=== PATIENT | female | born 1990 | race Caucasian/White ===

== ENCOUNTER 2023-01-29 15:33 | Emergency (ER) | payer OTHER, SELFPAY ==
[2023-01-29 15:44] VITALS: BP 122/86; PULSE 90; RESP 16; TEMP 36.8; O2SAT 99; BMI 36.6
--- NOTE | 2023-01-29 16:08 | ED_ITS ---
Documented by User: EMMANUEL Casarez 01/29/23 16:11 HPI - General Adult General Chief complaint: Extremity Problem, Nontraumatic Stated complaint: fibro flare up Time Seen by Provider: 01/29/23 15:39 Source: patient Mode of arrival: walk-in Limitations: no limitations History of Present Illness HPI narrative: patient is a 32-year-old female who presents to the emergency department concerned that she is having a fibromyalgia flareup. She states for the last several days she has had a burning pain in her left foot and ankle and states the pain radiates to the posterior left leg to the mid thigh. She has had no specific calf pain, no swelling or redness of the leg. She is on gabapentin for a previous diagnosis of fibromyalgia by her PCP. She was previously diagnosed with restless leg syndrome. She denies any injuries or traumas to the leg. She has had no redness, drainage, or wounds of the left leg. She is not concerned for . She has had no fevers, chills, nausea, vomiting, urinary symptoms. she is able to ambulate. She states she feels like her left foot is on fire , no numbness Related Data Home Medications Medication Instructions Recorded Confirmed duloxetine 60 mg capsule,delayed 60 mg PO DAILY 01/29/23 01/29/23 release gabapentin 300 mg capsule 300 mg PO BID 01/29/23 01/29/23 lamotrigine 100 mg tablet 100 mg PO DAILY 01/29/23 01/29/23 Previous Rx's Medication Instructions Recorded ketorolac 10 mg tablet 10 mg PO TID PRN pain #10 tabs 01/29/23 methocarbamol 750 mg tablet 750 mg PO TID PRN pain #20 tabs 01/29/23 methylprednisolone 4 mg tablets in See Rx Instructions .Route 01/29/23 a dose pack (Medrol (Bal)) .COMPLEX #21 ea Allergies Allergy/AdvReac Type Severity Reaction Status Date / Time No Known Drug Allergies Allergy Verified 01/29/23 15:42 Review of Systems ROS Constitutional Denies: fever or chills Cardiovascular Denies: chest pain Respiratory Denies: shortness of breath or cough Gastrointestinal Denies: nausea or vomiting Genitourinary Denies: painful urination or urinary incontinence Musculoskeletal Reports: extremity pain; Denies: back pain, neck pain or extremity swelling Integumentary/Breast Reports: skin pain; Denies: redness Hematologic/Lymphatic Denies: easy bruising PFSH [facility] Social History Smoking status: Heavy tobacco smoker Exam Narrative Exam Narrative: Gen.: Awake, alert, in no distress Head: Normocephalic, atraumatic ENT: Moist mucous membranes Respiratory: No respiratory distress Extremities: Moves extremities equally, normal flexion and extension of the left foot, no bony tenderness of the left foot or ankle. Left calf is soft and nontender. Patient is able to flex and extend at the left knee and hip. No swelling, redness or wounds noted of the left leg. Psych: Normal mood and affect Neuro: No focal neuro deficit Skin: Warm, dry, intact Constitutional Vital Signs, click to edit/add: Last Vital Signs Temp 98.3 F 01/29/23 15:44 Pulse 90 01/29/23 15:44 Resp 16 01/29/23 15:44 BP 122/86 01/29/23 15:44 Pulse Ox 99 01/29/23 15:44 O2 Del Method Room Air 01/29/23 15:44 Course Vital Signs Vital signs: Vital Signs Temperature 98.3 F 01/29/23 15:44 Pulse Rate 90 01/29/23 15:44 Respiratory Rate 16 01/29/23 15:44 Blood Pressure 122/86 01/29/23 15:44 Pulse Oximetry 99 01/29/23 15:44 Oxygen Delivery Method Room Air 01/29/23 15:44 Temperature 98.3 F 01/29/23 15:44 Pulse Rate 90 01/29/23 15:44 Respiratory Rate 16 01/29/23 15:44 Blood Pressure 122/86 01/29/23 15:44 Pulse Oximetry 99 01/29/23 15:44 Oxygen Delivery Method Room Air 01/29/23 15:44 Medical Decision Making MDM Narrative Medical decision making narrative: exam is consistent with left-sided sciatica versus fibromyalgia exacerbation. Patient started on a Medrol Dosepak, NSAIDs and muscle relaxants. Follow-up with PCP and return to the Emergency Room if symptoms change or worsen. Medical Records Medical records reviewed: Yes I reviewed the patient's medical records Discharge Plan Discharge Chief Complaint: Extremity Problem, Nontraumatic Clinical Impression: Acute pain of left lower extremity Patient Disposition: Home, Self-Care Time of Disposition Decision: 16:04 Condition: Good Prescriptions / Home Meds: New ketorolac 10 mg tablet 10 mg PO TID PRN (Reason: pain) Qty: 10 0RF methocarbamol 750 mg tablet 750 mg PO TID PRN (Reason: pain) Qty: 20 0RF methylprednisolone [Medrol (Bal)] 4 mg tablets,dose pack See Rx Instructions .ROUTE .COMPLEX Qty: 21 0RF Rx Instructions: Taper as directed No Action lamotrigine 100 mg tablet 100 mg PO DAILY gabapentin 300 mg capsule 300 mg PO BID duloxetine 60 mg capsule,delayed release(DR/EC) 60 mg PO DAILY Instructions: Fibromyalgia (ED), Sciatica (ED), Leg Pain (ED) Stand Alone Forms: Portal Instructions Referrals: Rosario Escamilla [Primary Care Provider] - 1 week Discharge Date/Time: 01/29/23 16:23 Documented by User: Aileen Rouse MD 01/29/23 17:03 HPI - General Adult General Chief complaint: Extremity Problem, Nontraumatic Stated complaint: fibro flare up Time Seen by Provider: 01/29/23 15:39 Related Data Home Medications Medication Instructions Recorded Confirmed duloxetine 60 mg capsule,delayed 60 mg PO DAILY 01/29/23 01/29/23 release gabapentin 300 mg capsule 300 mg PO BID 01/29/23 01/29/23 lamotrigine 100 mg tablet 100 mg PO DAILY 01/29/23 01/29/23 Previous Rx's Medication Instructions Recorded ketorolac 10 mg tablet 10 mg PO TID PRN pain #10 tabs 01/29/23 methocarbamol 750 mg tablet 750 mg PO TID PRN pain #20 tabs 01/29/23 methylprednisolone 4 mg tablets in See Rx Instructions .Route 01/29/23 a dose pack (Medrol (Bal)) .COMPLEX #21 ea Allergies Allergy/AdvReac Type Severity Reaction Status Date / Time No Known Drug Allergies Allergy Verified 01/29/23 15:42 PFSH PFS Social History Smoking status: Heavy tobacco smoker Exam Constitutional Vital Signs, click to edit/add: Last Vital Signs Temp 98.3 F 01/29/23 15:44 Pulse 90 01/29/23 15:44 Resp 16 01/29/23 15:44 BP 122/86 01/29/23 15:44 Pulse Ox 99 01/29/23 15:44 O2 Del Method Room Air 01/29/23 15:44 Course Vital Signs Vital signs: Vital Signs Temperature 98.3 F 01/29/23 15:44 Pulse Rate 90 01/29/23 15:44 Respiratory Rate 16 01/29/23 15:44 Blood Pressure 122/86 01/29/23 15:44 Pulse Oximetry 99 01/29/23 15:44 Oxygen Delivery Method Room Air 01/29/23 15:44 Temperature 98.3 F 01/29/23 15:44 Pulse Rate 90 01/29/23 15:44 Respiratory Rate 16 01/29/23 15:44 Blood Pressure 122/86 01/29/23 15:44 Pulse Oximetry 99 01/29/23 15:44 Oxygen Delivery Method Room Air 01/29/23 15:44 Medical Decision Making MDM Narrative Medical decision making narrative: exam is consistent with left-sided sciatica versus fibromyalgia exacerbation. Emmanuel thompson started on a Medrol Dosepak, NSAIDs and muscle relaxants. Follow-up with PCP and return to the Emergency Room if symptoms change or worsen. Attending physician attestation I have reviewed the mid-level documentation, agree with the documentation, medical decision making and treatment plan as outlined by the mid-level provider. Discharge Plan Discharge Chief Complaint: Extremity Problem, Nontraumatic Clinical Impression: Acute pain of left lower extremity Patient Disposition: Home, Self-Care Time of Disposition Decision: 16:04 Condition: Good Prescriptions / Home Meds: New ketorolac 10 mg tablet 10 mg PO TID PRN (Reason: pain) Qty: 10 0RF methocarbamol 750 mg tablet 750 mg PO TID PRN (Reason: pain) Qty: 20 0RF methylprednisolone [Medrol (Bal)] 4 mg tablets,dose pack See Rx Instructions .ROUTE .COMPLEX Qty: 21 0RF Rx Instructions: Taper as directed No Action lamotrigine 100 mg tablet 100 mg PO DAILY gabapentin 300 mg capsule 300 mg PO BID duloxetine 60 mg capsule,delayed release(DR/EC) 60 mg PO DAILY Instructions: Fibromyalgia (ED), Sciatica (ED), Leg Pain (ED) Stand Alone Forms: Portal Instructions Referrals: Rosario Escamilla [Primary Care Provider] - 1 week Discharge Date/Time: 01/29/23 16:23
[2023-01-29] MEDS: KETOROLAC TROMETHAMINE 60 MG/2 ML VIAL IM (16:16)
== END 2023-01-29 16:23 | disposition home or self-care (01) ==
PROVIDERS: Emergency Provider Emergency Medicine; PCP Nurse Practitioner
DX: M79.605 Pain in left leg (principal); M79.7 Fibromyalgia; Z79.899 Other long term (current) drug therapy; F17.210 Nicotine dependence, cigarettes, uncomplicated
CPT/HCPCS: 96372; 99284

== ENCOUNTER 2023-06-23 10:33 | Outpatient (OUT) | payer OTHER, SELFPAY ==
[2023-06-23 11:05] LABS: Basophils Percent Auto 0.7 % (0.2-2.0); Eosinophils Absolute Auto 0.1 10^3/uL (0.0-0.7); Eosinophils Percent Auto 2.5 % (0.9-7.0); Hematocrit 41.2 % (36.0-48.0); Hemoglobin 13.9 g/dL (12.0-16.0); Immature Granulocytes Abs Auto 0.01 10^3/uL (0.00-0.03); Immature Granulocytes Pct Auto 0.2 % (0.0-0.5); Lymphocytes Absolute Auto 1.8 10^3/uL (1.2-3.8); Lymphocytes Percent Auto 32.4 % (20.5-60.0); Mean Corpuscular HGB Conc 33.7 g/dL (29.9-35.2); Mean Corpuscular Hemoglobin 30.5 pg (26.7-34.0); Mean Corpuscular Volume 90.4 fL (81.0-99.0); Mean Platelet Volume 10.2 fL (9.5-13.5); Monocytes Absolute Auto 0.4 10^3/uL (0.3-0.8); Monocytes Percent Auto 7.6 % (1.7-12.0); Neutrophils Absolute Auto 3.2 10^3/uL (1.4-6.5); Neutrophils Percent Auto 56.6 % (43.0-75.0); Platelet Count 160 10^3/uL (150-450); Red Blood Count 4.56 10^6/uL (4.20-5.40); Red Cell Distribution Width 12.2 % (11.0-15.0); White Blood Count 5.6 10^3/uL (4.0-11.0)
[2023-06-23 11:42] LABS: Estimated Average Glucose 94 mg/dL; Glycohemoglobin A1C 4.9 % (4.5-6.2)
[2023-06-23 11:58] LABS: Free T4 0.78 ng/dL (0.76-1.46)
[2023-06-23 12:02] LABS: HCG Quantitative <1 mIU/mL; Thyroid Stimulating Hormone 2.347 uIU/mL (0.358-3.740)
[2023-06-24 08:13] LABS: FSH 10.4 mIU/mL (.); Prolactin 6.1 ng/mL (4.8-33.4)
[2023-06-29 09:07] LABS: DHEA, Serum 498 ng/dL (31-701)
== END 2023-06-23 10:34 | disposition home or self-care (01) ==
LOC: LAB 10:37
PROVIDERS: PCP Nurse Practitioner; Visit Provider Obstetrics & Gynecology
DX: E28.2 Polycystic ovarian syndrome (principal); N64.52 Nipple discharge
CPT/HCPCS: 36415; 82626; 82627; 83001; 83002; 83036; 84146; 84439; 84443; 84702; 85025; 87070

== ENCOUNTER 2023-07-08 10:03 | Outpatient (OUT) | payer OTHER, SELFPAY ==
--- NOTE | 2023-07-08 | US_ITS ---
The [address] [address] Patient Name: LINA ALCANTAR MRN: [id number] date: 1990 Sex: F Assigned Patient Location: [facility] Current Patient Location: [facility] Accession/Order Number: [id number] Exam Date: 07/08/2023 10:06 Report Date: 07/08/2023 11:26 At the request of: JOHN RAJPUT Procedure: US pelvis w/ transvaginal EXAM: Pelvic ultrasound HISTORY: . PCOS . COMPARISON: None. TECHNIQUE: Transabdominal and transvaginal scanning was performed FINDINGS: Scanning of the pelvis demonstrates uterus to measure 9.4 x 4.7 x 6.3 cm. Uterus is anteverted. Endometrial complex measures 6 mm. Right ovary measures 2.4 x 1.5 x 1.9 cm. Color-flow is noted. There are a few small follicles noted. Left ovary measures 3.6 x 2.6 x 2 cm. Color-flow is noted. There are a few follicles noted. No fluid is noted in the cul-de-sac. US/US pelvis w/ transvaginal IMPRESSION: 1. Normal-appearing uterus and endometrial complex. 2. Normal-appearing ovaries. Electronically authenticated by: GINNY JEFFRIES Date: 07/08/2023 11:26
--- OUTSIDE RECORDS SUMMARY | 2023-07-08 10:19 | XMS_ITS | CCD ---
Author Name Unknown Address [address] [place] [address] Organization [facility] Care Team Providers Care Hand Ii Thermal Cutter Name Role Phone Lissette Lee Unavailable Lissette Shin Unavailable AICHHOLZ, ORE SMELTER MERCY Admitting Unavailable AICHHOLZ, ORE SMELTER MERCY Attending Unavailable AICHHOLZ, ORE SMELTER MERCY Primary Care Unavailable AICHHOLZ, ORE SMELTER MERCY Consulting Unavailable AICHHOLZ, ORE SMELTER MERCY Admitting Unavailable AICHHOLZ, ORE SMELTER MERCY Attending Unavailable AICHHOLZ, ORE SMELTER MERCY Primary Care Unavailable AICHHOLZ, ORE SMELTER MERCY Consulting Unavailable AICHHOLZ, ORE SMELTER MERCY Admitting Unavailable AICHHOLZ, ORE SMELTER MERCY Attending Unavailable AICHHOLZ, ORE SMELTER MERCY Primary Care Unavailable AICHHOLZ, ORE SMELTER MERCY Consulting Unavailable AICHHOLZ, ORE SMELTER MERCY Primary Care Unavailable ROBERT ONTIVEROS Consulting Unavailable ROBERT ONTIVEROS Admitting Unavailable ROBERT ONTIVEROS Attending Unavailable AICHHOLZ, ORE SMELTER MERCY Primary Care Unavailable MARICEL ., CAROLYNN Admitting Unavailable MARICEL .GUSTAVOID Attending Unavailable MARICEL ., CAROLYNN Consulting Unavailable AICHHOLZ, ORE SMELTER MERCY Primary Care Unavailable MARICEL ., CAROLYNN Admitting Unavailable MARICEL .GUSTAVOID Attending Unavailable MARICEL ., CAROLYNN Consulting Unavailable AICHHOLZ, ORE SMELTER MERCY Primary Care Unavailable DR MARCY GU Admitting Unavailable SAMANTHA Vasquez, DR VIDAL Attending Unavailable Emmanuel Roman Consulting Unavailable DR MARCY GU Consulting Unavailable AICHHOLZ, ORE SMELTER MERCY Admitting Unavailable AICHHOLZ, ORE SMELTER MERCY Attending Unavailable AICHHOLZ, ORE SMELTER MERCY Primary Care Unavailable AICHHOLZ, ORE SMELTER MERCY Consulting Unavailable AICHHOLZ, ORE SMELTER MERCY Admitting Unavailable AICHHOLZ, ORE SMELTER MERCY Attending Unavailable CRISTINO GRIJALVAA Primary Care Unavailable CRISTINO GRIJALVA MERCY Consulting Unavailable Unavailable Primary Care Provider UnavailMani Bonds MD Primary Care Provider DENISSE ANN Attending Unavailable DENISSE ANN Attending Unavailable BELEN SPENCER Attending Unavailable MANI GALVAN Primary Care Unavailable MERCY GRIJALVA Attending Unavailable JOHN RAJPUT Attending Unavailable Medications Current Medications Medication Drug Class(es) Dates Sig (Normalized) Sig (Original) acetaminophen 325 mg oral tablet (3 sources) Start: 10-23-2022 acetaminophen (TYLENOL) tablet 650 mg take 2 tablets by mo ut every six hours as needed for pain acetaminophen (TYLENOL) 325 MG tablet Ta ke 2 tablets by mouth every 6 hours as needed for Pain 0 Active acetaminophen 325 mg / HYDROcodone bitartrate 5 mg oral tablet (3 sources) Opioid Agonist Start: 10-22-2022 End: 10-24-2022 HYDROcodone-acetaminophen (NORCO) 5-325 MG per tablet Indications: Nonintractable headache, unspecified chronicity pattern, unspecified headache type , Acute recurrent sinusitis, unspecified location Take 1 tablet by mouth every 6 hours as needed for Pain for up to 2 days. Intended supply: 3 days. Take lowest dose possible to manage pain Max Daily Amount: 4 tablets 4 tablet 0 10/22/2022 10/24/2022 Active Start: 10-22-2022 End: 10-22-2022 HYDROcodone-acetaminophen (N ORCO) 5-325 MG per tablet 1 tablet [id number] 200 actuat albuterol 0.09 mg/actuat metered dose inhaler (1 source) beta2-Adrenergic Agonist Start: 12-22-2021 take 2 puff(s) by inhalation every four to six hours as needed Albuterol Sulfate HFA 108 (90 Base) MCG/ACT 2 puffs as needed Inhalation every 4-6 hours for 14 days Nov, Active amoxicillin 875 mg / clavulanate 125 mg oral tablet (2 sources) Penicillin-class Antibacterial Start: 10-22-2022 End: 11-01-2022 take 1 tablet by mouth twice daily amoxicillin-cla vulanate (AUGMENTIN) 875-125 MG per tablet Take 1 tablet by mouth 2 times daily for 10 days 20 tablet 0 10/22/2022 11/01/2022 Active cetirizine hydrochloride 10 mg oral tablet (1 source) Histamine-1 Receptor Antagonist Start: 06-04-2021 take 1 tablet by mouth every twelve hours Cetirizine HCl 10 MG 1 tablet Orally Twice a day for 30 day(s) May, Active DULoxetine 60 mg delayed release oral capsule (2 sources) Serotonin and Norepinephrine Reuptake Inhibitor take 1 capsule by mouth once daily DULoxetine (CYMBALTA) 60 MG extended release capsule Take 1 capsule by mouth daily 0 Active fluticasone propionate 0.05 mg/actuat metered dose nasal spray (3 sources) Corticosteroid Start: 06-04-2021 take 1 spray(s) nasal route twice daily Flonase Allergy Relief 50 MCG/ACT 1 spray in each nostril Nasally twice a day for 30 day(s) May, Active Fluticasone Prop ionate (FLONASE NA) by Nasal route 0 Active gabapentin 300 mg oral capsule (2 sources) Anti-epileptic Agent take 1 capsule by mouth once daily gabapentin (NEURONTIN) 300 MG capsule Take 1 capsule by mouth daily. 0 Active rOPINIRole 2 mg oral tablet (1 source) Nonergot Dopamine Agonist take 1 tablet by mouth once daily at bedtime rOPINIRole HCl 2 MG 1 tablet 1 to 3 hours before bedtime Orally Once a day Active Completed/Discontinued Medications Medication Drug Class(es) Dates Sig (Normalized) Sig (Original) 1 ml diphenhydrAMINE hydrochloride 50 mg/ml cartridge (2 sources) Histamine-1 Receptor Antagonist Start: 10-22-2022 End: 10-23-2022 diphenhydrAMINE (BENADRYL) injection 25 mg 1 ml haloperidol 5 mg/ml injection (1 source) Typical Antipsychotic Start: 10-23-2022 End: 10-23-2022 haloperidol lactate (HALDOL) injection 2 mg 1 ml ketorolac tromethamine 30 mg/ml cartridge (1 source) Nonsteroidal Anti-inflammatory Drug, Cyclooxygenase Inhibitor Start: 10-22-2022 End: 10-22-2022 ketorolac (TORADOL) injection 30 mg promethazine hydrochloride 25 mg oral tablet (1 source) Phenothiazine Start: 10-22-2022 End: 10-22-2022 promethazine (PHENERGAN) tablet 25 mg 50 ml sodium chloride 9 mg/ml injection (2 sources) Start: 10-22-2022 End: 10-23-2022 0.9 % sodium chloride bolus Problems Active Problems Problem Classification Problem Date Documented Da te Episodic/Chronic Headache; including migraine (2 sources) Migraine without aura, not refractory ; Translations: [Migraine without aura, not intractable, with status migrainosus] Onset: 10-23-2022 Chronic Headache; including migraine (1 source) Headache; Translations: [Nonintractable headache, unspecified chronicity pattern, unspecified headache type] Episodic Headache; including migraine (1 source) Headache; including migraine; Translations: [Headache, unspecified] Onset: 10-22-2022 Nausea and vomiting (5 sources) Nausea with vomiting, unspecified; Translations: [Nausea] Onset: 05-01-2022 Episodic Other gastrointestinal disorders (2 sources) Diarrhea; Translations: [Diarrhea, unspecified] Episodic Other upper respiratory disease (1 source) Congestion of nasal sinus; Translations: [Nasal congestion] Episodic Residual codes; unclassified (1 source) Acquired absence of other specified parts of digestive tract; Translations: [ACQ ABSENCE OTH PART DIGESTV TRACT] Onset: 07-21-2022 Episodic Residual codes; unclassified (1 source) Pain, unspecified; Translations: [Pain, unspecified] Onset: 05-26-2023 Episodic Substance-related disorders (1 source) Nicotine dependence, cigarettes, uncomplicated; Translations: [NICOTINE DEPEND CIGARETTES UNCOMP] Onset: 05-05-2022 Chronic Unclassified (4 sources) CONTACT W/AND (SUSP) EXPOS COVID-19; Translations: [CONTACT W/AND (SUSP) EXPOS COVID-19] Onset: 05-05-2022 Viral infection (1 source) COVID-19; Translations: [COVID-19] Onset: 05-26-2023 Past or Other Problems Problem Classification Problem Date Documented Date Episodic/Chronic Abdominal pain (3 sources) Unspecified abdominal pain; Translations: [UNSPECIFIED ABDOMINAL PAIN] Onset: 12-24-2021 Episodic Allergic reactions (1 source) Unspecified contact dermatitis, unspecified cause; Translations: [UNS CONTACT DERMATITIS UNS CAUSE] Onset: 02-10-2022 Episodic Fever of unknown origin (2 sources) Fever, unspecified; Translations: [FEVER UNSPECIFIED] Onset: 12-22-2021 Resolved: 12-22-2021 Episodic Fluid and electrolyte disorders (1 source) Dehydration; Translations: [DEHYDRATION] Onset: 05-05-2022 Episodic Genitourinary symptoms and ill-defined conditions (5 sources) Unspecified abnormal findings in urine; Translations: [UNSPECIFIED ABNORMAL FINDINGS URINE] Onset: 12-31-2021 Episodic Immunizations and screening for infectious disease (1 source) Contact with and (suspected) exposure to other viral communicable diseases Onset: 06-04-2021 Resolved: 06-04-2021 Episodic Malaise and fatigue (5 sources) Other fatigue; Translations: [OTHER FATIGUE] Onset: 12-22-2021 Resolved: 12-22-2021 Episodic Other connective tissue disease (4 sources) Myalgia, unspecified site; Translations: [MYALGIA UNSPECIFIED SITE] Onset: 04-23-2022 Episodic Other screening for suspected conditions (not mental disorders or infectious disease) (1 source) Other specified abnormal findings of blood chemistry; Translations: [OTH SPEC ABNORMAL FINDINGS BLD CHEM] Onset: 01-01-2022 Episodic Other skin disorders (3 sources) Rash and other nonspecific skin eruption; Translations: [RASH OTH NONSPECIFIC SKIN ERUPTION] Onset: 02-08-2022 Episodic Other upper respiratory disease (1 source) Nasal congestion; Translations: [Nasal congestion] Onset: 10-23-2022 Episodic Other upper respiratory infections (11 sources) Sore throat symptom; Translations: [Acute pharyngitis, unspecified] Onset: 06-04-2021 Resolved: 12-22-2021 Episodic Otitis media and related conditions (1 source) Other acute nonsuppurative otitis media, bilateral Onset: 06-04-2021 Resolved: 06-04-2021 Episodic Unclassified (1 source) Cough R05.9 Onset: 12-22-2021 Resolved: 12-22-2021 Unclassified (1 source) CONTACT W/AND (SUSP) EXPOS COVID-19; Translations: [CONTACT W/AND (SUSP) EXPOS COVID-19] Onset: 05-20-2022 Urinary tract infections (1 source) Urinary tract infection, site not specified; Translations: [UTI SITE NOT SPECIFIED] Onset: 12-26-2021 Episodic Viral infection (3 sources) Viral infection, unspecified; Translations: [Viral disease] Onset: 05-05-2022 Episodic Results Test Name Value Interpretation Reference Range Facility Flu A/B Ag Detectionon 05-26 Flu A Ag Detection Negative Normal NEG [facility] Comment on above: Result Comment: for Influenza A Antigen Performed By: #### F DALTON #### [facility] [address] [place] [address] [place] [address] Feed Handler: Taran De Los Santos MD Flu B Ag Detection Negative Normal NEG [facility] Comment on above: Result Comment: for Influenza B Antigen. Performed By: #### F DALTON #### [facility] [address] [place] [address] Feed Handler: Taran De Los Santos MD [id number] 05-26-2023 SARS-CoV-2 (COVID-19) RNA AMPARO+probe Ql (Unsp spec) Detected Abnormal NOTDET [facility] Comment on above: Result Comment: Rapid NAAT: The specimen is POSITIVE for SARS-Cov-2, the novel coronavirus associated with COVID-19. This test has been authorized by the FDA under an Emergency Use Authorization (EUA) for use by authorized laboratories. The ID NOW COVID-19 assay is designed to detect the virus that causes COVID-19 in patients with signs and symptoms of infection who are suspected of COVID-19. An individual without symptoms of COVID-19 and who is not shedding SARS-CoV-2 virus would expect to have a negative (not detected) result in this assay. Fact sheet for Healthcare Providers: https://www.fda.gov/media/334031/download Fact sheet for Patients: https://www.fda.gov/media/792991/download Methodology: Isothermal Nucleic Acid Amplification Results reported to the appropriate Health Department Performed By: #### R CAMBERING MACHINE OPERATOR #### [facility] [address] [place] [address] Feed Handler: Enrique Ortega MD [facility] [address] [place] [address] [place] [address] Feed Handler: Taran De Los Santos MD Resp Viral Panelon 3 Adenovirus Detected Abnormal NOTDET [facility] Comment on above: Performed By: #### R CAMBERING MACHINE OPERATOR #### [id number] [place] [address] Feed Handler: Enrique Ortega MD [facility] [address] [place] [address] [place], [place] [id number] Feed Handler: MD Stella Newbyt.[email or web address] Not detected Normal [facility] Comment on above: Performed By: #### R CAMBERING MACHINE OPERATOR #### [address] [address] Feed Handler: Enrique Ortega MD [address] [place], [place] [id number] Feed Handler: Taran De Los Santos MD Bordetella pertussis Not detected Normal [facility] Comment on above: Performed By: #### R CAMBERING MACHINE OPERATOR #### [address] [address] Feed Handler: Enrique Ortega MD [facility] [address] [place] [address] [place] [address] Feed Handler: Taran De Los Santos MD Chlamyd.pneumoniae Not detected Normal [facility] Comment on above: Performed By: #### R CAMBERING MACHINE OPERATOR #### [address] [address] Feed Handler: Enrique Ortega MD [facility] [address] [place] [address] [place] [address] Feed Handler: Taran De Los Santos MD Coronavirus [id number] Not detected Normal [facility] Comment on above: Performed By: #### R CAMBERING MACHINE OPERATOR #### [address] [address] Feed Handler: Enrique Otrega MD [facility] [address] [place] [address] [place], [place] [id number] Feed Handler: Taran De Los Santos MD Coronavirus HKU1 Not detected Normal [facility] Comment on above: Performed By: #### R CAMBERING MACHINE OPERATOR #### [facility] [address] [place] [address] Feed Handler: Enrique Ortega MD [facility] [address] [place] [address] Dr[place], [place] [id number] Feed Handler: Taran De Los Santos MD Coronavirus NL63 Not detected [facility] Comment on above: Performed By: #### R CAMBERING MACHINE OPERATOR #### [address] [address] Feed Handler: Enrique Ortega MD [facility] [address] [place] [address] [place], [place] [id number] Feed Handler: Taran De Los Santos MD Coronavirus OC43 Not detected [facility] Comment on above: Performed By: #### R CAMBERING MACHINE OPERATOR #### [address] [address] Feed Handler: Enrique Ortega MD [facility] [address] [place] [address] [place] [address] Feed Handler: Taran De Los Santos MD Human Metapneumo Not detected [facility] Comment on above: Performed By: #### R CAMBERING MACHINE OPERATOR #### [address] [address] Feed Handler: Enrique Ortega MD [facility] [address] [place] [address] [place] [address] Feed Handler: Taran De Los Santos MD Influenza A Not detected [facility] Comment on above: Performed By: #### R CAMBERING MACHINE OPERATOR #### [address] [address] Feed Handler: Enrique Ortega MD [facility] [address] [place] [address] [place] [address] Feed Handler: Taran De Los Santos MD Influenza B Not detected Normal [facility] Comment on above: Performed By: #### R CAMBERING MACHINE OPERATOR #### [facility] [address] [place] [address] Feed Handler: Enrique Ortega MD [facility] [address] [place] [address] [place] [address] Feed Handler: Taran De Los Santos MD Mycoplas.pneumoniae Not detected Normal [facility] Comment on above: Result Comment: Perf ormed by multiplexed nucleic acid assay. Performed By: #### R CAMBERING MACHINE OPERATOR #### [address] [address] Feed Handler: Enrique Ortega MD [facility] [address] [place] [address] [place] [address] Feed Handler: Taran De Los Santos MD Parainfluenza 1 Not detected Normal [facility] Comment on above: Performed By: #### R CAMBERING MACHINE OPERATOR #### [address] [address] Feed Handler: Enrique Ortega MD [facility] [address] [place] [address] [place] [address] Feed Handler: Taran De Los Santos MD Parainfluenza 2 Not detected [facility] Comment on above: Performed By: #### R CAMBERING MACHINE OPERATOR #### [address] [address] Feed Handler: Enrique Ortega MD [facility] [address] [place] [address] [place] [address] Feed Handler: Taran De Los Santos MD Parainfluenza 3 Not detected Normal [facility] Comment on above: Performed By: #### R CAMBERING MACHINE OPERATOR #### [facility] [address] [place] [address] Feed Handler: Enrique Ortega MD [facility] [address] [place] [address] [place] [address] Feed Handler: Taran De Los Santos MD Parainfluenza 4 Not detected Normal [facility] Comment on above: Performed By: #### R CAMBERING MACHINE OPERATOR #### [facility] [address] [place] [address] Feed Handler: Enrique Ortega MD [facility] [address] [place] [address] [place], [place] [id number] Feed Handler: Taran De Los Santos MD Resp Syncytial Virus Not detected Normal [facility] Comment on above: Performed By: #### R CAMBERING MACHINE OPERATOR #### [address] [address] Feed Handler: Enrique Ortega MD [address] [place], [place] [id number] Feed Handler: Taran De Los Santos MD Rhino/Enterovirus Not detected [facility] Comment on above: Performed By: #### R CAMBERING MACHINE OPERATOR #### [facility] [address] [place] [address] Feed Handler: Enrique Ortega MD [facility] [address] [place] [address] [address], [place] [id number] Feed Handler: Taran De Los Santos MD SARS-CoV-2 (COVID-19) RNA AMPARO+probe Ql (Unsp spec) Not detected Normal [facility] Comment on above: Performed By: #### R CAMBERING MACHINE OPERATOR #### [address] [address] Feed Handler: Enrique Ortega MD [facility] [address] [place] [address] [place], [place] [id number] Feed Handler: Taran De Los Santos MD [facility] 10-23-2022 Anion gap [Moles/Vol] 10 mmol/L 9 - 17 mmol/L [facility] Calcium [Mass/Vol] 8.4 mg/dL Low 8.6 - 10. 4 mg/dL [facility] Chloride [Moles/Vol] 107 mmol/L 98 - 10 7 mmol/L [facility] CO2 [Moles/Vol] 24 mmol/L 20 - 31 mmol/L [facility] Creatinine [Mass/Vol] 0.88 mg/dL 0.50 - 0.90 mg/dL [facility] GFR/1.73 sq M.predicted MDRD (S/P/Bld) [Vol rate/Area] - PINF [facility] Comment on above: These results are not intended for use in patients <18 years of age. eGFR results are calculated without a race factor using the 2020 CKD-EPI equation. Careful clinical correlation is recommended, particularly when comparing to results calculated using previous equations. The CKD-EPI equation is less accurate in patients with extremes of muscle mass, extra-renal metabolism of creatine, excessive creatine ingestion, or following therapy that affects renal tubular secretion. Glucose [Mass/Vol] 95 mg/dL 70 - 99 mg/dL [facility] Potassium [Moles/Vol] 3.9 mmol/L 3.7 - 5.3 mmol/L [facility] Sodium [Moles/Vol] 141 mmol/L 135 - 144 mmol/L [facility] Urea nitrogen [Mass/Vol] 7 mg/dL 6 - 20 mg/dL [facility] Urea nitrogen/Creatinine [Mass ratio] 8 mg/mg Low 9 - 20 [facility] Basic Metabolic Profon 10-23 Anion gap [Moles/Vol] 10 mmol/L Normal -17 [facility] Comment on above: Performed By: #### C DP, IPF, SED, BMP, CRP #### [facility] [address] [place] [address] Feed Handler: Taran De Los Santos MD BUN/CRE Ratio 8 Low 9-20 [facility] Comment on above: Performed By: #### C DP, IPF, SED, BMP, CRP #### [facility] [address] [place] [address] Feed Handler: Taran De Los Santos MD Calcium [Mass/Vol] 8.4 mg/dL Low 8.6-10.4 [facility] Comment on above: Performed By: #### C DP, IPF, SED, BMP, CRP #### [facility] [address] [place] [address] Feed Handler: Taran De Los Santos MD Chloride [Moles/Vol] 107 mmol/L Normal 98-107 [facility] Comment on above: Performed By: #### C DP, IPF, SED, BMP, CRP #### [facility] [address] [place] [address] Feed Handler: Taran De Los Santos MD CO2 [Moles/Vol] 24 mmol/L Normal 20-31 [facility] Comment on above: Performed By: #### C DP, IPF, SED, BMP, CRP #### [facility] [address] [place] [address] Feed Handler: Taran De Los Santos MD Creatinine [Mass/Vol] 0.88 mg/dL Normal 0.50-0.90 [facility] Comment on above: Performed By: #### C DP, IPF, SED, BMP, CRP #### [facility] [address] [place] [address] Feed Handler: Taran De Los Santos MD GFR/1.73 sq M.predicted among non-blacks MDRD (S/P/Bld) [Vol rate/Area] mL/min/{1.73_m2} Normal >60 [facility] Comment on above: Result Comment: These results are not intended for use in patients <18 years of age. eGFR results are calculated without a race factor using the 2020 CKD-EPI equation. Careful clinical correlation is recommended, particularly when comparing to results calculated using previous equations. The CKD-EPI equation is less accurate in patients with extremes of muscle mass, extra-renal metabolism of creatine, excessive creatine ingestion, or following therapy that affects renal tubular secretion. Performed By: #### C DP, IPF, SED, BMP, CRP #### [facility] [address] [place] [address] Feed Handler: Taran De Los Santos MD Glucose [Mass/Vol] 95 mg/dL Normal 70-99 [facility] Comment on above: Performed By: #### C DP, IPF, SED, BMP, CRP #### [facility] [address] [place] [address] Feed Handler: Taran De Los Santos MD Potassium [Moles/Vol] 3.9 mmol/L Normal 3.7-5.3 [facility] Comment on above: Performed By: #### C DP, IPF, SED, BMP, CRP #### [facility] [address] [place] [address] Feed Handler: Taran De Los Santos MD Sodium [Moles/Vol] 141 mmol/L Normal 135-144 [facility] Comment on above: Performed By: #### C DP, IPF, SED, BMP, CRP #### [address] [place] [address] Feed Handler: Taran De Los Santos MD Urea nitrogen [Mass/Vol] 7 mg/dL Normal 6-20 [facility] Comment on above: Performed By: #### C DP, IPF, SED, BMP, CRP #### [address] [place] [address] Feed Handler: Taran De Los Santos MD C-Reactive Proteinon 023 CRP [Mass/Vol] 34.0 mg/L High 0.0-5.0 [facility] Comment on above: Performed By: #### C DP, IPF, SED, BMP, CRP #### [facility] [address] [place] [address] [place], [place] [id number] Feed Handler: Taran De Los Santos MD CRP High sensitivity method [Mass/Vol] 34 mg/L High 0.0 - 5.0 mg/L [facility] CBC with Auto Differentialon 10-23-2022 Basophils (Bld) [#/Vol] [facility] Basophils/100 WBC (Bld) 0 % 0 - 2 % [facility] Eosinophils (Bld) [#/Vol] 0.07 10*3/uL [facility] Eosinophils/100 WBC (Bld) 1 % 1 - 4 % [facility] Erythrocyte distribution width (RBC) [Ratio] 13.0 % 11.8 - 14.4 % [facility] Hematocrit (Bld) [Volume fraction] 39.0 % 36.3 - 47.1 % [facility] Hemoglobin (Bld) [Mass/Vol] 13.1 g/dL 11.9 - 15.1 g/dL [facility] Immature granulocytes (Bld) [#/Vol] [facility] Immature granulocytes/100 WBC (Bld) 0 % 0 [facility] Interpretation and review of laboratory results Abnormal [facility] Lymphocytes/100 WBC (Bld) 17 % Low 24 - 43 % [facility] Lymphocytes/100 WBC (Bld) 1.06 % Low [facility] MCH (RBC) [Entitic mass] 31.2 pg 25.2 - 33.5 pg [facility] MCHC (RBC) [Mass/Vol] 33.6 g/dL 28.4 - 34.8 g/dL [facility] MCV (RBC) [Entitic vol] 92.9 fL 82.6 - 102.9 fL [facility] Monocytes/100 WBC (Bld) 13 % High 3 - 12 % [facility] Monocytes/100 WBC (Bld) 0.82 % [facility] Neutrophils/100 WBC (Bld) 69 % High 36 - 65 % [facility] NRBC Automated 0.0 0.0 per 100 WBC [facility] Platelets (Bld) [#/Vol] See Reflexed IPF Result [facility] RBC (Bld) [#/Vol] 4.20 10*6/uL 3.95 - 5.1 1 m/uL [facility] Segmented neutrophils/100 WBC (Bld) 4.40 % [facility] WBC other (Bld) [#/Vol] 6.4 [facility] CBC with Diffon 10-23-2022 Abs. Basophil <0.03 Normal 0.00-0.20 [facility] Comment on above: Performed By: #### C DP, IPF, SED, BMP, CRP #### [address] [place], [place] [id number] Feed Handler: Taran De Los Santos MD Abs.Imm.Granulocyte <0.03 Normal 0.00-0.30 [facility] Comment on above: Performed By: #### C DP, IPF, SED, BMP, CRP #### [address] [place] [place] [address] Feed Handler: Taran De Los Santos MD Abs.Neutrophil (Seg) 4.40 k/uL Normal 1.50-8.10 [facility] Comment on above: Performed By: #### C DP, IPF, SED, BMP, CRP #### [address] [place] [id number] Feed Handler: Taran De Los Santos MD Basophils/100 WBC (Bld) 0 % Normal 0-2 [facility] Comment on above: Performed By: #### C DP, IPF, SED, BMP, CRP #### [address] [place] [id number] Feed Handler: Taran De Los Santos MD Eosinophils (Bld) [#/Vol] 0.07 10*3/uL Normal 0.00-0.44 [facility] Comment on above: Performed By: #### C DP, IPF, SED, BMP, CRP #### [address] [place], [facility]83 Feed Handler: Taran De Los Santos MD Eosinophils/100 WBC (Bld) 1 % Normal 1-4 [facility] Comment on above: Performed By: #### C DP, IPF, SED, BMP, CRP #### [address] [place], [place] [id number] Feed Handler: Taran De Los Santos MD Immature granulocytes/100 WBC (Bld) 0 % Normal 0 [facility] Comment on above: Performed By: #### C DP, IPF, SED, BMP, CRP #### [facility] [address] [place] [address] Feed Handler: Taran De Los Santos MD Lymphocytes (Bld) [#/Vol] 1.06 10*3/uL Low 1.10-3.70 [facility] Comment on above: Performed By: #### C DP, IPF, SED, BMP, CRP #### [facility] [address] [place], [place] [id number] Feed Handler: Taran De Los Santos MD Lymphocytes/100 WBC (Bld) 17 % Low 24-43 [facility] Comment on above: Performed By: #### C DP, IPF, SED, BMP, CRP #### [address] [place] [id number] Feed Handler: Taran De Los Santos MD Monocytes (Bld) [#/Vol] 0.82 10*3/uL Normal 0.10-1.20 [facility] Comment on above: Performed By: #### C DP, IPF, SED, BMP, CRP #### [address] [place], [place] [id number] Feed Handler: Taran De Los Santos MD Monocytes/100 WBC (Bld) 13 % High 3-12 [facility] Comment on above: Performed By: #### C DP, IPF, SED, BMP, CRP #### [facility] [address] [place] [address] [place] [place], [place] [id number] Feed Handler: Taran De Los Santos MD Neutrophil (Seg) 69 % High 36-65 [facility] Comment on above: Performed By: #### C DP, IPF, SED, BMP, CRP #### [facility] [address] [place] [address] Feed Handler: Taran De Los Santos MD Erythrocyte distribution width (RBC) [Ratio] 13.0 % Normal 11.8-14.4 [facility] Comment on above: Performed By: #### C DP, IPF, SED, BMP, CRP #### [address] [place] [id number] Feed Handler: Taran De Los Santos MD Hematocrit (Bld) [Volume fraction] 39.0 % Normal 36.3-47.1 [facility] Comment on above: Performed By: #### C DP, IPF, SED, BMP, CRP #### [address] [place] [id number] Feed Handler: Taran De Los Santos MD Hemoglobin (Bld) [Mass/Vol] 13.1 g/dL Normal 11.9-15.1 [facility] Comment on above: Performed By: #### C DP, IPF, SED, BMP, CRP #### [address] [place], [facility]83 Feed Handler: Taran De Los Santos MD MCH (RBC) [Entitic mass] 31.2 pg Normal 25.2-33.5 [facility] Comment on above: Performed By: #### C DP, IPF, SED, BMP, CRP #### [address] [place] [address] Feed Handler: Taran De Los Santos MD MCHC (RBC) [Mass/Vol] 33.6 g/dL Normal 28.4-34.8 [facility] Comment on above: Performed By: #### C DP, IPF, SED, BMP, CRP #### [address] [place], [facility]83 Feed Handler: Taran De Los Santos MD MCV (RBC) [Entitic vol] 92.9 fL Normal 82.6-102.9 [facility] Comment on above: Performed By: #### C DP, IPF, SED, BMP, CRP #### [address] [place] [address] Feed Handler: Taran De Los Santos MD NRBC Automated 0.0 per 100 WBC Normal 0.0 [facility] Comment on above: Performed By: #### C DP, IPF, SED, BMP, CRP #### [facility] [address] [place] [address] [place]. [place], [place] [id number] Feed Handler: Taran De Los Santos MD Platelet Count See Reflexed IPF Result Normal 138-453 [facility] Comment on above: Performed By: #### C DP, IPF, SED, BMP, CRP #### [address] [place], [place] [id number] Feed Handler: Taran De Los Santos MD RBC (Bld) [#/Vol] 4.20 10*6/uL Normal 3.95-5.11 [facility] Comment on above: Performed By: #### C DP, IPF, SED, BMP, CRP #### [address] [place], [facility]83 Feed Handler: Taran De Los Santos MD WBC (Bld) [#/Vol] 6.4 10*3/uL Normal 3.5-11.3 [facility] Comment on above: Performed By: #### C DP, IPF, SED, BMP, CRP #### [address] [place], [facility]83 Feed Handler: Taran De Los Santos MD COVID-19, Rapidon 10-23-2022 SARS-CoV-2 (COVID-19) RdRp gene AMPARO+probe Ql (Resp) Not detected Not Detected [facility] Comment on above: Rapid NAAT: The specimen is NEGATIVE for SARS-CoV-2, the novel coronavirus associated with COVID-19. The ID NOW COVID-19 assay is designed to detect the virus that causes COVID-19 in patients with signs and symptoms of infection who are suspected of COVID-19. An individual without symptoms of COVID-19 and who is not shedding SARS-CoV-2 virus would expect to have a negative (not detected) result in this assay. Negative results should be treated as presumptive and, if inconsistent with clinical signs and symptoms or necessary for patient management, should be tested with an alternative molecular assay. Negative results do not preclude SARS-CoV-2 infection and should not be used as the sole basis for patient management decisions. Fact sheet for Healthcare Providers: https://www.fda.gov/media/623306/download Fact sheet for Patients: https://www.fda.gov/media/796770/download Methodology: Isothermal Nucleic Acid Amplification Specimen Description .NASOPHARYNGEAL SWAB [facility] CT HEAD WO CONTRASTon 2022 CT HEAD WO CONTRAST EXAMINATION: CT OF THE HEAD WITHOUT CONTRAST 10/23/2022 9:24 am TECHNIQUE: CT of the head was performed without the administration of intravenous contrast. Automated exposure control, iterative reconstruction, and/or weight based adjustment of the mA/kV was utilized to reduce the radiation dose to as low as reasonably achievable. COMPARISON: None. HISTORY: ORDERING SYSTEM PROVIDED HISTORY: headache x 2 days TECHNOLOGIST PROVIDED HISTORY: headache x 2 days Decision Support Exception - unselect if not a suspected or confirmed emergency medical condition->Emergency Medical Condition (MA) Is the patient ?->No FINDINGS: BRAIN/VENTRICLES: There is no acute intracranial hemorrhage, mass effect or midline shift. No abnormal extra-axial fluid collection. The sanderson-white differentiation is maintained without evidence of an acute infarct. There is no evidence of hydrocephalus. ORBITS: The visualized portion of the orbits demonstrate no acute abnormality. SINUSES: There is mild frontal and patchy ethmoid sinus mucosal thickening SOFT TISSUES/SKULL: No acute abnormality of the visualized skull or soft tissues. IMPRESSION: No acute intracranial abnormality. Paranasal sinus inflammatory disease Interpreted by: Joby Holt MD Signed by: Joby Holt MD 10/23/22 Final result Normal [facility] CT Head W/O Contraston 10-23 No acute intracrania l abnormality. Paranasal sinus inflammatory disease [facility] RIS CONSOLIDATED EXAMINATION: CT OF THE HEAD WITHOUT CONTRAST 10/23/2022 9:24 am TECHNIQUE: CT of the head was performed without the administration of intravenous contrast. Automated exposure control, iterative reconstruction, and/or weight based adjustment of the mA/kV was utilized to reduce the radiation dose to as low as reasonably achievable. COMPARISON: None. HISTORY: ORDERING SYSTEM PROVIDED HISTORY: headache x 2 days TECHNOLOGIST PROVIDED HISTORY: headache x 2 days Decision Support Exception - unselect if not a suspected or confirmed emergency medical condition->Emergency Medical Condition (MA) Is the patient ?->No FINDINGS: BRAIN/VENTRICLES: There is no acute intracranial hemorrhage, mass effect or midline shift. No abnormal extra-axial fluid collection. The sanderson-white differentiation is maintained without evidence of an acute infarct. There is no evidence of hydrocephalus. ORBITS: The visualized portion of the orbits demonstrate no acute abnormality. SINUSES: There is mild frontal and patchy ethmoid sinus mucosal thickening SOFT TISSUES/SKULL: No acute abnormality of the visualized skull or soft tissues. [facility] Joby La M D - 10/23/2022 EXAMINATION: CT OF THE HEAD WITHOUT CONTRAST 10/23/2022 9:24 am TECHNIQUE: CT of the head was performed without the administration of intravenous contrast. Automated exposure control, iterative reconstruction, and/or weight based adjustment of the mA/kV was utilized to reduce the radiation dose to as low as reasonably achievable. COMPARISON: None. HISTORY: ORDERING SYSTEM PROVIDED HISTORY: headache x 2 days TECHNOLOGIST PROVIDED HISTORY: headache x 2 days Decision Support Exception - unselect if not a suspected or confirmed emergency medical condition->Emergency Medical Condition (MA) Is the patient ?->No FINDINGS: BRAIN/VENTRICLES: There is no acute intracranial hemorrhage, mass effect or midline shift. No abnormal extra-axial fluid collection. The sanderson-white differentiation is maintained without evidence of an acute infarct. There is no evidence of hydrocephalus. ORBITS: The visualized portion of the orbits demonstrate no acute abnormality. SINUSES: There is mild frontal and patchy ethmoid sinus mucosal thickening SOFT TISSUES/SKULL: No acute abnormality of the visualized skull or soft tissues. IMPRESSION: No acute intracranial abnormality. Paranasal sinus inflammatory disease [facility] [employer] Phone: Radiology Study observation (narrative) [employer] Phone: CT Head W/O ContrastOrdered By: Joby Holt on 10-23-2022 [facility] [employer] Phone: Flu A/B Ag Detectionon 10-23 Flu A Ag Detection Negative Normal NEG [facility] Comment on above: Result Comment: for Influenza A Antigen Performed By: #### R CAMBERING MACHINE OPERATOR #### [facility] [address] [place] [address] Feed Handler: Enrique Ortega MD [facility] [address] [place] [address] [place] [id number] Feed Handler: Taran De Los Santos MD Flu B Ag Detection Negative Normal NEG [facility] Comment on above: Result Comment: for Influenza B Antigen. Performed By: #### R CAMBERING MACHINE OPERATOR #### [facility] [address] [place] [address] Feed Handler: Enrique Ortega MD [facility] [address] [place] [address] [place] [address] Feed Handler: Taran De Los Santos MD Immature Platelet Fractionon 10-23-2022 Interpretation and review of laboratory results Abnormal [facility] Platelet, Fluorescence 128 Low [facility] Platelets reticulated/100 platelets Auto (Bld) 5.2 % 1.1 - 10.3 % [facility] Mononucleosis Screenon 10-23 Mononucleosis Screen Negative Normal NEG [facility] Comment on above: Performed By: #### M CHERYL #### [facility] [address] [place] [address] [place] [id number] Feed Handler: Taran De Los Santos MD Heterophile Ab IA Ql (Bld) Negative NEGATIVE [facility] No Panel Informationon 10-23 Interpretation and review of laboratory results Abnormal [facility] PLT, Immature Fract.on 10-23 Platelet, Fluoresc. 128 k/uL Low 138-453 [facility] Comment on above: Performed By: #### C DP, IPF, SED, BMP, CRP #### [facility] [address] [place] [address] Dr. [place], [place] [id number] Feed Handler: Taran De Los Santos MD PLT, Immature Fract. 5.2 % Normal 1.1-10.3 [facility] Comment on above: Performed By: #### C DP, IPF, SED, BMP, CRP #### [facility] [address] [place] [address] [place] [address] Feed Handler: Taran De Los Santos MD Rapid influenza A/B antigens on 10-23-2022 FLUAV Ag Ql (Unsp spec) Negative NEGATIVE [facility] Comment on above: for Influenza A Anti gen FLUBV Ag Ql (Unsp spec) Negative NEGATIVE [facility] Comment on above: for Influenza B Anti gen. [facility] Resp Viral Panelon 3 Source: .NASOPHARYNGEAL SWAB Normal [facility] Comment on above: Performed By: #### R CAMBERING MACHINE OPERATOR #### [address] [address] Feed Handler: Enrique Ortega MD [address] [place] [address] Feed Handler: Taran De Los Santos MD [id number] 10-23-2022 SARS-CoV-2 (COVID-19) RNA AMPARO+probe Ql (Unsp spec) Not detected Normal NOTDET [facility] Comment on above: Result Comment: Rapid NAAT: The specimen is NEGATIVE for SARS-CoV-2, the novel coronavirus associated with COVID-19. The ID NOW COVID-19 assay is designed to detect the virus that causes COVID-19 in patients with signs and symptoms of infection who are suspected of COVID-19. An individual without symptoms of COVID-19 and who is not shedding SARS-CoV-2 virus would expect to have a negative (not detected) result in this assay. Negative results should be treated as presumptive and, if inconsistent with clinical signs and symptoms or necessary for patient management, should be tested with an alternative molecular assay. Negative results do not preclude SARS-CoV-2 infection and should not be used as the sole basis for patient management decisions. Fact sheet for Healthcare Providers: https://www.fda.gov/media/941110/download Fact sheet for Patients: https://www.fda.gov/media/384442/download Methodology: Isothermal Nucleic Acid Amplification Performed By: #### C OVRB #### [facility] [address] [place] [address] Feed Handler: Taran De Los Santos MD Sedimentation Rateon 023 Sedimentation Rate 11 mm/Hr Normal 0-20 [facility] Comment on above: Performed By: #### C DP, IPF, SED, BMP, CRP #### [facility] [address] [place] [address] Feed Handler: Taran De Los Santos MD ESR (Bld) [Velocity] 11 mm/h [facility] XR CHEST PORTABLEon 10-24-19 23 XR CHEST PORTABLE EXAMINATION: ONE XRAY VIEW OF THE CHEST 10/23/2022 9:30 am COMPARISON: Two-view chest from 08/15/2011 HISTORY: ORDERING SYSTEM PROVIDED HISTORY: cough TECHNOLOGIST PROVIDED HISTORY: cough FINDINGS: Somewhat low lung volumes; no acute focal pulmonary process. There is no effusion or pneumothorax. Possible mild bronchial wall thickening, better seen on the left. The cardiomediastinal silhouette is without acute process. The osseous structures are without acute process. Mild DJD spine. IMPRESSION: No acute process. Possible mild bronchitis. Interpreted by: Damian Keys MD Signed by: Damian Keys MD 10/23/22 Final result Normal [facility] No acute process. Possible mild bronchitis. [facility] RIS CONSOLIDATED EXAMINATION: ONE XRAY VIEW OF THE CHEST 10/23/2022 9:30 am COMPARISON: Two-view chest from 08/15/2011 HISTORY: ORDERING SYSTEM PROVIDED HISTORY: cough TECHNOLOGIST PROVIDED HISTORY: cough FINDINGS: Somewhat low lung volumes; no acute focal pulmonary process. There is no effusion or pneumothorax. Possible mild bronchial wall thickening, better seen on the left. The cardiomediastinal silhouette is without acute process. The osseous structures are without acute process. Mild DJD spine. [facility] RIS CONSOLIDATED Damian Keys MD - 10/23/2022 EXAMINATION: ONE XRAY VIEW OF THE CHEST 10/23/2022 9:30 am COMPARISON: Two-view chest from 08/15/2011 HISTORY: ORDERING SYSTEM PROVIDED HISTORY: cough TECHNOLOGIST PROVIDED HISTORY: cough FINDINGS: Somewhat low lung volumes; no acute focal pulmonary process. There is no effusion or pneumothorax. Possible mild bronchial wall thickening, better seen on the left. The cardiomediastinal silhouette is without acute process. The osseous structures are without acute process. Mild DJD spine. IMPRESSION: No acute process. Possible mild bronchitis. [facility] [employer] Work Phone: Radiology Study observation (narrative) [facility] [employer] Phone: XR CHEST PORTABLEOrdered By: Damian Keys on 10-23-2022 [facility] [employer] Work Phone: COVID-19, Rapidon 10-22-2022 SARS-CoV-2 (COVID-19) RdRp gene AMPARO+probe Ql (Resp) Not detected Not Detected [facility] Comment on above: Rapid NAAT: The specimen is NEGATIVE for SARS-CoV-2, the novel coronavirus associated with COVID-19. The ID NOW COVID-19 assay is designed to detect the virus that causes COVID-19 in patients with signs and symptoms of infection who are suspected of COVID-19. An individual without symptoms of COVID-19 and who is not shedding SARS-CoV-2 virus would expect to have a negative (not detected) result in this assay. Negative results should be treated as presumptive and, if inconsistent with clinical signs and symptoms or necessary for patient management, should be tested with an alternative molecular assay. Negative results do not preclude SARS-CoV-2 infection and should not be used as the sole basis for patient management decisions. Fact sheet for Healthcare Providers: https://www.fda.gov/media/522080/download Fact sheet for Patients: https://www.fda.gov/media/787056/download Methodology: Isothermal Nucleic Acid Amplification Specimen Description .NASOPHARYNGEAL SWAB [facility] [id number] 10-22-2022 SARS-CoV-2 (COVID-19) RNA AMPARO+probe Ql (Unsp spec) Not detected Normal [facility] Comment on above: Result Comment: Rapid NAAT: The specimen is NEGATIVE for SARS-CoV-2, the novel coronavirus associated with COVID-19. The ID NOW COVID-19 assay is designed to detect the virus that causes COVID-19 in patients with signs and symptoms of infection who are suspected of COVID-19. An individual without symptoms of COVID-19 and who is not shedding SARS-CoV-2 virus would expect to have a negative (not detected) result in this assay. Negative results should be treated as presumptive and, if inconsistent with clinical signs and symptoms or necessary for patient management, should be tested with an alternative molecular assay. Negative results do not preclude SARS-CoV-2 infection and should not be used as the sole basis for patient management decisions. Fact sheet for Healthcare Providers: https://www.fda.gov/media/094305/download Fact sheet for Patients: https://www.fda.gov/media/761867/download Methodology: Isothermal Nucleic Acid Amplification Performed By: #### C OVRB #### [facility] [address] [place] [address] [place] [address] Feed Handler: Taran De Los Santos MD GROUP A STREP CULTUREon 06-26 S. pyogenes Ag Ql (Unsp spec) Culture Observations: NEGATIVE FOR GROUP A STREPTOCOCCUS. Normal [facility] Comment on above: Performed By: #### C BC #### [facility] [address] [address] [address] Sofia Payne STREPT SCREENon 07-19-2022 STREP SCREEN A Negative Normal NEGATIVE [facility] Comment on above: Performed By: #### C BC #### [facility] [address] [address] [address] Sofia Payne [facility]25 SARS-CoV-2 (COVID-19) RNA AMPARO+probe Ql (Unsp spec) Not detected Normal NOT DETECTED [facility] Comment on above: Result Comment: This test is not yet approved or cleared by the [place] FDA. When there are no FDA-approved or cleared tests available, and other criteria are met, FDA can make tests available under an emergency access mechanism called an Emergency Use Authorization (EUA). The EUA for this test is supported by the [place] of Health and Human Service's (HHS's) declaration that circumstances exist to justify the emergency use of in vitro diagnostics for the detection and/or diagnosis of the virus that causes COVID-19. This EUA will remain in effect (meaning this test can be used) for the duration of the COVID-19 declaration justifying emergency of IVDs, unless it is terminated or revoked by FDA (after which the test may no longer be used). When diagnostic testing is negative, the possibility of a false negative should be considered in the context of a patient's recent exposures and the presence of clinical signs and symptoms consistent with SARS-CoV-2. Performed By: #### C BC #### [facility] [address] [place] [address] Dr. Sofia Payne INFLUENZA A AND B AGon 05-20 [facility] SEE BELOW Normal [facility] Comment on above: Result Comment: Nega tive for Flu A protein angiten. Infection due to Flu A cannot be ruled out. Flu A angiten in the sample may be below the detection limit of the test. Performed By: #### C BC #### [facility] [address] [place] [address] Dr. Sofia Payne INFLUBNEG SEE BELOW Normal [facility] Comment on above: Result Comment: Nega tive for Flu B protein antigen. Infection due to Flu B cannot be ruled out. Flu B antigen in the sample may be below the detection limit of the test. Performed By: #### C BC #### [facility] [address] [place] [address] Dr. Sofia Payne INFLUENZA A AG Negative Normal NEGATIVE SEE COMMENT [facility] Comment on above: Performed By: #### C BC #### [facility] [address] [place] [address] Dr. Sofia Payne INFLUENZA B AG Negative Normal NEGATIVE SEE COMMENT [facility] Comment on above: Performed By: #### C BC #### [facility] [address] [place] [address] Dr. Sofia Payne INTERNAL CONTROLS Within Normal Limits Normal Wi thin Normal Limits [facility] Comment on above: Performed By: #### C BC #### [facility] [address] [place] [address] Dr. Sofia Payne CBC AUTO DIFFon 05-01-2022 BASO # 0.0 103/ul Normal 0.0-0.1 [facility] Comment on above: Performed By: #### C BC #### [facility] [address] [place] [address] Dr. Sofia Payne Basophils/100 WBC (Bld) 0.4 % Normal 0.2-2.0 [facility] Comment on above: Performed By: #### C BC #### [facility] [address] [place] [address] Dr. Sofia Payne EO # 0.2 103/ul Normal 0.0-0.7 [facility] Comment on above: Performed By: #### C BC #### [facility] [address] [place] [address] Dr. Sofia Payne Eosinophils/100 WBC (Bld) 1.6 % Normal 0.9-7.0 [facility] Comment on above: Performed By: #### C BC #### [facility] [address] [place] [address] Dr. Sofia Payne Erythrocyte distribution width (RBC) [Ratio] 12.8 % Normal 11.0-15.0 [facility] Comment on above: Performed By: #### C BC #### [facility] [address] [place] [address] Dr. Sofia Payne Hematocrit (Bld) [Volume fraction] 41.9 % Normal 36.0-48.0 [facility] Comment on above: Performed By: #### C BC #### [facility] [address] [place] [address] Dr. Sofia Payne Hemoglobin (Bld) [Mass/Vol] 14.6 g/dL Normal 12.0-16.0 [facility] Comment on above: Performed By: #### C BC #### [facility] [address] [place] [address] Dr. Sofia Payne IG # 0.02 10e3/ul Normal 0.00-0.03 [facility] Comment on above: Performed By: #### C BC #### [facility] [address] [place] [address] Dr. Sofia Payne IG % 0.2 % Normal 0.0-0.5 [facility] Comment on above: Performed By: #### C BC #### [facility] [address] [address] [address] Sofia Payne LYMPH # 1.3 103/ul Normal 1.2-3.8 [facility] Comment on above: Performed By: #### C BC #### [facility] [address] [address] [address] Sofia Payne Lymphocytes/100 WBC (Bld) 13.8 % Critically low 20.5-60.0 [facility] Comment on above: Performed By: #### C BC #### [facility] [address] [place] [address] Dr. Sofia Payne MANUAL DIFF REQ NO Normal [facility] Comment on above: Performed By: #### C BC #### [facility] [address] [place] [address] Dr. Sofia Payne MCH (RBC) [Entitic mass] 30.3 pg Normal 26.7-34.0 [facility] Comment on above: Performed By: #### C BC #### [facility] [address] [place] [address] Dr. Sofia Payne MCHC (RBC) [Mass/Vol] 34.8 g/dL Normal 29.9-35.2 [facility] Comment on above: Performed By: #### C BC #### [facility] [address] [place] [address] Dr. Sofia Payne MCV (RBC) [Entitic vol] 86.9 fL Normal 81.0-99.0 [facility] Comment on above: Performed By: #### C BC #### [facility] [address] [place] [address] Dr. Sofia Payne MONO # 0.7 103/ul Normal 0.3-0.8 [facility] Comment on above: Performed By: #### C BC #### [facility] [address] [place] [address] Dr. Sofia Payne Monocytes/100 WBC (Bld) 7.8 % Normal 1.7-12.0 [facility] Comment on above: Performed By: #### C BC #### [facility] [address] [address] [address] Sofia Payne NEUT # 7.2 103/ul Critically high 1.4-6.[address] [facility] Comment on above: Performed By: #### C BC #### [facility] [address] [place] [address] Dr. Sofia Payne Neutrophils/100 WBC (Bld) 76.2 % Critically high 43.0-75.0 [facility] Comment on above: Performed By: #### C BC #### [facility] [address] [place] [address] Dr. Sofia Payne Platelet mean volume (Bld) [Entitic vol] 11.3 fL Normal 9.5-13.5 [facility] Comment on above: Performed By: #### C BC #### [facility] [address] [place] [address] Dr. Sofia Payne PLT 166 103/ul Normal 150-450 [facility] Comment on above: Performed By: #### C BC #### [facility] [address] [place] [address] Dr. Sofia Payne RBC 4.82 106/ul Normal 4.20-5.40 [facility] Comment on above: Performed By: #### C BC #### [facility] [address] [place] [address] Dr. Sofia Payne WBC 9.4 103/ul Normal 4.0-11.0 [facility] Comment on above: Performed By: #### C BC #### [facility] [address] [place] [address] Dr. Sofia Payne [facility] SARS-CoV-2 (COVID-19) RNA AMPARO+probe Ql (Unsp spec) Not detected Normal NOT DETECTED [facility] Comment on above: Result Comment: When diagnostic testing is negative, the possibility of a false negative should be considered in the context of a patient's recent exposures and the presence of clinical signs and symptoms consistent with SARS-CoV-2. This test is not yet approved or cleared by the [place] FDA. When there are no FDA-approved or cleared tests available, and other criteria are met, FDA can make tests available under an emergency access mechanism called an Emergency Use Authorization (EUA). The EUA for this test is supported by the [employer] of Health and Human Service's declaration that circumstances exist to justify the emergency use of in vitro diagnostics for the detection and/or diagnosis of the virus that causes COVID-19. This EUA will remain in effect for the duration of the COVID-19 declaration justifying emergency of IVDs, unless it is terminated or revoked by the FDA (after which the test may no longer be used). Performed By: #### C VDTBH #### [facility] [address] [place] [address] Dr. Sofia Payne ER URINE PROFILEon 2 Bilirubin Ql (U) SMALL Abnormal NEGATIVE [facility] Comment on above: Performed By: #### C BC #### [facility] [address] [place] [address] Dr. Sofia Payne Clarity (U) CLEAR Normal CLEAR [facility] Comment on above: Performed By: #### C BC #### [facility] [address] [place] [address] Dr. Sofia Payne Color (U) YELLOW Normal YELLOW [facility] Comment on above: Performed By: #### C BC #### [facility] [address] [place] [address] Dr. Sofia Payne ERUD A micrscopic examination will be performed if indicated. Normal [facility] Comment on above: Performed By: #### C BC #### [facility] [address] [place] [address] Dr. Sofia Payne Glucose Ql (U) Negative Normal NEGATIVE [facility] Comment on above: Performed By: #### C BC #### [facility] [address] [place] [address] Dr. Sofia Payne Hemoglobin Ql (U) Negative Normal NEGATIVE [facility] Comment on above: Performed By: #### C BC #### [facility] [address] [place] [address] Dr. Sofia Payne Ketones Ql (U) 15 mg/dl Abnormal NEGATIVE [facility] Comment on above: Performed By: #### C BC #### [facility] [address] [place] [address] Dr. Sofia Payne LEUKOCYTES TRACE Abnormal NEGATIVE [facility] Comment on above: Performed By: #### C BC #### [facility] [address] [place] [address] Dr. Sofia Payne Nitrite Ql (U) Negative Normal NEGATIVE [facility] Comment on above: Performed By: #### C BC #### [facility] [address] [place] [address] Dr. Sofia Payne pH (U) 5.5 [pH] Normal 5-9 [facility] Comment on above: Performed By: #### C BC #### [facility] [address] [place] [address] Dr. Sofia Payne SPEC GRAVITY >=1.030 Abnormal 1.005-<=1.[address] [facility] Comment on above: Performed By: #### C BC #### [facility] [address] [place] [address] Dr. Sofia Payne UA PROTEIN Negative Normal NEGATIVE/ TRACE [facility] Comment on above: Performed By: #### C BC #### [facility] [address] [place] [address] Dr. Sofia Payne UR MICRO IND INDICATED Normal [facility] Comment on above: Performed By: #### C BC #### [facility] [address] [place] [address] Dr. Sofia Payne Urobilinogen Qn (U) 0.2 {Kristopher'U}/dL Normal 0.2 - 1. 0 [facility] Comment on above: Performed By: #### C BC #### [facility] [address] [place] [address] Dr. Sofia Payne INFLUENZA A AND B AGon 05-01 INFLUANEGH SEE BELOW Normal [facility] Comment on above: Result Comment: Nega tive for Flu A protein angiten. Infection due to Flu A cannot be ruled out. Flu A angiten in the sample may be below the detection limit of the test. Performed By: #### C BC #### [facility] [address] [place] [address] Dr. Sofia Payne [facility] SEE BELOW Normal [facility] Comment on above: Result Comment: Nega tive for Flu B protein antigen. Infection due to Flu B cannot be ruled out. Flu B antigen in the sample may be below the detection limit of the test. Performed By: #### C BC #### [facility] [address] [place] [address] Dr. Sofia Payne INFLUENZA A AG Negative Normal NEGATIVE SEE COMMENT [facility] Comment on above: Performed By: #### C BC #### [facility] [address] [place] [address] Dr. Sofia Payne INFLUENZA B AG Negative Normal NEGATIVE SEE COMMENT [facility] Comment on above: Performed By: #### C BC #### [facility] [address] [place] [address] Dr. Sofia Payne INTERNAL CONTROLS Within Normal Limits Normal Wi thin Normal Limits [facility] Comment on above: Performed By: #### C BC #### [facility] [address] [place] [address] Dr. Sofia Payne URon 05-01-2022 , QUAL Negative Normal NEGATIVE [facility] Comment on above: Performed By: #### C BC #### [facility] [address] [place] [address] Dr. Sofia Payne PROF CHEM 8 (BAS METB)on Anion gap [Moles/Vol] 8.7 mmol/L Normal [facility] Comment on above: Performed By: #### C BC #### [facility] [address] [place] [address] Dr. Sofia Payne Calcium [Mass/Vol] 8.5 mg/dL Normal 8.5-10.1 [facility] Comment on above: Performed By: #### C BC #### [facility] [address] [place] [address] Dr. Sofia Payne Chloride [Moles/Vol] 103 mmol/L Normal 98-107 [facility] Comment on above: Performed By: #### C BC #### [facility] [address] [address] [address] Sofia Payne CO2 [Moles/Vol] 27.7 mmol/L Normal 21.0-32.0 [facility] Comment on above: Performed By: #### C BC #### [facility] [address] [address] [address] Sofia Payne Creatinine [Mass/Vol] 0.80 mg/dL Normal 0.55-1.02 [facility] Comment on above: Performed By: #### C BC #### [facility] [address] [address] [address] Sofia Payne EGFR-AF BERMUDIAN >60 Normal >=60 [facility] Comment on above: Performed By: #### C BC #### [facility] [address] [address] [address] Sofia Payne EGFR-NON AF BERMUDIAN >60 Normal >=60 [facility] Comment on above: Performed By: #### C BC #### [facility] [address] [address] [address] Sofia Payne Glucose [Mass/Vol] 89 mg/dL Normal 74-106 [facility] Comment on above: Performed By: #### C BC #### [facility] [address] [address] [address] Sofia Payne Potassium [Moles/Vol] 3.9 mmol/L Normal 3.5-5.1 [facility] Comment on above: Performed By: #### C BC #### [facility] [address] [address] [address] Sofia Payne Sodium [Moles/Vol] 136 mmol/L Normal 136-145 [facility] Comment on above: Performed By: #### C BC #### [facility] [address] [place] [address] Dr. Sofia Payne Urea nitrogen [Mass/Vol] 8.0 mg/dL Normal 7.0-18.0 [facility] Comment on above: Performed By: #### C BC #### [facility] [address] [place] [address] Dr. Sofia Payne Urea nitrogen/Creatinine [Mass ratio] 10.0 mg/mg Normal [facility] Comment on above: Performed By: #### C BC #### [facility] [address] [place] [address] Dr. Sofia Payne URINE MICROSCOPIC ONLYon BACTERIA NONE SEEN Normal NONE SEEN [facility] Comment on above: Performed By: #### C BC #### [facility] [address] [place] [address] Dr. Sofia Payne Bacteria identified Cx Nom (U) NOT INDICATED Normal [facility] Comment on above: Performed By: #### C BC #### [facility] [address] [place] [address] Dr. Sofia Payne CAST NONE SEEN Normal NONE SEEN [facility] Comment on above: Performed By: #### C BC #### [facility] [address] [place] [address] Dr. Sofia Payne Crystals LM Nom (Urine sed) NONE SEEN Normal NONE SEEN [facility] Comment on above: Performed By: #### C BC #### [facility] [address] [place] [address] Dr. Sofia Payne Epithelial cells LM Ql (Urine sed) MANY Abnormal NONE SEEN /RARE [facility] Comment on above: Performed By: #### C BC #### [facility] [address] [place] [address] Dr. Sofia Payne MUCOUS TRACE Abnormal NONE SEEN [facility] Comment on above: Performed By: #### C BC #### [facility] [address] [place] [address] Dr. Sofia Payne RBC NONE SEEN Abnormal 0-2 [facility] Comment on above: Performed By: #### C BC #### [facility] [address] [place] [address] Dr. Sofia Payne WBC 2-5 Abnormal NONE SEEN [facility] Comment on above: Performed By: #### C BC #### [facility] [address] [place] [address] Dr. Sofia Payne NEFTALI by IFAon 04-25-2022 Antinuclear Antibodies, IFA Negative Normal [facility] Comment on above: Result Comment: Nega tive <1:80 Borderline 1:80 Positive >1:80 ICAP nomenclature: AC-0 For more information about Hep-2 cell patterns use ANApatterns.org, the official website for the International Consensus on Antinuclear Antibody (NEFTALI) Patterns (ICAP). Performed By: #### C BC #### [facility] [address] [place] [address] Dr. Sofia Payne ANTISTREPTOLYSIN O AB (ASO)o n 04-24-2022 Antistreptolysin O Ab 65.9 IU/mL Normal 0.0-200.0 [facility] Comment on above: Performed By: #### C BC #### [facility] [address] [place] [address] Dr. Sofia Payne RHEUMATOID FACTORon 04-24-20 RA Latex Turbid. <10.0 Normal <14.0 [facility] Comment on above: Performed By: #### C BC #### [facility] [address] [place] [address] Dr. Sofia Payne CBC AUTO DIFFon 04-23-2022 BASO # 0.0 103/ul Normal 0.0-0.1 [facility] Comment on above: Performed By: #### C BC #### [facility] [address] [place] [address] Dr. Sofia Payne Basophils/100 WBC (Bld) 0.7 % Normal 0.2-2.0 [facility] Comment on above: Performed By: #### C BC #### [facility] [address] [place] [address] Dr. Sofia Payne EO # 0.1 103/ul Normal 0.0-0.7 [facility] Comment on above: Performed By: #### C BC #### [facility] [address] [place] [address] Dr. Sofia Payne Eosinophils/100 WBC (Bld) 3.3 % Normal 0.9-7.0 [facility] Comment on above: Performed By: #### C BC #### [facility] [address] [place] [address] Dr. Sofia Payne Erythrocyte distribution width (RBC) [Ratio] 12.5 % Normal 11.0-15.0 [facility] Comment on above: Performed By: #### C BC #### [facility] [address] [place] [address] Dr. Sofia Payne Hematocrit (Bld) [Volume fraction] 40.9 % Normal 36.0-48.0 [facility] Comment on above: Performed By: #### C BC #### [facility] [address] [place] [address] Dr. Sofia Payne Hemoglobin (Bld) [Mass/Vol] 14.4 g/dL Normal 12.0-16.0 [facility] Comment on above: Performed By: #### C BC #### [facility] [address] [place] [address] Dr. Sofia Payne IG # 0.01 10e3/ul Normal 0.00-0.03 [facility] Comment on above: Performed By: #### C BC #### [facility] [address] [place] [address] Dr. Sofia Payne IG % 0.2 % Normal 0.0-0.5 [facility] Comment on above: Performed By: #### C BC #### [facility] [address] [place] [address] Dr. Sofia Payne LYMPH # 1.6 103/ul Normal 1.2-3.8 [facility] Comment on above: Performed By: #### C BC #### [facility] [address] [place] [address] Dr. Sofia Payne Lymphocytes/100 WBC (Bld) 36.3 % Normal 20.5-60.0 [facility] Comment on above: Performed By: #### C BC #### [facility] [address] [place] [address] Dr. Sofia Payne MANUAL DIFF REQ NO Normal [facility] Comment on above: Performed By: #### C BC #### [facility] [address] [place] [address] Dr. Sofai Payne MCH (RBC) [Entitic mass] 30.2 pg Normal 26.7-34.0 [facility] Comment on above: Performed By: #### C BC #### [facility] [address] [address] [address] Sofia Payne MCHC (RBC) [Mass/Vol] 35.2 g/dL Normal 29.9-35.2 [facility] Comment on above: Performed By: #### C BC #### [facility] [address] [address] [address] Sofia Payne MCV (RBC) [Entitic vol] 85.7 fL Normal 81.0-99.0 [facility] Comment on above: Performed By: #### C BC #### [facility] [address] [place] [address] Dr. Sofia Payne MONO # 0.3 103/ul Normal 0.3-0.8 [facility] Comment on above: Performed By: #### C BC #### [facility] [address] [place] [address] Dr. Sofia Payne Monocytes/100 WBC (Bld) 8.0 % Normal 1.7-12.0 [facility] Comment on above: Performed By: #### C BC #### [facility] [address] [place] [address] Dr. Sofia Payne NEUT # 2.2 103/ul Normal 1.4-6.5 [facility] Comment on above: Performed By: #### C BC #### [facility] [address] [place] [address] Dr. Sofia Payne Neutrophils/100 WBC (Bld) 51.5 % Normal 43.0-75.0 [facility] Comment on above: Performed By: #### C BC #### [facility] [address] [address] [address] Sofia Payne Platelet mean volume (Bld) [Entitic vol] 11.5 fL Normal 9.5-13.5 [facility] Comment on above: Performed By: #### C BC #### [facility] [address] [address] [address] Sofia Payne PLT 121 103/ul Critically low 150-450 [facility] Comment on above: Performed By: #### C BC #### [facility] [address] [place] [address] Dr. Sofia Payne RBC 4.77 106/ul Normal 4.20-5.40 [facility] Comment on above: Performed By: #### C BC #### [facility] [address] [place] [address] Dr. Sofia Payne WBC 4.3 103/ul Normal 4.0-11.0 [facility] Comment on above: Performed By: #### C BC #### [facility] [address] [place] [address] Dr. Sofia Payne CRPon 04-23-2022 CRP [Mass/Vol] mg/L Normal <=1.0 [facility] Comment on above: Performed By: #### C RP, CMP, TSH, URIC #### [facility] [address] [place] [address] Dr. Sofia Payne FREE T4on 04-23-2022 Free T4 [Mass/Vol] 1.01 ng/dL Normal 0.76-1.46 [facility] Comment on above: Performed By: #### F T4 #### [facility] [address] [place] [address] Dr. Sofia Payne PROF 14(COMP METB)on 022 Albumin [Mass/Vol] 3.7 g/dL Normal 3.4-5.0 [facility] Comment on above: Performed By: #### C RP, CMP, TSH, URIC #### [facility] [address] [place] [address] Dr. Sofia Payne Albumin/Globulin [Mass ratio] 1.1 {ratio} Normal [facility] Comment on above: Performed By: #### C RP, CMP, TSH, URIC #### [facility] [address] [place] [address] Dr. Sofia Payne ALP [Catalytic activity/Vol] 94 U/L Normal 46-116 [facility] Comment on above: Performed By: #### C RP, CMP, TSH, URIC #### [facility] [address] [address] [address] Sofia Payne ALT [Catalytic activity/Vol] 14 U/L Normal 14-59 [facility] Comment on above: Performed By: #### C RP, CMP, TSH, URIC #### [facility] [address] [address] [address] Sofia Payne Anion gap [Moles/Vol] 13.5 mmol/L Normal [facility] Comment on above: Performed By: #### C RP, CMP, TSH, URIC #### [facility] [address] [place] [address] Dr. Sofia Payne AST [Catalytic activity/Vol] 18 U/L Normal 15-37 [facility] Comment on above: Performed By: #### C RP, CMP, TSH, URIC #### [facility] [address] [place] [address] Dr. Sofia Payne Bilirubin [Mass/Vol] 0.3 mg/dL Normal 0.2-1.0 [facility] Comment on above: Performed By: #### C RP, CMP, TSH, URIC #### [facility] [address] [place] [address] Dr. Sofia Payne Calcium [Mass/Vol] 8.5 mg/dL Normal 8.5-10.1 [facility] Comment on above: Performed By: #### C RP, CMP, TSH, URIC #### [facility] [address] [address] [address] Sofia Payne Chloride [Moles/Vol] 104 mmol/L Normal 98-107 [facility] Comment on above: Performed By: #### C RP, CMP, TSH, URIC #### [facility] [address] [place] [address] Dr. Sofia Payne CO2 [Moles/Vol] 23.7 mmol/L Normal 21.0-32.0 [facility] Comment on above: Performed By: #### C RP, CMP, TSH, URIC #### [facility] [address] [place] [address] Dr. Sofia Payne Creatinine [Mass/Vol] 0.61 mg/dL Normal 0.55-1.02 [facility] Comment on above: Performed By: #### C RP, CMP, TSH, URIC #### [facility] [address] [address] [address] Sofia Payne EGFR-AF BERMUDIAN >60 Normal >=60 [facility] Comment on above: Performed By: #### C RP, CMP, TSH, URIC #### [facility] [address] [address] [address] Sofia Payne EGFR-NON AF BERMUDIAN >60 Normal >=60 [facility] Comment on above: Performed By: #### C RP, CMP, TSH, URIC #### [facility] [address] [place] [address] Dr. Sofia Payne Globulin (S) [Mass/Vol] 3.5 g/dL Normal [facility] Comment on above: Performed By: #### C RP, CMP, TSH, URIC #### [facility] [address] [place] [address] Dr. Sofia Payne Glucose [Mass/Vol] 86 mg/dL Normal 74-106 [facility] Comment on above: Performed By: #### C RP, CMP, TSH, URIC #### [facility] [address] [place] [address] Dr. Sofia Payne Potassium [Moles/Vol] 4.1 mmol/L Normal 3.5-5.1 [facility] Comment on above: Performed By: #### C RP, CMP, TSH, URIC #### [facility] [address] [address] [address] Sofia Payne Protein [Mass/Vol] 7.2 g/dL Normal 6.4-8.2 [facility] Comment on above: Performed By: #### C RP, CMP, TSH, URIC #### [facility] [address] [address] [address] Sofia Payne Sodium [Moles/Vol] 137 mmol/L Normal 136-145 [facility] Comment on above: Performed By: #### C RP, CMP, TSH, URIC #### [facility] [address] [place] [address] Dr. Sofia Payne Urea nitrogen [Mass/Vol] 6.0 mg/dL Critically low 7.0-18.0 [facility] Comment on above: Performed By: #### C RP, CMP, TSH, URIC #### [facility] [address] [place] [address] Dr. Sofia Payne Urea nitrogen/Creatinine [Mass ratio] 9.8 mg/mg Normal [facility] Comment on above: Performed By: #### C RP, CMP, TSH, URIC #### [facility] [address] [place] [address] Dr. Sofia Payne SED RATE WESTERGRENon 2021 SED RATE 10 mm/hr Normal <=20 [facility] Comment on above: Performed By: #### C BC #### [facility] [address] [place] [address] Dr. Sofia Payne TSHon 04-23-2022 TSH 2.555 uIU/mL Normal 0.358-3.740 [facility] Comment on above: Performed By: #### C RP, CMP, TSH, URIC #### [facility] [address] [place] [address] Dr. Sofia Payne URIC ACID SERUMon 04-23-2022 Urate [Mass/Vol] 4.2 mg/dL Normal 2.6-6.0 [facility] Comment on above: Performed By: #### C RP, CMP, TSH, URIC #### [facility] [address] [place] [address] Dr. Sofia Payne CBC AUTO DIFFon 12-30-2021 BASO # 0.0 103/ul Normal 0.0-0.1 [facility] Comment on above: Performed By: #### C BC #### [facility] [address] [place] [address] Dr. Sofia Payne Basophils/100 WBC (Bld) 0.5 % Normal 0.2-2.0 [facility] Comment on above: Performed By: #### C BC #### [facility] [address] [place] [address] Dr. Sofia Payne EO # 0.1 103/ul Normal 0.0-0.7 [facility] Comment on above: Performed By: #### C BC #### [facility] [address] [place] [address] Dr. Sofia Payne Eosinophils/100 WBC (Bld) 3.1 % Normal 0.9-7.0 [facility] Comment on above: Performed By: #### C BC #### [facility] [address] [place] [address] Dr. Sofia Payne Erythrocyte distribution width (RBC) [Ratio] 13.1 % Normal 11.0-15.0 [facility] Comment on above: Performed By: #### C BC #### [facility] [address] [place] [address] Dr. Sofia Payne Hematocrit (Bld) [Volume fraction] 43.4 % Normal 36.0-48.0 [facility] Comment on above: Performed By: #### C BC #### [facility] [address] [place] [address] Dr. Sofia Payne Hemoglobin (Bld) [Mass/Vol] 14.8 g/dL Normal 12.0-16.0 [facility] Comment on above: Performed By: #### C BC #### [facility] [address] [place] [address] Dr. Sofia Payne IG # 0.01 10e3/ul Normal 0.00-0.03 [facility] Comment on above: Performed By: #### C BC #### [facility] [address] [place] [address] Dr. Sofia Payne IG % 0.3 % Normal 0.0-0.5 [facility] Comment on above: Performed By: #### C BC #### [facility] [address] [place] [address] Dr. Sofia Payne LYMPH # 1.6 103/ul Normal 1.2-3.8 [facility] Comment on above: Performed By: #### C BC #### [facility] [address] [place] [address] Dr. Sofia Payne Lymphocytes/100 WBC (Bld) 41.2 % Normal 20.5-60.0 [facility] Comment on above: Performed By: #### C BC #### [facility] [address] [place] [address] Dr. Sofia Payne MANUAL DIFF REQ NO Normal [facility] Comment on above: Performed By: #### C BC #### [facility] [address] [place] [address] Dr. Soifa Payne MCH (RBC) [Entitic mass] 30.0 pg Normal 26.7-34.0 [facility] Comment on above: Performed By: #### C BC #### [facility] [address] [place] [address] Dr. Sofia Payne MCHC (RBC) [Mass/Vol] 34.1 g/dL Normal 29.9-35.2 [facility] Comment on above: Performed By: #### C BC #### [facility] [address] [place] [address] Dr. Sofia Payne MCV (RBC) [Entitic vol] 88.0 fL Normal 81.0-99.0 [facility] Comment on above: Performed By: #### C BC #### [facility] [address] [place] [address] Dr. Sofia Payne MONO # 0.4 103/ul Normal 0.3-0.8 [facility] Comment on above: Performed By: #### C BC #### [facility] [address] [place] [address] Dr. Sofia Payne Monocytes/100 WBC (Bld) 9.8 % Normal 1.7-12.0 [facility] Comment on above: Performed By: #### C BC #### [facility] [address] [place] [address] Dr. Sofia Payne NEUT # 1.8 103/ul Normal 1.4-6.5 [facility] Comment on above: Performed By: #### C BC #### [facility] [address] [place] [address] Dr. Sofia Payne Neutrophils/100 WBC (Bld) 45.1 % Normal 43.0-75.0 [facility] Comment on above: Performed By: #### C BC #### [facility] [address] [place] [address] Dr. Sofia Payne Platelet mean volume (Bld) [Entitic vol] 11.9 fL Normal 9.5-13.5 [facility] Comment on above: Performed By: #### C BC #### [facility] [address] [place] [address] Dr. Sofai Payne PLT 142 103/ul Critically low 150-450 [facility] Comment on above: Performed By: #### C BC #### [facility] [address] [place] [address] Dr. Sofia Payne RBC 4.93 106/ul Normal 4.20-5.40 [facility] Comment on above: Performed By: #### C BC #### [facility] [address] [place] [address] Dr. Sofia Payne WBC 3.9 103/ul Critically low 4.0-11.0 [facility] Comment on above: Performed By: #### C BC #### [facility] [address] [place] [address] Dr. Sofia Payne CULTURE URINEon 12-30-2021 CULTURE URINE Culture Observations : HEAVY GROWTH OF MIXED GENITAL SHARAN. NO POTENTIAL PATHOGENS SEEN. Normal [facility] Comment on above: Performed By: #### C BC #### [facility] [address] [place] [address] Dr. Sofia Payne FREE T4on 12-30-2021 Free T4 [Mass/Vol] 0.98 ng/dL Normal 0.76-1.46 [facility] Comment on above: Performed By: #### C BC #### [facility] [address] [place] [address] Dr. Sofia Payne MONOon 12-30-2021 Monocytes (Bld) [#/Vol] Positive Abnormal NEGATIVE [facility] Comment on above: Result Comment: Prev iously reported as: NEGATIVE On 12/30/2021 19:06 By JAW Performed By: #### M CHERYL #### [facility] [address] [address] [address] Sofia Payne PROF 14(COMP METB)on 022 Albumin [Mass/Vol] 4.1 g/dL Normal 3.4-5.0 [facility] Comment on above: Performed By: #### C BC #### [facility] [address] [place] [address] Dr. Sofia Payne Albumin/Globulin [Mass ratio] 1.2 {ratio} Normal [facility] Comment on above: Performed By: #### C BC #### [facility] [address] [place] [address] Dr. Sofia Payne ALP [Catalytic activity/Vol] 103 U/L Normal 46-116 [facility] Comment on above: Performed By: #### C BC #### [facility] [address] [place] [address] Dr. Sofia Payne ALT [Catalytic activity/Vol] 88 U/L Critically high 14-59 [facility] Comment on above: Performed By: #### C BC #### [facility] [address] [place] [address] Dr. Sofia Payne Anion gap [Moles/Vol] 14.0 mmol/L Normal [facility] Comment on above: Performed By: #### C BC #### [facility] [address] [place] [address] Dr. Sofia Payne AST [Catalytic activity/Vol] 24 U/L Normal 15-37 [facility] Comment on above: Performed By: #### C BC #### [facility] [address] [place] [address] Dr. Sofia Payne Bilirubin [Mass/Vol] 0.3 mg/dL Normal 0.2-1.0 [facility] Comment on above: Performed By: #### C BC #### [facility] [address] [place] [address] Dr. Sofia Payne Calcium [Mass/Vol] 9.2 mg/dL Normal 8.5-10.1 [facility] Comment on above: Performed By: #### C BC #### [facility] [address] [place] [address] Dr. Sofia Payne Chloride [Moles/Vol] 105 mmol/L Normal 98-107 [facility] Comment on above: Performed By: #### C BC #### [facility] [address] [address] [address] Sofia Payne CO2 [Moles/Vol] 25.4 mmol/L Normal 21.0-32.0 [facility] Comment on above: Performed By: #### C BC #### [facility] [address] [place] [address] Dr. Sofia Payne Creatinine [Mass/Vol] 0.74 mg/dL Normal 0.55-1.02 [facility] Comment on above: Performed By: #### C BC #### [facility] [address] [place] [address] Dr. Sofia Payne EGFR-AF BERMUDIAN >60 Normal >=60 [facility] Comment on above: Performed By: #### C BC #### [facility] [address] [place] [address] Dr. Sofia Payne EGFR-NON AF BERMUDIAN >60 Normal >=60 [facility] Comment on above: Performed By: #### C BC #### [facility] [address] [place] [address] Dr. Sofia Payne Globulin (S) [Mass/Vol] 3.3 g/dL Normal [facility] Comment on above: Performed By: #### C BC #### [facility] [address] [place] [address] Dr. Sofia Payne Glucose [Mass/Vol] 96 mg/dL Normal 74-106 [facility] Comment on above: Performed By: #### C BC #### [facility] [address] [place] [address] Dr. Sofia Payne Potassium [Moles/Vol] 4.4 mmol/L Normal 3.5-5.1 [facility] Comment on above: Performed By: #### C BC #### [facility] [address] [place] [address] Dr. Sofia Payne Protein [Mass/Vol] 7.4 g/dL Normal 6.4-8.2 [facility] Comment on above: Performed By: #### C BC #### [facility] [address] [place] [address] Dr. Sofia Payne Sodium [Moles/Vol] 140 mmol/L Normal 136-145 [facility] Comment on above: Performed By: #### C BC #### [facility] [address] [place] [address] Dr. Sofia Payne Urea nitrogen [Mass/Vol] 10.0 mg/dL Normal 7.0-18.0 [facility] Comment on above: Performed By: #### C BC #### [facility] [address] [place] [address] Dr. Sofia Payne Urea nitrogen/Creatinine [Mass ratio] 13.5 mg/mg Normal [facility] Comment on above: Performed By: #### C BC #### [facility] [address] [place] [address] Dr. Sofia Payne TSHon 12-30-2021 TSH 1.676 uIU/mL Normal 0.358-3.740 [facility] Comment on above: Performed By: #### C BC #### [facility] [address] [place] [address] Dr. Sofia Payne UA RANDOM W/MICROSCOPICon AMORPHOUS CRYSTALS FEW Normal [facility] Comment on above: Performed By: #### C BC #### [facility] [address] [place] [address] Dr. Sofia Payne BACTERIA MODERATE Abnormal NONE SEEN [facility] Comment on above: Performed By: #### C BC #### [facility] [address] [place] [address] Dr. Sofia Payne Bilirubin Ql (U) Negative Normal NEGATIVE [facility] Comment on above: Performed By: #### C BC #### [facility] [address] [place] [address] Dr. Sofia Payne CAST NONE SEEN Normal NONE SEEN [facility] Comment on above: Performed By: #### C BC #### [facility] [address] [address] [address] Sofia Payne Clarity (U) SL CLOUDY Abnormal CLEAR [facility] Comment on above: Performed By: #### C BC #### [facility] [address] [place] [address] Dr. Sofia Payne Color (U) YELLOW Normal YELLOW [facility] Comment on above: Performed By: #### C BC #### [facility] [address] [address] [address] Sofia Payne Crystals LM Nom (Urine sed) SEEN Abnormal NONE SEEN [facility] Comment on above: Performed By: #### C BC #### [facility] [address] [place] [address] Dr. Sofia Payne Epithelial cells LM Ql (Urine sed) FEW Abnormal NONE SEEN /RARE [facility] Comment on above: Performed By: #### C BC #### [facility] [address] [place] [address] Dr. Sofia Payne Glucose Ql (U) Negative Normal NEGATIVE [facility] Comment on above: Performed By: #### C BC #### [facility] [address] [place] [address] Dr. Sofia Payne Hemoglobin Ql (U) MODERATE Abnormal NEGATIVE [facility] Comment on above: Performed By: #### C BC #### [facility] [address] [place] [address] Dr. Sofia Payne Ketones Ql (U) Negative Normal NEGATIVE [facility] Comment on above: Performed By: #### C BC #### [facility] [address] [place] [address] Dr. Sofia Payne LEUKOCYTES SMALL Abnormal NEGATIVE [facility] Comment on above: Performed By: #### C BC #### [facility] [address] [place] [address] Dr. Sofia Payne MUCOUS NONE SEEN Normal NONE SEEN [facility] Comment on above: Performed By: #### C BC #### [facility] [address] [place] [address] Dr. Sofia Payne Nitrite Ql (U) Negative Normal NEGATIVE [facility] Comment on above: Performed By: #### C BC #### [facility] [address] [place] [address] Dr. Sofia Payne pH (U) 6.0 [pH] Normal 5-9 [facility] Comment on above: Performed By: #### C BC #### [facility] [address] [place] [address] Dr. Sofia Payne RBC 10-20 Abnormal 0-2 [facility] Comment on above: Performed By: #### C BC #### [facility] [address] [place] [address] Dr. Sofia Payne SPEC GRAVITY >=1.030 Abnormal 1.005-<=1.[address] [facility] Comment on above: Performed By: #### C BC #### [facility] [address] [place] [address] Dr. Sofia Payne UA PROTEIN Negative Normal NEGATIVE/ TRACE [facility] Comment on above: Performed By: #### C BC #### [facility] [address] [place] [address] Dr. Sofia Payne Urobilinogen Qn (U) 0.2 {Kristopher'U}/dL Normal 0.2 - 1. 0 [facility] Comment on above: Performed By: #### C BC #### [facility] [address] [place] [address] Dr. Sofia Payne WBC 5-10 Abnormal NONE SEEN [facility] Comment on above: Performed By: #### C BC #### [facility] [address] [place] [address] Dr. Sofia Payne CBC W MANUAL DIFFon 12-25-19 22 ATYPICAL LYMPH # Normal [facility] Comment on above: Performed By: #### C BC #### [facility] [address] [place] [address] Dr. Sofia Payne ATYPICAL LYMPH % Normal [facility] Comment on above: Performed By: #### C BC #### [facility] [address] [place] [address] Dr. Sofia Payne BAND # 0.1 103/ul Normal 0.0-0.3 [facility] Comment on above: Performed By: #### C BC #### [facility] [address] [place] [address] Dr. Sofia Payne BAND % 2 % Normal 0-5 [facility] Comment on above: Performed By: #### C BC #### [facility] [address] [place] [address] Dr. Sofia Payne BASOM # 0.00 103/ul Normal 0.00-0.10 [facility] Comment on above: Performed By: #### C BC #### [facility] [address] [place] [address] Dr. Sofia Payne BASOM % 0.0 % Critically low 0.2-2.0 [facility] Comment on above: Performed By: #### C BC #### [facility] [address] [place] [address] Dr. Sofia Payne BLAST # Normal [facility] Comment on above: Performed By: #### C BC #### [facility] [address] [place] [address] Dr. Sofia Payne BLAST % Normal [facility] Comment on above: Performed By: #### C BC #### [facility] [address] [place] [address] Dr. Sofia Payne CORRECTED WBC Normal 4.0-11.0 [facility] Comment on above: Performed By: #### C BC #### [facility] [address] [place] [address] Dr. Sofia Payne EOS # 0.00 103/ul Normal 0.00-0.70 [facility] Comment on above: Performed By: #### C BC #### [facility] [address] [place] [address] Dr. Sofia Payne EOS% 0.0 % Critically low 0.9-7.0 [facility] Comment on above: Performed By: #### C BC #### [facility] [address] [place] [address] Dr. Sofia Payne HCT 40.9 % Normal 36.0-48.0 [facility] Comment on above: Performed By: #### C BC #### [facility] [address] [address] [address] Sofia Payne HGB 13.8 g/dl Normal 12.0-16.0 [facility] Comment on above: Performed By: #### C BC #### [facility] [address] [place] [address] Dr. Sofia Payne LYMPHM # 0.43 103/ul Critically low 1.20-3.[address] [facility] Comment on above: Performed By: #### C BC #### [facility] [address] [place] [address] Dr. Sofia Payne LYMPHM% 15.0 % Critically low 20.5-60.0 [facility] Comment on above: Performed By: #### C BC #### [facility] [address] [place] [address] Dr. Sofia Payne MCH 30.4 pg Normal 26.7-34.0 [facility] Comment on above: Performed By: #### C BC #### [facility] [address] [place] [address] Dr. Sofia Payne MCHC 33.7 g/dl Normal 29.9-35.2 [facility] Comment on above: Performed By: #### C BC #### [facility] [address] [place] [address] Dr. Sofia Payne MCV 90.1 fL Normal 81.0-99.0 [facility] Comment on above: Performed By: #### C BC #### [facility] [address] [place] [address] Dr. Sofia Payne METAMYELOCYTE # Normal [facility] Comment on above: Performed By: #### C BC #### [facility] [address] [place] [address] Dr. Sofia Payne METAMYELOCYTE % Normal [facility] Comment on above: Performed By: #### C BC #### [facility] [address] [place] [address] Dr. Sofia Payne MONOM# 0.41 103/ul Normal 0.30-0.80 [facility] Comment on above: Performed By: #### C BC #### [facility] [address] [address] [address] Sofia Payne MONOM% 14.0 % Critically high 1.7-12.[address] [facility] Comment on above: Performed By: #### C BC #### [facility] [address] [address] [address] Sofia Payne MPV 11.0 fL Normal 9.5-13.5 [facility] Comment on above: Performed By: #### C BC #### [place] [facility] [address] [place] [address] Dr. Sofia Payne MYELOCYTE # Normal [facility] Comment on above: Performed By: #### C BC #### [facility] [address] [place] [address] Dr. Sofia Payne MYELOCYTE % Normal [facility] Comment on above: Performed By: #### C BC #### [facility] [address] [place] [address] Dr. Sofia Payne NRBC Normal [facility] Comment on above: Performed By: #### C BC #### [facility] [address] [place] [address] Dr. Sofia Payne PLT 98 103/ul Critically low 150-450 [facility] Comment on above: Performed By: #### C BC #### [facility] [address] [place] [address] Dr. Sofia Payne RBC 4.54 106/ul Normal 4.20-5.40 [facility] Comment on above: Performed By: #### C BC #### [facility] [address] [place] [address] Dr. Sofia Payne RDW 13.1 % Normal 11.0-15.0 [facility] Comment on above: Performed By: #### C BC #### [facility] [address] [place] [address] Dr. Sofia Payne SEG # 2.00 103/ul Normal 1.40-6.50 [facility] Comment on above: Performed By: #### C BC #### [facility] [address], [place] [address] Dr. Sofia Payne SEG % 69.0 % Normal 43.0-75.0 [facility] Comment on above: Performed By: #### C BC #### [facility] [address] [place], [place] [address] Dr. Sofia Payne WBC 2.9 103/ul Critically low 4.0-11.0 [facility] Comment on above: Performed By: #### C BC #### [facility] [address], [place] [address] ABD/PELVIS WO CONon 12-24 CT ABD/PELVIS WO CON EXAMINATION: CT ABD/PELVIS WO CON HISTORY: Left sided abdominal pain , acute body aches, headache, fever COMPARISON: CT abdomen pelvis 05/14/2011 TECHNIQUE: Axial, Coronal, and Sagittal images were created without IV contrast. Dose reduction techniques were achieved by using automated exposure control and/or adjustment of mA and/or kV according to patient size and/or use of iterative reconstruction technique. FINDINGS: LUNG BASES: No visible pulmonary or pleural disease. LIVER: No enlargement, atrophy, suspicious density, or significant focal lesion. BILIARY: No dilatation or calcification. PANCREAS: No lesion, fluid collection, or abnormal duct dilatation. SPLEEN: No enlargement or focal lesion. ADRENALS: No mass or enlargement. KIDNEYS: No mass, obstruction, or calcification. BOWEL/MESENTERY: No visible mass, obstruction, or bowel wall thickening. Normal appendix. AORTA/VASCULAR: No aneurysm or dissection. RETROPERITONEUM: No mass or adenopathy. LYMPH NODES: No adenopathy. URINARY BLADDER: No visible focal wall thickening, lesion, or calculus. PELVIC ORGANS: Small cysts within the ovaries. Pelvic organs appropriate for patient age. ABDOMINAL WALL: No mass or hernia. BONES: No bony lesion or fracture. OTHER: Negative. IMPRESSION: 1. No abnormal or suspicious findings to account for patient's symptoms. Electronically authenticated by: EMMANUEL ROMAN Date: 2021-12-24 12:09 Normal [facility] CULTURE URINEon 12-24-2021 CULTURE URINE Culture Observations : NO GROWTH. Normal [facility] Comment on above: Performed By: #### C BC #### [facility] [address] [place] [address] Dr. Sofia Payne ER URINE PROFILEon 2 Bilirubin Ql (U) SMALL Abnormal NEGATIVE [facility] Comment on above: Performed By: #### C BC #### [facility] [address] [place] [address] Dr. Sofia Payne Clarity (U) SL CLOUDY Abnormal CLEAR [facility] Comment on above: Performed By: #### C BC #### [facility] [address] [place] [address] Dr. Sofia Payne Color (U) DK. ORANGE Abnormal YELLOW [facility] Comment on above: Performed By: #### C BC #### [facility] [address] [place] [address] Dr. Sofia DIAS A micrscopic examination will be performed if indicated. Normal [facility] Comment on above: Performed By: #### C BC #### [facility] [address] [place] [address] Dr. Sofia Payne Glucose Ql (U) Negative Normal NEGATIVE [facility] Comment on above: Performed By: #### C BC #### [facility] [address] [place] [address] Dr. Sofai Payne Hemoglobin Ql (U) LARGE Abnormal NEGATIVE [facility] Comment on above: Performed By: #### C BC #### [facility] [address] [place] [address] Dr. Sofia Payen Ketones Ql (U) 40 mg/dl Abnormal NEGATIVE [facility] Comment on above: Performed By: #### C BC #### [facility] [address] [place] [address] Dr. Sofia Payne LEUKOCYTES Negative Normal NEGATIVE [facility] Comment on above: Performed By: #### C BC #### [facility] [address] [place] [address] Dr. Sofia Payne Nitrite Ql (U) Negative Normal NEGATIVE [facility] Comment on above: Performed By: #### C BC #### [facility] [address] [place] [address] Dr. Sofia Payne pH (U) 5.5 [pH] Normal 5-9 [facility] Comment on above: Performed By: #### C BC #### [facility] [address] [place] [address] Dr. Sofia Payne Protein (U) [Mass/Vol] 100 mg/dL Abnormal NEGATIVE/ TRACE [facility] Comment on above: Performed By: #### C BC #### [facility] [address] [place] [address] Dr. Sofia Payne SPEC GRAVITY >=1.030 Abnormal 1.005-<=1.[address] [facility] Comment on above: Performed By: #### C BC #### [facility] [address] [place] [address] Dr. Sofia Payne UR MICRO IND INDICATED Normal [facility] Comment on above: Performed By: #### C BC #### [facility] [address] [place] [address] Dr. Sofia Payne Urobilinogen Qn (U) 1.0 {Kristopher'U}/dL Normal 0.2 - 1. 0 [facility] Comment on above: Performed By: #### C BC #### [facility] [address] [place] [address] Dr. Sofia Payne PROF 14(COMP METB)on 022 Albumin [Mass/Vol] 3.8 g/dL Normal 3.4-5.0 [facility] Comment on above: Performed By: #### C BC #### [facility] [address] [place] [address] Dr. Sofia Payne Albumin/Globulin [Mass ratio] 1.2 {ratio} Normal [facility] Comment on above: Performed By: #### C BC #### [facility] [address] [place] [address] Dr. Sofia Payne ALP [Catalytic activity/Vol] 78 U/L Normal 46-116 [facility] Comment on above: Performed By: #### C BC #### [facility] [address] [place] [address] Dr. Sofia Payne ALT [Catalytic activity/Vol] 9 U/L Critically low 14-59 [facility] Comment on above: Performed By: #### C BC #### [facility] [address] [place] [address] [address] Sofia Payne Anion gap [Moles/Vol] 13.4 mmol/L Normal [facility] Comment on above: Performed By: #### C BC #### [facility] [address] [place] [address] [address] Sofia Payne AST [Catalytic activity/Vol] 13 U/L Critically low 15-37 [facility] Comment on above: Performed By: #### C BC #### [facility] [address] [place] [address] [address] Sofia Payne Bilirubin [Mass/Vol] 0.2 mg/dL Normal 0.2-1.0 [facility] Comment on above: Performed By: #### C BC #### [facility] [address] [place] [address] [address] Sofia Payne Calcium [Mass/Vol] 8.2 mg/dL Critically low 8.5-10.1 [facility] Comment on above: Performed By: #### C BC #### [facility] [address] [place] [address] Dr. Sofia Payne Chloride [Moles/Vol] 106 mmol/L Normal 98-107 [facility] Comment on above: Performed By: #### C BC #### [facility] [address] [place] [address] [address] Sofia Payne CO2 [Moles/Vol] 24.9 mmol/L Normal 21.0-32.0 [facility] Comment on above: Performed By: #### C BC #### [facility] [address] [place] [address] [address] Sofia Payne Creatinine [Mass/Vol] 0.93 mg/dL Normal 0.55-1.02 [facility] Comment on above: Performed By: #### C BC #### [facility] [address] [place] [address] [address] Sofia Payne EGFR-AF BERMUDIAN >60 Normal >=60 [facility] Comment on above: Performed By: #### C BC #### [facility] [address] [place] [address] [address] Sofia Payne EGFR-NON AF BERMUDIAN >60 Normal >=60 [facility] Comment on above: Performed By: #### C BC #### [facility] [address] [place] [address] [address] Sofia Payne Globulin (S) [Mass/Vol] 3.3 g/dL Normal [facility] Comment on above: Performed By: #### C BC #### [facility] [address] [place] [address] [address] Sofia Payne Glucose [Mass/Vol] 94 mg/dL Normal 74-106 [facility] Comment on above: Performed By: #### C BC #### [facility] [address] [place] [address] [address] Sofia Payne Potassium [Moles/Vol] 4.3 mmol/L Normal 3.5-5.1 [facility] Comment on above: Performed By: #### C BC #### [facility] [address] [place] [address] [address] Sofia Payne Protein [Mass/Vol] 7.1 g/dL Normal 6.4-8.2 [facility] Comment on above: Performed By: #### C BC #### [facility] [address] [place] [address] [address] Sofia Payne Sodium [Moles/Vol] 140 mmol/L Normal 136-145 [facility] Comment on above: Performed By: #### C BC #### [facility] [address] [place] [address] [address] Sofia Payne Urea nitrogen [Mass/Vol] 7.0 mg/dL Normal 7.0-18.0 [facility] Comment on above: Performed By: #### C BC #### [facility] [address] [place] [address] [address] Sofia Payne Urea nitrogen/Creatinine [Mass ratio] 7.5 mg/mg Normal [facility] Comment on above: Performed By: #### C BC #### [facility] [address] [place] [address] Dr. Sofia Payne URINE MICROSCOPIC ONLYon BACTERIA SMALL Abnormal NONE SEEN [facility] Comment on above: Performed By: #### C BC #### [facility] [address] [place] [address] Dr. Sofia Payne Bacteria identified Cx Nom (U) INDICATED Normal [facility] Comment on above: Performed By: #### C BC #### [facility] [address] [place] [address] Dr. Sofia Payne CAST NONE SEEN Normal NONE SEEN [facility] Comment on above: Performed By: #### C BC #### [facility] [address] [place] [address] Dr. Sofia Payne Crystals LM Nom (Urine sed) NONE SEEN Normal NONE SEEN [facility] Comment on above: Performed By: #### C BC #### [facility] [address] [place] [address] Dr. Sofia Payne Epithelial cells LM Ql (Urine sed) FEW Abnormal NONE SEEN /RARE [facility] Comment on above: Performed By: #### C BC #### [facility] [address] [place] [address] Dr. Sofia Payne MUCOUS NONE SEEN Normal NONE SEEN [facility] Comment on above: Performed By: #### C BC #### [facility] [address] [place] [address] Dr. Sofia Payne RBC (U) [#/Vol] /uL Abnormal 0-2 [facility] Comment on above: Performed By: #### C BC #### [facility] [address] [place] [address] Dr. Sofia Payne WBC 2-5 Abnormal NONE SEEN [facility] Comment on above: Performed By: #### C BC #### [facility] [address] [place] [address] Dr. Sofia Payne Covid-19 PCR (CVDTB)on SARS-CoV-2 (COVID-19) RNA AMPARO+probe Ql (Unsp spec) Not detected Normal NOT DETECTED [facility] Comment on above: Result Comment: This test is not yet approved or cleared by the [place] FDA. When there are no FDA-approved or cleared tests available, and other criteria are met, FDA can make tests available under an emergency access mechanism called an Emergency Use Authorization (EUA). The EUA for this test is supported by the [place] of Health and Human Service's (HHS's) declaration that circumstances exist to justify the emergency use of in vitro diagnostics for the detection and/or diagnosis of the virus that causes COVID-19. This EUA will remain in effect (meaning this test can be used) for the duration of the COVID-19 declaration justifying emergency of IVDs, unless it is terminated or revoked by FDA (after which the test may no longer be used). When diagnostic testing is negative, the possibility of a false negative should be considered in the context of a patient's recent exposures and the presence of clinical signs and symptoms consistent with SARS-CoV-2. Performed By: #### C BC #### [facility] [address] [place] [address] Dr. Sofia Payne COVID/FLU/RSV RT-PCRon 12-22 SARS-CoV-2 (COVID-19) RNA AMPARO+probe Ql (Unsp spec) Negative [facility] Other COVID/FLU/RSV RT-PCR Negative [facility] [employer] Other COVID/FLU/RSV RT-PCR [facility] [employer]) Other Mononucleosis Test, [facility] 0 12-22-2021 Heterophile Ab LA Ql (S) Negative [facility] Other COVID Quick Testingon 2021 Result Negative [facility] Other Quick Strepon 06-04-2021 S. pyogenes Org specific cx Ql (Throat) Negative 5by Other Quick Strep 5by Other RAD - Ultrasound Reporton RAD - Ultrasound Report [id number] .00CD:127 [facility] ED Note-Physicianon 02-22-20 20 ED Note-Physician [id number]# 1.00CD:127 [facility] ED Note-Physician [id number]# 1.00CD:127 [facility] ED Note-Physician [id number]# 1.00CD:127 [facility] Physician Referralon 020 Physician Referral [id number]. 00CD:127 [facility] Provider Letteron 02-15-2020 Provider Letter February 15, 2020 [address]AR [address] [place] [id number] LINA ALCANTAR 1990 Dear Lina Alcantar, You missed your scheduled appointment on: 02/15/2020 and the purpose of this letter is to inform you of our *No Show Policy*. Our appointment slots fill rapidly and when we have a no show appointment that time is lost. We could have used that time slot to care for a patient who needed to see one of our providers. Therefore, we ask that you call 24 hours in advance to cancel your appointment. After your second no show within a twelve (12) month period, you will be assessed a $30 charge. This policy is in place so that we can meet the needs of all of our patients and we do appreciate your understanding. Sincerely, [facility] [address], [place] [address] [facility] Formson 02-03-2020 Forms [id number] .00CD:127 [facility] Ambulatory Clinical Summaryo n 02-01-2020 Ambulatory Clinical Summary {[id number]}CD:[id number] [facility] Patient Educationon 02-01-20 Patient Education Family Medicine Urinary Tract Infection Urinary tract infections (UTIs) can develop anywhere along your urinary tract. Your urinary tract is your body's drainage system for removing wastes and extra water. Your urinary tract includes two kidneys, two ureters, a bladder, and a urethra. Your kidneys are a pair of landeros-shaped organs. Each kidney is about the size of your fist. They are located below your ribs, one on each side of your spine. CAUSES Infections are caused by microbes, which are microscopic organisms, including fungi, viruses, and bacteria. These organisms are so small that they can only be seen through a microscope. Bacteria are the microbes that most commonly cause UTIs. SYMPTOMS Symptoms of UTIs may vary by age and gender of the patient and by the location of the infection. Symptoms in young women typically include a frequent and intense urge to urinate and a painful, burning feeling in the bladder or urethra during urination. Older women and men are more likely to be tired, shaky, and weak and have muscle aches and abdominal pain. A fever may mean the infection is in your kidneys. Other symptoms of a kidney infection include pain in your back or sides below the ribs, nausea, and vomiting. DIAGNOSIS To diagnose a UTI, your caregiver will ask you about your symptoms. Your caregiver also will ask to provide a urine sample. The urine sample will be tested for bacteria and white blood cells. White blood cells are made by your body to help fight infection. TREATMENT Typically, UTIs can be treated with medication. Because most UTIs are caused by a bacterial infection, they usually can be treated with the use of antibiotics. The choice of antibiotic and length of treatment depend on your symptoms and the type of bacteria causing your infection. HOME CARE INSTRUCTIONS ? If you were prescribed antibiotics, take them exactly as your caregiver instructs you. Finish the medication even if you feel better after you have only taken some of the medication. ? Drink enough water and fluids to keep your urine clear or pale yellow. ? Avoid caffeine, tea, and carbonated beverages. They tend to irritate your bladder. ? Empty your bladder often. Avoid holding urine for long periods of time. ? Empty your bladder before and after sexual intercourse. ? After a bowel movement, women should cleanse from front to back. Use each tissue only once. SEEK MEDICAL CARE IF: ? You have back pain. ? You develop a fever. ? Your symptoms do not begin to resolve within 3 days. SEEK IMMEDIATE MEDICAL CARE IF: ? You have severe back pain or lower abdominal pain. ? You develop chills. ? You have nausea or vomiting. ? You have continued burning or discomfort with urination. MAKE SURE YOU: ? Understand these instructions. ? Will watch your condition. ? Will get help right away if you are not doing well or get worse. Document Released: 02/18/2006 Document Revised: 11/09/2012 Document Reviewed: 06/18/2012 ExitCare? Patient Information ?2013 [employer]. 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 Bhagat. Pt states that since having her son 5 months ago and she has had 4. Last UTI was 01/14/20 and was at [facility]. This has been ongoing since she was younger. Pt did see Dr. Gooden in the past for UD. She states that she remember this helped. Pt has been going through infections her whole life. Pt states that just recently after having her baby is when it started bothering her back. PVR today 195ml, pt was unable to give a UA sample, she tried, she said she just dont feel the urge to void and onlt voids like2-3x a day. Dysuria: pt states that her urine is hotter than normal, but no pain or burning Incomplete bladder emptying: pt does not feel like she is emptying Hematuria: pt is bleeding due to starting control Frequency: 2-3x a day. Urgency: no urges Nocturia: no Stream: strain to start stream. Weak stream with intermittent stream. Post void dripping: none Urge incontinence: none Stress incontinence: none Incontinence without Sensory Awareness: none Abdominal pain: period cramps due to control back: pt states she is having lower back pain Sexual complaints: no History of Present Illness Reviewed UA, PVR, and LEGAL TRANSCRIBER paperwork. There have been no associated fever or chills. Pt. denies any pain/burning with urination at this time. Review of Systems PHQ Score Initial Depression Screen Score: 1 General: Fevers Denies, Weight Loss Denies, Weakness Denies Skin: Rash Denies, Non-healed Skin Wound Denies Blood: Bruising Denies, Bleeding Denies, Anemia Denies Eyes: Eye Problems Denies Ears: Recent Hearing Problems Denies Respiratory: Cough Denies, Coughing Blood Denies, [place] of Breath Denies, Respiratory Infections Denies, Loud Snoring Denies Cardiovascular: Chest Pain Denies, Sensation of Irregular Heart Beat Denies Intestinal: Constipation Denies, Diarrhea Denies, Rectal Bleeding/Blood in Stool Denies Hemorrhoids Denies, Indigestion Denies, Nausea Denies, Vomiting Denies Genito-Urinary: Have you ever seen blood in your urine Yes, Have you ever been told there was blood in your urine Denies, Vaginal Discharge Denies, Vaginal Bleeding Denies, Leaking Urine (incontinence) Denies, Flank or Kidney Pain Yes, Pain relating to your bladder filling or emptying Denies, Burning with Urination Denies, Urinary Tract Infection Yes Kidney Stone Denies, Sexual Difficulties Denies Muscle-Skeletal: Joint Pain Denies, Back Pain Denies, Muscle Cramps Denies Nervous System: Headaches Denies, Seizures Denies, Blackouts Denies, Numbness Denies Weakness in a certain area of your body Denies, Tingling in a certain area of your body Denies Psychological: Confusion Denies, Anxiety Denies Other Free Text: Physical Exam Vitals & Measurements HR: 67(Peripheral) RR: 18 BP: 97/73 HT: 163.0 cm HT: 163 cm WT: 73.0 kg WT: 73 kg BMI: 27.48 General Appearance: alert , no acute distress, well nourished, well developed female. Head: normocephalic . Eyes: normal orbit and globe. ENMT: normal examination of external ears. Chest: Lungs CTA, respirations non labored . Cardiovascular: regular rate and rhythm. Abdomen: soft, non distended, no tenderness, no mass or organomegaly, no hernia. Genitourinary: bladder nonpalpable, no flank tenderness. Lymph Nodes: unremarkable palpation of the cervical area. Skin: warm, dry, no bruising. Psychiatric: cooperative, affect appropriate for age, normal judgement, euthymic mood. Assessment/Plan 1. 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 Pt. states that she has had four infections within the last five months. Last infection was on 01/14/20. Pt. states that once she is off of an antibiotic, infection symptoms start to come back. Pt. states that his has been ongoing since she was younger. Pt. to start a low dose daily antibiotic. New script for Bactrim 400mg/80mg qd sent to [facility]. All questions/concerns were discussed. Pt. to call the office if sheencounters any issues prior. Pt. acknowledges understanding. 2. Flank pain (R10.9: Unspecified abdominal pain) Lower rt. side, ongoing for the past 5mos. Pt. to get a renal u/s. 3. Incomplete bladder emptying (R33.9: Retention of urine, unspecified) PVR prior to voiding - 195ml. PVR after voiding - 115ml. 5. Weak urine stream (R39.12: Poor urinary stream) Weak stream w/ intermittency and hesitancy. I have reviewed the previous health record information and history for this pt. from Dr. Villafuerte. 29 YO female with nonfebrile back pain initiated recurrent UTI's and a life long history of these UTI's with recurrence of symptoms on the day she stops antibiotics in the clinical setting of reporting a allergy to macrobid of both yeast infections and swelling. Get renal ultrasound. Encouraged Kegel exercises, consider pelvic floor physical therapy. Pt inquiring about urethral dilation but did not report any local symptoms. I faovr this therapy for local symptoms. Pt is following with a obstitrician because she is 5 months post vaginal delivery which may explain her incomplete bladder emptying and pelvic and even back pain. Renal ultrasound is reasonable and given 2 positive urine cx's accompanying the patient and her verbal report of relief with antibiotics but immediate recurrance of her symptoms the day after stopping the antibiotics, I fvored a low daily dose but we also discussed cranberry pills. COnsider pelvic floor physical therapy if no response to abx regardless of culture results and period of observation to see if pyelo develops or not. Follow-up With When Contact Information Christo LUDWIG, Torres Warner [address] [place] [address]- [phone] Additional Instructions: Patient Education Urinary Tract Infection I, Dolly Duffy , personally scribed for Dr. Villafuerte on 02/01/2020 09:29:44. . Documentation recorded by the scribeDolly, accurately reflects the services(s) I performed and decisions made by me. Authenticated by Dr. Villafuerte on 02/01/2020 09:30:23. I corrected Dolly's mistakes with annotations. Problem List/Past Medical History Ongoing Flank pain Gross hematuria Incomplete bladder emptying Lupus Neurocardiogenic syncope Recurrent UTI Smoker Weak urine stream Historical No qualifying data Procedure/Surgical History Cholecystectomy, Tonsillectomy and adenoidectomy. Medications Bactrim 400 mg-80 mg Tab, 1 tab(s), Oral, Daily, 3 refills Diflucan 150 mg Tab, 150 mg= 1 tab(s), Oral, Daily, Not taking ketorolac 10 mg Tab, 10 mg= 1 tab(s), Oral, q8hr, PRN, Not taking phenazopyridine 200 mg Tab, 200 mg= 1 tab(s), Oral, TID, Not taking sulfamethoxazole-trim ethoprim 800 mg-160 mg Tab, 1 tab(s), Oral, BID, Not taking Zofran 4 mg Tab, 4 mg= 1 tab(s), Oral, q4hr, Not taking Allergies Macrobid (Unknown) Social History Tobacco 5-9 cigarettes (between 1/4 to 1/2 pack)/day in last 30 days Tobacco Use:. Yes, 02/01/2020 Smoker, current status unknown Tobacco Use:., 01/26/2020 Family History Ovarian cyst: Other Relationship. PCOS (polycystic ovarian syndrome): Other Relationship. Lab Results Ambulatory Point of Care Results Bilirubin Urine Dipstick: Negative (02/01/20 09:13:00) Blood Urine Dipstick: 2+ Moderate (02/01/20 09:13:00) Glucose Urine Dipstick: Negative (02/01/20 09:13:00) Ketones Urine Dipstick: Negative (02/01/20 09:13:00) Leukocytes Urine Dipstick: Negative (02/01/20 09:13:00) Nitrite Urine Dipstick: Negative (02/01/20 09:13:00) Protein Urine Dipstick: Negative (02/01/20 09:13:00) Specific [place] Urine Dipstick: 1.025 (02/01/20 09:13:00) Urine Color Urine Dipstick: Yellow (02/01/20 09:13:00) Urobilinogen Urine Dipstick: Normal 0.2-1 EU/dl (02/01/20 09:13:00) pH Urine Dipstick: 5.5 (02/01/20 09:13:00) Normal [facility] Comment on above: Result Comment: Elec tronically Signed By: Christo LUDWIG, Torres Warner\.br\Date and Time Signed: 02/01/20 09:52 EDT\.br\Electronically Co-Signed By: Dolly Duffy MA\.br\Date and Time Co-Signed: 02/01/20 09:29 EDT Vital Signs Date Time Vital Sign Value Performing Clinician Facility 10-23-2022 10:15-0400 Body temperature 99.5 [degF] Belen Spencer DO Work Phone: [facility] 10-23-2022 10:15-0400 Diastolic blood pressure 60 mm[Hg] Belen Spencer DO Work Phone: [employer] [facility] 10-23-2022 10:15-0400 Heart rate 94 /min Belen Spencer DO Work Phone: [facility] [employer] 10-23-2022 10:15-0400 Systolic blood pressure 114 mm[Hg] Belen Spencer DO Work Phone: [facility] [employer] 10-23-2022 08:48-0400 SaO2% (BldA) [Mass fraction] 98 % Belen Spencer DO Work Phone: [employer] 10-23-2022 08:27-0400 Body mass index (BMI) [Ratio] 32.61 kg/m2 Belen Spencer DO Work Phone: [facility] [employer] 10-23-2022 08:27-0400 Body weight 86.18 kg Belen Spencer DO Work Phone: [facility] [employer] 10-23-2022 08:27-0400 Respiratory rate 16 /min Belen Spencer DO Work Phone: [facility] [employer] 10-22-2022 09:47-0400 Diastolic blood pressure 70 mm[Hg] Denisse Ann MD Work Phone: [facility] [employer] 10-22-2022 09:47-0400 Systolic blood pressure 105 mm[Hg] Denisse Ann MD Work Phone: [facility] [employer] 10-22-2022 09:42-0400 Body height 162.6 cm Denisse Ann MD Work Phone: [facility] [employer] 10-22-2022 09:42-0400 Body mass index (BMI) [Ratio] 32.61 kg/m2 Denisse Ann MD Work Phone: [facility] [employer] 10-22-2022 09:42-0400 Body temperature 100.09 [degF] Denisse Ann MD Work Phone: [facility] [employer] 10-22-2022 09:42-0400 Body weight 86.18 kg Denisse Ann MD Work Phone: [employer] 10-22-2022 09:42-0400 Heart rate 97 /min Denisse Ann MD Work Phone: [facility] [employer] 10-22-2022 09:42-0400 Respiratory rate 18 /min Denisse Ann MD Work Phone: [facility] [employer] 10-22-2022 09:42-0400 SaO2% (BldA) [Mass fraction] 98 % Denisse Ann MD Work Phone: [facility] 12-22-2021 13:10-0400 Body height 162.56 cm Lissette Shin Other [facility] Other 12-22-2021 13:10-0400 Body temperature 101.2 [degF] Lissette Shin Other [facility] Other 12-22-2021 13:10-0400 Respiratory rate 18 /min Lissette Shin Other [facility] Other 12-22-2021 13:10-0400 SaO2% (BldA) [Mass fraction] 98 % Lissette Shin Other [facility] Other 06-04-2021 18:00-0500 Body height 162.56 cm Lissette Ginty Other [facility] Other 06-04-2021 18:00-0500 Body mass index (BMI) [Ratio] 30.89 kg/m2 Lissette Ginty Other [facility] Other 06-04-2021 18:00-0500 Body temperature 97.3 [degF] Lissette Ginty Other [facility] Other 06-04-2021 18:00-0500 Body weight 81.65 kg Lissette Ginty Other [facility] Other 06-04-2021 18:00-0500 Respiratory rate 18 /min Lissette Ginty Other [facility] Other 06-04-2021 18:00-0500 SaO2% (BldA) [Mass fraction] 98 % Lissette Ginty Other [facility] Other Encounters Encounter Date Encounter Type Care Provider Facility Start: 06-23-2023 End: 06-23-2023 ambulatory JOHN RAJPUT Not Available Start: 05-26-2023 End: 05-26-2023 Emergency department patient visit [facility] Start: 05-20-2023 End: 05-20-2023 ambulatory MERCY AICHHOLZ Not Available Start: 10-23-2022 End: 10-23-2022 Emergency department patient visit BELEN Merrill SPENCER [facility] Start: 10-23-2022 End: 10-23-2022 Emergency department patient visit Belen Spencer DO Work Phone: [facility] ED Comment on above: Viral syndrome (Prim waqas Dx); Migraine without aura and with status migrainosus, not intractable; Sinus congestion Start: 10-22-2022 End: 10-22-2022 Emergency department patient visit [facility] Start: 10-22-2022 End: 10-22-2022 Emergency department patient visit Denisse Ann MD Work Phone: [facility] ED Comment on above: Nonintractable heada audie, unspecified chronicity pattern, unspecified headache type (Primary Dx); Acute recurrent sinusitis, unspecified location Start: 07-19-2022 End: 07-19-2022 ambulatory ORE SMELTER [facility] Facility:[facility] Start: 05-20-2022 End: 05-20-2022 ambulatory ORE SMELTER [facility] Start: 05-01-2022 End: 05-01-2022 ambulatory ORE SMELTER [facility] Start: 04-23-2022 End: 04-24-2022 ambulatory ORE SMELTER [facility] Start: 02-08-2022 End: 02-08-2022 ambulatory ORE SMELTER [facility] Start: 12-31-2021 End: 12-31-2021 ambulatory ORE SMELTER [facility] Start: 12-30-2021 End: 12-31-2021 ambulatory ORE SMELTER [facility] Facility:[facility] Start: 12-24-2021 End: 12-24-2021 ambulatory CRISTINO GRIJALVA Facility:[facility]1 Start: 12-23-2021 End: 12-23-2021 ambulatory CRISTINO GRIJALVA Facility:[facility]1 Start: 12-22-2021 End: 12-22-2021 ambulatory Lissette Shin Other [facility] Other Start: 12-22-2021 Office outpatient vi sit 25 minutes Lissette Shin [facility] Start: 06-04-2021 End: 06-04-2021 ambulatory Lissette Ginty Other [facility] Other Start: 06-04-2021 Office outpatient vi sit 15 minutes Lissette Ginty [facility] Procedures Date Procedure Procedure Detail Performing Clinician Start: 10-23-2022 Radiologic exam ches t single view Belen J Spencer DO Work Phone: Start: 10-23-2022 Ct head/brain w/o contrast material Belen J Spencer DO Work Phone: Start: 10-23-2022 COVID-19, RAPID Belen J Spencer DO Work Phone: Start: 10-23-2022 Iaadiadoo influenza Noah eria J Spencer DO Work Phone: Start: 10-23-2022 Basic metabolic pane l calcium total Belen J Spencer DO Work Phone: Start: 10-23-2022 C-reactive protein Jave jimbo J Spencer DO Work Phone: Start: 10-23-2022 IMMATURE PLATELET FRACTION Belen J Spencer DO Work Phone: Start: 10-22-2022 COVID-19, RAPID Denisse Ann MD Work Phone: Plan of Treatment Date Care Activity Detail Author Start: 12-23-2022 Influenza vaccination Flu vacc ine (Season Ended) [facility] Start: 11-02-2021 Screening for malign ant neoplasm of cervix [facility] Start: 11-02-2012 Screening for malign ant neoplasm of cervix Pap smear [facility] Start: 11-02-2010 DTaP/Tdap/Td vaccine (1 - Tdap) DTaP/Tdap/Td vaccine (1 - Tdap) [facility] Start: 11-02-2009 Hepatitis C screening Hepatitis C sc reen [facility] Start: 11-02-2006 HIV screening HIV screen [facility] Start: 2003 Depression Screen Depression Screen [facility] Start: 11-02-1997 Pneumococcal 0-64 ye ars Vaccine (1 - PCV) Pneumococcal 0-64 years Vaccine (1 - PCV) [facility] Start: 11-02-1992 Varicella vaccine (1 of 2 - 2-dose childhood series) Varicella vaccine (1 of 2 - 2-dose childhood series) [facility] Start: 05-04-1992 COVID-19 Vaccine (#1) COVID-19 Vacci ne (#1) [facility] End: 10-23-2022 Respiratory Panel, Molecular, with COVID-19 (Restricted: peds pts or suitable admitted adults) [facility] Work Phone: Comment on above: One Time for 1 Occur rences starting 10/23/2022 until 10/23/2022 Payers Date Payer Category Payer Unknown [id number] 1991 Unknown [id number] 2.16.84 [id number] 1991 Unknown [id number] 2.16.84 [id number] 1991 Unknown [id number] 2.16.84 [id number] 1991 Unknown [id number] 2.16.84 [id number] 1991 Unknown [id number] 2.16.84 [id number] 1991 Unknown [id number] 2.16.84 [id number] 1991 Unknown [id number] 2.16.84 [id number] 1991 Unknown [id number] 2.16.84 [id number] 1991 Unknown [id number] 2.16.84 [id number] 1991 Unknown [id number] 2.16.8 [id number] 1991 Unknown [id number] 2.16.8 [id number] 1991 Unknown [id number] 2.16.8 [id number] 1991 Unknown [id number] 2.16.84 [id number] 1991 Unknown [id number] [id number] .[id number] 1958 Medicaid [id number] 1958 Unknown [id number] 2.1 [id number] Social History Date Type Detail Facility Unknown if ever smoked [facility] Other Sex Assigned At Sex Assigned At Bir th [facility] Other Start: 10-22-2022 [facility] [employer] Phone: History of tobacco use Cigarette Smoker [employer] Phone: Start: 10-22-2022 Tobacco use and exposure Smokeless tobacco non-user [employer] Phone: Start: 10-22-2022 End: 10-23-2022 History SDOH Alcohol Frequency 1 [facility] [employer] Phone: Start: 1990 Sex Assigned At Not on file [employer] Phone: Start: 10-23-2022 History SDOH Alcohol Std Drinks 0 [facility] [employer] Phone: Hospital Discharge instructions 10-23-2022 Discharge InstructionsAttachments Note Date & Type Note Facility 10-23-2022 [facility] Discharg e instructions Belen Spencer DO - 10/23/2022 10:09 AM EDT Continue taking your antibiotic that was given to yesterday. Tylenol and ibuprofen every 6-8 hours for fever. Drink plenty of fluids and get plenty of sleep. If your respiratory panel comes back positive for any findings we will give you a call. Otherwise have a close follow-up with your primary care doctor next week. Return if symptoms get worse. If you have any concerns or questions regarding your care today, please discuss with your nurse or physician prior to leaving the emergency department. Thank you for allowing us to take care of you at [facility]. In the next few days you may receive a survey by mail or e-mail asking about the care you received during this visit. Please complete this if you are able, as this feedback helps us provide the best care possible. The following attachments cannot be sent through Care Everywhere.Migraine Headache (Faroese)documented in this encounter [facility] [employer] Phone: Hospital Discharge instructions 10-22-2022 Discharge InstructionsAttachments Note Date & Type Note Facility 10-22-2022 [facility] Discharg e instructions Denisse Ann MD - 10/22/2022 11:37 AM EDT Continue current medications as prescribed. Take Augmentin as directed until complete. Make sure that you stay well-hydrated. Tylenol and or Motrin as needed for pain at home. Use Sunflower in place of Tylenol for pain not controlled with Tylenol. Follow-up with your primary care provider in 2 to 3 days if symptoms not resolved. You must return immediately should you develop any worsening symptom if your headache should become positional if you develop any neck pain sore throat chest pain shortness of breath weakness or any other acute concerns. The following attachments cannot be sent through Care Everywhere.Acute Sinusitis: Video (Faroese)Headache (Faroese)documented in this encounter [employer] Phone: Evaluation note 12-22-2021 Note Date & Type Note Facility 12-22-2021 Evaluation note Encounter Date Diagnosis Assessment Notes Nov, Fever (ICD-10 - R50.9) Nov, Viral URI (ICD-10 - J06.9) Advised patient that COVID/Influenza A/B PCR test was negative today. [place] test negative. Advised patient that will treat as viral URI. Supportive care as directed, increase fluids and rest, Tylenol/Motrin as directed, OTC cough/cold remedies as directed on packaging, cool mist humidifier, throat lozenges. Will send in rx of Albuterol Inhaler to use as needed. Discussed infection control practices such as good hand washing and mask wearing. Patient to follow up with PCP if symptoms persist or worsen despite treatment. Immediate eval for SOB, difficulty, chest pain, fevers that do not break with antipyretic or any other concerning symptoms as reviewed on patient education handout. Patient verbalizes understanding and is agreeable to treatment plan. Patient left in stable condition Nov, Cough (ICD-10 - R05.9) Nov, Fatigue, unspecified type (ICD-10 - R53.83) [facility] Other Evaluation note 06-04-2021 Note Date & Type Note Facility 06-04-2021 Evaluation note Encounter Date Diagnosis Assessment Notes May, Contact with and (suspected) exposure to other viral communicable diseases (ICD-10 - Z20.828) May, Acute effusion of both middle ears (ICD-10 - H65.193) Advised patient that rapid COVID antigen test and Strep test is negative. Discussed diagnosis with patient, explained to patient that there is middle ear fluid without signs of bacterial infection, antibiotics are not indicated at this time. This is commonly due to ET dysfunction, viral illness, allergies, barotrauma, or recent AOM. Advised patient that fluid in middle ear may take several weeks to resolve. Take medications as directed. Supportive treatment as directed, push fluids/test, Tylenol/Motrin for discomfort. Advised patient to call into if symptoms are worsening in next 72 hours for reevaluation of if antibiotic therapy is necessary. Follow up with PCP in 2 weeks or sooner for new or worsening symptoms. Patient verbalizes understanding and is agreeable to treatment plan May, Sore throat (ICD-10 - J02.9) May, Other Additional time spent conducting pre-visit phone call, screening for symptoms, instructions on social distancing, application and removal of PPE, and cleaning of examination room, equipment and supplies was preformed. Patient education given for testing methodology and results. Patient care instructions given in writting by [facility] Care At Home document [facility] Other Evaluation note Note Date & Type Note Facility Evaluation note Diagnosis Nonintractable headache, unspecified chronicity pattern, unspecified headache type- Primary Acute recurrent sinusitis, unspecified location documented in this encounter [employer] Phone: Evaluation note Note Date & Type Note Facility Evaluation note Diagnosis Viral syndrome- Primary Unspecified viral infection, in conditions classified elsewhere and of unspecified site Migraine without aura and with status migrainosus, not intractable Migraine without aura, without mention of intractable migraine with status migrainosus Sinus congestion Other diseases of nasal cavity and sinuses documented in this encounter [employer] Phone: History general Narrative - Reported Note Date & Type Note Facility History general Narrative - Reported Type Surgical History Gallbladder 2009 Surgical History t&a Surgical History tubal ligation [facility] Other History general Narrative - Reported Note Date & Type Note Facility History general Narrative - Reported Type Surgical History Gallbladder 2009 Surgical History t&a Surgical History tubal ligation Hospitalization History see above [facility] Other Summary Purpose Family History No Family History Records FoundNo Family History Records FoundNo Family History Records FoundNo Family History Records Found Advance Directives No Advanced Directives Records FoundNo Advanced Directives Records FoundNo Advanced Directives Records FoundNo Advanced Directives Records Found Additional Source Comments INFORMATION SOURCE (unrecogn ized section and content) DATE CREATED AUTHOR 02/23/2020 [facility] [facility] DATE CREATED AUTHOR AUTHOR'S ORGANIZ ATION 08/26/2022 [facility] DATE CREATED AUTHOR AUTHOR'S ORGANIZ ATION 05/26/2023 [facility] DATE CREATED AUTHOR AUTHOR'S ORGANIZ ATION 06/24/2023 [facility] EPIC REASON FOR VISIT (unrecogniz ed section and content) Reason Comments Headache Reason Comments Migraine Onset 2 days ago, se en here yesterday for same complaint, was told to come back if symptoms did not improve Congestion Onset 2 days ago Fever Generalized Body Aches Ordered Prescriptions (unrec ognized section and content) Prescription Sig Dispensed Refills Start Date End Da te HYDROcodone-acetaminophe n (NORCO) 5-325 MG per tabletIndications:Nonint ractable headache, unspecified chronicity pattern, unspecified headache type,Acute recurrent sinusitis, unspecified location Take 1 tablet by mouth every 6 hours as needed for Pain for up to 2 days. Intended supply: 3 days. Take lowest dose possible to manage pain Max Daily Amount: 4 tablets 4 tablet 0 10/22/2022 10/24/2022 amoxicillin-clavulanate (AUGMENTIN) 875-125 MG per tablet Take 1 tablet by mouth 2 times daily for 10 days 20 tablet 0 10/22/2022 11/01/2022 Scheduled Active and Recently Administ ered Medications (unrecognized section and content) Medication Order 10/20/2022 10/21/2022 10/22/2022 0.9 % sodium chloride bolus (COMPLETED) 1,000 mL (11.6 mL/kg), IntraVENous, at 983.6 mL/hr, Administer over 61 Minutes, ONCE, On Thu10/22/22 at 1015, For 1 dose 1024 (New Bag - Prov ider: Madisyn Santiago RN)1130 (Stopped - Provider: Aleah Heard RN) diphenhydrAMINE (BENADRYL) injection 25 mg (COMPLETED) 25 mg, IntraVENous, ONCE, 1 dose, On Thu10/22/22 at 1015, IV Push at rate not to exceed 25 mg/min. 1026 (Given - Provid er: Madisyn Santiago RN) HYDROcodone-acetaminophen (NORCO) 5-325 MG per tablet 1 tablet (COMPLETED) 1 tablet, Oral, ONCE, 1 dose, On Thu10/22/22 at 1145, Maximum dose of acetaminophen is 4000 mg from all sources in 24 hours. 1143 (Given - Provid er: Aleah Heard RN) ketorolac (TORADOL) injection 30 mg (COMPLETED) 30 mg, IntraVENous, ONCE, 1 dose, On Thu10/22/22 at 1015, Do not administer for more than 5 days. 1026 (Given - Provid er: Madisyn Santiago RN) promethazine (PHENERGAN) tablet 25 mg (COMPLETED) 25 mg, Oral, ONCE, 1 dose, On Thu10/22/22 at 1015 1024 (Given - Provid er: Madisyn Santiago RN) Scheduled Medication Order 10/21/2022 10/22/2022 10/23/2022 0.9 % sodium chloride bolus (COMPLETED) 1,000 mL (11.6 mL/kg), IntraVENous, at 983.6 mL/hr, Administer over 61 Minutes, ONCE, On Fadumo 10/23/22 at 0845, For 1 dose, For adult patients weighing > 55 kg (120 lbs.) and less than <50 years of age initiate 0.9NS at 500 mL/ hr. All bolus orders are to be given over 10 to 15 minutes 0857 (New Bag - Prov ider: Denisse Rick RN)0958 (Stopped - Provider: Denisse Rick RN) acetaminophen (TYLENOL) tablet 650 mg (COMPLETED) 650 mg, Oral, ONCE, 1 dose, On Fadumo 10/23/22 at 0845, Maximum dose of acetaminophen is 4000 mg from all sources in 24 hours. 0900 (Given - Provid er: Denisse Rick RN) diphenhydrAMINE (BENADRYL) injection 25 mg (COMPLETED) 25 mg, IntraVENous, ONCE, 1 dose, On Fadumo 10/23/22 at 0845, IV Push at rate not to exceed 25 mg/min. 0858 (Given - Provid er: Denisse Rick RN) haloperidol lactate (HALDOL) injection 2 mg (COMPLETED) 2 mg, IntraVENous, ONCE, 1 dose, On Fadumo 10/23/22 at 0845, IM route of administration preferred. Because of the risk of TdP and QT prolongation, ECG monitoring is recommended if haloperidol is given IV. 0859 (Given - Provid er: Denisse Rick RN) Care Teams (unrecognized sec tion and content) [employer] Relationship Specialty Start Date End Date Mani Galvan MD [address] [place] [address] PCP - General Family Medicine 10/23/22 FOR RECORDS PERTAINING TO PATIENTS WHO ARE OR HAVE BEEN ENROLLED IN A CHEMICAL DEPENDENCY/SUBSTANCEABUSE PROGRAM, SOME INFORMATION MAY BE OMITTED. This clinical summary was aggregated from multiple sources. Caution should be exercised in using it in the provision of clinical care. This summary normalizes information from multiple sources, and as a consequence, information in this document may materially change the coding, format and clinical context of patient data. In addition, data may be omitted in some cases. CLINICAL DECISIONS SHOULD BE BASED ON THE PRIMARY CLINICAL RECORDS. [employer]. provides no warranty or guarantee of the accuracy or completeness of information in this document.
== END 2023-07-08 10:04 | disposition home or self-care (01) ==
LOC: NOMS 10:03
PROVIDERS: PCP Nurse Practitioner; Visit Provider Obstetrics & Gynecology
DX: Z01.419 Encounter for gynecological examination (general) (routine) without abnormal findings (principal); E28.2 Polycystic ovarian syndrome
CPT/HCPCS: 76830; 76856; 87624; G0145

== ENCOUNTER 2023-07-08 19:46 | Outpatient (REF) | payer OTHER, SELFPAY ==
--- OUTSIDE RECORDS SUMMARY | 2023-07-08 19:51 | XMS_ITS | CCD ---
Author Name Unknown Address [address] [place] [address] Organization [facility] Care Team Providers Care Shingler Name Role Phone Lissette Lee Unavailable Lissette Shin Unavailable AICHHOLZ, CONVERT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 [employer] Admitting Unavailable AICHHOLZ, CONVERT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 [employer] Attending Unavailable AICHHOLZ, CONVERT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 [employer] Primary Care Unavailable AICHHOLZ, CONVERT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 [employer] Consulting Unavailable AICHHOLZ, CONVERT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 [employer] Admitting Unavailable AICHHOLZ, CONVERT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 [employer] Attending Unavailable AICHHOLZ, CONVERT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 [employer] Primary Care Unavailable AICHHOLZ, CONVERT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 [employer] Consulting Unavailable AICHHOLZ, CONVERT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 [employer] Admitting Unavailable AICHHOLZ, CONVERT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 [employer] Attending Unavailable AICHHOLZ, CONVERT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 [employer] Primary Care Unavailable AICHHOLZ, CONVERT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 [employer] Consulting Unavailable AICHHOLZ, CONVERT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 [employer] Primary Care Unavailable ROBERT ONTIVEROS Consulting Unavailable ROBERT ONTIVEROS Admitting Unavailable ROBERT ONTIVEROS Attending Unavailable AICHHOLZ, CONVERT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 [employer] Primary Care Unavailable MARICEL ., CAROLYNN Admitting Unavailable MARICEL .GUSTAVOID Attending Unavailable MARICEL ., CAROLYNN Consulting Unavailable AICHHOLZ, CONVERT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 [employer] Primary Care Unavailable MARICEL ., CAROLYNN Admitting Unavailable MARICEL .GUSTAVOID Attending Unavailable MARICEL ., CAROLYNN Consulting Unavailable AICHHOLZ, CONVERT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 [employer] Primary Care Unavailable DR MARCY GU Admitting Unavailable SAMANTHA Vasquez, DR VIDAL Attending Unavailable Emmanuel Roman Consulting Unavailable DR MARCY GU Consulting Unavailable AICHHOLZ, CONVERT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 [employer] Admitting Unavailable AICHHOLZ, CONVERT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 [employer] Attending Unavailable AICHHOLZ, CONVERT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 [employer] Primary Care Unavailable AICHHOLZ, CONVERT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 [employer] Consulting Unavailable AICHHOLZ, CONVERT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 [employer] Admitting Unavailable AICHHOLZ, CONVERT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 [employer] Attending Unavailable CRISTINO GRIJALVAA Primary Care Unavailable CRISTINO GRIJALVA [facility] Consulting Unavailable Unavailable Primary Care Provider UnavailMani Bonds MD Primary Care Provider [phone] DENISSE ANN Attending Unavailable DENISSE ANN Attending [...] ORCO) 5-325 MG per tablet 1 tablet [id number] 200 actuat albuterol 0.09 mg/actuat metered dose [...] Flu A Ag Detection Negative Normal NEG [facility] Comment on above: Result Comment: for Influenza A Antigen Performed By: #### F DALTON #### [facility] [address] [place] [address] [place] [address] Stock Patch Sawyer: Taran De Los Santos MD Flu B Ag Detection Negative Normal NEG [facility] Comment on above: Result Comment: for Influenza B Antigen. Performed By: #### F DALTON #### [facility] [address] [place] [address] Stock Patch Sawyer: Taran De Los Santos MD [id number] 05-26-2023 SARS-CoV-2 (COVID-19) RNA AMPARO+probe Ql (Unsp spec) Detected Abnormal NOTDET [facility] Comment on above: Result Comment: Rapid NAAT: [...] this assay. Fact sheet for Healthcare Providers: https://www.fda.gov/media/184395/download Fact sheet for Patients: https://www.fda.gov/media/932793/download Methodology: Isothermal Nucleic Acid Amplification Results reported to the appropriate Health Department Performed By: #### R CAP LINING MACHINE OPERATOR #### [facility] [address] [place] [address] Stock Patch Sawyer: Enrique Ortega MD [facility] [address] [place] [address] [place] [address] Stock Patch Sawyer: Taran De Los Santos MD Resp Viral Panelon 3 Adenovirus Detected Abnormal NOTDET [facility] Comment on above: Performed By: #### R CAP LINING MACHINE OPERATOR #### [id number] [place] [address] Stock Patch Sawyer: Enrique Ortega MD [facility] [address] [place] [address] [place], [place] [phone] Stock Patch Sawyer: MD Stella Newbyt.parapertussis Not detected Normal [facility] Comment on above: Performed By: #### R CAP LINING MACHINE OPERATOR #### [address] [address] Stock Patch Sawyer: Enrique Ortega MD [address] [place], [place] [phone] Stock Patch Sawyer: Taran De Los Santos MD Bordetella pertussis Not detected Normal [facility] Comment on above: Performed By: #### R CAP LINING MACHINE OPERATOR #### [address] [address] Stock Patch Sawyer: Enrique Ortega MD [facility] [address] [place] [address] [place] [address] Stock Patch Sawyer: Taran De Los Santos MD Chlamyd.pneumoniae Not detected Normal [facility] Comment on above: Performed By: #### R CAP LINING MACHINE OPERATOR #### [address] [address] Stock Patch Sawyer: Enrique Ortega MD [facility] [address] [place] [address] [place] [address] Stock Patch Sawyer: Taran De Los Santos MD Coronavirus 229E Not detected Normal [facility] Comment on above: Performed By: #### R CAP LINING MACHINE OPERATOR #### [address] [address] Stock Patch Sawyer: Enrique Ortega MD [facility] [address] [place] [address] Dr[place], [place] [phone] Stock Patch Sawyer: Taran De Los Santos MD Coronavirus HKU1 Not detected [facility] Comment on above: Performed By: #### R CAP LINING MACHINE OPERATOR #### [facility] [address] [place] [address] Stock Patch Sawyer: Enrique Ortega MD [facility] [address] [place] [address] [place], [place] [phone] Stock Patch Sawyer: Taran De Los Santos MD Coronavirus NL63 Not detected [facility] Comment on above: Performed By: #### R CAP LINING MACHINE OPERATOR #### [address] [address] Stock Patch Sawyer: Enrique Ortega MD [facility] [address] [place] [address] [place], [place] [phone] Stock Patch Sawyer: Taran De Los Santos MD Coronavirus OC43 Not detected [facility] Comment on above: Performed By: #### R CAP LINING MACHINE OPERATOR #### [address] [address] Stock Patch Sawyer: Enrique Ortega MD [facility] [address] [place] [address] [place] [address] Stock Patch Sawyer: Taran De Los Santos MD Human Metapneumo Not detected [facility] Comment on above: Performed By: #### R CAP LINING MACHINE OPERATOR #### [address] [address] Stock Patch Sawyer: Enrique Ortega MD [facility] [address] [place] [address] [place] [address] Stock Patch Sawyer: Taran De Los Santos MD Influenza A Not detected [facility] Comment on above: Performed By: #### R CAP LINING MACHINE OPERATOR #### [address] [address] Stock Patch Sawyer: Enrique Ortega MD [facility] [address] [place] [address] [place] [address] Stock Patch Sawyer: Taran De Los Santos MD Influenza B Not detected Normal [facility] Comment on above: Performed By: #### R CAP LINING MACHINE OPERATOR #### [facility] [address] [place] [address] Stock Patch Sawyer: Enrique Ortega MD [facility] [address] [place] [address] [place] [address] Stock Patch Sawyer: Taran De Los Santos MD Mycoplas.pneumoniae Not detected Normal [facility] Comment on above: Result Comment: Perf ormed by multiplexed nucleic acid assay. Performed By: #### R CAP LINING MACHINE OPERATOR #### [address] [address] Stock Patch Sawyer: Enrique Ortega MD [facility] [address] [place] [address] [place] [address] Stock Patch Sawyer: Taran De Los Santos MD Parainfluenza 1 Not detected Normal [facility] Comment on above: Performed By: #### R CAP LINING MACHINE OPERATOR #### [address] [address] Stock Patch Sawyer: Enrique Ortega MD [facility] [address] [place] [address] [place] [address] Stock Patch Sawyer: Taran De Los Santos MD Parainfluenza 2 Not detected [facility] Comment on above: Performed By: #### R CAP LINING MACHINE OPERATOR #### [address] [address] Stock Patch Sawyer: Enrique Ortega MD [facility] [address] [place] [address] [place] [address] Stock Patch Sawyer: Taran De Los Santos MD Parainfluenza 3 Not detected Normal [facility] Comment on above: Performed By: #### R CAP LINING MACHINE OPERATOR #### [facility] [address] [place] [address] Stock Patch Sawyer: Enrique Ortega MD [facility] [address] [place] [address] [place] [address] Stock Patch Sawyer: Taran De Los Santos MD Parainfluenza 4 Not detected Normal [facility] Comment on above: Performed By: #### R CAP LINING MACHINE OPERATOR #### [facility] [address] [place] [address] Stock Patch Sawyer: Enrique Ortega MD [facility] [address] [place] [address] [place], [place] [phone] Stock Patch Sawyer: Taran De Los Santos MD Resp Syncytial Virus Not detected Normal [facility] Comment on above: Performed By: #### R CAP LINING MACHINE OPERATOR #### [address] [address] Stock Patch Sawyer: Enrique Ortega MD [address] [place], [place] [address] Stock Patch Sawyer: Taran De Los Santos MD Rhino/Enterovirus Not detected [facility] Comment on above: Performed By: #### R CAP LINING MACHINE OPERATOR #### [facility] [address] [place] [address] Stock Patch Sawyer: Enrique Ortega MD [facility] [address] [place] [address] [place] [place], [place] [phone] Stock Patch Sawyer: Taran De Los Santos MD SARS-CoV-2 (COVID-19) RNA AMPARO+probe Ql (Unsp spec) Not detected Normal [facility] Comment on above: Performed By: #### R CAP LINING MACHINE OPERATOR #### [address] [address] Stock Patch Sawyer: Enrique Ortega MD [facility] [address] [place] [address] [place] [place], [place] [phone] Stock Patch Sawyer: Taran De Los Santos MD [facility] 10-23-2022 Anion gap [Moles/Vol] 10 mmol/L 9 - 17 mmol/L [facility] Calcium [Mass/Vol] 8.4 mg/dL Low 8.6 - 10. 4 mg/dL [facility] Chloride [Moles/Vol] 107 mmol/L 98 - 10 7 mmol/L [facility] CO2 [Moles/Vol] 24 mmol/L 20 - 31 mmol/L [facility] Creatinine [Mass/Vol] 0.88 mg/dL 0.50 - 0.90 mg/dL [facility] GFR/1.73 sq M.predicted MDRD (S/P/Bld) [Vol rate/Area] - PINF [facility] Comment on above: These results are not [...] [Mass/Vol] 95 mg/dL 70 - 99 mg/dL [facility] Potassium [Moles/Vol] 3.9 mmol/L 3.7 - 5.3 mmol/L [facility] Sodium [Moles/Vol] 141 mmol/L 135 - 144 mmol/L [facility] Urea nitrogen [Mass/Vol] 7 mg/dL 6 - 20 mg/dL [facility] Urea nitrogen/Creatinine [Mass ratio] 8 mg/mg Low 9 - 20 [facility] Basic Metabolic Profon 10-23 Anion gap [Moles/Vol] 10 mmol/L Normal -17 [facility] Comment on above: Performed By: #### C DP, IPF, SED, BMP, CRP #### [facility] [address] [place] [address] Stock Patch Sawyer: Taran De Los Santos MD BUN/CRE Ratio 8 Low 9-20 [facility] Comment on above: Performed By: #### C DP, IPF, SED, BMP, CRP #### [facility] [address] [place] [address] Stock Patch Sawyer: Taran De Los Santos MD Calcium [Mass/Vol] 8.4 mg/dL Low 8.6-10.4 [facility] Comment on above: Performed By: #### C DP, IPF, SED, BMP, CRP #### [facility] [address] [place] [address] Stock Patch Sawyer: Taran De Los Santos MD Chloride [Moles/Vol] 107 mmol/L Normal 98-[address] [facility] Comment on above: Performed By: #### C DP, IPF, SED, BMP, CRP #### [facility] [address] [place] [address] Stock Patch Sawyer: Taran De Los Santos MD CO2 [Moles/Vol] 24 mmol/L Normal 20-31 [facility] Comment on above: Performed By: #### C DP, IPF, SED, BMP, CRP #### [facility] [address] [place] [address] Stock Patch Sawyer: Taran De Los Santos MD Creatinine [Mass/Vol] 0.88 mg/dL Normal 0.50-0.90 [facility] Comment on above: Performed By: #### C DP, IPF, SED, BMP, CRP #### [facility] [address] [place] [address] Stock Patch Sawyer: Taran De Los Santos MD GFR/1.73 sq M.predicted among non-blacks MDRD (S/P/Bld) [Vol rate/Area] mL/min/{1.73_m2} Normal >60 [facility] Comment on above: Result Comment: These results [...] C DP, IPF, SED, BMP, CRP #### [facility] [address] [place] [address] Stock Patch Sawyer: Taran De Los Santos MD Glucose [Mass/Vol] 95 mg/dL Normal 70-99 [facility] Comment on above: Performed By: #### C DP, IPF, SED, BMP, CRP #### [facility] [address] [place] [address] Stock Patch Sawyer: Taran De Los Santos MD Potassium [Moles/Vol] 3.9 mmol/L Normal 3.7-5.3 [facility] Comment on above: Performed By: #### C DP, IPF, SED, BMP, CRP #### [facility] [address] [place] [address] Stock Patch Sawyer: Taran De Los Santos MD Sodium [Moles/Vol] 141 mmol/L Normal 135-144 [facility] Comment on above: Performed By: #### C DP, IPF, SED, BMP, CRP #### [address] [place] [address] Stock Patch Sawyer: Taran De Los Santos MD Urea nitrogen [Mass/Vol] 7 mg/dL Normal 6-20 [facility] Comment on above: Performed By: #### C DP, IPF, SED, BMP, CRP #### [address] [place] [address] Stock Patch Sawyer: Taran De Los Santos MD C-Reactive Proteinon 023 CRP [Mass/Vol] 34.0 mg/L High 0.0-5.0 [facility] Comment on above: Performed By: #### C DP, IPF, SED, BMP, CRP #### [facility] [address] [place] [address] [place], [place] [phone] Stock Patch Sawyer: Taran De Los Santos MD CRP High sensitivity method [Mass/Vol] 34 mg/L High 0.0 - 5.0 mg/L [facility] CBC with Auto Differentialon 10-23-2022 Basophils (Bld) [#/Vol] [facility] Basophils/100 WBC (Bld) 0 % 0 - 2 % [facility] Eosinophils (Bld) [#/Vol] 0.07 10*3/uL [facility] Eosinophils/100 WBC (Bld) 1 % 1 - 4 % [facility] Erythrocyte distribution width (RBC) [Ratio] 13.0 % 11.8 - 14.4 % [facility] Hematocrit (Bld) [Volume fraction] 39.0 % 36.3 - 47.1 % [facility] Hemoglobin (Bld) [Mass/Vol] 13.1 g/dL 11.9 - 15.1 g/dL [facility] Immature granulocytes (Bld) [#/Vol] [facility] Immature granulocytes/100 WBC (Bld) 0 % 0 [facility] Interpretation and review of laboratory results Abnormal [facility] Lymphocytes/100 WBC (Bld) 17 % Low 24 - 43 % [facility] Lymphocytes/100 WBC (Bld) 1.06 % Low [facility] MCH (RBC) [Entitic mass] 31.2 pg 25.2 - 33.5 pg [facility] MCHC (RBC) [Mass/Vol] 33.6 g/dL 28.4 - 34.8 g/dL [facility] MCV (RBC) [Entitic vol] 92.9 fL 82.6 - 102.9 fL [facility] Monocytes/100 WBC (Bld) 13 % High 3 - 12 % [facility] Monocytes/100 WBC (Bld) 0.82 % [facility] Neutrophils/100 WBC (Bld) 69 % High 36 - 65 % [facility] NRBC Automated 0.0 0.0 per 100 WBC [facility] Platelets (Bld) [#/Vol] See Reflexed IPF Result [facility] RBC (Bld) [#/Vol] 4.20 10*6/uL 3.95 - 5.1 1 m/uL [facility] Segmented neutrophils/100 WBC (Bld) 4.40 % [facility] WBC other (Bld) [#/Vol] 6.4 [facility] CBC with Diffon 10-23-2022 Abs. Basophil <0.03 Normal 0.00-0.20 [facility] Comment on above: Performed By: #### C DP, IPF, SED, BMP, CRP #### [address] [place], [place] [phone] Stock Patch Sawyer: Taran De Los Santos MD Abs.Imm.Granulocyte <0.03 Normal 0.00-0.30 [facility] Comment on above: Performed By: #### C DP, IPF, SED, BMP, CRP #### [address] [place] [address] Stock Patch Sawyer: Taran De Los Santos MD Abs.Neutrophil (Seg) 4.40 k/uL Normal 1.50-8.[address] [facility] Comment on above: Performed By: #### C DP, IPF, SED, BMP, CRP #### [address] [place] [phone] Stock Patch Sawyer: Taran De Los Santos MD Basophils/100 WBC (Bld) 0 % Normal 0-2 [facility] Comment on above: Performed By: #### C DP, IPF, SED, BMP, CRP #### [address] [place] [phone] Stock Patch Sawyer: Taran De Los Santos MD Eosinophils (Bld) [#/Vol] 0.07 10*3/uL Normal 0.00-0.44 [facility] Comment on above: Performed By: #### C DP, IPF, SED, BMP, CRP #### [address] [place], [facility]83 Stock Patch Sawyer: Taran De Los Santos MD Eosinophils/100 WBC (Bld) 1 % Normal 1-4 [facility] Comment on above: Performed By: #### C DP, IPF, SED, BMP, CRP #### [address] [place], [place] [phone] Stock Patch Sawyer: Taran De Los Santos MD Immature granulocytes/100 WBC (Bld) 0 % Normal 0 [facility] Comment on above: Performed By: #### C DP, IPF, SED, BMP, CRP #### [facility] [address] [place] [address] Stock Patch Sawyer: Taran De Los Santos MD Lymphocytes (Bld) [#/Vol] 1.06 10*3/uL Low 1.10-3.70 [facility] Comment on above: Performed By: #### C DP, IPF, SED, BMP, CRP #### [facility] [address] [place], [place] [phone] Stock Patch Sawyer: Taran De Los Santos MD Lymphocytes/100 WBC (Bld) 17 % Low 24-43 [facility] Comment on above: Performed By: #### C DP, IPF, SED, BMP, CRP #### [address] [place] [phone] Stock Patch Sawyer: Taran De Los Santos MD Monocytes (Bld) [#/Vol] 0.82 10*3/uL Normal 0.10-1.20 [facility] Comment on above: Performed By: #### C DP, IPF, SED, BMP, CRP #### [address] [place], [place] [phone] Stock Patch Sawyer: Taran De Los Santos MD Monocytes/100 WBC (Bld) 13 % High 3-12 [facility] Comment on above: Performed By: #### C DP, IPF, SED, BMP, CRP #### [facility] [address] [place] [address] Dr. [place], [place] [phone] Stock Patch Sawyer: Taran De Los Santos MD Neutrophil (Seg) 69 % High 36-65 [facility] Comment on above: Performed By: #### C DP, IPF, SED, BMP, CRP #### [facility] [address] [place] [address] Stock Patch Sawyer: Taran De Los Santos MD Erythrocyte distribution width (RBC) [Ratio] 13.0 % Normal 11.8-14.4 [facility] Comment on above: Performed By: #### C DP, IPF, SED, BMP, CRP #### [address] [place] [phone] Stock Patch Sawyer: Taran De Los Santos MD Hematocrit (Bld) [Volume fraction] 39.0 % Normal 36.3-47.1 [facility] Comment on above: Performed By: #### C DP, IPF, SED, BMP, CRP #### [address] [place] [phone] Stock Patch Sawyer: Taran De Los Santos MD Hemoglobin (Bld) [Mass/Vol] 13.1 g/dL Normal 11.9-15.1 [facility] Comment on above: Performed By: #### C DP, IPF, SED, BMP, CRP #### [address] [place], [facility]83 Stock Patch Sawyer: Taran De Los Santos MD MCH (RBC) [Entitic mass] 31.2 pg Normal 25.2-33.5 [facility] Comment on above: Performed By: #### C DP, IPF, SED, BMP, CRP #### [address] [place] [address] Stock Patch Sawyer: Taran De Los Santos MD MCHC (RBC) [Mass/Vol] 33.6 g/dL Normal 28.4-34.8 [facility] Comment on above: Performed By: #### C DP, IPF, SED, BMP, CRP #### [address] [place], [facility]83 Stock Patch Sawyer: Taran De Los Santos MD MCV (RBC) [Entitic vol] 92.9 fL Normal 82.6-102.9 [facility] Comment on above: Performed By: #### C DP, IPF, SED, BMP, CRP #### [address] [place] [address] Stock Patch Sawyer: Taran De Los Santos MD NRBC Automated 0.0 per 100 WBC Normal 0.0 [facility] Comment on above: Performed By: #### C DP, IPF, SED, BMP, CRP #### [facility] [address] [place] [address] Dr. [place], [place] [phone] Stock Patch Sawyer: Taran De Los Santos MD Platelet Count See Reflexed IPF Result Normal 138-453 [facility] Comment on above: Performed By: #### C DP, IPF, SED, BMP, CRP #### [address] [place], [place] [phone] Stock Patch Sawyer: Taran De Los Santos MD RBC (Bld) [#/Vol] 4.20 10*6/uL Normal 3.95-5.11 [facility] Comment on above: Performed By: #### C DP, IPF, SED, BMP, CRP #### [address] [place], [facility]83 Stock Patch Sawyer: Taran De Los Santos MD WBC (Bld) [#/Vol] 6.4 10*3/uL Normal 3.5-11.3 [facility] Comment on above: Performed By: #### C DP, IPF, SED, BMP, CRP #### [address] [place], [facility]83 Stock Patch Sawyer: Taran De Los Santos MD COVID-19, Rapidon 10-23-2022 SARS-CoV-2 (COVID-19) RdRp gene AMPARO+probe Ql (Resp) Not detected Not Detected [facility] Comment on above: Rapid NAAT: The specimen [...] management decisions. Fact sheet for Healthcare Providers: https://www.fda.gov/media/776513/download Fact sheet for Patients: https://www.fda.gov/media/270963/download Methodology: Isothermal Nucleic Acid Amplification Specimen Description .NASOPHARYNGEAL SWAB [facility] CT HEAD WO CONTRASTon 2022 CT [...] Joby Holt MD 10/23/22 Final result Normal [facility] CT Head W/O Contraston 10-23 No acute [...] of the visualized skull or soft tissues. [facility] Joby La M D - 10/23/2022 EXAMINATION: [...] acute intracranial abnormality. Paranasal sinus inflammatory disease [facility] [employer] Phone: Radiology Study observation (narrative) [employer] Phone: CT Head W/O ContrastOrdered By: Joby Holt on 10-23-2022 [facility] [employer] Phone: Flu A/B Ag Detectionon 10-23 Flu A Ag Detection Negative Normal NEG [facility] Comment on above: Result Comment: for Influenza A Antigen Performed By: #### R CAP LINING MACHINE OPERATOR #### [facility] [address] [place] [address] Stock Patch Sawyer: Enrique Ortega MD [facility] [address] [place] [address] Dr. [place] [phone] Stock Patch Sawyer: Taran De Los Santos MD Flu B Ag Detection Negative Normal NEG [facility] Comment on above: Result Comment: for Influenza B Antigen. Performed By: #### R CAP LINING MACHINE OPERATOR #### [facility] [address] [place] [address] Stock Patch Sawyer: Enrique Ortega MD [facility] [address] [place] [address] [place] [address] Stock Patch Sawyer: Taran De Los Santos MD Immature Platelet Fractionon 10-23-2022 Interpretation and review of laboratory results Abnormal [facility] Platelet, Fluorescence 128 Low [facility] Platelets reticulated/100 platelets Auto (Bld) 5.2 % 1.1 - 10.3 % [facility] Mononucleosis Screenon 10-23 Mononucleosis Screen Negative Normal NEG [facility] Comment on above: Performed By: #### M CHERYL #### [facility] [address] [place] [address] Dr. [place] [phone] Stock Patch Sawyer: Taran De Los Santos MD Heterophile Ab IA Ql (Bld) Negative NEGATIVE [facility] No Panel Informationon 10-23 Interpretation and review of laboratory results Abnormal [facility] PLT, Immature Fract.on 10-23 Platelet, Fluoresc. 128 k/uL Low 138-453 [facility] Comment on above: Performed By: #### C DP, IPF, SED, BMP, CRP #### [facility] [address] [place] [address] Dr. [place], [place] [id number] Stock Patch Sawyer: Taran De Los Santos MD PLT, Immature Fract. 5.2 % Normal 1.1-10.[address] [facility] Comment on above: Performed By: #### C DP, IPF, SED, BMP, CRP #### [facility] [address] [place] [address] [place] [address] Stock Patch Sawyer: Taran De Los Santos MD Rapid influenza A/B antigens on 10-23-2022 FLUAV Ag Ql (Unsp spec) Negative NEGATIVE [facility] Comment on above: for Influenza A Anti gen FLUBV Ag Ql (Unsp spec) Negative NEGATIVE [facility] Comment on above: for Influenza B Anti gen. [facility] Resp Viral Panelon 3 Source: .NASOPHARYNGEAL SWAB Normal [facility] Comment on above: Performed By: #### R CAP LINING MACHINE OPERATOR #### [address] [address] Stock Patch Sawyer: Enrique Ortega MD [address] [place] [address] Stock Patch Sawyer: Taran De Los Santos MD [id number] 10-23-2022 SARS-CoV-2 (COVID-19) RNA AMPARO+probe Ql (Unsp spec) Not detected Normal NOTDET [facility] Comment on above: Result Comment: Rapid NAAT: [...] management decisions. Fact sheet for Healthcare Providers: https://www.fda.gov/media/199323/download Fact sheet for Patients: https://www.fda.gov/media/152662/download Methodology: Isothermal Nucleic Acid Amplification Performed By: #### C OVRB #### [facility] [address] [place] [address] Stock Patch Sawyer: Taran De Los Santos MD Sedimentation Rateon 023 Sedimentation Rate 11 mm/Hr Normal 0-20 [facility] Comment on above: Performed By: #### C DP, IPF, SED, BMP, CRP #### [facility] [address] [place] [address] Stock Patch Sawyer: Taran De Los Santos MD ESR (Bld) [Velocity] 11 mm/h [facility] XR CHEST PORTABLEon 10-24-19 23 XR [...] Damian Keys MD 10/23/22 Final result Normal [facility] No acute process. Possible mild bronchitis. MHPN [...] IMPRESSION: No acute process. Possible mild bronchitis. [facility] [employer] Work Phone: Radiology Study observation (narrative) [facility] [employer] Phone: XR CHEST PORTABLEOrdered By: Damian Keys on 10-23-2022 [facility] [employer] Work Phone: COVID-19, Rapidon 10-22-2022 SARS-CoV-2 (COVID-19) RdRp gene AMPARO+probe Ql (Resp) Not detected Not Detected [facility] Comment on above: Rapid NAAT: The specimen [...] management decisions. Fact sheet for Healthcare Providers: https://www.fda.gov/media/264790/download Fact sheet for Patients: https://www.fda.gov/media/475363/download Methodology: Isothermal Nucleic Acid Amplification Specimen Description .NASOPHARYNGEAL SWAB [facility] [id number] 10-22-2022 SARS-CoV-2 (COVID-19) RNA AMPARO+probe Ql (Unsp spec) Not detected Normal [facility] Comment on above: Result Comment: [...] management decisions. Fact sheet for Healthcare Providers: https://www.fda.gov/media/186561/download Fact sheet for Patients: https://www.fda.gov/media/406711/download Methodology: Isothermal Nucleic Acid Amplification Performed By: #### C OVRB #### [facility] [address] [place] [address] [place] [address] Stock Patch Sawyer: Taran De Los Santos MD GROUP A STREP CULTUREon 06-26 S. pyogenes Ag Ql (Unsp spec) Culture Observations: NEGATIVE FOR GROUP A STREPTOCOCCUS. Normal [facility] Comment on above: Performed By: #### C BC #### [facility] [address] [address] [address] Sofia Payne STREPT SCREENon 07-19-2022 STREP SCREEN A Negative Normal NEGATIVE [facility] Comment on above: Performed By: #### C BC #### [facility] [address] [address] [address] Sofia Payne [facility]25 SARS-CoV-2 (COVID-19) RNA AMPARO+probe Ql (Unsp spec) Not detected Normal NOT DETECTED [facility] Comment on above: Result Comment: This test is not yet approved or cleared by the [place] FDA. When there are no FDA-approved or cleared tests available, and other criteria are met, FDA can make tests available under an emergency access mechanism called an Emergency Use Authorization (EUA). The EUA for this test is supported by the [place] of Health and Human Service's (HHS's) declaration [...] SARS-CoV-2. Performed By: #### C BC #### [facility] [address] [place] [address] Dr. Sofia Payne INFLUENZA A AND B AGon 05-20 [facility] SEE BELOW Normal [facility] Comment on above: Result Comment: Nega tive for Flu A protein angiten. Infection due to Flu A cannot be ruled out. Flu A angiten in the sample may be below the detection limit of the test. Performed By: #### C BC #### [facility] [address] [place] [address] Dr. Sofia Payne INFLUBNEG SEE BELOW Normal [facility] Comment on above: Result Comment: Nega tive for Flu B protein antigen. Infection due to Flu B cannot be ruled out. Flu B antigen in the sample may be below the detection limit of the test. Performed By: #### C BC #### [facility] [address] [place] [address] Dr. Sofia Payne INFLUENZA A AG Negative Normal NEGATIVE SEE COMMENT [facility] Comment on above: Performed By: #### C BC #### [facility] [address] [place] [address] Dr. Sofia Payne INFLUENZA B AG Negative Normal NEGATIVE SEE COMMENT [facility] Comment on above: Performed By: #### C BC #### [facility] [address] [place] [address] Dr. Sofia Payne INTERNAL CONTROLS Within Normal Limits Normal Wi thin Normal Limits [facility] Comment on above: Performed By: #### C BC #### [facility] [address] [place] [address] Dr. Sofia Payne CBC AUTO DIFFon 05-01-2022 BASO # 0.0 103/ul Normal 0.0-0.1 [facility] Comment on above: Performed By: #### C BC #### [facility] [address] [place] [address] Dr. Sofia Payne Basophils/100 WBC (Bld) 0.4 % Normal 0.2-2.0 [facility] Comment on above: Performed By: #### C BC #### [facility] [address] [place] [address] Dr. Sofia Payne EO # 0.2 103/ul Normal 0.0-0.7 [facility] Comment on above: Performed By: #### C BC #### [facility] [address] [place] [address] Dr. Sofia Payne Eosinophils/100 WBC (Bld) 1.6 % Normal 0.9-7.0 [facility] Comment on above: Performed By: #### C BC #### [facility] [address] [place] [address] Dr. Sofia Payne Erythrocyte distribution width (RBC) [Ratio] 12.8 % Normal 11.0-15.0 [facility] Comment on above: Performed By: #### C BC #### [facility] [address] [place] [address] Dr. Sofia Payne Hematocrit (Bld) [Volume fraction] 41.9 % Normal 36.0-48.0 [facility] Comment on above: Performed By: #### C BC #### [facility] [address] [place] [address] Dr. Sofia Payne Hemoglobin (Bld) [Mass/Vol] 14.6 g/dL Normal 12.0-16.0 [facility] Comment on above: Performed By: #### C BC #### [facility] [address] [place] [address] Dr. Sofia Payne IG # 0.02 10e3/ul Normal 0.00-0.03 [facility] Comment on above: Performed By: #### C BC #### [facility] [address] [place] [address] Dr. Sofia Payne IG % 0.2 % Normal 0.0-0.5 [facility] Comment on above: Performed By: #### C BC #### [facility] [address] [address] [address] Sofia Payne LYMPH # 1.3 103/ul Normal 1.2-3.8 [facility] Comment on above: Performed By: #### C BC #### [facility] [address] [address] [address] Sofia Payne Lymphocytes/100 WBC (Bld) 13.8 % Critically low 20.5-60.0 [facility] Comment on above: Performed By: #### C BC #### [facility] [address] [place] [address] Dr. Sofia Payne MANUAL DIFF REQ NO Normal [facility] Comment on above: Performed By: #### C BC #### [facility] [address] [place] [address] Dr. Sofia Payne MCH (RBC) [Entitic mass] 30.3 pg Normal 26.7-34.0 [facility] Comment on above: Performed By: #### C BC #### [facility] [address] [place] [address] Dr. Sofia Payne MCHC (RBC) [Mass/Vol] 34.8 g/dL Normal 29.9-35.2 [facility] Comment on above: Performed By: #### C BC #### [facility] [address] [place] [address] Dr. Sofia Payne MCV (RBC) [Entitic vol] 86.9 fL Normal 81.0-99.0 [facility] Comment on above: Performed By: #### C BC #### [facility] [address] [place] [address] Dr. Sofia Payne MONO # 0.7 103/ul Normal 0.3-0.8 [facility] Comment on above: Performed By: #### C BC #### [facility] [address] [place] [address] Dr. Sofia Payne Monocytes/100 WBC (Bld) 7.8 % Normal 1.7-12.0 [facility] Comment on above: Performed By: #### C BC #### [facility] [address] [address] [address] Sofia Payne NEUT # 7.2 103/ul Critically high 1.4-6.5 [facility] Comment on above: Performed By: #### C BC #### [facility] [address] [place] [address] Dr. Sofia Payne Neutrophils/100 WBC (Bld) 76.2 % Critically high 43.0-75.0 [facility] Comment on above: Performed By: #### C BC #### [facility] [address] [place] [address] Dr. Sofia Payne Platelet mean volume (Bld) [Entitic vol] 11.3 fL Normal 9.5-13.5 [facility] Comment on above: Performed By: #### C BC #### [facility] [address] [place] [address] Dr. Sofia Payne PLT 166 103/ul Normal 150-450 [facility] Comment on above: Performed By: #### C BC #### [facility] [address] [place] [address] Dr. Sofia Payne RBC 4.82 106/ul Normal 4.20-5.40 [facility] Comment on above: Performed By: #### C BC #### [facility] [address] [place] [address] Dr. Sofia Payne WBC 9.4 103/ul Normal 4.0-11.0 [facility] Comment on above: Performed By: #### C BC #### [facility] [address] [place] [address] Dr. Sofia Payne [facility]on SARS-CoV-2 (COVID-19) RNA AMPARO+probe Ql (Unsp spec) Not detected Normal NOT DETECTED [facility] Comment on above: Result Comment: When diagnostic [...] for this test is supported by the [place] of Health and Human Service's declaration that [...] used). Performed By: #### C VDTBH #### [facility] [address] [place] [address] Dr. Sofia Payne ER URINE PROFILEon 2 Bilirubin Ql (U) SMALL Abnormal NEGATIVE [facility] Comment on above: Performed By: #### C BC #### [facility] [address] [place] [address] Dr. Sofia Payne Clarity (U) CLEAR Normal CLEAR [facility] Comment on above: Performed By: #### C BC #### [facility] [address] [place] [address] Dr. Sofia Payne Color (U) YELLOW Normal YELLOW [facility] Comment on above: Performed By: #### C BC #### [facility] [address] [place] [address] Dr. Sofia Payne ERUD A micrscopic examination will be performed if indicated. Normal [facility] Comment on above: Performed By: #### C BC #### [facility] [address] [place] [address] Dr. Sofia Payne Glucose Ql (U) Negative Normal NEGATIVE [facility] Comment on above: Performed By: #### C BC #### [facility] [address] [place] [address] Dr. Sofia Payne Hemoglobin Ql (U) Negative Normal NEGATIVE [facility] Comment on above: Performed By: #### C BC #### [facility] [address] [place] [address] Dr. Sofia Payne Ketones Ql (U) 15 mg/dl Abnormal NEGATIVE [facility] Comment on above: Performed By: #### C BC #### [facility] [address] [place] [address] Dr. Sofia Payne LEUKOCYTES TRACE Abnormal NEGATIVE [facility] Comment on above: Performed By: #### C BC #### [facility] [address] [place] [address] Dr. Sofia Payne Nitrite Ql (U) Negative Normal NEGATIVE [facility] Comment on above: Performed By: #### C BC #### [facility] [address] [place] [address] Dr. Sofia Payne pH (U) 5.5 [pH] Normal 5-9 [facility] Comment on above: Performed By: #### C BC #### [facility] [address] [place] [address] Dr. Sofia Payne SPEC GRAVITY >=1.030 Abnormal 1.005-<=1.025 [facility] Comment on above: Performed By: #### C BC #### [facility] [address] [place] [address] Dr. Sofia Payne UA PROTEIN Negative Normal NEGATIVE/ TRACE [facility] Comment on above: Performed By: #### C BC #### [facility] [address] [place] [address] Dr. Sofia Payne UR MICRO IND INDICATED Normal [facility] Comment on above: Performed By: #### C BC #### [facility] [address] [place] [address] Dr. Sofia Payne Urobilinogen Qn (U) 0.2 {Kristopher'U}/dL Normal 0.2 - 1. 0 [facility] Comment on above: Performed By: #### C BC #### [facility] [address] [place] [address] Dr. Sofia Payne INFLUENZA A AND B AGon 05-01 [facility] SEE BELOW Normal [facility] Comment on above: Result Comment: Nega tive for Flu A protein angiten. Infection due to Flu A cannot be ruled out. Flu A angiten in the sample may be below the detection limit of the test. Performed By: #### C BC #### [facility] [address] [place] [address] Dr. Sofia Payne [facility] SEE BELOW Normal [facility] Comment on above: Result Comment: Nega tive for Flu B protein antigen. Infection due to Flu B cannot be ruled out. Flu B antigen in the sample may be below the detection limit of the test. Performed By: #### C BC #### [facility] [address] [place] [address] Dr. Sofia Payne INFLUENZA A AG Negative Normal NEGATIVE SEE COMMENT [facility] Comment on above: Performed By: #### C BC #### [facility] [address] [place] [address] Dr. Sofia Payne INFLUENZA B AG Negative Normal NEGATIVE SEE COMMENT [facility] Comment on above: Performed By: #### C BC #### [facility] [address] [place] [address] Dr. Sofia Payne INTERNAL CONTROLS Within Normal Limits Normal [place] thin Normal Limits [facility] Comment on above: Performed By: #### C BC #### [facility] [address] [place] [address] Dr. Sofia Payne URon 05-01-2022 , QUAL Negative Normal NEGATIVE [facility] Comment on above: Performed By: #### C BC #### [facility] [address] [place] [address] Dr. Sofia Payne PROF CHEM 8 (BAS METB)on Anion gap [Moles/Vol] 8.7 mmol/L Normal [facility] Comment on above: Performed By: #### C BC #### [facility] [address] [place] [address] Dr. Sofia Payne Calcium [Mass/Vol] 8.5 mg/dL Normal 8.5-10.1 [facility] Comment on above: Performed By: #### C BC #### [facility] [address] [place] [address] Dr. Sofia Payne Chloride [Moles/Vol] 103 mmol/L Normal 98-107 [facility] Comment on above: Performed By: #### C BC #### [facility] [address] [address] [address] Sofia Payne CO2 [Moles/Vol] 27.7 mmol/L Normal 21.0-32.0 [facility] Comment on above: Performed By: #### C BC #### [facility] [address] [address] [address] Sofia Payne Creatinine [Mass/Vol] 0.80 mg/dL Normal 0.55-1.02 [facility] Comment on above: Performed By: #### C BC #### [facility] [address] [address] [address] Sofia Payne EGFR-AF CITIZEN [place] >60 Normal >=60 [facility] Comment on above: Performed By: #### C BC #### [facility] [address] [address] [address] Sofia Payne EGFR-NON AF CITIZEN OF [place] >60 Normal >=60 [facility] Comment on above: Performed By: #### C BC #### [facility] [address] [address] [address] Sofia Payne Glucose [Mass/Vol] 89 mg/dL Normal 74-106 [facility] Comment on above: Performed By: #### C BC #### [facility] [address] [address] [address] Sofia Payne Potassium [Moles/Vol] 3.9 mmol/L Normal 3.5-5.1 [facility] Comment on above: Performed By: #### C BC #### [facility] [address] [address] [address] Sofia Payne Sodium [Moles/Vol] 136 mmol/L Normal 136-145 [facility] Comment on above: Performed By: #### C BC #### [facility] [address] [place] [address] Dr. Sofia Payne Urea nitrogen [Mass/Vol] 8.0 mg/dL Normal 7.0-18.0 [facility] Comment on above: Performed By: #### C BC #### [facility] [address] [place] [address] Dr. Sofia Payne Urea nitrogen/Creatinine [Mass ratio] 10.0 mg/mg Normal [facility] Comment on above: Performed By: #### C BC #### [facility] [address] [place] [address] Dr. Sofia Payne URINE MICROSCOPIC ONLYon BACTERIA NONE SEEN Normal NONE SEEN [facility] Comment on above: Performed By: #### C BC #### [facility] [address] [place] [address] Dr. Sofia Payne Bacteria identified Cx Nom (U) NOT INDICATED Normal [facility] Comment on above: Performed By: #### C BC #### [facility] [address] [place] [address] Dr. Sofia Payne CAST NONE SEEN Normal NONE SEEN [facility] Comment on above: Performed By: #### C BC #### [facility] [address] [place] [address] Dr. Sofia Payne Crystals LM Nom (Urine sed) NONE SEEN Normal NONE SEEN [facility] Comment on above: Performed By: #### C BC #### [facility] [address] [place] [address] Dr. Sofia Payne Epithelial cells LM Ql (Urine sed) MANY Abnormal NONE SEEN /RARE [facility] Comment on above: Performed By: #### C BC #### [facility] [address] [place] [address] Dr. Sofia Payne MUCOUS TRACE Abnormal NONE SEEN [facility] Comment on above: Performed By: #### C BC #### [facility] [address] [place] [address] Dr. Sofia Payne RBC NONE SEEN Abnormal 0-2 [facility] Comment on above: Performed By: #### C BC #### [facility] [address] [place] [address] Dr. Sofia Payne WBC 2-5 Abnormal NONE SEEN [facility] Comment on above: Performed By: #### C BC #### [facility] [address] [place] [address] Dr. Sofia Payne NEFTALI by IFAon 04-25-2022 Antinuclear Antibodies, IFA Negative Normal [facility] Comment on above: Result Comment: Nega tive <1:80 Borderline 1:80 Positive >1:80 ICAP nomenclature: AC-0 For more information about Hep-2 cell patterns use ANApatterns.org, the official website for the International Consensus on Antinuclear Antibody (NEFTALI) Patterns (ICAP). Performed By: #### C BC #### [facility] [address] [place] [address] Dr. Sofia Payne ANTISTREPTOLYSIN O AB (ASO)o n 04-24-2022 Antistreptolysin O Ab 65.9 IU/mL Normal 0.0-200.0 [facility] Comment on above: Performed By: #### C BC #### [facility] [address] [place] [address] Dr. Sofia Payne RHEUMATOID FACTORon 04-24-20 RA Latex Turbid. <10.0 Normal <14.0 [facility] Comment on above: Performed By: #### C BC #### [facility] [address] [place] [address] Dr. Sofia Payne CBC AUTO DIFFon 04-23-2022 BASO # 0.0 103/ul Normal 0.0-0.1 [facility] Comment on above: Performed By: #### C BC #### [facility] [address] [place] [address] Dr. Sofia Payne Basophils/100 WBC (Bld) 0.7 % Normal 0.2-2.0 [facility] Comment on above: Performed By: #### C BC #### [facility] [address] [place] [address] Dr. Sofia Payne EO # 0.1 103/ul Normal 0.0-0.7 [facility] Comment on above: Performed By: #### C BC #### [facility] [address] [place] [address] Dr. Sofia Payne Eosinophils/100 WBC (Bld) 3.3 % Normal 0.9-7.0 [facility] Comment on above: Performed By: #### C BC #### [facility] [address] [place] [address] Dr. Sofia Payne Erythrocyte distribution width (RBC) [Ratio] 12.5 % Normal 11.0-15.0 [facility] Comment on above: Performed By: #### C BC #### [facility] [address] [place] [address] Dr. Sofia Payne Hematocrit (Bld) [Volume fraction] 40.9 % Normal 36.0-48.0 [facility] Comment on above: Performed By: #### C BC #### [facility] [address] [place] [address] Dr. Sofia Payne Hemoglobin (Bld) [Mass/Vol] 14.4 g/dL Normal 12.0-16.0 [facility] Comment on above: Performed By: #### C BC #### [facility] [address] [place] [address] Dr. Sofia Payen IG # 0.01 10e3/ul Normal 0.00-0.03 [facility] Comment on above: Performed By: #### C BC #### [facility] [address] [place] [address] Dr. Sofia Payne IG % 0.2 % Normal 0.0-0.5 [facility] Comment on above: Performed By: #### C BC #### [facility] [address] [place] [address] Dr. Sofia Payne LYMPH # 1.6 103/ul Normal 1.2-3.8 [facility] Comment on above: Performed By: #### C BC #### [facility] [address] [place] [address] Dr. Sofia Payne Lymphocytes/100 WBC (Bld) 36.3 % Normal 20.5-60.0 [facility] Comment on above: Performed By: #### C BC #### [facility] [address] [place] [address] Dr. Sofia Payne MANUAL DIFF REQ NO Normal [facility] Comment on above: Performed By: #### C BC #### [facility] [address] [place] [address] Dr. Sofia Payne MCH (RBC) [Entitic mass] 30.2 pg Normal 26.7-34.0 [facility] [facility] Comment on above: Performed By: #### C BC #### [facility] [address] [address] [address] Sofia Payne MCHC (RBC) [Mass/Vol] 35.2 g/dL Normal 29.9-35.2 [facility] Comment on above: Performed By: #### C BC #### [facility] [address] [address] [address] Sofia Payne MCV (RBC) [Entitic vol] 85.7 fL Normal 81.0-99.0 [facility] Comment on above: Performed By: #### C BC #### [facility] [address] [place] [address] Dr. Sofia Payne MONO # 0.3 103/ul Normal 0.3-0.8 [facility] Comment on above: Performed By: #### C BC #### [facility] [address] [place] [address] Dr. Sofia Payne Monocytes/100 WBC (Bld) 8.0 % Normal 1.7-12.0 [facility] Comment on above: Performed By: #### C BC #### [facility] [address] [place] [address] Dr. Sofia Payne NEUT # 2.2 103/ul Normal 1.4-6.5 [facility] Comment on above: Performed By: #### C BC #### [facility] [address] [place] [address] Dr. Sofia Payne Neutrophils/100 WBC (Bld) 51.5 % Normal 43.0-75.0 [facility] Comment on above: Performed By: #### C BC #### [facility] [address] [address] [address] Sofia Payne Platelet mean volume (Bld) [Entitic vol] 11.5 fL Normal 9.5-13.5 [facility] Comment on above: Performed By: #### C BC #### [facility] [address] [address] [address] Sofia Payne PLT 121 103/ul Critically low 150-450 [facility] Comment on above: Performed By: #### C BC #### [facility] [address] [place] [address] Dr. Sofia Payne RBC 4.77 106/ul Normal 4.20-5.40 [facility] Comment on above: Performed By: #### C BC #### [facility] [address] [place] [address] Dr. Sofia Payne WBC 4.3 103/ul Normal 4.0-11.0 [facility] Comment on above: Performed By: #### C BC #### [facility] [address] [place] [address] Dr. Sofia Payne CRPon 04-23-2022 CRP [Mass/Vol] mg/L Normal <=1.0 [facility] Comment on above: Performed By: #### C RP, CMP, TSH, URIC #### [facility] [address] [place] [address] Dr. Sofia Payne FREE T4on 04-23-2022 Free T4 [Mass/Vol] 1.01 ng/dL Normal 0.76-1.46 [facility] Comment on above: Performed By: #### F T4 #### [facility] [address] [place] [address] Dr. Sofia Payne PROF 14(COMP METB)on 022 Albumin [Mass/Vol] 3.7 g/dL Normal 3.4-5.0 [facility] Comment on above: Performed By: #### C RP, CMP, TSH, URIC #### [facility] [address] [place] [address] Dr. Sofia Payne Albumin/Globulin [Mass ratio] 1.1 {ratio} Normal [facility] Comment on above: Performed By: #### C RP, CMP, TSH, URIC #### [facility] [address] [place] [address] Dr. Sofia Payne ALP [Catalytic activity/Vol] 94 U/L Normal 46-116 [facility] Comment on above: Performed By: #### C RP, CMP, TSH, URIC #### [facility] [address] [address] [address] Sofia Payne ALT [Catalytic activity/Vol] 14 U/L Normal 14-59 [facility] Comment on above: Performed By: #### C RP, CMP, TSH, URIC #### [facility] [address] [address] [address] Sofia Payne Anion gap [Moles/Vol] 13.5 mmol/L Normal [facility] Comment on above: Performed By: #### C RP, CMP, TSH, URIC #### [facility] [address] [place] [address] Dr. Sofia Payne AST [Catalytic activity/Vol] 18 U/L Normal 15-37 [facility] Comment on above: Performed By: #### C RP, CMP, TSH, URIC #### [facility] [address] [place] [address] Dr. Sofia Payne Bilirubin [Mass/Vol] 0.3 mg/dL Normal 0.2-1.0 [facility] Comment on above: Performed By: #### C RP, CMP, TSH, URIC #### [facility] [address] [place] [address] Dr. Sofia Payne Calcium [Mass/Vol] 8.5 mg/dL Normal 8.5-10.1 [facility] Comment on above: Performed By: #### C RP, CMP, TSH, URIC #### [facility] [address] [address] [address] Sofia Payne Chloride [Moles/Vol] 104 mmol/L Normal 98-107 [facility] Comment on above: Performed By: #### C RP, CMP, TSH, URIC #### [facility] [address] [place] [address] Dr. Sofia Payne CO2 [Moles/Vol] 23.7 mmol/L Normal 21.0-32.0 [facility] Comment on above: Performed By: #### C RP, CMP, TSH, URIC #### [facility] [address] [place] [address] Dr. Sofia Payne Creatinine [Mass/Vol] 0.61 mg/dL Normal 0.55-1.02 [facility] Comment on above: Performed By: #### C RP, CMP, TSH, URIC #### [facility] [address] [address] [address] Sofia Payne EGFR-AF CITIZ[place] >60 Normal >=60 [facility] Comment on above: Performed By: #### C RP, CMP, TSH, URIC #### [facility] [address] [address] [address] Sofia Payne EGFR-NON AF CITIZEN [place] >60 Normal >=60 [facility] Comment on above: Performed By: #### C RP, CMP, TSH, URIC #### [facility] [address] [place] [address] Dr. Sofia Payne Globulin (S) [Mass/Vol] 3.5 g/dL Normal [facility] Comment on above: Performed By: #### C RP, CMP, TSH, URIC #### [facility] [address] [place] [address] Dr. Sofia Payne Glucose [Mass/Vol] 86 mg/dL Normal 74-106 [facility] Comment on above: Performed By: #### C RP, CMP, TSH, URIC #### [facility] [address] [place] [address] Dr. Sofia Payne Potassium [Moles/Vol] 4.1 mmol/L Normal 3.5-5.1 [facility] Comment on above: Performed By: #### C RP, CMP, TSH, URIC #### [facility] [address] [address] [address] Sofia Payne Protein [Mass/Vol] 7.2 g/dL Normal 6.4-8.2 [facility] Comment on above: Performed By: #### C RP, CMP, TSH, URIC #### [facility] [address] [address] [address] Sofia Payne Sodium [Moles/Vol] 137 mmol/L Normal 136-145 [facility] Comment on above: Performed By: #### C RP, CMP, TSH, URIC #### [facility] [address] [place] [address] Dr. Sofia Payne Urea nitrogen [Mass/Vol] 6.0 mg/dL Critically low 7.0-18.0 [facility] Comment on above: Performed By: #### C RP, CMP, TSH, URIC #### [facility] [address] [place] [address] Dr. Sofia Payne Urea nitrogen/Creatinine [Mass ratio] 9.8 mg/mg Normal [facility] Comment on above: Performed By: #### C RP, CMP, TSH, URIC #### [facility] [address] [place] [address] Dr. Sofia Payne SED RATE WESTERGRENon 2021 SED RATE 10 mm/hr Normal <=20 [facility] Comment on above: Performed By: #### C BC #### [facility] [address] [place] [address] Dr. Sofia Payne TSHon 04-23-2022 TSH 2.555 uIU/mL Normal 0.358-3.740 [facility] Comment on above: Performed By: #### C RP, CMP, TSH, URIC #### [facility] [address] [place] [address] Dr. Sofia Payne URIC ACID SERUMon 04-23-2022 Urate [Mass/Vol] 4.2 mg/dL Normal 2.6-6.0 [facility] Comment on above: Performed By: #### C RP, CMP, TSH, URIC #### [facility] [address] [place] [address] Dr. Sofia Payne CBC AUTO DIFFon 12-30-2021 BASO # 0.0 103/ul Normal 0.0-0.1 [facility] Comment on above: Performed By: #### C BC #### [facility] [address] [place] [address] Dr. Sofia Payne Basophils/100 WBC (Bld) 0.5 % Normal 0.2-2.0 [facility] Comment on above: Performed By: #### C BC #### [facility] [address] [place] [address] Dr. Sofia Payne EO # 0.1 103/ul Normal 0.0-0.7 [facility] Comment on above: Performed By: #### C BC #### [facility] [address] [place] [address] Dr. Sofia Payne Eosinophils/100 WBC (Bld) 3.1 % Normal 0.9-7.0 [facility] Comment on above: Performed By: #### C BC #### [facility] [address] [place] [address] Dr. Sofia Payne Erythrocyte distribution width (RBC) [Ratio] 13.1 % Normal 11.0-15.0 [facility] Comment on above: Performed By: #### C BC #### [facility] [address] [place] [address] Dr. Sofia Payne Hematocrit (Bld) [Volume fraction] 43.4 % Normal 36.0-48.0 [facility] Comment on above: Performed By: #### C BC #### [facility] [address] [place] [address] Dr. Sofia Payne Hemoglobin (Bld) [Mass/Vol] 14.8 g/dL Normal 12.0-16.0 [facility] Comment on above: Performed By: #### C BC #### [facility] [address] [place] [address] Dr. Sofia Payne IG # 0.01 10e3/ul Normal 0.00-0.03 [facility] Comment on above: Performed By: #### C BC #### [facility] [address] [place] [address] Dr. Sofia Payne IG % 0.3 % Normal 0.0-0.5 [facility] Comment on above: Performed By: #### C BC #### [facility] [address] [place] [address] Dr. Sofia Payne LYMPH # 1.6 103/ul Normal 1.2-3.8 [facility] Comment on above: Performed By: #### C BC #### [facility] [address] [place] [address] Dr. Sofia Payne Lymphocytes/100 WBC (Bld) 41.2 % Normal 20.5-60.0 [facility] Comment on above: Performed By: #### C BC #### [facility] [address] [place] [address] Dr. Sofia Payne MANUAL DIFF REQ NO Normal [facility] Comment on above: Performed By: #### C BC #### [facility] [address] [place] [address] Dr. Sofia Payne MCH (RBC) [Entitic mass] 30.0 pg Normal 26.7-34.0 [facility] Comment on above: Performed By: #### C BC #### [facility] [address] [place] [address] Dr. Sofia Payne MCHC (RBC) [Mass/Vol] 34.1 g/dL Normal 29.9-35.2 [facility] Comment on above: Performed By: #### C BC #### [facility] [address] [place] [address] Dr. Sofia Payne MCV (RBC) [Entitic vol] 88.0 fL Normal 81.0-99.0 [facility] Comment on above: Performed By: #### C BC #### [facility] [address] [place] [address] Dr. Sofia Payne MONO # 0.4 103/ul Normal 0.3-0.8 [facility] Comment on above: Performed By: #### C BC #### [facility] [address] [place] [address] Dr. Sofia Payne Monocytes/100 WBC (Bld) 9.8 % Normal 1.7-12.0 [facility] Comment on above: Performed By: #### C BC #### [facility] [address] [place] [address] Dr. Sofia Payne NEUT # 1.8 103/ul Normal 1.4-6.5 [facility] Comment on above: Performed By: #### C BC #### [facility] [address] [place] [address] Dr. Sofia Payne Neutrophils/100 WBC (Bld) 45.1 % Normal 43.0-75.0 [facility] Comment on above: Performed By: #### C BC #### [facility] [address] [place] [address] Dr. Sofia Payne Platelet mean volume (Bld) [Entitic vol] 11.9 fL Normal 9.5-13.5 [facility] Comment on above: Performed By: #### C BC #### [facility] [address] [place] [address] Dr. Sofia Payne PLT 142 103/ul Critically low 150-450 [facility] Comment on above: Performed By: #### C BC #### [facility] [address] [place] [address] Dr. Sofia Payne RBC 4.93 106/ul Normal 4.20-5.40 [facility] Comment on above: Performed By: #### C BC #### [facility] [address] [place] [address] Dr. Sofia Payne WBC 3.9 103/ul Critically low 4.0-11.0 [facility] Comment on above: Performed By: #### C BC #### [facility] [address] [place] [address] Dr. Sofia Payne CULTURE URINEon 12-30-2021 CULTURE URINE Culture Observations : HEAVY GROWTH OF MIXED GENITAL SHARAN. NO POTENTIAL PATHOGENS SEEN. Normal [facility] Comment on above: Performed By: #### C BC #### [facility] [address] [place] [address] Dr. Sofia Payne FREE T4on 12-30-2021 Free T4 [Mass/Vol] 0.98 ng/dL Normal 0.76-1.46 [facility] Comment on above: Performed By: #### C BC #### [facility] [address] [place] [address] Dr. Sofia Payne MONOon 12-30-2021 Monocytes (Bld) [#/Vol] Positive Abnormal NEGATIVE [facility] Comment on above: Result Comment: Prev iously reported as: NEGATIVE On 12/30/2021 19:06 By JAW Performed By: #### M CHERYL #### [facility] [address] [address] [address] Sofia Payne PROF 14(COMP METB)on 022 Albumin [Mass/Vol] 4.1 g/dL Normal 3.4-5.0 [facility] Comment on above: Performed By: #### C BC #### [facility] [address] [place] [address] Dr. Sofia Payne Albumin/Globulin [Mass ratio] 1.2 {ratio} Normal [facility] Comment on above: Performed By: #### C BC #### [facility] [address] [place] [address] Dr. Sofia Payne ALP [Catalytic activity/Vol] 103 U/L Normal 46-116 [facility] Comment on above: Performed By: #### C BC #### [facility] [address] [place] [address] Dr. Sofia Payne ALT [Catalytic activity/Vol] 88 U/L Critically high 14-59 [facility] Comment on above: Performed By: #### C BC #### [facility] [address] [place] [address] Dr. Sofia Payne Anion gap [Moles/Vol] 14.0 mmol/L Normal [facility] Comment on above: Performed By: #### C BC #### [facility] [address] [place] [address] Dr. Sofia Payne AST [Catalytic activity/Vol] 24 U/L Normal 15-37 [facility] Comment on above: Performed By: #### C BC #### [facility] [address] [place] [address] Dr. Sofia Payne Bilirubin [Mass/Vol] 0.3 mg/dL Normal 0.2-1.0 [facility] Comment on above: Performed By: #### C BC #### [facility] [address] [place] [address] Dr. Sofia Payne Calcium [Mass/Vol] 9.2 mg/dL Normal 8.5-10.1 [facility] Comment on above: Performed By: #### C BC #### [facility] [address] [place] [address] Dr. Sofia Payne Chloride [Moles/Vol] 105 mmol/L Normal 98-107 [facility] Comment on above: Performed By: #### C BC #### [facility] [address] [address] [address] Sofia Payne CO2 [Moles/Vol] 25.4 mmol/L Normal 21.0-32.0 [facility] Comment on above: Performed By: #### C BC #### [facility] [address] [place] [address] Dr. Sofia Payne Creatinine [Mass/Vol] 0.74 mg/dL Normal 0.55-1.02 [facility] Comment on above: Performed By: #### C BC #### [facility] [address] [place] [address] Dr. Sofia Payne EGFR-AF [place]IZ[place] >60 Normal >=60 [facility] Comment on above: Performed By: #### C BC #### [facility] [address] [place] [address] Dr. Sofia Payne EGFR-NON AF [place]IZ[place] >60 Normal >=60 [facility] Comment on above: Performed By: #### C BC #### [facility] [address] [place] [address] Dr. Sofia Payne Globulin (S) [Mass/Vol] 3.3 g/dL Normal [facility] Comment on above: Performed By: #### C BC #### [facility] [address] [place] [address] Dr. Sofia Payne Glucose [Mass/Vol] 96 mg/dL Normal 74-106 [facility] Comment on above: Performed By: #### C BC #### [facility] [address] [place] [address] Dr. Sofia Payne Potassium [Moles/Vol] 4.4 mmol/L Normal 3.5-5.1 [facility] Comment on above: Performed By: #### C BC #### [facility] [address] [place] [address] Dr. Sofia Payne Protein [Mass/Vol] 7.4 g/dL Normal 6.4-8.2 [facility] Comment on above: Performed By: #### C BC #### [facility] [address] [place] [address] Dr. Sofia Payne Sodium [Moles/Vol] 140 mmol/L Normal 136-145 [facility] Comment on above: Performed By: #### C BC #### [facility] [address] [place] [address] Dr. Sofia Payne Urea nitrogen [Mass/Vol] 10.0 mg/dL Normal 7.0-18.0 [facility] Comment on above: Performed By: #### C BC #### [facility] [address] [place] [address] Dr. Sofia Payne Urea nitrogen/Creatinine [Mass ratio] 13.5 mg/mg Normal [facility] Comment on above: Performed By: #### C BC #### [facility] [address] [place] [address] Dr. Sofia Payne TSHon 12-30-2021 TSH 1.676 uIU/mL Normal 0.358-3.740 [facility] Comment on above: Performed By: #### C BC #### [facility] [address] [place] [address] Dr. Sofia Payne UA RANDOM W/MICROSCOPICon AMORPHOUS CRYSTALS FEW Normal [facility] Comment on above: Performed By: #### C BC #### [facility] [address] [place] [address] Dr. Sofia Payne BACTERIA MODERATE Abnormal NONE SEEN [facility] Comment on above: Performed By: #### C BC #### [facility] [address] [place] [address] Dr. Sofia Payne Bilirubin Ql (U) Negative Normal NEGATIVE [facility] Comment on above: Performed By: #### C BC #### [facility] [address] [place] [address] Dr. Sofia Payne CAST NONE SEEN Normal NONE SEEN [facility] Comment on above: Performed By: #### C BC #### [facility] [address] [address] [address] Sofia Payne Clarity (U) SL CLOUDY Abnormal CLEAR [facility] Comment on above: Performed By: #### C BC #### [facility] [address] [place] [address] Dr. Sofia Payne Color (U) YELLOW Normal YELLOW [facility] Comment on above: Performed By: #### C BC #### [facility] [address] [address] [address] Sofia Payne Crystals LM Nom (Urine sed) SEEN Abnormal NONE SEEN [facility] Comment on above: Performed By: #### C BC #### [facility] [address] [place] [address] Dr. Sofia Payne Epithelial cells LM Ql (Urine sed) FEW Abnormal NONE SEEN /RARE [facility] Comment on above: Performed By: #### C BC #### [facility] [address] [place] [address] Dr. Sofia Payne Glucose Ql (U) Negative Normal NEGATIVE [facility] Comment on above: Performed By: #### C BC #### [facility] [address] [place] [address] Dr. Sofia Payne Hemoglobin Ql (U) MODERATE Abnormal NEGATIVE [facility] Comment on above: Performed By: #### C BC #### [facility] [address] [place] [address] Dr. Sofia Payne Ketones Ql (U) Negative Normal NEGATIVE [facility] Comment on above: Performed By: #### C BC #### [facility] [address] [place] [address] Dr. Sofia Payne LEUKOCYTES SMALL Abnormal NEGATIVE [facility] Comment on above: Performed By: #### C BC #### [facility] [address] [place] [address] Dr. Sofia Payne MUCOUS NONE SEEN Normal NONE SEEN [facility] Comment on above: Performed By: #### C BC #### [facility] [address] [place] [address] Dr. Sofia Payne Nitrite Ql (U) Negative Normal NEGATIVE [facility] Comment on above: Performed By: #### C BC #### [facility] [address] [place] [address] Dr. Sofia Payne pH (U) 6.0 [pH] Normal 5-9 [facility] Comment on above: Performed By: #### C BC #### [facility] [address] [place] [address] Dr. Sofia Payne RBC 10-20 Abnormal 0-2 [facility] Comment on above: Performed By: #### C BC #### [facility] [address] [place] [address] Dr. Sofia Payne SPEC GRAVITY >=1.030 Abnormal 1.005-<=1.025 [facility] Comment on above: Performed By: #### C BC #### [facility] [address] [place] [address] Dr. Sofia Payne UA PROTEIN Negative Normal NEGATIVE/ TRACE [facility] Comment on above: Performed By: #### C BC #### [facility] [address] [place] [address] Dr. Sofia Payne Urobilinogen Qn (U) 0.2 {Kristopher'U}/dL Normal 0.2 - 1. 0 [facility] Comment on above: Performed By: #### C BC #### [facility] [address] [place] [address] Dr. Sofia Payne WBC 5-10 Abnormal NONE SEEN [facility] Comment on above: Performed By: #### C BC #### [facility] [address] [place] [address] Dr. Sofia Payne CBC W MANUAL DIFFon 12-25-19 22 ATYPICAL LYMPH # Normal [facility] Comment on above: Performed By: #### C BC #### [facility] [address] [place] [address] Dr. Sofia Payne ATYPICAL LYMPH % Normal [facility] Comment on above: Performed By: #### C BC #### [facility] [address] [place] [address] Dr. Sofia Payne BAND # 0.1 103/ul Normal 0.0-0.3 [facility] Comment on above: Performed By: #### C BC #### [facility] [address] [place] [address] Dr. Sofia Payne BAND % 2 % Normal 0-5 [facility] Comment on above: Performed By: #### C BC #### [facility] [address] [place] [address] Dr. Sofia Payne BASOM # 0.00 103/ul Normal 0.00-0.10 [facility] Comment on above: Performed By: #### C BC #### [facility] [address] [place] [address] Dr. Sofia Payne BASOM % 0.0 % Critically low 0.2-2.0 [facility] Comment on above: Performed By: #### C BC #### [facility] [address] [place] [address] Dr. Sofia Payne BLAST # Normal [facility] Comment on above: Performed By: #### C BC #### [facility] [address] [place] [address] Dr. Sofia Payne BLAST % Normal [facility] Comment on above: Performed By: #### C BC #### [facility] [address] [place] [address] Dr. Sofia Payne CORRECTED WBC Normal 4.0-11.0 [facility] Comment on above: Performed By: #### C BC #### [facility] [address] [place] [address] Dr. Sofia Payne EOS # 0.00 103/ul Normal 0.00-0.70 [facility] Comment on above: Performed By: #### C BC #### [facility] [address] [place] [address] Dr. Sofia Payne EOS% 0.0 % Critically low 0.9-7.0 [facility] Comment on above: Performed By: #### C BC #### [facility] [address] [place] [address] Dr. Sofia Payne HCT 40.9 % Normal 36.0-48.0 [facility] Comment on above: Performed By: #### C BC #### [facility] [address] [address] [address] Sofia Payne HGB 13.8 g/dl Normal 12.0-16.0 [facility] Comment on above: Performed By: #### C BC #### [facility] [address] [place] [address] Dr. Sofia Payne LYMPHM # 0.43 103/ul Critically low 1.20-3.80 [facility] Comment on above: Performed By: #### C BC #### [facility] [address] [place] [address] Dr. Sofia Payne LYMPHM% 15.0 % Critically low 20.5-60.0 [facility] Comment on above: Performed By: #### C BC #### [facility] [address] [place] [address] Dr. Sofia Payne MCH 30.4 pg Normal 26.7-34.0 [facility] Comment on above: Performed By: #### C BC #### [facility] [address] [place] [address] Dr. Sofia Payne MCHC 33.7 g/dl Normal 29.9-35.2 [facility] Comment on above: Performed By: #### C BC #### [facility] [address] [place] [address] Dr. Sofia Payne MCV 90.1 fL Normal 81.0-99.0 [facility] Comment on above: Performed By: #### C BC #### [facility] [address] [place] [address] Dr. Sofia Payne METAMYELOCYTE # Normal [facility] [place] [facility] Comment on above: Performed By: #### C BC #### [facility] [address] [place] [address] Dr. Sofia Payne METAMYELOCYTE % Normal [facility] [place] [facility] Comment on above: Performed By: #### C BC #### [facility] [address] [place] [address] Dr. Sofia Payne MONOM# 0.41 103/ul Normal 0.30-0.80 [facility] Comment on above: Performed By: #### C BC #### [facility] [address] [address] [address] Sofia Payne MONOM% 14.0 % Critically high 1.7-12.0 [facility] Comment on above: Performed By: #### C BC #### [facility] [address] [address] [address] Sofia Payne MPV 11.0 fL Normal 9.5-13.5 [facility] Comment on above: Performed By: #### C BC #### [facility] [address] [place] [address] Dr. Sofia Payne MYELOCYTE # Normal [facility] Comment on above: Performed By: #### C BC #### [facility] [address] [place] [address] Dr. Sofia Payne MYELOCYTE % Normal [facility] Comment on above: Performed By: #### C BC #### [facility] [address] [place] [address] Dr. Sofia Payne NRBC Normal [facility] Comment on above: Performed By: #### C BC #### [facility] [address] [place] [address] Dr. Sofia Payne PLT 98 103/ul Critically low 150-450 [facility] Comment on above: Performed By: #### C BC #### [facility] [address] [place] [address] Dr. Sofia Payne RBC 4.54 106/ul Normal 4.20-5.40 [facility] Comment on above: Performed By: #### C BC #### [facility] [address] [place] [address] Dr. Sofia Payne RDW 13.1 % Normal 11.0-15.0 [facility] Comment on above: Performed By: #### C BC #### [facility] [address] [place] [address] Dr. Sofia Payne SEG # 2.00 103/ul Normal 1.40-6.50 [facility] Comment on above: Performed By: #### C BC #### [facility] [address] [place], [place] [address] Dr. Sofia Payne SEG % 69.0 % Normal 43.0-75.0 [facility] Comment on above: Performed By: #### C BC #### [facility] [address] [place], [place] [address] Dr. Sofia Payne WBC 2.9 103/ul Critically low 4.0-11.0 [facility] Comment on above: Performed By: #### C BC #### [facility] [address] [place], [place] [address] ABD/PELVIS WO CONon [...] by: EMMANUEL ROMAN Date: 2021-12-24 12:09 Normal [facility] CULTURE URINEon 12-24-2021 CULTURE URINE Culture Observations : NO GROWTH. Normal [facility] Comment on above: Performed By: #### C BC #### [facility] [address] [place] [address] Dr. Sofia Payne ER URINE PROFILEon 2 Bilirubin Ql (U) SMALL Abnormal NEGATIVE [facility] Comment on above: Performed By: #### C BC #### [facility] [address] [place] [address] Dr. Sofia Payne Clarity (U) SL CLOUDY Abnormal CLEAR [facility] Comment on above: Performed By: #### C BC #### [facility] [address] [place] [address] Dr. Sofia Payne Color (U) DK. ORANGE Abnormal YELLOW [facility] Comment on above: Performed By: #### C BC #### [facility] [address] [place] [address] Dr. Sofia DIAS A micrscopic examination will be performed if indicated. Normal [facility] Comment on above: Performed By: #### C BC #### [facility] [address] [place] [address] Dr. Sofia Payne Glucose Ql (U) Negative Normal NEGATIVE [facility] Comment on above: Performed By: #### C BC #### [facility] [address] [place] [address] Dr. Sofia Payne Hemoglobin Ql (U) LARGE Abnormal NEGATIVE [facility] Comment on above: Performed By: #### C BC #### [facility] [address] [place] [address] Dr. Sofia Payne Ketones Ql (U) 40 mg/dl Abnormal NEGATIVE [facility] Comment on above: Performed By: #### C BC #### [facility] [address] [place] [address] Dr. Sofia Payne LEUKOCYTES Negative Normal NEGATIVE [facility] Comment on above: Performed By: #### C BC #### [facility] [address] [place] [address] Dr. Sofia Payne Nitrite Ql (U) Negative Normal NEGATIVE [facility] Comment on above: Performed By: #### C BC #### [facility] [address] [place] [address] Dr. Sofia Payne pH (U) 5.5 [pH] Normal 5-9 [facility] Comment on above: Performed By: #### C BC #### [facility] [address] [place] [address] Dr. Sofia Payne Protein (U) [Mass/Vol] 100 mg/dL Abnormal NEGATIVE/ TRACE [facility] Comment on above: Performed By: #### C BC #### [facility] [address] [place] [address] Dr. Sofia Payne SPEC GRAVITY >=1.030 Abnormal 1.005-<=1.025 [facility] Comment on above: Performed By: #### C BC #### [facility] [address] [place] [address] Dr. Sofia Payne UR MICRO IND INDICATED Normal [facility] Comment on above: Performed By: #### C BC #### [facility] [address] [place] [address] Dr. Sofia Payne Urobilinogen Qn (U) 1.0 {Kristopher'U}/dL Normal 0.2 - 1. 0 [facility] Comment on above: Performed By: #### C BC #### [facility] [address] [place] [address] Dr. Sofia Payne PROF 14(COMP METB)on 022 Albumin [Mass/Vol] 3.8 g/dL Normal 3.4-5.0 [facility] Comment on above: Performed By: #### C BC #### [facility] [address] [place] [address] Dr. Sofia Payne Albumin/Globulin [Mass ratio] 1.2 {ratio} Normal [facility] Comment on above: Performed By: #### C BC #### [facility] [address] [place] [address] Dr. Sofia Payne ALP [Catalytic activity/Vol] 78 U/L Normal 46-116 [facility] Comment on above: Performed By: #### C BC #### [facility] [address] [place] [address] Dr. Sofia Payne ALT [Catalytic activity/Vol] 9 U/L Critically low 14-59 [facility] Comment on above: Performed By: #### C BC #### [facility] [address] [address] [address] Sofia Payne Anion gap [Moles/Vol] 13.4 mmol/L Normal [facility] Comment on above: Performed By: #### C BC #### [facility] [address] [address] [address] Sofia Payne AST [Catalytic activity/Vol] 13 U/L Critically low 15-37 [facility] Comment on above: Performed By: #### C BC #### [facility] [address] [address] [address] Sofia Payne Bilirubin [Mass/Vol] 0.2 mg/dL Normal 0.2-1.0 [facility] Comment on above: Performed By: #### C BC #### [facility] [address] [address] [address] Sofia Payne Calcium [Mass/Vol] 8.2 mg/dL Critically low 8.5-10.1 [facility] Comment on above: Performed By: #### C BC #### [facility] [address] [place] [address] Dr. Sofia Payne Chloride [Moles/Vol] 106 mmol/L Normal 98-107 [facility] Comment on above: Performed By: #### C BC #### [facility] [address] [address] [address] Sofia Payne CO2 [Moles/Vol] 24.9 mmol/L Normal 21.0-32.0 [facility] Comment on above: Performed By: #### C BC #### [facility] [address] [address] [address] Sofia Payne Creatinine [Mass/Vol] 0.93 mg/dL Normal 0.55-1.02 [facility] Comment on above: Performed By: #### C BC #### [facility] [address] [address] [address] Sofia Payne EGFR-AF CITIZEN [place] >60 Normal >=60 [facility] Comment on above: Performed By: #### C BC #### [facility] [address] [address] [address] Sofia Payne EGFR-NON AF CITIZEN OF [place] >60 Normal >=60 [facility] Comment on above: Performed By: #### C BC #### [facility] [address] [address] [address] Sofia Payne Globulin (S) [Mass/Vol] 3.3 g/dL Normal [facility] Comment on above: Performed By: #### C BC #### [facility] [address] [address] [address] Sofia Payne Glucose [Mass/Vol] 94 mg/dL Normal 74-106 [facility] Comment on above: Performed By: #### C BC #### [facility] [address] [address] [address] Sofia Payne Potassium [Moles/Vol] 4.3 mmol/L Normal 3.5-5.1 [facility] Comment on above: Performed By: #### C BC #### [facility] [address] [address] [address] Sofia Payne Protein [Mass/Vol] 7.1 g/dL Normal 6.4-8.2 [facility] Comment on above: Performed By: #### C BC #### [facility] [address] [address] [address] Sofia Payne Sodium [Moles/Vol] 140 mmol/L Normal 136-145 [facility] Comment on above: Performed By: #### C BC #### [facility] [address] [address] [address] Sofia Payne Urea nitrogen [Mass/Vol] 7.0 mg/dL Normal 7.0-18.0 [facility] Comment on above: Performed By: #### C BC #### [facility] [address] [address] [address] Sofia Payne Urea nitrogen/Creatinine [Mass ratio] 7.5 mg/mg Normal [facility] Comment on above: Performed By: #### C BC #### [facility] [address] [place] [address] Dr. Sofia Payne URINE MICROSCOPIC ONLYon BACTERIA SMALL Abnormal NONE SEEN [facility] Comment on above: Performed By: #### C BC #### [facility] [address] [place] [address] Dr. Sofia Payne Bacteria identified Cx Nom (U) INDICATED Normal [facility] Comment on above: Performed By: #### C BC #### [facility] [address] [place] [address] Dr. Sofia Payne CAST NONE SEEN Normal NONE SEEN [facility] Comment on above: Performed By: #### C BC #### [facility] [address] [place] [address] Dr. Sofia Payne Crystals LM Nom (Urine sed) NONE SEEN Normal NONE SEEN [facility] Comment on above: Performed By: #### C BC #### [facility] [address] [place] [address] Dr. Sofia Payne Epithelial cells LM Ql (Urine sed) FEW Abnormal NONE SEEN /RARE [facility] Comment on above: Performed By: #### C BC #### [facility] [address] [place] [address] Dr. Sofia Payne MUCOUS NONE SEEN Normal NONE SEEN [facility] Comment on above: Performed By: #### C BC #### [facility] [address] [place] [address] Dr. Sofia Payne RBC (U) [#/Vol] /uL Abnormal 0-2 [facility] Comment on above: Performed By: #### C BC #### [facility] [address] [place] [address] Dr. Sofia Payne WBC 2-5 Abnormal NONE SEEN [facility] Comment on above: Performed By: #### C BC #### [facility] [address] [place] [address] Dr. Sofia Payne Covid-19 PCR (CVDTB)on SARS-CoV-2 (COVID-19) RNA AMPARO+probe Ql (Unsp spec) Not detected Normal NOT DETECTED [facility] Comment on above: Result Comment: This test is not yet approved or cleared by the [place] FDA. When there are no FDA-approved or cleared tests available, and other criteria are met, FDA can make tests available under an emergency access mechanism called an Emergency Use Authorization (EUA). The EUA for this test is supported by the [place] of Health and Human Service's (HHS's) declaration [...] SARS-CoV-2. Performed By: #### C BC #### [facility] [address] [place] [address] Dr. Sofia Payne COVID/FLU/RSV RT-PCRon 12-22 SARS-CoV-2 (COVID-19) RNA AMPARO+probe Ql (Unsp spec) Negative [facility] Other COVID/FLU/RSV RT-PCR Negative [facility] Other COVID/FLU/RSV RT-PCR [facility] Other Mononucleosis Test, Qualon 0 12-22-2021 Heterophile Ab LA Ql (S) Negative [facility] Other COVID Quick Testingon 2021 Result Negative [facility] Other Quick Strepon 06-04-2021 S. pyogenes Org specific cx Ql (Throat) Negative [facility] Other Quick Strep [facility] Other RAD - Ultrasound Reporton RAD - Ultrasound Report [id number] .00CD:127 [facility] ED Note-Physicianon 02-22-20 20 ED Note-Physician [id number]# 1.00CD:127 [facility] ED Note-Physician [id number]# 1.00CD:127 [facility] ED Note-Physician [id number]# 1.00CD:127 [facility] Physician Referralon 020 Physician Referral [id number]. 00CD:127 [facility] Provider Letteron 02-15-2020 Provider Letter February 15, 2020 LINA ALCANTAR [address] [place] [id number] LINA ALCANTAR 1990 Dear Lina Alcantar, You [...] [facility] [address], [place] [address] [facility] Formson 02-03-2020 Forms [id number] .00CD:127 [facility] Ambulatory Clinical Summaryo n 02-01-2020 Ambulatory Clinical Summary {[id number]}CD:[id number] [facility] Patient Educationon 02-01-20 Patient Education Family Medicine [...] Document Reviewed: 06/18/2012 ExitCare? Patient Information ?2013 [employer]. 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 Bhagat. Pt states that since having her son 5 months ago and she has had 4. Last UTI was 01/14/20 and was at [facility]. This has been ongoing since she [...] of Present Illness Reviewed UA, PVR, and MENTAL HEALTH NURSE paperwork. There have been no associated fever [...] (N39.0: Urinary tract infection, site not specified) MENTAL HEALTH NURSE referred by Dr. Bhagat for recurrent UTIs. [...] LUDWIG, Torres Warner [address] [place] [phone] Additional Instructions: Patient Education Urinary Tract Infection [...] Protein Urine Dipstick: Negative (02/01/20 09:13:00) Specific [place] Urine Dipstick: 1.025 (02/01/20 09:13:00) Urine Color Urine Dipstick: Yellow (02/01/20 09:13:00) Urobilinogen Urine Dipstick: Normal 0.2-1 EU/dl (02/01/20 09:13:00) pH Urine Dipstick: 5.5 (02/01/20 09:13:00) Normal [facility] Comment on above: Result Comment: Elec tronically Signed By: Christo LUDWIG, Torres Warner\.br\Date and Time Signed: 02/01/20 09:52 EDT\.br\Electronically Co-Signed By: Dolly Duffy MA\.br\Date and Time Co-Signed: 02/01/20 09:29 EDT Vital Signs Date Time Vital Sign Value Performing Clinician Facility 10-23-2022 10:15-0400 Body temperature 99.5 [degF] [facility] Spencer [facility] 10-23-2022 10:15-0400 Diastolic blood pressure 60 mm[Hg] Belen Spencer DO Work Phone: [facility] 10-23-2022 10:15-0400 Heart rate 94 /min Belen Spencer DO Work Phone: [facility] 10-23-2022 10:15-0400 Systolic blood pressure 114 mm[Hg] Belen Spencer DO Work Phone: [facility] 10-23-2022 08:48-0400 SaO2% (BldA) [Mass fraction] 98 % Belen Spencer DO Work Phone: [employer] 10-23-2022 08:27-0400 Body mass index (BMI) [Ratio] 32.61 kg/m2 Belen Spencer DO Work Phone: [facility] [employer] 10-23-2022 08:27-0400 Body weight 86.18 kg Belen Spencer DO Work Phone: [facility] [employer] 10-23-2022 08:27-0400 Respiratory rate 16 /min Belen Spencer DO Work Phone: [facility] [employer] 10-22-2022 09:47-0400 Diastolic blood pressure 70 mm[Hg] Denisse Ann MD Work Phone: [facility] [employer] 10-22-2022 09:47-0400 Systolic blood pressure 105 mm[Hg] Denisse Ann MD Work Phone: [facility] [employer] 10-22-2022 09:42-0400 Body height 162.6 cm Denisse Ann MD Work Phone: [facility] [employer] 10-22-2022 09:42-0400 Body mass index (BMI) [Ratio] 32.61 kg/m2 Denisse Ann MD Work Phone: [facility] [employer] 10-22-2022 09:42-0400 Body temperature 100.09 [degF] Denisse Ann MD Work Phone: [facility] [employer] 10-22-2022 09:42-0400 Body weight 86.18 kg Denisse Ann MD Work Phone: [employer] 10-22-2022 09:42-0400 Heart rate 97 /min Denisse Ann MD Work Phone: [facility] [employer] 10-22-2022 09:42-0400 Respiratory rate 18 /min Denisse Ann MD Work Phone: [facility] [employer] 10-22-2022 09:42-0400 SaO2% (BldA) [Mass fraction] 98 % Denisse Ann MD Work Phone: [facility] 12-22-2021 13:10-0400 Body height 162.56 cm Lissette Shin Other [facility] Other 12-22-2021 13:10-0400 Body temperature 101.2 [degF] Lissette Shin Other [facility] Other 12-22-2021 13:10-0400 Respiratory rate 18 /min Lissette Shin Other [facility] Other 12-22-2021 13:10-0400 SaO2% (BldA) [Mass fraction] 98 % Lissette Shin Other [facility] Other 06-04-2021 18:00-0500 Body height 162.56 cm Lissette Ginty Other [facility] Other 06-04-2021 18:00-0500 Body mass index (BMI) [Ratio] 30.89 kg/m2 Lissette Ginty Other [facility] Other 06-04-2021 18:00-0500 Body temperature 97.3 [degF] Lissette Ginty Other [facility] Other 06-04-2021 18:00-0500 Body weight 81.65 kg Lissette Ginty Other [facility] Other 06-04-2021 18:00-0500 Respiratory rate 18 /min Lissette Ginty Other [facility] Other 06-04-2021 18:00-0500 SaO2% (BldA) [Mass fraction] 98 % Lissette Ginty Other [facility] [employer] Other Encounters Encounter Date Encounter Type Care Provider Facility Start: 06-23-2023 End: 06-23-2023 ambulatory JOHN RAJPUT Not Available Start: 05-26-2023 End: 05-26-2023 Emergency department patient visit [facility] Start: 05-20-2023 End: 05-20-2023 ambulatory MER[facility] AICHHOLZ Not Available Start: 10-23-2022 End: 10-23-2022 Emergency department patient visit BELEN Merrill SPENCER [facility] Start: 10-23-2022 End: 10-23-2022 Emergency department patient visit Belen Spencer DO Work Phone: [facility] ED Comment on above: Viral syndrome (Prim waqas Dx); Migraine without aura and with status migrainosus, not intractable; Sinus congestion Start: 10-22-2022 End: 10-22-2022 Emergency department patient visit [facility] Start: 10-22-2022 End: 10-22-2022 Emergency department patient visit Denisse Ann MD Work Phone: [facility] ED Comment on above: Nonintractable heada audie, unspecified chronicity pattern, unspecified headache type (Primary Dx); Acute recurrent sinusitis, unspecified location Start: 07-19-2022 End: 07-19-2022 ambulatory 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 [facility] AICHHOLZ Facility:[facility] Start: 05-20-2022 End: 05-20-2022 ambulatory [employer]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 MER[facility] AICHHOLZ Facility:[facility] Start: 05-01-2022 End: 05-01-2022 ambulatory [employer]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 [facility] AICHHOLZ Facility:[facility] Start: 04-23-2022 End: 04-24-2022 ambulatory [employer]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 MER[facility] AICHHOLZ Facility:[facility] Start: 02-08-2022 End: 02-08-2022 ambulatory CON[employer]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 [facility] AICHHOLZ Facility:[facility] Start: 12-31-2021 End: 12-31-2021 ambulatory [employer]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 [facility] AICHHOLZ Facility:[facility] Start: 12-30-2021 End: 12-31-2021 ambulatory 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[employer]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 [facility] AICHHOLZ Facility:[facility] Start: 12-24-2021 End: 12-24-2021 ambulatory CRISTINO GRIJALVA Facility:[facility] Start: 12-23-2021 End: 12-23-2021 ambulatory CRISTINO GRIJALVA Facility:[facility] Start: 12-22-2021 End: 12-22-2021 ambulatory Lissette Shin Other [facility] Other Start: 12-22-2021 Office outpatient vi sit 25 minutes Lissette Shin [facility] Start: 06-04-2021 End: 06-04-2021 ambulatory Lissette Ginty Other [facility] Other Start: 06-04-2021 Office outpatient vi sit [...] Influenza vaccination Flu vacc ine (Season Ended) [facility] Start: 11-02-2021 Screening for malign ant neoplasm of cervix [facility] Start: 11-02-2012 Screening for malign ant neoplasm of cervix Pap smear [facility] Start: 11-02-2010 DTaP/Tdap/Td vaccine (1 - Tdap) DTaP/Tdap/Td vaccine (1 - Tdap) [facility] Start: 11-02-2009 Hepatitis C screening Hepatitis C sc reen [facility] Start: 11-02-2006 HIV screening HIV screen [facility] Start: 2003 Depression Screen Depression Screen [facility] Start: 11-02-1997 Pneumococcal 0-64 ye ars Vaccine (1 - PCV) Pneumococcal 0-64 years Vaccine (1 - PCV) [facility] Start: 11-02-1992 Varicella vaccine (1 of 2 - 2-dose childhood series) Varicella vaccine (1 of 2 - 2-dose childhood series) [facility] Start: 05[birth year]-1992 COVID-19 Vaccine (#1) COVID-19 Vacci ne (#1) [facility] End: 10-23-2022 Respiratory Panel, Molecular, with COVID-19 (Restricted: peds pts or suitable admitted adults) [facility] Work Phone: Comment on above: One Time for 1 Occur rences starting 10/23/2022 until 10/23/2022 Payers Date Payer Category Payer Unknown [id number]. [id number] 1991 Unknown [id number] 2.16.84 0.1.729474.3.579.2.593 1991 Unknown [id number] 2.16.84 0.1.739590.3.579.2.593 1991 Unknown [id number] 2.16.84 0.1.341226.3.579.2.593 1991 Unknown [id number] 2.16.84 0.1.822009.3.579.2.593 1991 Unknown [id number] 2.16.84 0.1.961507.3.579.2.593 1991 Unknown [id number] 2.16.84 0.1.174767.3.579.2.593 1991 Unknown [id number] 2.16.84 0.1.503501.3.579.2.593 1991 Unknown [id number] 2.16.84 0.1.472140.3.579.2.593 1991 Unknown [id number] 2.16.84 0.1.229308.3.579.2.593 1991 Unknown [id number] 2.16.8 40.1.841684.3.579.2.173 1991 Unknown [id number] 2.16.8 40.1.690315.3.579.2.173 1991 Unknown [id number] 2.16.8 40.1.729466.3.579.2.173 1991 Unknown [id number] 2.16.84 0.1.259429.3.579.2.1259 1991 Unknown [id number] 2.16.840 .1.125624.3.579.2.1259 1958 Medicaid [id number] 1958 Unknown [id number] 2.1 [id number] Social History Date Type Detail Facility Unknown if ever smoked [facility] Other Sex Assigned At Sex Assigned At Bir th [facility] Other Start: [facility]-2022 [facility] Phone: History of tobacco use Cigarette Smoker [facility] Phone: Start: 10-22-2022 Tobacco use and exposure Smokeless tobacco non-user [facility] Phone: Start: 10-22-2022 End: 10-23-2022 History SDOH Alcohol Frequency 1 [facility] Phone: Start: 1990 Sex Assigned At Not on file [facility] Phone: Start: 10-23-2022 History SDOH [facility] 10-23-2022 Discharge InstructionsAttachments Note Date & Type Note Facility 10-23-2022 [facility] Discharg e instructions Belen Spencer DO [...] us to take care of you at [facility]. In the next few days you may receive a survey by mail or e-mail asking about the care you received during this visit. Please complete this if you are able, as this feedback helps us provide the best care possible. The following attachments cannot be sent through Care Everywhere.Migraine Headache (Swiss)documented in this encounter [facility] Hospital Discharge instructions 10-22-2022 Discharge InstructionsAttachments Note Date & Type Note Facility 10-22-2022 [facility] Discharg e instructions Denisse Ann MD - 10/22/2022 11:37 AM EDT Continue current medications as prescribed. Take Augmentin as directed until complete. Make sure that you stay well-hydrated. Tylenol and or Motrin as needed for pain at home. Use [place] in place of Tylenol for pain not [...] be sent through Care Everywhere.Acute Sinusitis: Video (Swiss)Headache (Swiss)documented in this encounter [facility] Phone: Evaluation note 12-22-2021 Note Date & Type Note Facility 12-22-2021 Evaluation note Encounter Date Diagnosis Assessment Notes Nov, Fever (ICD-10 - R50.9) Nov, Viral URI (ICD-10 - J06.9) Advised patient that COVID/Influenza A/B PCR test was negative today. Yancey test negative. Advised patient that will treat [...] Nov, Fatigue, unspecified type (ICD-10 - R53.83) [facility] Other Evaluation note 06-04-2021 Note Date & [...] Patient care instructions given in writting by [facility] Care At Home document [facility] Other Evaluation note Note Date & Type Note Facility Evaluation note Diagnosis Nonintractable headache, unspecified chronicity pattern, unspecified headache type- Primary Acute recurrent sinusitis, unspecified location documented in this encounter [employer] Phone: Evaluation note Note Date & Type Note Facility Evaluation note Diagnosis Viral syndrome- Primary Unspecified viral infection, in conditions classified elsewhere and of unspecified site Migraine without aura and with status migrainosus, not intractable Migraine without aura, without mention of intractable migraine with status migrainosus Sinus congestion Other diseases of nasal cavity and sinuses documented in this encounter [employer] Phone: History general Narrative - Reported Note Date & Type Note Facility History general Narrative - Reported Type Surgical History Gallbladder 2009 Surgical History t&a Surgical History tubal ligation [facility] Other History general Narrative - Reported Note Date & Type Note Facility History general Narrative - Reported Type Surgical History Gallbladder 2009 Surgical History t&a Surgical History tubal ligation Hospitalization History see above [facility] Other Summary Purpose Family History No Family History Records FoundNo Family History Records FoundNo Family History Records FoundNo Family History Records Found Advance Directives No Advanced Directives Records FoundNo Advanced Directives Records FoundNo Advanced Directives Records FoundNo Advanced Directives Records Found Additional Source Comments INFORMATION SOURCE (unrecogn ized section and content) DATE CREATED AUTHOR 02/23/2020 Chapin Suarez [employer] [facility] DATE CREATED AUTHOR AUTHOR'S ORGANIZ ATION 08/26/2022 [facility] DATE CREATED AUTHOR AUTHOR'S ORGANIZ ATION 05/26/2023 [facility] DATE CREATED AUTHOR AUTHOR'S ORGANIZ ATION 06/24/2023 [facility] EPIC REASON FOR VISIT (unrecogniz [...] Care Teams (unrecognized sec tion and content) Shingler Relationship Specialty Start Date End Date Mani Galvan MD [address] [place] [address] PCP - General Family Medicine 10/23/22 FOR [...] BE BASED ON THE PRIMARY CLINICAL RECORDS. [employer] provides no warranty or guarantee of the accuracy or completeness of information in this document.
[2023-07-13 20:12] LABS: Age Gdln ACOG Testing Note (.); HPV Aptima Negative (Negative); IGP, Aptima HPV, rfx 16/18,45 Note (.)
== END 2023-07-08 19:47 | disposition home or self-care (01) ==
LOC: LAB 19:46
PROVIDERS: PCP Nurse Practitioner; Visit Provider Obstetrics & Gynecology
DX: Z01.419 Encounter for gynecological examination (general) (routine) without abnormal findings (principal)
CPT/HCPCS: 87624; G0145

== ENCOUNTER 2023-07-14 14:32 | Outpatient (OUT) | payer OTHER, SELFPAY ==
--- NOTE | 2023-07-14 14:53 | XR_ITS ---
[address] [address] Patient Name: LINA ALCANTAR MRN: [id number] date: 1990 Sex: F Assigned Patient Location: [facility] Current Patient Location: [facility] Accession/Order Number: [id number] Exam Date: 07/14/2023 15:00 Report Date: 07/14/2023 15:57 At the request of: JOHN RAJPUT Procedure: XR chest 2V EXAM: XR chest 2V HISTORY: Preop exam COMPARISON: 07/25/2019 TECHNIQUE: Upright PA and lateral chest x-ray FINDINGS: The heart is not enlarged and the vasculature is not distended. No acute infiltrate, effusion or pneumothorax is identified. The osseous structures are grossly intact. XR/XR chest 2V IMPRESSION: No acute infiltrate or evidence of cardiac decompensation. The overall appearance of the chest is essentially unchanged. Electronically authenticated by: MIRYAM MURRY Date: 07/14/2023 15:57
== END 2023-07-14 14:33 | disposition home or self-care (01) ==
LOC: PST 14:32
PROVIDERS: PCP Nurse Practitioner; Visit Provider Obstetrics & Gynecology
DX: Z01.810 Encounter for preprocedural cardiovascular examination (principal); N92.1 Excessive and frequent menstruation with irregular cycle; R10.2 Pelvic and perineal pain
CPT/HCPCS: 71046

== ENCOUNTER 2023-07-24 08:28 | Day surgery (SDC) | payer OTHER, SELFPAY ==
[2023-07-14 15:00] VITALS: BP 103/71; PULSE 85; RESP 16; TEMP 36.6; O2SAT 99; BMI 35.3
[2023-07-24] VITALS (11 sets, daily range): BP systolic 91–113; BP diastolic 54–63; PULSE 74–104; RESP 10–22; TEMP 36.3–36.4; O2SAT 96–99
--- OUTSIDE RECORDS SUMMARY | 2023-07-24 08:32 | XMS_ITS | CCD ---
Author Name Unknown Address [address] [place] [address] Organization [facility] Care Team Providers Care Cook Dessert Name Role Phone Lissette Lee Unavailable Lissette Shin Unavailable AICHHOLZ, TABULAR TYPIST ROSARIO Admitting Unavailable AICHHOLZ, TABULAR TYPIST ROSARIO Attending Unavailable AICHHOLZ, TABULAR TYPIST ROSARIO Primary Care Unavailable AICHHOLZ, TABULAR TYPIST ROSARIO Consulting Unavailable AICHHOLZ, TABULAR TYPIST ROSARIO Admitting Unavailable AICHHOLZ, TABULAR TYPIST ROSARIO Attending Unavailable AICHHOLZ, TABULAR TYPIST ROSARIO Primary Care Unavailable AICHHOLZ, TABULAR TYPIST ROSARIO Consulting Unavailable AICHHOLZ, TABULAR TYPIST ROSARIO Admitting Unavailable AICHHOLZ, TABULAR TYPIST ROSARIO Attending Unavailable AICHHOLZ, TABULAR TYPIST ROSARIO Primary Care Unavailable AICHHOLZ, TABULAR TYPIST ROSARIO Consulting Unavailable AICHHOLZ, TABULAR TYPIST ROSARIO Primary Care Unavailable ROBERT ONTIVEROS Consulting Unavailable ROBERT ONTIVEROS Admitting Unavailable ROBERT ONTIVEROS Attending Unavailable AICHHOLZ, TABULAR TYPIST ROSARIO Primary Care Unavailable MARICEL .GUSTAVOID Admitting Unavailable CAROLYNN ACOSTA Attending Unavailable MARICEL .GUSTAVOID Consulting Unavailable AICHHOLZ, TABULAR TYPIST ROSARIO Primary Care Unavailable MARICEL ., CAROLYNN Admitting Unavailable MARICEL .GUSTAVOID Attending Unavailable MARICEL ., CAROLYNN Consulting Unavailable AICHHOLZ, TABULAR TYPIST ROSARIO Primary Care Unavailable DR MARCY GU Admitting Unavailable SAMANTHA Vasquez, DR VIDAL Attending Unavailable Emmanuel Roman Consulting Unavailable DR MARCY GU Consulting Unavailable AICHHOLZ, TABULAR TYPIST ROSARIO Admitting Unavailable AICHHOLZ, TABULAR TYPIST ROSARIO Attending Unavailable AICHHOLZ, TABULAR TYPIST ROSARIO Primary Care Unavailable AICHHOLZ, TABULAR TYPIST ROSARIO Consulting Unavailable AICHHOLZ, TABULAR TYPIST ROSARIO Admitting Unavailable AICHHOLZ, TABULAR TYPIST ROSARIO Attending Unavailable AICHHOLZ, TABULAR TYPIST ROSARIO Primary Care Unavailable FRANCINE, CRISTINO ROSARIO Consulting Unavailable Unavailable Primary Care Provider UnavailMani Bonds MD Primary Care Provider DENISSE ANN Attending Unavailable DENISSE ANN Attending Unavailable BELEN SPENCER Attending Unavailable MANI GALVAN Primary Care Unavailable Luciano Cardona MD Primary Care Provider Francine FBI SPECIAL AGENT, Rosario Unavailable ROSARIO ESCAMILLA Attending Unavailable JOHN FRANKLIN Attending Unavailable JOHN FRANKLIN Attending Unavailable Medications Current Medications Medication Drug Class(es) Dates Sig (Normalized) Sig (Original) acetaminophen 325 mg oral tablet (7 sources) Start: 10-23-2022 acetaminophen (TYLENOL) tablet 650 mg acetaminophen (T ylenol) 325 MG tablet Take 500 mg by mouth every 4 (four) hours if needed for mild pain 0 Active take 1 tablet by emily th every eight hours as needed for pain acetaminophen (Midol) 650 MG ER tablet T katharine 650 mg by mouth every 8 (eight) hours if needed for mild pain Do not crush, chew, or split. 0 Active take 2 tablets by mo uth every six hours as needed for pain [...] ORCO) 5-325 MG per tablet 1 tablet [id number] 200 actuat albuterol 0.09 mg/actuat metered dose [...] DULoxetine 60 mg delayed release oral capsule (4 sources) Serotonin and Norepinephrine Reuptake Inhibitor Start: 05-21-2023 take 1 capsule by mouth in the morning DULoxetine (Cymbalta) [address] capsule Indications: KELI (generalized anxiety disorder) (CMS/HCC) Take 1 capsule (60 mg) by mouth in the morning. 30 capsule 3 05/21/2023 Active take 1 capsule by mouth once prasad ly DULoxetine (CYMBALTA) 60 MG extended release capsule [...] 0 Active gabapentin 300 mg oral capsule (4 sources) Anti-epileptic Agent Start: 05-21-2023 take 1 capsule by mouth in the morning gabapentin (Neurontin) 300 MG capsule Indications: Fibromyalgia Take 1 capsule (300 mg) by mouth in the morning and 1 capsule (300 mg) before bedtime. 60 capsule 3 05/21/2023 Active take 1 capsule by mouth once prasad ly gabapentin (NEURONTIN) 300 MG capsule Take 1 capsule by mouth daily. 0 Active LORazepam 0.5 mg oral tablet (2 sources) Benzodiazepine Start: 05-21-2023 take 1 tablet by mouth once LORazepam (Ativan) 0.5 MG tablet Indications: KELI (generalized anxiety disorder) (CMS/HCC) Take 1 tablet (0.5 mg) by mouth every 12 (twelve) hours if needed for anxiety 15 tablet 2 05/21/2023 Active rOPINIRole 2 mg oral tablet (1 source) Nonergot Dopamine Agonist take 1 tablet by mouth once daily at bedtime rOPINIRole HCl 2 MG 1 tablet 1 to 3 hours before bedtime Orally Once a day Active Completed/Discontinued Medications Medication Drug Class(es) Dates Sig (Normalized) Sig (Original) cephalexin 500 mg oral capsule (2 sources) Cephalosporin Antibacterial Start: 06-23-2023 End: 07-08-2023 take 1 capsule by mouth in the morning, then take 1 capsule by mouth in the evening, then take 1 capsule by mouth at bedtime cephalexin (Keflex) 500 MG capsule Indications: Nipple discharge Take 1 capsule (500 mg) by mouth in the morning and 1 capsule (500 mg) in the evening and 1 capsule (500 mg) before bedtime. Do all this for 10 days. 30 capsule 0 06/23/2023 07/08/2023 Discontinued (Therapy completed) 1 ml diphenhydrAMINE hydrochloride 50 mg/ml cartridge [...] Classification Problem Date Documented Da te Episodic/Chronic Abdominal pain (5 sources) Unspecified abdominal pain; Translations: [Pain in female pelvis] Onset: 12-24-2021 Episodic Anxiety disorders (2 sources) Generalized anxiety disorder; Translations: [Generalized anxiety disorder] Onset: 05-20-2023 05-20-2023 Chronic Headache; including migraine (2 sources) Migraine without aura, not refractory ; Translations: [Migraine without aura, not intractable, with status migrainosus] Onset: 10-23-2022 Chronic Headache; including migraine (1 source) Headache; Translations: [Nonintractable headache, unspecified chronicity pattern, unspecified headache type] Episodic Headache; including migraine (1 source) Headache; including migraine; Translations: [Headache, unspecified] Onset: 10-22-2022 Menstrual disorders (2 sources) Menometrorrhagia; Translations: [Excessive and frequent menstruation with irregular cycle] 07-08-2023 Chronic Nausea and vomiting (5 sources) Nausea with vomiting, unspecified; Translations: [Nausea] Onset: 05-01-2022 Episodic Other connective tissue disease (2 sources) Fibromyalgia; Translations: [Fibromyalgia] Onset: 05-21-2023 05-21-2023 Episodic Other gastrointestinal disorders (2 sources) Diarrhea; Translations: [Diarrhea, unspecified] Episodic Other inflammatory condition of skin (2 sources) Itching of ear; Translations: [Pruritus, unspecified] Onset: 05-21-2023 05-21-2023 Episodic Other nutritional; endocrine; and metabolic disorders (2 sources) Obesity caused by energy imbalance; Translations: [Other obesity due to excess calories] Onset: 05-21-2023 05-21-2023 Chronic Other upper respiratory disease (1 source) Congestion [...] [NICOTINE DEPEND CIGARETTES UNCOMP] Onset: 05-05-2022 Chronic Systemic lupus erythematosus and connective tissue disorders (2 sources) Lupus erythematosus; Translations: [Systemic lupus erythematosus, unspecified] Onset: 05-02-2019 05-20-2023 Chronic Unclassified (4 sources) CONTACT W/AND (SUSP) EXPOS COVID-19; Translations: [CONTACT W/AND (SUSP) EXPOS COVID-19] Onset: 05-05-2022 Viral infection (1 source) COVID-19; Translations: [COVID-19] Onset: 05-26-2023 Past or Other Problems Problem Classification Problem Date Documented Date Episodic/Chronic Allergic reactions (1 source) Unspecified contact dermatitis, [...] Flu A Ag Detection Negative Normal NEG [facility] Comment on above: Result Comment: for Influenza A Antigen Performed By: #### F LUABA #### [facility] [address] [place] [address] [place] [address] Photo Machine Operator: Taran De Los Santos MD Flu B Ag Detection Negative Normal NEG [facility] Comment on above: Result Comment: for Influenza B Antigen. Performed By: #### F LUABA #### [address] [place] [address] Photo Machine Operator: Taran De Los Santos MD [id number] 05-26-2023 SARS-CoV-2 (COVID-19) RNA AMPARO+probe Ql (Unsp spec) Detected Abnormal NOTDET [facility] Comment on above: Result Comment: [...] this assay. Fact sheet for Healthcare Providers: https://www.fda.gov/media/048046/download Fact sheet for Patients: https://www.fda.gov/media/322341/download Methodology: Isothermal Nucleic Acid Amplification Results reported to the appropriate Health Department Performed By: #### R CITY CONSTABLE #### [address] [id number] Photo Machine Operator: Enrique Ortega MD [address] [place] [address] Photo Machine Operator: Taran De Los Santos MD Resp Viral Panelon 3 Adenovirus Detected Abnormal [facility] Comment on above: Performed By: #### R [place] CONSTABLE #### [address] [address] Photo Machine Operator: Enrique Ortega MD [address] [place] [address] Photo Machine Operator: MD Lori Newbydet.[email or web address] Not detected Normal [facility] Comment on above: Performed By: #### R [place] CONSTABLE #### [address] [address] Photo Machine Operator: Enrique Ortega MD [address] [place] [address] Photo Machine Operator: Taran De Los Santos MD Bordetella pertussis Not detected Normal [facility] Comment on above: Performed By: #### R [place] CONSTABLE #### [address] [address] Photo Machine Operator: Enrique Ortega MD [address] [place] [phone] Photo Machine Operator: Taran De Los Santos MD Chlamyd.pneumoniae Not detected Normal [facility] Comment on above: Performed By: #### R [place] CONSTABLE #### [address] [place] [address] Photo Machine Operator: Enrique Ortega MD [facility] [address] [place] [address] [place] [address] Photo Machine Operator: Taran De Los Santos MD Coronavirus 229E Not detected Normal [facility] Comment on above: Performed By: #### R [place] CONSTABLE #### [address] [address] Photo Machine Operator: Enrique Ortega MD [facility] [address] [place] [address] [place] [address] Photo Machine Operator: Taran De Los Santos MD Coronavirus [id number] Not detected [facility] Comment on above: Performed By: #### R [place] CONSTABLE #### [address] [address] Photo Machine Operator: Enrique Ortega MD [facility] [address] [place] [address] [place] [address] Photo Machine Operator: Taran De Los Santos MD Coronavirus NL63 Not detected [facility] Comment on above: Performed By: #### R [place] CONSTABLE #### [address] [address] Photo Machine Operator: Enrique Ortega MD [facility] [address] [place] [address] [place] [address] Photo Machine Operator: Taran De Los Santos MD Coronavirus OC43 Not detected [facility] Comment on above: Performed By: #### R [place] CONSTABLE #### [address] [address] Photo Machine Operator: Enrique Ortega MD [facility] [address] [place] [address] [place] [address] Photo Machine Operator: Taran De Los Santos MD Human Metapneumo Not detected [facility] Comment on above: Performed By: #### R [place] CONSTABLE #### [facility] [address] [place] [address] Photo Machine Operator: Enrique Ortega MD [facility] [address] [place] [address] [place] [address] Photo Machine Operator: Taran De Los Santos MD Influenza A Not detected Normal [facility] Comment on above: Performed By: #### R [place] CONSTABLE #### [address] [address] Photo Machine Operator: Enrique Ortega MD [facility] [address] [place] [address] [place] [address] Photo Machine Operator: aTran De Los Santos MD Influenza B Not detected [facility] Comment on above: Performed By: #### R [place] CONSTABLE #### [address] [address] Photo Machine Operator: Enrique Ortega MD [facility] [address] [place] [address] [place] [address] Photo Machine Operator: Taran De Los Santos MD Mycoplas.pneumoniae Not detected Normal [facility] Comment on above: Result Comment: Perf ormed by multiplexed nucleic acid assay. Performed By: #### R CITY CONSTABLE #### [address] [address] Photo Machine Operator: Enrique Ortega MD [facility] [address] [place] [address] [place] [address] Photo Machine Operator: Taran De Los Santos MD Parainfluenza 1 Not detected Normal [facility] Comment on above: Performed By: #### R CITY CONSTABLE #### [facility] [address] [place] [id number] Photo Machine Operator: Enrique Ortega MD [facility] [address] [place] [address] [place], [place] [phone] Photo Machine Operator: Taran De Los Santos MD Parainfluenza 2 Not detected Normal [facility] Comment on above: Performed By: #### R [place] CONSTABLE #### [address] [address] Photo Machine Operator: Enrique Ortega MD [facility] [address] [place] [address] [place] [address] Photo Machine Operator: Taran De Los Santos MD Parainfluenza 3 Not detected Normal [facility] Comment on above: Performed By: #### R CITY CONSTABLE #### [address] [address] Photo Machine Operator: Enrique Ortega MD [facility] [address] [place] [address] [place] [address] Photo Machine Operator: Taran De Los Santos MD Parainfluenza 4 Not detected Normal [facility] Comment on above: Performed By: #### R CITY CONSTABLE #### [address] [address] Photo Machine Operator: Enrique Ortega MD [facility] [address] [place] [address] [place] [address] Photo Machine Operator: Taran De Los Santos MD Resp Syncytial Virus Not detected Normal [facility] Comment on above: Performed By: #### R CITY CONSTABLE #### [address] [address] Photo Machine Operator: Enrique Ortega MD [facility] [address] [place] [address] [place] [address] Photo Machine Operator: Taran De Los Santos MD Rhino/Enterovirus Not detected Normal [facility] Comment on above: Performed By: #### R CITY CONSTABLE #### [address] [address] Photo Machine Operator: Enrique Ortega MD [facility] [address] [place] [address] [place] [address] Photo Machine Operator: Taran De Los Santos MD SARS-CoV-2 (COVID-19) RNA AMPARO+probe Ql (Unsp spec) Not detected Normal [facility] Comment on above: Performed By: #### R CITY CONSTABLE #### [facility] [address] [place], [place] [phone] Photo Machine Operator: Enrique Ortega MD [facility] [address] [place] [address] Photo Machine Operator: Taran De Los Santos MD BMPon 10-23-2022 Anion gap [Moles/Vol] 10 mmol/L 9 - 17 mmol/L [facility] [employer] Calcium [Mass/Vol] 8.4 mg/dL Low 8.6 - 10. 4 mg/dL [facility] Chloride [Moles/Vol] 107 mmol/L 98 - 10 7 mmol/L [facility] CO2 [Moles/Vol] 24 mmol/L 20 - 31 mmol/L [facility] Creatinine [Mass/Vol] 0.88 mg/dL 0.50 - 0.90 mg/dL [facility] GFR/1.73 sq M.predicted MDRD (S/P/Bld) [Vol rate/Area] - PINF [facility] Comment on above: These results are [...] [Mass/Vol] 95 mg/dL 70 - 99 mg/dL [employer] Potassium [Moles/Vol] 3.9 mmol/L 3.7 - 5.3 mmol/L [facility] [employer] Sodium [Moles/Vol] 141 mmol/L 135 - 144 mmol/L [facility] [employer] Urea nitrogen [Mass/Vol] 7 mg/dL 6 - 20 mg/dL [facility] Urea nitrogen/Creatinine [Mass ratio] 8 mg/mg Low 9 - 20 [facility] Basic Metabolic Profon 10-23 Anion gap [Moles/Vol] 10 mmol/L Normal 9-17 [facility] Comment on above: Performed By: #### C DP, IPF, SED, BMP, CRP #### [facility] [address] [place], [place] [phone] Photo Machine Operator: Taran De Los Santos MD BUN/CRE Ratio 8 Low 9-20 [facility] Comment on above: Performed By: #### C DP, IPF, SED, BMP, CRP #### [facility] [address] [place], [place] [phone] Photo Machine Operator: Taran De Los Santos MD Calcium [Mass/Vol] 8.4 mg/dL Low 8.6-10.4 [facility] Comment on above: Performed By: #### C DP, IPF, SED, BMP, CRP #### [facility] [address] [place] [address] [place], [place] [phone] Photo Machine Operator: Taran De Los Santos MD Chloride [Moles/Vol] 107 mmol/L Normal 98-107 [facility] Comment on above: Performed By: #### C DP, IPF, SED, BMP, CRP #### [address] [place], [place] [phone] Photo Machine Operator: Taran De Los Santos MD CO2 [Moles/Vol] 24 mmol/L Normal 20-31 [facility] Comment on above: Performed By: #### C DP, IPF, SED, BMP, CRP #### [facility] [address] [place], [place] [phone] Photo Machine Operator: Taran De Los Santos MD Creatinine [Mass/Vol] 0.88 mg/dL Normal 0.50-0.90 [facility] Comment on above: Performed By: #### C DP, IPF, SED, BMP, CRP #### [facility] [address] [place] [address] Photo Machine Operator: Taran De Los Santos MD GFR/1.73 sq M.predicted among non-blacks MDRD (S/P/Bld) [Vol rate/Area] mL/min/{1.73_m2} Normal >60 [facility] Comment on above: Result Comment: These results [...] C DP, IPF, SED, BMP, CRP #### [address] [place] [address] Photo Machine Operator: Taran De Los Santos MD Glucose [Mass/Vol] 95 mg/dL Normal 70-99 [facility] Comment on above: Performed By: #### C DP, IPF, SED, BMP, CRP #### [address] [place], [place] [phone] Photo Machine Operator: Taran De Los Santos MD Potassium [Moles/Vol] 3.9 mmol/L Normal 3.7-5.3 [facility] Comment on above: Performed By: #### C DP, IPF, SED, BMP, CRP #### [address] [place], [place] [phone] Photo Machine Operator: Taran De Los Santos MD Sodium [Moles/Vol] 141 mmol/L Normal 135-144 [facility] Comment on above: Performed By: #### C DP, IPF, SED, BMP, CRP #### [facility] [address] [place] [address] Photo Machine Operator: Taran De Los Santos MD Urea nitrogen [Mass/Vol] 7 mg/dL Normal 6-20 [facility] Comment on above: Performed By: #### C DP, IPF, SED, BMP, CRP #### [address] [place] [address] Photo Machine Operator: Taran De Los Santos MD C-Reactive Proteinon 023 CRP [Mass/Vol] 34.0 mg/L High 0.0-5.[address] [facility] Comment on above: Performed By: #### C DP, IPF, SED, BMP, CRP #### [facility] [address] [place] [address] Photo Machine Operator: Taran De Los Santos MD CRP High sensitivity method [Mass/Vol] 34 mg/L High 0.0 - 5.0 mg/L [facility] CBC with Auto Differentialon 10-23-2022 Basophils (Bld) [#/Vol] [facility] Basophils/100 WBC (Bld) 0 % 0 - 2 % [facility] Eosinophils (Bld) [#/Vol] 0.07 10*3/uL [facility] Eosinophils/100 WBC (Bld) 1 % 1 - 4 % [facility] Erythrocyte distribution width (RBC) [Ratio] 13.0 % 11.8 - 14.4 % [facility] Hematocrit (Bld) [Volume fraction] 39.0 % 36.3 - 47.1 % [facility] Hemoglobin (Bld) [Mass/Vol] 13.1 g/dL 11.9 - 15.1 g/dL [facility] Immature granulocytes (Bld) [#/Vol] [facility] Immature granulocytes/100 WBC (Bld) 0 % 0 [facility] Interpretation and review of laboratory results Abnormal [facility] Lymphocytes/100 WBC (Bld) 17 % Low 24 - 43 % [facility] Lymphocytes/100 WBC (Bld) 1.06 % Low [facility] MCH (RBC) [Entitic mass] 31.2 pg 25.2 - 33.5 pg [facility] MCHC (RBC) [Mass/Vol] 33.6 g/dL 28.4 - 34.8 g/dL [facility] MCV (RBC) [Entitic vol] 92.9 fL 82.6 - 102.9 fL [facility] Monocytes/100 WBC (Bld) 13 % High 3 - 12 % [facility] Monocytes/100 WBC (Bld) 0.82 % [facility] Neutrophils/100 WBC (Bld) 69 % High 36 - 65 % [facility] NRBC Automated 0.0 0.0 per 100 WBC [facility] Platelets (Bld) [#/Vol] See Reflexed IPF Result [facility] RBC (Bld) [#/Vol] 4.20 10*6/uL 3.95 - 5.1 1 m/uL [facility] Segmented neutrophils/100 WBC (Bld) 4.40 % [facility] WBC other (Bld) [#/Vol] 6.4 [facility] CBC with Diffon 10-23-2022 Abs. Basophil <0.03 Normal 0.00-0.20 [facility] Comment on above: Performed By: #### C DP, IPF, SED, BMP, CRP #### [facility] [address] [place] [address] Dr. [place] [phone] Photo Machine Operator: Taran De Los Santos MD Abs.Imm.Granulocyte <0.03 Normal 0.00-0.30 [facility] Comment on above: Performed By: #### C DP, IPF, SED, BMP, CRP #### [address] [place] [phone] Photo Machine Operator: Taran De Los Santos MD Abs.Neutrophil (Seg) 4.40 k/uL Normal 1.50-8.10 [facility] Comment on above: Performed By: #### C DP, IPF, SED, BMP, CRP #### [address] [place] [phone] Photo Machine Operator: Taran De Los Santos MD Basophils/100 WBC (Bld) 0 % Normal 0-2 [facility] Comment on above: Performed By: #### C DP, IPF, SED, BMP, CRP #### [address] [place] [phone] Photo Machine Operator: Taran De Los Santos MD Eosinophils (Bld) [#/Vol] 0.07 10*3/uL Normal 0.00-0.44 [facility] Comment on above: Performed By: #### C DP, IPF, SED, BMP, CRP #### [facility] [address] [place] [address] Photo Machine Operator: Taran De Los Santos MD Eosinophils/100 WBC (Bld) 1 % Normal 1-4 [facility] Comment on above: Performed By: #### C DP, IPF, SED, BMP, CRP #### [facility] [address] [place], [place] [phone] Photo Machine Operator: Taran De Los Santos MD Immature granulocytes/100 WBC (Bld) 0 % Normal 0 [facility] Comment on above: Performed By: #### C DP, IPF, SED, BMP, CRP #### [address] [place], [place] [phone] Photo Machine Operator: Taran De Los Santos MD Lymphocytes (Bld) [#/Vol] 1.06 10*3/uL Low 1.10-3.70 [facility] Comment on above: Performed By: #### C DP, IPF, SED, BMP, CRP #### [address] [place] [address] Photo Machine Operator: Taran De Los Santos MD Lymphocytes/100 WBC (Bld) 17 % Low 24-43 [facility] Comment on above: Performed By: #### C DP, IPF, SED, BMP, CRP #### [facility] [address] [place] [address] [place] [address] Photo Machine Operator: Taran De Los Santos MD Monocytes (Bld) [#/Vol] 0.82 10*3/uL Normal 0.10-1.20 [facility] Comment on above: Performed By: #### C DP, IPF, SED, BMP, CRP #### [facility] [address] [place] [address] [place] [address] Photo Machine Operator: Taran De Los Santos MD Monocytes/100 WBC (Bld) 13 % High 3-12 [facility] Comment on above: Performed By: #### C DP, IPF, SED, BMP, CRP #### [facility] [address] [place], [place] [id number] Photo Machine Operator: Taran De Los Santos MD Neutrophil (Seg) 69 % High 36-65 [facility] Comment on above: Performed By: #### C DP, IPF, SED, BMP, CRP #### [facility] [address] [place] [address] Photo Machine Operator: Taran De Los Santos MD Erythrocyte distribution width (RBC) [Ratio] 13.0 % Normal 11.8-14.4 [facility] Comment on above: Performed By: #### C DP, IPF, SED, BMP, CRP #### [address] [place], [place] [id number] Photo Machine Operator: Taran De Los Santos MD Hematocrit (Bld) [Volume fraction] 39.0 % Normal 36.3-47.1 [facility] Comment on above: Performed By: #### C DP, IPF, SED, BMP, CRP #### [address] [place], [place] [phone] Photo Machine Operator: Taran De Los Santos MD Hemoglobin (Bld) [Mass/Vol] 13.1 g/dL Normal 11.9-15.1 [facility] Comment on above: Performed By: #### C DP, IPF, SED, BMP, CRP #### [address] [place], [place] [phone] Photo Machine Operator: Taran De Los Santos MD MCH (RBC) [Entitic mass] 31.2 pg Normal 25.2-33.5 [facility] Comment on above: Performed By: #### C DP, IPF, SED, BMP, CRP #### [address] [place] [phone] Photo Machine Operator: Taran De Los Santos MD MCHC (RBC) [Mass/Vol] 33.6 g/dL Normal 28.4-34.8 [facility] Comment on above: Performed By: #### C DP, IPF, SED, BMP, CRP #### [facility] [address] [place], [place] [phone] Photo Machine Operator: Taran De Los Santos MD MCV (RBC) [Entitic vol] 92.9 fL Normal 82.6-102.9 [facility] Comment on above: Performed By: #### C DP, IPF, SED, BMP, CRP #### [address] [place] [phone] Photo Machine Operator: Taran De Los Santos MD NRBC Automated 0.0 per [address] [facility] Comment on above: Performed By: #### C DP, IPF, SED, BMP, CRP #### [address] [place] [phone] Photo Machine Operator: Taran De Los Santos MD Platelet Count See Reflexed IPF Result Normal 138-453 [facility] Comment on above: Performed By: #### C DP, IPF, SED, BMP, CRP #### [address] [place] [id number] Photo Machine Operator: Taran De Los Santos MD RBC (Bld) [#/Vol] 4.20 10*6/uL Normal 3.95-5.11 [facility] Comment on above: Performed By: #### C DP, IPF, SED, BMP, CRP #### [address] [place], [place] [phone] Photo Machine Operator: Taran De Los Santos MD WBC (Bld) [#/Vol] 6.4 10*3/uL Normal 3.5-11.3 [facility] Comment on above: Performed By: #### C DP, IPF, SED, BMP, CRP #### [address] [place] [address] Photo Machine Operator: Taran De Los Santos MD COVID-19, Rapidon 10-23-2022 SARS-CoV-2 (COVID-19) RdRp gene AMPARO+probe Ql (Resp) Not detected Not Detected [facility] Comment on above: Rapid NAAT: The [...] management decisions. Fact sheet for Healthcare Providers: https://www.fda.gov/media/889105/download Fact sheet for Patients: https://www.fda.gov/media/329194/download Methodology: Isothermal Nucleic Acid Amplification Specimen Description .NASOPHARYNGEAL SWAB [facility] CT HEAD WO CONTRASTon 2022 CT [...] Joby Holt MD 10/23/[address] [facility] CT Head W/O Contraston 10-23 No acute intracrania l abnormality. Paranasal sinus inflammatory disease [facility] EXAMINATION: CT OF THE HEAD WITHOUT CONTRAST [...] of the visualized skull or soft tissues. [facility] Joby Holt M D - 10/23/2022 EXAMINATION: CT OF [...] acute intracranial abnormality. Paranasal sinus inflammatory disease [facility] [employer] Work Phone: Radiology Study observation (narrative) [facility] [employer] Phone: CT Head W/O ContrastOrdered By: Joby Holt on 10-23-2022 [facility] Work Phone: Flu A/B Ag Detectionon 10-23 Flu A Ag Detection Negative Normal [facility] Comment on above: Result Comment: for Influenza A Antigen Performed By: #### R [place] CONSTABLE #### [address] [phone] Photo Machine Operator: Enrique Ortega MD [address] [place] [address] Photo Machine Operator: Taran De Los Santos MD Flu B Ag Detection Negative Normal [facility] Comment on above: Result Comment: for Influenza B Antigen. Performed By: #### R [place] CONSTABLE #### [address] [id number] Photo Machine Operator: Enrique Ortega MD [address] [place] [address] Photo Machine Operator: Taran De Los Santos MD Immature Platelet Fractionon 10-23-2022 Interpretation and review of laboratory results Abnormal [facility] Platelet, Fluorescence 128 Low [facility] Platelets reticulated/100 platelets Auto (Bld) 5.2 % 1.1 - 10.3 % [facility] Mononucleosis Screenon 10-23 Mononucleosis Screen Negative Normal [facility] [place] Comment on above: Performed By: #### M CHERYL #### [facility] [address] [place] [address] [place] [address] Photo Machine Operator: Taran De Los Santos MD Heterophile Ab IA Ql (Bld) Negative NEGATIVE [facility] No Panel Informationon 10-23 Interpretation and review of laboratory results Abnormal [facility] PLT, Immature Fract.on 10-23 Platelet, Fluoresc. 128 k/uL Low 138-453 [facility] Comment on above: Performed By: #### C DP, IPF, SED, BMP, CRP #### [facility] [address] [place] [address] Photo Machine Operator: Taran De Los Santos MD PLT, Immature Fract. 5.2 % Normal 1.1-10.3 [facility] Comment on above: Performed By: #### C DP, IPF, SED, BMP, CRP #### [facility] [address] [place] [address] [place] [address] Photo Machine Operator: Taran De Los Santos MD Rapid influenza A/B antigens on 10-23-2022 FLUAV Ag Ql (Unsp spec) Negative NEGATIVE [facility] Comment on above: for Influenza A Anti gen FLUBV Ag Ql (Unsp spec) Negative NEGATIVE [facility] Comment on above: for Influenza B Anti gen. [facility] Resp Viral Panelon Source: .NASOPHARYNGEAL SWAB Normal [facility] Comment on above: Performed By: #### R [place] CONSTABLE #### [address] [id number] Photo Machine Operator: Enrique Ortega MD [facility] [address] [place] [address] [place] [address] Photo Machine Operator: Taran De Los Santos MD [id number] 10-23-2022 SARS-CoV-2 (COVID-19) RNA AMPARO+probe Ql (Unsp spec) Not detected Normal NOTDET [facility] Comment on above: Result Comment: [...] management decisions. Fact sheet for Healthcare Providers: https://www.fda.gov/media/564936/download Fact sheet for Patients: https://www.fda.gov/media/990774/download Methodology: Isothermal Nucleic Acid Amplification Performed By: #### C OVRB #### [facility] [address] [place] [address] Photo Machine Operator: Taran De Los Santos MD Sedimentation Rateon 023 Sedimentation Rate 11 mm/Hr Normal 0-20 [facility] Comment on above: Performed By: #### C DP, IPF, SED, BMP, CRP #### [facility] [address] [place] [address] Photo Machine Operator: Taran De Los Santos MD ESR (Bld) [Velocity] 11 mm/h [facility] XR CHEST PORTABLEon 10-24-19 23 XR [...] Damian Keys MD 10/23/[address] [facility] No acute process. Possible mild bronchitis. MHPN [...] are without acute process. Mild DJD spine. [facility] Damian Keys MD - 10/23/2022 EXAMINATION: [...] IMPRESSION: No acute process. Possible mild bronchitis. [employer] Work Phone: Radiology Study observation (narrative) [employer] Work Phone: XR CHEST PORTABLEOrdered By: Damian Keys on 10-23-2022 [employer] Work Phone: COVID-19, Rapidon 10-22-2022 SARS-CoV-2 (COVID-19) RdRp gene AMPARO+probe Ql (Resp) Not detected Not Detected [employer] Comment on above: Rapid NAAT: The specimen [...] management decisions. Fact sheet for Healthcare Providers: https://www.fda.gov/media/628292/download Fact sheet for Patients: https://www.fda.gov/media/690059/download Methodology: Isothermal Nucleic Acid Amplification Specimen Description .NASOPHARYNGEAL SWAB [facility] [id number] 10-22-2022 SARS-CoV-2 (COVID-19) RNA AMPARO+probe Ql (Unsp spec) Not detected Normal [facility] Comment on above: Result Comment: Rapid [...] management decisions. Fact sheet for Healthcare Providers: https://www.fda.gov/media/148136/download Fact sheet for Patients: https://www.fda.gov/media/544951/download Methodology: Isothermal Nucleic Acid Amplification Performed By: #### C OVRB #### [facility] [address] [place] [address] Photo Machine Operator: Taran De Los Santos MD GROUP A STREP CULTUREon 06-26 S. pyogenes Ag Ql (Unsp spec) Culture Observations: NEGATIVE FOR GROUP A STREPTOCOCCUS. Normal [facility] Comment on above: Performed By: #### C BC #### [facility] [address] [place], [place] [address] Dr. Sofia Payne STREPT SCREENon 07-19-2022 STREP SCREEN A Negative Normal NEGATIVE [facility] Comment on above: Performed By: #### C BC #### [facility] [address] [place] [address] [id number] [address] Sofia Payne Covid-19 PCR ([facility])on 04-25 SARS-CoV-2 (COVID-19) RNA AMPARO+probe Ql (Unsp spec) Not detected Normal NOT DETECTED [facility] Comment on above: Result Comment: This test is not yet approved or cleared by the [place] FDA. When there are no FDA-approved or cleared tests available, and other criteria are met, FDA can make tests available under an emergency access mechanism called an Emergency Use Authorization (EUA). The EUA for this test is supported by the Curb Machine Operator of Health and Human Service's (HHS's) declaration [...] SARS-CoV-2. Performed By: #### C BC #### [facility] [address] [place] [address] Dr. Sofia Payne INFLUENZA A AND B AGon 05-20 [facility] SEE BELOW Normal [facility] Comment on above: Result Comment: Nega tive for Flu A protein angiten. Infection due to Flu A cannot be ruled out. Flu A angiten in the sample may be below the detection limit of the test. Performed By: #### C BC #### [facility] [address] [place], [place] [id number] Dr. Sofia [facility] SEE BEL[facility] Normal [facility] Comment on above: Result Comment: Nega tive for Flu B protein antigen. Infection due to Flu B cannot be ruled out. Flu B antigen in the sample may be below the detection limit of the test. Performed By: #### C BC #### [facility] [address] [place] [address] Dr. Sofia Payne INFLUENZA A AG Negative Normal NEGATIVE SEE COMMENT [facility] Comment on above: Performed By: #### C BC #### [facility] [address] [place] [address] Dr. Sofia Payne INFLUENZA B AG Negative Normal NEGATIVE SEE COMMENT [facility] Comment on above: Performed By: #### C BC #### [facility] [address] [place] [address] Dr. Sofia Payne INTERNAL CONTROLS Within Normal Limits Normal Wi thin Normal Limits [facility] Comment on above: Performed By: #### C BC #### [facility] [address] [place] [address] Dr. Sofia Payne CBC AUTO DIFFon 05-01-2022 BASO # 0.0 103/ul Normal 0.0-0.1 [facility] Comment on above: Performed By: #### C BC #### [facility] [address] [place] [address] Dr. Sofia Payne Basophils/100 WBC (Bld) 0.4 % Normal 0.2-2.0 [facility] Comment on above: Performed By: #### C BC #### [facility] [address] [place] [address] Dr. Sofia Payne EO # 0.2 103/ul Normal 0.0-0.7 [facility] Comment on above: Performed By: #### C BC #### [facility] [address] [place] [address] Dr. Sofia Payne Eosinophils/100 WBC (Bld) 1.6 % Normal 0.9-7.0 [facility] Comment on above: Performed By: #### C BC #### [facility] [address] [place] [address] Dr. Sofia Payne Erythrocyte distribution width (RBC) [Ratio] 12.8 % Normal 11.0-15.0 [facility] Comment on above: Performed By: #### C BC #### [facility] [address] [place] [address] Dr. Sofia Payne Hematocrit (Bld) [Volume fraction] 41.9 % Normal 36.0-48.0 [facility] Comment on above: Performed By: #### C BC #### [facility] [address] [place] [address] Dr. Sofia Payne Hemoglobin (Bld) [Mass/Vol] 14.6 g/dL Normal 12.0-16.0 [facility] Comment on above: Performed By: #### C BC #### [facility] [address] [place] [address] Dr. Sofia Payne IG # 0.02 10e3/ul Normal 0.00-0.03 [facility] Comment on above: Performed By: #### C BC #### [facility] [address] [place] [address] Dr. Sofia Payne IG % 0.2 % Normal 0.0-0.5 [facility] Comment on above: Performed By: #### C BC #### [facility] [address] [place] [address] Dr. Sofia Payne LYMPH # 1.3 103/ul Normal 1.2-3.8 [facility] Comment on above: Performed By: #### C BC #### [facility] [address] [place] [address] Dr. Sofia Payne Lymphocytes/100 WBC (Bld) 13.8 % Critically low 20.5-60.0 [facility] Comment on above: Performed By: #### C BC #### [facility] [address] [place] [address] Dr. Sofia Payne MANUAL DIFF REQ NO Normal [facility] Comment on above: Performed By: #### C BC #### [facility] [address] [place] [address] Dr. Sofia Payne MCH (RBC) [Entitic mass] 30.3 pg Normal 26.7-34.0 [facility] Comment on above: Performed By: #### C BC #### [facility] [address] [place] [address] Dr. Sofia Payne MCHC (RBC) [Mass/Vol] 34.8 g/dL Normal 29.9-35.2 [facility] Comment on above: Performed By: #### C BC #### [facility] [address] [place] [address] [address] Sofia Payne MCV (RBC) [Entitic vol] 86.9 fL Normal 81.0-99.0 [facility] Comment on above: Performed By: #### C BC #### [facility] [address] [place] [address] [address] Sofia Payne MONO # 0.7 103/ul Normal 0.3-0.8 [facility] Comment on above: Performed By: #### C BC #### [facility] [address] [place] [address] [address] Sofia Payne Monocytes/100 WBC (Bld) 7.8 % Normal 1.7-12.0 [facility] Comment on above: Performed By: #### C BC #### [facility] [address] [place] [address] [address] Sofia Payne NEUT # 7.2 103/ul Critically high 1.4-6.5 [facility] Comment on above: Performed By: #### C BC #### [facility] [address] [place] [address] [address] Sofia Payne Neutrophils/100 WBC (Bld) 76.2 % Critically high 43.0-75.0 [facility] Comment on above: Performed By: #### C BC #### [facility] [address] [place] [address] [address] Sofia Payne Platelet mean volume (Bld) [Entitic vol] 11.3 fL Normal 9.5-13.5 [facility] Comment on above: Performed By: #### C BC #### [facility] [address] [place] [address] [address] Sofia Payne PLT 166 103/ul Normal 150-450 [facility] Comment on above: Performed By: #### C BC #### [facility] [address] [place] [address] [address] Sofia Payne RBC 4.82 106/ul Normal 4.20-5.40 [facility] Comment on above: Performed By: #### C BC #### [facility] [address] [place] [address] Dr. Sofia Pyane WBC 9.4 103/ul Normal 4.0-11.0 [facility] Comment on above: Performed By: #### C BC #### [facility] [address] [place] [address] Dr. Sofia Payne Covid-19 PCR (CVDTB)on SARS-CoV-2 (COVID-19) RNA AMPARO+probe Ql (Unsp spec) Not detected Normal NOT DETECTED [facility] Comment on above: Result Comment: When diagnostic [...] for this test is supported by the Curb Machine Operator of Health and Human Service's declaration that [...] used). Performed By: #### C VDTBH #### [facility] [address] [place] [address] Dr. Sofia Payne ER URINE PROFILEon 2 Bilirubin Ql (U) SMALL Abnormal NEGATIVE [facility] Comment on above: Performed By: #### C BC #### [facility] [address] [place] [address] Dr. Sofia Payne Clarity (U) CLEAR Normal CLEAR [facility] Comment on above: Performed By: #### C BC #### [facility] [address] [place] [address] Dr. Sofia Payne Color (U) YELLOW Normal YELLOW [facility] Comment on above: Performed By: #### C BC #### [facility] [address] [place] [address] Dr. Sofia DIAS A micrscopic examination will be performed if indicated. Normal [facility] Comment on above: Performed By: #### C BC #### [facility] [address] [place] [address] [address] Sofia Payne Glucose Ql (U) Negative Normal NEGATIVE [facility] Comment on above: Performed By: #### C BC #### [facility] [address] [place] [address] Dr. Sofia Payne Hemoglobin Ql (U) Negative Normal NEGATIVE [facility] Comment on above: Performed By: #### C BC #### [facility] [address] [place] [address] Dr. Sofia Payne Ketones Ql (U) 15 mg/dl Abnormal NEGATIVE [facility] Comment on above: Performed By: #### C BC #### [facility] [address] [place] [address] Dr. Sofia Payne LEUKOCYTES TRACE Abnormal NEGATIVE [facility] Comment on above: Performed By: #### C BC #### [facility] [address] [place] [address] Dr. Sofia Payne Nitrite Ql (U) Negative Normal NEGATIVE [facility] Comment on above: Performed By: #### C BC #### [facility] [address] [place] [address] Dr. Sofia Payne pH (U) 5.5 [pH] Normal 5-9 [facility] Comment on above: Performed By: #### C BC #### [facility] [address] [place] [address] Dr. Sofia Payne SPEC GRAVITY >=1.030 Abnormal 1.005-<=1.025 [facility] Comment on above: Performed By: #### C BC #### [facility] [address] [place] [address] Dr. Sofia Payne UA PROTEIN Negative Normal NEGATIVE/ TRACE [facility] Comment on above: Performed By: #### C BC #### [facility] [address] [place] [address] Dr. Sofia Payne UR MICRO IND INDICATED Normal [facility] Comment on above: Performed By: #### C BC #### [facility] [address] [place] [address] Dr. Sofia Payne Urobilinogen Qn (U) 0.2 {Kristopher'U}/dL Normal 0.2 - 1. 0 [facility] Comment on above: Performed By: #### C BC #### [facility] [address] [place] [address] Dr. Sofia Payne INFLUENZA A AND B AGon 05-01 [facility] SEE BELOW Normal [facility] Comment on above: Result Comment: Nega tive for Flu A protein angiten. Infection due to Flu A cannot be ruled out. Flu A angiten in the sample may be below the detection limit of the test. Performed By: #### C BC #### [facility] [address] [place] [address] Dr. Sofia Payne INFLUBNEGH SEE BELOW Normal [facility] Comment on above: Result Comment: Nega tive for Flu B protein antigen. Infection due to Flu B cannot be ruled out. Flu B antigen in the sample may be below the detection limit of the test. Performed By: #### C BC #### [facility] [address] [place] [address] Dr. Sofia Payne INFLUENZA A AG Negative Normal NEGATIVE SEE COMMENT [facility] Comment on above: Performed By: #### C BC #### [facility] [address] [place] [address] Dr. Sofia Payne INFLUENZA B AG Negative Normal NEGATIVE SEE COMMENT [facility] Comment on above: Performed By: #### C BC #### [facility] [address] [place] [address] Dr. Sofia Payne INTERNAL CONTROLS Within Normal Limits Normal Wi thin Normal Limits [facility] Comment on above: Performed By: #### C BC #### [facility] [address] [place] [address] Dr. Sofia Payne URon 05-01-2022 , QUAL Negative Normal NEGATIVE [facility] [place] Comment on above: Performed By: #### C BC #### [facility] [address] [place] [address] Dr. Sofia Payne PROF CHEM 8 (BAS METB)on Anion gap [Moles/Vol] 8.7 mmol/L Normal [facility] Comment on above: Performed By: #### C BC #### [facility] [address] [place] [address] Dr. Sofia Payne Calcium [Mass/Vol] 8.5 mg/dL Normal 8.5-10.1 [facility] Comment on above: Performed By: #### C BC #### [facility] [address] [place] [address] Dr. Sofia Payne Chloride [Moles/Vol] 103 mmol/L Normal 98-107 [facility] Comment on above: Performed By: #### C BC #### [facility] [address] [place] [address] Dr. Sofia Payne CO2 [Moles/Vol] 27.7 mmol/L Normal 21.0-32.0 [facility] Comment on above: Performed By: #### C BC #### [facility] [address] [place] [address] Dr. Sofia Payne Creatinine [Mass/Vol] 0.80 mg/dL Normal 0.55-1.02 [facility] Comment on above: Performed By: #### C BC #### [facility] [address] [place] [address] Dr. Sofia Payne EGFR-AF ARMENIAN >60 Normal >=60 [facility] Comment on above: Performed By: #### C BC #### [facility] [address] [place] [address] Dr. Sofia Payne EGFR-NON AF ARMENIAN >60 Normal >=60 [facility] Comment on above: Performed By: #### C BC #### [facility] [address] [place] [address] Dr. Sofia Payne Glucose [Mass/Vol] 89 mg/dL Normal 74-106 [facility] Comment on above: Performed By: #### C BC #### [facility] [address] [place] [address] [address] Sofia Payne Potassium [Moles/Vol] 3.9 mmol/L Normal 3.5-5.1 [facility] Comment on above: Performed By: #### C BC #### [facility] [address] [address] [address] Sofia Payne Sodium [Moles/Vol] 136 mmol/L Normal 136-145 [facility] Comment on above: Performed By: #### C BC #### [facility] [address] [place] [address] Dr. Sofia Payne Urea nitrogen [Mass/Vol] 8.0 mg/dL Normal 7.0-18.0 [facility] Comment on above: Performed By: #### C BC #### [facility] [address] [place] [address] Dr. Sofia Payne Urea nitrogen/Creatinine [Mass ratio] 10.0 mg/mg Normal [facility] Comment on above: Performed By: #### C BC #### [facility] [address] [place] [address] Dr. Sofia Payne URINE MICROSCOPIC ONLYon BACTERIA NONE SEEN Normal NONE SEEN [facility] Comment on above: Performed By: #### C BC #### [facility] [address] [place] [address] Dr. Sofia Payne Bacteria identified Cx Nom (U) NOT INDICATED Normal [facility] Comment on above: Performed By: #### C BC #### [facility] [address] [place] [address] Dr. Sofia Payne CAST NONE SEEN Normal NONE SEEN [facility] Comment on above: Performed By: #### C BC #### [facility] [address] [place] [address] Dr. Sofia Payne Crystals LM Nom (Urine sed) NONE SEEN Normal NONE SEEN [facility] Comment on above: Performed By: #### C BC #### [facility] [address] [place] [address] Dr. Sofia Payne Epithelial cells LM Ql (Urine sed) MANY Abnormal NONE SEEN /RARE [facility] Comment on above: Performed By: #### C BC #### [facility] [address] [address] [address] Sofia Payne MUCOUS TRACE Abnormal NONE SEEN [facility] Comment on above: Performed By: #### C BC #### [facility] [address] [place] [address] Dr. Sofia Payne RBC NONE SEEN Abnormal 0-2 [facility] Comment on above: Performed By: #### C BC #### [facility] [address] [address] [address] Sofia Payne WBC 2-5 Abnormal NONE SEEN [facility] Comment on above: Performed By: #### C BC #### [facility] [address] [place] [address] Dr. Sofia Payne NEFTALI by IFAon 04-25-2022 Antinuclear Antibodies, IFA Negative Normal [facility] Comment on above: Result Comment: Nega tive <1:80 Borderline 1:80 Positive >1:80 ICAP nomenclature: AC-0 For more information about Hep-2 cell patterns use ANApatterns.org, the official website for the International Consensus on Antinuclear Antibody (NEFTALI) Patterns (ICAP). Performed By: #### C BC #### [facility] [address] [place] [address] Dr. Sofia Payne ANTISTREPTOLYSIN O AB (ASO)o n 04-24-2022 Antistreptolysin O Ab 65.9 IU/mL Normal 0.0-200.0 [facility] Comment on above: Performed By: #### C BC #### [facility] [address] [place] [address] Dr. Sofia Payne RHEUMATOID FACTORon 04-24-20 RA Latex Turbid. <10.0 Normal <14.0 [facility] Comment on above: Performed By: #### C BC #### [facility] [address] [place] [address] Dr. Sofia Payne CBC AUTO DIFFon 04-23-2022 BASO # 0.0 103/ul Normal 0.0-0.1 [facility] Comment on above: Performed By: #### C BC #### [facility] [address] [place] [address] Dr. Sofia Payne Basophils/100 WBC (Bld) 0.7 % Normal 0.2-2.0 [facility] Comment on above: Performed By: #### C BC #### [facility] [address] [place] [address] Dr. Sofia Payne EO # 0.1 103/ul Normal 0.0-0.7 [facility] Comment on above: Performed By: #### C BC #### [facility] [address] [place] [address] Dr. Sofia Payne Eosinophils/100 WBC (Bld) 3.3 % Normal 0.9-7.0 [facility] Comment on above: Performed By: #### C BC #### [facility] [address] [place] [address] Dr. Sofia Payne Erythrocyte distribution width (RBC) [Ratio] 12.5 % Normal 11.0-15.0 [facility] Comment on above: Performed By: #### C BC #### [facility] [address] [place] [address] Dr. Sofia Payne Hematocrit (Bld) [Volume fraction] 40.9 % Normal 36.0-48.0 [facility] Comment on above: Performed By: #### C BC #### [facility] [address] [place] [address] Dr. Sofia Payne Hemoglobin (Bld) [Mass/Vol] 14.4 g/dL Normal 12.0-16.0 [facility] Comment on above: Performed By: #### C BC #### [facility] [address] [place] [address] Dr. Sofia Payne IG # 0.01 10e3/ul Normal 0.00-0.03 [facility] Comment on above: Performed By: #### C BC #### [facility] [address] [place] [address] Dr. Sofia Payne IG % 0.2 % Normal 0.0-0.5 [facility] Comment on above: Performed By: #### C BC #### [facility] [address] [address] [address] Sofia Payne LYMPH # 1.6 103/ul Normal 1.2-3.8 [facility] Comment on above: Performed By: #### C BC #### [facility] [address] [address] [address] Sofia Payne Lymphocytes/100 WBC (Bld) 36.3 % Normal 20.5-60.0 [facility] Comment on above: Performed By: #### C BC #### [facility] [address] [place] [address] Dr. Sofia Payne MANUAL DIFF REQ NO Normal [facility] Comment on above: Performed By: #### C BC #### [facility] [address] [place] [address] Dr. Sofia Payne MCH (RBC) [Entitic mass] 30.2 pg Normal 26.7-34.0 [facility] Comment on above: Performed By: #### C BC #### [facility] [address] [place] [address] Dr. Sofia Payne MCHC (RBC) [Mass/Vol] 35.2 g/dL Normal 29.9-35.2 [facility] Comment on above: Performed By: #### C BC #### [facility] [address] [place] [address] Dr. Sofia Payne MCV (RBC) [Entitic vol] 85.7 fL Normal 81.0-99.0 [facility] Comment on above: Performed By: #### C BC #### [facility] [address] [place] [address] Dr. Sofia Payne MONO # 0.3 103/ul Normal 0.3-0.8 [facility] Comment on above: Performed By: #### C BC #### [facility] [address] [place] [address] Dr. Sofia Payne Monocytes/100 WBC (Bld) 8.0 % Normal 1.7-12.0 [facility] Comment on above: Performed By: #### C BC #### [facility] [address] [place] [address] Dr. Sofia Payne NEUT # 2.2 103/ul Normal 1.4-6.5 [facility] Comment on above: Performed By: #### C BC #### [facility] [address] [place] [address] Dr. Sofia Payne Neutrophils/100 WBC (Bld) 51.5 % Normal 43.0-75.0 [facility] Comment on above: Performed By: #### C BC #### [facility] [address] [place] [address] Dr. Sofia Payne Platelet mean volume (Bld) [Entitic vol] 11.5 fL Normal 9.5-13.5 [facility] Comment on above: Performed By: #### C BC #### [facility] [address] [place] [address] Dr. Sofia Payne PLT 121 103/ul Critically low 150-450 [facility] Comment on above: Performed By: #### C BC #### [facility] [address] [place] [address] Dr. Sofia Payne RBC 4.77 106/ul Normal 4.20-5.40 [facility] Comment on above: Performed By: #### C BC #### [facility] [address] [place] [address] Dr. Sofia Payne WBC 4.3 103/ul Normal 4.0-11.0 [facility] Comment on above: Performed By: #### C BC #### [facility] [address] [place] [address] Dr. Sofia Payne CRPon 04-23-2022 CRP [Mass/Vol] mg/L Normal <=1.0 [facility] Comment on above: Performed By: #### C RP, CMP, TSH, URIC #### [facility] [address] [place] [address] Dr. Sofia Payne FREE T4on 04-23-2022 Free T4 [Mass/Vol] 1.01 ng/dL Normal 0.76-1.46 [facility] Comment on above: Performed By: #### F T4 #### [facility] [address] [place] [address] Dr. Sofia Payne PROF 14(COMP METB)on 022 Albumin [Mass/Vol] 3.7 g/dL Normal 3.4-5.0 [facility] Comment on above: Performed By: #### C RP, CMP, TSH, URIC #### [facility] [address] [place] [address] Dr. Sofia Payne Albumin/Globulin [Mass ratio] 1.1 {ratio} Normal [facility] Comment on above: Performed By: #### C RP, CMP, TSH, URIC #### [facility] [address] [place] [address] Dr. Sofia Payne ALP [Catalytic activity/Vol] 94 U/L Normal 46-116 [facility] Comment on above: Performed By: #### C RP, CMP, TSH, URIC #### [facility] [address] [place] [address] Dr. Sofia Payne ALT [Catalytic activity/Vol] 14 U/L Normal 14-59 [facility] Comment on above: Performed By: #### C RP, CMP, TSH, URIC #### [facility] [address] [place] [address] Dr. Sofia Payne Anion gap [Moles/Vol] 13.5 mmol/L Normal [facility] Comment on above: Performed By: #### C RP, CMP, TSH, URIC #### [facility] [address] [place] [address] Dr. Sofia Payne AST [Catalytic activity/Vol] 18 U/L Normal 15-37 [facility] Comment on above: Performed By: #### C RP, CMP, TSH, URIC #### [facility] [address] [place] [address] Dr. Sofia Payne Bilirubin [Mass/Vol] 0.3 mg/dL Normal 0.2-1.0 [facility] Comment on above: Performed By: #### C RP, CMP, TSH, URIC #### [facility] [address] [place] [address] Dr. Sofia Payne Calcium [Mass/Vol] 8.5 mg/dL Normal 8.5-10.1 [facility] Comment on above: Performed By: #### C RP, CMP, TSH, URIC #### [facility] [address] [address] [address] Sofia Payne Chloride [Moles/Vol] 104 mmol/L Normal 98-107 [facility] Comment on above: Performed By: #### C RP, CMP, TSH, URIC #### [facility] [address] [address] [address] Sofia Payne CO2 [Moles/Vol] 23.7 mmol/L Normal 21.0-32.0 [facility] Comment on above: Performed By: #### C RP, CMP, TSH, URIC #### [facility] [address] [place] [address] Dr. Sofia Payne Creatinine [Mass/Vol] 0.61 mg/dL Normal 0.55-1.02 [facility] Comment on above: Performed By: #### C RP, CMP, TSH, URIC #### [facility] [address] [place] [address] Dr. Sofia Payne EGFR-AF ARMENIAN >60 Normal >=60 [facility] Comment on above: Performed By: #### C RP, CMP, TSH, URIC #### [facility] [address] [place] [address] Dr. Sofia Panye EGFR-NON AF ARMENIAN >60 Normal >=60 [facility] Comment on above: Performed By: #### C RP, CMP, TSH, URIC #### [facility] [address] [place] [address] Dr. Sofia Payne Globulin (S) [Mass/Vol] 3.5 g/dL Normal [facility] Comment on above: Performed By: #### C RP, CMP, TSH, URIC #### [facility] [address] [place] [address] Dr. Sofia Payne Glucose [Mass/Vol] 86 mg/dL Normal 74-106 [facility] Comment on above: Performed By: #### C RP, CMP, TSH, URIC #### [facility] [address] [place] [address] Dr. Sofia Payne Potassium [Moles/Vol] 4.1 mmol/L Normal 3.5-5.1 [facility] Comment on above: Performed By: #### C RP, CMP, TSH, URIC #### [facility] [address] [place] [address] Dr. Sofia Payne Protein [Mass/Vol] 7.2 g/dL Normal 6.4-8.2 [facility] Comment on above: Performed By: #### C RP, CMP, TSH, URIC #### [facility] [address] [place] [address] Dr. Sofia Payne Sodium [Moles/Vol] 137 mmol/L Normal 136-145 [facility] Comment on above: Performed By: #### C RP, CMP, TSH, URIC #### [facility] [address] [place] [address] Dr. Sofia Payne Urea nitrogen [Mass/Vol] 6.0 mg/dL Critically low 7.0-18.0 [facility] Comment on above: Performed By: #### C RP, CMP, TSH, URIC #### [facility] [address] [place] [address] Dr. Sofia Payne Urea nitrogen/Creatinine [Mass ratio] 9.8 mg/mg Normal [facility] Comment on above: Performed By: #### C RP, CMP, TSH, URIC #### [facility] [address] [place] [address] Dr. Sofia Payne [facility] 10 mm/hr Normal <=20 [facility] Comment on above: Performed By: #### C BC #### [facility] [address] [place] [address] Dr. Sofia Payne TSHon 04-23-2022 TSH 2.555 uIU/mL Normal 0.358-3.740 [facility] Comment on above: Performed By: #### C RP, CMP, TSH, URIC #### [facility] [address] [place] [address] Dr. Sofia Payne URIC ACID SERUMon 04-23-2022 Urate [Mass/Vol] 4.2 mg/dL Normal 2.6-6.0 [facility] Comment on above: Performed By: #### C RP, CMP, TSH, URIC #### [facility] [address] [place] [address] Dr. Sofia Payne CBC AUTO DIFFon 12-30-2021 BASO # 0.0 103/ul Normal 0.0-0.1 [facility] Comment on above: Performed By: #### C BC #### [facility] [address] [place] [address] Dr. Sofia Payne Basophils/100 WBC (Bld) 0.5 % Normal 0.2-2.0 [facility] Comment on above: Performed By: #### C BC #### [facility] [address] [place] [address] Dr. Sofia Payne EO # 0.1 103/ul Normal 0.0-0.7 [facility] Comment on above: Performed By: #### C BC #### [facility] [address] [place] [address] Dr. Sofia Payne Eosinophils/100 WBC (Bld) 3.1 % Normal 0.9-7.0 [facility] Comment on above: Performed By: #### C BC #### [facility] [address] [place] [address] Dr. Sofia Payne Erythrocyte distribution width (RBC) [Ratio] 13.1 % Normal 11.0-15.0 [facility] Comment on above: Performed By: #### C BC #### [facility] [address] [place] [address] Dr. Sofia Payne Hematocrit (Bld) [Volume fraction] 43.4 % Normal 36.0-48.0 [facility] Comment on above: Performed By: #### C BC #### [facility] [address] [place] [address] Dr. Sofia Payne Hemoglobin (Bld) [Mass/Vol] 14.8 g/dL Normal 12.0-16.0 [facility] Comment on above: Performed By: #### C BC #### [facility] [address] [place] [address] Dr. Sofia Payne IG # 0.01 10e3/ul Normal 0.00-0.03 [facility] Comment on above: Performed By: #### C BC #### [facility] [address] [place] [address] Dr. Sofia Payne IG % 0.3 % Normal 0.0-0.5 [facility] Comment on above: Performed By: #### C BC #### [facility] [address] [place] [address] Dr. Sofia Payne LYMPH # 1.6 103/ul Normal 1.2-3.8 [facility] Comment on above: Performed By: #### C BC #### [facility] [address] [place] [address] Dr. Sofia Payne Lymphocytes/100 WBC (Bld) 41.2 % Normal 20.5-60.0 [facility] Comment on above: Performed By: #### C BC #### [facility] [address] [place] [address] Dr. Sofia Payne MANUAL DIFF REQ NO Normal [facility] Comment on above: Performed By: #### C BC #### [facility] [address] [place] [address] Dr. Sofia Payne MCH (RBC) [Entitic mass] 30.0 pg Normal 26.7-34.0 [facility] Comment on above: Performed By: #### C BC #### [facility] [address] [place] [address] Dr. Sofia Payne MCHC (RBC) [Mass/Vol] 34.1 g/dL Normal 29.9-35.2 [facility] Comment on above: Performed By: #### C BC #### [facility] [address] [place] [address] Dr. Sofia Payne MCV (RBC) [Entitic vol] 88.0 fL Normal 81.0-99.0 [facility] Comment on above: Performed By: #### C BC #### [facility] [address] [place] [address] Dr. Sofia Payne MONO # 0.4 103/ul Normal 0.3-0.8 [facility] Comment on above: Performed By: #### C BC #### [facility] [address] [place] [address] Dr. Sofia Payne Monocytes/100 WBC (Bld) 9.8 % Normal 1.7-12.0 [facility] Comment on above: Performed By: #### C BC #### [facility] [address] [place] [address] Dr. Sofia Payne NEUT # 1.8 103/ul Normal 1.4-6.5 [facility] Comment on above: Performed By: #### C BC #### [facility] [address] [place] [address] Dr. Sofia Payne Neutrophils/100 WBC (Bld) 45.1 % Normal 43.0-75.0 [facility] Comment on above: Performed By: #### C BC #### [facility] [address] [place] [address] Dr. Sofia Payne Platelet mean volume (Bld) [Entitic vol] 11.9 fL Normal 9.5-13.5 [facility] Comment on above: Performed By: #### C BC #### [facility] [address] [place] [address] Dr. Sofia Payne PLT 142 103/ul Critically low 150-450 [facility] Comment on above: Performed By: #### C BC #### [facility] [address] [place] [address] Dr. Sofia Payne RBC 4.93 106/ul Normal 4.20-5.40 [facility] Comment on above: Performed By: #### C BC #### [facility] [address] [place] [address] Dr. Sofia Payne WBC 3.9 103/ul Critically low 4.0-11.0 [facility] Comment on above: Performed By: #### C BC #### [facility] [address] [place] [address] Dr. Sofia Payne CULTURE URINEon 12-30-2021 CULTURE URINE Culture Observations : HEAVY GROWTH OF MIXED GENITAL SHARAN. NO POTENTIAL PATHOGENS SEEN. Normal [facility] Comment on above: Performed By: #### C BC #### [facility] [address] [place] [address] Dr. Sofia Payne FREE T4on 12-30-2021 Free T4 [Mass/Vol] 0.98 ng/dL Normal 0.76-1.46 [facility] Comment on above: Performed By: #### C BC #### [facility] [address] [place] [address] Dr. Sofia Payne MONOon 12-30-2021 Monocytes (Bld) [#/Vol] Positive Abnormal NEGATIVE [facility] Comment on above: Result Comment: Prev iously reported as: NEGATIVE On 12/30/2021 19:06 By JAW Performed By: #### M CHERYL #### [facility] [address] [place] [address] Dr. Sofia Payne PROF 14(COMP METB)on 022 Albumin [Mass/Vol] 4.1 g/dL Normal 3.4-5.0 [facility] Comment on above: Performed By: #### C BC #### [facility] [address] [place] [address] Dr. Sofia Payne Albumin/Globulin [Mass ratio] 1.2 {ratio} Normal [facility] Comment on above: Performed By: #### C BC #### [facility] [address] [place] [address] Dr. Sofia Payne ALP [Catalytic activity/Vol] 103 U/L Normal 46-116 [facility] Comment on above: Performed By: #### C BC #### [facility] [address] [place] [address] Dr. Sofia Payne ALT [Catalytic activity/Vol] 88 U/L Critically high 14-59 [facility] Comment on above: Performed By: #### C BC #### [facility] [address] [place] [address] Dr. Sofia Payne Anion gap [Moles/Vol] 14.0 mmol/L Normal [facility] Comment on above: Performed By: #### C BC #### [facility] [address] [address] [address] Sofia Payne AST [Catalytic activity/Vol] 24 U/L Normal 15-37 [facility] Comment on above: Performed By: #### C BC #### [facility] [address] [address] [address] Sofia Payne Bilirubin [Mass/Vol] 0.3 mg/dL Normal 0.2-1.0 [facility] Comment on above: Performed By: #### C BC #### [facility] [address] [address] [address] Sofia Payne Calcium [Mass/Vol] 9.2 mg/dL Normal 8.5-10.1 [facility] Comment on above: Performed By: #### C BC #### [facility] [address] [address] [address] Sofia Payne Chloride [Moles/Vol] 105 mmol/L Normal 98-107 [facility] Comment on above: Performed By: #### C BC #### [facility] [address] [address] [address] Sofia Payne CO2 [Moles/Vol] 25.4 mmol/L Normal 21.0-32.0 [facility] Comment on above: Performed By: #### C BC #### [facility] [address] [address] [address] Sofia Payne Creatinine [Mass/Vol] 0.74 mg/dL Normal 0.55-1.02 [facility] Comment on above: Performed By: #### C BC #### [facility] [address] [address] [address] Sofia Payne EGFR-AF ARMENIAN >60 Normal >=60 [facility] Comment on above: Performed By: #### C BC #### [facility] [address] [address] [address] Sofia Payne EGFR-NON AF ARMENIAN >60 Normal >=60 [facility] Comment on above: Performed By: #### C BC #### [facility] [address] [address] [address] Sofia Payne Globulin (S) [Mass/Vol] 3.3 g/dL Normal [facility] Comment on above: Performed By: #### C BC #### [facility] [address] [place] [address] Dr. Sofia Payne Glucose [Mass/Vol] 96 mg/dL Normal 74-106 [facility] Comment on above: Performed By: #### C BC #### [facility] [address] [address] [address] Sofia Payne Potassium [Moles/Vol] 4.4 mmol/L Normal 3.5-5.1 [facility] Comment on above: Performed By: #### C BC #### [facility] [address] [place] [address] Dr. Sofia Payne Protein [Mass/Vol] 7.4 g/dL Normal 6.4-8.2 [facility] Comment on above: Performed By: #### C BC #### [facility] [address] [place] [address] Dr. Sofia Payne Sodium [Moles/Vol] 140 mmol/L Normal 136-145 [facility] Comment on above: Performed By: #### C BC #### [facility] [address] [place] [address] Dr. Sofia Payne Urea nitrogen [Mass/Vol] 10.0 mg/dL Normal 7.0-18.0 [facility] Comment on above: Performed By: #### C BC #### [facility] [address] [place] [address] Dr. Sofia Payne Urea nitrogen/Creatinine [Mass ratio] 13.5 mg/mg Normal [facility] Comment on above: Performed By: #### C BC #### [facility] [address] [place] [address] Dr. Sofia Payne TSHon 12-30-2021 TSH 1.676 uIU/mL Normal 0.358-3.740 [facility] Comment on above: Performed By: #### C BC #### [facility] [address] [place] [address] Dr. Sofia Payne UA RANDOM W/MICROSCOPICon AMORPHOUS CRYSTALS FEW Normal [facility] Comment on above: Performed By: #### C BC #### [facility] [address] [place] [address] Dr. Sofia Payne BACTERIA MODERATE Abnormal NONE SEEN [facility] Comment on above: Performed By: #### C BC #### [facility] [address] [place] [address] Dr. Sofia Payne Bilirubin Ql (U) Negative Normal NEGATIVE [facility] Comment on above: Performed By: #### C BC #### [facility] [address] [place] [address] Dr. Sofia Payne CAST NONE SEEN Normal NONE SEEN [facility] Comment on above: Performed By: #### C BC #### [facility] [address] [place] [address] Dr. Sofia Payne Clarity (U) SL CLOUDY Abnormal CLEAR [facility] Comment on above: Performed By: #### C BC #### [facility] [address] [place] [address] Dr. Sofia Payne Color (U) YELLOW Normal YELLOW [facility] Comment on above: Performed By: #### C BC #### [facility] [address] [place] [address] Dr. Sofia Payne Crystals LM Nom (Urine sed) SEEN Abnormal NONE SEEN [facility] Comment on above: Performed By: #### C BC #### [facility] [address] [place] [address] Dr. Sofia Payne Epithelial cells LM Ql (Urine sed) FEW Abnormal NONE SEEN /RARE [facility] Comment on above: Performed By: #### C BC #### [facility] [address] [place] [address] Dr. Sofia Payne Glucose Ql (U) Negative Normal NEGATIVE [facility] Comment on above: Performed By: #### C BC #### [facility] [address] [place] [address] Dr. Sofia Payne Hemoglobin Ql (U) MODERATE Abnormal NEGATIVE [facility] Comment on above: Performed By: #### C BC #### [facility] [address] [address] [address] Sofia Payne Ketones Ql (U) Negative Normal NEGATIVE [facility] Comment on above: Performed By: #### C BC #### [facility] [address] [address] [address] Sofia Payne LEUKOCYTES SMALL Abnormal NEGATIVE [facility] Comment on above: Performed By: #### C BC #### [facility] [address] [place] [address] Dr. Sofia Payne MUCOUS NONE SEEN Normal NONE SEEN [facility] Comment on above: Performed By: #### C BC #### [facility] [address] [place] [address] Dr. Sofia Payne Nitrite Ql (U) Negative Normal NEGATIVE [facility] Comment on above: Performed By: #### C BC #### [facility] [address] [place] [address] Dr. Sofia Payne pH (U) 6.0 [pH] Normal 5-9 [facility] Comment on above: Performed By: #### C BC #### [facility] [address] [place] [address] Dr. Sofia Payne RBC 10-20 Abnormal 0-2 [facility] Comment on above: Performed By: #### C BC #### [facility] [address] [place] [address] Dr. Sofia Payne SPEC GRAVITY >=1.030 Abnormal 1.005-<=1.025 [facility] [place] Comment on above: Performed By: #### C BC #### [facility] [address] [place] [address] Dr. Sofia Payne UA PROTEIN Negative Normal NEGATIVE/ TRACE [facility] Comment on above: Performed By: #### C BC #### [facility] [address] [place] [address] Dr. Sofia Payne Urobilinogen Qn (U) 0.2 {Kristopher'U}/dL Normal 0.2 - 1. 0 [facility] Comment on above: Performed By: #### C BC #### [facility] [address] [place] [address] Dr. Sofia Payne WBC 5-10 Abnormal NONE SEEN [facility] Comment on above: Performed By: #### C BC #### [facility] [address] [place] [address] Dr. Sofia Payne CBC W MANUAL DIFFon 12-25-19 22 ATYPICAL LYMPH # Normal [facility] Comment on above: Performed By: #### C BC #### [facility] [address] [place] [address] Dr. Sofia Payne ATYPICAL LYMPH % Normal [facility] Comment on above: Performed By: #### C BC #### [facility] [address] [place] [address] Dr. Sofia Payne BAND # 0.1 103/ul Normal 0.0-0.3 [facility] Comment on above: Performed By: #### C BC #### [facility] [address] [place] [address] Dr. Sofia Payne BAND % 2 % Normal 0-5 [facility] Comment on above: Performed By: #### C BC #### [facility] [address] [place] [address] Dr. Sofia Payne BASOM # 0.00 103/ul Normal 0.00-0.10 [facility] Comment on above: Performed By: #### C BC #### [facility] [address] [place] [address] Dr. Sofia Payne BASOM % 0.0 % Critically low 0.2-2.0 [facility] Comment on above: Performed By: #### C BC #### [facility] [address] [place] [address] Dr. Sofia Payne BLAST # Normal [facility] Comment on above: Performed By: #### C BC #### [facility] [address] [place] [address] Dr. Sofia Payne BLAST % Normal [facility] Comment on above: Performed By: #### C BC #### [facility] [address] [place] [address] Dr. Sofia Payne CORRECTED WBC Normal 4.0-11.0 [facility] [place] [facility] Comment on above: Performed By: #### C BC #### [facility] [address] [place] [address] Dr. Sofia Payne EOS # 0.00 103/ul Normal 0.00-0.70 [facility] Comment on above: Performed By: #### C BC #### [facility] [address] [place] [address] Dr. Sofia Payne EOS% 0.0 % Critically low 0.9-7.0 [facility] Comment on above: Performed By: #### C BC #### [facility] [address] [place] [address] Dr. Sofia Payne HCT 40.9 % Normal 36.0-48.0 [facility] Comment on above: Performed By: #### C BC #### [facility] [address] [place] [address] Dr. Sofia Payne HGB 13.8 g/dl Normal 12.0-16.0 [facility] Comment on above: Performed By: #### C BC #### [facility] [address] [place] [address] Dr. Sofia Payne LYMPHM # 0.43 103/ul Critically low 1.20-3.80 [facility] Comment on above: Performed By: #### C BC #### [facility] [address] [place] [address] Dr. Sofia Payne LYMPHM% 15.0 % Critically low 20.5-60.0 [facility] Comment on above: Performed By: #### C BC #### [facility] [address] [place] [address] Dr. Sofia Payne MCH 30.4 pg Normal 26.7-34.0 [facility] Comment on above: Performed By: #### C BC #### [facility] [address] [place] [address] Dr. Sofia Payne MCHC 33.7 g/dl Normal 29.9-35.2 [facility] Comment on above: Performed By: #### C BC #### [facility] [address] [place] [address] Dr. Sofia Payne MCV 90.1 fL Normal 81.0-99.0 [facility] Comment on above: Performed By: #### C BC #### [facility] [address] [place] [address] Dr. Sofia Payne METAMYELOCYTE # Normal [facility] [place] Comment on above: Performed By: #### C BC #### [facility] [address] [place] [address] Dr. Sofia Payne METAMYELOCYTE % Normal [facility] Comment on above: Performed By: #### C BC #### [facility] [address] [place] [address] Dr. Sofia Payne MONOM# 0.41 103/ul Normal 0.30-0.80 [facility] Comment on above: Performed By: #### C BC #### [facility] [address] [place] [address] Dr. Sofia Payne MONOM% 14.0 % Critically high 1.7-12.0 [facility] Comment on above: Performed By: #### C BC #### [facility] [address] [place] [address] Dr. Sofia Payne MPV 11.0 fL Normal 9.5-13.5 [facility] Comment on above: Performed By: #### C BC #### [facility] [address] [place] [address] Dr. Sofia Payne MYELOCYTE # Normal [facility] Comment on above: Performed By: #### C BC #### [facility] [address] [place] [address] Dr. Sofia Payne MYELOCYTE % Normal [facility] Comment on above: Performed By: #### C BC #### [facility] [address] [place] [address] Dr. Sofia Payne NRBC Normal [facility] Comment on above: Performed By: #### C BC #### [facility] [address] [place] [address] Dr. Sofia Payne PLT 98 103/ul Critically low 150-450 [facility] Comment on above: Performed By: #### C BC #### [facility] [address] [address] [address] Sofia Payne RBC 4.54 106/ul Normal 4.20-5.40 [facility] Comment on above: Performed By: #### C BC #### [facility] [address] [address] [address] Sofia Payne RDW 13.1 % Normal 11.0-15.0 [facility] Comment on above: Performed By: #### C BC #### [facility] [address] [address] [address] Sofia Payne SEG # 2.00 103/ul Normal 1.40-6.50 [facility] Comment on above: Performed By: #### C BC #### [facility] [address] [place] [address] Dr. Sofia Payne SEG % 69.0 % Normal 43.0-75.0 [facility] Comment on above: Performed By: #### C BC #### [facility] [address] [place] [address] Dr. Sofia Payne WBC 2.9 103/ul Critically low 4.0-11.0 [facility] Comment on above: Performed By: #### C BC #### [facility] [address] [place] [address] ABD/PELVIS WO CONon [...] by: EMMANUEL ROMAN Date: 2021-12-24 12:09 Normal [facility] CULTURE URINEon 12-24-2021 CULTURE URINE Culture Observations : NO GROWTH. Normal [facility] Comment on above: Performed By: #### C BC #### [facility] [address] [place] [address] Dr. Sofia Payne ER URINE PROFILEon 2 Bilirubin Ql (U) SMALL Abnormal NEGATIVE [facility] Comment on above: Performed By: #### C BC #### [facility] [address] [place] [address] Dr. Sofia Payne Clarity (U) SL CLOUDY Abnormal CLEAR [facility] Comment on above: Performed By: #### C BC #### [facility] [address] [place] [address] Dr. Sofia Payne Color (U) DK. ORANGE Abnormal YELLOW [facility] Comment on above: Performed By: #### C BC #### [facility] [address] [place] [address] Dr. Sofia Payne ERUAHKeyanna A micrscopic examination will be performed if indicated. Normal [facility] Comment on above: Performed By: #### C BC #### [facility] [address] [place] [address] Dr. Sofia Payne Glucose Ql (U) Negative Normal NEGATIVE [facility] Comment on above: Performed By: #### C BC #### [facility] [address] [place] [address] Dr. Sofia Payne Hemoglobin Ql (U) LARGE Abnormal NEGATIVE [facility] Comment on above: Performed By: #### C BC #### [facility] [address] [place] [address] Dr. Sofia Payne Ketones Ql (U) 40 mg/dl Abnormal NEGATIVE [facility] Comment on above: Performed By: #### C BC #### [facility] [address] [place] [address] Dr. Sofia Payne LEUKOCYTES Negative Normal NEGATIVE [facility] Comment on above: Performed By: #### C BC #### [facility] [address] [place] [address] Dr. Sofia Payne Nitrite Ql (U) Negative Normal NEGATIVE [facility] Comment on above: Performed By: #### C BC #### [facility] [address] [place] [address] Dr. Sofia Payne pH (U) 5.5 [pH] Normal 5-9 [facility] Comment on above: Performed By: #### C BC #### [facility] [address] [place] [address] Dr. Sofia Payne Protein (U) [Mass/Vol] 100 mg/dL Abnormal NEGATIVE/ TRACE [facility] Comment on above: Performed By: #### C BC #### [facility] [address] [place] [address] Dr. Sofia Payne SPEC GRAVITY >=1.030 Abnormal 1.005-<=1.025 [facility] [place] Comment on above: Performed By: #### C BC #### [facility] [address] [place] [address] Dr. Sofia Payne UR MICRO IND INDICATED Normal [facility] Comment on above: Performed By: #### C BC #### [facility] [address] [place] [address] Dr. Sofia Payne Urobilinogen Qn (U) 1.0 {Kristopher'U}/dL Normal 0.2 - 1. 0 [facility] Comment on above: Performed By: #### C BC #### [facility] [address] [place] [address] Dr. Sofia Payne PROF 14(COMP METB)on 022 Albumin [Mass/Vol] 3.8 g/dL Normal 3.4-5.0 [facility] Comment on above: Performed By: #### C BC #### [facility] [address] [place] [address] Dr. Sofia Payne Albumin/Globulin [Mass ratio] 1.2 {ratio} Normal [facility] Comment on above: Performed By: #### C BC #### [facility] [address] [place] [address] Dr. Sofia Payne ALP [Catalytic activity/Vol] 78 U/L Normal 46-116 [facility] Comment on above: Performed By: #### C BC #### [facility] [address] [place] [address] Dr. Sofia Payne ALT [Catalytic activity/Vol] 9 U/L Critically low 14-59 [facility] Comment on above: Performed By: #### C BC #### [facility] [address] [place] [address] Dr. Sofia Payne Anion gap [Moles/Vol] 13.4 mmol/L Normal [facility] Comment on above: Performed By: #### C BC #### [facility] [address] [place] [address] Dr. Sofia Payne AST [Catalytic activity/Vol] 13 U/L Critically low 15-37 [facility] Comment on above: Performed By: #### C BC #### [facility] [address] [place] [address] Dr. Sofia Payne Bilirubin [Mass/Vol] 0.2 mg/dL Normal 0.2-1.0 [facility] Comment on above: Performed By: #### C BC #### [facility] [address] [place] [address] Dr. Sofia Payne Calcium [Mass/Vol] 8.2 mg/dL Critically low 8.5-10.1 [facility] Comment on above: Performed By: #### C BC #### [facility] [address] [place] [address] Dr. Sofia Payne Chloride [Moles/Vol] 106 mmol/L Normal 98-107 [facility] Comment on above: Performed By: #### C BC #### [facility] [address] [place] [address] Dr. Sofia Payne CO2 [Moles/Vol] 24.9 mmol/L Normal 21.0-32.0 [facility] Comment on above: Performed By: #### C BC #### [facility] [address] [place] [address] Dr. Sofia Payne Creatinine [Mass/Vol] 0.93 mg/dL Normal 0.55-1.02 [facility] Comment on above: Performed By: #### C BC #### [facility] [address] [place] [address] Dr. Sofia Payne EGFR-AF ARMENIAN >60 Normal >=60 [facility] Comment on above: Performed By: #### C BC #### [facility] [address] [place] [address] Dr. Sofia Payne EGFR-NON AF ARMENIAN >60 Normal >=60 [facility] Comment on above: Performed By: #### C BC #### [facility] [address] [place] [address] Dr. Sofia Payne Globulin (S) [Mass/Vol] 3.3 g/dL Normal [facility] Comment on above: Performed By: #### C BC #### [facility] [address] [place] [address] Dr. Sofia Payne Glucose [Mass/Vol] 94 mg/dL Normal 74-106 [facility] Comment on above: Performed By: #### C BC #### [facility] [address] [place] [address] Dr. Sofia Payne Potassium [Moles/Vol] 4.3 mmol/L Normal 3.5-5.1 [facility] Comment on above: Performed By: #### C BC #### [facility] [address] [place] [address] Dr. Sofia Payne Protein [Mass/Vol] 7.1 g/dL Normal 6.4-8.2 [facility] Comment on above: Performed By: #### C BC #### [facility] [address] [place] [address] Dr. Sofia Payne Sodium [Moles/Vol] 140 mmol/L Normal 136-145 [facility] Comment on above: Performed By: #### C BC #### [facility] [address] [place] [address] Dr. Sofia Payne Urea nitrogen [Mass/Vol] 7.0 mg/dL Normal 7.0-18.0 [facility] Comment on above: Performed By: #### C BC #### [facility] [address] [place] [address] Dr. Sofia Payne Urea nitrogen/Creatinine [Mass ratio] 7.5 mg/mg Normal [facility] Comment on above: Performed By: #### C BC #### [facility] [address] [place] [address] Dr. Sofia Payne URINE MICROSCOPIC ONLYon BACTERIA SMALL Abnormal NONE SEEN [facility] Comment on above: Performed By: #### C BC #### [facility] [address] [place] [address] Dr. Sofia Payne Bacteria identified Cx Nom (U) INDICATED Normal [facility] Comment on above: Performed By: #### C BC #### [facility] [address] [place] [address] Dr. Sofia Payne CAST NONE SEEN Normal NONE SEEN [facility] Comment on above: Performed By: #### C BC #### [facility] [address] [place] [address] Dr. Sofia Payne Crystals LM Nom (Urine sed) NONE SEEN Normal NONE SEEN [facility] Comment on above: Performed By: #### C BC #### [facility] [address] [place] [address] Dr. Sofia Payne Epithelial cells LM Ql (Urine sed) FEW Abnormal NONE SEEN /RARE [facility] Comment on above: Performed By: #### C BC #### [facility] [address] [place] [address] Dr. Sofia Payne MUCOUS NONE SEEN Normal NONE SEEN [facility] Comment on above: Performed By: #### C BC #### [facility] [address] [address] [address] Sofia Payne RBC (U) [#/Vol] /uL Abnormal 0-2 [facility] [place] Comment on above: Performed By: #### C BC #### [facility] [address] [place], [place] [address] Dr. Sofia Payne WBC 2-5 Abnormal NONE SEEN [facility] Comment on above: Performed By: #### C BC #### [facility] [address] [id number] Sofia Payne Covid-19 PCR ([facility])on SARS-CoV-2 (COVID-19) RNA AMPARO+probe Ql (Unsp spec) Not detected Normal NOT DETECTED [facility] Comment on above: Result Comment: This test is not yet approved or cleared by the [place] FDA. When there are no FDA-approved or cleared tests available, and other criteria are met, FDA can make tests available under an emergency access mechanism called an Emergency Use Authorization (EUA). The EUA for this test is supported by the [place] of Health and Human Service's (HHS's) declaration [...] SARS-CoV-2. Performed By: #### C BC #### [facility] [address] [place] [address] Dr. Sofia Payne COVID/FLU/RSV RT-PCRon 12-22 SARS-CoV-2 (COVID-19) RNA AMPARO+probe Ql (Unsp spec) Negative [employer] Other COVID/FLU/RSV RT-PCR Negative [facility] Other COVID/FLU/RSV RT-PCR [facility] [employer] Other Mononucleosis Test, [employer] 0 12-22-2021 Heterophile Ab LA Ql (S) Negative [facility] [employer] Other COVID Quick Testingon 2021 Result Negative [facility] [employer] Other Quick Strepon 06-04-2021 S. pyogenes Org specific cx Ql (Throat) Negative [facility] [employer] Other Quick Strep [facility] [employer] Other RAD - Ultrasound Reporton RAD - Ultrasound Report [id number] .00CD:127 [facility] ED Note-Physicianon 02-22-20 ED Note-Physician [id number]# 1.00CD:127 [facility] ED Note-Physician [id number]# 1.00CD:127 [facility] ED Note-Physician [id number]# 1.00CD:127 [facility] Physician Referralon 020 Physician Referral [id number]. 00CD:127 [facility] Provider Letteron 02-15-2020 Provider Letter February 15, 2020 LINA ALCANTAR [address] [place] [address] LINA ALCANTAR 1990 Dear Lina Alcantar, You [...] [facility] [address], [place] [address] [facility] Formson 02-03-2020 Forms [id number] .00CD:127 [facility] Ambulatory Clinical Summaryo n 02-01-2020 Ambulatory Clinical Summary {[id number]}CD:[id number] [facility] Patient Educationon 02-01-20 Patient Education Family [...] Document Reviewed: 06/18/2012 ExitCare? Patient Information ?2013 [place]. Normal [facility] Reminderson 02-01-2020 Reminders - From: Madhuri Bhagat Cc: Madhuri Bhagat; Sent: 02/01/2020 09:34:17 EDT Show up: 02/01/2020 09:33:00 EDT Subject: renal us at [place] Due Date/Time: 02/03/2020 09:33:00 EDT Reminder/Recall left msg with luciano sched pt needs renal us scheduled early monring any day and follow up appt to go over results Normal [facility] Urology Office/Clinic Noteon 02-01-2020 Urology Office/Clinic Note Chief Complaint recurrent UTI HPI Staff [employer], referred to our office due to recurrent [...] of Present Illness Reviewed UA, PVR, and [employer] paperwork. There have been no associated fever [...] (N39.0: Urinary tract infection, site not specified) [employer] referred by Dr. Bhagat for recurrent UTIs. [...] for Bactrim 400mg/80mg qd sent to [facility] [place]. All questions/concerns were discussed. Pt. to call [...] LUDWIG, Torres Warner [address] [place] [address] [phone] Additional Instructions: Patient Education Urinary Tract Infection [...] Protein Urine Dipstick: Negative (02/01/20 09:13:00) Specific [place] Urine Dipstick: 1.025 (02/01/20 09:13:00) Urine Color Urine Dipstick: Yellow (02/01/20 09:13:00) Urobilinogen Urine Dipstick: Normal 0.2-1 EU/dl (02/01/20 09:13:00) pH Urine Dipstick: 5.5 (02/01/20 09:13:00) Normal [facility] Comment on above: Result Comment: Elec tronically Signed By: Torres Villafuerte MD\.br\Date and Time Signed: 02/01/20 09:52 EDT\.br\Electronically Co-Signed By: Dolly Duffy MA\.br\Date and Time Co-Signed: 02/01/20 09:29 EDT Vital Signs Date Time Vital Sign Value Performing Clinician Facility 07-08-2023 14:32-0500 Body mass index (BMI) [Ratio] 36.39 kg/m2 John Rigoberto DO Work Phone: [facility] 07-08-2023 14:32-0500 Body weight 96.16 kg John Rigoberto DO Work Phone: [facility] 07-08-2023 14:32-0500 Diastolic blood pressure 74 mm[Hg] John Rigoberto DO Work Phone: [facility] 07-08-2023 14:32-0500 Systolic blood pressure 118 mm[Hg] John Rigoberto DO Work Phone: [facility] 10-23-2022 10:15-0400 Body temperature 99.5 [degF] Belne Spencer DO Work Phone: [facility] 10-23-2022 10:15-0400 Diastolic blood pressure 60 mm[Hg] Belen Spencer DO Work Phone: [facility] 10-23-2022 10:15-0400 Heart rate 94 /min Belen Spencer DO Work Phone: [facility] 10-23-2022 10:15-0400 Systolic blood pressure 114 mm[Hg] Belen Spencer DO Work Phone: [facility] 10-23-2022 08:48-0400 SaO2% (BldA) [Mass fraction] 98 % Belen Spencer DO Work Phone: [facility] [employer] 10-23-2022 08:27-0400 Body mass index (BMI) [Ratio] 32.61 kg/m2 Belen Spencer DO Work Phone: [facility] 10-23-2022 08:27-0400 Body weight 86.18 kg Belen Spencer DO Work Phone: [facility] [employer] 10-23-2022 08:27-0400 Respiratory rate 16 /min Belen Spencer DO Work Phone: [employer] 10-22-2022 09:47-0400 Diastolic blood pressure 70 mm[Hg] Denisse Ann MD Work Phone: [employer] 10-22-2022 09:47-0400 Systolic blood pressure 105 mm[Hg] Denisse Ann MD Work Phone: [facility] [employer] 10-22-2022 09:42-0400 Body height 162.6 cm Denisse Ann MD Work Phone: [facility] [employer] 10-22-2022 09:42-0400 Body mass index (BMI) [Ratio] 32.61 kg/m2 Denisse Ann MD Work Phone: [facility] [employer] 10-22-2022 09:42-0400 Body temperature 100.09 [degF] Denisse Ann MD Work Phone: [employer] 10-22-2022 09:42-0400 Body weight 86.18 kg Denisse Ann MD Work Phone: [employer] 10-22-2022 09:42-0400 Heart rate 97 /min Denisse Ann MD Work Phone: [facility] [employer] 10-22-2022 09:42-0400 Respiratory rate 18 /min Denisse Ann MD Work Phone: [employer] 10-22-2022 09:42-0400 SaO2% (BldA) [Mass fraction] 98 % Denisse Ann MD Work Phone: [employer] 12-22-2021 13:10-0400 Body height 162.56 cm Lissette Shin Other [employer] Other 12-22-2021 13:10-0400 Body temperature 101.2 [degF] Lissette Shin Other [employer] Other 12-22-2021 13:10-0400 Respiratory rate 18 /min Lissette Shin Other [employer] Other 12-22-2021 13:10-0400 SaO2% (BldA) [Mass fraction] 98 % Lissette Shin Other [employer] Other 06-04-2021 18:00-0500 Body height 162.56 cm Lissette Ginty Other [employer] Other 06-04-2021 18:00-0500 Body mass index (BMI) [Ratio] 30.89 kg/m2 Lissette Ginty Other [employer] Other 06-04-2021 18:00-0500 Body temperature 97.3 [degF] Lissette Ginty Other [employer] Other 06-04-2021 18:00-0500 Body weight 81.65 kg Lissette Ginty Other [employer] Other 06-04-2021 18:00-0500 Respiratory rate 18 /min Lissette Ginty Other [employer] Other 06-04-2021 18:00-0500 SaO2% (BldA) [Mass fraction] 98 % Lissette Ginty Other [employer] Other Encounters Encounter Date Encounter Type Care Provider Facility Start: 07-08-2023 End: 07-08-2023 ambulatory JOHN FRANKLIN Not Available Start: 07-08-2023 End: 07-08-2023 Patient encounter procedure Jonh Uriaszio DO Work Phone: [facility] Work Phone: Start: 07-08-2023 End: 07-08-2023 Periodic preventive med est patient 18-39 yrs John Uriaszio DO Work Phone: [facility] OB Comment on above: Well woman exam with routine gynecological exam; Preop examination; Menorrhagia with irregular cycle; Pelvic pain in female Start: 07-08-2023 End: 07-08-2023 Preprocedural examination done John Franklin DO Work Phone: [facility] Start: 06-23-2023 End: 06-23-2023 ambulatory JOHN FRANKLIN Not Available Start: 05-26-2023 End: 05-26-2023 Emergency department patient visit [facility] Start: 05-20-2023 End: 05-20-2023 ambulatory ROSARIO AICHYOLANDAZ Not Available Start: 10-23-2022 End: 10-23-2022 Emergency department patient visit [facility] Start: 10-23-2022 End: 10-23-2022 Emergency department patient visit [facility] DO Work Phone: [facility] ED Comment on above: Viral syndrome (Prim waqas Dx); Migraine without aura and with status migrainosus, not intractable; Sinus congestion Start: 10-22-2022 End: 10-22-2022 Emergency department patient visit [facility] Start: 10-22-2022 End: 10-22-2022 Emergency department patient visit Denisse Ann MD Work Phone: [facility] ED Comment on above: Nonintractable heada audie, unspecified chronicity pattern, unspecified headache type (Primary Dx); Acute recurrent sinusitis, unspecified location Start: 07-19-2022 End: 07-19-2022 ambulatory TABULAR TYPIST ROSARIO AICHHOLZ Facility:H1 Start: 05-20-2022 End: 05-20-2022 ambulatory TABULAR TYPIST ROSARIO AICHHOLZ Facility:[facility]1 Start: 05-01-2022 End: 05-01-2022 ambulatory TABULAR TYPIST ROSARIO AICHHOLZ Facility:[facility]1 Start: 04-23-2022 End: 04-24-2022 ambulatory TABULAR TYPIST ROSARIO AICHHOLZ Facility:[facility]1 Start: 02-08-2022 End: 02-08-2022 ambulatory TABULAR TYPIST ROSARIO AICHHOLZ Facility:[facility]1 Start: 12-31-2021 End: 12-31-2021 ambulatory TABULAR TYPIST ROSARIO ESCAMILLA Facility:[facility]1 Start: 12-30-2021 End: 12-31-2021 ambulatory TABULAR TYPIST ROSARIO FRANCINE Facility:[facility]1 Start: 12-24-2021 End: 12-24-2021 ambulatory TABULAR TYPIST ROSARIO ESCAMILLA Facility:[facility]1 Start: 12-23-2021 End: 12-23-2021 ambulatory TABULAR TYPIST ROSARIO FRANCINE Facility:[facility]1 Start: 12-22-2021 End: 12-22-2021 ambulatory Lissette Shin Other [employer] Other Start: 12-22-2021 Office outpatient vi sit 25 minutes Lissette Shin [facility] Start: 06-04-2021 End: 06-04-2021 ambulatory Lissette Ginty Other [employer] Other Start: 06-04-2021 Office outpatient vi sit 15 minutes Lissette Ginty [facility] Procedures Date Procedure Procedure Detail Performing Clinician Start: 10-23-2022 Radiologic exam ches t single view Belen J Spencer DO Work Phone: Start: 10-23-2022 Ct head/brain w/o contrast material Belen J Spencer DO Work Phone: Start: 10-23-2022 COVID-19 RAPID Belne J Spencer DO Work Phone: Start: 10-23-2022 Iaadiadoo influenza Noah eria J Spencer DO Work Phone: Start: 10-23-2022 Basic metabolic pane l calcium total Belen J Spencer DO Work Phone: Start: 10-23-2022 C-reactive protein Jave jimbo J Spencer DO Work Phone: Start: 10-23-2022 IMMATURE PLATELET FRACTION Belen J Spencer DO Work Phone: Start: 10-22-2022 COVID-19 RAPID Denisse Ann MD Work Phone: Plan of Treatment Date Care Activity Detail Author Start: 11-23-2023 End: 11-23-2023 Patient encounter procedure 11/23/2023 3:20 PM EDT Office Visit [facility] [address] [place] [id number] Rosario Escamilla, FBI SPECIAL AGENT [address] [place] [id number] [facility] Start: 11-22-2023 Influenza vaccination Influenza Vacc ine (#1) [facility] Healthcare Comment on above: Postponed from 01/23 (Patient Refused) Start: 07-24-2023 Screening for malign ant neoplasm of cervix Cervical Cancer Screening [facility] Healthcare Comment on above: Postponed from 11/02 (Other Patient Reasons) Start: 12-23-2022 Influenza vaccination Flu vacc ine (Season Ended) [facility] Start: 11-02-2021 Screening for malign ant neoplasm of cervix [facility] Start: 11-02-2012 Screening for malign ant neoplasm of cervix Pap smear [facility] Start: 11-02-2010 DTaP/Tdap/Td vaccine (1 - Tdap) DTaP/Tdap/Td vaccine (1 - Tdap) [facility] Start: 11-02-2009 Hepatitis C screening Hepatitis C sc reen [facility] Start: 11-02-2006 HIV screening HIV screen [facility] Start: 2003 Depression Screen Depression Screen [facility] Start: 11-02-1997 Pneumococcal 0-64 ye ars Vaccine (1 - PCV) Pneumococcal 0-64 years Vaccine (1 - PCV) [facility] Start: 11-02-1992 Varicella vaccine (1 of 2 - 2-dose childhood series) Varicella vaccine (1 of 2 - 2-dose childhood series) [facility] Start: 05-04-1992 COVID-19 Vaccine (#1) COVID-19 Vacci ne (#1) [facility] Cytology Cervical or vaginal smear or scraping study Pap Smear Pathology and Cytology Routine Well woman exam with routine gynecological exam Ordered: 07/08/2023 [employer] Work Phone: Comment on above: Ordered: 07/08/2023 Human papilloma viru s DNA [Presence] in Unspecified specimen by Probe with amplification HPV DNA probe, amplified Microbiology Routine Well woman exam with routine gynecological exam Ordered: 07/08/2023 [employer] Comment on above: Ordered: 07/08/2023 End: 10-23-2022 Respiratory Panel, Molecular, with COVID-19 (Restricted: peds pts or suitable admitted adults) [facility] [employer] Work Phone: Comment on above: One Time for 1 Occur rences starting 10/23/2022 until 10/23/2022 Payers Date Payer Category Payer Unknown [id number] 2022 Medicaid [facility] [employer] [place] [id number] 2022-Present [address] [place] [address] [id number] 1991 Unknown [id number] 1991 Unknown [id number] 1991 Unknown [id number] 1991 Unknown [id number] 1991 Unknown [id number] [id number] 1991 Unknown [id number] [id number] 1991 Unknown [id number] [id number] 1991 Unknown [id number] [id number] 1991 Unknown [id number] [id number] 1991 Unknown [id number] [id number] 1991 Unknown [id number] [id number] 1991 Unknown [id number] [id number] 1991 Unknown [id number] [id number] 1991 Unknown [id number] [id number] 1991 Unknown [id number] [id number] 1958 Medicaid [id number] 1958 Unknown [id number] Social History Date Type Detail Facility Unknown if ever smoked [facility] [employer] Other Start: 05-21-2023 Sex Assigned At [facility] [employer] Other Start: 10-22-2022 End: 05-19-2023 Tobacco smoking status CTIS Smokes tobacco daily [employer] Phone: History of tobacco use Cigarette Smoker [employer] Phone: Start: 10-22-2022 Tobacco use and exposure Smokeless tobacco non-user [employer] Phone: Start: 10-22-2022 End: 10-23-2022 History SDOH Alcohol Frequency 1 [employer] Phone: Start: 1990 Sex Assigned At Not on file [employer] ON [employer] Phone: Start: 10-23-2022 History SDOH Alcohol Std Drinks 0 BON [employer] Phone: Start: 05-19-2023 End: 05-21-2023 Cigarettes smoked current (pack per day) - Reported 0.5 [facility] History of Present illness Narrative 07-08-2023 Aurora ValleADAMS - 07/08/2023 2:50 PM EST Note Date & Type Note Facility 07-08-2023 History of Presen t illness Narrative Reason for Appointment: Patient ID: Lina Alcantar is a 32 y.o. female who presents for Well Women Visit and Pre-op Visit Patient presents today for a Pre Op appointment. Patient is scheduled to undergo Diagnostic Laparoscopy, possible LINDA, possible FOE, possible BSO on 07/24/[address] Franklin at [facility]. Current Medications: has a current medication list which includes the following prescription(s): acetaminophen, acetaminophen, duloxetine, gabapentin, and lorazepam. Medical History: Active Ambulatory Problems Diagnosis Date Noted Lupus (CMS/HCC) 05/02/2019 KELI (generalized anxiety disorder) (CMS/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 Social History Tobacco Use Smoking status: Every Day Packs/day: 0.50 Years: 10.00 Additional pack years: 0.00 Total pack years: 5.00 Types: Cigarettes Smokeless tobacco: Not on file Substance Use Topics Alcohol use: Not on file Drug use: Not on file Past Surgical History: Procedure Laterality Date TUBAL LIGATION No Known Allergies Review of Systems: Review of Systems Constitutional: Negative. HENT: Negative. Eyes: Negative. Respiratory: Negative. Cardiovascular: Negative. Gastrointestinal: Negative. Genitourinary: Positive for menstrual problem and pelvic pain. Musculoskeletal: Negative. Skin: Negative. Neurological: Negative. All other systems reviewed and are negative. Hematological: Negative. Endocrine: Negative. Allergic/Immunologic: Negative. Objective Physical Exam Constitutional: Appearance: Normal appearance. She is well-developed. Genitourinary: Vulva normal. Breasts: Breasts are soft. Right: Normal. Left: Normal. Cardiovascular: Rate and Rhythm: Normal rate and regular rhythm. Pulmonary: Effort: Pulmonary effort is normal. Breath sounds: Normal breath sounds. Abdominal: General: Bowel sounds are normal. There is no distension. Palpations: Abdomen is soft. Tenderness: There is no abdominal tenderness. There is no guarding or rebound. Musculoskeletal: General: No swelling. Normal range of motion. Right lower leg: No edema. Left lower leg: No edema. Neurological: Mental Status: She is alert and oriented to person, place, and time. Skin: General: Skin is warm and dry. Psychiatric: Mood and Affect: Mood normal. Behavior: Behavior normal. Vitals and nursing note reviewed. Exam conducted with a pullman car repairer present. Vitals: Estimated body mass index is 36.39 kg/m as calculated from the following: Height as of 06/23/23: 5' 4 . Weight as of this encounter: 212 lb. BP: 118/74 Patient's last menstrual period was 06/22/2023. Assessment/Plan Encounter Diagnoses Name Primary? Well woman exam with routine gynecological exam Preop examination Menorrhagia with irregular cycle Pelvic pain in female Annual: Patient presents today for an annual exam. Patient states she is doing well and has complaints of being tired and mood changes - super down at times and manic at others, pt to be referred to psychiatry. Pap was obtained without difficulty. Pre Op: Reviewed labs and ultrasound results with pt in detail. Patient is doing well but has complaints of menorrhagia, dysmenorrhea. I have discussed conservative management vs. surgical management with the patient in detail and patient desires surgical management at this time. Patient will undergo Diagnostic Laparoscopy, possible LINDA, possible FOE, possible BSO on .... Surgical consents were signed, mmc was reviewed, and patient is to proceed to [facility] OR. Follow Up: Patient is to follow up between 1-2 weeks post operative to assess proper healing and recovery from procedure. Documented by: Aurora Valle LPN on behalf of John Franklin DO documented in this encounter [facility] Discharge instructions 10-23-2022 Discharge InstructionsAttachments Note Date & Type Note Facility 10-23-2022 Hospital Discharg e instructions Belen Spencer DO [...] us to take care of you at [facility]. In the next few days you may receive a survey by mail or e-mail asking about the care you received during this visit. Please complete this if you are able, as this feedback helps us provide the best care possible. The following attachments cannot be sent through Care Everywhere.Migraine Headache (Romanian)documented in this encounter [facility] Work Phone: Hospital Discharge instructions 10-22-2022 Discharge InstructionsAttachments Note Date & Type Note Facility 10-22-2022 Hospital Discharg e instructions Denisse Ann MD - 10/22/2022 11:37 AM EDT Continue current medications as prescribed. Take Augmentin as directed until complete. Make sure that you stay well-hydrated. Tylenol and or Motrin as needed for pain at home. Use Polo in place of Tylenol for pain not [...] be sent through Care Everywhere.Acute Sinusitis: Video (Romanian)Headache (Romanian)documented in this encounter [facility] [employer] Work Phone: Evaluation note 12-22-2021 Note Date & Type Note Facility 12-22-2021 Evaluation note Encounter Date Diagnosis Assessment Notes Nov, Fever (ICD-10 - R50.9) Nov, Viral URI (ICD-10 - J06.9) Advised patient that COVID/Influenza A/B PCR test was negative today. [place] test negative. Advised patient that will treat [...] Nov, Fatigue, unspecified type (ICD-10 - R53.83) [employer] Other Evaluation note 06-04-2021 Note Date & [...] Patient care instructions given in writting by [facility] Care At Home document [employer] Other Evaluation note Note Date & Type Note Facility Evaluation note Diagnosis Nonintractable headache, unspecified chronicity pattern, unspecified headache type- Primary Acute recurrent sinusitis, unspecified location documented in this encounter [employer] Phone: Evaluation note Note Date & Type Note Facility Evaluation note Diagnosis Viral syndrome- Primary Unspecified viral infection, in conditions classified elsewhere and of unspecified site Migraine without aura and with status migrainosus, not intractable Migraine without aura, without mention of intractable migraine with status migrainosus Sinus congestion Other diseases of nasal cavity and sinuses documented in this encounter [employer] Phone: Evaluation note Note Date & Type Note Facility Evaluation note Diagnosis Well woman exam with routine gynecological exam Routine gynecological examination Preop examination Unspecified pre-operative examination Menorrhagia with irregular cycle Pelvic pain in female Unspecified symptom associated with female genital organs documented in this encounter [facility] History general Narrative - Reported Note Date & Type Note Facility History general Narrative - Reported Type Surgical History Gallbladder 2010 Surgical History t&a Surgical History tubal ligation [employer] Other History general Narrative - Reported Note Date & Type Note Facility History general Narrative - Reported Type Surgical History Gallbladder 2009 Surgical History t&a Surgical History tubal ligation Hospitalization History see above [employer] Other Summary Purpose Family History No Family History Records FoundNo Family History Records FoundNo Family History Records FoundNo Family History Records Found Advance Directives No Advanced Directives Records FoundNo Advanced Directives Records FoundNo Advanced Directives Records FoundNo Advanced Directives Records Found Additional Source Comments INFORMATION SOURCE (unrecogn ized section and content) DATE CREATED AUTHOR 02/23/2020 Chapin Suarez [facility] DATE CREATED AUTHOR AUTHOR'S ORGANIZ ATION 08/26/2022 [facility] DATE CREATED AUTHOR AUTHOR'S ORGANIZ ATION 05/26/2023 [facility] DATE CREATED AUTHOR AUTHOR'S ORGANIZ ATION 07/10/2023 [facility] EPIC REASON FOR VISIT (unrecogniz ed section and content) Reason Comments Headache Reason Comments Migraine Onset 2 days ago, se en here yesterday for same complaint, was told to come back if symptoms did not improve Congestion Onset 2 days ago Fever Generalized Body Aches Reason Comments Well Women Visit Pre-op Visit Ordered Prescriptions (unrec ognized section and content) [...] Care Teams (unrecognized sec tion and content) Cook Dessert Relationship Specialty Start Date End Date Mani Galvan MD [address] [place] [address] PCP - General Family Medicine 10/23/22 Cook Dessert Relationship Specialty Start Date End Date Luciano Cardona MD PCP - General Family Medicine 12/09/22 Rosario Escamilla NP [address] [place] [address] Referring Physician Nurse Practitioner 12/09/22 FOR RECORDS PERTAINING TO PATIENTS WHO ARE [...] BE BASED ON THE PRIMARY CLINICAL RECORDS. [facility]. provides no warranty or guarantee of the accuracy or completeness of information in this document.
[2023-07-24 08:43] LABS: Basophils Absolute Auto 0.1 10^3/uL (0.0-0.1); Basophils Percent Auto 0.9 % (0.2-2.0); Eosinophils Absolute Auto 0.2 10^3/uL (0.0-0.7); Eosinophils Percent Auto 2.8 % (0.9-7.0); Hematocrit 40.3 % (36.0-48.0); Hemoglobin 13.2 g/dL (12.0-16.0); Immature Granulocytes Abs Auto 0.01 10^3/uL (0.00-0.03); Immature Granulocytes Pct Auto 0.2 % (0.0-0.5); Lymphocytes Percent Auto 36.9 % (20.5-60.0); Mean Corpuscular HGB Conc 32.8 g/dL (29.9-35.2); Mean Corpuscular Volume 91.6 fL (81.0-99.0); Mean Platelet Volume 10.3 fL (9.5-13.5); Monocytes Absolute Auto 0.4 10^3/uL (0.3-0.8); Monocytes Percent Auto 8.1 % (1.7-12.0); Neutrophils Absolute Auto 2.8 10^3/uL (1.4-6.5); Neutrophils Percent Auto 51.1 % (43.0-75.0); Platelet Count 179 10^3/uL (150-450); Red Cell Distribution Width 12.5 % (11.0-15.0); White Blood Count 5.5 10^3/uL (4.0-11.0)
[2023-07-24 09:06] LABS: HCG Quantitative <1 mIU/mL
[2023-07-24] MEDS: LACTATED RINGER'S SOLUTION 1,000 ML 50 ML IV ×2 (09:16→11:10)
--- NOTE | 2023-07-24 11:39 | P.ON_ITS ---
Brief Operative Note Date of procedure: 07/24/23 Pre-op diagnosis: pelvic pain Post-op diagnosis: same as pre-op Procedure: NAME OF PROCEDURE: [diagnostic laparoscopy ] PROCEDURE: The patient was taken back to the Operating Room where she was placed in dorsal lithotomy position after given general anesthesia. The patient was prepped and draped in normal sterile fashion. A sponge stick was placed into the patient's vagina. Attention was turned to the patient's abdomen, where a small umbilical incision was made. The fascia was tented using Solis clamps and the fascia was entered sharply. Confirmation of intraabdominal placement of the 10 mm port was confirmed under direct visualization using a laparoscope. The patient's abdomen was then insufflated using CO2 gas with approximately 4 liters. A second port was placed left laterally, this was done under direct visualization with a 5 mm port. Survey of the patient's abdomen demonstrated normal liver and gallbladder. Survey of the patient's pelvic anatomy demonstrated normal appearing rt and lt ovary and tubes as well as normal appearing uterus. No endometrial implants could be noted, no evidence of any pelvic disease was seen, normal appearing pelvic cavity. All instruments were removed from the patient's abdomen. The patient's abdomen was deinsufflated of CO2 gas. The patient tolerated the procedure well. Sponge stick was removed from the patient's vagina. The mark ent's infraumbilical fascia was closed using #0 Vicryl on a GI needle. The patient's skin was closed laterally and infraumbilically using 4-0 Vicryl. The patient tolerated the procedure well. Sponge, lap and needle counts were correct x 2. The patient was taken to Recovery Room in stable condition. Anesthesia: PILI Surgeon: Montana Franklin Environmental Protection Geologist: Jaylin Langley Estimated blood loss (mL): 5 Pathology: none sent Condition: stable Disposition: PACU Urinary Catheter Management Urinary Catheter Management Urethral: Cath placed during this visit: no
[2023-07-24] MEDS: HYDROCODONE/ACET 5-325 MG TABLET 1 TAB PO (12:37)
== END 2023-07-24 13:10 | disposition home or self-care (01) ==
PROVIDERS: PCP Nurse Practitioner; Visit Provider Obstetrics & Gynecology
PROC: (CPT 840; principal; 2023-07-24 09:55)
DX: N92.1 Excessive and frequent menstruation with irregular cycle (principal); R10.2 Pelvic and perineal pain; M79.7 Fibromyalgia; F41.1 Generalized anxiety disorder; E66.9 Obesity, unspecified; G25.81 Restless legs syndrome; Z98.51 Tubal ligation status; F17.210 Nicotine dependence, cigarettes, uncomplicated; Z68.36 Body mass index [BMI] 36.0-36.9, adult
CPT/HCPCS: 49320; 36415; 84702; 85025; J1094; J2704

== ENCOUNTER 2023-09-23 15:33 | Outpatient (OUT) | payer OTHER, SELFPAY ==
[2023-09-23 16:18] LABS: Basophils Percent Auto 0.6 % (0.2-2.0); Eosinophils Absolute Auto 0.2 10^3/uL (0.0-0.7); Eosinophils Percent Auto 2.1 % (0.9-7.0); Hematocrit 36.4 % (36.0-48.0); Hemoglobin 12.4 g/dL (12.0-16.0); Lymphocytes Absolute Auto 2.1 10^3/uL (1.2-3.8); Lymphocytes Percent Auto 30.1 % (20.5-60.0); Mean Corpuscular HGB Conc 34.1 g/dL (29.9-35.2); Mean Corpuscular Hemoglobin 30.5 pg (26.7-34.0); Mean Corpuscular Volume 89.4 fL (81.0-99.0); Mean Platelet Volume 11.2 fL (9.5-13.5); Monocytes Absolute Auto 0.5 10^3/uL (0.3-0.8); Monocytes Percent Auto 6.8 % (1.7-12.0); Neutrophils Absolute Auto 4.3 10^3/uL (1.4-6.5); Neutrophils Percent Auto 60.4 % (43.0-75.0); Platelet Count 205 10^3/uL (150-450); Red Blood Count 4.07 10^6/uL (4.20-5.40); Red Cell Distribution Width 12.6 % (11.0-15.0); White Blood Count 7.1 10^3/uL (4.0-11.0)
[2023-09-23 16:25] LABS: Erythrocyte Sedimentation Rate 12 mm/hr (<=20)
[2023-09-23 16:28] LABS: C Reactive Protein <0.50 mg/dL (<=0.50)
== END 2023-09-23 15:34 | disposition home or self-care (01) ==
LOC: LAB 15:36
PROVIDERS: PCP Nurse Practitioner; Visit Provider Nurse Practitioner
DX: D69.6 Thrombocytopenia, unspecified (principal)
CPT/HCPCS: 36415; 85025; 85652; 86140

== ENCOUNTER 2024-04-12 10:33 | Outpatient (OUT) | payer OTHER, SELFPAY ==
[2024-04-12 10:54] LABS: Basophils Absolute Auto 0.1 10^3/uL (0.0-0.1); Basophils Percent Auto 0.7 % (0.2-2.0); Eosinophils Absolute Auto 0.2 10^3/uL (0.0-0.7); Eosinophils Percent Auto 2.1 % (0.9-7.0); Hematocrit 41.4 % (36.0-48.0); Hemoglobin 14.1 g/dL (12.0-16.0); Immature Granulocytes Abs Auto 0.01 10^3/uL (0.00-0.03); Immature Granulocytes Pct Auto 0.1 % (0.0-0.5); Lymphocytes Absolute Auto 1.9 10^3/uL (1.2-3.8); Lymphocytes Percent Auto 27.6 % (20.5-60.0); Mean Corpuscular HGB Conc 34.1 g/dL (29.9-35.2); Mean Corpuscular Hemoglobin 31.6 pg (26.7-34.0); Mean Corpuscular Volume 92.8 fL (81.0-99.0); Monocytes Absolute Auto 0.6 10^3/uL (0.3-0.8); Neutrophils Absolute Auto 4.2 10^3/uL (1.4-6.5); Neutrophils Percent Auto 60.5 % (43.0-75.0); Platelet Count 198 10^3/uL (150-450); Red Blood Count 4.46 10^6/uL (4.20-5.40); Red Cell Distribution Width 12.5 % (11.0-15.0)
[2024-04-12 11:33] LABS: Alanine Aminotransferase 19 U/L (14-59); Albumin Globulin Ratio 1.1; Albumin Level 3.8 g/dL (3.4-5.0); Alkaline Phosphatase 99 U/L (46-116); Anion Gap 13.8; Aspartate Amino Transferase 15 U/L (15-37); BUN Creatinine Ratio 7.7; Bilirubin Total 0.5 mg/dL (0.2-1.0); Calcium 8.5 mg/dL (8.5-10.1); Carbon Dioxide 27.4 mmol/L (21.0-32.0); Chloride 105 mmol/L (98-107); Estimated GFR (African America >60 (>=60 mL/min/1.73m^2); Estimated GFR (Non-African Ame >60 (>=60 mL/min/1.73m^2); Globulin 3.4 g/dL; Glucose 85 mg/dL (74-106); Potassium 4.2 mmol/L (3.5-5.1); Sodium 142 mmol/L (136-145); Total Protein 7.2 g/dL (6.4-8.2)
== END 2024-04-12 10:34 | disposition home or self-care (01) ==
LOC: LAB 10:34
PROVIDERS: PCP Obstetrics & Gynecology; Visit Provider Physician Assistant
DX: R10.2 Pelvic and perineal pain (principal)
CPT/HCPCS: 36415; 80053; 85025

== ENCOUNTER 2024-04-19 11:00 | Outpatient (OUT) | payer OTHER, SELFPAY ==
--- NOTE | 2024-04-19 11:02 | US_ITS ---
[address] [address] Patient Name: LINA ALCANTAR MRN: [id number] date: 1990 Sex: F Assigned Patient Location: [facility] Current Patient Location: Accession/Order Number: [id number] Exam Date: 04/19/2024 11:02 Report Date: 04/20/2024 06:27 At the request of: XIN CAGE Procedure: US pelvis w/ transvaginal EXAMINATION: US pelvis w/ transvaginal HISTORY: PELVIC PAIN COMPARISON: Ultrasound pelvis 07/08/2023 TECHNIQUE: Transabdominal and/or transvaginal sonographic examination was performed as indicated by examination type. FINDINGS: UTERUS: Normal size and appearance. Uterus size: 9.0 x 4.6 x 5.6 cm ENDOMETRIUM: Normal homogeneous appearance. IUD within endometrial cavity. Endometrial thickness: 8 mm RIGHT OVARY: Not seen. LEFT OVARY: Normal size and appearance. Elevated resistive index, 0.9. . Ovary size: 3.1 x 2.3 x 2.9 cm CUL-DE-SAC: Unremarkable. No significant free fluid. BLADDER: Unremarkable. OTHER: None. US/US pelvis w/ transvaginal IMPRESSION: 1. Limited examination due to patient body habitus. 2. Normal appearance of the ovary, however, there is suggestion of elevated resistive index (decreased flow) within the ovary. But, evaluation is limited. 3. Right ovary could not be identified. Electronically authenticated by: VIKAS SAUCEDO Date: 04/20/2024 06:27
== END 2024-04-19 11:01 | disposition home or self-care (01) ==
LOC: NOMS 11:00
PROVIDERS: PCP Obstetrics & Gynecology; Visit Provider Physician Assistant
DX: R10.2 Pelvic and perineal pain (principal)
CPT/HCPCS: 76830; 76856

== ENCOUNTER 2024-06-06 20:00 | Outpatient (OUT) | payer OTHER, SELFPAY ==
--- OUTSIDE RECORDS SUMMARY | 2024-06-07 07:41 | XMS_ITS | CCD ---
Author Organization [facility] Care Team Providers Care Securities And Real [employer] Director Name Role Phone Lissette Lee Unavailable Lissette Shin Unavailable AICHHOLZ, AIR CONTROL ELECTRONICS OPERATOR ROSARIO Admitting Unavailable AICHHOLZ, AIR CONTROL ELECTRONICS OPERATOR ROSARIO Attending Unavailable AICHHOLZ, AIR CONTROL ELECTRONICS OPERATOR ROSARIO Primary Care Unavailable AICHHOLZ, AIR CONTROL ELECTRONICS OPERATOR ROSARIO Consulting Unavailable AICHHOLZ, AIR CONTROL ELECTRONICS OPERATOR ROSARIO Admitting Unavailable AICHHOLZ, AIR CONTROL ELECTRONICS OPERATOR ROSARIO Attending Unavailable AICHHOLZ, AIR CONTROL ELECTRONICS OPERATOR ROSARIO Primary Care Unavailable AICHHOLZ, AIR CONTROL ELECTRONICS OPERATOR ROSARIO Consulting Unavailable AICHHOLZ, AIR CONTROL ELECTRONICS OPERATOR ROSARIO Admitting Unavailable AICHHOLZ, AIR CONTROL ELECTRONICS OPERATOR ROSARIO Attending Unavailable AICHHOLZ, AIR CONTROL ELECTRONICS OPERATOR ROSARIO Primary Care Unavailable AICHHOLZ, AIR CONTROL ELECTRONICS OPERATOR ROSARIO Consulting Unavailable AICHHOLZ, AIR CONTROL ELECTRONICS OPERATOR ROSARIO Primary Care Unavailable ROBERT ONTIVEROS Consulting Unavailable ROBERT ONTIVEROS Admitting Unavailable ROBERT ONTIVEROS Attending Unavailable AICHHOLZ, AIR CONTROL ELECTRONICS OPERATOR ROSARIO Primary Care Unavailable MARICEL .GUSTAVOID Admitting Unavailable MARICEL .GUSTAVOID Attending Unavailable MARICEL ., CAROLYNN Consulting Unavailable AICHHOLZ, AIR CONTROL ELECTRONICS OPERATOR ROSARIO Primary Care Unavailable MARICEL .GUSTAVOID Admitting Unavailable MARICEL .GUSTAVOID Attending Unavailable MARICEL ., CAROLYNN Consulting Unavailable AICHHOLZ, AIR CONTROL ELECTRONICS OPERATOR ROSARIO Primary Care Unavailable DR MARCY GU Admitting Unavailable DR MARCY GU Attending Unavailable Vikas Roman Consulting Unavailable DR MARCY GU Consulting Unavailable AICHHOLZ, AIR CONTROL ELECTRONICS OPERATOR ROSARIO Admitting Unavailable AICHHOLZ, AIR CONTROL ELECTRONICS OPERATOR ROSARIO Attending Unavailable AICHHOLZ, AIR CONTROL ELECTRONICS OPERATOR ROSARIO Primary Care Unavailable AICHHOLZ, AIR CONTROL ELECTRONICS OPERATOR ROSARIO Consulting Unavailable AICHHOLZ, AIR CONTROL ELECTRONICS OPERATOR ROSARIO Admitting Unavailable AICHHOLZ, AIR CONTROL ELECTRONICS OPERATOR ROSARIO Attending Unavailable AICHHOLZ, AIR CONTROL ELECTRONICS OPERATOR ROSARIO Primary Care Unavailable AICHHOLZ, AIR CONTROL ELECTRONICS OPERATOR ROSARIO Consulting Unavailable Unavailable Primary Care Provider Unavailjessica Galvan MD, Baldemar Primary Care Provider Luciano Cardona MD Primary Care Provider Aicsally HALL CLERK, Rosario Unavailable Unavailable Primary Care Provider UnavailRosario Black Attending Unavailable Rosario Escamilla Admitting Unavailable Rosario Escamilla Attending Provider [phone] Francine HALL CLERK, Rosario Unavailable Luciano Cardona MD Primary Care Provider [phone] Rigoberto DO, [place] Unavailable RIGOBERTO, [place] Attending [...] tablet 650 mg take 2 tablets by [facility] every six hours as needed for pain [...] ORCO) 5-325 MG per tablet 1 tablet [id number] 200 actuat albuterol 0.09 mg/actuat metered dose [...] oral solution (5 sources) alpha-Adrenergic Agonist, Uncompetitive N-hzvhff-Z-aspartat e Receptor Antagonist, Sigma-1 Agonist Start: 04-28-2024 [...] mg/ml oral solution (1 source) Phenothiazine, Uncompetitive H-zhhhub-U-aspartate Receptor Antagonist, Sigma-1 Agonist Start: 04-22-2024 End: [...] for Pain 20 tablet 05/26/2023 Active levonorgestrel 0.652440 mg/hr intrauterine system (20 sources) Progestin, Progestin-containin [...] 25 mg take 1 capsule by [facility] every six hours as needed diphenhydrAMINE (BENADRYL) [...] MG tablet Indications: KELI (generalized anxiety disorder) (CMS/[facility]) Take 1 tablet (0.5 mg) by mouth [...] AMPARO+probe Ql (Resp) Not detected Not Detected [facility] Comment on above: Rapid NAAT: [...] Nucleic Acid Amplification Specimen Description .NASOPHARYNGEAL SWAB [facility] Flu A/B Ag Detectionon 05-31 Flu A Ag Detection Negative Normal NEG [facility] Comment on above: Result Comment: for Influenza A Antigen Performed By: #### F LUABA #### [address] [place] [address] Clinical Evaluator: Taran De Los Santos MD Flu B Ag Detection Negative Normal NEG [facility] Comment on above: Result Comment: for Influenza B Antigen. Performed By: #### F LUABA #### [address] [place] [address] Clinical Evaluator: Taran De Los Santos MD Rapid influenza A/B antigens on 05-31-2024 FLUAV Ag Ql (Unsp spec) Negative NEGATIVE [facility] Comment on above: for Influenza A Anti gen FLUBV Ag Ql (Unsp spec) Negative NEGATIVE [facility] Comment on above: for Influenza B Anti gen. [facility] [id number] 05-31-2024 SARS-CoV-2 (COVID-19) RNA AMPARO+probe Ql (Unsp spec) Not detected Normal NOTDET [facility] Comment on above: Result Comment: [...] Amplification Performed By: #### C OVRB #### [facility] [address] [place] [address] [place] [address] Clinical Evaluator: Taran De Los Santos MD XR CHEST [...] Lenin Hewitt MD 04/22/24 Final result Normal [facility] XR Chest 2 Viewson No acute cardiopulmonary [...] osseous abnormality. IMPRESSION: No acute cardiopulmonary process. [facility] Radiology Study observation (narrative) [facility] XR Chest 2 ViewsOrdered By: Lenin Hewitt on 04-22-2024 [facility] Work Phone: No Panel Informationon 04-13 STAPHYLOCOCCUS EPIDERMIDIS, HAEMOLYTICUS, LUGDUNENSIS, SAPROPHYTICUS (URINA 0 [facility] care STAPHYLOCOCCUS EPIDERMIDIS, HAEMOLYTICUS, LUGDUNENSIS, SAPROPHYTICUS (URINA Not detected [facility] care URINARY TRACT INFECTION (HTR X)on 04-13-2024 ACINETOBACTER BAUMANII 0 [facility] ACINETOBACTER BAUMANII Not detected [facility] CÉSAR ALBICANS, PARAPSILOSIS, TROPICALIS 0 [facility] CÉSAR ALBICANS, PARAPSILOSIS, TROPICALIS Not detected [facility] CÉSAR GLABRATA 0 [facility] ltare CÉSAR GLABRATA Not detected [facility] CÉSAR KRUSEI 0 [facility] hcare CÉSAR KRUSEI Not detected [facility] CITROBACTER FREUNDII 0 [facility] Healthcare CITROBACTER FREUNDII Not detected NO [facility] ENTEROBACTER AEROGENES, CLOACAE 0 [facility] re ENTEROBACTER AEROGENES, CLOACAE Not detected [facility] re ENTEROCOCCUS FAECALIS, FAECIUM 0 [facility] e ENTEROCOCCUS FAECALIS, FAECIUM Not detected [facility] e ESCHERICHIA COLI 0 [facility] ESCHERICHIA COLI Not detected [facility] KLEBSIELLA PNEUMONIAE, OXYTOCA 0 [facility] are KLEBSIELLA PNEUMONIAE, OXYTOCA Not detected [facility] are MORGANELLA MORGANII 0 [facility] Healthcare MORGANELLA MORGANII Not detected [facility] PROTEUS MIRABILIS, VULGARIS 0 [facility] Healthcare PROTEUS MIRABILIS, VULGARIS Not detected [facility] PSEUDOMONAS AERUGINOSA 0 [facility] PSEUD[facility] AERUGINOSA Not detected [facility] SERRATIA MARCESCENS 0 [facility] SERRATIA MARCESCENS Not detected [facility] STAPHYLOCOCCUS AUREUS 0 [facility] Healthcare STAPHYLOCOCCUS AUREUS Not detected [facility] STREPTOCOCCUS AGALACTIAE (GROUP B STREP) 0 [facility] Healthcare STREPTOCOCCUS AGALACTIAE (GROUP B STREP) Not detected [facility] STREPTOCOCCUS PYOGENES (GROUP A STREP) 0 [facility] Healthcare STREPTOCOCCUS PYOGENES (GROUP A STREP) Not detected [facility] Healthcar e ALL CBC WITH AUTO DIFFon BASOPHILS ABSOLUTE AUTO 0.1 [facility] Basophils/100 WBC (Bld) 0.7 % 0.2 - 2.0 % [facility] Eosinophils/100 WBC (Bld) 2.1 % 0.9 - 7.0 % [facility] Erythrocyte distribution width (RBC) [Ratio] 12.5 % 11.0 - 15.0 % [facility] Hematocrit (Bld) [Volume fraction] 41.4 % 36.0 - 48.0 % [facility] Hemoglobin (Bld) [Mass/Vol] 14.1 g/dL 12.0 - 16.0 g/dL [facility] IMMATURE GRANULOCYTES ABS AUTO 0.01 [facility] Immature granulocytes/100 WBC (Bld) 0.1 % 0.0 - 0.5 % [facility] LYMPHOCYTES ABSOLUTE AUTO 1.[address] [facility] Lymphocytes/100 WBC (Bld) 27.6 % 20.5 - 60.0 % [facility] MCH (RBC) [Entitic mass] 31.6 pg 26.7 - 34.0 pg [facility] MCHC (RBC) [Mass/Vol] 34.1 g/dL 29.9 - 35.2 g/dL [facility] MCV (RBC) [Entitic vol] 92.8 fL 81.0 - 99.0 fL [facility] MONOCYTES ABSOLUTE AUTO 0.6 [facility] Monocytes/100 WBC (Bld) 9 % 1.7 - 12.0 % [facility] NEUTROPHILS ABSOLUTE AUTO 4.[address] [facility] Neutrophils/100 WBC (Bld) 60.5 % 43.0 - 75.0 % [facility] Platelet mean volume (Bld) [Entitic vol] 10 fL 9.5 - 13.5 fL [facility] # [facility].2 [facility] TB PLT 198 [facility] TB RBC 4.46 [facility]car e [facility] WBC 7 [facility] Urinalysis macro (dipstick) panel (U)on 04-12-2024 Bilirubin, UA Negative Negative - (70) +++ mg/dL [facility] Blood, UA Positive Negative - 50 Papito/mcL [facility] Clarity, UA Clear [facility] re Color, UA Yellow [facility] Glucose, UA Negative Negative - 1999(110) ++++ mg/dL [facility] Interpretation and review of laboratory results Abnormal [facility] Ketones, UA Negative Negative - 160(16) ++++ mg/dL [facility] Leukocytes, UA Negative Negative - 500+++ Cedric/mcL [facility] Nitrite, UA Negative Negative - Positive [facility] pH, UA 6 5 - 9 [facility] e Protein, UA Negative Negative - 1999(20) ++++ mg/dL [facility] Spec Grav, UA 1.02 1 - 1.03 [facility] Urobilinogen, UA 1.0 0.2 - 12 mg/dL [facility] e Cult,Urineon 02-10-2024 Cult,Urine Specimen Description .CLEAN CATCH URINE Culture NO SIGNIFICANT GROWTH Report Status FINAL 02/10/2024 Normal [facility] Comment on above: Performed By: #### U RC #### [id number] [place], [place] [id number] Clinical Evaluator: Enrique Ortega MD [facility] [address] [place], [place] [id number] Clinical Evaluator: Taran De Los Santos MD Basic Metabolic Profon 02-07 Anion gap [Moles/Vol] 11 mmol/L Normal 02-07 [facility] Comment on above: Performed By: #### T JONES UMANZOR, CDP ####[facility] , [place] [id number] Lab Director: Taran De Los Santos MD BUN/CRE Ratio 11 Normal 02-11 [facility] Comment on above: Performed By: #### T JONES UMANZOR, CDP ####[facility] [place] , [place] 436[address]83 Lab Director: Taran De Los Santos MD Calcium [Mass/Vol] 9.6 mg/dL Normal 8.6-10.4 [facility] Comment on above: Performed By: #### T JONES UMANZOR, CDP ####[facility] [place] , [place] [id number] Lab Director: Taran De Los Santos MD Chloride [Moles/Vol] 103 mmol/L Normal 98-107 [facility] Comment on above: Performed By: #### JONES CHA, CDP ####[facility] [place] , [place] [id number] Lab Director: Taran De Los Santos MD CO2 [Moles/Vol] 26 mmol/L Normal 20-31 [facility] Comment on above: Performed By: #### T JONES UMANZOR, CDP ####[facility] [place] [address] Lab Director: Taran De Los Santos MD Creatinine [Mass/Vol] 0.9 mg/dL Normal 0.50-0.90 [facility] Comment on above: Performed By: #### T JONES UMANZOR, CDP ####[facility] [place] , [place] [id number] Lab Director: Taran De Los Santos MD GFR/1.73 sq M.predicted among non-blacks MDRD (S/P/Bld) [Vol rate/Area] 85 mL/min/{1.73_m2} Normal >60 [facility] Comment on above: Result Comment: [...] Performed By: #### T JONES UMANZOR, CDP ####[address] , [place] [id number] Lab Director: Taran De Los Santos MD Glucose [Mass/Vol] 98 mg/dL Normal 74-99 [facility] Comment on above: Performed By: #### T JONES UMANZOR, CDP ####[facility] [place] , [place] [id number] Lab Director: Taran De Los Santos MD Potassium [Moles/Vol] 4.0 mmol/L Normal 3.7-5.3 [facility] Comment on above: Performed By: #### T JONES UMANZOR, CDP ####[facility] [place] [address] Lab Director: Taran De Los Santos MD Sodium [Moles/Vol] 140 mmol/L Normal 136-145 [facility] Comment on above: Performed By: #### T JONES UMANZOR, CDP ####[address] , [place] 134[address] Lab Director: Taran De Los Santos MD Urea nitrogen [Mass/Vol] 10 mg/dL Normal 6-20 [facility] Comment on above: Performed By: #### T JONES UMANZOR, CDP ####[address] [place] [address] lab Director: Taran De Los Santos MD CBC with Diffon 02-08-2024 Abs. Basophil 0.03 k/uL Normal 0.00-0.20 [facility] Comment on above: Performed By: #### JONES CHA, CDP ####[address] , [place] [address] Lab Director: Taran De Los Santos MD Abs.Imm.Granulocyte <0.03 Normal 0.00-0.30 [facility] Comment on above: Performed By: #### JONES CHA, CDP ####[address] , [place] [id number] Lab Director: Taran De Los Santos MD Abs.Neutrophil (Seg) 3.12 k/uL Normal 1.50-8.10 [facility] Comment on above: Performed By: #### T JONES UMANZOR, CDP ####[address] , [place] [id number] Lab Director: Taran De Los Santos MD Basophils/100 WBC (Bld) 1 % Normal 0-2 [facility] Comment on above: Performed By: #### JONES CHA, CDP ####[address] , [place] [id number] Lab Director: Taran De Los Santos MD Eosinophils (Bld) [#/Vol] 0.11 10*3/uL Normal 0.00-0.44 [facility] Comment on above: Performed By: #### JONES CHA, CDP ####[address] , [place] [address] [facility] Director: Taarn De Los Santos MD Eosinophils/100 WBC (Bld) 2 % Normal 1-4 [facility] Comment on above: Performed By: #### JONES CHA, CDP ####[address] , [place] [address] lab Director: Taran De Los Santos MD Erythrocyte distribution width (RBC) [Ratio] 12.2 % Normal 11.8-14.4 [facility] Comment on above: Performed By: #### JONES CHA, CDP ####[address] [place] [address] lab Director: Taran De Los Santos MD Hematocrit (Bld) [Volume fraction] 44.3 % Normal 36.3-47.1 [facility] Comment on above: Performed By: #### JONES CHA, CDP ####[address] , [place] [address] Lab Director: Taran De Los Santos MD Hemoglobin (Bld) [Mass/Vol] 15.3 g/dL High 11.9-15.1 [facility] Comment on above: Performed By: #### JONES CHA, CDP ####[address] , [place] [address] lab Director: Taran De Los Santos MD Immature granulocytes/100 WBC (Bld) 0 % Normal 0 [facility] Comment on above: Performed By: #### JONES CHA, CDP ####[address] , [facility] lab Director: Taran De Los Santos MD Lymphocytes (Bld) [#/Vol] 2.44 10*3/uL Normal 1.10-3.70 [facility] Comment on above: Performed By: #### JONES CHA, CDP ####[address] , [place] [id number] Lab Director: Taran De Los Santos MD Lymphocytes/100 WBC (Bld) 40 % Normal 24-43 [facility] Comment on above: Performed By: #### JONES CHA, CDP ####[address] , [facility] Lab Director: Taran De Los Santos MD MCH (RBC) [Entitic mass] 30.9 pg Normal 25.2-33.5 [facility] Comment on above: Performed By: #### JONES CHA, CDP ####[address] , [facility] lab Director: Taran De Los Santos MD MCHC (RBC) [Mass/Vol] 34.5 g/dL Normal 28.4-34.8 [facility] Comment on above: Performed By: #### JONES CHA, CDP ####[address] , [facility] Lab Director: Taran De Los Santos MD MCV (RBC) [Entitic vol] 89.5 fL Normal 82.6-102.9 [facility] Comment on above: Performed By: #### JONES CHA, CDP ####[address] , [facility] Lab Director: Taran De Los Santos MD Monocytes (Bld) [#/Vol] 0.34 10*3/uL Normal 0.10-1.20 [facility] Comment on above: Performed By: #### JONES CHA, CDP ####[address] [place] [address] Lab Director: Taran De Los Santos MD Monocytes/100 WBC (Bld) 6 % Normal 3-12 [facility] Comment on above: Performed By: #### JONES CHA, CDP ####[address] , [place] [id number] Lab Director: Taran De Los Santos MD Neutrophil (Seg) 51 % Normal 36-65 [facility] Comment on above: Performed By: #### T JONES UMANZOR, CDP ####[address] , [place] [id number] Lab Director: Taran De Los Santos MD NRBC Automated 0.0 per 100 WBC Normal 0.0 [facility] Comment on above: Performed By: #### T JONES UMANZOR, CDP ####[address] , [place] [id number] Lab Director: Taran De Los Santos MD Platelet mean volume (Bld) [Entitic vol] 10.8 fL Normal 8.1-13.5 [facility] Comment on above: Performed By: #### T JONES UMANZOR, CDP ####[address] , [place] [id number] Lab Director: Taran De Los Santos MD Platelets (Bld) [#/Vol] 165 10*3/uL Normal 138-453 [facility] Comment on above: Performed By: #### JONES CHA, CDP ####[address] , [place] [id number] Lab Director: Taran De Los Santos MD RBC (Bld) [#/Vol] 4.95 10*6/uL Normal 3.95-5.11 [facility] Comment on above: Performed By: #### T JONES UMANZOR, CDP ####[address] [place] [address] Lab Director: Taran De Los Santos MD WBC (Bld) [#/Vol] 6.1 10*3/uL Normal 3.5-11.3 [facility] Comment on above: Performed By: #### T ROPI, BMP, CDP ####[facility] [place] [address] lab Director: Taran De Los Santos MD [...] Torres Fischer MD 02/08/24 Final result Normal [facility] HCG, ,Urineon 02-07 Beta HCG ( test) Ql (U) Negative Normal NEG [facility] Comment on above: Result Comment: Spec imens with hCG levels near the threshold of the test (25 mIU/mL) may give a negative or indeterminate result. In such cases, another test should be performed with a new specimen in 48-72 hours. If early is suspected clinically in this setting, correlation with quantitative serum b-hCG level is suggested. [facility] confirmed the use of plasma for this test. This has not been cleared or approved by the [place]. Food and Drug Administration. The FDA has determined that such clearance is not necessary. Performed By: #### U HCG, LURDES MARCIALX #### [facility] [address] [place] [id number] Clinical Evaluator: Taran De Los Santos MD Troponinon 02-08-2024 Troponin, High Sens <6 Normal 0-14 [facility] Comment on above: Result Comment: High Sensitivity Troponin values cannot be compared with other Troponin methodologies. Performed By: #### T ROPI, BMP, CDP ####[facility] [place] , [place] [id number] Lab Director: Taran De Los Santos MD UA w/Reflex Cultureon 2023 Bilirubin, SemiQt,Ur Negative Normal NEG [facility] Comment on above: Performed By: #### U HCG, UMICAO, UAX #### [facility] [address] [place] [address] Dr[address] [place], [place] [id number] Clinical Evaluator: Taran De Los Santos MD Blood, Urine 3+ Abnormal NEG [facility] Comment on above: Performed By: #### U HCG, UMICAO, UAX #### [facility] [address] [place] [address] Dr[address] [place], [place] [id number] Clinical Evaluator: Taran De Los Santos MD Clarity (U) SLIGHTLY CLOUDY Abnormal CLEAR [facility] Comment on above: Performed By: #### U HCG, UMICAO, UAX #### [facility] [address] [place] [address] [place] [address] Clinical Evaluator: Taran De Los Santos MD Color (U) Yellow Normal YEL [facility] Comment on above: Performed By: #### U HCG, UMICAO, UAX #### [facility] [address] [place], [place] [id number] Clinical Evaluator: Taran De Los Santos MD Glucose Ql (U) Negative Normal NEG [facility] Comment on above: Performed By: #### U HCG, UMICAO, UAX #### [facility] [address] [place], [place] [id number] Clinical Evaluator: Taran De Los Santos MD Ketones Ql (U) Negative Normal NEG [facility] Comment on above: Performed By: #### U HCG, UMICAO, UAX #### [facility] [address] [place] [address] Dr. [place], [facility] Clinical Evaluator: Taran De Los Santos MD Leukocyte esterase Test strip Ql (U) MODERATE Abnormal NEG [facility] Comment on above: Performed By: #### U HCG, UMICAO, UAX #### [facility] [address] [place] [address] Dr. [place], [place] [address] Clinical Evaluator: Taran De Los Santos MD Nitrite,Ur Negative Normal NEG [facility] Comment on above: Performed By: #### U HCG, UMICAO, UAX #### [address] [place] [id number] Clinical Evaluator: Taran De Los Santos MD PH,Ur 6.0 Normal 5.0-9.0 [facility] Comment on above: Performed By: #### U HCG, UMICAO, UAX #### [facility] [address] [place] [address] Dr[address] [place], [place] [address] Clinical Evaluator: Taran De Los Santos MD Protein Ql (U) Negative Normal NEG [facility] Comment on above: Performed By: #### U HCG, UMICAO, UAX #### [address] [place], [facility] Clinical Evaluator: Taran De Los Santos MD Spec. Canadian,Ur 1.025 High 1.010-1.020 [facility] Comment on above: Performed By: #### U HCG, UMICAO, UAX #### [address] [place] [id number] Clinical Evaluator: Taran De Los Santos MD Urobilinogen,Ur Normal Normal 0.0-1.0 [facility] Comment on above: Performed By: #### U HCG, UMICAO, UAX #### [address] [place] [id number] Clinical Evaluator: Taran De Los Santos MD Urinalysis,Microon 4 Urine WBC's 10 TO 20 Normal 0-5 [facility] Comment on above: Result Comment: LATASHA ECTED ON 02/07 AT 1553: PREVIOUSLY REPORTED 15 TO 30 Performed By: #### U HCG, UMICAO, UAX ####[facility] [place] , [place] [id number] [facility] Director: Taran De Los Santos MD Bacteria 2+ Abnormal NONE [facility] Comment on above: Performed By: #### U HCG, UMICAO, UAX #### [facility] [address] [address] [place], [place] [id number] Clinical Evaluator: Taran De Los Santos MD Performed By: #### U HCG, UMICAO, UAX ####[address] , [place] [id number] [facility] Director: Taran De Los Santos MD Epithelial cells LM Ql (Urine sed) 10 TO 20 Normal 0-25 [facility] Comment on above: Performed By: #### U HCG, UMICAO, UAX #### [address] [place], [place] [id number] Clinical Evaluator: Taran De Los Santos MD Performed By: #### U HCG, UMICAO, UAX ####[facility] , [place] [id number] [facility] Director: Taran De Los Santos MD Urine RBC's 2 TO 5 Normal 0-2 [facility] Comment on above: Performed By: #### U HCG, UMICAO, UAX #### [facility] [address] [place], [place] [id number] Clinical Evaluator: Taran De Los Santos MD Performed By: #### U HCG, UMICAO, UAX ####[facility] [place] [address] Lab Director: Taran De Los Santos MD Urine WBC's 15 TO 30 Normal 0-5 [facility] Comment on above: Performed By: #### U HCG, MIKHAILO, UAX #### [facility] [address] [place] [address] Clinical Evaluator: Taran De Los Santos MD XR CHEST [...] Peter Ugalde MD 02/08/24 Final result Normal [facility] [id number] 02-04-2024 SARS-CoV-2 (COVID-19) RNA AMPARO+probe Ql (Unsp spec) Detected Abnormal NOTDET [facility] Comment on above: Result Comment: [...] this assay. Fact sheet for Healthcare Providers: https://www.fda.gov/media/088207/download Fact sheet for Patients: https://www.fda.gov/media/807533/download Methodology: Isothermal Nucleic Acid Amplification Results reported to the appropriate Health Department Performed By: #### C OVRB #### [facility] [address] [place] [address] Clinical Evaluator: Taran De Los Santos MD XR CHEST [...] Peter Ugalde MD 02/04/24 Final result Normal [facility] Renard 09-23-2023 L Specimen: Received: 09/24/23 Status: SOUHasmukh Ramirez Num: [id number] Spec Type: Impression Subm Dr: NAVJOT Alford Tissues: PATHPER Procedures: PATHREVIEW Age/ Patient Sex Location Account Attending Physician Lina Alcantar 32/F LABELL [id number] NAVJOT Alford SPEC NUM: [id number] RECD: 09/24/23 STATUS: NO RAMIREZ NUM: [id number] NITHIN: 09/23/[address]: NAVJOT Alford ENTERED: 09/24/23 [facility] DR: Mitzi Wolf SPEC TYPE: Impression DEPT: CORINNA Cross ENTERED BY: [id number] RECV BY: [id number] ORDERED: PATHREVIEW ORDERED: PATHREVIEW Pathologist Review Abnormal [...] the serum iron profile as needed CPT: 72565 CBC No results available. -------- -------- Specimen: [id number] Received: 09/24/23 Status: NO Ramirez Num: [id number] Spec Type: Impression Subm Dr: NAVJOT Alford Tissues: PATHPER Procedures: PATHREVIEW -------- Patient: Lina Alcantar [id number] (Continued) -------- Signed (signature on file) Nola Payne MD 09/24/23 1431 Normal [facility] CBC with Auto Differentialon 09-10-2023 Basophils (Bld) [#/Vol] 0.09 10*3/uL [facility] Basophils/100 WBC (Bld) 1 % 0 - 2 % [facility] Eosinophils (Bld) [#/Vol] 0.27 10*3/uL [facility] Eosinophils/100 WBC (Bld) 3 % 1 - 4 % [facility] Erythrocyte distribution width (RBC) [Ratio] 12.5 % 11.8 - 14.4 % [facility] Hematocrit (Bld) [Volume fraction] 40.9 % 36.3 - 47.1 % [facility] Hemoglobin (Bld) [Mass/Vol] 13.9 g/dL 11.9 - 15.1 g/dL [facility] Immature granulocytes (Bld) [#/Vol] 0.00 10*3/uL [facility] Immature granulocytes/100 WBC (Bld) 0 % 0 [facility] Interpretation and review of laboratory results Abnormal [facility] Lymphocytes/100 WBC (Bld) 27 % 24 - 43 % [facility] Lymphocytes/100 WBC (Bld) 2.40 % [facility] MCH (RBC) [Entitic mass] 30.7 pg 25.2 - 33.5 pg [facility] MCHC (RBC) [Mass/Vol] 34.0 g/dL 28.4 - 34.8 g/dL [facility] MCV (RBC) [Entitic vol] 90.3 fL 82.6 - 102.9 fL [facility] Monocytes/100 WBC (Bld) 8 % 3 - 12 % [facility] Monocytes/100 WBC (Bld) 0.71 % [facility] Morphology [place] (Bld) [Interp] Normal [facility] Neutrophils/100 WBC (Bld) 61 % 36 - 65 % [facility] Nucleated RBC/100 WBC (Bld) [Ratio] 0.0 % 0.0 per 100 WBC [facility] Platelet, Fluorescence [address] [facility] Platelets (Bld) [#/Vol] See Reflexed IPF Result [facility] Platelets reticulated/100 platelets Auto (Bld) 19.5 % High 1.1 - 10.3 % [facility] RBC (Bld) [#/Vol] 4.53 10*6/uL 3.95 - 5.1 1 m/uL [facility] Segmented neutrophils/100 WBC (Bld) 5.43 % [facility] WBC other (Bld) [#/Vol] 8.9 [facility] CBC with Diffon 09-10-2023 Abs. Basophil 0.09 k/uL Normal 0.0-0.2 [facility] Comment on above: Performed By: #### R EJEC, CDP ####[address] [place] [address] Lab Director: Taran De Los Santos MD Abs.Imm.Granulocyte 0.00 k/uL Normal 0.00-0.30 [facility] Comment on above: Performed By: #### R JOHN, CDP ####[address] , [facility] Lab Director: Taran De Los Santos MD Abs.Neutrophil (Seg) 5.43 k/uL Normal 1.50-8.10 [facility] Comment on above: Performed By: #### R JOHN, CDP ####[address] [place] [address] Lab Director: Taran De Los Santos MD Basophils/100 WBC (Bld) 1 % Normal 0-2 [facility] Comment on above: Performed By: #### R JOHN, CDP ####[address] , [facility] Lab Director: Taran De Los Santos MD Eosinophils (Bld) [#/Vol] 0.27 10*3/uL Normal 0.00-0.44 [facility] Comment on above: Performed By: #### R EJEC, CDP ####[address] , [place] 0289[address] Lab Director: Taran De Los Santos MD Eosinophils/100 WBC (Bld) 3 % Normal 1-4 [facility] Comment on above: Performed By: #### R EJEC, CDP ####[address] , [place] 9148383 Lab Director: Taran De Los Santos MD Immature granulocytes/100 WBC (Bld) 0 % Normal 0 [facility] Comment on above: Performed By: #### R EJEC, CDP ####[address] , [place] 8188583 Lab Director: Taran De Los Santos MD Lymphocytes (Bld) [#/Vol] 2.40 10*3/uL Normal 1.10-3.70 [facility] Comment on above: Performed By: #### R EJEC, CDP ####[address] , [place] 480[address] Lab Director: Taran De Los Santos MD Lymphocytes/100 WBC (Bld) 27 % Normal 24-43 [facility] Comment on above: Performed By: #### R EJEC, CDP ####[address] , [place] 904[address]83 Lab Director: Taran De Los Santos MD Monocytes (Bld) [#/Vol] 0.71 10*3/uL Normal 0.10-1.20 [facility] Comment on above: Performed By: #### R EJEC, CDP ####[address] [place] [address] Lab Director: Taran De Los Santos MD Monocytes/100 WBC (Bld) 8 % Normal 3-12 [facility] Comment on above: Performed By: #### R EJEC, CDP ####[address] , [place] 9[address]83 Lab Director: Taran De Los Santos MD Morphology [place] (Bld) [Interp] Normal Normal [facility] Comment on above: Performed By: #### R EJEC, CDP ####[address] , [place] [id number] Lab Director: Taran De Los Santos MD Neutrophil (Seg) 61 % Normal 36-65 [facility] Comment on above: Performed By: #### R EJEC, CDP ####[address] , [place] [id number] Lab Director: Taran De Los Santos MD Erythrocyte distribution width (RBC) [Ratio] 12.5 % Normal 11.8-14.4 [facility] Comment on above: Performed By: #### R EJEC, CDP ####[address] , [place] 0100[address] Lab Director: Taran De Los Santos MD Hematocrit (Bld) [Volume fraction] 40.9 % Normal 36.3-47.1 [facility] Comment on above: Performed By: #### R JOHN, CDP ####[address] , [place] 6023[address] Lab Director: Taran De Los Santos MD Hemoglobin (Bld) [Mass/Vol] 13.9 g/dL Normal 11.9-15.1 [facility] Comment on above: Performed By: #### R JOHN, CDP ####[address] , [place] 4055483 Lab Director: Taran De Los Santos MD MCH (RBC) [Entitic mass] 30.7 pg Normal 25.2-33.5 [facility] Comment on above: Performed By: #### R EJEC, CDP ####[address] , [place] 7459[address] Lab Director: Taran De Los Santos MD MCHC (RBC) [Mass/Vol] 34.0 g/dL Normal 28.4-34.8 [facility] Comment on above: Performed By: #### R EJCEDRIC, CDP ####[address] , [place] 5607683 Lab Director: Taran De Los Santos MD MCV (RBC) [Entitic vol] 90.3 fL Normal 82.6-102.9 [facility] Comment on above: Performed By: #### R JOHN, CDP ####[address] , [place] 06[address]83 Lab Director: Taran De Los Santos MD NRBC Automated 0.0 per 100 WBC Normal 0.0 [facility] Comment on above: Performed By: #### R JOHN, CDP ####[address] [place] [address] Lab Director: Taran De Los Santos MD Platelet Count See Reflexed IPF Result Normal 138-453 [facility] Comment on above: Performed By: #### R JOHN, CDP ####[address] , [place] 834[address]83 Lab Director: Taran De Los Santos MD Platelet, Fluoresc. 73 k/uL Low 138-453 [facility] Comment on above: Performed By: #### R JOHN, CDP ####[address] [place] [address] Lab Director: Taran De Los Santos MD PLT, Immature Fract. 19.5 % High 1.1-10.3 [facility] Comment on above: Performed By: #### Jerel LOPEZ, CDP ####[address] , [place] [phone] Director: Taran De Los Santos MD RBC (Bld) [#/Vol] 4.53 10*6/uL Normal 3.95-5.11 [facility] Comment on above: Performed By: #### R JOHN, CDP ####[address] , [place] 6998383 Lab Director: Taran De Los Santos MD WBC (Bld) [#/Vol] 8.9 10*3/uL Normal 3.5-11.3 [facility] Comment on above: Performed By: #### R EJEC, CDP ####[facility] , [place] 4541383 Lab Director: Taran De Los Santos MD Comp Metabolic Profon 2023 Albumin [Mass/Vol] 4.1 g/dL Normal 3.5-5.2 [facility] Comment on above: Performed By: #### C P ####[address] , [place] 9308683 Lab Director: Taran De Los Santos MD Albumin/Glob Ratio 1.4 Normal 1.0-2.5 [facility] Comment on above: Performed By: #### C P ####[address] , [place] 0143[address] Lab Director: Taran De Los Santos MD Alkaline Phos 98 U/L Normal 35-104 [facility] Comment on above: Performed By: #### C P ####[address] , [place] 101[address] Lab Director: Taran De Los Santos MD ALT [Catalytic activity/Vol] 11 U/L Normal 5-33 [facility] Comment on above: Performed By: #### C P ####[address] [place] [address] Lab Director: Taran De Los Santos MD Anion gap [Moles/Vol] 10 mmol/L Normal 9-17 [facility] Comment on above: Performed By: #### C P ####[address] , [place] 2695[address] Lab Director: Taran De Los Santos MD AST [Catalytic activity/Vol] 15 U/L Normal <32 [facility] Comment on above: Performed By: #### C P ####[address] , [place] 9994083 Lab Director: Taran De Los Santos MD Bilirubin [Mass/Vol] 0.2 mg/dL Low 0.3-1.2 [facility] Comment on above: Performed By: #### C P ####[facility] [place] , [place] 713[address]83 Lab Director: Taran De Los Santos MD BUN/CRE Ratio 21 High 9-20 [facility] Comment on above: Performed By: #### C P ####[address] , [place] 230[address] lab Director: Taran De Los Santos MD Calcium [Mass/Vol] 9.1 mg/dL Normal 8.6-10.4 [facility] Comment on above: Performed By: #### C P ####[address] , [place] 9765683 lab Director: Taran De Los Santos MD Chloride [Moles/Vol] 103 mmol/L Normal 98-107 [facility] Comment on above: Performed By: #### C P ####[address] , [place] 1037[address] lab Director: Taran De Los Santos MD CO2 [Moles/Vol] 24 mmol/L Normal 20-31 [facility] Comment on above: Performed By: #### C P ####[address] , [place] 649[address]83 lab Director: Taran De Los Santos MD Creatinine [Mass/Vol] 0.7 mg/dL Normal 0.5-0.9 [facility] Comment on above: Performed By: #### C P ####[address] , [place] [phone] lab Director: Taran De Los Santos MD GFR/1.73 sq M.predicted among non-blacks MDRD (S/P/Bld) [Vol rate/Area] mL/min/{1.73_m2} Normal >60 [facility] Comment on above: Result Comment: [...] tubular secretion. Performed By: #### C P ####[address] [place] [address] Lab Director: Taran De Los Santos MD Glucose [Mass/Vol] 92 mg/dL Normal 70-99 [facility] Comment on above: Performed By: #### C P ####[address] , [place] 9425783 Lab Director: Taran De Los Santos MD Potassium [Moles/Vol] 3.9 mmol/L Normal 3.7-5.3 [facility] Comment on above: Performed By: #### C P ####[address] [place] [address] Lab Director: Taran De Los Santos MD Protein [Mass/Vol] 7.1 g/dL Normal 6.4-8.3 [facility] Comment on above: Performed By: #### C P ####[address] [place] [address] Lab Director: Taran De Los Santos MD Sodium [Moles/Vol] 137 mmol/L Normal 135-144 [facility] Comment on above: Performed By: #### C P ####[address] [place] [address] Lab Director: Taran De Los Santos MD Urea nitrogen [Mass/Vol] 15 mg/dL Normal 6-20 [facility] Comment on above: Performed By: #### C P ####[address] , [place] 039[address]83 Lab Director: Taran De Los Santos MD [facility] Metabolic [facility] 09-10-2023 Albumin [Mass/Vol] 4.1 g/dL 3.5 - 5.2 g/dL [facility] Albumin/Globulin [Mass ratio] 1.4 {ratio} 1.0 - 2.5 [facility] ALP [Catalytic activity/Vol] 98 U/L 35 - 104 U/L [facility] ALT [Catalytic activity/Vol] 11 U/L 5 - 33 U/L [facility] Anion gap [Moles/Vol] 10 mmol/L 9 - 17 mmol/L [facility] AST [Catalytic activity/Vol] 15 U/L NINF - 32 U/L [facility] Bilirubin [Mass/Vol] 0.2 mg/dL Low 0.3 - 1 .2 mg/dL [facility] Calcium [Mass/Vol] 9.1 mg/dL 8.6 - 10. 4 mg/dL [facility] Chloride [Moles/Vol] 103 mmol/L 98 - 10 7 mmol/L [facility] CO2 [Moles/Vol] 24 mmol/L 20 - 31 mmol/L [facility] Creatinine [Mass/Vol] 0.7 mg/dL 0.5 - 0.9 mg/dL [facility] GFR/1.73 sq M.predicted MDRD (S/P/Bld) [Vol rate/Area] - PINF [facility] Comment on above: These results are [...] [Mass/Vol] 92 mg/dL 70 - 99 mg/dL [facility] Interpretation and review of laboratory results Abnormal [facility] Potassium [Moles/Vol] 3.9 mmol/L 3.7 - 5.3 mmol/L [facility] Protein [Mass/Vol] 7.1 g/dL 6.4 - 8.3 g/dL [facility] Sodium [Moles/Vol] 137 mmol/L 135 - 144 mmol/L [facility] Urea nitrogen [Mass/Vol] 15 mg/dL 6 - 20 mg/dL [facility] Urea nitrogen/Creatinine [Mass ratio] 21 mg/mg High 9 - 20 [facility] HCG, ,Urineon 09-09 Beta HCG ( test) Ql (U) Negative Normal NEG [facility] Comment on above: Result Comment: Spec imens with hCG levels near the threshold of the test (25 mIU/mL) may give a negative or indeterminate result. In such cases, another test should be performed with a new specimen in 48-72 hours. If early is suspected clinically in this setting, correlation with quantitative serum b-hCG level is suggested. [facility] has confirmed the use of plasma for this test. This has not been cleared or approved by the U.S. Food and Drug Administration. The FDA has determined that such clearance is not necessary. Performed By: #### U HCG, UAMIC ####[facility] [place] [address] lab Director: Taran De Los Santos MD , Urineon 4 HCG ( test) Ql (U) Negative NEGATIVE [facility] Comment on above: Specimens with hCG l evels near the threshold of the test (25 mIU/mL) may give a negative or indeterminate result. In such cases, another test should be performed with a new specimen in 48-72 hours. If early is suspected clinically in this setting, correlation with quantitative serum b-hCG level is suggested. [facility] has confirmed the use of plasma for this test. This has not been cleared or approved by the U.S. Food and Drug Administration. The FDA has determined that such clearance is not necessary. [facility] Specimen Rejectionon 024 Reason for rejection Unable to perform testing: Specimen hemolyzed. Normal [facility] Comment on above: Performed By: #### R EJEC, CDP ####[facility] [place] [address] lab Director: Taran De Los Santos MD Source of sample .BLOOD Normal [facility] Comment on above: Performed By: #### R EJEC, CDP ####[facility] [place] [address] , [place] [address] Lab Director: Taran De Los Santos MD Test ordered CP Normal [facility] Comment on above: Performed By: #### R EJEC, CDP ####[facility] [place] [address] , [place] [id number] Lab Director: Taran De Los Santos MD Urinalysis w/ Microon 2023 Amorphous sediment LM Ql (Urine sed) 1+ Abnormal [facility] Comment on above: Performed By: #### U HCG, UAMIC ####[address] [place] [address] Lab Director: Taran De Los Santos MD Bacteria 3+ Abnormal NONE [facility] Comment on above: Performed By: #### U HCG, UAMIC ####[address] [place] [address] Lab Director: Taran De Los Santos MD Bilirubin, SemiQt,Ur Negative Normal NEG [facility] Comment on above: Performed By: #### U HCG, UAMIC ####[address] [place] [address] Lab Director: Taran De Los Santos MD Blood, Urine Negative Normal NEG [facility] Comment on above: Performed By: #### U HCG, UAMIC ####[address] [place] [address] Lab Director: Taran De Los Santos MD Clarity (U) SLIGHTLY CLOUDY Abnormal CLEAR [facility] Comment on above: Performed By: #### U HCG, UAMIC ####[address] [place] [address] Lab Director: Taran De Los Santos MD Color (U) Yellow Normal YEL [facility] Comment on above: Performed By: #### U HCG, UAMIC ####[address] , [place] [address] Lab Director: Taran De Los Santos MD Epithelial cells LM Ql (Urine sed) 2 TO 5 Normal 0-25 [facility] Comment on above: Performed By: #### U HCG, UAMIC ####[address] , [place] 9876[address] Lab Director: Taran De Los Santos MD Glucose Ql (U) Negative Normal NEG [facility] Comment on above: Performed By: #### U HCG, UAMIC ####[address] , [place] 5453883 Lab Director: Taran De Los Santos MD Ketones Ql (U) Negative Normal NEG [facility] Comment on above: Performed By: #### U HCG, UAMIC ####[address] [place] [address] Lab Director: Taran De Los Santos MD Leukocyte esterase Test strip Ql (U) SMALL Abnormal NEG [facility] Comment on above: Performed By: #### U HCG, UAMIC ####[address] , [place] 2833083 Lab Director: Taran De Los Santos MD Nitrite,Ur Negative Normal NEG [facility] Comment on above: Performed By: #### U HCG, UAMIC ####[address] , [place] 1049283 Lab Director: Taran De Los Santos MD PH,Ur 6.5 Normal 5.0-9.0 [facility] Comment on above: Performed By: #### U HCG, UAMIC ####[address] , [place] 5648[address] Lab Director: Taran De Los Santos MD Protein Ql (U) Negative Normal NEG [facility] Comment on above: Performed By: #### U HCG, UAMIC ####[facility] , [place] 1398083 Lab Director: Taran De Los Santos MD Spec. Canadian,Ur 1.025 High 1.010-1.020 [facility] Comment on above: Performed By: #### U HCG, UAMIC ####[facility] [place] [address] lab Director: Taran De Los Santos MD Urine RBC's 0 TO 2 Normal 0-2 [facility] Comment on above: Performed By: #### U HCG, UAMIC ####[address] , [place] 6704683 lab Director: Taran De Los Santos MD Urine WBC's 0 TO 2 Normal 0-5 [facility] Comment on above: Performed By: #### U HCG, UAMIC ####[address] , [place] [phone] lab Director: Taran De Los Santos MD Urobilinogen,Ur Normal Normal 0.0-1.0 [facility] Comment on above: Performed By: #### U HCG, UAMIC ####[address] , [place] 970[address]83 lab Director: Taran De Los Santos MD Urinalysis with Microscopico n 09-10-2023 Amorphous sediment LM Ql (Urine sed) 1+ Abnormal None [facility] Bacteria LM Ql (Urine sed) 3+ Abnormal None [facility] Bilirubin Ql (U) Negative NEGATIVE [facility] Clarity (U) SLIGHTLY CLOUDY Abnormal Clear [facility] Color (U) Yellow Yellow [facility] Epithelial cells LM.HPF (Urine sed) [#/Area] 2 TO 5 [facility] Glucose Test strip (U) [Mass/Vol] Negative NEGATIVE mg/dL [facility] Hemoglobin Auto test strip Ql (U) Negative NEGATIVE [facility] Interpretation and review of laboratory results Abnormal [facility] Ketones (U) [Mass/Vol] Negative NEGATIVE mg/dL [facility] Leukocyte esterase Test strip Ql (U) SMALL Abnormal NEGATIVE [facility] Nitrite Ql (U) Negative NEGATIVE [facility] pH (U) 6.5 [pH] 5.0 - 9.0 [facility] Protein (U) [Mass/Vol] Negative NEGATIVE mg/dL [facility] RBC LM.HPF (Urine sed) [#/Area] 0 TO 2 [facility] Specific gravity (U) [Rel density] 1.025 High 1.010 - 1.020 [facility] Urobilinogen Qn (U) Normal 0.0 - 1. 0 EU/dL [facility] WBC LM.HPF (Urine sed) [#/Area] 0 TO 2 [facility] BMPon 10-23-2022 Anion gap [Moles/Vol] 10 mmol/L 9 - 17 mmol/L [facility] Calcium [Mass/Vol] 8.4 mg/dL Low 8.6 - 10. 4 mg/dL [facility] Chloride [Moles/Vol] 107 mmol/L 98 - 10 7 mmol/L [facility] CO2 [Moles/Vol] 24 mmol/L 20 - 31 mmol/L [facility] Creatinine [Mass/Vol] 0.88 mg/dL 0.50 - 0.90 mg/dL [facility] GFR/1.73 sq M.predicted MDRD (S/P/Bld) [Vol rate/Area] - PINF [facility] Comment on above: These results are [...] [Mass/Vol] 95 mg/dL 70 - 99 mg/dL [facility] Potassium [Moles/Vol] 3.9 mmol/L 3.7 - 5.3 mmol/L [facility] Sodium [Moles/Vol] 141 mmol/L 135 - 144 mmol/L [facility] Urea nitrogen [Mass/Vol] 7 mg/dL 6 - 20 mg/dL [facility] Urea nitrogen/Creatinine [Mass ratio] 8 mg/mg Low 9 - 20 [facility] C-Reactive Proteinon 023 CRP High sensitivity method [Mass/Vol] 34 mg/L High 0.0 - 5.0 mg/L [facility] CBC with Auto Differentialon 10-23-2022 Basophils (Bld) [#/Vol] [facility] Basophils/100 WBC (Bld) 0 % 0 - 2 % [facility] Eosinophils (Bld) [#/Vol] 0.07 10*3/uL [facility] Eosinophils/100 WBC (Bld) 1 % 1 - 4 % [facility] Erythrocyte distribution width (RBC) [Ratio] 13.0 % 11.8 - 14.4 % [facility] Hematocrit (Bld) [Volume fraction] 39.0 % 36.3 - 47.1 % [facility] Hemoglobin (Bld) [Mass/Vol] 13.1 g/dL 11.9 - 15.1 g/dL [facility] Immature granulocytes (Bld) [#/Vol] [facility] Immature granulocytes/100 WBC (Bld) 0 % 0 [facility] Interpretation and review of laboratory results Abnormal [facility] Lymphocytes/100 WBC (Bld) 17 % Low 24 - 43 % [facility] Lymphocytes/100 WBC (Bld) 1.06 % Low [facility] MCH (RBC) [Entitic mass] 31.2 pg 25.2 - 33.5 pg [facility] MCHC (RBC) [Mass/Vol] 33.6 g/dL 28.4 - 34.8 g/dL [facility] MCV (RBC) [Entitic vol] 92.9 fL 82.6 - 102.9 fL [facility] Monocytes/100 WBC (Bld) 13 % High 3 - 12 % [facility] Monocytes/100 WBC (Bld) 0.82 % [facility] Neutrophils/100 WBC (Bld) 69 % High 36 - 65 % [facility] NRBC Automated 0.0 0.0 per 100 WBC [facility] Platelets (Bld) [#/Vol] See Reflexed IPF Result [facility] RBC (Bld) [#/Vol] 4.20 10*6/uL 3.95 - 5.1 1 m/uL [facility] Segmented neutrophils/100 WBC (Bld) 4.40 % [facility] WBC other (Bld) [#/Vol] 6.4 [facility] COVID-19, Rapidon 10-23-2022 SARS-CoV-2 (COVID-19) RdRp gene AMPARO+probe Ql (Resp) Not detected Not Detected [facility] Comment on above: Rapid NAAT: The [...] management decisions. Fact sheet for Healthcare Providers: https://www.fda.gov/media/658959/download Fact sheet for Patients: https://www.fda.gov/media/702903/download Methodology: Isothermal Nucleic Acid Amplification Specimen Description .NASOPHARYNGEAL SWAB [facility] CT Head W/O Contraston 10-23 No [...] acute intracranial abnormality. Paranasal sinus inflammatory disease [employer] Phone: Radiology Study observation (narrative) [employer] Phone: CT Head W/O ContrastOrdered By: Joby Holt on 10-23-2022 [employer] Phone: Immature Platelet Fractionon 10-23-2022 Interpretation and review of laboratory results Abnormal [facility] Platelet, Fluorescence 128 Low [facility] Platelets reticulated/100 platelets Auto (Bld) 5.2 % 1.1 - 10.3 % [facility] Mononucleosis Screenon 10-23 Heterophile Ab IA Ql (Bld) Negative NEGATIVE [facility] No Panel Informationon 10-23 Interpretation and review of laboratory results Abnormal [facility] Rapid influenza A/B antigens on 10-23-2022 FLUAV Ag Ql (Unsp spec) Negative NEGATIVE [facility] Comment on above: for Influenza A Anti gen FLUBV Ag Ql (Unsp spec) Negative NEGATIVE [facility] Comment on above: for Influenza B Anti gen. [facility] Sedimentation Rateon 023 ESR (Bld) [Velocity] 11 mm/h [facility] XR CHEST PORTABLEon 10-24-19 No acute [...] are without acute process. Mild DJD spine. [facility] RIS CONSOLIDATED Damian Keys MD - [...] IMPRESSION: No acute process. Possible mild bronchitis. [facility] Work Phone: Radiology Study observation (narrative) [facility] [employer] Work Phone: XR CHEST PORTABLEOrdered By: Damian Keys on 10-23-2022 [facility] [employer] Work Phone: COVID-19, Rapidon 10-22-2022 SARS-CoV-2 (COVID-19) RdRp gene AMPARO+probe Ql (Resp) Not detected Not Detected [facility] Comment on above: Rapid NAAT: The [...] management decisions. Fact sheet for Healthcare Providers: https://www.fda.gov/media/225276/download Fact sheet for Patients: https://www.fda.gov/media/114793/download Methodology: Isothermal Nucleic Acid Amplification Specimen Description .NASOPHARYNGEAL SWAB [facility] GROUP A STREP CULTUREon 06-26 S. pyogenes Ag Ql (Unsp spec) Culture Observations: NEGATIVE FOR GROUP A STREPTOCOCCUS. Normal [facility] Comment on above: Performed By: #### C BC #### [facility] [address] [place] [address] Dr. Sofia Payne STREPT SCREENon 07-19-2022 STREP SCREEN A Negative Normal NEGATIVE [facility] Comment on above: Performed By: #### C BC #### [facility] [address] [place] [address] Dr. Sofia Payne Covid-19 PCR (CVDTBH)on 04-25 SARS-CoV-2 (COVID-19) RNA AMPARO+probe Ql (Unsp spec) Not detected Normal NOT DETECTED [facility] Comment on above: Result Comment: This test is not yet approved or cleared by the [place] FDA. When there are no FDA-approved or cleared tests available, and other criteria are met, FDA can make tests available under an emergency access mechanism called an Emergency Use Authorization (EUA). The EUA for this test is supported by the [employer] of Health and Human Service's (HHS's) declaration [...] SARS-CoV-2. Performed By: #### C BC #### [facility] [address] [place] [address] Dr. Sofia Payne INFLUENZA A AND B AGon 05-[facility] BELOW Normal [facility] Comment on above: Result Comment: Nega tive for Flu A protein angiten. Infection due to Flu A cannot be ruled out. Flu A angiten in the sample may be below the detection limit of the test. Performed By: #### C BC #### [facility] [address] [place] [address] Dr. Sofia Payne INFLUBNLOCATED WITHIN [facility] SEE BELOW Normal [facility] Comment on above: Result Comment: Nega tive for Flu B protein antigen. Infection due to Flu B cannot be ruled out. Flu B antigen in the sample may be below the detection limit of the test. Performed By: #### C BC #### [facility] [address] [place] [address] Dr. Sofia Payne INFLUENZA A AG Negative Normal NEGATIVE SEE COMMENT [facility] Comment on above: Performed By: #### C BC #### [facility] [address] [place] [address] Dr. Sofia Payne INFLUENZA B AG Negative Normal NEGATIVE SEE COMMENT [facility] Comment on above: Performed By: #### C BC #### [facility] [address] [place] [address] Dr. Sofia Payne INTERNAL CONTROLS Within Normal Limits Normal Wi thin Normal Limits [facility] Comment on above: Performed By: #### C BC #### [facility] [address] [place] [address] Dr. Sofia Payne CBC AUTO DIFFon 05-01-2022 BASO # 0.0 103/ul Normal 0.0-0.1 [facility] Comment on above: Performed By: #### C BC #### [facility] [address] [place] [address] Dr. Sofia Payne Basophils/100 WBC (Bld) 0.4 % Normal 0.2-2.0 [facility] Comment on above: Performed By: #### C BC #### [facility] [address] [place] [address] Dr. Sofia Payne EO # 0.2 103/ul Normal 0.0-0.7 [facility] Comment on above: Performed By: #### C BC #### [facility] [address] [place] [address] Dr. Sofia Payne Eosinophils/100 WBC (Bld) 1.6 % Normal 0.9-7.0 [facility] Comment on above: Performed By: #### C BC #### [facility] [address] [place] [address] Dr. Sofia Payne Erythrocyte distribution width (RBC) [Ratio] 12.8 % Normal 11.0-15.0 [facility] Comment on above: Performed By: #### C BC #### [facility] [address] [place] [address] Dr. Sofia Payne Hematocrit (Bld) [Volume fraction] 41.9 % Normal 36.0-48.0 [facility] Comment on above: Performed By: #### C BC #### [facility] [address] [place] [address] Dr. Sofia Payne Hemoglobin (Bld) [Mass/Vol] 14.6 g/dL Normal 12.0-16.0 [facility] Comment on above: Performed By: #### C BC #### [facility] [address] [place] [address] Dr. Sofia Payne IG # 0.02 10e3/ul Normal 0.00-0.03 [facility] Comment on above: Performed By: #### C BC #### [facility] [address] [place] [address] Dr. Sofia Payne IG % 0.2 % Normal 0.0-0.5 [facility] Comment on above: Performed By: #### C BC #### [facility] [address] [place] [address] Dr. Sofia Payne LYMPH # 1.3 103/ul Normal 1.2-3.8 [facility] Comment on above: Performed By: #### C BC #### [facility] [address] [place] [address] Dr. Sofia Payne Lymphocytes/100 WBC (Bld) 13.8 % Critically low 20.5-60.0 [facility] Comment on above: Performed By: #### C BC #### [facility] [address] [place] [address] Dr. Sofia Payne MANUAL DIFF REQ NO Normal [facility] Comment on above: Performed By: #### C BC #### [facility] [address] [place] [address] Dr. Sofia Payne MCH (RBC) [Entitic mass] 30.3 pg Normal 26.7-34.0 [facility] Comment on above: Performed By: #### C BC #### [facility] [address] [place] [address] Dr. Sofia Payne MCHC (RBC) [Mass/Vol] 34.8 g/dL Normal 29.9-35.2 [facility] Comment on above: Performed By: #### C BC #### [facility] [address] [place] [address] Dr. Sofia Payne MCV (RBC) [Entitic vol] 86.9 fL Normal 81.0-99.0 [facility] Comment on above: Performed By: #### C BC #### [facility] [address] [place] [address] Dr. Sofia Payne MONO # 0.7 103/ul Normal 0.3-0.8 [facility] Comment on above: Performed By: #### C BC #### [facility] [address] [place] [address] Dr. Sofia Payne Monocytes/100 WBC (Bld) 7.8 % Normal 1.7-12.0 [facility] Comment on above: Performed By: #### C BC #### [facility] [address] [place] [address] Dr. Sofia Payne NEUT # 7.2 103/ul Critically high 1.4-6.[address] [facility] Comment on above: Performed By: #### C BC #### [facility] [address] [place] [address] Dr. Sofia Payne Neutrophils/100 WBC (Bld) 76.2 % Critically high 43.0-75.0 [facility] Comment on above: Performed By: #### C BC #### [facility] [address] [place] [address] Dr. Sofia Payne Platelet mean volume (Bld) [Entitic vol] 11.3 fL Normal 9.5-13.5 [facility] Comment on above: Performed By: #### C BC #### [facility] [address] [place] [address] Dr. Sofia Payne PLT 166 103/ul Normal 150-450 [facility] Comment on above: Performed By: #### C BC #### [facility] [address] [place] [address] Dr. Sofia Payne RBC 4.82 106/ul Normal 4.20-5.40 [facility] Comment on above: Performed By: #### C BC #### [facility] [address] [place] [address] Dr. Sofia Payne WBC 9.4 103/ul Normal 4.0-11.0 [facility] Comment on above: Performed By: #### C BC #### [facility] [address] [place] [address] Dr. Sofia Payne Covid-19 PCR (CVDTB)on SARS-CoV-2 (COVID-19) RNA AMPARO+probe Ql (Unsp spec) Not detected Normal NOT DETECTED [facility] Comment on above: Result Comment: When [...] for this test is supported by the [employer] of Health and Human Service's declaration that [...] used). Performed By: #### C VDTBH #### [facility] [address] [place] [address] Dr. Sofia Payne ER URINE PROFILEon 2 Bilirubin Ql (U) SMALL Abnormal NEGATIVE [facility] Comment on above: Performed By: #### C BC #### [facility] [address] [place] [address] Dr. Sofia Payne Clarity (U) CLEAR Normal CLEAR [facility] Comment on above: Performed By: #### C BC #### [facility] [address] [place] [address] Dr. Sofia Payne Color (U) YELLOW Normal YELLOW [facility] Comment on above: Performed By: #### C BC #### [facility] [address] [place] [address] Dr. Sofia Payne ERUD A micrscopic examination will be performed if indicated. Normal [facility] Comment on above: Performed By: #### C BC #### [facility] [address] [address] [address] Sofia Payne Glucose Ql (U) Negative Normal NEGATIVE [facility] Comment on above: Performed By: #### C BC #### [facility] [address] [place] [address] Dr. Sofia Payne Hemoglobin Ql (U) Negative Normal NEGATIVE [facility] Comment on above: Performed By: #### C BC #### [facility] [address] [place] [address] Dr. Sofia Payne Ketones Ql (U) 15 mg/dl Abnormal NEGATIVE [facility] Comment on above: Performed By: #### C BC #### [facility] [address] [place] [address] Dr. Sofia Payne LEUKOCYTES TRACE Abnormal NEGATIVE [facility] Comment on above: Performed By: #### C BC #### [facility] [address] [place] [address] Dr. Sofia Payne Nitrite Ql (U) Negative Normal NEGATIVE [facility] Comment on above: Performed By: #### C BC #### [facility] [address] [place] [address] Dr. Sofia Payne pH (U) 5.5 [pH] Normal 5-9 [facility] Comment on above: Performed By: #### C BC #### [facility] [address] [place] [address] Dr. Sofia Payne SPEC GRAVITY >=1.030 Abnormal 1.005-<=1.025 [facility] Comment on above: Performed By: #### C BC #### [facility] [address] [place] [address] Dr. Sofia Payne UA PROTEIN Negative Normal NEGATIVE/ TRACE [facility] Comment on above: Performed By: #### C BC #### [facility] [address] [place] [address] Dr. Sofia Payne UR MICRO IND INDICATED Normal [facility] Comment on above: Performed By: #### C BC #### [facility] [address] [place] [address] Dr. Sofia Payne Urobilinogen Qn (U) 0.2 {Kristopher'U}/dL Normal 0.2 - 1. 0 [facility] Comment on above: Performed By: #### C BC #### [facility] [address] [place] [address] Dr. Sofia Payne INFLUENZA A AND B AGon 05-01 INFLUANEGH SEE BELOW Normal [facility] Comment on above: Result Comment: Nega tive for Flu A protein angiten. Infection due to Flu A cannot be ruled out. Flu A angiten in the sample may be below the detection limit of the test. Performed By: #### C BC #### [facility] [address] [place] [address] Dr. Sofia Payne INFLUBNEGH SEE BELOW Normal [facility] Comment on above: Result Comment: Nega tive for Flu B protein antigen. Infection due to Flu B cannot be ruled out. Flu B antigen in the sample may be below the detection limit of the test. Performed By: #### C BC #### [facility] [address] [place] [address] Dr. Sofia Payne INFLUENZA A AG Negative Normal NEGATIVE SEE COMMENT [facility] Comment on above: Performed By: #### C BC #### [facility] [address] [place] [address] Dr. Sofia Payne INFLUENZA B AG Negative Normal NEGATIVE SEE COMMENT [facility] Comment on above: Performed By: #### C BC #### [facility] [address] [place] [address] Dr. Sofia Payne INTERNAL CONTROLS Within Normal Limits Normal [place] thin Normal Limits [facility] Comment on above: Performed By: #### C BC #### [facility] [address] [place] [address] Dr. Sofia Payne URon 05-01-2022 , QUAL Negative Normal NEGATIVE [facility] Comment on above: Performed By: #### C BC #### [facility] [address] [place] [address] Dr. Sofia Payne PROF CHEM 8 (BAS METB)on Anion gap [Moles/Vol] 8.7 mmol/L Normal [facility] Comment on above: Performed By: #### C BC #### [facility] [address] [address] [address] Sofia Payne Calcium [Mass/Vol] 8.5 mg/dL Normal 8.5-10.1 [facility] Comment on above: Performed By: #### C BC #### [facility] [address] [address] [address] Sofia Payne Chloride [Moles/Vol] 103 mmol/L Normal 98-107 [facility] Comment on above: Performed By: #### C BC #### [facility] [address] [place] [address] Dr. Sofia Payne CO2 [Moles/Vol] 27.7 mmol/L Normal 21.0-32.0 [facility] Comment on above: Performed By: #### C BC #### [facility] [address] [place] [address] Dr. Sofia Payne Creatinine [Mass/Vol] 0.80 mg/dL Normal 0.55-1.02 [facility] Comment on above: Performed By: #### C BC #### [facility] [address] [place] [address] Dr. Sofia Payne EGFR-AF SWISS >60 Normal >=60 [facility] Comment on above: Performed By: #### C BC #### [facility] [address] [place] [address] Dr. Sofia Payne EGFR-NON AF SWISS >60 Normal >=60 [facility] Comment on above: Performed By: #### C BC #### [facility] [address] [address] [address] Sofia Payne Glucose [Mass/Vol] 89 mg/dL Normal 74-106 [facility] Comment on above: Performed By: #### C BC #### [facility] [address] [place] [address] Dr. Sofia Payne Potassium [Moles/Vol] 3.9 mmol/L Normal 3.5-5.1 [facility] Comment on above: Performed By: #### C BC #### [facility] [address] [place] [address] Dr. Sofia Payne Sodium [Moles/Vol] 136 mmol/L Normal 136-145 [facility] Comment on above: Performed By: #### C BC #### [facility] [address] [place] [address] Dr. Sofia Payne Urea nitrogen [Mass/Vol] 8.0 mg/dL Normal 7.0-18.0 [facility] Comment on above: Performed By: #### C BC #### [facility] [address] [place] [address] Dr. Sofia Payne Urea nitrogen/Creatinine [Mass ratio] 10.0 mg/mg Normal [facility] Comment on above: Performed By: #### C BC #### [facility] [address] [place] [address] Dr. Sofia Payne URINE MICROSCOPIC ONLYon BACTERIA NONE SEEN Normal NONE SEEN [facility] Comment on above: Performed By: #### C BC #### [facility] [address] [place] [address] Dr. Sofia Payne Bacteria identified Cx Nom (U) NOT INDICATED Normal [facility] Comment on above: Performed By: #### C BC #### [facility] [address] [place] [address] Dr. Sofia Payne CAST NONE SEEN Normal NONE SEEN [facility] Comment on above: Performed By: #### C BC #### [facility] [address] [place] [address] Dr. Sofia Payne Crystals LM Nom (Urine sed) NONE SEEN Normal NONE SEEN [facility] Comment on above: Performed By: #### C BC #### [facility] [address] [place] [address] Dr. Sofia Payne Epithelial cells LM Ql (Urine sed) MANY Abnormal NONE SEEN /RARE [facility] Comment on above: Performed By: #### C BC #### [facility] [address] [place] [address] Dr. Sofia Payne MUCOUS TRACE Abnormal NONE SEEN [facility] Comment on above: Performed By: #### C BC #### [facility] [address] [address] [address] Sofia Payne RBC NONE SEEN Abnormal 0-2 [facility] Comment on above: Performed By: #### C BC #### [facility] [address] [address] [address] Sofia Payne WBC 2-5 Abnormal NONE SEEN [facility] Comment on above: Performed By: #### C BC #### [facility] [address] [address] [address] Sofia Payne NEFTALI by IFAon 04-25-2022 Antinuclear Antibodies, IFA Negative Normal [facility] Comment on above: Result Comment: Nega tive <1:80 Borderline 1:80 Positive >1:80 ICAP nomenclature: AC-0 For more information about Hep-2 cell patterns use ANApatterns.org, the official website for the International Consensus on Antinuclear Antibody (NEFTALI) Patterns (ICAP). Performed By: #### C BC #### [facility] [address] [place] [address] Dr. Sofia Payne ANTISTREPTOLYSIN O AB (ASO)o n 04-24-2022 Antistreptolysin O Ab 65.9 IU/mL Normal 0.0-200.0 [facility] Comment on above: Performed By: #### C BC #### [facility] [address] [place] [address] Dr. Sofia Payne RHEUMATOID FACTORon 04-24-20 RA Latex Turbid. <10.0 Normal <14.0 [facility] Comment on above: Performed By: #### C BC #### [facility] [address] [place] [address] Dr. Sofia Payne CBC AUTO DIFFon 04-23-2022 BASO # 0.0 103/ul Normal 0.0-0.1 [facility] Comment on above: Performed By: #### C BC #### [facility] [address] [address] [address] Sofia Payne Basophils/100 WBC (Bld) 0.7 % Normal 0.2-2.0 [facility] Comment on above: Performed By: #### C BC #### [facility] [address] [place] [address] Dr. Sofia Payne EO # 0.1 103/ul Normal 0.0-0.7 [facility] Comment on above: Performed By: #### C BC #### [facility] [address] [place] [address] Dr. Sofia Payne Eosinophils/100 WBC (Bld) 3.3 % Normal 0.9-7.0 [facility] Comment on above: Performed By: #### C BC #### [facility] [address] [place] [address] Dr. Sofia Payne Erythrocyte distribution width (RBC) [Ratio] 12.5 % Normal 11.0-15.0 [facility] Comment on above: Performed By: #### C BC #### [facility] [address] [place] [address] Dr. Sofia Payne Hematocrit (Bld) [Volume fraction] 40.9 % Normal 36.0-48.0 [facility] Comment on above: Performed By: #### C BC #### [facility] [address] [place] [address] Dr. Sofia Payne Hemoglobin (Bld) [Mass/Vol] 14.4 g/dL Normal 12.0-16.0 [facility] Comment on above: Performed By: #### C BC #### [facility] [address] [place] [address] Dr. Sofia Payne IG # 0.01 10e3/ul Normal 0.00-0.03 [facility] Comment on above: Performed By: #### C BC #### [facility] [address] [place] [address] Dr. Sofia Payne IG % 0.2 % Normal 0.0-0.5 [facility] Comment on above: Performed By: #### C BC #### [facility] [address] [place] [address] Dr. Sofia Payne LYMPH # 1.6 103/ul Normal 1.2-3.8 [facility] Comment on above: Performed By: #### C BC #### [facility] [address] [place] [address] Dr. Sofia Payne Lymphocytes/100 WBC (Bld) 36.3 % Normal 20.5-60.0 [facility] Comment on above: Performed By: #### C BC #### [facility] [address] [place] [address] Dr. Sofia Payne MANUAL DIFF REQ NO Normal [facility] Comment on above: Performed By: #### C BC #### [facility] [address] [place] [address] Dr. Sofia Payne MCH (RBC) [Entitic mass] 30.2 pg Normal 26.7-34.0 [facility] Comment on above: Performed By: #### C BC #### [facility] [address] [place] [address] Dr. Sofia Payne MCHC (RBC) [Mass/Vol] 35.2 g/dL Normal 29.9-35.2 [facility] Comment on above: Performed By: #### C BC #### [facility] [address] [place] [address] Dr. Sofia Payne MCV (RBC) [Entitic vol] 85.7 fL Normal 81.0-99.0 [facility] Comment on above: Performed By: #### C BC #### [facility] [address] [place] [address] Dr. Sofia Payne MONO # 0.3 103/ul Normal 0.3-0.8 [facility] Comment on above: Performed By: #### C BC #### [facility] [address] [place] [address] Dr. Sofia Payne Monocytes/100 WBC (Bld) 8.0 % Normal 1.7-12.0 [facility] Comment on above: Performed By: #### C BC #### [facility] [address] [place] [address] Dr. Sofia Payne NEUT # 2.2 103/ul Normal 1.4-6.5 [facility] [facility] Comment [facility]: Performed By: #### C BC #### [facility] [address] [place] [address] Dr. Sofia Payne Neutrophils/100 WBC (Bld) 51.5 % Normal 43.0-75.0 [facility] Comment on above: Performed By: #### C BC #### [facility] [address] [place] [address] Dr. Sofia Payne Platelet mean volume (Bld) [Entitic vol] 11.5 fL Normal 9.5-13.5 [facility] Comment on above: Performed By: #### C BC #### [facility] [address] [place] [address] Dr. Sofia Payne PLT 121 103/ul Critically low 150-450 [facility] Comment on above: Performed By: #### C BC #### [facility] [address] [place] [address] Dr. Sofia Payne RBC 4.77 106/ul Normal 4.20-5.40 [facility] Comment on above: Performed By: #### C BC #### [facility] [address] [place] [address] Dr. Sofia Payne WBC 4.3 103/ul Normal 4.0-11.0 [facility] Comment on above: Performed By: #### C BC #### [facility] [address] [place] [address] Dr. Sofia Payne CRPon 04-23-2022 CRP [Mass/Vol] mg/L Normal <=1.0 [facility] Comment on above: Performed By: #### C RP, CMP, TSH, URIC #### [facility] [address] [place] [address] Dr. Sofia Payne FREE T4on 04-23-2022 Free T4 [Mass/Vol] 1.01 ng/dL Normal 0.76-1.46 [facility] Comment on above: Performed By: #### F T4 #### [facility] [address] [place] [address] Dr. Sofia Payne PROF 14(COMP METB)on 022 Albumin [Mass/Vol] 3.7 g/dL Normal 3.4-5.0 [facility] Comment on above: Performed By: #### C RP, CMP, TSH, URIC #### [facility] [address] [place] [address] Dr. Sofia Payne Albumin/Globulin [Mass ratio] 1.1 {ratio} Normal [facility] Comment on above: Performed By: #### C RP, CMP, TSH, URIC #### [facility] [address] [place] [address] Dr. Sofia Payne ALP [Catalytic activity/Vol] 94 U/L Normal 46-116 [facility] Comment on above: Performed By: #### C RP, CMP, TSH, URIC #### [facility] [address] [place] [address] Dr. Sofia Payne ALT [Catalytic activity/Vol] 14 U/L Normal 14-59 [facility] Comment on above: Performed By: #### C RP, CMP, TSH, URIC #### [facility] [address] [place] [address] Dr. Sofia Payne Anion gap [Moles/Vol] 13.5 mmol/L Normal [facility] Comment on above: Performed By: #### C RP, CMP, TSH, URIC #### [facility] [address] [place] [address] Dr. Sofia Payne AST [Catalytic activity/Vol] 18 U/L Normal 15-37 [facility] Comment on above: Performed By: #### C RP, CMP, TSH, URIC #### [facility] [address] [place] [address] Dr. Sofia Payne Bilirubin [Mass/Vol] 0.3 mg/dL Normal 0.2-1.0 [facility] Comment on above: Performed By: #### C RP, CMP, TSH, URIC #### [facility] [address] [place] [address] Dr. Sofia Payne Calcium [Mass/Vol] 8.5 mg/dL Normal 8.5-10.1 [facility] Comment on above: Performed By: #### C RP, CMP, TSH, URIC #### [facility] [address] [address] [address] Sofia Payne Chloride [Moles/Vol] 104 mmol/L Normal 98-107 [facility] Comment on above: Performed By: #### C RP, CMP, TSH, URIC #### [facility] [address] [address] [address] Sofia Payne CO2 [Moles/Vol] 23.7 mmol/L Normal 21.0-32.0 [facility] Comment on above: Performed By: #### C RP, CMP, TSH, URIC #### [facility] [address] [address] [address] Sofia Payne Creatinine [Mass/Vol] 0.61 mg/dL Normal 0.55-1.02 [facility] Comment on above: Performed By: #### C RP, CMP, TSH, URIC #### [facility] [address] [place] [address] Dr. Sofia Payne EGFR-AF SWISS >60 Normal >=60 [facility] Comment on above: Performed By: #### C RP, CMP, TSH, URIC #### [facility] [address] [place] [address] Dr. Sofia Payne EGFR-NON AF SWISS >60 Normal >=60 [facility] Comment on above: Performed By: #### C RP, CMP, TSH, URIC #### [facility] [address] [place] [address] Dr. Sofia Payne Globulin (S) [Mass/Vol] 3.5 g/dL Normal [facility] Comment on above: Performed By: #### C RP, CMP, TSH, URIC #### [facility] [address] [place] [address] Dr. Sofia Payne Glucose [Mass/Vol] 86 mg/dL Normal 74-106 [facility] Comment on above: Performed By: #### C RP, CMP, TSH, URIC #### [facility] [address] [address] [address] Sofia Payne Potassium [Moles/Vol] 4.1 mmol/L Normal 3.5-5.1 [facility] Comment on above: Performed By: #### C RP, CMP, TSH, URIC #### [facility] [address] [address] [address] Sofia Payne Protein [Mass/Vol] 7.2 g/dL Normal 6.4-8.2 [facility] Comment on above: Performed By: #### C RP, CMP, TSH, URIC #### [facility] [address] [address] [address] Sofia Payne Sodium [Moles/Vol] 137 mmol/L Normal 136-145 [facility] Comment on above: Performed By: #### C RP, CMP, TSH, URIC #### [facility] [address] [place] [address] Dr. Sofia Payne Urea nitrogen [Mass/Vol] 6.0 mg/dL Critically low 7.0-18.0 [facility] Comment on above: Performed By: #### C RP, CMP, TSH, URIC #### [facility] [address] [place] [address] Dr. Sofia Payne Urea nitrogen/Creatinine [Mass ratio] 9.8 mg/mg Normal [facility] Comment on above: Performed By: #### C RP, CMP, TSH, URIC #### [facility] [address] [place] [address] Dr. Sofia Payne [facility] 10 mm/hr Normal <=20 [facility] Comment on above: Performed By: #### C BC #### [facility] [address] [place] [address] Dr. Sofia Payne TSHon 04-23-2022 TSH 2.555 uIU/mL Normal 0.358-3.740 [facility] Comment on above: Performed By: #### C RP, CMP, TSH, URIC #### [facility] [address] [place] [address] Dr. Sofia Payne URIC ACID SERUMon 04-23-2022 Urate [Mass/Vol] 4.2 mg/dL Normal 2.6-6.0 [facility] Comment on above: Performed By: #### C RP, CMP, TSH, URIC #### [facility] [address] [address] [address] Sofia Payne CBC AUTO DIFFon 12-30-2021 BASO # 0.0 103/ul Normal 0.0-0.1 [facility] Comment on above: Performed By: #### C BC #### [facility] [address] [address] [address] Sofia Payne Basophils/100 WBC (Bld) 0.5 % Normal 0.2-2.0 [facility] Comment on above: Performed By: #### C BC #### [facility] [address] [address] [address] Sofia Payne EO # 0.1 103/ul Normal 0.0-0.7 [facility] Comment on above: Performed By: #### C BC #### [facility] [address] [place] [address] Dr. Sofia Payne Eosinophils/100 WBC (Bld) 3.1 % Normal 0.9-7.0 [facility] Comment on above: Performed By: #### C BC #### [facility] [address] [address] [address] Sofia Payne Erythrocyte distribution width (RBC) [Ratio] 13.1 % Normal 11.0-15.0 [facility] Comment on above: Performed By: #### C BC #### [facility] [address] [place] [address] Dr. Sofia Payne Hematocrit (Bld) [Volume fraction] 43.4 % Normal 36.0-48.0 [facility] Comment on above: Performed By: #### C BC #### [facility] [address] [address] [address] Sofia Payne Hemoglobin (Bld) [Mass/Vol] 14.8 g/dL Normal 12.0-16.0 [facility] Comment on above: Performed By: #### C BC #### [facility] [address] [address] [address] Sofia Payne IG # 0.01 10e3/ul Normal 0.00-0.03 [facility] Comment on above: Performed By: #### C BC #### [facility] [address] [place] [address] Dr. Sofia Payne IG % 0.3 % Normal 0.0-0.5 [facility] Comment on above: Performed By: #### C BC #### [facility] [address] [place] [address] Dr. Sofia Payne LYMPH # 1.6 103/ul Normal 1.2-3.8 [facility] Comment on above: Performed By: #### C BC #### [facility] [address] [place] [address] Dr. Sofia Payne Lymphocytes/100 WBC (Bld) 41.2 % Normal 20.5-60.0 [facility] Comment on above: Performed By: #### C BC #### [facility] [address] [place] [address] Dr. Sofia Payne MANUAL DIFF REQ NO Normal [facility] Comment on above: Performed By: #### C BC #### [facility] [address] [place] [address] Dr. Sofia Payne MCH (RBC) [Entitic mass] 30.0 pg Normal 26.7-34.0 [facility] Comment on above: Performed By: #### C BC #### [facility] [address] [place] [address] Dr. Sofia Payne MCHC (RBC) [Mass/Vol] 34.1 g/dL Normal 29.9-35.2 [facility] Comment on above: Performed By: #### C BC #### [facility] [address] [place] [address] Dr. Sofia Payne MCV (RBC) [Entitic vol] 88.0 fL Normal 81.0-99.0 [facility] Comment on above: Performed By: #### C BC #### [facility] [address] [place] [address] Dr. Sofia Payne MONO # 0.4 103/ul Normal 0.3-0.8 [facility] Comment on above: Performed By: #### C BC #### [facility] [address] [place] [address] Dr. Sofia Payne Monocytes/100 WBC (Bld) 9.8 % Normal 1.7-12.0 [facility] Comment on above: Performed By: #### C BC #### [facility] [address] [place] [address] Dr. Sofia Payne NEUT # 1.8 103/ul Normal 1.4-6.5 [facility] Comment on above: Performed By: #### C BC #### [facility] [address] [place] [address] Dr. Sofia Payne Neutrophils/100 WBC (Bld) 45.1 % Normal 43.0-75.0 [facility] Comment on above: Performed By: #### C BC #### [facility] [address] [place] [address] Dr. Sofia Payne Platelet mean volume (Bld) [Entitic vol] 11.9 fL Normal 9.5-13.5 [facility] Comment on above: Performed By: #### C BC #### [facility] [address] [place] [address] Dr. Sofia Payne PLT 142 103/ul Critically low 150-450 [facility] Comment on above: Performed By: #### C BC #### [facility] [address] [place] [address] Dr. Sofia Payne RBC 4.93 106/ul Normal 4.20-5.40 [facility] Comment on above: Performed By: #### C BC #### [facility] [address] [place] [address] Dr. Sofia Payne WBC 3.9 103/ul Critically low 4.0-11.0 [facility] Comment on above: Performed By: #### C BC #### [facility] [address] [place] [address] Dr. Sofia Payne CULTURE URINEon 12-30-2021 CULTURE URINE Culture Observations : HEAVY GROWTH OF MIXED GENITAL SHARAN. NO POTENTIAL PATHOGENS SEEN. Normal [facility] Comment on above: Performed By: #### C BC #### [facility] [address] [place] [address] Dr. Sofia Payne FREE T4on 12-30-2021 Free T4 [Mass/Vol] 0.98 ng/dL Normal 0.76-1.46 [facility] Comment on above: Performed By: #### C BC #### [facility] [address] [place] [address] Dr. Sofia Payne MONOon 12-30-2021 Monocytes (Bld) [#/Vol] Positive Abnormal NEGATIVE [facility] Comment on above: Result Comment: Prev iously reported as: NEGATIVE On 12/30/2021 19:06 By JAW Performed By: #### M CHERYL #### [facility] [address] [place] [address] Dr. Sofia Payne PROF 14(COMP METB)on 022 Albumin [Mass/Vol] 4.1 g/dL Normal 3.4-5.0 [facility] Comment on above: Performed By: #### C BC #### [facility] [address] [place] [address] Dr. Sofia Payne Albumin/Globulin [Mass ratio] 1.2 {ratio} Normal [facility] Comment on above: Performed By: #### C BC #### [facility] [address] [place] [address] Dr. Sofia Payne ALP [Catalytic activity/Vol] 103 U/L Normal 46-116 [facility] Comment on above: Performed By: #### C BC #### [facility] [address] [place] [address] Dr. Sofia Payne ALT [Catalytic activity/Vol] 88 U/L Critically high 14-59 [facility] Comment on above: Performed By: #### C BC #### [facility] [address] [place] [address] Dr. Sofia Payne Anion gap [Moles/Vol] 14.0 mmol/L Normal [facility] Comment on above: Performed By: #### C BC #### [facility] [address] [place] [address] Dr. Sofia Payne AST [Catalytic activity/Vol] 24 U/L Normal 15-37 [facility] Comment on above: Performed By: #### C BC #### [facility] [address] [place] [address] Dr. Sofia Payne Bilirubin [Mass/Vol] 0.3 mg/dL Normal 0.2-1.0 [facility] Comment on above: Performed By: #### C BC #### [facility] [address] [place] [address] Dr. Sofia Payne Calcium [Mass/Vol] 9.2 mg/dL Normal 8.5-10.1 [facility] Comment on above: Performed By: #### C BC #### [facility] [address] [place] [address] Dr. Sofia Payne Chloride [Moles/Vol] 105 mmol/L Normal 98-107 [facility] Comment on above: Performed By: #### C BC #### [facility] [address] [place] [address] Dr. Sofia Payne CO2 [Moles/Vol] 25.4 mmol/L Normal 21.0-32.0 [facility] Comment on above: Performed By: #### C BC #### [facility] [address] [place] [address] Dr. Sofia Payne Creatinine [Mass/Vol] 0.74 mg/dL Normal 0.55-1.02 [facility] Comment on above: Performed By: #### C BC #### [facility] [address] [place] [address] Dr. Sofia Payne EGFR-AF SWISS >60 Normal >=60 [facility] Comment on above: Performed By: #### C BC #### [facility] [address] [place] [address] Dr. Sofia Payne EGFR-NON AF SWISS >60 Normal >=60 [facility] Comment on above: Performed By: #### C BC #### [facility] [address] [place] [address] Dr. Sofia Payne Globulin (S) [Mass/Vol] 3.3 g/dL Normal [facility] Comment on above: Performed By: #### C BC #### [facility] [address] [address] [address] Sofia Payne Glucose [Mass/Vol] 96 mg/dL Normal 74-106 [facility] Comment on above: Performed By: #### C BC #### [facility] [address] [address] [address] Sofia Payne Potassium [Moles/Vol] 4.4 mmol/L Normal 3.5-5.1 [facility] Comment on above: Performed By: #### C BC #### [facility] [address] [address] [address] Sofia Payne Protein [Mass/Vol] 7.4 g/dL Normal 6.4-8.2 [facility] Comment on above: Performed By: #### C BC #### [facility] [address] [place] [address] Dr. Sofia Payne Sodium [Moles/Vol] 140 mmol/L Normal 136-145 [facility] Comment on above: Performed By: #### C BC #### [facility] [address] [address] [address] Sofia Payne Urea nitrogen [Mass/Vol] 10.0 mg/dL Normal 7.0-18.0 [facility] Comment on above: Performed By: #### C BC #### [facility] [address] [address] [address] Sofia Payne Urea nitrogen/Creatinine [Mass ratio] 13.5 mg/mg Normal [facility] Comment on above: Performed By: #### C BC #### [facility] [address] [address] [address] Sofia Payne TSHon 12-30-2021 TSH 1.676 uIU/mL Normal 0.358-3.740 [facility] [place] Comment on above: Performed By: #### C BC #### [facility] [address] [address] [address] Sofia Payne UA RANDOM W/MICROSCOPICon AMORPHOUS CRYSTALS FEW Normal [facility] Comment on above: Performed By: #### C BC #### [facility] [address] [place] [address] Dr. Sofia Payne BACTERIA MODERATE Abnormal NONE SEEN [facility] Comment on above: Performed By: #### C BC #### [facility] [address] [place] [address] Dr. Sofia Payne Bilirubin Ql (U) Negative Normal NEGATIVE [facility] Comment on above: Performed By: #### C BC #### [facility] [address] [place] [address] Dr. Sofia Payne CAST NONE SEEN Normal NONE SEEN [facility] Comment on above: Performed By: #### C BC #### [facility] [address] [place] [address] Dr. Sofia Payne Clarity (U) SL CLOUDY Abnormal CLEAR [facility] Comment on above: Performed By: #### C BC #### [facility] [address] [place] [address] Dr. Sofia Payne Color (U) YELLOW Normal YELLOW [facility] Comment on above: Performed By: #### C BC #### [facility] [address] [place] [address] Dr. Sofia Payne Crystals LM Nom (Urine sed) SEEN Abnormal NONE SEEN [facility] Comment on above: Performed By: #### C BC #### [facility] [address] [place] [address] Dr. Sofia Payne Epithelial cells LM Ql (Urine sed) FEW Abnormal NONE SEEN /RARE [facility] Comment on above: Performed By: #### C BC #### [facility] [address] [place] [address] Dr. Sofia Payne Glucose Ql (U) Negative Normal NEGATIVE [facility] Comment on above: Performed By: #### C BC #### [facility] [address] [place] [address] Dr. Sofia Payne Hemoglobin Ql (U) MODERATE Abnormal NEGATIVE [facility] Comment on above: Performed By: #### C BC #### [facility] [address] [place] [address] Dr. Sofia Payne Ketones Ql (U) Negative Normal NEGATIVE [facility] Comment on above: Performed By: #### C BC #### [facility] [address] [place] [address] Dr. Sofia Payne LEUKOCYTES SMALL Abnormal NEGATIVE [facility] Comment on above: Performed By: #### C BC #### [facility] [address] [place] [address] Dr. Sofia Payne MUCOUS NONE SEEN Normal NONE SEEN [facility] Comment on above: Performed By: #### C BC #### [facility] [address] [place] [address] Dr. Sofia Payne Nitrite Ql (U) Negative Normal NEGATIVE [facility] Comment on above: Performed By: #### C BC #### [facility] [address] [place] [address] Dr. Sofia Payne pH (U) 6.0 [pH] Normal 5-9 [facility] Comment on above: Performed By: #### C BC #### [facility] [address] [place] [address] Dr. Sofia Payne RBC 10-20 Abnormal 0-2 [facility] Comment on above: Performed By: #### C BC #### [facility] [address] [place] [address] Dr. Sofia Payne SPEC GRAVITY >=1.030 Abnormal 1.005-<=1.025 [facility] Comment on above: Performed By: #### C BC #### [facility] [address] [place] [address] Dr. Sofia Payne UA PROTEIN Negative Normal NEGATIVE/ TRACE [facility] Comment on above: Performed By: #### C BC #### [facility] [address] [place] [address] Dr. Sofia Payne Urobilinogen Qn (U) 0.2 {Kristopher'U}/dL Normal 0.2 - 1. 0 [facility] Comment on above: Performed By: #### C BC #### [facility] [address] [place] [address] Dr. Sofia Payne WBC 5-10 Abnormal NONE SEEN [facility] Comment on above: Performed By: #### C BC #### [facility] [address] [place] [address] Dr. Sofia Payne CBC W MANUAL DIFFon 12-25-19 22 ATYPICAL LYMPH # Normal [facility] Comment on above: Performed By: #### C BC #### [facility] [address] [place] [address] Dr. Sofia Payne ATYPICAL LYMPH % Normal [facility] Comment on above: Performed By: #### C BC #### [facility] [address] [place] [address] Dr. Sofia Payne BAND # 0.1 103/ul Normal 0.0-0.3 [facility] Comment on above: Performed By: #### C BC #### [facility] [address] [place] [address] Dr. Sofia Payne BAND % 2 % Normal 0-5 [facility] Comment on above: Performed By: #### C BC #### [facility] [address] [place] [address] Dr. oSfia Payne BASOM # 0.00 103/ul Normal 0.00-0.10 [facility] Comment on above: Performed By: #### C BC #### [facility] [address] [place] [address] Dr. Sofia Payne BASOM % 0.0 % Critically low 0.2-2.0 [facility] Comment on above: Performed By: #### C BC #### [facility] [address] [place] [address] Dr. Sofia Payne BLAST # Normal [facility] Comment on above: Performed By: #### C BC #### [facility] [address] [place] [address] Dr. Sofia Payne BLAST % Normal [facility] Comment on above: Performed By: #### C BC #### [facility] [address] [place] [address] Dr. Sofia Payne CORRECTED WBC Normal 4.0-11.0 [facility] Comment on above: Performed By: #### C BC #### [facility] [address] [place] [address] Dr. Sofia Payne EOS # 0.00 103/ul Normal 0.00-0.70 [facility] Comment on above: Performed By: #### C BC #### [facility] [address] [place] [address] Dr. Sofia Payne EOS% 0.0 % Critically low 0.9-7.0 [facility] Comment on above: Performed By: #### C BC #### [facility] [address] [address] [address] Sofia Payne HCT 40.9 % Normal 36.0-48.0 [facility] Comment on above: Performed By: #### C BC #### [facility] [address] [place] [address] Dr. Sofia Payne HGB 13.8 g/dl Normal 12.0-16.0 [facility] Comment on above: Performed By: #### C BC #### [facility] [address] [place] [address] Dr. Sofia Payne LYMPHM # 0.43 103/ul Critically low 1.20-3.80 [facility] Comment on above: Performed By: #### C BC #### [facility] [address] [place] [address] Dr. Sofia Payne LYMPHM% 15.0 % Critically low 20.5-60.0 [facility] Comment on above: Performed By: #### C BC #### [facility] [address] [place] [address] Dr. Sofia Payne MCH 30.4 pg Normal 26.7-34.0 [facility] Comment on above: Performed By: #### C BC #### [facility] [address] [place] [address] Dr. Sofia Payne MCHC 33.7 g/dl Normal 29.9-35.2 [facility] Comment on above: Performed By: #### C BC #### [facility] [address] [place] [address] Dr. Sofia Payne MCV 90.1 fL Normal 81.0-99.0 [facility] Comment on above: Performed By: #### C BC #### [facility] [address] [address] [address] Sofia Payne METAMYELOCYTE # Normal [facility] Comment on above: Performed By: #### C BC #### [facility] [address] [address] [address] Sofia Payne METAMYELOCYTE % Normal [facility] Comment on above: Performed By: #### C BC #### [facility] [address] [address] [address] Sofia Payne MONOM# 0.41 103/ul Normal 0.30-0.80 [facility] Comment on above: Performed By: #### C BC #### [facility] [address] [place] [address] Dr. Sofia Payne MONOM% 14.0 % Critically high 1.7-12.0 [facility] Comment on above: Performed By: #### C BC #### [facility] [address] [place] [address] Dr. Sofia Payne MPV 11.0 fL Normal 9.5-13.5 [facility] Comment on above: Performed By: #### C BC #### [facility] [address] [place] [address] Dr. Sofia Payne MYELOCYTE # Normal [facility] Comment on above: Performed By: #### C BC #### [facility] [address] [place] [address] Dr. Sofia Payne MYELOCYTE % Normal [facility] Comment on above: Performed By: #### C BC #### [facility] [address] [place] [address] Dr. Sofia Payne NRBC Normal [facility] Comment on above: Performed By: #### C BC #### [facility] [address] [place] [address] Dr. Sofia Payne PLT 98 103/ul Critically low 150-450 [facility] Comment on above: Performed By: #### C BC #### [facility] [address] [place] [address] Dr. Sofia Payne RBC 4.54 106/ul Normal 4.20-5.40 [facility] Comment on above: Performed By: #### C BC #### [facility] [address] [place] [address] Dr. Sofia Payne RDW 13.1 % Normal 11.0-15.0 [facility] Comment on above: Performed By: #### C BC #### [facility] [address] [place] [address] Dr. Sofia Payne SEG # 2.00 103/ul Normal 1.40-6.50 [facility] Comment on above: Performed By: #### C BC #### [facility] [address] [place] [address] Dr. Sofia Payne SEG % 69.0 % Normal 43.0-75.0 [facility] Comment on above: Performed By: #### C BC #### [facility] [address] [place] [address] Dr. Sofia Payne WBC 2.9 103/ul Critically low 4.0-11.0 [facility] Comment on above: Performed By: #### C BC #### [facility] [address] [place] [address] ABD/PELVIS WO CONon [...] VIKAS ROMAN Date: 2021-12-24 12:09 Normal [facility] CULTURE URINEon 12-24-2021 CULTURE URINE Culture Observations : NO GROWTH. Normal [facility] Comment on above: Performed By: #### C BC #### [facility] [address] [place] [address] Dr. Sofia Payne ER URINE PROFILEon 2 Bilirubin Ql (U) SMALL Abnormal NEGATIVE [facility] Comment on above: Performed By: #### C BC #### [facility] [address] [place] [address] Dr. Sofia Payne Clarity (U) SL CLOUDY Abnormal CLEAR [facility] Comment on above: Performed By: #### C BC #### [facility] [address] [place] [address] Dr. Sofia Payne Color (U) DK. ORANGE Abnormal YELLOW [facility] Comment on above: Performed By: #### C BC #### [facility] [address] [place] [address] Dr. Sofia Payne ERUKeyanna A micrscopic examination will be performed if indicated. Normal [facility] Comment on above: Performed By: #### C BC #### [facility] [address] [place] [address] Dr. Sofia Payne Glucose Ql (U) Negative Normal NEGATIVE [facility] Comment on above: Performed By: #### C BC #### [facility] [address] [place] [address] Dr. Sofia Payne Hemoglobin Ql (U) LARGE Abnormal NEGATIVE [facility] Comment on above: Performed By: #### C BC #### [facility] [address] [place] [address] Dr. Sofia Payne Ketones Ql (U) 40 mg/dl Abnormal NEGATIVE [facility] Comment on above: Performed By: #### C BC #### [facility] [address] [place] [address] Dr. Sofia Payne LEUKOCYTES Negative Normal NEGATIVE [facility] Comment on above: Performed By: #### C BC #### [facility] [address] [place] [address] Dr. Sofia Payne Nitrite Ql (U) Negative Normal NEGATIVE [facility] Comment on above: Performed By: #### C BC #### [facility] [address] [place] [address] Dr. Sofia Payne pH (U) 5.5 [pH] Normal 5-9 [facility] Comment on above: Performed By: #### C BC #### [facility] [address] [place] [address] Dr. Sofia Payne Protein (U) [Mass/Vol] 100 mg/dL Abnormal NEGATIVE/ TRACE [facility] Comment on above: Performed By: #### C BC #### [facility] [address] [place] [address] Dr. Sofia Payne SPEC GRAVITY >=1.030 Abnormal 1.005-<=1.025 [facility] Comment on above: Performed By: #### C BC #### [facility] [address] [place] [address] Dr. Sofia Payne UR MICRO IND INDICATED Normal [facility] Comment on above: Performed By: #### C BC #### [facility] [address] [place] [address] Dr. Sofia Payne Urobilinogen Qn (U) 1.0 {Kristopher'U}/dL Normal 0.2 - 1. 0 [facility] Comment on above: Performed By: #### C BC #### [facility] [address] [place] [address] Dr. Sofia Payne PROF 14(COMP METB)on 022 Albumin [Mass/Vol] 3.8 g/dL Normal 3.4-5.0 [facility] Comment on above: Performed By: #### C BC #### [facility] [address] [place] [address] Dr. Sofia Payne Albumin/Globulin [Mass ratio] 1.2 {ratio} Normal [facility] Comment on above: Performed By: #### C BC #### [facility] [address] [place] [address] Dr. Sofia Payne ALP [Catalytic activity/Vol] 78 U/L Normal 46-116 [facility] Comment on above: Performed By: #### C BC #### [facility] [address] [place] [address] Dr. Sofia Payne ALT [Catalytic activity/Vol] 9 U/L Critically low 14-59 [facility] Comment on above: Performed By: #### C BC #### [facility] [address] [place] [address] Dr. Sofia Payne Anion gap [Moles/Vol] 13.4 mmol/L Normal [facility] Comment on above: Performed By: #### C BC #### [facility] [address] [place] [address] Dr. Sofia Payne AST [Catalytic activity/Vol] 13 U/L Critically low 15-37 [facility] Comment on above: Performed By: #### C BC #### [facility] [address] [place] [address] Dr. Sofia Payne Bilirubin [Mass/Vol] 0.2 mg/dL Normal 0.2-1.0 [facility] Comment on above: Performed By: #### C BC #### [facility] [address] [place] [address] Dr. Sofia Payne Calcium [Mass/Vol] 8.2 mg/dL Critically low 8.5-10.1 [facility] Comment on above: Performed By: #### C BC #### [facility] [address] [place] [address] Dr. Sofia Payne Chloride [Moles/Vol] 106 mmol/L Normal 98-107 [facility] Comment on above: Performed By: #### C BC #### [facility] [address] [place] [address] Dr. Sofia Payne CO2 [Moles/Vol] 24.9 mmol/L Normal 21.0-32.0 [facility] Comment on above: Performed By: #### C BC #### [facility] [address] [place] [address] Dr. Sofia Payne Creatinine [Mass/Vol] 0.93 mg/dL Normal 0.55-1.02 [facility] Comment on above: Performed By: #### C BC #### [facility] [address] [address] [address] Sofia Payne EGFR-AF SWISS >60 Normal >=60 [facility] Comment on above: Performed By: #### C BC #### [facility] [address] [place] [address] Dr. Sofia Payne EGFR-NON AF SWISS >60 Normal >=60 [facility] Comment on above: Performed By: #### C BC #### [facility] [address] [place] [address] Dr. Sofia Payne Globulin (S) [Mass/Vol] 3.3 g/dL Normal [facility] Comment on above: Performed By: #### C BC #### [facility] [address] [place] [address] Dr. Sofia Payne Glucose [Mass/Vol] 94 mg/dL Normal 74-106 [facility] Comment on above: Performed By: #### C BC #### [facility] [address] [place] [address] Dr. Sofia Payne Potassium [Moles/Vol] 4.3 mmol/L Normal 3.5-5.1 [facility] Comment on above: Performed By: #### C BC #### [facility] [address] [place] [address] Dr. Sofia Payne Protein [Mass/Vol] 7.1 g/dL Normal 6.4-8.2 [facility] Comment on above: Performed By: #### C BC #### [facility] [address] [place] [address] Dr. Sofia Payne Sodium [Moles/Vol] 140 mmol/L Normal 136-145 [facility] Comment on above: Performed By: #### C BC #### [facility] [address] [address] [address] Sofia Payne Urea nitrogen [Mass/Vol] 7.0 mg/dL Normal 7.0-18.0 [facility] Comment on above: Performed By: #### C BC #### [facility] [address] [place] [address] Dr. Sofia Payne Urea nitrogen/Creatinine [Mass ratio] 7.5 mg/mg Normal [facility] Comment on above: Performed By: #### C BC #### [facility] [address] [place] [address] Dr. Sofia Payne URINE MICROSCOPIC ONLYon BACTERIA SMALL Abnormal NONE SEEN [facility] Comment on above: Performed By: #### C BC #### [facility] [address] [place] [address] Dr. Sofia Payne Bacteria identified Cx Nom (U) INDICATED Normal [facility] Comment on above: Performed By: #### C BC #### [facility] [address] [place] [address] Dr. Sofia Payne CAST NONE SEEN Normal NONE SEEN [facility] Comment on above: Performed By: #### C BC #### [facility] [address] [place] [address] Dr. Sofia Payne Crystals LM Nom (Urine sed) NONE SEEN Normal NONE SEEN [facility] Comment on above: Performed By: #### C BC #### [facility] [address] [place] [address] Dr. Sofia Payne Epithelial cells LM Ql (Urine sed) FEW Abnormal NONE SEEN /RARE [facility] Comment on above: Performed By: #### C BC #### [facility] [address] [place] [address] Dr. Sofia Payne MUCOUS NONE SEEN Normal NONE SEEN [facility] Comment on above: Performed By: #### C BC #### [facility] [address] [place] [address] Dr. Sofia Payne RBC (U) [#/Vol] /uL Abnormal 0-[address] [facility] Comment on above: Performed By: #### C BC #### [facility] [address] [place], [place] [address] Dr. Sofia Payne WBC 2-5 Abnormal NONE SEEN [facility] Comment on above: Performed By: #### C BC #### [facility] [address] [place], [place] [address] Dr. Sofia Payne Covid-19 PCR ([facility])on SARS-CoV-2 (COVID-19) RNA AMPARO+probe Ql (Unsp spec) Not detected Normal NOT DETECTED [facility] Comment on above: Result Comment: This test is not yet approved or cleared by the [place] FDA. When there are no FDA-approved or cleared tests available, and other criteria are met, FDA can make tests available under an emergency access mechanism called an Emergency Use Authorization (EUA). The EUA for this test is supported by the [employer] of Health and Human Service's (HHS's) declaration [...] SARS-CoV-2. Performed By: #### C BC #### [facility] [address] [place], [place] [address] Dr. Sofia Payne COVID/FLU/RSV RT-PCRon 12-22 SARS-CoV-2 (COVID-19) RNA AMPARO+probe Ql (Unsp spec) Negative [employer] Other COVID/FLU/RSV RT-PCR Negative [employer] Other COVID/FLU/RSV RT-PCR [employer] Other Mononucleosis Test, [employer] 0 12-22-2021 Heterophile Ab LA Ql (S) Negative [facility] Other COVID Quick Testingon 2021 Result Negative [facility] Other Quick Strepon 06-04-2021 S. pyogenes Org specific cx Ql (Throat) Negative [facility] Other Quick Strep [facility] Other RAD - Ultrasound Reporton RAD - Ultrasound Report [id number] .00CD:127 Normal [facility] ED Note-Physicianon 02-22-20 20 ED Note-Physician [id number]# 1.00CD:127 [facility] ED Note-Physician [id number]# 1.00CD:127 [facility] ED Note-Physician [id number]# 1.00CD:127 [facility] Physician Referralon 020 Physician Referral [id number]#1. 00CD:127 Normal [facility] Provider Letteron 02-15-2020 Provider Letter February 15, 2020 LINA ALCANTAR [address] [place] [address] LINA ALCANTAR 1990 Dear Lina Alcantar, You [...] [facility] [address], [place] [address] [facility] Formson 02-03-2020 Forms [id number] .00CD:127 Normal [facility] Ambulatory Clinical Summaryo n 02-01-2020 Ambulatory Clinical Summary {[id number] Normal [facility] Patient Educationon 02-01-20 20 Patient Education Family [...] Document Reviewed: 06/18/2012 ExitCare? Patient Information ?2013 [employer]. 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 Bhagat. Pt states that since having her son 5 months ago and she has had 4. Last UTI was 01/14/20 and was at [facility]. This has been ongoing since she [...] of Present Illness Reviewed UA, PVR, and HALL CLERK paperwork. There have been no associated fever [...] (N39.0: Urinary tract infection, site not specified) HALL CLERK referred by Dr. Bhagat for recurrent UTIs. [...] Bactrim 400mg/80mg qd sent to [facility]. All questions/concerns were discussed. Pt. to call [...] Christo LUDWIG, Torres Warner [address] [place] [address]- [phone] Additional Instructions: Patient Education Urinary Tract Infection [...] Protein Urine Dipstick: Negative (02/01/20 09:13:00) Specific [place] Urine Dipstick: 1.025 (02/01/20 09:13:00) Urine Color Urine Dipstick: Yellow (02/01/20 09:13:00) Urobilinogen Urine Dipstick: Normal 0.2-1 EU/dl (02/01/20 09:13:00) pH Urine Dipstick: 5.5 (02/01/20 09:13:00) Normal [facility] Comment on above: Result Comment: Elec tronically Signed By: Christo LUDWIG, Torres Warner\.br\Date and Time Signed: 02/01/20 09:52 EDT\.br\Electronically Co-Signed By: Dolly Duffy MA\.br\Date and Time Co-Signed: 02/01/20 09:29 EDT Vital Signs Date Time Vital Sign Value Performing Clinician Facility 05-31-2024 21:28-0500 Body temperature 97.81 [degF] Rosalie Foster MD Work Phone: [facility] 05-31-2024 21:28-0500 Diastolic blood pressure 87 mm[Hg] Rosalie Foster MD Work Phone: [facility] 05-31-2024 21:28-0500 Heart rate 97 /min Rosalie Foster MD Work Phone: [facility] 05-31-2024 21:28-0500 Respiratory rate 16 /min Rosalie Foster MD Work Phone: [facility] [employer] 05-31-2024 21:28-0500 SaO2% (BldA) [Mass fraction] 100 % Roslaie Foster MD Work Phone: [facility] [employer] 05-31-2024 21:28-0500 Systolic blood pressure 104 mm[Hg] Rosalie Foster MD Work Phone: [facility] [employer] 05-23-2024 09:44-0500 Body mass index (BMI) [Ratio] 36.14 kg/m2 Jefry Lorelei-Nossek PRODUCT DEVELOPMENT ASSISTANT-CHILD LIFE ASSISTANT Work Phone: [facility] 05-23-2024 09:44-0500 Body weight 92.53 kg Jefry Lorelei-Nossek PRODUCT DEVELOPMENT ASSISTANT-CHILD LIFE ASSISTANT Work Phone: [facility] 05-23-2024 09:44-0500 Diastolic blood pressure 82 mm[Hg] Jefry Lorelei-Nossek PRODUCT DEVELOPMENT ASSISTANT-CHILD LIFE ASSISTANT Work Phone: [facility] 05-23-2024 09:44-0500 Heart rate 90 /min Jefry Lorelei-Nossek PRODUCT DEVELOPMENT ASSISTANT-CHILD LIFE ASSISTANT Work Phone: [facility] 05-23-2024 09:44-0500 Systolic blood pressure 118 mm[Hg] Jefry Lorelei-Nossek PRODUCT DEVELOPMENT ASSISTANT-CHILD LIFE ASSISTANT Work Phone: [facility] 05-02-2024 09:44-0500 Body mass index (BMI) [Ratio] 36.31 kg/m2 Jefry Lorelei-Nossek PRODUCT DEVELOPMENT ASSISTANT-CHILD LIFE ASSISTANT Work Phone: [facility] 05-02-2024 09:44-0500 Body weight 92.99 kg Jefry Lorelei-Nossek PRODUCT DEVELOPMENT ASSISTANT-CHILD LIFE ASSISTANT Work Phone: [facility] 05-02-2024 09:44-0500 Diastolic blood pressure 74 mm[Hg] Jerfy Lorelei-Nossek PRODUCT DEVELOPMENT ASSISTANT-CHILD LIFE ASSISTANT Work Phone: [facility] 05-02-2024 09:44-0500 Heart rate 82 /min Jefry Lorelei-Nossek PRODUCT DEVELOPMENT ASSISTANT-CHILD LIFE ASSISTANT Work Phone: [facility] 05-02-2024 09:44-0500 Systolic blood pressure 122 mm[Hg] Jefry Lorelei-Nossek PRODUCT DEVELOPMENT ASSISTANT-CHILD LIFE ASSISTANT Work Phone: [facility] 04-28-2024 11:35-0500 Body height 160 cm Rosario Francine HALL CLERK Work Phone: [facility] 04-28-2024 11:35-0500 Body mass index (BMI) [Ratio] 35.71 kg/m2 Rosario Bettyz HALL CLERK Work Phone: [facility] 04-28-2024 11:35-0500 Body temperature 98.71 [degF] Rosario Bettyz HALL CLERK Work Phone: [facility] 04-28-2024 11:35-0500 Body weight 91.44 kg Rosario Bettyz HALL CLERK Work Phone: [facility] 04-28-2024 11:35-0500 Diastolic blood pressure 78 mm[Hg] Rosario Davidhholz HALL CLERK Work Phone: [facility] 04-28-2024 11:35-0500 Heart rate 93 /min Rosario Ingridholz HALL CLERK Work Phone: [facility] 04-28-2024 11:35-0500 Respiratory rate 19 /min Rosario Davidhholz HALL CLERK Work Phone: [facility] 04-28-2024 11:35-0500 SaO2% (BldA) [Mass fraction] 100 % Rosarioderek Hernandezsally HALL CLERK Work Phone: [facility] 04-28-2024 11:35-0500 Systolic blood pressure 118 mm[Hg] Rosario Hernandezsally HALL CLERK Work Phone: [facility] 04-22-2024 14:15-0500 Body temperature 97.9 [degF] [facility] 04-22-2024 14:15-0500 Diastolic blood pressure 71 mm[Hg] [facility] 04-22-2024 14:15-0500 Heart rate 86 /min [facility] 04-22-2024 14:15-0500 Respiratory rate 22 /min [facility] 04-22-2024 14:15-0500 SaO2% (BldA) [Mass fraction] 100 % [facility] 04-22-2024 14:15-0500 Systolic blood pressure 107 mm[Hg] [facility] 04-13-2024 10:59-0500 Body height 160 cm Rosario Francine HALL CLERK Work Phone: [facility] 04-13-2024 10:59-0500 Body mass index (BMI) [Ratio] 37.41 kg/m2 Rosario Francine HALL CLERK Work Phone: [facility] 04-13-2024 10:59-0500 Body temperature 97.81 [degF] Rosario Francine HALL CLERK Work Phone: [facility] 04-13-2024 10:59-0500 Body weight 95.8 kg Rosario Francine HALL CLERK Work Phone: [facility] 04-13-2024 10:59-0500 Diastolic blood pressure 78 mm[Hg] Rosario Francine HALL CLERK Work Phone: [facility] 04-13-2024 10:59-0500 Heart rate 86 /min Rosario Francine HALL CLERK Work Phone: [facility] 04-13-2024 10:59-0500 Respiratory rate 19 /min Rosario Francine HALL CLERK Work Phone: [facility] 04-13-2024 10:59-0500 SaO2% (BldA) [Mass fraction] 100 % Rosario Francine HALL CLERK Work Phone: [facility] 04-13-2024 10:59-0500 Systolic blood pressure 110 mm[Hg] Rosario Francine HALL CLERK Work Phone: [facility] 04-12-2024 09:51-0500 Body mass index (BMI) [Ratio] 36.87 kg/m2 Vonda Cage PA Work Phone: [facility] 04-12-2024 09:51-0500 Body weight 94.4 kg Vonda Cage PA Work Phone: [facility] 04-12-2024 09:51-0500 Diastolic blood pressure 72 mm[Hg] Vonda Cage PA Work Phone: [facility] 04-12-2024 09:51-0500 Systolic blood pressure 112 mm[Hg] Vonda Cage PA Work Phone: [facility] 03-02-2024 09:29-0400 Body height 160 cm Rosario Escamilla HALL CLERK Work Phone: [facility] 03-02-2024 09:29-0400 Body mass index (BMI) [Ratio] 35.92 kg/m2 Rosario Francine HALL CLERK Work Phone: [facility] 03-02-2024 09:29-0400 Body temperature 98.49 [degF] Rosario Francine HALL CLERK Work Phone: [facility] 03-02-2024 09:29-0400 Body weight 91.99 kg Rosario Francine HALL CLERK Work Phone: [facility] 03-02-2024 09:29-0400 Diastolic blood pressure 80 mm[Hg] Rosario Francine HALL CLERK Work Phone: [facility] 03-02-2024 09:29-0400 Heart rate 82 /min Rosario Francine HALL CLERK Work Phone: [facility] 03-02-2024 09:29-0400 Respiratory rate 18 /min Rosario Aichholz HALL CLERK Work Phone: [facility] 03-02-2024 09:29-0400 SaO2% (BldA) [Mass fraction] 98 % Rosario Aichholz HALL CLERK Work Phone: [facility] 03-02-2024 09:29-0400 Systolic blood pressure 110 mm[Hg] Rosario Aichholz HALL CLERK Work Phone: [facility] 02-18-2024 13:23-0400 Body height 160 cm Rosario Aichholz HALL CLERK Work Phone: [facility] 02-18-2024 13:23-0400 Body mass index (BMI) [Ratio] 35.71 kg/m2 Rosario Aichholz HALL CLERK Work Phone: [facility] 02-18-2024 13:23-0400 Body temperature 98.49 [degF] Rosario Aichholz HALL CLERK Work Phone: [facility] 02-18-2024 13:23-0400 Body weight 91.44 kg Rosario Aichholz HALL CLERK Work Phone: [facility] 02-18-2024 13:23-0400 Diastolic blood pressure 76 mm[Hg] Rosario Aichholz HALL CLERK Work Phone: [facility] 02-18-2024 13:23-0400 Heart rate 84 /min Rosario Aichholz HALL CLERK Work Phone: [facility] 02-18-2024 13:23-0400 Respiratory rate 18 /min Rosario Aichholz HALL CLERK Work Phone: [facility] 02-18-2024 13:23-0400 SaO2% (BldA) [Mass fraction] 98 % Rosario Aichholz HALL CLERK Work Phone: [facility] 02-18-2024 13:23-0400 Systolic blood pressure 110 mm[Hg] Rosario Aichholz HALL CLERK Work Phone: [facility] 02-07-2024 18:36-0400 Body temperature 97.7 [degF] [facility] 02-07-2024 18:36-0400 Diastolic blood pressure 84 mm[Hg] [facility] 02-07-2024 18:36-0400 Heart rate 67 /min [facility] 02-07-2024 18:36-0400 Respiratory rate 15 /min [facility] 02-07-2024 18:36-0400 SaO2% (BldA) [Mass fraction] 98 % [facility] 02-07-2024 18:36-0400 Systolic blood pressure 122 mm[Hg] [facility] 09-10-2023 17:43-0400 Body height 157.5 cm Tiesha Spencer DO Work Phone: [facility] 09-10-2023 17:43-0400 Body mass index (BMI) [Ratio] 38.78 kg/m2 Tiesha Spencer DO Work Phone: [facility] [employer] 09-10-2023 17:43-0400 Body temperature 98.2 [degF] Tiesha Spencer DO Work Phone: [facility] 09-10-2023 17:43-0400 Body weight 96.16 kg Tiesha Spencer DO Work Phone: [facility] [employer] 09-10-2023 17:43-0400 Diastolic blood pressure 83 mm[Hg] Tiesha Spencer DO [facility] [employer] 09-10-2023 17:43-0400 Heart rate 87 /min Tiesha Spencer DO Work Phone: [facility] [employer] 09-10-2023 17:43-0400 Respiratory rate 20 /min Tiesha Spencer DO Work Phone: [facility] [employer] 09-10-2023 17:43-0400 SaO2% (BldA) [Mass fraction] 100 % Tiesha Spencer DO Work Phone: [facility] [employer] 09-10-2023 17:43-0400 Systolic blood pressure 137 mm[Hg] Tiesha Spencer DO Work Phone: [facility] [employer] 07-08-2023 14:32-0500 Body mass index (BMI) [Ratio] 36.39 kg/m2 Montanarayo Kerno DO Work Phone: [facility] 07-08-2023 14:32-0500 Body weight 96.16 kg Montana Kerno DO Work Phone: [facility] 07-08-2023 14:32-0500 Diastolic blood pressure 74 mm[Hg] Montana Kerno DO Work Phone: [facility] 07-08-2023 14:32-0500 Systolic blood pressure 118 mm[Hg] Montana Kerno DO Work Phone: [facility] 10-23-2022 10:15-0400 Body temperature 99.5 [degF] Tiesha Spencer DO Work Phone: [facility] [employer] 10-23-2022 10:15-0400 Diastolic blood pressure 60 mm[Hg] Tiesha Spencer DO Work Phone: [facility] [employer] 10-23-2022 10:15-0400 Heart rate 94 /min Tiesha Spencer DO Work Phone: [facility] [employer] 10-23-2022 10:15-0400 Systolic blood pressure 114 mm[Hg] Tiesha Spencer DO Work Phone: [facility] [employer] 10-23-2022 08:48-0400 SaO2% (BldA) [Mass fraction] 98 % Tiesha Spencer DO Work Phone: [facility] [employer] 10-23-2022 08:27-0400 Body mass index (BMI) [Ratio] 32.61 kg/m2 Tiesha Spencer DO Work Phone: [facility] [employer] 10-23-2022 08:27-0400 Body weight 86.18 kg Tiesha Spencer DO Work Phone: [facility] [employer] 10-23-2022 08:27-0400 Respiratory rate 16 /min Tiesha Spencer DO Work Phone: [facility] [employer] 10-22-2022 09:47-0400 Diastolic blood pressure 70 mm[Hg] Nancy West MD Work Phone: [facility] [employer] 10-22-2022 09:47-0400 Systolic blood pressure 105 mm[Hg] Nancy West MD Work Phone: [facility] [employer] 10-22-2022 09:42-0400 Body height 162.6 cm Nancy West MD Work Phone: [facility] [employer] 10-22-2022 09:42-0400 Body mass index (BMI) [Ratio] 32.61 kg/m2 Nancy West MD Work Phone: [facility] [employer] 10-22-2022 09:42-0400 Body temperature 100.09 [degF] Nancy West MD Work Phone: [facility] [employer] 10-22-2022 09:42-0400 Body weight 86.18 kg Nancy West MD Work Phone: [facility] [employer] 10-22-2022 09:42-0400 Heart rate 97 /min Nancy West MD Work Phone: [facility] [employer] 10-22-2022 09:42-0400 Respiratory rate 18 /min Nancy West MD Work Phone: [facility] [employer] 10-22-2022 09:42-0400 SaO2% (BldA) [Mass fraction] 98 % Nancy West MD Work Phone: [facility] [employer] 12-22-2021 13:10-0400 Body height 162.56 cm Lissette Shin Other [employer] Other 12-22-2021 13:10-0400 Body temperature 101.2 [degF] Lissette Shin Other [employer] Other 12-22-2021 13:10-0400 Respiratory rate 18 /min Lissette Shin Other [employer] Other 12-22-2021 13:10-0400 SaO2% (BldA) [Mass fraction] 98 % Lissette Shin Other [employer] Other 06-04-2021 18:00-0500 Body height 162.56 cm Lissette Ginty Other [facility] Other 06-04-2021 18:00-0500 Body mass index (BMI) [Ratio] 30.89 kg/m2 Lissette Ginty Other [facility] Other 06-04-2021 18:00-0500 Body temperature 97.3 [degF] Lissette Ginty Other [facility] Other 06-04-2021 18:00-0500 Body weight 81.65 kg Lissette Ginty Other [facility] Other 06-04-2021 18:00-0500 Respiratory rate 18 /min Lissette Ginty Other [facility] Other 06-04-2021 18:00-0500 SaO2% (BldA) [Mass fraction] 98 % Lissette Ginty Other [facility] Other Encounters Encounter Date Encounter Type Care Provider Facility Start: 05-31-2024 End: 05-31-2024 Emergency department patient visit Rosalie Foster MD Work Phone: [facility] Comment on above: Acute upper respirat ory infection (Primary Dx) Start: 05-31-2024 End: 05-31-2024 Emergency department patient visit NO PCP NO PCP [facility] Start: 05-23-2024 End: 05-23-2024 Bamboo flowsheet Jefry New Lorelei-Nossek PRODUCT DEVELOPMENT ASSISTANT-CHILD LIFE ASSISTANT Work Phone: [facility] Start: 05-23-2024 End: 05-23-2024 Bamboo flowsheet Jefry New Lorelei-Nossek PRODUCT DEVELOPMENT ASSISTANT-CHILD LIFE ASSISTANT Work Phone: [facility] Start: 05-23-2024 End: 05-23-2024 ambulatory JEFRY Virgen LORELEI-NOSSEK Not Available Start: 05-23-2024 End: 05-23-2024 Office outpatient visit 25 minutes Jefry Virgen Lorelei-Nossek PRODUCT DEVELOPMENT ASSISTANT-CHILD LIFE ASSISTANT Work Phone: [facility] Comment on above: Hx of high risk medi cation treatment; Bipolar 1 disorder ([facility]) Start: 05-02-2024 End: 05-02-2024 Bamboo flowsheet Jefry Virgen Lorelei-Nossek PRODUCT DEVELOPMENT ASSISTANT-CHILD LIFE ASSISTANT Work Phone: [facility] Start: 05-02-2024 End: 05-02-2024 Bamboo flowsheet Jefry Virgen Lorelei-Nossek PRODUCT DEVELOPMENT ASSISTANT-CHILD LIFE ASSISTANT Work Phone: [facility] Start: 05-02-2024 End: 05-02-2024 Office outpatient new 60 minutes Jefry Virgen Lorelei-Nossek PRODUCT DEVELOPMENT ASSISTANT-CHILD LIFE ASSISTANT Work Phone: [facility] Comment on above: KELI (generalized anx iety disorder) ([facility]) Start: 05-02-2024 End: 05-02-2024 ambulatory JEFRY Virgen LORELEI-NOSSEK Not Available Start: 04-28-2024 End: 04-28-2024 Office outpatient visit 10 minutes Rosario Escamilla HALL CLERK Work Phone: [facility] Comment on above: Acute non-recurrent pansinusitis (Primary Dx); Tobacco dependence Start: 04-28-2024 End: 04-28-2024 ambulatory ROSARIO AICHHOLZ Not Available Start: 04-27-2024 End: 04-27-2024 Refill Rosario Francine HALL CLERK Work Phone: [facility] Comment on above: KELI (generalized anx iety disorder) (CMS/HCC); Fibromyalgia Start: 04-22-2024 End: 04-22-2024 Emergency department patient visit [facility] ED Comment on above: Lower respiratory in fection (Primary Dx); Acute non-recurrent pansinusitis Start: 04-13-2024 End: 04-13-2024 Bamboo flowsheet Rosario Escamilla HALL CLERK Work Phone: [facility] Start: 04-13-2024 End: 04-13-2024 Bamboo flowsheet Rosario Escamilla HALL CLERK Work Phone: [facility] Start: 04-13-2024 End: 04-13-2024 Office outpatient visit 25 minutes Rosario Escamilla HALL CLERK Work Phone: [facility] Comment on [...] 03-02-2024 End: 03-02-2024 Bamboo flowsheet Rosario Aichholz HALL CLERK Work Phone: [facility] Start: 03-02-2024 End: 03-02-2024 Bamboo flowsheet Rosario Aichholz HALL CLERK Work Phone: [facility] Start: 03-02-2024 End: 03-02-2024 Refill Rosario Aichholz HALL CLERK Work Phone: [facility] Comment on above: Fibromyalgia (Primar y Dx) Start: 03-02-2024 End: 03-02-2024 Office outpatient visit 15 minutes Rosario Aichholz HALL CLERK Work Phone: [facility] Comment on above: Fibromyalgia (Primar y Dx); KELI (generalized anxiety disorder) ([facility]); Class 2 obesity due to excess calories without serious comorbidity in adult, unspecified BMI Start: 02-18-2024 End: 02-18-2024 Bamboo flowsheet Rosario Aichholz HALL CLERK Work Phone: [facility] Start: 02-18-2024 End: 02-18-2024 Bamboo flowsheet Rosario Aichholz HALL CLERK Work Phone: [facility] Start: 02-18-2024 End: 02-18-2024 ambulatory ROSARIO AICHHOLZ Not Available Start: 02-18-2024 End: 02-18-2024 Office outpatient visit 15 minutes Rosario Aichholz HALL CLERK Work Phone: [facility] Comment on above: Subacute maxillary s inusitis (Primary Dx); Class 2 obesity due to excess calories without serious comorbidity in adult, unspecified BMI; COVID; Non-recurrent acute suppurative otitis media of right ear without spontaneous rupture of tympanic membrane Start: 02-11-2024 End: 02-11-2024 Refill Rosario Aichholz HALL CLERK [facility] Comment on above: Dizziness and giddin ess (Primary Dx) Start: 02-08-2024 End: 02-08-2024 Emergency department patient visit [facility] Start: 02-07-2024 End: 02-07-2024 Emergency department patient visit [facility] ED Start: 02-05-2024 End: 02-05-2024 Refill Rosario Aichholz HALL CLERK Work Phone: [facility] Comment on above: Abnormal weight gain ; Class 2 obesity due to excess calories without serious comorbidity in adult, unspecified BMI Start: 02-04-2024 End: 02-04-2024 Emergency department patient visit [facility] Start: 01-07-2024 End: 01-07-2024 ambulatory ROSARIO AICHHOLZ Not Available Start: 12-09-2023 End: 12-09-2023 ambulatory ROSARIO AICHHOLZ Not Available Start: 10-29-2023 End: 10-29-2023 ambulatory ROSARIO AICHHOLZ Not Available Start: 10-26-2023 End: 10-26-2023 ambulatory MON[place] RIGOBERTO Not Available Start: 10-20-2023 End: 10-20-2023 ambulatory MILAGROS LEYVA Not Available Start: 09-28-2023 End: 09-28-2023 ambulatory [place] RIGOBERTO Not Available Start: 09-23-2023 End: 09-23-2023 ambulatory Rosario J Aichholz Facility:[facility] Start: 09-23-2023 End: 09-23-2023 ambulatory Rosario Aichholz Work Phone: [facility] Work Phone: Start: 09-23-2023 End: 09-23-2023 Departed Referred Rosario Aichholz Work Phone: [facility] Start: 09-21-2023 End: 09-21-2023 ambulatory ROSARIO ESCAMILLA Not Available Start: 09-10-2023 End: 09-10-2023 Emergency department patient visit Tiesha Spencer DO Work Phone: [facility] ED Comment on above: Right flank pain (Pr imary Dx) Start: 08-19-2023 End: 08-19-2023 ambulatory MON[place] RIGOBERTO Not Available Start: 08-03-2023 End: 08-03-2023 ambulatory VONDA FAUZIA Not Available Start: 07-30-2023 End: 07-30-2023 ambulatory VONDA CAGE Not Available Start: 07-08-2023 End: 07-08-2023 Patient encounter procedure Montana Rigoberto DO Work Phone: [facility] Work Phone: Start: 07-08-2023 End: 07-08-2023 Periodic preventive med est patient 18-39 yrs Montana Rigoberto DO Work Phone: [facility] Comment on above: Well woman exam with routine gynecological exam; Preop examination; Menorrhagia with irregular cycle; Pelvic pain in female Start: 07-08-2023 End: 07-08-2023 Preprocedural examination done Montana Rigoberto DO Work Phone: [facility] Start: 07-08-2023 End: 07-08-2023 ambulatory MONTANA RIGOBERTO Not Available Start: 06-23-2023 End: 06-23-2023 ambulatory [place] RIGOBERTO Not Available Start: 10-23-2022 End: 10-23-2022 Emergency department patient visit Tiesha Spencer DO Work Phone: [facility] ED Comment on above: Viral syndrome (Prim waqas Dx); Migraine without aura and with status migrainosus, not intractable; Sinus congestion Start: 10-22-2022 End: 10-22-2022 Emergency department patient visit Nancy West MD Work Phone: [facility] ED Comment on above: Nonintractable heada audie, unspecified chronicity pattern, unspecified headache type (Primary Dx); Acute recurrent sinusitis, unspecified location Start: 07-19-2022 End: 07-19-2022 ambulatory AIR CONTROL ELECTRONICS OPERATOR ROSARIO AICHHOLZ Facility:[facility] Start: 05-20-2022 End: 05-20-2022 ambulatory AIR CONTROL ELECTRONICS OPERATOR ROSARIO AICHHOLZ Facility:[facility] Start: 05-01-2022 End: 05-01-2022 ambulatory AIR CONTROL ELECTRONICS OPERATOR ROSARIO AICHHOLZ Facility:[facility] Start: 04-23-2022 End: 04-24-2022 ambulatory AIR CONTROL ELECTRONICS OPERATOR ROSARIO AICHHOLZ Facility:[facility] Start: 02-08-2022 End: 02-08-2022 ambulatory AIR CONTROL ELECTRONICS OPERATOR ROSARIO AICHHOLZ Facility:[facility] Start: 12-31-2021 End: 12-31-2021 ambulatory AIR CONTROL ELECTRONICS OPERATOR ROSARIO AICHHOLZ Facility:[facility] Start: 12-30-2021 End: 12-31-2021 ambulatory AIR CONTROL ELECTRONICS OPERATOR ROSARIO AICHHOLZ Facility:[facility] Start: 12-24-2021 End: 12-24-2021 ambulatory AIR CONTROL ELECTRONICS OPERATOR ROSARIO AICHHOLZ Facility:[facility] Start: 12-23-2021 End: 12-23-2021 ambulatory AIR CONTROL ELECTRONICS OPERATOR ROSARIO AICHHOLZ Facility:[facility] Start: 12-22-2021 End: 12-22-2021 ambulatory Lissette Kip Other [facility] Other Start: 12-22-2021 Office outpatient vi sit 25 minutes Lissette Kip [facility] [place] Start: 06-04-2021 End: 06-04-2021 ambulatory Lissette Jesus Other [facility] Other Start: 06-04-2021 Office outpatient vi sit 15 minutes Lissette Gintrayo [facility] [place] Procedures Date Procedure Procedure Detail Performing Clinician Start: 05-31-2024 COVID-19, RAPID Rosalie Hiro Foster MD Work Phone: Start: 05-31-2024 Iaadiadoo influenza Juan J is Hiro Foster MD Work Phone: Start: 04-22-2024 Radiologic exam ches t 2 views M Dale Colón PRODUCT DEVELOPMENT ASSISTANT - AIR CONTROL ELECTRONICS OPERATOR Work Phone: Start: 04-12-2024 URINARY TRACT INFECT [...] in Cervix by Cyto stain Rosario Escamilla HALL CLERK Work Phone: Start: 10-23-2022 Radiologic exam ches [...] Screening for malign ant neoplasm of cervix [facility] Start: 11-21-2024 End: 05-23-2025 Lipid 1996 panel - Serum or Plasma Lipid panel Lab Routine Hx of high risk medication treatment Expected: 11/21/2024 (Approximate), Expires: 05/23/2025 [facility] Comment on above: Expected: 11/21/2024 (Approximate), Expires: 05/23/2025 Start: 06-15-2024 End: 06-15-2024 Patient encounter procedure 06/15/2024 1:30 PM EST Office Visit [facility] [address] [facility] [address] [place] [address] Jefry Pedraza, PRODUCT DEVELOPMENT ASSISTANT-CHILD LIFE ASSISTANT [address] [facility] [address] [place] [address] [facility] Start: 05-23-2024 End: 05-23-2025 CBC W Auto Differential panel - Blood CBC and differential Lab Routine Hx of high risk medication treatment Expected: 05/23/2024 (Approximate), Expires: 05/23/2025 [facility] Comment on above: Expected: 05/23/2024 (Approximate), Expires: 05/23/2025 Start: 05-23-2024 End: 05-23-2025 Comprehensive metabolic 2000 panel - Serum or Plasma Comprehensive metabolic panel Lab Routine Hx of high risk medication treatment Expected: 05/23/2024 (Approximate), Expires: 05/23/20[address] [facility] Comment on above: Expected: 05/23/2024 (Approximate), Expires: 05/23/2025 Start: 05-23-2024 End: 05-23-2025 Thyroid panel with tsh Thyroid panel with tsh Lab Routine Hx of high risk medication treatment Expected: 05/23/2024 (Approximate), Expires: 05/23/[address] [facility] Work Phone: Comment on above: Expected: 05/23/2024 (Approximate), Expires: 05/23/2025 Start: 05-23-2024 End: 05-23-2024 Patient encounter procedure 05/23/2024 9:30 AM EST Office Visit [facility] [address] [facility] [address] [place] [address] Jefry Pedraza, [facility]-CHILD LIFE ASSISTANT [address] [facility] [address] [place] [address] [facility] Start: 05-12-2024 End: 05-12-2024 Patient encounter procedure [facility] Start: 05-02-2024 End: 05-02-2024 Patient encounter procedure 05/02/2024 12:30 PM EST Office Visit [facility] [address] [facility] [address] [place] [address] Kayla Narvaez NP [address] [facility] [address] [place] [address] [facility] Start: 05-02-2024 End: 05-02-2024 Patient encounter procedure 05/02/2024 9:30 AM EST Office Visit [facility] [address] [facility] [address] [place] [address] Jefry Pedraza, [facility] [address] [facility] [address] [place] [address] KELI (generalized anxiety disorder) (CMS/HCC) [facility] Comment on above: KELI (generalized anx iety disorder) (CMS/HCC) Start: 04-19-2024 End: 04-19-2024 Professional / ancillary services management 04/19/2024 11:00 AM EST Ancillary Procedure [facility] [address] [place] [phone] [facility] Start: 04-13-2024 End: 04-13-2024 Patient encounter procedure [facility] Comment on above: Class 2 obesity due to excess calories without serious comorbidity with body mass index (BMI) of 35.0 to 35.9 in adult (Primary Dx); Tobacco dependence Start: 04-12-2024 End: 04-12-2025 US for US PELVIS-TRANSVAG IF INDICATED Imaging Routine Pelvic pain in female Expected: 04/12/2024 (Approximate), Expires: 04/12/[address] [facility] Comment on above: Expected: 04/12/2024 (Approximate), Expires: 04/12/2025 Start: 03-30-2024 End: 03-30-2024 Patient encounter procedure 03/30/2024 10:00 AM EST Office Visit [facility] [address] [place] [address] Rosario Escamilla, SAROJ [address] [place] [phone] [facility] Start: 03-08-2024 End: 03-08-2024 Patient encounter procedure 03/08/2024 9:00 AM EDT Office Visit [facility] [address] [place] [address] Rosario Escamilla, SAROJ [address] [place] [phone] [facility] Start: 03-02-2024 End: 03-02-2024 Patient encounter procedure 03/02/2024 9:20 AM EDT Office Visit [facility] [address] [place] [address] Rosario Escamilla NP [address] [place] [phone] [facility] Start: 02-18-2024 End: 02-18-2024 Patient encounter procedure 02/18/2024 1:20 PM EDT Office Visit [facility] [address] [place] [address] Rosario Escamilla NP [address] [place] [address] [facility] Start: 01-24-2024 COVID-19 Vaccine ( season) COVID-19 Vaccine ( season) [facility] Start: 12-24-2023 Influenza vaccination B [facility] Start: 11-23-2023 End: 11-23-2023 Patient encounter procedure 11/23/2023 3:20 PM EDT Office Visit [facility] [address] [place] [phone] Rosario Escamilla, SAROJ [address] [place] [phone] [facility] Start: 11-22-2023 Influenza vaccination Influenza Vacc ine (#1) [facility] Comment on above: Postponed from 01/23 (Patient Refused) Start: 07-24-2023 Screening for malign ant neoplasm of cervix Cervical Cancer Screening [facility] Comment on above: Postponed from 11/02 (Other Patient Reasons) Start: 12-23-2022 Influenza vaccination Flu vacc ine (Season Ended) [facility] Start: 11-02-2021 Screening for malign ant neoplasm of cervix [facility] Start: 11-02-2012 Screening for malign ant neoplasm of cervix Pap smear [facility] Start: 11-02-2010 DTaP/Tdap/Td vaccine (1 - Tdap) DTaP/Tdap/Td vaccine (1 - Tdap) [facility] Start: 11-02-2009 Hepatitis C screening Hepatitis C sc reen [facility] Start: 11-02-2006 HIV screening HIV screen [facility] Start: 11-02-2004 Varicella vaccine (1 of 2 - 13+ 2-dose series) Varicella vaccine (1 of 2 - 13+ 2-dose series) [facility] Start: 03-04-2004 Hepatitis B vaccine (2 of 3 - 3-dose series) Hepatitis B vaccine (2 of 3 - 3-dose series) [facility] Start: 2003 Depression Screen Depression Screen [facility] Start: 11-02-2002 DTaP/Tdap/Td vaccine (5 - Tdap) DTaP/Tdap/Td vaccine (5 - Tdap) [facility] Start: 11-02-1997 Pneumococcal 0-64 ye ars Vaccine (1 - PCV) Pneumococcal 0-64 years Vaccine (1 - PCV) [facility] Start: 11-02-1992 Varicella vaccine (1 of 2 - 2-dose childhood series) Varicella vaccine (1 of 2 - 2-dose childhood series) [facility] Start: 05-04-1992 COVID-19 Vaccine (#1) COVID-19 Vacci ne (#1) [facility] Start: 1991 Hepatitis B vaccine (1 of 3 - 3-dose series) Hepatitis B vaccine (1 of 3 - 3-dose series) [facility] Bacteria identified in Urine by Culture Urine culture Microbiology Routine Pelvic pain in female Ordered: 04/12/2024 [facility] [employer] Comment on above: Ordered: 04/12/2024 CBC panel - Blood by Automated count CBC Lab Routine Pelvic pain in female Ordered: 04/12/2024 [facility] [employer] Work Phone: Comment on above: Ordered: 04/12/2024 Comprehensive metabo lic 2000 panel - Serum or Plasma Comprehensive metabolic panel Lab Routine Pelvic pain in female Ordered: 04/12/2024 [facility] [employer] Comment on above: Ordered: 04/12/2024 Cytology Cervical or vaginal smear or scraping study Pap Smear Pathology and Cytology Routine Well woman exam with routine gynecological exam Ordered: 07/08/2023 [facility] [employer] Work Phone: Comment on above: Ordered: 07/08/2023 Human papilloma viru s DNA [Presence] in Unspecified specimen by Probe with amplification HPV DNA probe, amplified Microbiology Routine Well woman exam with routine gynecological exam Ordered: 07/08/2023 [facility] [employer] Comment on above: Ordered: 07/08/2023 End: 10-23-2022 Respiratory Panel, Molecular, with COVID-19 (Restricted: peds pts or suitable admitted adults) [facility] Work Phone: Comment on above: One Time for 1 Occur rences starting 10/23/2022 until 10/23/2022 End: 09-10-2023 SPECIMEN REJECTION [facility] Comment on above: Once for 1 Occurrenc es starting 09/10/2023 until 09/10/2023 Immunizations Immunization Date Immunization Notes Care Provider Bridgett mesa 02-05-2004 hepatitis B vaccine, pediatric or pediatric/adolescent dosage Rosario Aichholz HALL CLERK Work Phone: [facility] 09-19-1996 diphtheria, tetanus toxoids and acellular pertussis vaccine, unspecified formulation Rosario Aichholz HALL CLERK Work Phone: [facility] 09-19-1996 measles, mumps and rubella virus vaccine Rosario Aichholz HALL CLERK Work Phone: [facility] 09-19-1996 trivalent poliovirus vaccine, live, oral Rosario Aichholz HALL CLERK Work Phone: [facility] 02-12-1994 diphtheria, tetanus toxoids and pertussis vaccine Rosario Aichholz HALL CLERK Work Phone: [facility] 02-12-1994 trivalent poliovirus vaccine, live, oral Rosario Aichholz HALL CLERK Work Phone: [facility] 09-30-1993 diphtheria, tetanus toxoids and pertussis vaccine Rosario Aichholz HALL CLERK Work Phone: [facility] 09-30-1993 haemophilus influenz ae type b vaccine, conjugate unspecified formulation Rosario Aichholz HALL CLERK Work Phone: [facility] 09-30-1993 measles, mumps and rubella virus vaccine Rosario Aichholz HALL CLERK Work Phone: [facility] 09-30-1993 trivalent poliovirus vaccine, live, oral Rosario Aichholz HALL CLERK Work Phone: [facility] 04-16-1992 diphtheria, tetanus toxoids and pertussis vaccine Rosario Aichholz HALL CLERK Work Phone: [facility] 04-16-1992 haemophilus influenz ae type b vaccine, conjugate unspecified formulation Rosario Escamilla HALL CLERK Work Phone: [facility] 04-16-1992 trivalent poliovirus vaccine, live, oral Rosario Escamilla HALL CLERK Work Phone: [facility] Healthcare Payers Date Payer Category Payer Self-pay 2022 Unknown [facility] MEDICAID [id number] 2022-Present [phone] [address] [place] [address] [id number] 2022 Medicaid [employer] MEDIC AID [employer] [place] [id number] 2022-Present [address] [place] [address] [id number] 2022 Private Health Insurance [employer] [id number] 1991 Unknown [id number] 2.16840.1.563568.3.579.2 .593 1991 Unknown [id number] 2.16840.1.337101.3.579.2 .593 1991 Unknown [id number] 2.16.840.1.209550.3.579.2 .593 1991 Unknown [id number] 2.16.840.1.928124.3.579.2 .593 1991 Unknown [id number] 2.16.840.1.294018.3.579.2 .593 1991 Unknown [id number] 2.16.840.1.118357.3.579.2 .593 1991 Unknown [id number] 2.16.840.1.130004.3.579.2 .593 1991 Unknown [id number] 2.16.840.1.403540.3.579.2 .59 1991 Unknown [id number] 2.16.840.1.179085.3.579.2 .59 1991 Unknown [id number] 2.16.840.1.550578.3.579.2 .1258 1991 Unknown [id number] 2.16.840.1.004161.3.579.2 .1258 1991 Unknown [id number] 2.16.840.1.730698.3.579.2 .1258 1991 Unknown [id number] 2.16.840.1.829093.3.579.2 .1258 1991 Unknown [id number] 2.16.840.1.291505.3.579.2 .9 1991 Unknown [id number] 2.16.840.1.273732.3.579.2 .1258 1991 Unknown [id number] 2.16.840.1.710343.3.579.2 .1258 1991 Unknown [id number] 2.16.840.1.070806.3.579.2 .1258 1991 Unknown [id number] 2.16.840.1.558758.3.579.2 .1258 1991 Unknown [id number] 2.16.840.1.277232.3.579.2 .1258 1991 Unknown [id number] 2.16.840.1.722019.3.579.2 .1259 1991 Unknown [id number] 2.16.840.1.681978.3.579.2 .9 1991 Unknown [id number] 2.16.840.1.033334.3.579.2 .9 1991 Unknown [id number] 2.16.840.1.739233.3.579.2 .9 1991 Unknown [id number] 2.16.840.1.276751.3.579.2 .9 1991 Unknown [id number] 2.16.840.1.923323.3.579.2 .1258 1991 Unknown [id number] 2.16.840.1.696271.3.579.2 .9 1991 Unknown [id number] 2.16.840.1.290264.3.579.2 .1258 1991 Unknown [id number] 2.16.840.1.099427.3.579.2 .9 1991 Unknown [id number] 2.16.840.1.726118.3.579.2 .6 1991 Unknown [id number] 2.16.840.1.447171.3.579.2 .173 1991 Unknown [id number] 2.16.840.1.619973.3.579.2 .1991 Unknown [id number] 2.16.840.1.776321.3.579.2 .173 1991 Unknown [id number] 2.16.840.1.403856.3.579.2 .173 1991 Unknown [id number] 2.16.840.1.752098.3.579.2 .173 1991 Unknown [id number] 2.16.840.1.525466.3.579.2 .173 1959 Medicaid [id number] 1959 Unknown [id number] 2.16.840.1.530268.19 Unknown [id number] 2.16.840.1.803263.3.579.2 .531 Unknown [id number] Unknown 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 [id number] Social History Date Type Detail Facility Unknown if ever smoked [facility] Other Start: 05-21-2023 End: 09-10-2023 Sex Assigned At [employer] Other Start: 10-22-2022 End: 05-02-2024 Tobacco smoking status FLIS Smokes tobacco daily [employer] Phone: History of tobacco use Cigarette Smoker [facility] [employer] Phone: Start: 10-22-2022 End: 05-26-2023 Tobacco use and exposure Smokeless tobacco non-user [employer] Phone: Start: 10-22-2022 End: 10-23-2022 History SDOH Alcohol Frequency 1 [employer] Phone: Start: 1990 Sex Assigned At Not on file B [facility] [employer] Phone: Start: 10-23-2022 History SDOH Alcohol Std Drinks 0 [employer] Phone: Start: 05-19-2023 End: 09-10-2023 Cigarettes smoked current (pack per day) - Reported 0.5 [facility] Start: 05-26-2023 Tobacco smoking stat [facility] Ex-smoker [employer] History of tobacco use Current smoker [employer] Start: 09-10-2023 End: 05-31-2024 Alcohol intake Lifetime non-drinker (finding) [employer] How often to you hav e a drink containing alcohol? Never [employer] How many standard drinks containing alcohol do you have on a typical day? Patient does not drink [employer] [facility] Start: 1990 Sex Assigned At Female F [facility] Start: 03-02-2024 End: 05-23-2024 Alcoholic beverage intake Ex-drinker (finding) [facility] Start: 09-21-2023 Alcohol Comment caffine: 1 cup of coffee daily and soda/energy drinks twice a week [facility] Start: 05-02-2024 Education 15 [facility] Healt cecere Clinical Notes 06-04-2021 to 05-31-2024 Discharge InstructionsAttachLeonardo Pedraza [facility] - 05/23/2024 9:30 AM Avery Yadav LPN - 05/23/2024 9:30 AM Pallavi Pedraza PRODUCT DEVELOPMENT ASSIST[facility] - 05/02/2024 9:30 AM ESTAttachments Note [...] sent through Care Everywhere.URI (Upper Respiratory Infection) (Uzbek)documented in this encounter [facility] 05-23-2024 History of Present illness [...] stopped it then documented in this encounter [facility] 05-02-2024 History of Present illness Narrative NEW [...] disorder when patient was incarcerated. Treated by [facility]. She remembers seeing a counselor but does not remember if they were prescribing medications. Med trials Include prozac, celexa-thinks made her worse was In closet so depressed.Duloxetine, risperdal. Current medications are Cymbalta and gabapentin. Patient reports a history of psychiatric hospitalizations. 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 Went to Correction February 2014 -breaking probation. Went thru detox [...] Is her significant other. 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 Stressors [...] documentation 75 min documented in this encounter [facility] 04-28-2024 History of Present illness Narrative Associated Problem(s): Acute non-recurrent pansinusitis Was in [place] ER last week, No better with zithromax-did [...] of the risks of continued smoking: stroke, UT, all forms of cancer, lung disease, and [...] of the risks of continued smoking: stroke, UT, all forms of cancer, lung disease, and . Options for quitting smoking include: cold turkey, hypnosis, acupuncture, nicotine replacement meds (gum, lozenges, and patches), Buproprion, and Varenicline. At this time pt is encouraged to evaluate their goals for wanting to quit smoking, and reach out to provider when ready to start this process documented in this encounter [facility] 04-28-2024 Instructions Rosario Escamilla NP - 04/28/2024 11:30 AM EST Finish atb, steroid medrol dose pack, also cough syrup While taking the steroids and cough syrup, hold the adipex and once done with steroids and cough med then resume adipex May try Al[facility] nasal irrigation as well: use distilled water documented in this encounter [facility] 04-22-2024 Hospital Discharge instructions Virgen Colón APRN [...] cannot be sent through Care Everywhere.Sinusitis: Acute (Uzbek)Cough: Chronic (Uzbek)documented in this encounter [facility] 04-13-2024 History of Present illness Narrative Associated Problem(s): Abnormal weight gain Pt meets qualifications of [facility] [id number] for weight loss. BMI>30 or [...] drinks. Associated Problem(s): KELI (generalized anxiety disorder) ([facility]) We discussed that she may have depression/anxiety, [...] hx: hx of addiction, then went to skilled nursing for 5 years, while she was in skilled nursing she was diagnosed as manic bipolar. She [...] of the risks of continued smoking: stroke, UT, all forms of cancer, lung disease, and [...] of the risks of continued smoking: stroke, UT, all forms of cancer, lung disease, and . Options for quitting smoking include: cold turkey, hypnosis, acupuncture, nicotine replacement meds (gum, lozenges, and patches), Buproprion, and Varenicline. At this time pt is encouraged to evaluate their goals for wanting to quit smoking, and reach out to provider when ready to start this process documented in this encounter [facility] 04-13-2024 Instructions Rosario Escamilla NP - 04/13/2024 11:00 AM EST Refer to psych for evaluation for proper diagnosis and medication management documented in this encounter [facility] 04-12-2024 History of Present illness Narrative Reason [...] Noted Lupus 05/02/2019 KELI (generalized anxiety disorder) ([facility]) 05/20/2023 Ear itching 05/21/2023 Fibromyalgia 05/21/2023 Class 2 obesity due to excess calories without serious comorbidity in adult 05/21/2023 Thrombocytopenia ([facility]) 09/21/2023 RLS (restless legs syndrome) 09/21/2023 Chronic [...] drug use Lumbar back pain Mood disorder ([facility]) Neurocardiogenic syncope Obesity (BMI 30-39.9) Rash of [...] of: [facility] documented in this encounter [facility] 03-02-2024 History of Present illness Narrative Associated Problem(s): KELI (generalized anxiety disorder) ([facility]) No med dose changes at this time [...] Addressed This Visit KELI (generalized anxiety disorder) ([facility]) No med dose changes at this time [...] comorbidity in adult documented in this encounter [facility] 02-18-2024 History of Present illness Narrative Associated [...] 875-125 MG tablet documented in this encounter [facility] 09-10-2023 Hospital Discharge instructions Tiesha Spencer DO - 09/10/2023 7:13 PM EDT Tylenol as needed. Follow-up with your doctor in regards to your low platelet counts. Return if you have any worsening symptoms. Heating pad or ice pack may also be helpful. Avoid ibuprofen or Aleve. The following attachments cannot be sent through Care Everywhere.Flank Pain (Uzbek)documented in this encounter [facility] 07-08-2023 History of Present illness Narrative Reason for Appointment: Patient ID: Lina Alcantar is a 32 y.o. female who presents for Well Women Visit and Pre-op Visit Patient presents today for a Pre Op appointment. Patient is scheduled to undergo Diagnostic Laparoscopy, possible LINDA, possible FOE, possible BSO on 07/24/[address] Franklin at [facility]. Current Medications: has a current medication list which includes the following prescription(s): acetaminophen, acetaminophen, duloxetine, gabapentin, and lorazepam. Medical History: Active Ambulatory Problems Diagnosis Date Noted Lupus ([facility]) 05/02/2019 KELI (generalized anxiety disorder) ([facility]) 05/20/2023 Ear itching 05/21/2023 Fibromyalgia 05/21/2023 Class 2 obesity due to excess calories without serious comorbidity in adult 05/21/2023 Resolved Ambulatory Problems Diagnosis Date Noted No Resolved Ambulatory Problems Past Medical History: Diagnosis Date Fatigue History of drug use Lumbar back pain Mood disorder ([facility]) Neurocardiogenic syncope Obesity (BMI 30-39.9) Rash of [...] nursing note reviewed. Exam conducted with a casino shift manager present. Vitals: Estimated body mass index is [...] reviewed, and patient is to proceed to [facility] OR. Follow Up: Patient is to follow up between 1-2 weeks post operative to assess proper healing and recovery from procedure. Documented by: Aurora Valle LPN on behalf of [place] Franklin DO documented in this encounter [facility] 10-23-2022 Hospital Discharge instructions Tiesha Spencer DO [...] take care of you at [facility]. In the next few days you may receive a survey by mail or e-mail asking about the care you received during this visit. Please complete this if you are able, as this feedback helps us provide the best care possible. The following attachments cannot be sent through Care Everywhere.Migraine Headache (Uzbek)documented in this encounter [facility] [employer] Phone: 10-22-2022 Hospital Discharge instructions Nancy West MD - 10/22/2022 11:37 AM EDT Continue current medications as prescribed. Take Augmentin as directed until complete. Make sure that you stay well-hydrated. Tylenol and or Motrin as needed for pain at home. Use [place] in place of Tylenol for pain not [...] be sent through Care Everywhere.Acute Sinusitis: Video (Uzbek)Headache (Uzbek)[facility] 12-22-2021 Evaluation note Encounter Date Diagnosis Assessment Notes Nov, Fever (ICD-10 - R50.9) Nov, Viral URI (ICD-10 - J06.9) Advised patient that COVID/Influenza A/B PCR test was negative today. Woodruff test negative. Advised patient that will treat [...] Nov, Fatigue, unspecified type (ICD-10 - R53.83) [facility] Other 01-11-2022 Evaluation note* Encounter Date Diagnosis [...] Patient care instructions given in writting by [facility] Care At Home document [facility] Other Evaluation note* Diagnosis Nonintractable headache, unspecified chronicity pattern, unspecified headache type- Primary Acute recurrent sinusitis, unspecified location documented in this encounter [employer] Work Phone: evaluation note* Diagnosis Viral syndrome- Primary Unspecified viral infection, in conditions classified elsewhere and of unspecified site Migraine without aura and with status migrainosus, not intractable Migraine without aura, without mention of intractable migraine with status migrainosus Sinus congestion Other diseases of nasal cavity and sinuses documented in this encounter [employer] Phone: evaluation note* Diagnosis Well woman exam with routine gynecological exam Routine gynecological examination Preop examination Unspecified pre-operative examination Menorrhagia with irregular cycle Pelvic pain in female Unspecified symptom associated with female genital organs documented in this encounter [facility]* Diagnosis Right flank pain- Primary Abdominal pain, unspecified site documented in this encounter [employer] noteNo assessment information available [facility] Work Phone: Evaluation note* Diagnosis Fibromyalgia- Primary Unspecified myalgia and myositis KELI (generalized anxiety disorder) ([facility]) Generalized anxiety disorder Class 2 obesity due to excess calories without serious comorbidity in adult, unspecified BMI documented in this encounter [facility]* Diagnosis Fibromyalgia- Primary Unspecified myalgia and myositis documented in this encounter [facility]* Diagnosis KELI (generalized anxiety disorder) ([facility]/H[facility])- Primary Generalized anxiety disorder Ear itching [...] legs syndrome (RLS) KELI (generalized anxiety disorder) ([facility]/H[facility])- Primary Generalized anxiety disorder Class 2 [...] myalgia and myositis KELI (generalized anxiety disorder) ([facility]) Generalized anxiety disorder Class 2 obesity due to excess calories without serious comorbidity in adult, unspecified BMI Vaginal discharge Leukorrhea, not specified as infective Pelvic pain in female Unspecified symptom associated with female genital organs [facility] Diagnosis KELI (generalized anxiety disorder) ([facility])- Primary Generalized anxiety disorder Ear itching Fibromyalgia Unspecified myalgia and myositis Class 2 obesity due to excess calories without serious comorbidity in adult, unspecified BMI Thrombocytopenia ([facility])- Primary Unspecified thrombocytopenia Fibromyalgia Unspecified myalgia and myositis Class 2 obesity due to excess calories without serious comorbidity in adult, unspecified BMI KELI (generalized anxiety disorder) ([facility]) Generalized anxiety disorder UTI symptoms RLS (restless legs syndrome) Restless legs syndrome (RLS) KELI (generalized anxiety disorder) ([facility])- Primary Generalized anxiety disorder Class 2 obesity [...] myalgia and myositis KELI (generalized anxiety disorder) ([facility]) Generalized anxiety disorder Class 2 obesity due to excess calories without serious comorbidity in adult, unspecified BMI KELI (generalized anxiety disorder) (CMS/HCC)- Primary Generalized anxiety disorder Class 2 obesity due to excess calories without serious comorbidity with body mass index (BMI) of 35.0 to 35.9 in adult Tobacco dependence Tobacco use disorder Abnormal weight gain documented in this encounter [facility]* Diagnosis Lower respiratory infection- Primary Other diseases of respiratory system, not elsewhere classified Acute non-recurrent pansinusitis documented in this encounter [facility]* Diagnosis KELI (generalized anxiety disorder) ([facility])- Primary Generalized anxiety disorder Ear itching Fibromyalgia Unspecified myalgia and myositis Class 2 obesity due to excess calories without serious comorbidity in adult, unspecified BMI Thrombocytopenia ([facility])- Primary Unspecified thrombocytopenia Fibromyalgia Unspecified myalgia and myositis Class 2 obesity due to excess calories without serious comorbidity in adult, unspecified BMI KELI (generalized anxiety disorder) (CMS/HCC) Generalized anxiety disorder UTI symptoms RLS (restless legs syndrome) Restless legs syndrome (RLS) KELI (generalized anxiety disorder) ([facility])- Primary Generalized anxiety disorder Class 2 obesity [...] myalgia and myositis documented in this encounter [facility]* Diagnosis KELI (generalized anxiety disorder) (CMS/HCC)- Primary Generalized anxiety disorder Ear itching Fibromyalgia Unspecified myalgia and myositis Class 2 obesity due to excess calories without serious comorbidity in adult, unspecified BMI Thrombocytopenia ([facility])- Primary Unspecified thrombocytopenia Fibromyalgia Unspecified myalgia and myositis Class 2 obesity due to excess calories without serious comorbidity in adult, unspecified BMI KELI (generalized anxiety disorder) ([facility]) Generalized anxiety disorder UTI symptoms RLS (restless legs syndrome) Restless legs syndrome (RLS) KELI (generalized anxiety disorder) ([facility])- Primary Generalized anxiety disorder Class 2 obesity [...] myalgia and myositis KELI (generalized anxiety disorder) ([facility]) Generalized anxiety disorder Class 2 obesity due to excess calories without serious comorbidity in adult, unspecified BMI KELI (generalized anxiety disorder) ([facility])- Primary Generalized anxiety disorder Class 2 obesity [...] HealthcareEvaluation note* Diagnosis KELI (generalized anxiety disorder) ([facility])- Primary Generalized anxiety disorder Ear itching Fibromyalgia Unspecified myalgia and myositis Class 2 obesity due to excess calories without serious comorbidity in adult, unspecified BMI Thrombocytopenia ([facility])- Primary Unspecified thrombocytopenia Fibromyalgia Unspecified myalgia and myositis Class 2 obesity due to excess calories without serious comorbidity in adult, unspecified BMI KELI (generalized anxiety disorder) ([facility]) Generalized anxiety disorder UTI symptoms RLS (restless legs syndrome) Restless legs syndrome (RLS) KELI (generalized anxiety disorder) ([facility])- Primary Generalized anxiety disorder Class 2 obesity [...] myalgia and myositis KELI (generalized anxiety disorder) ([facility]) Generalized anxiety disorder Class 2 obesity due to excess calories without serious comorbidity in adult, unspecified BMI KELI (generalized anxiety disorder) ([facility])- Primary Generalized anxiety disorder Class 2 obesity due to excess calories without serious comorbidity with body mass index (BMI) of 35.0 to 35.9 in adult Tobacco dependence Tobacco use disorder Abnormal weight gain Acute non-recurrent pansinusitis- Primary Tobacco dependence Tobacco use disorder KELI (generalized anxiety disorder) ([facility]) Generalized anxiety disorder documented in this encounter [...] HealthcareEvaluation note* Diagnosis KELI (generalized anxiety disorder) ([facility])- Primary Generalized anxiety disorder Ear itching Fibromyalgia Unspecified myalgia and myositis Class 2 obesity due to excess calories without serious comorbidity in adult, unspecified BMI Thrombocytopenia ([facility])- Primary Unspecified thrombocytopenia Fibromyalgia Unspecified myalgia and myositis Class 2 obesity due to excess calories without serious comorbidity in adult, unspecified BMI KELI (generalized anxiety disorder) ([facility]) Generalized anxiety disorder UTI symptoms RLS (restless legs syndrome) Restless legs syndrome (RLS) KELI (generalized anxiety disorder) ([facility])- Primary Generalized anxiety disorder Class 2 obesity [...] myalgia and myositis KELI (generalized anxiety disorder) ([facility]) Generalized anxiety disorder Class 2 obesity due to excess calories without serious comorbidity in adult, unspecified BMI KELI (generalized anxiety disorder) ([facility])- Primary Generalized anxiety disorder Class 2 obesity [...] [facility] Narrative - Reported* Type Description Date Surgical History Gallbladder 2010 Surgical History t&a Surgical History tubal ligation [facility] Other History general Narrative - Reported* Type Description Date Surgical History Gallbladder 2009 Surgical History t&a Surgical History tubal ligation Hospitalization History see above [facility] Other Summary Purpose Family History No Family [...] section and content) DATE CREATED AUTHOR 02/23/2020 [facility] DATE CREATED AUTHOR AUTHOR'S ORGANIZ ATION 08/26/2022 [facility] DATE CREATED AUTHOR AUTHOR'S ORGANIZ ATION 09/26/2023 [facility] DATE CREATED AUTHOR AUTHOR'S ORGANIZ ATION 05/24/2024 [facility] EPIC DATE CREATED AUTHOR AUTHOR'S ORGANIZ ATION 06/06/2024 [facility] DATE CREATED AUTHOR AUTHOR'S ORGANIZ ATION 06/06/[address] [facility] REASON FOR VISIT (unrecogniz ed [...] 02/03. 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 States weakness and dry cough over last several days. Denies chest pain/shortness of breath Reason Comments Vaginal Discharge Reason Comments Cough Ongoing for over a w [place]. Nonproductive, but patient states that she feels that her chest is congested, but she is unable to cough anything up. Denies chest pain. Headache Nasal Congestion Reason Comments Cough Reason Comments Psychiatric Evaluation Specialty Diagnoses / Procedures Referred By Contyuan t Referred To Contact Behavioral Health Diagnoses KELI (generalized anxiety disorder) ([facility]) Procedures AR OFFICE/OUTPATIENT [facility] Rosario Escamilla NP [address] [place] [address] Phone: tel: fax: Kayla Narvaez NP [address] [place] [address] Phone: tel: fax: Referral ID Status Reason Start Date Expiration Date V isits Requested Visits Authorized [id number] Closed Specialty Services Required 04/13/2024 10/10/2024 1 [...] Care Teams (unrecognized sec tion and content) Securities And Real Estate Director Relationship Specialty Start Date End Date Baldemar Galvan MD [address] [facility] [place] [address] PCP - General Family Medicine 10/23/22 Securities And Real Estate Director Relationship Specialty Start Date End Date Luciano Cardona MD PCP - General Family Medicine 12/09/22 Rosario Escamilla NP [address] [place] [address] Referring Physician Nurse Practitioner 12/09/22 Team Status: Inactive Member Role Status Dates Rosario Escamilla Attending Provider Active Start: September 23, 2023 End: September 23, 2023 Securities And Real Estate Director Relationship Specialty Start Date End Date Luciano Cardona MD [address] [place] [address] PCP - General Family Medicine 09/21/23 Rosario Escamilla NP [address] [place] [address] Referring Physician Nurse Practitioner 12/09/22 Securities And Real Estate Director Relationship Specialty Start Date End Date Luciano Cardona MD [address] [place] [phone] PCP - General Family Medicine 09/21/23 Rosario Escamilla NP [address] [place] [address] Referring Physician Nurse Practitioner 12/09/22 Securities And Real Estate Director Relationship Specialty Start Date End Date Luciano Cardona MD [address] [place] [address] PCP - General Family Medicine 09/21/23 Rosario Escamilla NP [address] [place] [address] Referring Physician Nurse Practitioner 12/09/22 Securities And Real Estate Director Relationship Specialty Start Date End Date Luciano Cardona MD [address] [place] [address] PCP - General Family Medicine 09/21/23 Montana Franklin DO [facility] [place] [address] [facility] 02/23/24 Rosario Escamilla NP [address] [place] [address] Referring Physician Nurse Practitioner 12/09/22 Securities And Real Estate Director Relationship Specialty Start Date End Date Luciano Cardona MD [address] [place] [address] PCP - General Family Medicine 09/21/23 Montana Franklin DO [facility] [place], [place] [phone] PCP [facility] 02/23/24 Rosario Escamilla, SAROJ [address] [place] [address] Referring Physician Nurse Practitioner 12/09/22 Securities And Real Estate Director Relationship Specialty Start Date End Date Luciano Cardona MD [address] [place] [address] PCP - General [facility] 09/21/23 Montana Franklin DO [facility] [place] [address] [facility] 02/23/24 Rosario Escamilla NP [address] [place] [address] Referring Physician Nurse Practitioner 12/09/22 Securities And Real Estate Director Relationship Specialty Start Date End Date Luciano Cardona MD [address] [place] [address] PCP - General [facility] 09/21/23 Montana Franklin DO [facility] [place] [address] [facility] 02/23/24 Rosario Escamilla NP [address] [place] [address] Referring Physician Nurse Practitioner 12/09/22 Securities And Real Estate Director Relationship Specialty Start Date End Date Luciano Cardona MD [address] [place] [address] PCP - General Family Medicine 09/21/23 Montana Franklin DO [facility] [place] [address] PCP - [facility] 02/23/24 Rosario Escamilla, SAROJ [address] [place] [address] Referring Physician Nurse Practitioner 12/09/22 Securities And Real Estate Director Relationship Specialty Start Date End Date Luciano Cardona MD [address] [place] [address] PCP - [facility] 09/21/23 Montana Franklin DO [facility] [place] [address] PCP - [facility] 02/23/24 Rosario Escamilla, SAROJ [address] [place] [address] Referring Physician Nurse Practitioner 12/09/22 Securities And Real Estate Director Relationship Specialty Start Date End Date Luciano Cardona MD [address] [place] [address] PCP - [facility] 09/21/23 Montana Franklin DO [facility] [place] [address] PCP - [facility] 02/23/24 Rosario Escamilla, HALL CLERK [address] [place] [address] Referring Physician Nurse Practitioner 12/09/22 Securities And Real Estate Director Relationship Specialty Start Date End Date Luciano Cardona MD [address] [place] [address] PCP - General Family Medicine 09/21/23 Montana Franklin DO [facility] [place] [address] [facility] 02/23/24 Rosario Escamilla NP [address] [place] [address] Referring Physician Nurse Practitioner 12/09/22 Securities And Real Estate Director Relationship Specialty Start Date End Date Luciano Cardona MD [address] [place] [address] PCP - General [facility] 09/21/23 Rosario Escamilla NP [address] [place] [address] Referring Physician Nurse Practitioner 12/09/22 Securities And Real Estate Director Relationship Specialty Start Date End Date Luciano Cardona MD [address] [place] [address] PCP - [facility] 09/21/23 Montana Franklin DO [facility] [place], [place] [phone] [facility] 02/23/24 Rosario Escamilla NP [address] [place] [address] Referring Physician Nurse Practitioner 12/09/22 Securities And Real Estate Director Relationship Specialty Start Date End Date Luciano Cardona MD [address] [place] [address] PCP - General Family [facility] 09/21/23 Montana Franklin DO [address] [place] [address] Dr [place], [place] [phone] [facility] 02/23/24 Rosario Escamilla NP [address] [place] [address] Referring Physician Nurse Practitioner 12/09/22 Securities And Real Estate Director Relationship Specialty Start Date End Date Luciano Cardona MD [address] [place] [address] PCP - General Family Medicine 09/21/23 Rosario Escamilla NP [address] [place] [address] Referring Physician Nurse Practitioner 12/09/22 Securities And Real Estate Director Relationship Specialty Start Date End Date Luciano Cardona MD [address] [place] [address] PCP - General Family [facility] 09/21/23 Rosario Escamilla NP [address] [place] [address] Referring Physician Nurse Practitioner 12/09/22 Securities And Real Estate Director Relationship Specialty Start Date End Date Luciano Cardona MD [address] [place] [address] PCP - General [facility] 09/21/23 Montana Franklin DO [address] [place] [address] [place] [address] [facility] 02/23/24 Rosario Escamilla NP [address] [place] [address] Referring Physician Nurse Practitioner 12/09/22 Securities And Real Estate Director Relationship Specialty Start Date End Date Luciano Cardona MD [address] [place] [address] PCP - [facility] 09/21/23 Montana Franklin DO [address] [place] [address] [place] [address] [facility] 02/23/24 Rosario Escamilla NP [address] [place] [address] Referring Physician Nurse Practitioner 12/09/22 Goals (unrecognized [...] BE BASED ON THE PRIMARY CLINICAL RECORDS. [facility]. provides no warranty or guarantee of the accuracy or completeness of information in this document.
--- OUTSIDE RECORDS SUMMARY | 2024-06-07 07:42 | XMS_ITS | CCD ---
Author Organization [facility] Care Team Providers Care Instrument Worker Name Role Phone Lissette Lee Unavailable Lissette Shin Unavailable AICHHOLZ, 3D TECHNOLOGIST ROSARIO Admitting Unavailable AICHHOLZ, 3D TECHNOLOGIST ROSARIO Attending Unavailable AICHHOLZ, 3D TECHNOLOGIST ROSARIO Primary Care Unavailable AICHHOLZ, 3D TECHNOLOGIST ROSARIO Consulting Unavailable AICHHOLZ, 3D TECHNOLOGIST ROSARIO Admitting Unavailable AICHHOLZ, 3D TECHNOLOGIST ROSARIO Attending Unavailable AICHHOLZ, 3D TECHNOLOGIST ROSARIO Primary Care Unavailable AICHHOLZ, 3D TECHNOLOGIST ROSARIO Consulting Unavailable AICHHOLZ, 3D TECHNOLOGIST ROSARIO Admitting Unavailable AICHHOLZ, 3D TECHNOLOGIST ROSARIO Attending Unavailable AICHHOLZ, 3D TECHNOLOGIST ROSARIO Primary Care Unavailable AICHHOLZ, 3D TECHNOLOGIST ROSARIO Consulting Unavailable AICHHOLZ, 3D TECHNOLOGIST ROSARIO Primary Care Unavailable ROBERT ONTIVEROS Consulting Unavailable ROBERT ONTIVEROS Admitting Unavailable ROBERT ONTIVEROS Attending Unavailable AICHHOLZ, 3D TECHNOLOGIST ROSARIO Primary Care Unavailable MARICEL .GUSTAVOID Admitting Unavailable MARICEL .GUSTAVOID Attending Unavailable MARICEL ., CAROLYNN Consulting Unavailable AICHHOLZ, 3D TECHNOLOGIST ROSARIO Primary Care Unavailable MARICEL .GUSTAVOID Admitting Unavailable MARICEL .GUSTAVOID Attending Unavailable MARICEL ., CAROLYNN Consulting Unavailable AICHHOLZ, 3D TECHNOLOGIST ROSARIO Primary Care Unavailable DR MARCY GU Admitting Unavailable DR MARCY GU Attending Unavailable Vikas Roman Consulting Unavailable DR MARCY GU Consulting Unavailable AICHHOLZ, 3D TECHNOLOGIST ROSARIO Admitting Unavailable AICHHOLZ, 3D TECHNOLOGIST ROSARIO Attending Unavailable AICHHOLZ, 3D TECHNOLOGIST ROSARIO Primary Care Unavailable AICHHOLZ, 3D TECHNOLOGIST ROSARIO Consulting Unavailable AICHHOLZ, 3D TECHNOLOGIST ROSARIO Admitting Unavailable AICHHOLZ, 3D TECHNOLOGIST ROSARIO Attending Unavailable AICHHOLZ, 3D TECHNOLOGIST ROSARIO Primary Care Unavailable AICHHOLZ, 3D TECHNOLOGIST ROSARIO Consulting Unavailable Unavailable Primary Care Provider Unavailjessica Galvan MD, Baldemar Primary Care Provider [phone] Luciano Cardona MD Primary Care Provider Aicsally PLATE FITTER, Rosario Unavailable Unavailable Primary Care Provider UnavailRosario Black Attending Unavailable Rosario Escamilla Admitting Unavailable Rosario Escamilla Attending Provider [phone] [employer] PLATE FITTER, Rosario Unavailable Luciano Cardona MD Primary Care Provider Rigoberto DO, [place] Unavailable RIGOBERTO, [place] Attending Unavailable RIGOBERTO, [place] Attending Unavailable FAUZIA, VONDA Attending Unavailable FAUZIA, VONDA Attending Unavailable RIGOBERTO, [place] Attending Unavailable AICHHOLZ, ROSARIO Attending Unavailable RIGOBERTO, [place] Attending Unavailable MILAGROS LEYVA Attending Unavailable RIGOBERTO, [place] Attending Unavailable AICHHOLZ, ROSARIO Attending Unavailable AICHHOLZ, ROSARIO Attending Unavailable AICHHOLZ, ROSARIO Attending Unavailable AICHHOLZ, ROSRAIO Attending Unavailable AICHHOLZ, ROSARIO Attending Unavailable FAUZIA, [...] tablet 650 mg take 2 tablets by [facility] every six hours as needed for [...] ORCO) 5-325 MG per tablet 1 tablet [id number] 200 actuat albuterol 0.09 mg/actuat metered dose [...] oral solution (5 sources) alpha-Adrenergic Agonist, Uncompetitive W-oxfudu-I-aspartat e Receptor Antagonist, Sigma-1 Agonist Start: 04-28-2024 [...] mg/ml oral solution (1 source) Phenothiazine, Uncompetitive D-csnwsf-D-aspartate Receptor Antagonist, Sigma-1 Agonist Start: 04-22-2024 End: [...] for Pain 20 tablet 05/26/2023 Active levonorgestrel 0.244226 mg/hr intrauterine system (20 sources) Progestin, Progestin-containin [...] 25 mg take 1 capsule by mo [facility] every six hours as needed diphenhydrAMINE (BENADRYL) [...] MG tablet Indications: KELI (generalized anxiety disorder) (CMS/[facility]) Take 1 tablet (0.5 mg) by mouth [...] AMPARO+probe Ql (Resp) Not detected Not Detected [facility] Comment on above: Rapid NAAT: The specimen [...] Nucleic Acid Amplification Specimen Description .NASOPHARYNGEAL SWAB [facility] Flu A/B Ag Detectionon 05-31 Flu A Ag Detection Negative Normal NEG [facility] Comment on above: Result Comment: for Influenza A Antigen Performed By: #### F LUABA #### [address] [place] [address] Client Success Specialist: Taran De Los Santos MD Flu B Ag Detection Negative Normal NEG [facility] Comment on above: Result Comment: for Influenza B Antigen. Performed By: #### F LUABA #### [address] [place] [address] Client Success Specialist: Taran De Los Santos MD Rapid influenza A/B antigens on 05-31-2024 FLUAV Ag Ql (Unsp spec) Negative NEGATIVE [facility] Comment on above: for Influenza A Anti gen FLUBV Ag Ql (Unsp spec) Negative NEGATIVE [facility] Comment on above: for Influenza B Anti gen. [facility] [id number]-[id number] 05-31-2024 SARS-CoV-2 (COVID-19) RNA AMPARO+probe Ql (Unsp spec) Not detected Normal NOTDET [facility] Comment on above: Result Comment: Rapid [...] By: #### C OVRB #### [facility] [address] [place] [address] [place] [address] Client Success Specialist: Taran De Los Santos MD XR CHEST [...] Lenin Hewitt MD 04/22/24 Final result Normal [facility] XR Chest 2 Viewson No acute [...] osseous abnormality. IMPRESSION: No acute cardiopulmonary process. [facility] Radiology Study observation (narrative) [facility] XR Chest 2 ViewsOrdered By: Lenin Hewitt on 04-22-2024 [facility] Work Phone: No Panel Informationon 04-13 STAPHYLOCOCCUS EPIDERMIDIS, HAEMOLYTICUS, LUGDUNENSIS, SAPROPHYTICUS (URINA 0 [facility] STAPHYLOCOCCUS EPIDERMIDIS, HAEMOLYTICUS, LUGDUNENSIS, SAPROPHYTICUS (URINA Not detected [facility] URINARY TRACT INFECTION (HTR X)on 04-13-2024 ACINETOBACTER BAUMANII 0 [facility] ACINETOBACTER BAUMANII Not detected [facility] CÉSAR ALBICANS, PARAPSILOSIS, TROPICALIS 0 [facility] CÉSAR ALBICANS, PARAPSILOSIS, TROPICALIS Not detected [facility] CÉSAR GLABRATA 0 [facility] ltare CÉSAR GLABRATA Not detected [facility] CÉSAR KRUSEI 0 [facility] hcare CÉSAR KRUSEI Not detected [facility] CITROBACTER FREUNDII 0 [facility] Healthcare CITROBACTER FREUNDII Not detected NO [facility] ENTEROBACTER AEROGENES, CLOACAE 0 [facility] re ENTEROBACTER AEROGENES, CLOACAE Not detected [facility] re ENTEROCOCCUS FAECALIS, FAECIUM 0 [facility] e ENTEROCOCCUS FAECALIS, FAECIUM Not detected [facility] e ESCHERICHIA COLI 0 [facility] ESCHERICHIA COLI Not detected [facility] KLEBSIELLA PNEUMONIAE, OXYTOCA 0 [facility] are KLEBSIELLA PNEUMONIAE, OXYTOCA Not detected [facility] are MORGANELLA MORGANII 0 [facility] Healthcare MORGANELLA MORGANII Not detected [facility] PROTEUS MIRABILIS, VULGARIS 0 [facility] Healthcare PROTEUS MIRABILIS, VULGARIS Not detected [facility] PSEUDOMONAS AERUGINOSA 0 [facility]UD[facility]ERUGINOSA Not detected [facility] SERRATIA MARCESCENS 0 [facility] SERRATIA MARCESCENS Not detected [facility] STAPHYLOCOCCUS AUREUS 0 [facility] Healthcare STAPHYLOCOCCUS AUREUS Not detected [facility] STREPTOCOCCUS AGALACTIAE (GROUP B STREP) 0 [facility] Healthcare STREPTOCOCCUS AGALACTIAE (GROUP B STREP) Not detected [facility] STREPTOCOCCUS PYOGENES (GROUP A STREP) 0 [facility] Healthcare STREPTOCOCCUS PYOGENES (GROUP A STREP) Not detected [facility] Healthcar e ALL CBC WITH AUTO DIFFon BASOPHILS ABSOLUTE AUTO 0.1 [facility] Basophils/100 WBC (Bld) 0.7 % 0.2 - 2.0 % [facility] Eosinophils/100 WBC (Bld) 2.1 % 0.9 - 7.0 % [facility] Erythrocyte distribution width (RBC) [Ratio] 12.5 % 11.0 - 15.0 % [facility] Hematocrit (Bld) [Volume fraction] 41.4 % 36.0 - 48.0 % [facility] Hemoglobin (Bld) [Mass/Vol] 14.1 g/dL 12.0 - 16.0 g/dL [facility] IMMATURE GRANULOCYTES ABS AUTO 0.01 [facility] Immature granulocytes/100 WBC (Bld) 0.1 % 0.0 - 0.5 % [facility] LYMPHOCYTES ABSOLUTE AUTO 1.9 [facility] Lymphocytes/100 WBC (Bld) 27.6 % 20.5 - 60.0 % [facility] MCH (RBC) [Entitic mass] 31.6 pg 26.7 - 34.0 pg [facility] MCHC (RBC) [Mass/Vol] 34.1 g/dL 29.9 - 35.2 g/dL [facility] MCV (RBC) [Entitic vol] 92.8 fL 81.0 - 99.0 fL [facility] MONOCYTES ABSOLUTE AUTO 0.6 [facility] Monocytes/100 WBC (Bld) 9 % 1.7 - 12.0 % [facility] NEUTROPHILS ABSOLUTE AUTO 4.2 [facility] Neutrophils/100 WBC (Bld) 60.5 % 43.0 - 75.0 % [facility] Platelet mean volume (Bld) [Entitic vol] 10 fL 9.5 - 13.5 fL [facility] EO # 0.2 [facility] TB PLT 198 [facility] TB RBC 4.46 [facility] e [facility] WBC 7 [facility] Urinalysis macro (dipstick) panel (U)on 04-12-2024 Bilirubin, UA Negative Negative - (70) +++ mg/dL [facility] Blood, UA Positive Negative - 50 Papito/mcL [facility] Clarity, UA Clear [facility] re Color, UA Yellow [facility] Glucose, UA Negative Negative - 1999(110) ++++ mg/dL [facility] Interpretation and review of laboratory results Abnormal [facility] Ketones, UA Negative Negative - 160(16) ++++ mg/dL [facility] Leukocytes, UA Negative Negative - 500+++ Cedric/mcL [facility] Nitrite, UA Negative Negative - Positive [facility] pH, UA 6 5 - 9 [facility] e Protein, UA Negative Negative - 1999(20) ++++ mg/dL [facility] Spec Grav, UA 1.02 1 - 1.03 [facility] Urobilinogen, UA 1.0 0.2 - 12 mg/dL [facility] e Cult,Urineon 02-10-2024 Cult,Urine Specimen Description .CLEAN CATCH URINE Culture NO SIGNIFICANT GROWTH Report Status FINAL 02/10/2024 Normal [facility] Comment on above: Performed By: #### U RC #### [address] [place], [place] [id number] Client Success Specialist: Enrique Ortega MD [facility] [address] [place], [place] [phone] Client Success Specialist: Taran De Los Santos MD Basic Metabolic Profon 02-07 Anion gap [Moles/Vol] 11 mmol/L Normal 02-07 [facility] Comment on above: Performed By: #### T JONES UMANZOR, CDP ####[facility] , [place] [id number] Lab Director: Taran De Los Santos MD BUN/CRE Ratio 11 Normal 02-11 [facility] Comment on above: Performed By: #### T JONES UMANZOR, CDP ####[facility] , [place] [phone] Lab Director: Taran De Los Santos MD Calcium [Mass/Vol] 9.6 mg/dL Normal 8.6-10.4 [facility] Comment on above: Performed By: #### T JONES UMANZOR, CDP ####[facility] , [place] [id number] Lab Director: Taran De Los Santos MD Chloride [Moles/Vol] 103 mmol/L Normal 98-107 [facility] Comment on above: Performed By: #### JONES CHA, CDP ####[facility] , [place] [phone] Lab Director: Taran De Los Santos MD CO2 [Moles/Vol] 26 mmol/L Normal 20-31 [facility] Comment on above: Performed By: #### T JONES UMANZOR, CDP ####[facility] [place] [address] Lab Director: Taran De Los Santos MD Creatinine [Mass/Vol] 0.9 mg/dL Normal 0.50-0.90 [facility] Comment on above: Performed By: #### T JONES UMANZOR, CDP ####[facility] , [place] [address] Lab Director: Taran De Los Santos MD GFR/1.73 sq M.predicted among non-blacks MDRD (S/P/Bld) [Vol rate/Area] 85 mL/min/{1.73_m2} Normal >60 [facility] Comment on above: Result Comment: These [...] Performed By: #### T JONES UMANZOR, CDP ####[address] , [place] 3[address] Lab Director: Taran De Los Santos MD Glucose [Mass/Vol] 98 mg/dL Normal 74-99 [facility] Comment on above: Performed By: #### T JONES UMANZOR, CDP ####[facility] , [place] [address]83 Lab Director: Taran De Los Santos MD Potassium [Moles/Vol] 4.0 mmol/L Normal 3.7-5.3 [facility] Comment on above: Performed By: #### T JONES UMANZOR, CDP ####[facility] [place] [address] Lab Director: Taran De Los Santos MD Sodium [Moles/Vol] 140 mmol/L Normal 136-145 [facility] Comment on above: Performed By: #### T JONES UMANZOR, CDP ####[address] , [place] 9[address] Lab Director: Taran De Los Santos MD Urea nitrogen [Mass/Vol] 10 mg/dL Normal 6-20 [facility] Comment on above: Performed By: #### T JONES UMANZOR, CDP ####[address] [place] [address] lab Director: Taran De Los Santos MD CBC with Diffon 02-08-2024 Abs. Basophil 0.03 k/uL Normal 0.00-0.20 [facility] Comment on above: Performed By: #### JONES CHA, CDP ####[address] , [place] [phone] Lab Director: Taran De Los Santos MD Abs.Imm.Granulocyte <0.03 Normal 0.00-0.30 [facility] Comment on above: Performed By: #### JONES CHA, CDP ####[address] , [place] [phone] Lab Director: Taran De Los Santos MD Abs.Neutrophil (Seg) 3.12 k/uL Normal 1.50-8.10 [facility] Comment on above: Performed By: #### T JONES UMANZOR, CDP ####[address] , [place] [address] Lab Director: Taran De Los Santos MD Basophils/100 WBC (Bld) 1 % Normal 0-2 [facility] Comment on above: Performed By: #### JONES CHA, CDP ####[address] , [place] [phone] Lab Director: Taran De Los Santos MD Eosinophils (Bld) [#/Vol] 0.11 10*3/uL Normal 0.00-0.44 [facility] Comment on above: Performed By: #### JONES CHA, CDP ####[address] , [place] [address] [facility] Director: Taran De Los Santos MD Eosinophils/100 WBC (Bld) 2 % Normal 1-4 [facility] Comment on above: Performed By: #### JONES CHA, CDP ####[address] , [place] [address] lab Director: Taran De Los Santos MD Erythrocyte distribution width (RBC) [Ratio] 12.2 % Normal 11.8-14.4 [facility] Comment on above: Performed By: #### JONES CHA, CDP ####[address] [place] [address] lab Director: Taran De Los Santos MD Hematocrit (Bld) [Volume fraction] 44.3 % Normal 36.3-47.1 [facility] Comment on above: Performed By: #### JONES CHA, CDP ####[address] , [place] [address] Lab Director: Taran De Los Santos MD Hemoglobin (Bld) [Mass/Vol] 15.3 g/dL High 11.9-15.1 [facility] Comment on above: Performed By: #### JONES CHA, CDP ####[address] , [place] [address] lab Director: Taran De Los Santos MD Immature granulocytes/100 WBC (Bld) 0 % Normal 0 [facility] Comment on above: Performed By: #### JONES CHA, CDP ####[address] , [facility] lab Director: Taran De Los Santos MD Lymphocytes (Bld) [#/Vol] 2.44 10*3/uL Normal 1.10-3.70 [facility] Comment on above: Performed By: #### JONES CHA, CDP ####[address] , [place] [id number] Lab Director: Taran De Los Santos MD Lymphocytes/100 WBC (Bld) 40 % Normal 24-43 [facility] Comment on above: Performed By: #### JONES CHA, CDP ####[address] , [facility]83 Lab Director: Taran De Los Santos MD MCH (RBC) [Entitic mass] 30.9 pg Normal 25.2-33.5 [facility] Comment on above: Performed By: #### JONES CHA, CDP ####[address] , [facility] lab Director: Taran De Los Santos MD MCHC (RBC) [Mass/Vol] 34.5 g/dL Normal 28.4-34.8 [facility] Comment on above: Performed By: #### JONES CHA, CDP ####[address] , [facility] Lab Director: Taran De Los Santos MD MCV (RBC) [Entitic vol] 89.5 fL Normal 82.6-102.9 [facility] Comment on above: Performed By: #### JONES CHA, CDP ####[address] , [facility] Lab Director: Taran De Los Santos MD Monocytes (Bld) [#/Vol] 0.34 10*3/uL Normal 0.10-1.20 [facility] Comment on above: Performed By: #### JONES CHA, CDP ####[address] [place] [address] Lab Director: Taran De Los Santos MD Monocytes/100 WBC (Bld) 6 % Normal 3-12 [facility] Comment on above: Performed By: #### JONES CHA, CDP ####[address] , [place] [phone] Lab Director: Taran De Los Santos MD Neutrophil (Seg) 51 % Normal 36-65 [facility] Comment on above: Performed By: #### T JONES UMANZOR, CDP ####[address] , [place] [address] Lab Director: Taran De Los Santos MD NRBC Automated 0.0 per 100 WBC Normal 0.0 [facility] Comment on above: Performed By: #### T JONES UMANZOR, CDP ####[address] , [place] [address]83 Lab Director: Taran De Los Santos MD Platelet mean volume (Bld) [Entitic vol] 10.8 fL Normal 8.1-13.5 [facility] Comment on above: Performed By: #### T JONES UMANZOR, CDP ####[address] , [place] [phone] Lab Director: Taran De Los Santos MD Platelets (Bld) [#/Vol] 165 10*3/uL Normal 138-453 [facility] Comment on above: Performed By: #### JONES CHA, CDP ####[address] , [place] [id number] Lab Director: Taran De Los Santos MD RBC (Bld) [#/Vol] 4.95 10*6/uL Normal 3.95-5.11 [facility] Comment on above: Performed By: #### T JONES UMANZOR, CDP ####[address] [place] [address] Lab Director: Taran De Los Santos MD WBC (Bld) [#/Vol] 6.1 10*3/uL Normal 3.5-11.3 [facility] Comment on above: Performed By: #### T ROPI, BMP, CDP ####[facility] [place] [address] lab Director: Taran De Los Santos MD [...] Torres Fischer MD 02/08/24 Final result Normal [facility] HCG, ,Urineon 02-07 Beta HCG ( test) Ql (U) Negative Normal NEG [facility] Comment on above: Result Comment: Spec imens with hCG levels near the threshold of the test (25 mIU/mL) may give a negative or indeterminate result. In such cases, another test should be performed with a new specimen in 48-72 hours. If early is suspected clinically in this setting, correlation with quantitative serum b-hCG level is suggested. [facility] the use of plasma for this test. This has not been cleared or approved by the U.S. Food and Drug Administration. The FDA has determined that such clearance is not necessary. Performed By: #### U HCG, LURDES MARCIALX #### [facility] [address] [place] [phone] Client Success Specialist: Taran De Los Santos MD Troponinon 02-08-2024 Troponin, High Sens <6 Normal 0-14 [facility] Comment on above: Result Comment: High Sensitivity Troponin values cannot be compared with other Troponin methodologies. Performed By: #### T ROPI, BMP, CDP ####[facility] , [place] [phone] Lab Director: Taran De Los Santos MD UA w/Reflex Cultureon 2023 Bilirubin, SemiQt,Ur Negative Normal NEG [facility] Comment on above: Performed By: #### U HCG, UMICAO, UAX #### [facility] [address] [place] [address] Dr[place], [place] [phone] Client Success Specialist: Taran De Los Santos MD Blood, Urine 3+ Abnormal NEG [facility] Comment on above: Performed By: #### U HCG, UMICAO, UAX #### [facility] [address] [place] [address] Dr[place], [place] [phone] Client Success Specialist: Taran De Los Santos MD Clarity (U) SLIGHTLY CLOUDY Abnormal CLEAR [facility] Comment on above: Performed By: #### U HCG, UMICAO, UAX #### [facility] [address] [place] [address] [place] [address] Client Success Specialist: Taran De Los Santos MD Color (U) Yellow Normal YEL [facility] Comment on above: Performed By: #### U HCG, UMICAO, UAX #### [facility] [address] [place], [place] [phone] Client Success Specialist: Taran De Los Santos MD Glucose Ql (U) Negative Normal NEG [facility] Comment on above: Performed By: #### U HCG, UMICAO, UAX #### [facility] [address] [place], [place] [phone] Client Success Specialist: Taran De Los Santos MD Ketones Ql (U) Negative Normal NEG [facility] Comment on above: Performed By: #### U HCG, UMICAO, UAX #### [facility] [address] [place] [address] Dr. [place], [facility] Client Success Specialist: Taran De Los Santos MD Leukocyte esterase Test strip Ql (U) MODERATE Abnormal NEG [facility] Comment on above: Performed By: #### U HCG, UMICAO, UAX #### [facility] [address] [place] [address] Dr. [place], [place] [address] Client Success Specialist: Taran De Los Santos MD Nitrite,Ur Negative Normal NEG [facility] Comment on above: Performed By: #### U HCG, UMICAO, UAX #### [address] [place] [phone] Client Success Specialist: Taran De Los Santos MD PH,Ur 6.0 Normal 5.0-9.0 [facility] Comment on above: Performed By: #### U HCG, UMICAO, UAX #### [facility] [address] [place] [address] Dr. [place], [place] [address] Client Success Specialist: Taran De Los Santos MD Protein Ql (U) Negative Normal NEG [facility] Comment on above: Performed By: #### U HCG, UMICAO, UAX #### [address] [place], [facility]83 Client Success Specialist: Taran De Los Santos MD Spec. [place],Ur 1.025 High 1.010-1.020 [facility] Comment on above: Performed By: #### U HCG, UMICAO, UAX #### [address] [place] [phone] Client Success Specialist: Taran De Los Santos MD Urobilinogen,Ur Normal Normal 0.0-1.0 [facility] Comment on above: Performed By: #### U HCG, UMICAO, UAX #### [address] [place] [phone] Client Success Specialist: Taran De Los Santos MD Urinalysis,Microon 4 Urine WBC's 10 TO 20 Normal 0-5 [facility] Comment on above: Result Comment: LATASHA ECTED ON 02/07 AT 1553: PREVIOUSLY REPORTED 15 TO 30 Performed By: #### U HCG, UMICAO, UAX ####[facility] , [place] [phone] [facility] Director: Taran De Los Santos MD Bacteria 2+ Abnormal NONE [facility] Comment on above: Performed By: #### U HCG, UMICAO, UAX #### [facility] [address] [place], [place] [phone] Client Success Specialist: Taran De Los Santos MD Performed By: #### U HCG, UMICAO, UAX ####[address] , [place] 9[address] [facility] Director: Taran De Los Santos MD Epithelial cells LM Ql (Urine sed) 10 TO 20 Normal 0-25 [facility] Comment on above: Performed By: #### U HCG, UMICAO, UAX #### [address] [place], [place] [phone] Client Success Specialist: Taran De Los Santos MD Performed By: #### U HCG, UMICAO, UAX ####[facility] , [place] [phone] [facility] Director: Taran De Los Santos MD Urine RBC's 2 TO 5 Normal 0-2 [facility] Comment on above: Performed By: #### U HCG, UMICAO, UAX #### [facility] [address] [place], [place] [phone] Client Success Specialist: Taran De Los Santos MD Performed By: #### U HCG, UMICAO, UAX ####[facility] [place] [address] Lab Director: Taran De Los Santos MD Urine WBC's 15 TO 30 Normal 0-5 [facility] Comment on above: Performed By: #### U HCG, MIKHAILO, UAX #### [facility] [address] [place] [address] Client Success Specialist: Taran De Los Santos MD XR CHEST [...] Peter Ugalde MD 02/08/24 Final result Normal [facility] [id number] 02-04-2024 SARS-CoV-2 (COVID-19) RNA AMPARO+probe Ql (Unsp spec) Detected Abnormal NOTDET [facility] Comment on above: Result Comment: Rapid [...] this assay. Fact sheet for Healthcare Providers: https://www.fda.gov/media/596349/download Fact sheet for Patients: https://www.fda.gov/media/670893/download Methodology: Isothermal Nucleic Acid Amplification Results reported to the appropriate Health Department Performed By: #### C OVRB #### [facility] [address] [place] [address] Client Success Specialist: Taran De Los Santos MD XR CHEST [...] Peter Ugalde MD 02/04/24 Final result Normal [facility] Renard 09-23-2023 L Specimen: Received: 09/24/23 Status: SOUHasmukh Ramirez Num: [id number] Spec Type: Impression Subm Dr: NAVJOT Alford Tissues: PATHPER Procedures: PATHREVIEW Age/ Patient Sex Location Account Attending Physician Lina Alcantar 32/F LABELL [id number] NAVJOT Alford SPEC NUM: [id number] RECD: 09/24/23 STATUS: NO RAMIREZ NUM: [id number] NITHIN: 09/23/[address]: NAVJOT Alford ENTERED: 09/24/[address] [facility] DR: Mitzi Wolf SPEC TYPE: Impression DEPT: CORINNA Cross ENTERED BY: [id number] RECV BY: [id number] ORDERED: PATHREVIEW ORDERED: PATHREVIEW Pathologist Review Abnormal [...] the serum iron profile as needed CPT: 57558 CBC No results available. -------- -------- Specimen: [id number] Received: 09/24/23 Status: NO Ramirez Num: [id number] Spec Type: Impression Subm Dr: NAVJOT Alford Tissues: PATHPER Procedures: PATHREVIEW -------- Patient: Lina Alcantar [id number] (Continued) -------- Signed (signature on file) Nola Payne MD 09/24/23 1431 Normal [facility] CBC with Auto Differentialon 09-10-2023 Basophils (Bld) [#/Vol] 0.09 10*3/uL [facility] Basophils/100 WBC (Bld) 1 % 0 - 2 % [facility] Eosinophils (Bld) [#/Vol] 0.27 10*3/uL [facility] Eosinophils/100 WBC (Bld) 3 % 1 - 4 % [facility] Erythrocyte distribution width (RBC) [Ratio] 12.5 % 11.8 - 14.4 % [facility] Hematocrit (Bld) [Volume fraction] 40.9 % 36.3 - 47.1 % [facility] Hemoglobin (Bld) [Mass/Vol] 13.9 g/dL 11.9 - 15.1 g/dL [facility] Immature granulocytes (Bld) [#/Vol] 0.00 10*3/uL [facility] Immature granulocytes/100 WBC (Bld) 0 % 0 [facility] Interpretation and review of laboratory results Abnormal [facility] Lymphocytes/100 WBC (Bld) 27 % 24 - 43 % [facility] Lymphocytes/100 WBC (Bld) 2.40 % [facility] MCH (RBC) [Entitic mass] 30.7 pg 25.2 - 33.5 pg [facility] MCHC (RBC) [Mass/Vol] 34.0 g/dL 28.4 - 34.8 g/dL [facility] MCV (RBC) [Entitic vol] 90.3 fL 82.6 - 102.9 fL [facility] Monocytes/100 WBC (Bld) 8 % 3 - 12 % [facility] Monocytes/100 WBC (Bld) 0.71 % [facility] Morphology [place] (Bld) [Interp] Normal [facility] Neutrophils/100 WBC (Bld) 61 % 36 - 65 % [facility] Nucleated RBC/100 WBC (Bld) [Ratio] 0.0 % 0.0 per 100 WBC [facility] Platelet, Fluorescence 73 Low [facility] Platelets (Bld) [#/Vol] See Reflexed IPF Result [facility] Platelets reticulated/100 platelets Auto (Bld) 19.5 % High 1.1 - 10.3 % [facility] RBC (Bld) [#/Vol] 4.53 10*6/uL 3.95 - 5.1 1 m/uL [facility] Segmented neutrophils/100 WBC (Bld) 5.43 % [facility] WBC other (Bld) [#/Vol] 8.9 [facility] CBC with Diffon 09-10-2023 Abs. Basophil 0.09 k/uL Normal 0.0-0.2 [facility] Comment on above: Performed By: #### R EJEC, CDP ####[address] [place] [address] Lab Director: Taran De Los Santos MD Abs.Imm.Granulocyte 0.00 k/uL Normal 0.00-0.30 [facility] Comment on above: Performed By: #### R JOHN, CDP ####[address] , [facility] Lab Director: Taran De Los Santos MD Abs.Neutrophil (Seg) 5.43 k/uL Normal 1.50-8.10 [facility] Comment on above: Performed By: #### R JOHN, CDP ####[address] [place] [address] Lab Director: Taran De Los Santos MD Basophils/100 WBC (Bld) 1 % Normal 0-2 [facility] Comment on above: Performed By: #### R JOHN, CDP ####[address] , [facility]83 Lab Director: Taran De Los Santos MD Eosinophils (Bld) [#/Vol] 0.27 10*3/uL Normal 0.00-0.44 [facility] Comment on above: Performed By: #### R EJEC, CDP ####[address] , [place] [address] Lab Director: Taran De Los Santos MD Eosinophils/100 WBC (Bld) 3 % Normal 1-4 [facility] Comment on above: Performed By: #### R EJEC, CDP ####[address] , [place] [id number] Lab Director: Taran De Los Santos MD Immature granulocytes/100 WBC (Bld) 0 % Normal 0 [facility] Comment on above: Performed By: #### R EJEC, CDP ####[address] , [place] [address] Lab Director: Taran De Los Santos MD Lymphocytes (Bld) [#/Vol] 2.40 10*3/uL Normal 1.10-3.70 [facility] Comment on above: Performed By: #### R EJEC, CDP ####[address] , [place] 8[address]83 Lab Director: Taran De Los Santos MD Lymphocytes/100 WBC (Bld) 27 % Normal 24-43 [facility] Comment on above: Performed By: #### R EJEC, CDP ####[address] , [place] [phone] Lab Director: Taran De Los Santos MD Monocytes (Bld) [#/Vol] 0.71 10*3/uL Normal 0.10-1.20 [facility] Comment on above: Performed By: #### R EJEC, CDP ####[address] [place] [address] Lab Director: Taran De Los Santos MD Monocytes/100 WBC (Bld) 8 % Normal 3-12 [facility] Comment on above: Performed By: #### R EJEC, CDP ####[address] , [place] [address] Lab Director: Taran De Los Santos MD Morphology [place] (Bld) [Interp] Normal Normal [facility] Comment on above: Performed By: #### R EJEC, CDP ####[address] , [place] [id number] Lab Director: Taran De Los Santos MD Neutrophil (Seg) 61 % Normal 36-65 [facility] Comment on above: Performed By: #### R EJEC, CDP ####[address] , [place] [id number] Lab Director: aTran De Los Santos MD Erythrocyte distribution width (RBC) [Ratio] 12.5 % Normal 11.8-14.4 [facility] Comment on above: Performed By: #### R EJEC, CDP ####[address] , [place] [phone] Lab Director: Taran De Los Santos MD Hematocrit (Bld) [Volume fraction] 40.9 % Normal 36.3-47.1 [facility] Comment on above: Performed By: #### R JOHN, CDP ####[address] , [place] [address]83 Lab Director: Taran De Los Santos MD Hemoglobin (Bld) [Mass/Vol] 13.9 g/dL Normal 11.9-15.1 [facility] Comment on above: Performed By: #### R JOHN, CDP ####[address] , [place] [phone] Lab Director: Taran De Los Santos MD MCH (RBC) [Entitic mass] 30.7 pg Normal 25.2-33.5 [facility] Comment on above: Performed By: #### R EJEC, CDP ####[address] , [place] 599[address]83 Lab Director: Taran De Los Santos MD MCHC (RBC) [Mass/Vol] 34.0 g/dL Normal 28.4-34.8 [facility] Comment on above: Performed By: #### R EJCEDRIC, CDP ####[address] , [place] [phone] Lab Director: Taran De Los Santos MD MCV (RBC) [Entitic vol] 90.3 fL Normal 82.6-102.9 [facility] Comment on above: Performed By: #### R JOHN, CDP ####[address] , [place] [address]83 Lab Director: Taran De Los Santos MD NRBC Automated 0.0 per 100 WBC Normal 0.0 [facility] Comment on above: Performed By: #### R JOHN, CDP ####[address] [place] [address] Lab Director: Taran De Los Santos MD Platelet Count See Reflexed IPF Result Normal 138-453 [facility] Comment on above: Performed By: #### R JOHN, CDP ####[address] , [place] [phone] Lab Director: Taran De Los Santos MD Platelet, Fluoresc. 73 k/uL Low 138-453 [facility] Comment on above: Performed By: #### R JOHN, CDP ####[address] [place] [address] Lab Director: Taran De Los Santos MD PLT, Immature Fract. 19.5 % High 1.1-10.3 [facility] Comment on above: Performed By: #### Jerel LOPEZ, CDP ####[address] , [place] [phone] Director: Taran De Los Santos MD RBC (Bld) [#/Vol] 4.53 10*6/uL Normal 3.95-5.11 [facility] Comment on above: Performed By: #### R JOHN, CDP ####[address] , [place] [phone] Lab Director: Taran De Los Santos MD WBC (Bld) [#/Vol] 8.9 10*3/uL Normal 3.5-11.3 [facility] Comment on above: Performed By: #### R EJEC, CDP ####[facility] [place] , [place] 67[address] Lab Director: Taran De Los Santos MD Comp Metabolic Profon 2023 Albumin [Mass/Vol] 4.1 g/dL Normal 3.5-5.2 [facility] Comment on above: Performed By: #### C P ####[address] , [place] [phone] Lab Director: Taran De Los Santos MD Albumin/Glob Ratio 1.4 Normal 1.0-2.5 [facility] Comment on above: Performed By: #### C P ####[address] , [place] 29[address]83 Lab Director: Taran De Los Santos MD Alkaline Phos 98 U/L Normal 35-104 [facility] Comment on above: Performed By: #### C P ####[address] , [place] 526[address]83 Lab Director: Taran De Los Santos MD ALT [Catalytic activity/Vol] 11 U/L Normal 5-33 [facility] Comment on above: Performed By: #### C P ####[address] [place] [address] Lab Director: Taran De Los Santos MD Anion gap [Moles/Vol] 10 mmol/L Normal 9-17 [facility] Comment on above: Performed By: #### C P ####[address] , [place] 9[address]83 Lab Director: Taran De Los Santos MD AST [Catalytic activity/Vol] 15 U/L Normal <32 [facility] Comment on above: Performed By: #### C P ####[address] , [place] 7332[address] Lab Director: Taran De Los Santos MD Bilirubin [Mass/Vol] 0.2 mg/dL Low 0.3-1.2 [facility] Comment on above: Performed By: #### C P ####[facility] [place] , [place] 2928[address] Lab Director: Taran De Los Santos MD BUN/CRE Ratio 21 High 9-20 [facility] Comment on above: Performed By: #### C P ####[address] , [place] 047[address]83 lab Director: Taran De Los Santos MD Calcium [Mass/Vol] 9.1 mg/dL Normal 8.6-10.4 [facility] Comment on above: Performed By: #### C P ####[address] , [place] 8[address]83 lab Director: Taran De Los Santos MD Chloride [Moles/Vol] 103 mmol/L Normal 98-107 [facility] Comment on above: Performed By: #### C P ####[address] , [place] [phone] lab Director: Taran De Los Santos MD CO2 [Moles/Vol] 24 mmol/L Normal 20-31 [facility] Comment on above: Performed By: #### C P ####[address] , [place] [phone] lab Director: Taran De Los Santos MD Creatinine [Mass/Vol] 0.7 mg/dL Normal 0.5-0.9 [facility] Comment on above: Performed By: #### C P ####[address] , [place] [phone] lab Director: Taran De Los Santos MD GFR/1.73 sq M.predicted among non-blacks MDRD (S/P/Bld) [Vol rate/Area] mL/min/{1.73_m2} Normal >60 [facility] Comment on above: Result Comment: These [...] tubular secretion. Performed By: #### C P ####[address] [place] [address] Lab Director: Taran De Los Santos MD Glucose [Mass/Vol] 92 mg/dL Normal 70-99 [facility] Comment on above: Performed By: #### C P ####[address] , [place] [phone] Lab Director: Taran De Los Santos MD Potassium [Moles/Vol] 3.9 mmol/L Normal 3.7-5.3 [facility] Comment on above: Performed By: #### C P ####[address] [place] [address] Lab Director: Taran De Los Santos MD Protein [Mass/Vol] 7.1 g/dL Normal 6.4-8.3 [facility] Comment on above: Performed By: #### C P ####[address] [place] [address] Lab Director: Taran De Los Santos MD Sodium [Moles/Vol] 137 mmol/L Normal 135-144 [facility] Comment on above: Performed By: #### C P ####[address] [place] [address] Lab Director: Taran De Los Santos MD Urea nitrogen [Mass/Vol] 15 mg/dL Normal 6-20 [facility] Comment on above: Performed By: #### C P ####[address] , [place] [id number] Lab Director: Taran De Los Santos MD [facility] Metabolic Pane [facility] 09-10-2023 Albumin [Mass/Vol] 4.1 g/dL 3.5 - 5.2 g/dL [facility] Albumin/Globulin [Mass ratio] 1.4 {ratio} 1.0 - 2.5 [facility] ALP [Catalytic activity/Vol] 98 U/L 35 - 104 U/L [facility] ALT [Catalytic activity/Vol] 11 U/L 5 - 33 U/L [facility] Anion gap [Moles/Vol] 10 mmol/L 9 - 17 mmol/L [facility] AST [Catalytic activity/Vol] 15 U/L NINF - 32 U/L [facility] Bilirubin [Mass/Vol] 0.2 mg/dL Low 0.3 - 1 .2 mg/dL [facility] Calcium [Mass/Vol] 9.1 mg/dL 8.6 - 10. 4 mg/dL [facility] Chloride [Moles/Vol] 103 mmol/L 98 - 10 7 mmol/L [facility] CO2 [Moles/Vol] 24 mmol/L 20 - 31 mmol/L [facility] Creatinine [Mass/Vol] 0.7 mg/dL 0.5 - 0.9 mg/dL [facility] GFR/1.73 sq M.predicted MDRD (S/P/Bld) [Vol rate/Area] - PINF [facility] Comment on above: These results [...] [Mass/Vol] 92 mg/dL 70 - 99 mg/dL [facility] Interpretation and review of laboratory results Abnormal [facility] Potassium [Moles/Vol] 3.9 mmol/L 3.7 - 5.3 mmol/L [facility] Protein [Mass/Vol] 7.1 g/dL 6.4 - 8.3 g/dL [facility] Sodium [Moles/Vol] 137 mmol/L 135 - 144 mmol/L [facility] Urea nitrogen [Mass/Vol] 15 mg/dL 6 - 20 mg/dL [facility] Urea nitrogen/Creatinine [Mass ratio] 21 mg/mg High 9 - 20 [facility] HCG, ,Urineon 09-09 Beta HCG ( test) Ql (U) Negative Normal NEG [facility] Comment on above: Result Comment: Spec imens with hCG levels near the threshold of the test (25 mIU/mL) may give a negative or indeterminate result. In such cases, another test should be performed with a new specimen in 48-72 hours. If early is suspected clinically in this setting, correlation with quantitative serum b-hCG level is suggested. [facility] has confirmed the use of plasma for this test. This has not been cleared or approved by the U.S. Food and Drug Administration. The FDA has determined that such clearance is not necessary. Performed By: #### U HCG, UAMIC ####[facility] [place] [address] lab Director: Taran De Los Santos MD , Urineon 4 HCG ( test) Ql (U) Negative NEGATIVE [facility] Comment on above: Specimens with hCG l evels near the threshold of the test (25 mIU/mL) may give a negative or indeterminate result. In such cases, another test should be performed with a new specimen in 48-72 hours. If early is suspected clinically in this setting, correlation with quantitative serum b-hCG level is suggested. [facility] has confirmed the use of plasma for this test. This has not been cleared or approved by the U.S. Food and Drug Administration. The FDA has determined that such clearance is not necessary. [facility] Specimen Rejectionon 024 Reason for rejection Unable to perform testing: Specimen hemolyzed. Normal [facility] Comment on above: Performed By: #### R EJEC, CDP ####[facility] [place] [address] lab Director: Taran De Los Santos MD Source of sample .BLOOD Normal [facility] Comment on above: Performed By: #### R EJEC, CDP ####[facility] [place] [address] , [place] [address] Lab Director: Taran De Los Santos MD Test ordered CP Normal [facility] Comment on above: Performed By: #### R EJEC, CDP ####[facility] [place] [address] , [place] [id number] Lab Director: Taran De Los Santos MD Urinalysis w/ Microon 2023 Amorphous sediment LM Ql (Urine sed) 1+ Abnormal [facility] Comment on above: Performed By: #### U HCG, UAMIC ####[address] [place] [address] Lab Director: Taran De Los Santos MD Bacteria 3+ Abnormal NONE [facility] Comment on above: Performed By: #### U HCG, UAMIC ####[address] [place] [address] Lab Director: Taran De Los Santos MD Bilirubin, SemiQt,Ur Negative Normal NEG [facility] Comment on above: Performed By: #### U HCG, UAMIC ####[address] [place] [address] Lab Director: Taran De Los Santos MD Blood, Urine Negative Normal NEG [facility] Comment on above: Performed By: #### U HCG, UAMIC ####[address] [place] [address] Lab Director: Taran De Los Santos MD Clarity (U) SLIGHTLY CLOUDY Abnormal CLEAR [facility] Comment on above: Performed By: #### U HCG, UAMIC ####[address] [place] [address] Lab Director: Taran De Los Santos MD Color (U) Yellow Normal YEL [facility] Comment on above: Performed By: #### U HCG, UAMIC ####[address] , [place] [id number] Lab Director: Taran De Los Santos MD Epithelial cells LM Ql (Urine sed) 2 TO 5 Normal 0-25 [facility] Comment on above: Performed By: #### U HCG, UAMIC ####[address] , [place] [id number] Lab Director: Taran De Los Santos MD Glucose Ql (U) Negative Normal NEG [facility] Comment on above: Performed By: #### U HCG, UAMIC ####[address] , [place] 873[address]83 Lab Director: Taran De Los Santos MD Ketones Ql (U) Negative Normal NEG [facility] Comment on above: Performed By: #### U HCG, UAMIC ####[address] [place] [address] Lab Director: Taran De Los Santos MD Leukocyte esterase Test strip Ql (U) SMALL Abnormal NEG [facility] Comment on above: Performed By: #### U HCG, UAMIC ####[address] , [place] 9[address]83 Lab Director: Taran De Los Santos MD Nitrite,Ur Negative Normal NEG [facility] Comment on above: Performed By: #### U HCG, UAMIC ####[address] , [place] 215[address]83 Lab Director: Taran De Los Santos MD PH,Ur 6.5 Normal 5.0-9.0 [facility] Comment on above: Performed By: #### U HCG, UAMIC ####[address] , [place] 0[address] Lab Director: Taran De Los Santos MD Protein Ql (U) Negative Normal NEG [facility] Comment on above: Performed By: #### U HCG, UAMIC ####[facility] , [place] 8[address]83 Lab Director: Taran De Los Santos MD Spec. [place],Ur 1.025 High 1.010-1.020 [facility] Comment on above: Performed By: #### U HCG, UAMIC ####[facility] [place] [address] lab Director: Taran De Los Santos MD Urine RBC's 0 TO 2 Normal 0-2 [facility] Comment on above: Performed By: #### U HCG, UAMIC ####[address] , [place] 107[address] lab Director: Taran De Los Santos MD Urine WBC's 0 TO 2 Normal 0-5 [facility] Comment on above: Performed By: #### U HCG, UAMIC ####[address] , [place] 797[address]83 lab Director: Taran De Los Santos MD Urobilinogen,Ur Normal Normal 0.0-1.0 [facility] Comment on above: Performed By: #### U HCG, UAMIC ####[address] , [place] 6[address] lab Director: Taran De Los Santos MD Urinalysis with Microscopico n 09-10-2023 Amorphous sediment LM Ql (Urine sed) 1+ Abnormal None [facility] Bacteria LM Ql (Urine sed) 3+ Abnormal None [facility] Bilirubin Ql (U) Negative NEGATIVE [facility] Clarity (U) SLIGHTLY CLOUDY Abnormal Clear [facility] Color (U) Yellow Yellow [facility] Epithelial cells LM.HPF (Urine sed) [#/Area] 2 TO 5 [facility] Glucose Test strip (U) [Mass/Vol] Negative NEGATIVE mg/dL [facility] Hemoglobin Auto test strip Ql (U) Negative NEGATIVE [facility] Interpretation and review of laboratory results Abnormal [facility] Ketones (U) [Mass/Vol] Negative NEGATIVE mg/dL [facility] Leukocyte esterase Test strip Ql (U) SMALL Abnormal NEGATIVE [facility] Nitrite Ql (U) Negative NEGATIVE [facility] pH (U) 6.5 [pH] 5.0 - 9.0 [facility] Protein (U) [Mass/Vol] Negative NEGATIVE mg/dL [facility] RBC LM.HPF (Urine sed) [#/Area] 0 TO 2 [facility] Specific gravity (U) [Rel density] 1.025 High 1.010 - 1.020 [facility] Urobilinogen Qn (U) Normal 0.0 - 1. 0 EU/dL [facility] WBC LM.HPF (Urine sed) [#/Area] 0 TO 2 [facility] BMPon 10-23-2022 Anion gap [Moles/Vol] 10 mmol/L 9 - 17 mmol/L [facility] Calcium [Mass/Vol] 8.4 mg/dL Low 8.6 - 10. 4 mg/dL [facility] Chloride [Moles/Vol] 107 mmol/L 98 - 10 7 mmol/L [facility] CO2 [Moles/Vol] 24 mmol/L 20 - 31 mmol/L [facility] Creatinine [Mass/Vol] 0.88 mg/dL 0.50 - 0.90 mg/dL [facility] GFR/1.73 sq M.predicted MDRD (S/P/Bld) [Vol rate/Area] - PINF [facility] Comment on above: These results [...] [Mass/Vol] 95 mg/dL 70 - 99 mg/dL [facility] Potassium [Moles/Vol] 3.9 mmol/L 3.7 - 5.3 mmol/L [facility] Sodium [Moles/Vol] 141 mmol/L 135 - 144 mmol/L [facility] Urea nitrogen [Mass/Vol] 7 mg/dL 6 - 20 mg/dL [facility] Urea nitrogen/Creatinine [Mass ratio] 8 mg/mg Low 9 - 20 [facility] C-Reactive Proteinon 023 CRP High sensitivity method [Mass/Vol] 34 mg/L High 0.0 - 5.0 mg/L [facility] CBC with Auto Differentialon 10-23-2022 Basophils (Bld) [#/Vol] [facility] Basophils/100 WBC (Bld) 0 % 0 - 2 % [facility] Eosinophils (Bld) [#/Vol] 0.07 10*3/uL [facility] Eosinophils/100 WBC (Bld) 1 % 1 - 4 % [facility] Erythrocyte distribution width (RBC) [Ratio] 13.0 % 11.8 - 14.4 % [facility] Hematocrit (Bld) [Volume fraction] 39.0 % 36.3 - 47.1 % [facility] Hemoglobin (Bld) [Mass/Vol] 13.1 g/dL 11.9 - 15.1 g/dL [facility] Immature granulocytes (Bld) [#/Vol] [facility] Immature granulocytes/100 WBC (Bld) 0 % 0 [facility] Interpretation and review of laboratory results Abnormal [facility] Lymphocytes/100 WBC (Bld) 17 % Low 24 - 43 % [facility] Lymphocytes/100 WBC (Bld) 1.06 % Low [facility] MCH (RBC) [Entitic mass] 31.2 pg 25.2 - 33.5 pg [facility] MCHC (RBC) [Mass/Vol] 33.6 g/dL 28.4 - 34.8 g/dL [facility] MCV (RBC) [Entitic vol] 92.9 fL 82.6 - 102.9 fL [facility] Monocytes/100 WBC (Bld) 13 % High 3 - 12 % [facility] Monocytes/100 WBC (Bld) 0.82 % [facility] Neutrophils/100 WBC (Bld) 69 % High 36 - 65 % [facility] NRBC Automated 0.0 0.0 per 100 WBC [facility] Platelets (Bld) [#/Vol] See Reflexed IPF Result [facility] RBC (Bld) [#/Vol] 4.20 10*6/uL 3.95 - 5.1 1 m/uL [facility] Segmented neutrophils/100 WBC (Bld) 4.40 % [facility] WBC other (Bld) [#/Vol] 6.4 [facility] COVID-19, Rapidon 10-23-2022 SARS-CoV-2 (COVID-19) RdRp gene AMPARO+probe Ql (Resp) Not detected Not Detected [facility] Comment on above: Rapid NAAT: [...] management decisions. Fact sheet for Healthcare Providers: https://www.fda.gov/media/351622/download Fact sheet for Patients: https://www.fda.gov/media/770464/download Methodology: Isothermal Nucleic Acid Amplification Specimen Description .NASOPHARYNGEAL SWAB [facility] CT Head W/O Contraston 10-23 No acute [...] of the visualized skull or soft tissues. [facility] Joby La M D - 10/23/2022 EXAMINATION: [...] acute intracranial abnormality. Paranasal sinus inflammatory disease [employer] Phone: Radiology Study observation (narrative) [employer] Phone: CT Head W/O ContrastOrdered By: Joby Holt on 10-23-2022 [employer] Phone: Immature Platelet Fractionon 10-23-2022 Interpretation and review of laboratory results Abnormal [facility] Platelet, Fluorescence 128 Low [facility] Platelets reticulated/100 platelets Auto (Bld) 5.2 % 1.1 - 10.3 % [facility] Mononucleosis Screenon 10-23 Heterophile Ab IA Ql (Bld) Negative NEGATIVE [facility] No Panel Informationon 10-23 Interpretation and review of laboratory results Abnormal [facility] Rapid influenza A/B antigens on 10-23-2022 FLUAV Ag Ql (Unsp spec) Negative NEGATIVE [facility] Comment on above: for Influenza A Anti gen FLUBV Ag Ql (Unsp spec) Negative NEGATIVE [facility] Comment on above: for Influenza B Anti gen. [facility] Sedimentation Rateon 023 ESR (Bld) [Velocity] 11 mm/h [facility] XR CHEST PORTABLEon 10-24-19 No acute process. [...] are without acute process. Mild DJD spine. [facility] RIS CONSOLIDATED Damian Keys MD - 10/23/2022 [...] IMPRESSION: No acute process. Possible mild bronchitis. [facility]: Radiology Study observation (narrative) [facility] [employer] Work Phone: XR CHEST PORTABLEOrdered By: Damian Keys on 10-23-2022 [facility] [employer] Work Phone: COVID-19, Rapidon 10-22-2022 SARS-CoV-2 (COVID-19) RdRp gene AMPARO+probe Ql (Resp) Not detected Not Detected [facility] Comment on above: Rapid NAAT: [...] management decisions. Fact sheet for Healthcare Providers: https://www.fda.gov/media/991132/download Fact sheet for Patients: https://www.fda.gov/media/875053/download Methodology: Isothermal Nucleic Acid Amplification Specimen Description .NASOPHARYNGEAL SWAB [facility] GROUP A STREP CULTUREon 06-26 S. pyogenes Ag Ql (Unsp spec) Culture Observations: NEGATIVE FOR GROUP A STREPTOCOCCUS. Normal [facility] Comment on above: Performed By: #### C BC #### [facility] [address] [place] [address] Dr. Sofia Payne STREPT SCREENon 07-19-2022 STREP SCREEN A Negative Normal NEGATIVE [facility] Comment on above: Performed By: #### C BC #### [facility] [address] [place] [address] Dr. Sofia Payne Covid-19 PCR (CVDTBH)on 04-25 SARS-CoV-2 (COVID-19) RNA AMPARO+probe Ql (Unsp spec) Not detected Normal NOT DETECTED [facility] Comment on above: Result Comment: This test is not yet approved or cleared by the [place] FDA. When there are no FDA-approved or cleared tests available, and other criteria are met, FDA can make tests available under an emergency access mechanism called an Emergency Use Authorization (EUA). The EUA for this test is supported by the Carpenter of Health and Human Service's (HHS's) declaration [...] SARS-CoV-2. Performed By: #### C BC #### [facility] [address] [place] [address] Dr. Sofia Payne INFLUENZA A AND B AGon 05-[facility] BELOW Normal [facility] Comment on above: Result Comment: Nega tive for Flu A protein angiten. Infection due to Flu A cannot be ruled out. Flu A angiten in the sample may be below the detection limit of the test. Performed By: #### C BC #### [facility] [address] [place] [address] Dr. [facility] Normal [facility] Comment on above: Result Comment: Nega tive for Flu B protein antigen. Infection due to Flu B cannot be ruled out. Flu B antigen in the sample may be below the detection limit of the test. Performed By: #### C BC #### [facility] [address] [place] [address] Dr. Sofia Payne INFLUENZA A AG Negative Normal NEGATIVE SEE COMMENT [facility] Comment on above: Performed By: #### C BC #### [facility] [address] [place] [address] Dr. Sofia Payne INFLUENZA B AG Negative Normal NEGATIVE SEE COMMENT [facility] Comment on above: Performed By: #### C BC #### [facility] [address] [place] [address] Dr. Sofia Payne INTERNAL CONTROLS Within Normal Limits Normal Wi thin Normal Limits [facility] Comment on above: Performed By: #### C BC #### [facility] [address] [place] [address] Dr. Sofia Payne CBC AUTO DIFFon 05-01-2022 BASO # 0.0 103/ul Normal 0.0-0.1 [facility] Comment on above: Performed By: #### C BC #### [facility] [address] [place] [address] Dr. Sofia Payne Basophils/100 WBC (Bld) 0.4 % Normal 0.2-2.0 [facility] Comment on above: Performed By: #### C BC #### [facility] [address] [place] [address] Dr. Sofia Payne EO # 0.2 103/ul Normal 0.0-0.7 [facility] Comment on above: Performed By: #### C BC #### [facility] [address] [place] [address] Dr. Sofia Payne Eosinophils/100 WBC (Bld) 1.6 % Normal 0.9-7.0 [facility] Comment on above: Performed By: #### C BC #### [facility] [address] [place] [address] Dr. Sofia Payne Erythrocyte distribution width (RBC) [Ratio] 12.8 % Normal 11.0-15.0 [facility] Comment on above: Performed By: #### C BC #### [facility] [address] [place] [address] Dr. Sofia Payne Hematocrit (Bld) [Volume fraction] 41.9 % Normal 36.0-48.0 [facility] Comment on above: Performed By: #### C BC #### [facility] [address] [place] [address] Dr. Sofia Payne Hemoglobin (Bld) [Mass/Vol] 14.6 g/dL Normal 12.0-16.0 [facility] Comment on above: Performed By: #### C BC #### [facility] [address] [place] [address] Dr. Sofia Payne IG # 0.02 10e3/ul Normal 0.00-0.03 [facility] Comment on above: Performed By: #### C BC #### [facility] [address] [place] [address] Dr. Sofia Payne IG % 0.2 % Normal 0.0-0.5 [facility] Comment on above: Performed By: #### C BC #### [facility] [address] [place] [address] Dr. Sofia Payne LYMPH # 1.3 103/ul Normal 1.2-3.8 [facility] Comment on above: Performed By: #### C BC #### [facility] [address] [place] [address] Dr. Sofia Payne Lymphocytes/100 WBC (Bld) 13.8 % Critically low 20.5-60.0 [facility] Comment on above: Performed By: #### C BC #### [facility] [address] [place] [address] Dr. Sofia Payne MANUAL DIFF REQ NO [facility] Comment on above: Performed By: #### C BC #### [facility] [address] [place] [address] Dr. Sofia Payne MCH (RBC) [Entitic mass] 30.3 pg Normal 26.7-34.0 [facility] Comment on above: Performed By: #### C BC #### [facility] [address] [place] [address] Dr. Sofia Payne MCHC (RBC) [Mass/Vol] 34.8 g/dL Normal 29.9-35.2 [facility] Comment on above: Performed By: #### C BC #### [facility] [address] [place] [address] Dr. Sofia Payne MCV (RBC) [Entitic vol] 86.9 fL Normal 81.0-99.0 [facility] Comment on above: Performed By: #### C BC #### [facility] [address] [place] [address] Dr. Sofia Payne MONO # 0.7 103/ul Normal 0.3-0.8 [facility] Comment on above: Performed By: #### C BC #### [facility] [address] [place] [address] Dr. Sofia Payne Monocytes/100 WBC (Bld) 7.8 % Normal 1.7-12.0 [facility] Comment on above: Performed By: #### C BC #### [facility] [address] [place] [address] Dr. Sofia Payne NEUT # 7.2 103/ul Critically high 1.4-6.5 [facility] Comment on above: Performed By: #### C BC #### [facility] [address] [place] [address] Dr. Sofia Payne Neutrophils/100 WBC (Bld) 76.2 % Critically high 43.0-75.0 [facility] Comment on above: Performed By: #### C BC #### [facility] [address] [place] [address] Dr. Sofia Payne Platelet mean volume (Bld) [Entitic vol] 11.3 fL Normal 9.5-13.5 [facility] Comment on above: Performed By: #### C BC #### [facility] [address] [place] [address] Dr. Sofia Payne PLT 166 103/ul Normal 150-450 [facility] Comment on above: Performed By: #### C BC #### [facility] [address] [place] [address] Dr. Sofia Payne RBC 4.82 106/ul Normal 4.20-5.40 [facility] Comment on above: Performed By: #### C BC #### [facility] [address] [place] [address] Dr. Sofia Payne WBC 9.4 103/ul Normal 4.0-11.0 [facility] Comment on above: Performed By: #### C BC #### [facility] [address] [place] [address] Dr. Sofia Payne Covid-19 PCR (CVDTB)on SARS-CoV-2 (COVID-19) RNA AMPARO+probe Ql (Unsp spec) Not detected Normal NOT DETECTED [facility] Comment on above: Result Comment: When [...] for this test is supported by the Carpenter of Health and Human Service's declaration that [...] used). Performed By: #### C VDTBH #### [facility] [address] [place] [address] Dr. Sofia Payne ER URINE PROFILEon 2 Bilirubin Ql (U) SMALL Abnormal NEGATIVE [facility] Comment on above: Performed By: #### C BC #### [facility] [address] [place] [address] Dr. Sofia Payne Clarity (U) CLEAR Normal CLEAR [facility] Comment on above: Performed By: #### C BC #### [facility] [address] [place] [address] Dr. Sofia Payne Color (U) YELLOW Normal YELLOW [facility] Comment on above: Performed By: #### C BC #### [facility] [address] [place] [address] Dr. Sofia Payne ERUD A micrscopic examination will be performed if indicated. Normal [facility] Comment on above: Performed By: #### C BC #### [facility] [address] [address] [address] Sofia Payne Glucose Ql (U) Negative Normal NEGATIVE [facility] Comment on above: Performed By: #### C BC #### [facility] [address] [place] [address] Dr. Sofia Payne Hemoglobin Ql (U) Negative Normal NEGATIVE [facility] Comment on above: Performed By: #### C BC #### [facility] [address] [place] [address] Dr. Sofia Payne Ketones Ql (U) 15 mg/dl Abnormal NEGATIVE [facility] Comment on above: Performed By: #### C BC #### [facility] [address] [place] [address] Dr. Sofia Payne LEUKOCYTES TRACE Abnormal NEGATIVE [facility] Comment on above: Performed By: #### C BC #### [facility] [address] [place] [address] Dr. Sofia Payne Nitrite Ql (U) Negative Normal NEGATIVE [facility] Comment on above: Performed By: #### C BC #### [facility] [address] [place] [address] Dr. Sofia Payne pH (U) 5.5 [pH] Normal 5-9 [facility] Comment on above: Performed By: #### C BC #### [facility] [address] [place] [address] Dr. Sofia Payne SPEC GRAVITY >=1.030 Abnormal 1.005-<=1.025 [facility] Comment on above: Performed By: #### C BC #### [facility] [address] [place] [address] Dr. Sofia Payne UA PROTEIN Negative Normal NEGATIVE/ TRACE [facility] Comment on above: Performed By: #### C BC #### [facility] [address] [place] [address] Dr. Sofia Payne UR MICRO IND INDICATED Normal [facility] Comment on above: Performed By: #### C BC #### [facility] [address] [place] [address] Dr. Sofia Payne Urobilinogen Qn (U) 0.2 {Kristopher'U}/dL Normal 0.2 - 1. 0 [facility] Comment on above: Performed By: #### C BC #### [facility] [address] [place] [address] Dr. Sofia Payne INFLUENZA A AND B AGon 05-01 INFLUANEGH SEE BELOW Normal [facility] Comment on above: Result Comment: Nega tive for Flu A protein angiten. Infection due to Flu A cannot be ruled out. Flu A angiten in the sample may be below the detection limit of the test. Performed By: #### C BC #### [facility] [address] [place] [address] Dr. Sofia Payne INFLUBNEGH SEE BELOW Normal [facility] Comment on above: Result Comment: Nega tive for Flu B protein antigen. Infection due to Flu B cannot be ruled out. Flu B antigen in the sample may be below the detection limit of the test. Performed By: #### C BC #### [facility] [address] [place] [address] Dr. Sofia Payne INFLUENZA A AG Negative Normal NEGATIVE SEE COMMENT [facility] Comment on above: Performed By: #### C BC #### [facility] [address] [place] [address] Dr. Sofia Payne INFLUENZA B AG Negative Normal NEGATIVE SEE COMMENT [facility] Comment on above: Performed By: #### C BC #### [facility] [address] [place] [address] Dr. Sofia Payne INTERNAL CONTROLS Within Normal Limits Normal [place] thin Normal Limits [facility] Comment on above: Performed By: #### C BC #### [facility] [address] [place] [address] Dr. Sofia Payne URon 05-01-2022 , QUAL Negative Normal NEGATIVE [facility] Comment on above: Performed By: #### C BC #### [facility] [address] [place] [address] Dr. Sofia Payne PROF CHEM 8 (BAS METB)on Anion gap [Moles/Vol] 8.7 mmol/L Normal [facility] Comment on above: Performed By: #### C BC #### [facility] [address] [address] [address] Sofia Payne Calcium [Mass/Vol] 8.5 mg/dL Normal 8.5-10.1 The [facility] Comment on above: Performed By: #### C BC #### [facility] [address] [address] [address] Sofia Payne Chloride [Moles/Vol] 103 mmol/L Normal 98-107 [facility] Comment on above: Performed By: #### C BC #### [facility] [address] [place] [address] Dr. Sofia Payne CO2 [Moles/Vol] 27.7 mmol/L Normal 21.0-32.0 [facility] Comment on above: Performed By: #### C BC #### [facility] [address] [place] [address] Dr. Sofia Payne Creatinine [Mass/Vol] 0.80 mg/dL Normal 0.55-1.02 [facility] Comment on above: Performed By: #### C BC #### [facility] [address] [place] [address] Dr. Sofia Payne EGFR-AF HAITIAN >60 Normal >=60 [facility] Comment on above: Performed By: #### C BC #### [facility] [address] [place] [address] Dr. Sofia Payne EGFR-NON AF HAITIAN >60 Normal >=60 [facility] Comment on above: Performed By: #### C BC #### [facility] [address] [address] [address] Sofia Payne Glucose [Mass/Vol] 89 mg/dL Normal 74-106 The [facility] Comment on above: Performed By: #### C BC #### [facility] [address] [place] [address] Dr. Sofia Payne Potassium [Moles/Vol] 3.9 mmol/L Normal 3.5-5.1 [facility] Comment on above: Performed By: #### C BC #### [facility] [address] [place] [address] Dr. Sofia Payne Sodium [Moles/Vol] 136 mmol/L Normal 136-145 [facility] Comment on above: Performed By: #### C BC #### [facility] [address] [place] [address] Dr. Sofia Payne Urea nitrogen [Mass/Vol] 8.0 mg/dL Normal 7.0-18.0 [facility] Comment on above: Performed By: #### C BC #### [facility] [address] [place] [address] Dr. Sofia Payne Urea nitrogen/Creatinine [Mass ratio] 10.0 mg/mg Normal [facility] Comment on above: Performed By: #### C BC #### [facility] [address] [place] [address] Dr. Sofia Payne URINE MICROSCOPIC ONLYon BACTERIA NONE SEEN Normal NONE SEEN [facility] Comment on above: Performed By: #### C BC #### [facility] [address] [place] [address] Dr. Sofia Payne Bacteria identified Cx Nom (U) NOT INDICATED Normal [facility] Comment on above: Performed By: #### C BC #### [facility] [address] [place] [address] Dr. Sofia Payne CAST NONE SEEN Normal NONE SEEN [facility] Comment on above: Performed By: #### C BC #### [facility] [address] [place] [address] Dr. Sofia Payne Crystals LM Nom (Urine sed) NONE SEEN Normal NONE SEEN [facility] Comment on above: Performed By: #### C BC #### [facility] [address] [place] [address] Dr. Sofia Payne Epithelial cells LM Ql (Urine sed) MANY Abnormal NONE SEEN /RARE [facility] Comment on above: Performed By: #### C BC #### [facility] [address] [place] [address] Dr. Sofia Payne MUCOUS TRACE Abnormal NONE SEEN [facility] Comment on above: Performed By: #### C BC #### [facility] [address] [address] [address] Sofia Payne RBC NONE SEEN Abnormal 0-2 [facility] Comment on above: Performed By: #### C BC #### [facility] [address] [address] [address] Sofia Payne WBC 2-5 Abnormal NONE SEEN [facility] Comment on above: Performed By: #### C BC #### [facility] [address] [address] [address] Sofia Payne NEFTALI by IFAon 04-25-2022 Antinuclear Antibodies, IFA Negative Normal [facility] Comment on above: Result Comment: Nega tive <1:80 Borderline 1:80 Positive >1:80 ICAP nomenclature: AC-0 For more information about Hep-2 cell patterns use ANApatterns.org, the official website for the International Consensus on Antinuclear Antibody (NEFTALI) Patterns (ICAP). Performed By: #### C BC #### [facility] [address] [place] [address] Dr. Sofia Payne ANTISTREPTOLYSIN O AB (ASO)o n 04-24-2022 Antistreptolysin O Ab 65.9 IU/mL Normal 0.0-200.0 [facility] Comment on above: Performed By: #### C BC #### [facility] [address] [place] [address] Dr. Sofia Payne RHEUMATOID FACTORon 04-24-20 RA Latex Turbid. <10.0 Normal <14.0 [facility] Comment on above: Performed By: #### C BC #### [facility] [address] [place] [address] Dr. Sofia Payne CBC AUTO DIFFon 04-23-2022 BASO # 0.0 103/ul Normal 0.0-0.1 [facility] Comment on above: Performed By: #### C BC #### [facility] [address] [address] [address] Sofia Payne Basophils/100 WBC (Bld) 0.7 % Normal 0.2-2.0 [facility] Comment on above: Performed By: #### C BC #### [facility] [address] [place] [address] Dr. Sofia Payne EO # 0.1 103/ul Normal 0.0-0.7 [facility] Comment on above: Performed By: #### C BC #### [facility] [address] [place] [address] Dr. Sofia Payne Eosinophils/100 WBC (Bld) 3.3 % Normal 0.9-7.0 [facility] Comment on above: Performed By: #### C BC #### [facility] [address] [place] [address] Dr. Soifa Payne Erythrocyte distribution width (RBC) [Ratio] 12.5 % Normal 11.0-15.0 [facility] Comment on above: Performed By: #### C BC #### [facility] [address] [place] [address] Dr. Sofia Payne Hematocrit (Bld) [Volume fraction] 40.9 % Normal 36.0-48.0 [facility] Comment on above: Performed By: #### C BC #### [facility] [address] [place] [address] Dr. Sofia Payne Hemoglobin (Bld) [Mass/Vol] 14.4 g/dL Normal 12.0-16.0 [facility] Comment on above: Performed By: #### C BC #### [facility] [address] [place] [address] Dr. Sofia Payne IG # 0.01 10e3/ul Normal 0.00-0.03 [facility] Comment on above: Performed By: #### C BC #### [facility] [address] [place] [address] Dr. Sofia Payne IG % 0.2 % Normal 0.0-0.5 [facility] Comment on above: Performed By: #### C BC #### [facility] [address] [place] [address] Dr. Sofia Payne LYMPH # 1.6 103/ul Normal 1.2-3.8 [facility] Comment on above: Performed By: #### C BC #### [facility] [address] [place] [address] Dr. Sofia Payne Lymphocytes/100 WBC (Bld) 36.3 % Normal 20.5-60.0 [facility] Comment on above: Performed By: #### C BC #### [facility] [address] [place] [address] Dr. Sofia Payne MANUAL DIFF REQ NO [facility] Comment on above: Performed By: #### C BC #### [facility] [address] [place] [address] Dr. Sofia Payne MCH (RBC) [Entitic mass] 30.2 pg Normal 26.7-34.0 [facility] Comment on above: Performed By: #### C BC #### [facility] [address] [place] [address] Dr. Sofia Payne MCHC (RBC) [Mass/Vol] 35.2 g/dL Normal 29.9-35.2 [facility] Comment on above: Performed By: #### C BC #### [facility] [address] [place] [address] Dr. Sofia Payne MCV (RBC) [Entitic vol] 85.7 fL Normal 81.0-99.0 [facility] Comment on above: Performed By: #### C BC #### [facility] [address] [place] [address] Dr. Sofia Payne MONO # 0.3 103/ul Normal 0.3-0.8 [facility] Comment on above: Performed By: #### C BC #### [facility] [address] [place] [address] Dr. Sofia Payne Monocytes/100 WBC (Bld) 8.0 % Normal 1.7-12.0 [facility] Comment on above: Performed By: #### C BC #### [facility] [address] [place] [address] Dr. Sofia Payne NEUT # 2.2 103/ul Normal 1.4-6.5 [facility] Comment on above: Performed By: #### C BC #### [facility] [facility] [address] [place] [address] Dr. Sofia Payne Neutrophils/100 WBC (Bld) 51.5 % Normal 43.0-75.0 [facility] Comment on above: Performed By: #### C BC #### [facility] [address] [place] [address] Dr. Sofia Payne Platelet mean volume (Bld) [Entitic vol] 11.5 fL Normal 9.5-13.5 [facility] Comment on above: Performed By: #### C BC #### [facility] [address] [place] [address] Dr. Sofia Payne PLT 121 103/ul Critically low 150-450 [facility] Comment on above: Performed By: #### C BC #### [facility] [address] [place] [address] Dr. Sofia Payne RBC 4.77 106/ul Normal 4.20-5.40 [facility] Comment on above: Performed By: #### C BC #### [facility] [address] [place] [address] Dr. Sofia Payne WBC 4.3 103/ul Normal 4.0-11.0 [facility] Comment on above: Performed By: #### C BC #### [facility] [address] [place] [address] Dr. Sofia Payne CRPon 04-23-2022 CRP [Mass/Vol] mg/L Normal <=1.0 [facility] Comment on above: Performed By: #### C RP, CMP, TSH, URIC #### [facility] [address] [place] [address] Dr. Sofia Payne FREE T4on 04-23-2022 Free T4 [Mass/Vol] 1.01 ng/dL Normal 0.76-1.46 [facility] Comment on above: Performed By: #### F T4 #### [facility] [address] [place] [address] Dr. Sofia Payne PROF 14(COMP METB)on 022 Albumin [Mass/Vol] 3.7 g/dL Normal 3.4-5.0 [facility] Comment on above: Performed By: #### C RP, CMP, TSH, URIC #### [facility] [address] [place] [address] Dr. Sofia Payne Albumin/Globulin [Mass ratio] 1.1 {ratio} Normal [facility] Comment on above: Performed By: #### C RP, CMP, TSH, URIC #### [facility] [address] [place] [address] Dr. Sofia Payne ALP [Catalytic activity/Vol] 94 U/L Normal 46-116 [facility] Comment on above: Performed By: #### C RP, CMP, TSH, URIC #### [facility] [address] [place] [address] Dr. Sofia Payne ALT [Catalytic activity/Vol] 14 U/L Normal 14-59 [facility] Comment on above: Performed By: #### C RP, CMP, TSH, URIC #### [facility] [address] [place] [address] Dr. Sofia Payne Anion gap [Moles/Vol] 13.5 mmol/L Normal [facility] Comment on above: Performed By: #### C RP, CMP, TSH, URIC #### [facility] [address] [place] [address] Dr. Sofia Payne AST [Catalytic activity/Vol] 18 U/L Normal 15-37 [facility] Comment on above: Performed By: #### C RP, CMP, TSH, URIC #### [facility] [address] [place] [address] Dr. Sofia Payne Bilirubin [Mass/Vol] 0.3 mg/dL Normal 0.2-1.0 [facility] Comment on above: Performed By: #### C RP, CMP, TSH, URIC #### [facility] [address] [place] [address] Dr. Sofia Payne Calcium [Mass/Vol] 8.5 mg/dL Normal 8.5-10.1 [facility] Comment on above: Performed By: #### C RP, CMP, TSH, URIC #### [facility] [address] [address] [address] Sofia Payne Chloride [Moles/Vol] 104 mmol/L Normal 98-107 [facility] Comment on above: Performed By: #### C RP, CMP, TSH, URIC #### [facility] [address] [address] [address] Sofia Payne CO2 [Moles/Vol] 23.7 mmol/L Normal 21.0-32.0 [facility] Comment on above: Performed By: #### C RP, CMP, TSH, URIC #### [facility] [address] [address] [address] Sofia Payne Creatinine [Mass/Vol] 0.61 mg/dL Normal 0.55-1.02 [facility] Comment on above: Performed By: #### C RP, CMP, TSH, URIC #### [facility] [address] [place] [address] Dr. Sofia Payne EGFR-AF HAITIAN >60 Normal >=60 [facility] Comment on above: Performed By: #### C RP, CMP, TSH, URIC #### [facility] [address] [place] [address] Dr. Sofia Payne EGFR-NON AF HAITIAN >60 Normal >=60 [facility] Comment on above: Performed By: #### C RP, CMP, TSH, URIC #### [facility] [address] [place] [address] Dr. Sofia Payne Globulin (S) [Mass/Vol] 3.5 g/dL Normal [facility] Comment on above: Performed By: #### C RP, CMP, TSH, URIC #### [facility] [address] [place] [address] Dr. Sofia Payne Glucose [Mass/Vol] 86 mg/dL Normal 74-106 [facility] Comment on above: Performed By: #### C RP, CMP, TSH, URIC #### [facility] [address] [address] [address] Sofia Payne Potassium [Moles/Vol] 4.1 mmol/L Normal 3.5-5.1 [facility] Comment on above: Performed By: #### C RP, CMP, TSH, URIC #### [facility] [address] [address] [address] Sofia Payne Protein [Mass/Vol] 7.2 g/dL Normal 6.4-8.2 [facility] Comment on above: Performed By: #### C RP, CMP, TSH, URIC #### [facility] [address] [address] [address] Sofia Payne Sodium [Moles/Vol] 137 mmol/L Normal 136-145 [facility] Comment on above: Performed By: #### C RP, CMP, TSH, URIC #### [facility] [address] [place] [address] Dr. Sofia Payne Urea nitrogen [Mass/Vol] 6.0 mg/dL Critically low 7.0-18.0 [facility] Comment on above: Performed By: #### C RP, CMP, TSH, URIC #### [facility] [address] [place] [address] Dr. Sofia Payne Urea nitrogen/Creatinine [Mass ratio] 9.8 mg/mg Normal [facility] Comment on above: Performed By: #### C RP, CMP, TSH, URIC #### [facility] [address] [place] [address] Dr. Sof[facility] mm/hr Normal <=20 [facility] Comment on above: Performed By: #### C BC #### [facility] [address] [place] [address] Dr. Sofia Payne TSHon 04-23-2022 TSH 2.555 uIU/mL Normal 0.358-3.740 [facility] Comment on above: Performed By: #### C RP, CMP, TSH, URIC #### [facility] [address] [place] [address] Dr. Sofia Payne URIC ACID SERUMon 04-23-2022 Urate [Mass/Vol] 4.2 mg/dL Normal 2.6-6.0 [facility] Comment on above: Performed By: #### C RP, CMP, TSH, URIC #### [facility] [address] [address] [address] Sofia Payne CBC AUTO DIFFon 12-30-2021 BASO # 0.0 103/ul Normal 0.0-0.1 [facility] Comment on above: Performed By: #### C BC #### [facility] [address] [address] [address] Sofia Payne Basophils/100 WBC (Bld) 0.5 % Normal 0.2-2.0 [facility] Comment on above: Performed By: #### C BC #### [facility] [address] [address] [address] Sofia Payne EO # 0.1 103/ul Normal 0.0-0.7 [facility] Comment on above: Performed By: #### C BC #### [facility] [address] [place] [address] Dr. Sofia Payne Eosinophils/100 WBC (Bld) 3.1 % Normal 0.9-7.0 [facility] Comment on above: Performed By: #### C BC #### [facility] [address] [address] [address] Sofia Payne Erythrocyte distribution width (RBC) [Ratio] 13.1 % Normal 11.0-15.0 [facility] Comment on above: Performed By: #### C BC #### [facility] [address] [place] [address] Dr. Sofia Payne Hematocrit (Bld) [Volume fraction] 43.4 % Normal 36.0-48.0 [facility] Comment on above: Performed By: #### C BC #### [facility] [address] [address] [address] Sofia Payne Hemoglobin (Bld) [Mass/Vol] 14.8 g/dL Normal 12.0-16.0 [facility] Comment on above: Performed By: #### C BC #### [facility] [address] [address] [address] Sofia Payne IG # 0.01 10e3/ul Normal 0.00-0.03 [facility] Comment on above: Performed By: #### C BC #### [facility] [address] [place] [address] Dr. Sofia Payne IG % 0.3 % Normal 0.0-0.5 [facility] Comment on above: Performed By: #### C BC #### [facility] [address] [place] [address] Dr. Sofia Payne LYMPH # 1.6 103/ul Normal 1.2-3.8 [facility] Comment on above: Performed By: #### C BC #### [facility] [address] [place] [address] Dr. Sofia Payne Lymphocytes/100 WBC (Bld) 41.2 % Normal 20.5-60.0 [facility] Comment on above: Performed By: #### C BC #### [facility] [address] [place] [address] Dr. Sofia Payne MANUAL DIFF REQ NO [facility] Comment on above: Performed By: #### C BC #### [facility] [address] [place] [address] Dr. Sofia Payne MCH (RBC) [Entitic mass] 30.0 pg Normal 26.7-34.0 [facility] Comment on above: Performed By: #### C BC #### [facility] [address] [place] [address] Dr. Sofia Payne MCHC (RBC) [Mass/Vol] 34.1 g/dL Normal 29.9-35.2 [facility] Comment on above: Performed By: #### C BC #### [facility] [address] [place] [address] Dr. Sofia Payne MCV (RBC) [Entitic vol] 88.0 fL Normal 81.0-99.0 [facility] Comment on above: Performed By: #### C BC #### [facility] [address] [place] [address] Dr. Sofia Payne MONO # 0.4 103/ul Normal 0.3-0.8 [facility] Comment on above: Performed By: #### C BC #### [facility] [address] [place] [address] Dr. Sofia Payne Monocytes/100 WBC (Bld) 9.8 % Normal 1.7-12.0 [facility] Comment on above: Performed By: #### C BC #### [facility] [address] [place] [address] Dr. Sofia Payne NEUT # 1.8 103/ul Normal 1.4-6.5 [facility] Comment on above: Performed By: #### C BC #### [facility] [address] [place] [address] Dr. Sofia Payne Neutrophils/100 WBC (Bld) 45.1 % Normal 43.0-75.0 [facility] Comment on above: Performed By: #### C BC #### [facility] [address] [place] [address] Dr. Sofia Payne Platelet mean volume (Bld) [Entitic vol] 11.9 fL Normal 9.5-13.5 [facility] Comment on above: Performed By: #### C BC #### [facility] [address] [place] [address] Dr. Sofia Payne PLT 142 103/ul Critically low 150-[address] [facility] Comment on above: Performed By: #### C BC #### [facility] [address] [place] [address] Dr. Sofia Payne RBC 4.93 106/ul Normal 4.20-5.40 [facility] Comment on above: Performed By: #### C BC #### [facility] [address] [place] [address] Dr. Sofia Payne WBC 3.9 103/ul Critically low 4.0-11.[address] [facility] Comment on above: Performed By: #### C BC #### [facility] [address] [place] [address] Dr. Sofia Payne CULTURE URINEon 12-30-2021 CULTURE URINE Culture Observations : HEAVY GROWTH OF MIXED GENITAL SHARAN. NO POTENTIAL PATHOGENS SEEN. Normal [facility] Comment on above: Performed By: #### C BC #### [facility] [address] [place] [address] Dr. Sofia Payne FREE T4on 12-30-2021 Free T4 [Mass/Vol] 0.98 ng/dL Normal 0.76-1.46 [facility] Comment on above: Performed By: #### C BC #### [facility] [address] [place] [address] Dr. Sofia Payne MONOon 12-30-2021 Monocytes (Bld) [#/Vol] Positive Abnormal NEGATIVE [facility] Comment on above: Result Comment: Prev iously reported as: NEGATIVE On 12/30/2021 19:06 By JAW Performed By: #### M CHERYL #### [facility] [address] [place] [address] Dr. Sofia Payne PROF 14(COMP METB)on 022 Albumin [Mass/Vol] 4.1 g/dL Normal 3.4-5.0 [facility] Comment on above: Performed By: #### C BC #### [facility] [address] [place] [address] Dr. Sofia Payne Albumin/Globulin [Mass ratio] 1.2 {ratio} Normal [facility] Comment on above: Performed By: #### C BC #### [facility] [address] [place] [address] Dr. Sofia Payne ALP [Catalytic activity/Vol] 103 U/L Normal 46-116 [facility] Comment on above: Performed By: #### C BC #### [facility] [address] [place] [address] Dr. Sofia Payne ALT [Catalytic activity/Vol] 88 U/L Critically high 14-59 [facility] Comment on above: Performed By: #### C BC #### [facility] [address] [place] [address] Dr. Sofia Payne Anion gap [Moles/Vol] 14.0 mmol/L Normal [facility] Comment on above: Performed By: #### C BC #### [facility] [address] [place] [address] Dr. Sofia Payne AST [Catalytic activity/Vol] 24 U/L Normal 15-37 [facility] Comment on above: Performed By: #### C BC #### [facility] [address] [place] [address] Dr. Sofia Payne Bilirubin [Mass/Vol] 0.3 mg/dL Normal 0.2-1.0 [facility] Comment on above: Performed By: #### C BC #### [facility] [address] [place] [address] Dr. Sofia Payne Calcium [Mass/Vol] 9.2 mg/dL Normal 8.5-10.1 [facility] Comment on above: Performed By: #### C BC #### [facility] [address] [place] [address] Dr. Sofia Payne Chloride [Moles/Vol] 105 mmol/L Normal 98-107 [facility] Comment on above: Performed By: #### C BC #### [facility] [address] [place] [address] Dr. Sofia Payne CO2 [Moles/Vol] 25.4 mmol/L Normal 21.0-32.0 [facility] Comment on above: Performed By: #### C BC #### [facility] [address] [place] [address] Dr. Sofia Payne Creatinine [Mass/Vol] 0.74 mg/dL Normal 0.55-1.02 [facility] Comment on above: Performed By: #### C BC #### [facility] [address] [place] [address] Dr. Sofia Payne EGFR-AF HAITIAN >60 Normal >=60 [facility] Comment on above: Performed By: #### C BC #### [facility] [address] [place] [address] Dr. Sofia Payne EGFR-NON AF HAITIAN >60 Normal >=60 [facility] Comment on above: Performed By: #### C BC #### [facility] [address] [place] [address] Dr. Sofia Payne Globulin (S) [Mass/Vol] 3.3 g/dL Normal [facility] Comment on above: Performed By: #### C BC #### [facility] [address] [address] [address] Sofia Payne Glucose [Mass/Vol] 96 mg/dL Normal 74-106 [facility] Comment on above: Performed By: #### C BC #### [facility] [address] [address] [address] Sofia Payne Potassium [Moles/Vol] 4.4 mmol/L Normal 3.5-5.1 [facility] Comment on above: Performed By: #### C BC #### [facility] [address] [address] [address] Sofia Payne Protein [Mass/Vol] 7.4 g/dL Normal 6.4-8.2 [facility] Comment on above: Performed By: #### C BC #### [facility] [address] [place] [address] Dr. Sofia Payne Sodium [Moles/Vol] 140 mmol/L Normal 136-145 [facility] Comment on above: Performed By: #### C BC #### [facility] [address] [address] [address] Sofia Payne Urea nitrogen [Mass/Vol] 10.0 mg/dL Normal 7.0-18.0 [facility] Comment on above: Performed By: #### C BC #### [facility] [address] [address] [address] Sofia Payne Urea nitrogen/Creatinine [Mass ratio] 13.5 mg/mg Normal [facility] Comment on above: Performed By: #### C BC #### [facility] [address] [address] [address] Sofia Payne TSHon 12-30-2021 TSH 1.676 uIU/mL Normal 0.358-3.740 [facility] Comment on above: Performed By: #### C BC #### [facility] [address] [address] [address] Sofia Payne UA RANDOM W/MICROSCOPICon AMORPHOUS CRYSTALS FEW Normal [facility] Comment on above: Performed By: #### C BC #### [facility] [address] [place] [address] Dr. Sofia Payne BACTERIA MODERATE Abnormal NONE SEEN [facility] Comment on above: Performed By: #### C BC #### [facility] [address] [place] [address] Dr. Sofia Payne Bilirubin Ql (U) Negative Normal NEGATIVE [facility] Comment on above: Performed By: #### C BC #### [facility] [address] [place] [address] Dr. Sofia Payne CAST NONE SEEN Normal NONE SEEN [facility] Comment on above: Performed By: #### C BC #### [facility] [address] [place] [address] Dr. Sofia Payne Clarity (U) SL CLOUDY Abnormal CLEAR [facility] Comment on above: Performed By: #### C BC #### [facility] [address] [place] [address] Dr. Sofia Payne Color (U) YELLOW Normal YELLOW [facility] Comment on above: Performed By: #### C BC #### [facility] [address] [place] [address] Dr. Sofia Payne Crystals LM Nom (Urine sed) SEEN Abnormal NONE SEEN [facility] Comment on above: Performed By: #### C BC #### [facility] [address] [place] [address] Dr. Sofia Payne Epithelial cells LM Ql (Urine sed) FEW Abnormal NONE SEEN /RARE [facility] Comment on above: Performed By: #### C BC #### [facility] [address] [place] [address] Dr. Sofia Payne Glucose Ql (U) Negative Normal NEGATIVE [facility] Comment on above: Performed By: #### C BC #### [facility] [address] [place] [address] Dr. Sofia Payne Hemoglobin Ql (U) MODERATE Abnormal NEGATIVE [facility] Comment on above: Performed By: #### C BC #### [facility] [address] [place] [address] Dr. Sofia Payne Ketones Ql (U) Negative Normal NEGATIVE [facility] Comment on above: Performed By: #### C BC #### [facility] [address] [place] [address] Dr. Sofia Payne LEUKOCYTES SMALL Abnormal NEGATIVE [facility] Comment on above: Performed By: #### C BC #### [facility] [address] [place] [address] Dr. Sofia Payne MUCOUS NONE SEEN Normal NONE SEEN [facility] Comment on above: Performed By: #### C BC #### [facility] [address] [place] [address] Dr. Sofia Payne Nitrite Ql (U) Negative Normal NEGATIVE [facility] Comment on above: Performed By: #### C BC #### [facility] [address] [place] [address] Dr. Sofia Payne pH (U) 6.0 [pH] Normal 5-9 [facility] Comment on above: Performed By: #### C BC #### [facility] [address] [place] [address] Dr. Sofia Payne RBC 10-20 Abnormal 0-2 [facility] Comment on above: Performed By: #### C BC #### [facility] [address] [place] [address] Dr. Sofia Payne SPEC GRAVITY >=1.030 Abnormal 1.005-<=1.025 [facility] Comment on above: Performed By: #### C BC #### [facility] [address] [place] [address] Dr. Sofia Payne UA PROTEIN Negative Normal NEGATIVE/ TRACE [facility] Comment on above: Performed By: #### C BC #### [facility] [address] [place] [address] Dr. Sofia Payne Urobilinogen Qn (U) 0.2 {Kristopher'U}/dL Normal 0.2 - 1. 0 [facility] Comment on above: Performed By: #### C BC #### [facility] [address] [place] [address] Dr. Sofia Payne WBC 5-10 Abnormal NONE SEEN [facility] Comment on above: Performed By: #### C BC #### [facility] [address] [place] [address] Dr. Sofia Payne CBC W MANUAL DIFFon 12-25-19 22 ATYPICAL LYMPH # Normal [facility] Comment on above: Performed By: #### C BC #### [facility] [address] [place] [address] Dr. Sofia Payne ATYPICAL LYMPH % Normal [facility] Comment on above: Performed By: #### C BC #### [facility] [address] [place] [address] Dr. Sofia Payne BAND # 0.1 103/ul Normal 0.0-0.3 [facility] Comment on above: Performed By: #### C BC #### [facility] [address] [place] [address] Dr. Sofia Payne BAND % 2 % Normal 0-5 [facility] Comment on above: Performed By: #### C BC #### [facility] [address] [place] [address] Dr. Sofia Payne BASOM # 0.00 103/ul Normal 0.00-0.10 [facility] Comment on above: Performed By: #### C BC #### [facility] [address] [place] [address] Dr. Sofia Payne BASOM % 0.0 % Critically low 0.2-2.0 [facility] Comment on above: Performed By: #### C BC #### [facility] [address] [place] [address] Dr. Sofia Payne BLAST # Normal [facility] Comment on above: Performed By: #### C BC #### [facility] [address] [place] [address] Dr. Sofia Payne BLAST % Normal [facility] Comment on above: Performed By: #### C BC #### [facility] [address] [place] [address] Dr. Sofia Payne CORRECTED WBC Normal 4.0-11.0 [facility] Comment on above: Performed By: #### C BC #### [facility] [address] [place] [address] Dr. Sofia Payne EOS # 0.00 103/ul Normal 0.00-0.70 [facility] Comment on above: Performed By: #### C BC #### [facility] [address] [place] [address] Dr. Sofia Payne EOS% 0.0 % Critically low 0.9-7.0 [facility] Comment on above: Performed By: #### C BC #### [facility] [address] [address] [address] Sofia Payne HCT 40.9 % Normal 36.0-48.0 [facility] Comment on above: Performed By: #### C BC #### [facility] [address] [place] [address] Dr. Sofia Payne HGB 13.8 g/dl Normal 12.0-16.0 [facility] Comment on above: Performed By: #### C BC #### [facility] [address] [place] [address] Dr. Sofia Payne LYMPHM # 0.43 103/ul Critically low 1.20-3.80 [facility] Comment on above: Performed By: #### C BC #### [facility] [address] [place] [address] Dr. Sofia Payne LYMPHM% 15.0 % Critically low 20.5-60.0 [facility] Comment on above: Performed By: #### C BC #### [facility] [address] [place] [address] Dr. Sofia Payne MCH 30.4 pg Normal 26.7-34.0 [facility] Comment on above: Performed By: #### C BC #### [facility] [address] [place] [address] Dr. Sofia Payne MCHC 33.7 g/dl Normal 29.9-35.2 The [facility] Comment on above: Performed By: #### C BC #### [facility] [address] [place] [address] Dr. Sofia Payne MCV 90.1 fL Normal 81.0-99.0 [facility] Comment on above: Performed By: #### C BC #### [facility] [address] [address] [address] Sofia Payne METAMYELOCYTE # [facility] Comment on above: Performed By: #### C BC #### [facility] [address] [address] [address] Sofia Payne METAMYELOCYTE % [facility] Comment on above: Performed By: #### C BC #### [facility] [address] [address] [address] Sofia Payne MONOM# 0.41 103/ul Normal 0.30-0.80 [facility] Comment on above: Performed By: #### C BC #### [facility] [address] [place] [address] Dr. Sofia Payne MONOM% 14.0 % Critically high 1.7-12.0 [facility] Comment on above: Performed By: #### C BC #### [facility] [address] [place] [address] Dr. Sofia Payne MPV 11.0 fL Normal 9.5-13.5 [facility] Comment on above: Performed By: #### C BC #### [facility] [address] [place] [address] Dr. Sofia Payne MYELOCYTE # Normal [facility] Comment on above: Performed By: #### C BC #### [facility] [address] [place] [address] Dr. Sofia Payne MYELOCYTE % Normal [facility] Comment on above: Performed By: #### C BC #### [facility] [address] [place] [address] Dr. Sofia Payne NRBC Normal [facility] Comment on above: Performed By: #### C BC #### [facility] [address] [place] [address] Dr. Sofia Payne PLT 98 103/ul Critically low 150-450 [facility] Comment on above: Performed By: #### C BC #### [facility] [address] [place] [address] Dr. Sofia Payne RBC 4.54 106/ul Normal 4.20-5.40 [facility] Comment on above: Performed By: #### C BC #### [facility] [address] [place] [address] Dr. Sofia Payne RDW 13.1 % Normal 11.0-15.0 [facility] Comment on above: Performed By: #### C BC #### [facility] [address] [place] [address] Dr. Sofia Payne SEG # 2.00 103/ul Normal 1.40-6.50 [facility] Comment on above: Performed By: #### C BC #### [facility] [address] [place] [address] Dr. Sofia Payne SEG % 69.0 % Normal 43.0-75.0 [facility] Comment on above: Performed By: #### C BC #### [facility] [address] [place] [address] Dr. Sofia Payne WBC 2.9 103/ul Critically low 4.0-11.0 [facility] Comment on above: Performed By: #### C BC #### [facility] [address] [place] [address] ABD/PELVIS WO CONon [...] VIKAS ROMAN Date: 2021-12-24 12:09 Normal [facility] CULTURE URINEon 12-24-2021 CULTURE URINE Culture Observations : NO GROWTH. Normal [facility] Comment on above: Performed By: #### C BC #### [facility] [address] [place] [address] Dr. Sofia Payne ER URINE PROFILEon 2 Bilirubin Ql (U) SMALL Abnormal NEGATIVE [facility] [place] [facility] Comment on above: Performed By: #### C BC #### [facility] [address] [place] [address] Dr. Sofia Payne Clarity (U) SL CLOUDY Abnormal CLEAR [facility] Comment on above: Performed By: #### C BC #### [facility] [address] [place] [address] Dr. Sofia Payne Color (U) DK. ORANGE Abnormal YELLOW [facility] Comment on above: Performed By: #### C BC #### [facility] [address] [place] [address] Dr. Sofia Payne ERUKeyanna A micrscopic examination will be performed if indicated. Normal [facility] Comment on above: Performed By: #### C BC #### [facility] [address] [place] [address] Dr. Sofia Payne Glucose Ql (U) Negative Normal NEGATIVE The [facility] Comment on above: Performed By: #### C BC #### [facility] [address] [place] [address] Dr. Sofia Payne Hemoglobin Ql (U) LARGE Abnormal NEGATIVE The [facility] Comment on above: Performed By: #### C BC #### [facility] [address] [place] [address] Dr. Sofia Payne Ketones Ql (U) 40 mg/dl Abnormal NEGATIVE [facility] Comment on above: Performed By: #### C BC #### [facility] [address] [place] [address] Dr. Sofia Payne LEUKOCYTES Negative Normal NEGATIVE [facility] Comment on above: Performed By: #### C BC #### [facility] [address] [place] [address] Dr. Sofia Payne Nitrite Ql (U) Negative Normal NEGATIVE [facility] Comment on above: Performed By: #### C BC #### [facility] [address] [place] [address] Dr. Sofia Payne pH (U) 5.5 [pH] Normal 5-9 [facility] Comment on above: Performed By: #### C BC #### [facility] [address] [place] [address] Dr. Sofia Payne Protein (U) [Mass/Vol] 100 mg/dL Abnormal NEGATIVE/ TRACE [facility] Comment on above: Performed By: #### C BC #### [facility] [address] [place] [address] Dr. Sofia Payne SPEC GRAVITY >=1.030 Abnormal 1.005-<=1.025 [facility] Comment on above: Performed By: #### C BC #### [facility] [address] [place] [address] Dr. Sofia Payne UR MICRO IND INDICATED Normal [facility] Comment on above: Performed By: #### C BC #### [facility] [address] [place] [address] Dr. Sofia Payne Urobilinogen Qn (U) 1.0 {Kristopher'U}/dL Normal 0.2 - 1. 0 [facility] Comment on above: Performed By: #### C BC #### [facility] [address] [place] [address] Dr. Sofia Payne PROF 14(COMP METB)on 022 Albumin [Mass/Vol] 3.8 g/dL Normal 3.4-5.0 [facility] Comment on above: Performed By: #### C BC #### [facility] [address] [place] [address] Dr. Sofia Payne Albumin/Globulin [Mass ratio] 1.2 {ratio} Normal [facility] Comment on above: Performed By: #### C BC #### [facility] [address] [place] [address] Dr. Sofia Payne ALP [Catalytic activity/Vol] 78 U/L Normal 46-116 [facility] Comment on above: Performed By: #### C BC #### [facility] [address] [place] [address] Dr. Sofia Payne ALT [Catalytic activity/Vol] 9 U/L Critically low 14-59 [facility] Comment on above: Performed By: #### C BC #### [facility] [address] [place] [address] Dr. Sofia Payne Anion gap [Moles/Vol] 13.4 mmol/L Normal [facility] Comment on above: Performed By: #### C BC #### [facility] [address] [place] [address] Dr. Sofia Payne AST [Catalytic activity/Vol] 13 U/L Critically low 15-37 [facility] Comment on above: Performed By: #### C BC #### [facility] [address] [place] [address] Dr. Sofia Payne Bilirubin [Mass/Vol] 0.2 mg/dL Normal 0.2-1.0 [facility] Comment on above: Performed By: #### C BC #### [facility] [address] [place] [address] Dr. Sofia Payne Calcium [Mass/Vol] 8.2 mg/dL Critically low 8.5-10.1 [facility] e [facility] Comment on above: Performed By: #### C BC #### [facility] [address] [place] [address] Dr. Sofia Payne Chloride [Moles/Vol] 106 mmol/L Normal 98-107 [facility] Comment on above: Performed By: #### C BC #### [facility] [address] [place] [address] Dr. Sofia Payne CO2 [Moles/Vol] 24.9 mmol/L Normal 21.0-32.0 [facility] [place] [facility] Comment on above: Performed By: #### C BC #### [facility] [address] [place] [address] Dr. Sofia Payne Creatinine [Mass/Vol] 0.93 mg/dL Normal 0.55-1.02 [facility] Comment on above: Performed By: #### C BC #### [facility] [address] [address] [address] Sofia Payne EGFR-AF HAITIAN >60 Normal >=60 [facility] [place] [facility] Comment on above: Performed By: #### C BC #### [facility] [address] [place] [address] Dr. Sofia Payne EGFR-NON AF HAITIAN >60 Normal >=60 [facility] Comment on above: Performed By: #### C BC #### [facility] [address] [place] [address] Dr. Sofia Payne Globulin (S) [Mass/Vol] 3.3 g/dL Normal [facility] Comment on above: Performed By: #### C BC #### [facility] [address] [place] [address] Dr. Sofia Payne Glucose [Mass/Vol] 94 mg/dL Normal 74-106 The [facility] Comment on above: Performed By: #### C BC #### [facility] [address] [place] [address] Dr. Sofia Payne Potassium [Moles/Vol] 4.3 mmol/L Normal 3.5-5.1 [facility] Comment on above: Performed By: #### C BC #### [facility] [address] [place] [address] Dr. Sofia Payne Protein [Mass/Vol] 7.1 g/dL Normal 6.4-8.2 The [facility] Comment on above: Performed By: #### C BC #### [facility] [address] [place] [address] Dr. Sofia Payne Sodium [Moles/Vol] 140 mmol/L Normal 136-145 The [facility] Comment on above: Performed By: #### C BC #### [facility] [address] [address] [address] Sofia Payne Urea nitrogen [Mass/Vol] 7.0 mg/dL Normal 7.0-18.0 [facility] Comment on above: Performed By: #### C BC #### [facility] [address] [place] [address] Dr. Sofia Payne Urea nitrogen/Creatinine [Mass ratio] 7.5 mg/mg Normal [facility] Comment on above: Performed By: #### C BC #### [facility] [address] [place] [address] Dr. Sofia Payne URINE MICROSCOPIC ONLYon BACTERIA SMALL Abnormal NONE SEEN [facility] Comment on above: Performed By: #### C BC #### [facility] [address] [place] [address] Dr. Sofia Payne Bacteria identified Cx Nom (U) INDICATED Normal [facility] Comment on above: Performed By: #### C BC #### [facility] [address] [place] [address] Dr. Sofia Payne CAST NONE SEEN Normal NONE SEEN [facility] Comment on above: Performed By: #### C BC #### [facility] [address] [place] [address] Dr. Sofia Payne Crystals LM Nom (Urine sed) NONE SEEN Normal NONE SEEN [facility] Comment on above: Performed By: #### C BC #### [facility] [address] [place] [address] Dr. Sofia Payne Epithelial cells LM Ql (Urine sed) FEW Abnormal NONE SEEN /RARE [facility] Comment on above: Performed By: #### C BC #### [facility] [address] [place] [address] Dr. Sofia Payne MUCOUS NONE SEEN Normal NONE SEEN [facility] Comment on above: Performed By: #### C BC #### [facility] [address] [place] [address] Dr. Sofia Payne RBC (U) [#/Vol] /uL Abnormal 0-2 The [facility] Comment on above: Performed By: #### C BC #### [facility] [address], [place] [address] Dr. Sofia Payne WBC 2-5 Abnormal NONE SEEN [facility] Comment on above: Performed By: #### C BC #### [facility] [address], [place] [address] Dr. Sofia Payne Covid-19 PCR ([facility])on SARS-CoV-2 (COVID-19) RNA AMPARO+probe Ql (Unsp spec) Not detected Normal NOT DETECTED [facility] Comment on above: Result Comment: This test is not yet approved or cleared by the [place] FDA. When there are no FDA-approved or cleared tests available, and other criteria are met, FDA can make tests available under an emergency access mechanism called an Emergency Use Authorization (EUA). The EUA for this test is supported by the [place] of Health and Human Service's (HHS's) declaration [...] SARS-CoV-2. Performed By: #### C BC #### [facility] [address], [place] [address] Dr. Sofia Payne COVID/FLU/RSV RT-PCRon 12-22 SARS-CoV-2 (COVID-19) RNA AMPARO+probe Ql (Unsp spec) Negative [facility] Other COVID/FLU/RSV RT-PCR Negative [employer] Other COVID/FLU/RSV RT-PCR [employer] Other Mononucleosis Test, [facility] 0 12-22-2021 Heterophile Ab LA Ql (S) Negative [facility] Other COVID Quick Testingon 2021 Result Negative [facility] Other Quick Strepon 06-04-2021 S. pyogenes Org specific cx Ql (Throat) Negative [facility] Other Quick Strep [facility] Other RAD - Ultrasound Reporton RAD - Ultrasound Report [id number] .00CD:127 Normal [facility] ED Note-Physicianon 02-22-20 20 ED Note-Physician [id number]# 1.00CD:127 [facility] ED Note-Physician [id number]# 1.00CD:127 [facility] ED Note-Physician [id number]# 1.00CD:127 [facility] Physician Referralon 020 Physician Referral [id number]. 00CD:127 Normal [facility] Provider Letteron 02-15-2020 Provider Letter February 15, 2020 LINA ALCANTAR [address] [place] [address] LINA ALCANTAR 1990 Dear Lina Alcantar, You [...] [facility] [address], [place] [address] [facility] Formson 02-03-2020 Forms [id number] .00CD:127 Normal [facility] Ambulatory Clinical Summaryo n 02-01-2020 Ambulatory Clinical Summary {[id number]}CD:[id number] Normal [facility] Patient Educationon 02-01-20 20 Patient Education Family [...] Document Reviewed: 06/18/2012 ExitCare? Patient Information ?2013 SeeWhy. 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 Bhagat. Pt states that since having her son 5 months ago and she has had 4. Last UTI was 01/14/20 and was at [facility]. This has been ongoing since she [...] of Present Illness Reviewed UA, PVR, and [employer] paperwork. There have been no associated fever [...] (N39.0: Urinary tract infection, site not specified) [employer] referred by Dr. Bhagat for recurrent UTIs. [...] Bactrim 400mg/80mg qd [facility] to [facility]. All questions/concerns were discussed. Pt. to [...] Christo LUDWIG, Torres Warner [address] [place] [address]- [phone] Additional Instructions: Patient Education Urinary Tract Infection [...] Protein Urine Dipstick: Negative (02/01/20 09:13:00) Specific [place] Urine Dipstick: 1.025 (02/01/20 09:13:00) Urine Color Urine Dipstick: Yellow (02/01/20 09:13:00) Urobilinogen Urine Dipstick: Normal 0.2-1 EU/dl (02/01/20 09:13:00) pH Urine Dipstick: 5.5 (02/01/20 09:13:00) Normal [facility] Comment on above: Result Comment: Elec tronically Signed By: Christo LUDWIG, Torres Warner\.br\Date and Time Signed: 02/01/20 09:52 EDT\.br\Electronically Co-Signed By: Dolly Duffy MA\.br\Date and Time Co-Signed: 02/01/20 09:29 EDT Vital Signs Date Time Vital Sign Value Performing Clinician Facility 05-31-2024 21:28-0500 Body temperature 97.81 [degF] Rosalie Foster MD Work Phone: [facility] 05-31-2024 21:28-0500 Diastolic blood pressure 87 mm[Hg] Rosalie Foster MD Work Phone: [employer] 05-31-2024 21:28-0500 Heart rate 97 /min Rosalie Foster MD Work Phone: [employer] 05-31-2024 21:28-0500 Respiratory rate 16 /min Rosalie Foster MD Work Phone: [facility] [employer] 05-31-2024 21:28-0500 SaO2% (BldA) [Mass fraction] 100 % Rosalie Foster MD Work Phone: [facility] [employer] 05-31-2024 21:28-0500 Systolic blood pressure 104 mm[Hg] Rosalie Foster MD Work Phone: [facility] [employer] 05-23-2024 09:44-0500 Body mass index (BMI) [Ratio] 36.14 kg/m2 Jefry Lorelei-Nossek REFERENCE TEST CLERK-CIRCLE SAW OPERATOR Work Phone: [facility] 05-23-2024 09:44-0500 Body weight 92.53 kg Jefry Loreeli-Nossek REFERENCE TEST CLERK-CIRCLE SAW OPERATOR Work Phone: [facility] 05-23-2024 09:44-0500 Diastolic blood pressure 82 mm[Hg] Jefry Lorelei-Nossek REFERENCE TEST CLERK-CIRCLE SAW OPERATOR Work Phone: [facility] 05-23-2024 09:44-0500 Heart rate 90 /min Jefry Lorelei-Nossek REFERENCE TEST CLERK-CIRCLE SAW OPERATOR Work Phone: [facility] 05-23-2024 09:44-0500 Systolic blood pressure 118 mm[Hg] Jefry Lorelei-Nossek REFERENCE TEST CLERK-CIRCLE SAW OPERATOR Work Phone: [facility] 05-02-2024 09:44-0500 Body mass index (BMI) [Ratio] 36.31 kg/m2 Jefry Lorelei-Nossek REFERENCE TEST CLERK-CIRCLE SAW OPERATOR Work Phone: [facility] 05-02-2024 09:44-0500 Body weight 92.99 kg Jefry Lorelei-Nossek REFERENCE TEST CLERK-CIRCLE SAW OPERATOR Work Phone: [facility] 05-02-2024 09:44-0500 Diastolic blood pressure 74 mm[Hg] Jefry Lorelei-Nossek REFERENCE TEST CLERK-CIRCLE SAW OPERATOR Work Phone: [facility] 05-02-2024 09:44-0500 Heart rate 82 /min Jefry Lorelei-Nossek REFERENCE TEST CLERK-CIRCLE SAW OPERATOR Work Phone: [facility] 05-02-2024 09:44-0500 Systolic blood pressure 122 mm[Hg] Jefry Lroelei-Nossek REFERENCE TEST CLERK-CIRCLE SAW OPERATOR Work Phone: [facility] 04-28-2024 11:35-0500 Body height 160 cm Rosario Francine PLATE FITTER Work Phone: [facility] 04-28-2024 11:35-0500 Body mass index (BMI) [Ratio] 35.71 kg/m2 Rosario Bettyz PLATE FITTER Work Phone: [facility] 04-28-2024 11:35-0500 Body temperature 98.71 [degF] Rosario Bettyz PLATE FITTER Work Phone: [facility] 04-28-2024 11:35-0500 Body weight 91.44 kg Rosario Bettyz PLATE FITTER Work Phone: [facility] 04-28-2024 11:35-0500 Diastolic blood pressure 78 mm[Hg] Rosario Davidhholz PLATE FITTER Work Phone: [facility] 04-28-2024 11:35-0500 Heart rate 93 /min Rosario Ingridholz PLATE FITTER Work Phone: [facility] 04-28-2024 11:35-0500 Respiratory rate 19 /min Rosario Davidhholz PLATE FITTER Work Phone: [facility] 04-28-2024 11:35-0500 SaO2% (BldA) [Mass fraction] 100 % Rosarioderek Hernandezsally PLATE FITTER Work Phone: [facility] 04-28-2024 11:35-0500 Systolic blood pressure 118 mm[Hg] Rosario Hernandezsally PLATE FITTER Work Phone: [facility] 04-22-2024 14:15-0500 Body temperature 97.9 [degF] [facility] 04-22-2024 14:15-0500 Diastolic blood pressure 71 mm[Hg] [facility] 04-22-2024 14:15-0500 Heart rate 86 /min [facility] 04-22-2024 14:15-0500 Respiratory rate 22 /min [facility] 04-22-2024 14:15-0500 SaO2% (BldA) [Mass fraction] 100 % [facility] 04-22-2024 14:15-0500 Systolic blood pressure 107 mm[Hg] [facility] 04-13-2024 10:59-0500 Body height 160 cm Rosario Francine PLATE FITTER Work Phone: [facility] 04-13-2024 10:59-0500 Body mass index (BMI) [Ratio] 37.41 kg/m2 Rosario Francine PLATE FITTER Work Phone: [facility] 04-13-2024 10:59-0500 Body temperature 97.81 [degF] Rosario Francine PLATE FITTER Work Phone: [facility] 04-13-2024 10:59-0500 Body weight 95.8 kg Rosario Francine PLATE FITTER Work Phone: [facility] 04-13-2024 10:59-0500 Diastolic blood pressure 78 mm[Hg] Rosario Francine PLATE FITTER Work Phone: [facility] 04-13-2024 10:59-0500 Heart rate 86 /min Rosario Francine PLATE FITTER Work Phone: [facility] 04-13-2024 10:59-0500 Respiratory rate 19 /min Rosario Francine PLATE FITTER Work Phone: [facility] 04-13-2024 10:59-0500 SaO2% (BldA) [Mass fraction] 100 % Rosario Francine PLATE FITTER Work Phone: [facility] 04-13-2024 10:59-0500 Systolic blood pressure 110 mm[Hg] Rosario Francine PLATE FITTER Work Phone: [facility] 04-12-2024 09:51-0500 Body mass index (BMI) [Ratio] 36.87 kg/m2 Vonda Cage PA Work Phone: [facility] 04-12-2024 09:51-0500 Body weight 94.4 kg Vonda Cage PA Work Phone: [facility] 04-12-2024 09:51-0500 Diastolic blood pressure 72 mm[Hg] Vonda Cage PA Work Phone: [facility] 04-12-2024 09:51-0500 Systolic blood pressure 112 mm[Hg] Vonda Cage PA Work Phone: [facility] 03-02-2024 09:29-0400 Body height 160 cm Rosario Escamilla PLATE FITTER Work Phone: [facility] 03-02-2024 09:29-0400 Body mass index (BMI) [Ratio] 35.92 kg/m2 Rosario Francine PLATE FITTER Work Phone: [facility] 03-02-2024 09:29-0400 Body temperature 98.49 [degF] Rosario Francine PLATE FITTER Work Phone: [facility] 03-02-2024 09:29-0400 Body weight 91.99 kg Rosario Francine PLATE FITTER Work Phone: [facility] 03-02-2024 09:29-0400 Diastolic blood pressure 80 mm[Hg] Rosario Francine PLATE FITTER Work Phone: [facility] 03-02-2024 09:29-0400 Heart rate 82 /min Rosario Francine PLATE FITTER Work Phone: [facility] 03-02-2024 09:29-0400 Respiratory rate 18 /min Rosario Aichholz PLATE FITTER Work Phone: [facility] 03-02-2024 09:29-0400 SaO2% (BldA) [Mass fraction] 98 % Rosario Aichholz PLATE FITTER Work Phone: [facility] 03-02-2024 09:29-0400 Systolic blood pressure 110 mm[Hg] Rosario Aichholz PLATE FITTER Work Phone: [facility] 02-18-2024 13:23-0400 Body height 160 cm Rosario Aichholz PLATE FITTER Work Phone: [facility] 02-18-2024 13:23-0400 Body mass index (BMI) [Ratio] 35.71 kg/m2 Rosario Aichholz PLATE FITTER Work Phone: [facility] 02-18-2024 13:23-0400 Body temperature 98.49 [degF] Rosario Aichholz PLATE FITTER Work Phone: [facility] 02-18-2024 13:23-0400 Body weight 91.44 kg Rosario Aichholz PLATE FITTER Work Phone: [facility] 02-18-2024 13:23-0400 Diastolic blood pressure 76 mm[Hg] Rosario Aichholz PLATE FITTER Work Phone: [facility] 02-18-2024 13:23-0400 Heart rate 84 /min Rosario Aichholz PLATE FITTER Work Phone: [facility] 02-18-2024 13:23-0400 Respiratory rate 18 /min Rosario Aichholz PLATE FITTER Work Phone: [facility] 02-18-2024 13:23-0400 SaO2% (BldA) [Mass fraction] 98 % Rosario Aichholz PLATE FITTER Work Phone: [facility] 02-18-2024 13:23-0400 Systolic blood pressure 110 mm[Hg] Rosario Aichholz PLATE FITTER Work Phone: [facility] 02-07-2024 18:36-0400 Body temperature 97.7 [degF] [facility] 02-07-2024 18:36-0400 Diastolic blood pressure 84 mm[Hg] [facility] 02-07-2024 18:36-0400 Heart rate 67 /min [facility] [employer] 02-07-2024 18:36-0400 Respiratory rate 15 /min [facility] 02-07-2024 18:36-0400 SaO2% (BldA) [Mass fraction] 98 % [facility] [facility] 02-07-2024 18:36-0400 Systolic blood pressure 122 mm[Hg] [facility] 09-10-2023 17:43-0400 Body height 157.5 cm Tiesha Spencer DO Work Phone: [facility] 09-10-2023 17:43-0400 Body mass index (BMI) [Ratio] 38.78 kg/m2 Tiesha Spencer DO Work Phone: [facility] [employer] 09-10-2023 17:43-0400 Body temperature 98.2 [degF] Tiesha Spencer DO Work Phone: [facility] 09-10-2023 17:43-0400 Body weight 96.16 kg Tiesha Spencer DO Work Phone: [facility] [employer] 09-10-2023 17:43-0400 Diastolic blood pressure 83 mm[Hg] Tiesha Spencer DO Work Phone: [facility] [employer] 09-10-2023 17:43-0400 Heart rate 87 /min Tiesha Spencer DO Work Phone: [facility] [employer] 09-10-2023 17:43-0400 Respiratory rate 20 /min Tiesha Spencer DO Work Phone: [facility] [employer] 09-10-2023 17:43-0400 SaO2% (BldA) [Mass fraction] 100 % Tiesha Spencer DO Work Phone: [facility] [employer] 09-10-2023 17:43-0400 Systolic blood pressure 137 mm[Hg] Tiesha Spencer DO Work Phone: [facility] [employer] 07-08-2023 14:32-0500 Body mass index (BMI) [Ratio] 36.39 kg/m2 Montanarayo Kerno DO Work Phone: [facility] 07-08-2023 14:32-0500 Body weight 96.16 kg Montana Kerno DO Work Phone: [facility] 07-08-2023 14:32-0500 Diastolic blood pressure 74 mm[Hg] Montana Kerno DO Work Phone: [facility] 07-08-2023 14:32-0500 Systolic blood pressure 118 mm[Hg] Montana Kerno DO Work Phone: [facility] 10-23-2022 10:15-0400 Body temperature 99.5 [degF] Tiesha Spencer DO Work Phone: [facility] [employer] 10-23-2022 10:15-0400 Diastolic blood pressure 60 mm[Hg] Tiesha Spencer DO Work Phone: [facility] [employer] 10-23-2022 10:15-0400 Heart rate 94 /min Tiesha Spencer DO Work Phone: [facility] [employer] 10-23-2022 10:15-0400 Systolic blood pressure 114 mm[Hg] Tiesha Spencer DO Work Phone: [facility] [employer] 10-23-2022 08:48-0400 SaO2% (BldA) [Mass fraction] 98 % Tiesha Spencer DO Work Phone: [facility] [employer] 10-23-2022 08:27-0400 Body mass index (BMI) [Ratio] 32.61 kg/m2 Tiesha Spencer DO Work Phone: [facility] [employer] 10-23-2022 08:27-0400 Body weight 86.18 kg Tiesha Spencer DO Work Phone: [facility] [employer] 10-23-2022 08:27-0400 Respiratory rate 16 /min Tiesha Spencer DO Work Phone: [facility] [employer] 10-22-2022 09:47-0400 Diastolic blood pressure 70 mm[Hg] Nancy West MD Work Phone: [facility] [employer] 10-22-2022 09:47-0400 Systolic blood pressure 105 mm[Hg] Nancy West MD Work Phone: [facility] [employer] 10-22-2022 09:42-0400 Body height 162.6 cm Nancy West MD Work Phone: [facility] [employer] 10-22-2022 09:42-0400 Body mass index (BMI) [Ratio] 32.61 kg/m2 Nancy West MD Work Phone: [facility] [employer] 10-22-2022 09:42-0400 Body temperature 100.09 [degF] Nancy West MD Work Phone: [facility] [employer] 10-22-2022 09:42-0400 Body weight 86.18 kg Nancy West MD Work Phone: [facility] [employer] 10-22-2022 09:42-0400 Heart rate 97 /min Nancy West MD Work Phone: [facility] [employer] 10-22-2022 09:42-0400 Respiratory rate 18 /min Nancy West MD Work Phone: [facility] [employer] 10-22-2022 09:42-0400 SaO2% (BldA) [Mass fraction] 98 % Nancy West MD Work Phone: [facility] [employer] 12-22-2021 13:10-0400 Body height 162.56 cm Lissette Shin Other [employer] [facility] Other 12-22-2021 13:10-0400 Body temperature 101.2 [degF] Lissette Shin Other [facility] Other 12-22-2021 13:10-0400 Respiratory rate 18 /min Lissette Shin Other [facility] Other 12-22-2021 13:10-0400 SaO2% (BldA) [Mass fraction] 98 % Lissette Shin Other [facility] Other 06-04-2021 18:00-0500 Body height 162.56 cm Lissette Ginty Other [facility] Other 06-04-2021 18:00-0500 Body mass index (BMI) [Ratio] 30.89 kg/m2 Lissette Ginty Other [facility] Other 06-04-2021 18:00-0500 Body temperature 97.3 [degF] Lissette Ginty Other [facility] Other 06-04-2021 18:00-0500 Body weight 81.65 kg Lissette Ginty Other [facility] Other 06-04-2021 18:00-0500 Respiratory rate 18 /min Lissette Ginty Other [facility] Other 06-04-2021 18:00-0500 SaO2% (BldA) [Mass fraction] 98 % Lissette Ginty Other [facility] Other Encounters Encounter Date Encounter Type Care Provider Facility Start: 05-31-2024 End: 05-31-2024 Emergency department patient visit Rosalie Foster MD Work Phone: [facility] Emergency Department Comment on above: Acute upper respirat ory infection (Primary Dx) Start: 05-31-2024 End: 05-31-2024 Emergency department patient visit NO PCP NO PCP [facility] Start: 05-23-2024 End: 05-23-2024 Bamboo flowsheet Jefry New Lorelei-Nossek REFERENCE TEST CLERK-CIRCLE SAW OPERATOR Work Phone: [facility] Start: 05-23-2024 End: 05-23-2024 Bamboo flowsheet Jefry New Lorelei-Nossek REFERENCE TEST CLERK-CIRCLE SAW OPERATOR Work Phone: [facility] Start: 05-23-2024 End: 05-23-2024 ambulatory JEFRY Virgen LORELEI-NOSSEK Not Available Start: 05-23-2024 End: 05-23-2024 Office outpatient visit 25 minutes Jefry Virgen Lorelei-Nossek REFERENCE TEST CLERK-CIRCLE SAW OPERATOR Work Phone: [facility] Comment on above: Hx of high risk medi cation treatment; Bipolar 1 disorder ([facility]) Start: 05-02-2024 End: 05-02-2024 Bamboo flowsheet Jefry Virgen Lorelei-Nossek REFERENCE TEST CLERK-CIRCLE SAW OPERATOR Work Phone: [facility] Start: 05-02-2024 End: 05-02-2024 Bamboo flowsheet Jefry Virgen Lorelei-Nossek REFERENCE TEST CLERK-CIRCLE SAW OPERATOR Work Phone: [facility] Start: 05-02-2024 End: 05-02-2024 Office outpatient new 60 minutes Jefry Virgen Lorelei-Nossek REFERENCE TEST CLERK-CIRCLE SAW OPERATOR Work Phone: [facility] Comment on above: KELI (generalized anx iety disorder) ([facility]) Start: 05-02-2024 End: 05-02-2024 ambulatory JEFRY Viregn LORELEI-NOSSEK Not Available Start: 04-28-2024 End: 04-28-2024 Office outpatient visit 10 minutes Rosario Escamilla PLATE FITTER Work Phone: [facility] Comment on above: Acute non-recurrent pansinusitis (Primary Dx); Tobacco dependence Start: 04-28-2024 End: 04-28-2024 ambulatory ROSARIO AICHHOLZ Not Available Start: 04-27-2024 End: 04-27-2024 Refill Rosario Francine PLATE FITTER Work Phone: [facility] Comment on above: KELI (generalized anx iety disorder) (CMS/HCC); Fibromyalgia Start: 04-22-2024 End: 04-22-2024 Emergency department patient visit [facility] ED Comment on above: Lower respiratory in fection (Primary Dx); Acute non-recurrent pansinusitis Start: 04-13-2024 End: 04-13-2024 Bamboo flowsheet Rosario Escamilla PLATE FITTER Work Phone: [facility] Start: 04-13-2024 End: 04-13-2024 Bamboo flowsheet Rosario Escamilla PLATE FITTER Work Phone: [facility] Start: 04-13-2024 End: 04-13-2024 Office outpatient visit 25 minutes Rosario Escamilla PLATE FITTER Work Phone: [facility] Comment on [...] 03-02-2024 End: 03-02-2024 Bamboo flowsheet Rosario Aichholz PLATE FITTER Work Phone: [facility] Start: 03-02-2024 End: 03-02-2024 Bamboo flowsheet Rosario Aichholz PLATE FITTER Work Phone: [facility] Start: 03-02-2024 End: 03-02-2024 Refill Rosario Aichholz PLATE FITTER Work Phone: [facility] Comment on above: Fibromyalgia (Primar y Dx) Start: 03-02-2024 End: 03-02-2024 Office outpatient visit 15 minutes Rosario Aichholz PLATE FITTER Work Phone: [facility] Comment on above: Fibromyalgia (Primar y Dx); KELI (generalized anxiety disorder) ([facility]); Class 2 obesity due to excess calories without serious comorbidity in adult, unspecified BMI Start: 02-18-2024 End: 02-18-2024 Bamboo flowsheet Rosario Aichholz PLATE FITTER Work Phone: [facility] Start: 02-18-2024 End: 02-18-2024 Bamboo flowsheet Rosario Aichholz PLATE FITTER Work Phone: [facility] Start: 02-18-2024 End: 02-18-2024 ambulatory ROSRAIO AICHHOLZ Not Available Start: 02-18-2024 End: 02-18-2024 Office outpatient visit 15 minutes Rosario Aichholz PLATE FITTER Work Phone: [facility] Comment on above: Subacute maxillary s inusitis (Primary Dx); Class 2 obesity due to excess calories without serious comorbidity in adult, unspecified BMI; COVID; Non-recurrent acute suppurative otitis media of right ear without spontaneous rupture of tympanic membrane Start: 02-11-2024 End: 02-11-2024 Refill Rosario Aichholz PLATE FITTER [facility] Comment on above: Dizziness and giddin ess (Primary Dx) Start: 02-08-2024 End: 02-08-2024 Emergency department patient visit [facility] Start: 02-07-2024 End: 02-07-2024 Emergency department patient visit [facility] ED Start: 02-05-2024 End: 02-05-2024 Refill Rosario Aichholz PLATE FITTER Work Phone: [facility] Comment on above: Abnormal weight gain ; Class 2 obesity due to excess calories without serious comorbidity in adult, unspecified BMI Start: 02-04-2024 End: 02-04-2024 Emergency department patient visit [facility] Start: 01-07-2024 End: 01-07-2024 ambulatory ROSARIO AICHHOLZ [...] 09-23-2023 ambulatory Rosario J Aichholz Facility:[facility] Start: 09-23-2023 End: 09-23-2023 ambulatory Rosario Aichholz Work Phone: [facility] Work Phone: Start: 09-23-2023 End: 09-23-2023 Departed Referred Rosario Aichholz Work Phone: [facility] Start: 09-21-2023 End: 09-21-2023 ambulatory ROSARIO ESCAMILLA Not Available Start: 09-10-2023 End: 09-10-2023 Emergency department patient visit Tiesha Spencer DO Work Phone: [facility] ED Comment on above: Right flank pain (Pr imary Dx) Start: 08-19-2023 End: 08-19-2023 ambulatory [place] RIGOBERTO Not Available Start: 08-03-2023 End: 08-03-2023 ambulatory VONDA FAUZIA Not Available Start: 07-30-2023 End: 07-30-2023 ambulatory VONDA CAGE Not Available Start: 07-08-2023 End: 07-08-2023 Patient encounter procedure Montana Rigoberto DO Work Phone: [facility] Work Phone: Start: 07-08-2023 End: 07-08-2023 Periodic preventive med est patient 18-39 yrs Montana Rigoberto DO Work Phone: [facility] Comment on above: Well woman exam with routine gynecological exam; Preop examination; Menorrhagia with irregular cycle; Pelvic pain in female Start: 07-08-2023 End: 07-08-2023 Preprocedural examination done Montana Rigoberto DO Work Phone: [facility] Start: 07-08-2023 End: 07-08-2023 ambulatory MON[place] RIGOBERTO Not Available Start: 06-23-2023 End: 06-23-2023 ambulatory [place] RIGOBERTO Not Available Start: 10-23-2022 End: 10-23-2022 Emergency department patient visit Tiesha Spencer DO Work Phone: [facility] ED Comment on above: Viral syndrome (Prim waqas Dx); Migraine without aura and with status migrainosus, not intractable; Sinus congestion Start: 10-22-2022 End: 10-22-2022 Emergency department patient visit Nancy West MD Work Phone: [facility] ED Comment on above: Nonintractable heada audie, unspecified chronicity pattern, unspecified headache type (Primary Dx); Acute recurrent sinusitis, unspecified location Start: 07-19-2022 End: 07-19-2022 ambulatory 3D TECHNOLOGIST ROSARIO AICHHOLZ Facility:[facility] Start: 05-20-2022 End: 05-20-2022 ambulatory 3D TECHNOLOGIST ROSARIO AICHHOLZ Facility:[facility] Start: 05-01-2022 End: 05-01-2022 ambulatory 3D TECHNOLOGIST ROSARIO AICHHOLZ Facility:[facility] Start: 04-23-2022 End: 04-24-2022 ambulatory 3D TECHNOLOGIST ROSARIO AICHHOLZ Facility:[facility] Start: 02-08-2022 End: 02-08-2022 ambulatory 3D TECHNOLOGIST ROSARIO AICHHOLZ Facility:[facility] Start: 12-31-2021 End: 12-31-2021 ambulatory 3D TECHNOLOGIST ROSARIO AICHHOLZ Facility:[facility] Start: 12-30-2021 End: 12-31-2021 ambulatory 3D TECHNOLOGIST ROSARIO AICHHOLZ Facility:[facility] Start: 12-24-2021 End: 12-24-2021 ambulatory 3D TECHNOLOGIST ROSARIO AICHHOLZ Facility:[facility] Start: 12-23-2021 End: 12-23-2021 ambulatory 3D TECHNOLOGIST ROSARIO AICHHOLZ Facility:[facility] Start: 12-22-2021 End: 12-22-2021 ambulatory Lissette Kip Other [facility] Other Start: 12-22-2021 Office outpatient vi sit 25 minutes Lissette Kip [facility] [place] Start: 06-04-2021 End: 06-04-2021 ambulatory Lissette Jesus Other [facility] Other Start: 06-04-2021 Office outpatient vi sit 15 minutes Lissette Gintrayo [facility] [place] Procedures Date Procedure Procedure Detail Performing Clinician Start: 05-31-2024 COVID-19, RAPID Rosalie Hiro Foster MD Work Phone: Start: 05-31-2024 Iaadiadoo influenza Juan J is Hiro Foster MD Work Phone: Start: 04-22-2024 Radiologic exam ches t 2 views M Dale Colón REFERENCE TEST CLERK - 3D TECHNOLOGIST Work Phone: Start: 04-12-2024 URINARY TRACT INFECT [...] in Cervix by Cyto stain Rosario Escamilla PLATE FITTER Work Phone: Start: 10-23-2022 Radiologic exam ches [...] Screening for malign ant neoplasm of cervix [facility] Start: 11-21-2024 End: 05-23-2025 Lipid 1996 panel - Serum or Plasma Lipid panel Lab Routine Hx of high risk medication treatment Expected: 11/21/2024 (Approximate), Expires: 05/23/2025 [facility] Comment on above: Expected: 11/21/2024 (Approximate), Expires: 05/23/2025 Start: 06-15-2024 End: 06-15-2024 Patient encounter procedure 06/15/2024 1:30 PM EST Office Visit [facility] [address] [facility] [address] [place] [address] Jefry Pedraza, REFERENCE TEST CLERK-CIRCLE SAW OPERATOR [address] [facility] [address] [place] [address] [facility] Start: 05-23-2024 End: 05-23-2025 CBC W Auto Differential panel - Blood CBC and differential Lab Routine Hx of high risk medication treatment Expected: 05/23/2024 (Approximate), Expires: 05/23/2025 [facility] Comment on above: Expected: 05/23/2024 (Approximate), Expires: 05/23/2025 Start: 05-23-2024 End: 05-23-2025 Comprehensive metabolic 2000 panel - Serum or Plasma Comprehensive metabolic panel Lab Routine Hx of high risk medication treatment Expected: 05/23/2024 (Approximate), Expires: 05/23/2025 [facility] Comment on above: Expected: 05/23/2024 (Approximate), Expires: 05/23/2025 Start: 05-23-2024 End: 05-23-2025 Thyroid panel with tsh Thyroid panel with tsh Lab Routine Hx of high risk medication treatment Expected: 05/23/2024 (Approximate), Expires: 05/23/2025 [facility] Work Phone: Comment on above: Expected: 05/23/2024 (Approximate), Expires: 05/23/2025 Start: 05-23-2024 End: 05-23-2024 Patient encounter procedure 05/23/2024 9:30 AM EST Office Visit [facility] [address] [facility] [address] [place] [address] Jefry Pedraza, [facility]-CIRCLE SAW OPERATOR [address] [facility] [address] [place] [address] [facility] Start: 05-12-2024 End: 05-12-2024 Patient encounter procedure [facility] Start: 05-02-2024 End: 05-02-2024 Patient encounter procedure 05/02/2024 12:30 PM EST Office Visit [facility] [address] [facility] [address] [place] [address] Kayla Narvaez NP [address] [facility] [address] [place] [address] [facility] Start: 05-02-2024 End: 05-02-2024 Patient encounter procedure 05/02/2024 9:30 AM EST Office Visit [facility] [address] [facility] [address] [place] [address] Jefry Pedraza, [facility] [address] [facility] [address] [place] [address] KELI (generalized anxiety disorder) (CMS/HCC) [facility] Comment on above: KELI (generalized anx iety disorder) (CMS/HCC) Start: 04-19-2024 End: 04-19-2024 Professional / ancillary services management 04/19/2024 11:00 AM EST Ancillary Procedure [facility] [address] [place] [id number] [facility] Start: 04-13-2024 End: 04-13-2024 Patient encounter procedure [facility] Comment on above: Class 2 obesity due to excess calories without serious comorbidity with body mass index (BMI) of 35.0 to 35.9 in adult (Primary Dx); Tobacco dependence Start: 04-12-2024 End: 04-12-2025 US for US PELVIS-TRANSVAG IF INDICATED Imaging Routine Pelvic pain in female Expected: 04/12/2024 (Approximate), Expires: 04/12/2025 [facility] Comment on above: Expected: 04/12/2024 (Approximate), Expires: 04/12/2025 Start: 03-30-2024 End: 03-30-2024 Patient encounter procedure 03/30/2024 10:00 AM EST Office Visit [facility] [address] [place] [address] Rosario Escamilla, SAROJ [address] [place] [id number] [facility] Start: 03-08-2024 End: 03-08-2024 Patient encounter procedure 03/08/2024 9:00 AM EDT Office Visit [facility] [address] [place] [address] Rosario Escamilla, SAROJ [address] [place] [id number] [facility] Start: 03-02-2024 End: 03-02-2024 Patient encounter procedure 03/02/2024 9:20 AM EDT Office Visit [facility] [address] [place] [address] Rosario Escamilla NP [address] [place] [id number] [facility] Start: 02-18-2024 End: 02-18-2024 Patient encounter procedure 02/18/2024 1:20 PM EDT Office Visit [facility] [address] [place] [address] Rosario Escamilla NP [address] [place] [address] [facility] Start: 01-24-2024 COVID-19 Vaccine ( season) COVID-19 Vaccine ( season) [facility] Start: 12-24-2023 Influenza vaccination [facility] Start: 11-23-2023 End: 11-23-2023 Patient encounter procedure 11/23/2023 3:20 PM EDT Office Visit [facility] [address] [place] [id number] Rosario Escamilla, SAROJ [address] [place] [phone] [facility] Start: 11-22-2023 Influenza vaccination Influenza Vacc ine (#1) [facility] Comment on above: Postponed from 01/23 (Patient Refused) Start: 07-24-2023 Screening for malign ant neoplasm of cervix Cervical Cancer Screening [facility] Comment on above: Postponed from 11/02 (Other Patient Reasons) Start: 12-23-2022 Influenza vaccination Flu vacc ine (Season Ended) [facility] Start: 11-02-2021 Screening for malign ant neoplasm of cervix [facility] Start: 11-02-2012 Screening for malign ant neoplasm of cervix Pap smear [facility] Start: 11-02-2010 DTaP/Tdap/Td vaccine (1 - Tdap) DTaP/Tdap/Td vaccine (1 - Tdap) [facility] Start: 11-02-2009 Hepatitis C screening Hepatitis C sc reen [facility] Start: 11-02-2006 HIV screening HIV screen [facility] Start: 11-02-2004 Varicella vaccine (1 of 2 - 13+ 2-dose series) Varicella vaccine (1 of 2 - 13+ 2-dose series) [facility] Start: 03-04-2004 Hepatitis B vaccine (2 of 3 - 3-dose series) Hepatitis B vaccine (2 of 3 - 3-dose series) [facility] Start: 2003 Depression Screen Depression Screen [facility] Start: 11-02-2002 DTaP/Tdap/Td vaccine (5 - Tdap) DTaP/Tdap/Td vaccine (5 - Tdap) [facility] Start: 11-02-1997 Pneumococcal 0-64 ye ars Vaccine (1 - PCV) Pneumococcal 0-64 years Vaccine (1 - PCV) [facility] Start: 11-02-1992 Varicella vaccine (1 of 2 - 2-dose childhood series) Varicella vaccine (1 of 2 - 2-dose childhood series) [facility] Start: 05-04-1992 COVID-19 Vaccine (#1) COVID-19 Vacci ne (#1) [facility] Start: 1991 Hepatitis B vaccine (1 of 3 - 3-dose series) Hepatitis B vaccine (1 of 3 - 3-dose series) [facility] Bacteria identified in Urine by Culture Urine culture Microbiology Routine Pelvic pain in female Ordered: 04/12/2024 [facility] [employer] Comment on above: Ordered: 04/12/2024 CBC panel - Blood by Automated count CBC Lab Routine Pelvic pain in female Ordered: 04/12/2024 [facility] [employer] Work Phone: Comment on above: Ordered: 04/12/2024 Comprehensive metabo lic 2000 panel - Serum or Plasma Comprehensive metabolic panel Lab Routine Pelvic pain in female Ordered: 04/12/2024 [facility] [employer] Comment on above: Ordered: 04/12/2024 Cytology Cervical or vaginal smear or scraping study Pap Smear Pathology and Cytology Routine Well woman exam with routine gynecological exam Ordered: 07/08/2023 [facility] [employer] Work Phone: Comment on above: Ordered: 07/08/2023 Human papilloma viru s DNA [Presence] in Unspecified specimen by Probe with amplification HPV DNA probe, amplified Microbiology Routine Well woman exam with routine gynecological exam Ordered: 07/08/2023 [facility] [employer] Comment on above: Ordered: 07/08/2023 End: 10-23-2022 Respiratory Panel, Molecular, with COVID-19 (Restricted: peds pts or suitable admitted adults) [facility] Work Phone: Comment on above: One Time for 1 Occur rences starting 10/23/2022 until 10/23/2022 End: 09-10-2023 SPECIMEN REJECTION [facility] [facility] Comment on above: Once for 1 Occurrenc es starting 09/10/2023 until 09/10/2023 Immunizations Immunization Date Immunization Notes Care Provider Bridgett mesa 02-05-2004 hepatitis B vaccine, pediatric or pediatric/adolescent dosage Rosario Aichholz PLATE [employer]TER Work Phone: [facility] 09-19-1996 diphtheria, tetanus toxoids and acellular pertussis vaccine, unspecified formulation Rosario Aichholz PLATE FITTER Work Phone: [facility] 09-19-1996 measles, mumps and rubella virus vaccine Rosario Aichholz PLATE FITTER Work Phone: [facility] 09-19-1996 trivalent poliovirus vaccine, live, oral Rosario Aichholz PLATE FITTER Work Phone: [facility] 02-12-1994 diphtheria, tetanus toxoids and pertussis vaccine Rosario Aichholz PLATE FITTER Work Phone: [facility] 02-12-1994 trivalent poliovirus vaccine, live, oral Rosario Aichholz PLATE FITTER Work Phone: [facility] 09-30-1993 diphtheria, tetanus toxoids and pertussis vaccine Rosario Aichholz PLATE FITTER Work Phone: [facility] 09-30-1993 haemophilus influenz ae type b vaccine, conjugate unspecified formulation Rosario Aichholz PLATE FITTER Work Phone: [facility] 09-30-1993 measles, mumps and rubella virus vaccine Rosario Aichholz PLATE FITTER Work Phone: [facility] 09-30-1993 trivalent poliovirus vaccine, live, oral Rosario Aichholz PLATE FITTER Work Phone: [facility] 04-16-1992 diphtheria, tetanus toxoids and pertussis vaccine Rosario Aichholz PLATE FITTER Work Phone: [facility] 04-16-1992 haemophilus influenz ae type b vaccine, conjugate unspecified formulation Rosario Escamilla PLATE FITTER Work Phone: [facility] 04-16-1992 trivalent poliovirus vaccine, live, oral Rosario Escamilla PLATE FITTER Work Phone: [facility] Healthcare Payers Date Payer Category Payer Self-pay 2022 Unknown [facility] MEDICA[facility] [id number] 2022-Present [phone] [address] [place] [address] [id number] 2022 Medicaid [employer] [place] [id number] 2022-Present [address] [place] [address] [id number] 2022 Private Health Insurance [employer] 1.2.840.690862.1.13.693.2 .7.9.897564.949644.315 1991 Unknown [id number] 2.16840.1.139549.3.579.2 .593 1991 Unknown [id number] 2.16840.1.377860.3.579.2 .593 1991 Unknown [id number] 2.16.840.1.015058.3.579.2 .593 1991 Unknown [id number] 2.16.840.1.655431.3.579.2 .593 1991 Unknown [id number] 2.16.840.1.113347.3.579.2 .593 1991 Unknown [id number] 2.16.840.1.121777.3.579.2 .593 1991 Unknown [id number] 2.16.840.1.645063.3.579.2 .593 1991 Unknown [id number] 2.16.840.1.938083.3.579.2 .59 1991 Unknown [id number] 2.16.840.1.004318.3.579.2 .59 1991 Unknown [id number] 2.16.840.1.447186.3.579.2 .1258 1991 Unknown [id number] 2.16.840.1.843826.3.579.2 .1258 1991 Unknown [id number] 2.16.840.1.351791.3.579.2 .1258 1991 Unknown [id number] 2.16.840.1.684103.3.579.2 .1258 1991 Unknown [id number] 2.16.840.1.891793.3.579.2 .9 1991 Unknown [id number] 2.16.840.1.760157.3.579.2 .1258 1991 Unknown [id number] 2.16.840.1.165640.3.579.2 .1258 1991 Unknown [id number] 2.16.840.1.289737.3.579.2 .1258 1991 Unknown [id number] 2.16.840.1.172789.3.579.2 .1258 1991 Unknown [id number] 2.16.840.1.635547.3.579.2 .1258 1991 Unknown [id number] 2.16.840.1.466923.3.579.2 .1259 1991 Unknown [id number] 2.16.840.1.682851.3.579.2 .9 1991 Unknown [id number] 2.16.840.1.599775.3.579.2 .9 1991 Unknown [id number] 2.16.840.1.601097.3.579.2 .9 1991 Unknown [id number] 2.16.840.1.456139.3.579.2 .9 1991 Unknown [id number] 2.16.840.1.247985.3.579.2 .1258 1991 Unknown [id number] 2.16.840.1.511805.3.579.2 .9 1991 Unknown [id number] 2.16.840.1.438530.3.579.2 .1258 1991 Unknown [id number] 2.16.840.1.625400.3.579.2 .9 1991 Unknown [id number] 2.16.840.1.732905.3.579.2 .6 1991 Unknown [id number] 2.16.840.1.491995.3.579.2 .173 1991 Unknown [id number] 2.16.840.1.147782.3.579.2 .1991 Unknown [id number] 2.16.840.1.442721.3.579.2 .173 1991 Unknown [id number] 2.16.840.1.443063.3.579.2 .173 1991 Unknown [id number] 2.16.840.1.858524.3.579.2 .173 1991 Unknown [id number] 2.16.840.1.965134.3.579.2 .173 1958 Medicaid [id number] 1959 Unknown [id number] 2.16.840.1.868490.19 Unknown [id number] 2.16.840.1.612844.3.579.2 .531 Unknown [id number] Unknown 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 [id number] Social History Date Type Detail Facility Unknown if ever smoked [facility] Other Start: 05-21-2023 End: 09-10-2023 Sex Assigned At [employer] Other Start: 10-22-2022 End: 05-02-2024 Tobacco smoking status ALIS Smokes tobacco daily [employer] Phone: History of tobacco use Cigarette Smoker B ON [employer] Phone: Start: 10-22-2022 End: 05-26-2023 Tobacco use and exposure Smokeless tobacco non-user [employer] Phone: Start: 10-22-2022 End: 10-23-2022 History SDOH Alcohol Frequency 1 [employer] Phone: Start: 1990 Sex Assigned At Not on file B ON [employer] Phone: Start: 10-23-2022 History SDOH Alcohol Std Drinks 0 [employer] Phone: Start: 05-19-2023 End: 09-10-2023 Cigarettes smoked current (pack per day) - Reported 0.5 [facility] Start: 05-26-2023 Tobacco smoking stat [facility] Ex-smoker [facility] History of tobacco use Current smoker [facility] Start: 09-10-2023 End: 05-31-2024 Alcohol intake Lifetime non-drinker (finding) [facility] How often to you hav e a drink containing alcohol? Never [employer] How many standard drinks containing alcohol do you have on a typical day? Patient does not drink [employer] [facility] Start: 1990 Sex Assigned At Female F [facility] Start: 03-02-2024 End: 05-23-2024 Alcoholic beverage intake Ex-drinker (finding) [facility] Start: 09-21-2023 Alcohol Comment caffine: 1 cup of coffee daily and soda/energy drinks twice a week [facility] Start: 05-02-2024 Education 15 [facility]alt [facility] Clinical Notes 06-04-2021 to 05-31-2024 Discharge InstructionsAttachLeonardo Pedraza [facility] 05/23/[facility] 9:30 AM Avery Yadav LPN - 05/23/2024 9:30 AM Pallavi Pedraza [facility] - 05/02/2024 9:30 AM ESTAttachments Note [...] sent through Care Everywhere.URI (Upper Respiratory Infection) (Georgian)documented in this encounter [facility] 05-23-2024 History of Present illness Narrative Images [...] stopped it then documented in this encounter [facility] 05-02-2024 History of Present illness Narrative [...] disorder when patient was incarcerated. Treated by [facility]. She remembers seeing a counselor but does not remember if they were prescribing medications. Med trials Include prozac, celexa-thinks made her worse was In closet so depressed.Duloxetine, risperdal. Current medications are Cymbalta and gabapentin. Patient reports a history of psychiatric hospitalizations. Patient states she ended up in [facility] in [place] when her counselor suspect that she was [...] Is her significant other. 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 Stressors [...] documentation 75 min documented in this encounter [facility] 04-28-2024 History of Present illness Narrative Associated Problem(s): Acute non-recurrent pansinusitis Was in [place] ER last week, No better with zithromax-did [...] of the risks of continued smoking: stroke, FL, all forms of cancer, lung disease, and [...] of the risks of continued smoking: stroke, FL, all forms of cancer, lung disease, and . Options for quitting smoking include: cold turkey, hypnosis, acupuncture, nicotine replacement meds (gum, lozenges, and patches), Buproprion, and Varenicline. At this time pt is encouraged to evaluate their goals for wanting to quit smoking, and reach out to provider when ready to start this process documented in this encounter [facility] 04-28-2024 Instructions Rosario Escamilla NP - 04/28/2024 11:30 AM EST Finish atb, steroid medrol dose pack, also cough syrup While taking the steroids and cough syrup, hold the adipex and once done with steroids and cough med then resume adipex May try [facility] nasal irrigation as well: use distilled water documented in this encounter [facility] 04-22-2024 Hospital Discharge instructions Virgen Colón [...] cannot be sent through Care Everywhere.Sinusitis: Acute (Georgian)Cough: Chronic (Georgian)documented in this encounter [facility] 04-13-2024 History of Present illness Narrative Associated Problem(s): Abnormal weight gain Pt meets qualifications of [facility] [id number] for weight loss. BMI>30 or >27 [...] drinks. 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 She [...] of the risks of continued smoking: stroke, FL, all forms of cancer, lung disease, and [...] of the risks of continued smoking: stroke, FL, all forms of cancer, lung disease, and . Options for quitting smoking include: cold turkey, hypnosis, acupuncture, nicotine replacement meds (gum, lozenges, and patches), Buproprion, and Varenicline. At this time pt is encouraged to evaluate their goals for wanting to quit smoking, and reach out to provider when ready to start this process documented in this encounter [facility] 04-13-2024 Instructions Rosario Escamilla NP - 04/13/2024 11:00 AM EST Refer to psych for evaluation for proper diagnosis and medication management documented in this encounter [facility] 04-12-2024 History of Present illness Narrative [...] Noted Lupus 05/02/2019 KELI (generalized anxiety disorder) ([facility]) 05/20/2023 Ear itching 05/21/2023 Fibromyalgia 05/21/2023 Class 2 obesity due to excess calories without serious comorbidity in adult 05/21/2023 Thrombocytopenia ([facility]) 09/21/2023 RLS (restless legs syndrome) 09/21/2023 Chronic [...] drug use Lumbar back pain Mood disorder ([facility]) Neurocardiogenic syncope Obesity (BMI 30-39.9) Rash of [...] of: [facility] documented in this encounter [facility] 03-02-2024 History of Present illness Narrative Associated Problem(s): KELI (generalized anxiety disorder) ([facility]) No med dose changes at this time [...] Addressed This Visit KELI (generalized anxiety disorder) ([facility]) No med dose changes at this time [...] comorbidity in adult documented in this encounter [facility] 02-18-2024 History of Present illness Narrative [...] 875-125 MG tablet documented in this encounter [facility] 09-10-2023 Hospital Discharge instructions Tiesha Spencer DO - 09/10/2023 7:13 PM EDT Tylenol as needed. Follow-up with your doctor in regards to your low platelet counts. Return if you have any worsening symptoms. Heating pad or ice pack may also be helpful. Avoid ibuprofen or Aleve. The following attachments cannot be sent through Care Everywhere.Flank Pain (Georgian)documented in this encounter [facility] 07-08-2023 History of Present illness Narrative Reason for Appointment: Patient ID: Lina Alcantar is a 32 y.o. female who presents for Well Women Visit and Pre-op Visit Patient presents today for a Pre Op appointment. Patient is scheduled to undergo Diagnostic Laparoscopy, possible LINDA, possible FOE, possible BSO on 07/24/[address] Franklin at [facility]. Current Medications: has a current medication list which includes the following prescription(s): acetaminophen, acetaminophen, duloxetine, gabapentin, and lorazepam. Medical History: Active Ambulatory Problems Diagnosis Date Noted Lupus ([facility]) 05/02/2019 KELI (generalized anxiety disorder) ([facility]) 05/20/2023 Ear itching 05/21/2023 Fibromyalgia 05/21/2023 Class 2 obesity due to excess calories without serious comorbidity in adult 05/21/2023 Resolved Ambulatory Problems Diagnosis Date Noted No Resolved Ambulatory Problems Past Medical History: Diagnosis Date Fatigue History of drug use Lumbar back pain Mood disorder ([facility]) Neurocardiogenic syncope Obesity (BMI 30-39.9) Rash of [...] nursing note reviewed. Exam conducted with a director human services present. Vitals: Estimated body mass index is [...] reviewed, and patient is to proceed to [facility] OR. Follow Up: Patient is to follow up between 1-2 weeks post operative to assess proper healing and recovery from procedure. Documented by: Aurora Valle LPN on behalf of [place] Franklin DO documented in this encounter [facility] 10-23-2022 Hospital Discharge instructions Tiesha Spencer [...] us to take care of you at [facility]. In the next few days you may receive a survey by mail or e-mail asking about the care you received during this visit. Please complete this if you are able, as this feedback helps us provide the best care possible. The following attachments cannot be sent through Care Everywhere.Migraine Headache (Georgian)documented in this encounter [facility] [employer] Phone: 10-22-2022 Hospital Discharge instructions Nancy West MD - 10/22/2022 11:37 AM EDT Continue current medications as prescribed. Take Augmentin as directed until complete. Make sure that you stay well-hydrated. Tylenol and or Motrin as needed for pain at home. Use [place] in place of Tylenol for pain not [...] be sent through Care Everywhere.Acute Sinusitis: Video (Georgian)Headache (Georgian)documented [facility] encounter [facility]: 12-22-2021 Evaluation note Encounter Date Diagnosis Assessment Notes Nov, Fever (ICD-10 - R50.9) Nov, Viral URI (ICD-10 - J06.9) Advised patient that COVID/Influenza A/B PCR test was negative today. Irion test negative. Advised patient that will treat [...] Nov, Fatigue, unspecified type (ICD-10 - R53.83) [facility] Other 01-11-2022 Evaluation note* Encounter Date Diagnosis [...] Patient care instructions given in writting by [facility] Care At Home document [facility] Other Evaluation note* Diagnosis Nonintractable headache, unspecified chronicity pattern, unspecified headache type- Primary Acute recurrent sinusitis, unspecified location documented in this encounter [employer] Phone: evaluation note* Diagnosis Viral syndrome- Primary Unspecified viral infection, in conditions classified elsewhere and of unspecified site Migraine without aura and with status migrainosus, not intractable Migraine without aura, without mention of intractable migraine with status migrainosus Sinus congestion Other diseases of nasal cavity and sinuses documented in this encounter [employer] Phone: evaluation note* Diagnosis Well woman exam with routine gynecological exam Routine gynecological examination Preop examination Unspecified pre-operative examination Menorrhagia with irregular cycle Pelvic pain in female Unspecified symptom associated with female genital organs documented in this encounter [facility]* Diagnosis Right flank pain- Primary Abdominal pain, unspecified site documented in this encounter [employer] noteNo assessment information available [facility] Work Phone: Evaluation note* Diagnosis Fibromyalgia- Primary Unspecified myalgia and myositis KELI (generalized anxiety disorder) ([facility]) Generalized anxiety disorder Class 2 obesity due to excess calories without serious comorbidity in adult, unspecified BMI documented in this encounter [facility]* Diagnosis Fibromyalgia- Primary Unspecified myalgia and myositis documented in this encounter [facility]* Diagnosis KELI (generalized anxiety disorder) ([facility])- Primary Generalized anxiety disorder Ear itching Fibromyalgia [...] legs syndrome (RLS) KELI (generalized anxiety disorder) ([facility])- Primary Generalized anxiety disorder Class 2 obesity [...] myalgia and myositis KELI (generalized anxiety disorder) ([facility]) Generalized anxiety disorder Class 2 obesity due to excess calories without serious comorbidity in adult, unspecified BMI Vaginal discharge Leukorrhea, not specified as infective Pelvic pain in female Unspecified symptom associated with female genital organs documented [facility] encounter [facility] Diagnosis KELI (generalized anxiety disorder) ([facility])- Primary Generalized anxiety disorder Ear itching Fibromyalgia Unspecified myalgia and myositis Class 2 obesity due to excess calories without serious comorbidity in adult, unspecified BMI Thrombocytopenia ([facility])- Primary Unspecified thrombocytopenia Fibromyalgia Unspecified myalgia and myositis Class 2 obesity due to excess calories without serious comorbidity in adult, unspecified BMI KELI (generalized anxiety disorder) ([facility]) Generalized anxiety disorder UTI symptoms RLS (restless legs syndrome) Restless legs syndrome (RLS) KELI (generalized anxiety disorder) ([facility])- Primary Generalized anxiety disorder Class 2 obesity [...] myalgia and myositis KELI (generalized anxiety disorder) ([facility]) Generalized anxiety disorder Class 2 obesity due to excess calories without serious comorbidity in adult, unspecified BMI KELI (generalized anxiety disorder) (CMS/HCC)- Primary Generalized anxiety disorder Class 2 obesity due to excess calories without serious comorbidity with body mass index (BMI) of 35.0 to 35.9 in adult Tobacco dependence Tobacco use disorder Abnormal weight gain documented in this encounter [facility]* Diagnosis Lower respiratory infection- Primary Other diseases of respiratory system, not elsewhere classified Acute non-recurrent pansinusitis documented in this encounter [facility]* Diagnosis KELI (generalized anxiety disorder) ([facility])- Primary Generalized anxiety disorder Ear itching Fibromyalgia Unspecified myalgia and myositis Class 2 obesity due to excess calories without serious comorbidity in adult, unspecified BMI Thrombocytopenia ([facility])- Primary Unspecified thrombocytopenia Fibromyalgia Unspecified myalgia and myositis Class 2 obesity due to excess calories without serious comorbidity in adult, unspecified BMI KELI (generalized anxiety disorder) (CMS/HCC) Generalized anxiety disorder UTI symptoms RLS (restless legs syndrome) Restless legs syndrome (RLS) KELI (generalized anxiety disorder) ([facility])- Primary Generalized anxiety disorder Class 2 obesity [...] myalgia and myositis documented in this encounter [facility]* Diagnosis KELI (generalized anxiety disorder) (CMS/HCC)- Primary Generalized anxiety disorder Ear itching Fibromyalgia Unspecified myalgia and myositis Class 2 obesity due to excess calories without serious comorbidity in adult, unspecified BMI Thrombocytopenia ([facility])- Primary Unspecified thrombocytopenia Fibromyalgia Unspecified myalgia and myositis Class 2 obesity due to excess calories without serious comorbidity in adult, unspecified BMI KELI (generalized anxiety disorder) ([facility]) Generalized anxiety disorder UTI symptoms RLS (restless legs syndrome) Restless legs syndrome (RLS) KELI (generalized anxiety disorder) ([facility])- Primary Generalized anxiety disorder Class [...] myalgia and myositis KELI (generalized anxiety disorder) ([facility]) Generalized anxiety disorder Class 2 obesity due to excess calories without serious comorbidity in adult, unspecified BMI KLEI (generalized anxiety disorder) ([facility])- Primary Generalized anxiety disorder Class [...] HealthcareEvaluation note* Diagnosis KELI (generalized anxiety disorder) ([facility])- Primary Generalized anxiety disorder Ear itching Fibromyalgia Unspecified myalgia and myositis Class 2 obesity due to excess calories without serious comorbidity in adult, unspecified BMI Thrombocytopenia ([facility])- Primary Unspecified thrombocytopenia Fibromyalgia Unspecified myalgia and myositis Class 2 obesity due to excess calories without serious comorbidity in adult, unspecified BMI KELI (generalized anxiety disorder) ([facility]) Generalized anxiety disorder UTI symptoms RLS (restless legs syndrome) Restless legs syndrome (RLS) KELI (generalized anxiety disorder) ([facility])- Primary Generalized anxiety disorder Class [...] myalgia and myositis KELI (generalized anxiety disorder) ([facility]) Generalized anxiety disorder Class 2 obesity due to excess calories without serious comorbidity in adult, unspecified BMI KELI (generalized anxiety disorder) ([facility])- Primary Generalized anxiety disorder Class 2 obesity due to excess calories without serious comorbidity with body mass index (BMI) of 35.0 to 35.9 in adult Tobacco dependence Tobacco use disorder Abnormal weight gain Acute non-recurrent pansinusitis- Primary Tobacco dependence Tobacco use disorder KELI (generalized anxiety disorder) ([facility]) Generalized anxiety disorder documented in this encounter [...] HealthcareEvaluation note* Diagnosis KELI (generalized anxiety disorder) ([facility])- Primary Generalized anxiety disorder Ear itching Fibromyalgia Unspecified myalgia and myositis Class 2 obesity due to excess calories without serious comorbidity in adult, unspecified BMI Thrombocytopenia ([facility])- Primary Unspecified thrombocytopenia Fibromyalgia Unspecified myalgia and myositis Class 2 obesity due to excess calories without serious comorbidity in adult, unspecified BMI KELI (generalized anxiety disorder) ([facility]) Generalized anxiety disorder UTI symptoms RLS (restless legs syndrome) Restless legs syndrome (RLS) KELI (generalized anxiety disorder) ([facility])- Primary Generalized anxiety disorder Class 2 obesity [...] myalgia and myositis KELI (generalized anxiety disorder) ([facility]) Generalized anxiety disorder Class 2 obesity due to excess calories without serious comorbidity in adult, unspecified BMI KELI (generalized anxiety disorder) ([facility])- Primary Generalized anxiety disorder Class 2 obesity [...] documented in this encounter [facility] Narrative - Reported* Type Description Date Surgical History Gallbladder 2010 Surgical History t&a Surgical History tubal ligation [facility] Other History general Narrative - Reported* Type Description Date Surgical History Gallbladder 2009 Surgical History t&a Surgical History tubal ligation Hospitalization History see above [facility] Other Summary Purpose Family History No Family [...] section and content) DATE CREATED AUTHOR 02/23/2020 [facility] DATE CREATED AUTHOR AUTHOR'S ORGANIZ ATION 08/26/2022 [facility] DATE CREATED AUTHOR AUTHOR'S ORGANIZ ATION 09/26/2023 [facility] DATE CREATED AUTHOR AUTHOR'S ORGANIZ ATION 05/24/2024 [facility] EPIC DATE CREATED AUTHOR AUTHOR'S ORGANIZ ATION 06/06/2024 [facility] DATE CREATED AUTHOR AUTHOR'S ORGANIZ ATION 06/06/2024 [facility] REASON FOR VISIT (unrecogniz ed [...] 02/03. 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 States weakness and dry cough over last several days. Denies chest pain/shortness of breath Reason Comments Vaginal Discharge Reason Comments Cough Ongoing for over a w picayune. Nonproductive, but patient states that she feels that her chest is congested, but she is unable to cough anything up. Denies chest pain. Headache Nasal Congestion Reason Comments Cough Reason Comments Psychiatric Evaluation Specialty Diagnoses / Procedures Referred By Contyuan t Referred To Contact Behavioral Health Diagnoses KELI (generalized anxiety disorder) ([facility]) Procedures SD OFFICE/OUTPATIENT [facility] Rosario Escamilla NP [address] [place] [address] Phone: tel: fax: Kayla Narvaez NP [address] [place] [address] Phone: tel: fax: Referral ID Status Reason Start Date Expiration Date V isits Requested Visits Authorized [id number] Closed Specialty Services Required 04/13/2024 10/10/2024 1 [...] Care Teams (unrecognized sec tion and content) Instrument Worker Relationship Specialty Start Date End Date Baldemar Galvan MD [address] [place] [address] PCP - General Family Medicine 10/23/22 Instrument Worker Relationship Specialty Start Date End Date Luciano Cardona MD PCP - General Family Medicine 12/09/22 Rosario Escamilla NP [address] [place] [phone] Referring Physician Nurse Practitioner 12/09/22 Team Status: Inactive Member Role Status Dates Rosario Escamilla Attending Provider Active Start: September 23, 2023 End: September 23, 2023 Instrument Worker Relationship Specialty Start Date End Date Luciano Cardona MD [address] [place] [phone] PCP - General Family Medicine 09/21/23 Rosario Escamilla NP [address] [place] [phone] Referring Physician Nurse Practitioner 12/09/22 Instrument Worker Relationship Specialty Start Date End Date Luciano Cardona MD [address] [place] [phone] PCP - General Family Medicine 09/21/23 Rosario Escamilla NP [address] [place] [phone] Referring Physician Nurse Practitioner 12/09/22 Instrument Worker Relationship Specialty Start Date End Date Luciano Cardona MD [address] [place] [phone] PCP - General Family Medicine 09/21/23 Rosario sEcamilla NP [address] [place] [phone] Referring Physician Nurse Practitioner 12/09/22 Instrument Worker Relationship Specialty Start Date End Date Luciano Cardona MD [address] [place] [phone] PCP - General Family Medicine 09/21/23 Montana Franklin [place] [facility] [place] [address] PCP [facility] 02/23/24 Rosario Escamilla NP [address] [place] [phone] Referring Physician Nurse Practitioner 12/09/22 Instrument Worker Relationship Specialty Start Date End Date Luciano Cardona MD [address] [place] [phone] PCP - General Family Medicine 09/21/23 Montana Franklin DO [facility] [place], [place] [id number] PCP [facility] 02/23/24 Rosario Escamilla, SAROJ [address] [place] [phone] Referring Physician Nurse Practitioner 12/09/22 Instrument Worker Relationship Specialty Start Date End Date Luciano Cardona MD [address] [place] [phone] PCP - General [facility] 09/21/23 Montana Franklin DO [facility] [place] [address] [facility] 02/23/24 Rosario Escamilla NP [address] [place] [phone] Referring Physician Nurse Practitioner 12/09/22 Instrument Worker Relationship Specialty Start Date End Date Luciano Cardona MD [address] [place] [phone] PCP - General [facility] 09/21/23 Montana Franklin [place] [facility] [place] [address] PCP [facility] 02/23/24 Rosario Escamilla NP [address] [place] [address] Referring Physician Nurse Practitioner 12/09/22 Instrument Worker Relationship Specialty Start Date End Date Luciano Cardona MD [address] [place] [address] PCP - General Family Medicine 09/21/23 Montana Franklin [place] [facility] [place] [address] PCP - [facility] 02/23/24 Rosario Escamilla, SAROJ [address] [place] [address] Referring Physician Nurse Practitioner 12/09/22 Instrument Worker Relationship Specialty Start Date End Date Luciano Cardona MD [address] [place] [phone] PCP - [facility] 09/21/23 Montana Franklin DO [facility] [place] [address] PCP - [facility] 02/23/24 Rosario Escamilla, SAROJ [address] [place] [address] Referring Physician Nurse Practitioner 12/09/22 Instrument Worker Relationship Specialty Start Date End Date Luciano Cardona MD [address] [place] [address] PCP - [facility] 09/21/23 Montana Franklin [place] [facility] [place] [address] PCP - [facility] 02/23/24 Rosario Escamilla, PLATE FITTER [address] [place] [address] Referring Physician Nurse Practitioner 12/09/22 Instrument Worker Relationship Specialty Start Date End Date Luciano Cardona MD [address] [place] [phone] PCP - General Family Medicine 09/21/23 Montana Franklin [place] [facility] [place] [address] PCP [facility] 02/23/24 Rosario Escamilla NP [address] [place] [address] Referring Physician Nurse Practitioner 12/09/22 Instrument Worker Relationship Specialty Start Date End Date Luciano Cardona MD [address] [place] [phone] PCP - General [facility] 09/21/23 Rosario Escamilla NP [address] [place] [address] Referring Physician Nurse Practitioner 12/09/22 Instrument Worker Relationship Specialty Start Date End Date Luciano Cardona MD [address] [place] [phone] PCP - [facility] 09/21/23 Montana Franklin DO [facility] [place], [place] [id number] [facility] 02/23/24 Rosario Escamilla NP [address] [place] [phone] Referring Physician Nurse Practitioner 12/09/22 Instrument Worker Relationship Specialty Start Date End Date Luciano Cardona MD [address] [place] [phone] PCP - General Family [facility] 09/21/23 Montana Franklin DO [address] [place] [address] Dr [place], [place] [phone] [facility] 02/23/24 Rosario Escamilla NP [address] [place] [phone] Referring Physician Nurse Practitioner 12/09/22 Instrument Worker Relationship Specialty Start Date End Date Luciano Cardona MD [address] [place] [phone] PCP - General Family Medicine 09/21/23 Rosario Escamilla NP [address] [place] [phone] Referring Physician Nurse Practitioner 12/09/22 Instrument Worker Relationship Specialty Start Date End Date Luciano Cardona MD [address] [place] [phone] PCP - General Family [facility] 09/21/23 Rosario Escamilla NP [address] [place] [phone] Referring Physician Nurse Practitioner 12/09/22 Instrument Worker Relationship Specialty Start Date End Date Luciano Cardona MD [address] [place] [phone] PCP - General [facility] 09/21/23 Montana Franklin DO [address] [place] [address] [place] [address] PCP [facility] 02/23/24 Rosario Escamilla NP [address] [place] [phone] Referring Physician Nurse Practitioner 12/09/22 Instrument Worker Relationship Specialty Start Date End Date Luciano Cardona MD [address] [place] [phone] PCP - [facility] 09/21/23 Montana Franklin DO [address] [place] [address] [place] [address] [facility] 02/23/24 Rosario Escamilla NP [address] [place] [phone] Referring Physician Nurse Practitioner 12/09/22 Goals (unrecognized [...] BE BASED ON THE PRIMARY CLINICAL RECORDS. [employer] [facility]. provides no warranty or guarantee of the accuracy or completeness of information in this document.
== END 2024-06-06 20:01 | disposition home or self-care (01) ==
LOC: SLEEP 06-07 07:39
PROVIDERS: PCP Obstetrics & Gynecology; Visit Provider Obstetrics & Gynecology
DX: G47.33 Obstructive sleep apnea (adult) (pediatric) (principal); Z92.29 Personal history of other drug therapy; G25.81 Restless legs syndrome; R53.82 Chronic fatigue, unspecified
CPT/HCPCS: 36415; 80053; 80061; 84439; 84443; 85025; 95810

== ENCOUNTER 2024-06-06 20:54 | Outpatient (OUT) | payer OTHER, SELFPAY ==
[2024-06-06 10:29] LABS: Basophils Absolute Auto 0.1 10^3/uL (0.0-0.1); Basophils Percent Auto 0.6 % (0.2-2.0); Eosinophils Absolute Auto 0.2 10^3/uL (0.0-0.7); Hematocrit 39.5 % (36.0-48.0); Hemoglobin 13.3 g/dL (12.0-16.0); Immature Granulocytes Abs Auto 0.02 10^3/uL (0.00-0.03); Immature Granulocytes Pct Auto 0.3 % (0.0-0.5); Lymphocytes Absolute Auto 2.2 10^3/uL (1.2-3.8); Lymphocytes Percent Auto 27.7 % (20.5-60.0); Mean Corpuscular HGB Conc 33.7 g/dL (29.9-35.2); Mean Corpuscular Hemoglobin 31.1 pg (26.7-34.0); Mean Corpuscular Volume 92.3 fL (81.0-99.0); Mean Platelet Volume 10.7 fL (9.5-13.5); Monocytes Absolute Auto 0.6 10^3/uL (0.3-0.8); Monocytes Percent Auto 7.9 % (1.7-12.0); Neutrophils Absolute Auto 4.8 10^3/uL (1.4-6.5); Neutrophils Percent Auto 61.5 % (43.0-75.0); Platelet Count 213 10^3/uL (150-450); Red Blood Count 4.28 10^6/uL (4.20-5.40); Red Cell Distribution Width 12.2 % (11.0-15.0); White Blood Count 7.9 10^3/uL (4.0-11.0)
[2024-06-06 11:15] LABS: Alanine Aminotransferase 17 U/L (14-59); Albumin Globulin Ratio 1.2; Albumin Level 3.7 g/dL (3.4-5.0); Alkaline Phosphatase 87 U/L (46-116); Anion Gap 11.6; Aspartate Amino Transferase 11 U/L (15-37); BUN Creatinine Ratio 9.2; Bilirubin Total 0.2 mg/dL (0.2-1.0); Calcium 8.5 mg/dL (8.5-10.1); Carbon Dioxide 27.5 mmol/L (21.0-32.0); Chloride 104 mmol/L (98-107); Chol HDL Ratio 3.1; Cholesterol 153 mg/dL (<=200); Estimated GFR (African America >60 (>=60 mL/min/1.73m^2); Estimated GFR (Non-African Ame >60 (>=60 mL/min/1.73m^2); Glucose 90 mg/dL (74-106); HDL Cholesterol 49 mg/dL (40-60); LDL Cholesterol Calculated 88.6 mg/dL; Potassium 4.1 mmol/L (3.5-5.1); Sodium 139 mmol/L (136-145); Thyroid Stimulating Hormone 3.838 uIU/mL (0.358-3.740); Total Protein 6.7 g/dL (6.4-8.2); Triglycerides 77 mg/dL (<=150); VLDL CHOLESTEROL 15.4 mg/dL
--- OUTSIDE RECORDS SUMMARY | 2024-06-06 20:57 | XMS_ITS | CCD ---
Author Organization [facility] [employer] Care Team Providers Care Cab Starter Name Role Phone Lissette Lee Unavailable Lissette Shin Unavailable AICHHOLZ, VIDEO EFFECTS EDITOR ROSARIO Admitting Unavailable AICHHOLZ, VIDEO EFFECTS EDITOR ROSARIO Attending Unavailable AICHHOLZ, VIDEO EFFECTS EDITOR ROSARIO Primary Care Unavailable AICHHOLZ, VIDEO EFFECTS EDITOR ROSARIO Consulting Unavailable AICHHOLZ, VIDEO EFFECTS EDITOR ROSARIO Admitting Unavailable AICHHOLZ, VIDEO EFFECTS EDITOR ROSARIO Attending Unavailable AICHHOLZ, VIDEO EFFECTS EDITOR ROSARIO Primary Care Unavailable AICHHOLZ, VIDEO EFFECTS EDITOR ROSARIO Consulting Unavailable AICHHOLZ, VIDEO EFFECTS EDITOR ROSARIO Admitting Unavailable AICHHOLZ, VIDEO EFFECTS EDITOR ROSARIO Attending Unavailable AICHHOLZ, VIDEO EFFECTS EDITOR ROSARIO Primary Care Unavailable AICHHOLZ, VIDEO EFFECTS EDITOR ROSARIO Consulting Unavailable AICHHOLZ, VIDEO EFFECTS EDITOR ROSARIO Primary Care Unavailable ROBERT ONTIVEROS Consulting Unavailable ROBERT ONTIVEROS Admitting Unavailable ROBERT ONTIVEROS Attending Unavailable AICHHOLZ, VIDEO EFFECTS EDITOR ROSARIO Primary Care Unavailable MARICEL .GUSTAVOID Admitting Unavailable MARICEL .GUSTAVOID Attending Unavailable MARICEL ., CAROLYNN Consulting Unavailable AICHHOLZ, VIDEO EFFECTS EDITOR ROSARIO Primary Care Unavailable MARICEL .GUSTAVOID Admitting Unavailable MARICEL .GUSTAVOID Attending Unavailable MARICEL ., CAROLYNN Consulting Unavailable AICHHOLZ, VIDEO EFFECTS EDITOR ROSARIO Primary Care Unavailable DR MARCY GU Admitting Unavailable DR MARCY GU Attending Unavailable Vikas Roman Consulting Unavailable DR MARCY GU Consulting Unavailable AICHHOLZ, VIDEO EFFECTS EDITOR ROSARIO Admitting Unavailable AICHHOLZ, VIDEO EFFECTS EDITOR ROSARIO Attending Unavailable AICHHOLZ, VIDEO EFFECTS EDITOR ROSARIO Primary Care Unavailable AICHHOLZ, VIDEO EFFECTS EDITOR ROSARIO Consulting Unavailable AICHHOLZ, VIDEO EFFECTS EDITOR ROSARIO Admitting Unavailable AICHHOLZ, VIDEO EFFECTS EDITOR ROSARIO Attending Unavailable AICHHOLZ, VIDEO EFFECTS EDITOR ROSARIO Primary Care Unavailable AICHHOLZ, VIDEO EFFECTS EDITOR ROSARIO Consulting Unavailable Unavailable Primary Care Provider Unavailjessica Galvan MD, Baldemar Primary Care Provider Luciano Cardona MD Primary Care Provider Aicsally REEL SLITTER, Rosario Unavailable Unavailable Primary Care Provider UnavailRosario Black Attending Unavailable Rosario Escamilla Admitting Unavailable Rosario Escamilla Attending Provider Francine REEL SLITTER, Rosario Unavailable Luciano Cardona MD Primary Care Provider [phone] Rigoberto DO, [place] Unavailable RIGOBERTO, [place] Attending Unavailable RIGOBERTO, [place] Attending Unavailable FAUZIA, VONDA Attending Unavailable FAUZIA, VONDA Attending Unavailable RIGOBERTO, [place] Attending Unavailable AICHHOLZ, ROSARIO Attending Unavailable RIGOBERTO, [place] Attending Unavailable MILAGROS LEYVA Attending Unavailable RIGOBERTO, [place] Attending Unavailable AICHHOLZ, ROSARIO Attending Unavailable AICHHOLZ, ROSARIO Attending Unavailable AICHHOLZ, ROSARIO Attending Unavailable AICHHOLZ, ROSARIO Attending Unavailable AICHHOLZ, ROSARIO Attending Unavailable FAUZIA, VONDA Attending Unavailable AICHHOLZ, ROSARIO Attending Unavailable AICHHOLZ, ROSARIO Attending Unavailable JEFRY PEDRAZA Attending Unavailab le DAVIDHSHU, ROSARIO Referring Unavailable JEFRY PEDRAZA Attending Unavailab le NO PCP, NO PCP Primary Care Unavailable ROSALIE FOSTER Attending Unavailable TIESHA SPENCER Attending Unavailable ROSALIE FOSTER Attending Unavailable Medications Current Medications Medication Drug Class(es) Dates Sig (Normalized) Sig (Original) acetaminophen 500 mg oral tablet (13 sources) Start: 05-31-2024 take 4000 mg by mouth every twenty-four hours 1,000 mg, Oral, ONCE, 1 dose, On Thu05/31/24 at 2145, Maximum dose of acetaminophen is 4000 mg from all sources in 24 hours. Start: 09-10-2023 acetaminophen (TYLENOL) tablet 650 mg Start: 10-23-2022 acetaminophen (TYLENOL) tablet 650 mg take 2 tablets by [facility] every six hours as needed for pain acetaminophen (TYLENOL) 325 MG tablet Take 2 tablets by mouth every 6 hours as needed for Pain Active acetaminophen (T ylenol) 325 MG tablet Take 500 mg by mouth every 4 (four) hours if needed for mild pain 0 Active take 1 tablet by emily th every eight hours as needed for pain acetaminophen (Midol) 650 MG ER tablet Take 650 mg by mouth every 8 (eight) hours if needed for mild pain Do not crush, chew, or split. 0 Active acetaminophen 325 mg / HYDROcodone [...] ORCO) 5-325 MG per tablet 1 tablet [id number] 200 actuat albuterol 0.09 mg/actuat metered dose inhaler (1 source) beta2-Adrenergic Agonist Start: 12-22-2021 take 2 puff(s) by inhalation every four to six hours as needed Albuterol Sulfate HFA 108 (90 Base) MCG/ACT 2 puffs as needed Inhalation every 4-6 hours for 14 days Nov, Active amoxicillin 875 mg / clavulanate 125 mg oral tablet (11 sources) Penicillin-class Antibacterial Start: 04-28-2024 End: 05-08-2024 take 1 tablet by mouth in the morning amoxicillin-clavu lanate (Augmentin) 875-125 MG tablet Indications: Acute non-recurrent pansinusitis Take 1 tablet (875 mg) by mouth in the morning and 1 tablet (875 mg) before bedtime. Do all this for 10 days. Take with food. 20 tablet 04/28/2024 05/08/2024 Active Start: 02-18-2024 End: 03-02-2024 take 1 tablet by mouth in the morning amoxicillin-clavulanate (Augmentin) 875-125 MG tablet Indications: Subacute maxillary sinusitis , Non-recurrent acute suppurative otitis media of right ear without spontaneous rupture of tympanic membrane Take 1 tablet (875 mg) by mouth in the morning and 1 tablet (875 mg) before bedtime. Do all this for 10 days. Take with food. 20 tablet 02/18/2024 03/02/2024 Discontinued (Therapy completed) Start: 10-22-2022 End: 11-01-2022 take 1 tablet by mouth twice daily amoxicillin-clavulanate (AUGMENTIN) 875-125 MG per tablet Take 1 tablet by mouth 2 times daily for 10 days 20 tablet 0 10/22/2022 11/01/2022 Active ARIPiprazole 5 mg oral tablet (2 sources) Atypical Antipsychotic Start: 05-23-2024 End: 06-22-2024 take 1 tablet by mouth once daily ARIPiprazole (Abilify) 5 MG tablet Indications: Bipolar 1 disorder (CMS/HCC) Take 1 tablet (5 mg) by mouth Daily 30 tablet 05/23/2024 06/22/2024 Active azithromycin 250 mg oral tablet (1 source) Macrolide Antimicrobial Start: 04-22-2024 End: 05-02-2024 azithromycin (ZITHROMAX) 250 MG tablet 500mg on day 1 followed by 250mg on days 2 - 5 6 tablet 04/22/2024 05/02/2024 Active benzonatate 200 mg oral capsule (1 source) Non-narcotic Antitussive Start: 02-04-2024 End: 02-14-2024 take 1 capsule by mouth three times daily as needed for cough benzonatate (TESSALON) 200 MG capsule Take 1 capsule by mouth 3 times daily as needed for Cough 30 capsule 02/04/2024 02/14/2024 Active brompheniramine maleate 0.4 mg/ml / dextromethorphan hydrobromide 2 mg/ml / pseudoephedrine hydrochloride 6 mg/ml oral solution (5 sources) alpha-Adrenergic Agonist, Uncompetitive M-wqoiqu-A-aspartat e Receptor Antagonist, Sigma-1 Agonist Start: 04-28-2024 End: 05-05-2024 take 5 mL by mouth four times daily as needed for cough brompheniramine-p seudoephedrine-DM 30-2-10 MG/5ML syrup Indications: Acute non-recurrent pansinusitis Take 5 mL by mouth 4 (four) times a day as needed for congestion or cough for up to 7 days 140 mL 04/28/2024 05/05/2024 Active cetirizine hydrochloride 10 mg oral tablet (4 sources) Histamine-1 Receptor Antagonist Start: 04-22-2024 take 1 tablet by mouth once daily cetirizine (ZYRTEC) 10 MG tablet Take 1 tablet by mouth daily 30 tablet 04/22/2024 Active Start: 02-04-2024 End: 02-18-2024 take 1 tablet by mouth once daily cetirizine (ZYRTEC) 10 MG tablet Take 1 tablet by mouth daily for 14 days 14 tablet 02/04/2024 02/18/2024 Active Start: 06-04-2021 take 1 tablet by emily th every twelve hours Cetirizine HCl 10 MG 1 tablet Orally Twice a day for 30 day(s) May, Active dextromethorphan hydrobromide 3 mg/ml / promethazine hydrochloride 1.25 mg/ml oral solution (1 source) Phenothiazine, Uncompetitive U-sdbnkz-U-aspartate Receptor Antagonist, Sigma-1 Agonist Start: 04-22-2024 End: 05-02-2024 promethazine-dextromethorpha n (PROMETHAZINE-DM) 6.25-15 MG/5ML syrup Take 5 mLs by mouth 4 times daily as needed for Cough 200 mL 04/22/2024 05/02/2024 Active DULoxetine 60 mg delayed release oral capsule (20 sources) Serotonin and Norepinephrine Reuptake Inhibitor Start: 05-21-2023 End: 05-27-2024 take 1 capsul e by mouth in the mornin g DULoxetine (Cymbalta) [address] capsule Indications: KELI (generalized anxiety disorder) (CMS/HCC) Take 1 capsule (60 mg) by mouth in the morning. 30 capsule 3 04/27/2024 05/27/2024 Active famotidine 20 mg oral tablet (3 sources) Histamine-2 Receptor Antagonist Start: 02-04-2024 End: 02-18-2024 take 1 tablet by mouth once daily famotidine (PEPCID) 20 MG tablet Take 1 tablet by mouth daily for 14 days 14 tablet 02/04/2024 Active fluticasone propionate 0.05 mg/actuat metered dose nasal spray (7 sources) Corticosteroid Start: 06-04-2021 take 1 spray( s) nasal route twice daily Flonase Allergy Relief 50 MCG/ACT 1 spray in each nostril Nasally twice a day for 30 day(s) May, Active Fluticasone Prop ionate (FLONASE NA) by Nasal route Active Fluticasone Prop ionate (FLONASE NA) by Nasal route 0 Active gabapentin 300 mg oral capsule (20 sources) Anti-epileptic Agent Start: 05-21-2023 End: 05-27-2024 take 1 capsule by mouth in the morning gabapentin (Neurontin) 300 MG capsule Indications: Fibromyalgia Take 1 capsule (300 mg) by mouth in the morning and 1 capsule (300 mg) before bedtime. 60 capsule 3 04/27/2024 05/27/2024 Active ibuprofen 400 mg oral tablet (4 sources) Nonsteroidal Anti-inflammatory Drug Start: 05-26-2023 take 1 tablet by mouth every six hours as needed for pain ibuprofen (IBU) 400 MG tablet Take 1 tablet by mouth every 6 hours as needed for Pain 20 tablet 05/26/2023 Active levonorgestrel 0.980371 mg/hr intrauterine system (20 sources) Progestin, Progestin-containin g Intrauterine Device Start: 09-28-2023 End: 09-26-2028 Levonorgestrel intrauterine device 52 mg Levonorgestrel ( MIRENA, 52 MG, IU) by Intrauterine route Active meclizine hydrochloride 25 mg oral tablet (3 sources) Antiemetic Start: 02-11-2024 End: 02-18-2024 take 1 tablet by mouth three times daily as needed for dizziness meclizine (Antivert) 25 MG tablet Indications: Dizziness and giddiness Take 1 tablet (25 mg) by mouth 3 (three) times a day as needed for dizziness for up to 5 days 15 tablet 02/11/2024 02/18/2024 Active methylPREDNISolone (5 sources) Corticosteroid Start: 04-28-2024 End: 05-05-2024 methylPREDNISolone (Medrol Dospak) 4 MG tablets Indications: Acute non-recurrent pansinusitis Follow schedule on package instructions 21 tablet 04/28/2024 05/05/2024 Active ondansetron 4 mg disintegrating oral tablet (4 sources) Serotonin-3 Receptor Antagonist Start: 05-26-2023 take 1 tablet by mouth three times daily as needed for nausea ondansetron (ZOFRAN-ODT) 4 MG disintegrating tablet Take 1 tablet by mouth 3 times daily as needed for Nausea or Vomiting 20 tablet 05/26/2023 Active phentermine hydrochloride 37.5 mg oral tablet (20 sources) Sympathomimetic Amine Anorectic Start: 04-13-2024 End: 05-23-2024 take 35-35.9 tablets by mouth before mealtime phentermine (Adipex-P) 37.5 MG tablet Indications: Class 2 obesity due to excess calories without serious comorbidity with body mass index (BMI) of 35.0 to 35.9 in adult Take 1 tablet (37.5 mg) by mouth in the morning. Take before meals. 30 tablet 04/13/2024 05/23/2024 Discontinued Start: 01-07-2024 End: 03-06-2024 take 1 tablet by mouth before mealtime phentermine (Adipex-P) 37.5 MG tablet Indications: Abnormal weight gain , Class 2 obesity due to excess calories without serious comorbidity in adult, unspecified BMI Take 1 tablet (37.5 mg) by mouth in the morning. Take before meals. 30 tablet 02/05/2024 03/06/2024 Active rOPINIRole 2 mg oral tablet (1 [...] capsule 0 06/23/2023 07/08/2023 Discontinued (Therapy completed) cyclobenzaprine hydrochloride 10 mg oral tablet (14 sources) Muscle Relaxant Start: 03-02-2024 End: 03-12-2024 cyclobenzaprine (Flexeril) 10 MG tablet Indications: Fibromyalgia Take 1 tablet (10 mg) by mouth as needed at bedtime for muscle spasms for up to 10 days Discontinue the tizanidine script d/t lack of supply at pharmacy 10 tablet 03/02/2024 Active dexamethasone phosphate 10 mg/ml injectable solution (1 source) Corticosteroid Start: 04-22-2024 End: 04-22-2024 take 6 mg by mouth once 6 mg, Oral, ONCE, On Thu04/22/24 at 1545, For 1 dose 1 ml diphenhydrAMINE hydrochloride 50 mg/ml cartridge (4 sources) Histamine-1 Receptor Antagonist Start: 10-22-2022 End: 10-23-2022 diphenhydrAMINE (BENADRYL) injection 25 mg take 1 capsule by mo [facility] every six hours as needed diphenhydrAMINE (BENADRYL) 25 MG capsule Take 1 capsule by mouth every 6 hours as needed for Itching Active 1 ml haloperidol 5 mg/ml injection (1 source) Typical Antipsychotic Start: 10-23-2022 End: 10-23-2022 haloperidol lactate (HALDOL) injection 2 mg 1 ml ketorolac tromethamine 30 mg/ml cartridge (1 source) Nonsteroidal Anti-inflammatory Drug, Cyclooxygenase Inhibitor Start: 10-22-2022 End: 10-22-2022 ketorolac (TORADOL) injection 30 mg LORazepam 0.5 mg oral tablet (20 sources) Benzodiazepine Start: 09-21-2023 End: 05-02-2024 take 1 tablet by mouth once daily as needed for anxiety LORazepam (Ativan) 0.5 MG tablet Indications: Anxiety Take 1 tablet (0.5 mg) by mouth Daily as needed for anxiety 15 tablet 2 09/21/2023 05/02/2024 Discontinued (Therapy completed) Start: 05-21-2023 take 1 tablet by mouth once LO Razepam (Ativan) 0.5 MG tablet Indications: KELI (generalized anxiety disorder) (CMS/[facility]) Take 1 tablet (0.5 mg) by mouth every 12 (twelve) hours if needed for anxiety 15 tablet 2 05/21/2023 Active promethazine hydrochloride 25 mg oral tablet (1 source) Phenothiazine Start: 10-22-2022 End: 10-22-2022 promethazine (PHENERGAN) tablet 25 mg 50 ml sodium chloride 9 mg/ml injection (2 sources) Start: 10-22-2022 End: 10-23-2022 0.9 % sodium chloride bolus tiZANidine 4 mg oral tablet (3 sources) Central alpha-2 Adrenergic Agonist Start: 03-02-2024 End: 03-16-2024 tiZANidine (Zanaflex) 4 MG tablet Indications: Fibromyalgia Take 1 tablet (4 mg) by mouth as needed at bedtime for muscle spasms for up to 14 days 14 tablet 03/02/2024 03/02/2024 Discontinued (Therapy completed) Problems Active Problems Problem Classification Problem Date Documented Da te Episodic/Chronic Anxiety disorders (20 sources) Generalized anxiety disorder; Translations: [Generalized anxiety disorder] Onset: 3 05-20-2023 Chronic Coagulation and hemorrhagic disorders (20 sources) Thrombocytopenic disorder; Translations: [Thrombocytopenia, unspecified] Onset: 4 09-21-2023 Chronic Headache; including migraine (1 source) Migraine without aura, not refractory ; Translations: [Migraine without aura, not intractable, with status migrainosus] Chronic Headache; including migraine (1 source) Headache; Translations: [Nonintractable headache, unspecified chronicity pattern, unspecified headache type] Episodic Malaise and fatigue (20 sources) Fatigue; Translations: [Chronic fatigue, unspecified] Onset: 4 10-26-2023 Chronic Menstrual disorders (2 sources) Menometrorrhagia; Translations: [Excessive and frequent menstruation with irregular cycle] 07-08-2023 Chronic Miscellaneous mental health disorders (5 sources) Insomnia disorder related to another mental disorder; Translations: [Insomnia due to other mental disorder] Onset: 4 05-02-2024 Chronic Mood disorders (2 sources) Bipolar I disorder; Translations: [Bipolar disorder, unspecified] 05-23-2024 Chronic Other female genital disorders (2 sources) Vaginal discharge; Translations: [Other specified noninflammatory disorders of vagina] 04-12-2024 Episodic Other gastrointestinal disorders (2 sources) Diarrhea; Translations: [Diarrhea, unspecified] Episodic Other hereditary and degenerative nervous system conditions (20 sources) Restless legs; Translations: [Restless legs syndrome] Onset: 4 09-21-2023 Chronic Other lower respiratory disease (1 source) Lower respiratory tract infection; Translations: [Unspecified acute lower respiratory infection] 04-22-2024 Episodic Other lower respiratory disease (1 source) Unspecified acute lower respiratory infection; Translations: [Unspecified acute lower respiratory infection] Onset: 4 Episodic Other nutritional; endocrine; and metabolic disorders (20 sources) Obesity caused by energy imbalance; Translations: [Other obesity due to excess calories] Onset: 3 05-21-2023 Chronic Other upper respiratory disease (1 source) Congestion of nasal sinus; Translations: [Nasal congestion] Episodic Other upper respiratory infections (20 sources) Sore throat symptom; Translations: [Acute pharyngitis, unspecified] Onset: 2 Resolved: 4 Episodic Residual codes; unclassified (1 source) Acquired absence of other specified parts of digestive tract; Translations: [ACQ ABSENCE OTH PART DIGESTV TRACT] Onset: 3 Episodic Residual codes; unclassified (2 sources) H/O: high risk medication; Translations: [Personal history of other drug therapy] 05-23-2024 Episodic Substance-related disorders (20 sources) Nicotine dependence, cigarettes, uncomplicated; Translations: [Tobacco dependence syndrome] Onset: 2 12-09-2023 Chronic Systemic lupus erythematosus and connective tissue disorders (20 sources) Lupus erythematosus; Translations: [Systemic lupus erythematosus, unspecified] Onset: 9 05-20-2023 Chronic Unclassified (4 sources) CONTACT W/AND (SUSP) EXPOS COVID-19; Translations: [CONTACT W/AND (SUSP) EXPOS COVID-19] Onset: 2 Unclassified (2 sources) Positive For Covid-19; Translations: [Positive For Covid-19] Onset: 4 Viral infection (1 source) COVID-19; Translations: [COVID-19] Onset: 4 Past or Other Problems Problem Classification Problem Date Documented Date Episodic/Chronic Abdominal pain (9 sources) Unspecified abdominal pain; Translations: [Pain in female pelvis] Onset: 12-24-2021 Episodic Allergic reactions (1 source) Unspecified contact dermatitis, unspecified cause; Translations: [UNS CONTACT DERMATITIS UNS CAUSE] Onset: 02-10-2022 Episodic Conditions associated with dizziness or vertigo (20 sources) Dizziness and giddiness; Translations: [Dizziness and giddiness] Onset: 02-11-2024 02-11-2024 Episodic Contraceptive and procreative management (20 sources) Intrauterine contraceptive device in situ; Translations: [Encounter for routine checking of intrauterine contraceptive device] Onset: 10-26-2023 Resolved: 04-28-2024 10-26-2023 Episodic Fever of unknown origin (2 sources) Fever, unspecified; Translations: [FEVER UNSPECIFIED] Onset: 12-22-2021 Resolved: 12-22-2021 Episodic Fluid and electrolyte disorders (1 source) Dehydration; Translations: [DEHYDRATION] Onset: 05-05-2022 Episodic Genitourinary symptoms and ill-defined conditions (20 sources) Unspecified abnormal findings in urine; Translations: [Urinary symptoms ] Onset: 12-31-2021 Resolved: 03-30-2024 Episodic Immunizations and screening for infectious disease (1 source) Contact with and (suspected) exposure to other viral communicable diseases Onset: 06-04-2021 Resolved: 06-04-2021 Episodic Malaise and fatigue (5 sources) Other fatigue; Translations: [OTHER FATIGUE] Onset: 12-22-2021 Resolved: 12-22-2021 Episodic Nausea and vomiting (4 sources) Nausea with vomiting, unspecified; Translations: [NAUSEA WITH VOMITING UNSPECIFIED] Onset: 05-01-2022 Episodic Other connective tissue disease (4 sources) Myalgia, unspecified site; Translations: [MYALGIA UNSPECIFIED SITE] Onset: 04-23-2022 Episodic Other connective tissue disease (20 sources) Fibromyalgia; Translations: [Fibromyalgia] Onset: 05-21-2023 05-21-2023 Episodic Other inflammatory condition of skin (20 sources) Itching of ear; Translations: [Pruritus, unspecified] Onset: 05-21-2023 Resolved: 04-28-2024 05-21-2023 Episodic Other nutritional; endocrine; and metabolic disorders (20 sources) Abnormal weight gain; Translations: [Abnormal weight gain] Onset: 12-09-2023 Resolved: 04-28-2024 12-09-2023 Episodic Other screening for suspected conditions (not mental disorders or infectious disease) (1 source) Other specified abnormal findings of blood chemistry; Translations: [OTH SPEC ABNORMAL FINDINGS BLD CHEM] Onset: 01-01-2022 Episodic Other skin disorders (3 sources) Rash and other nonspecific skin eruption; Translations: [RASH OTH NONSPECIFIC SKIN ERUPTION] Onset: 02-08-2022 Episodic Otitis media and related conditions (20 sources) Other acute nonsuppurative otitis media, bilateral; Translations: [Acute suppurative otitis media without spontaneous rupture of ear drum] Onset: 06-04-2021 Resolved: 03-30-2024 Episodic Unclassified (1 source) Cough R05.9 Onset: 12-22-2021 Resolved: 12-22-2021 Unclassified (1 source) CONTACT W/AND (SUSP) EXPOS COVID-19; Translations: [CONTACT W/AND (SUSP) EXPOS COVID-19] Onset: 05-20-2022 Urinary tract infections (2 sources) Urinary tract infection, site not specified; Translations: [Acute cystitis without hematuria] Onset: 12-26-2021 Episodic Viral infection (20 sources) Viral infection, unspecified; Translations: [Viral disease] Onset: 05-05-2022 Resolved: 04-28-2024 Episodic Results Test Name Value Interpretation Reference Range Facility COVID-19, Rapidon 05-31-2024 SARS-CoV-2 (COVID-19) RdRp gene AMPARO+probe Ql (Resp) Not detected Not Detected [facility] Comment on above: Rapid NAAT: The specimen [...] the sole basis for patient management decisions. Methodology: Isothermal Nucleic Acid Amplification Specimen Description .NASOPHARYNGEAL SWAB [facility] Flu A/B Ag Detectionon 05-31 Flu A Ag Detection Negative Normal NEG [facility] Comment on above: Result Comment: for Influenza A Antigen Performed By: #### F LUABA #### [address] [place] [address] Loading Unit Operator Powder Charging: Taran De Los Santos MD Flu B Ag Detection Negative Normal NEG [facility] Comment on above: Result Comment: for Influenza B Antigen. Performed By: #### F LUABA #### [address] [place] [address] Loading Unit Operator Powder Charging: Taran De Los Santos MD Rapid influenza A/B antigens on 05-31-2024 FLUAV Ag Ql (Unsp spec) Negative NEGATIVE [facility] Comment on above: for Influenza A Anti gen FLUBV Ag Ql (Unsp spec) Negative NEGATIVE [facility] Comment on above: for Influenza B Anti gen. [facility] [id number] 05-31-2024 SARS-CoV-2 (COVID-19) RNA AMPARO+probe Ql (Unsp spec) Not detected Normal NOTDET [facility] Comment on above: Result Comment: Rapid NAAT: [...] the sole basis for patient management decisions. Methodology: Isothermal Nucleic Acid Amplification Performed By: #### C OVRB #### [facility] [address] [place] [address] [place] [address] Loading Unit Operator Powder Charging: Taran De Los Santos MD XR CHEST (2 VW)on 04-22-2024 XR CHEST (2 VW) EXAMINATION: TWO XRAY VIEWS OF THE CHEST 04/22/2024 3:12 pm COMPARISON: Chest radiograph performed 02/08/2024. HISTORY: ORDERING SYSTEM PROVIDED HISTORY: cough x 10 days TECHNOLOGIST PROVIDED HISTORY: cough x 10 days FINDINGS: There is no acute consolidation or effusion. There is no pneumothorax. The mediastinal structures are unremarkable. The upper abdomen is unremarkable. The extrathoracic soft tissues are unremarkable. There is no acute osseous abnormality. IMPRESSION: No acute cardiopulmonary process. Interpreted by: Lenin Hewitt MD Signed by: Lenin Hewitt MD 04/22/24 Final result Normal [facility] XR Chest 2 Viewson No acute cardiopulmonary process. [facility] RIS CONSOLIDATED EXAMINATION: TWO XRAY VIEWS OF THE CHEST 04/22/2024 3:12 pm COMPARISON: Chest radiograph performed 02/08/2024. HISTORY: ORDERING SYSTEM PROVIDED HISTORY: cough x 10 days TECHNOLOGIST PROVIDED HISTORY: cough x 10 days FINDINGS: There is no acute consolidation or effusion. There is no pneumothorax. The mediastinal structures are unremarkable. The upper abdomen is unremarkable. The extrathoracic soft tissues are unremarkable. There is no acute osseous abnormality. MHPN RIS CONSOLIDATED Lenin Hewitt MD - 04/22/2024 EXAMINATION: TWO XRAY VIEWS OF THE CHEST 04/22/2024 3:12 pm COMPARISON: Chest radiograph performed 02/08/2024. HISTORY: ORDERING SYSTEM PROVIDED HISTORY: cough x 10 days TECHNOLOGIST PROVIDED HISTORY: cough x 10 days FINDINGS: There is no acute consolidation or effusion. There is no pneumothorax. The mediastinal structures are unremarkable. The upper abdomen is unremarkable. The extrathoracic soft tissues are unremarkable. There is no acute osseous abnormality. IMPRESSION: No acute cardiopulmonary process. [facility] Radiology Study observation (narrative) [facility] XR Chest 2 ViewsOrdered By: Lenin Hewitt on 04-22-2024 [facility] Work Phone: No Panel Informationon 04-13 STAPHYLOCOCCUS EPIDERMIDIS, HAEMOLYTICUS, LUGDUNENSIS, SAPROPHYTICUS (URINA 0 [facility] care STAPHYLOCOCCUS EPIDERMIDIS, HAEMOLYTICUS, LUGDUNENSIS, SAPROPHYTICUS (URINA Not detected [facility] care URINARY TRACT INFECTION (HTR X)on 04-13-2024 ACINETOBACTER BAUMANII 0 [facility] ACINETOBACTER BAUMANII Not detected [facility] CÉSAR ALBICANS, PARAPSILOSIS, TROPICALIS 0 [facility] CÉSAR ALBICANS, PARAPSILOSIS, TROPICALIS Not detected [facility] CÉSAR GLABRATA 0 [facility] ltare CÉSAR GLABRATA Not [facility] CÉSAR KRUSEI 0 [facility] hcare CÉSAR KRUSEI Not detected [facility] CITROBACTER FREUNDII 0 [facility] Healthcare CITROBACTER FREUNDII Not detected [facility] ENTEROBACTER AEROGENES, CLOACAE 0 [facility] re ENTEROBACTER AEROGENES, CLOACAE Not detected [facility] re ENTEROCOCCUS FAECALIS, FAECIUM 0 [facility] e ENTEROCOCCUS FAECALIS, FAECIUM Not detected [facility] e ESCHERICHIA COLI 0 [facility] ESCHERICHIA COLI Not detected [facility] KLEBSIELLA PNEUMONIAE, OXYTOCA 0 [facility] are KLEBSIELLA PNEUMONIAE, OXYTOCA Not detected [facility] are MORGANELLA MORGANII 0 [facility] Healthcare MORGANELLA MORGANII Not detected [facility] PROTEUS MIRABILIS, VULGARIS 0 [facility] Healthcare PROTEUS MIRABILIS, VULGARIS Not detected [facility] PSEUDOMONAS AERUGINOSA 0 [facility]SEUD[facility] AERUGINOSA Not detected [facility] SERRATIA MARCESCENS 0 [facility] SERRATIA MARCESCENS Not detected [facility] STAPHYLOCOCCUS AUREUS 0 [facility] Healthcare STAPHYLOCOCCUS AUREUS Not detected [facility] STREPTOCOCCUS AGALACTIAE (GROUP B STREP) 0 [facility] Healthcare STREPTOCOCCUS AGALACTIAE (GROUP B STREP) Not detected [facility] STREPTOCOCCUS PYOGENES (GROUP A STREP) 0 [facility] Healthcare STREPTOCOCCUS PYOGENES (GROUP A STREP) Not detected [facility] Healthcar e ALL CBC WITH AUTO DIFFon BASOPHILS ABSOLUTE AUTO 0.1 [facility] Basophils/100 WBC (Bld) 0.7 % 0.2 - 2.0 % [facility] Eosinophils/100 WBC (Bld) 2.1 % 0.9 - 7.0 % [facility] Erythrocyte distribution width (RBC) [Ratio] 12.5 % 11.0 - 15.0 % [facility] Hematocrit (Bld) [Volume fraction] 41.4 % 36.0 - 48.0 % [facility] e Hemoglobin (Bld) [Mass/Vol] 14.1 g/dL 12.0 - 16.0 g/dL [facility] IMMATURE GRANULOCYTES ABS AUTO 0.01 [facility] Immature granulocytes/100 WBC (Bld) 0.1 % 0.0 - 0.5 % [facility] LYMPHOCYTES ABSOLUTE AUTO 1.9 [facility] Lymphocytes/100 WBC (Bld) 27.6 % 20.5 - 60.0 % [facility] MCH (RBC) [Entitic mass] 31.6 pg 26.7 - 34.0 pg [facility] MCHC (RBC) [Mass/Vol] 34.1 g/dL 29.9 - 35.2 g/dL [facility] MCV (RBC) [Entitic vol] 92.8 fL 81.0 - 99.0 fL [facility] MONOCYTES ABSOLUTE AUTO 0.6 [facility] Monocytes/100 WBC (Bld) 9 % 1.7 - 12.0 % [facility] NEUTROPHILS ABSOLUTE AUTO 4.2 [facility] Neutrophils/100 WBC (Bld) 60.5 % 43.0 - 75.0 % [facility] Platelet mean volume (Bld) [Entitic vol] 10 fL 9.5 - 13.5 fL [facility] # 0.2 [facility] TB PLT 198 [facility] TB RBC 4.46 [facility] Health[facility] e [facility] WBC 7 [facility] Urinalysis macro (dipstick) panel (U)on 04-12-2024 Bilirubin, UA Negative Negative - (70) +++ mg/dL [facility] Blood, UA Positive Negative - 50 Papito/mcL [facility] Clarity, UA Clear [facility] re Color, UA Yellow [facility] Glucose, UA Negative Negative - 1999(110) ++++ mg/dL [facility] Interpretation and review of laboratory results Abnormal [facility] Ketones, UA Negative Negative - 160(16) ++++ mg/dL [facility] Leukocytes, UA Negative Negative - 500+++ Cedric/mcL [facility] Nitrite, UA Negative Negative - Positive [facility] pH, UA 6 5 - 9 [facility] e Protein, UA Negative Negative - 1999(20) ++++ mg/dL [facility] Spec Grav, UA 1.02 1 - 1.03 [facility] Urobilinogen, UA 1.0 0.2 - 12 mg/dL [facility] e Cult,Urineon 02-10-2024 Cult,Urine Specimen Description .CLEAN CATCH URINE Culture NO SIGNIFICANT GROWTH Report Status FINAL 02/10/2024 Normal [facility] Comment on above: Performed By: #### U RC #### [address] [place], [place] [id number] Loading Unit Operator Powder Charging: Enrique Ortega MD [facility] [address] [place], [place] [id number] Loading Unit Operator Powder Charging: Taran De Los Santos MD Basic Metabolic Profon 02-07 Anion gap [Moles/Vol] 11 mmol/L Normal 02-07 [facility] Comment on above: Performed By: #### T JONES UMANZOR, CDP ####[facility] , [place] [id number] Lab Director: Taran De Los Santos MD BUN/CRE Ratio 11 Normal 02-11 [facility] Comment on above: Performed By: #### T JONES UMANZOR, CDP ####[facility] , [place] [id number] Lab Director: Taran De Los Santos MD Calcium [Mass/Vol] 9.6 mg/dL Normal 8.6-10.4 [facility] Comment on above: Performed By: #### T JONES UMANZOR, CDP ####[facility] , [place] 1516283 Lab Director: Taran De Los Santos MD Chloride [Moles/Vol] 103 mmol/L Normal 98-107 [facility] Comment on above: Performed By: #### JONES CHA, CDP ####[facility] , [place] 0328183 Lab Director: Taran De Los Santos MD CO2 [Moles/Vol] 26 mmol/L Normal 20-31 [facility] Comment on above: Performed By: #### T JONES UMANZOR, CDP ####[facility] [place] [address] Lab Director: aTran De Los Santos MD Creatinine [Mass/Vol] 0.9 mg/dL Normal 0.50-0.90 [facility] Comment on above: Performed By: #### T JONES UMANZOR, CDP ####[facility] , [place] 1967983 Lab Director: Taran De Los Santos MD GFR/1.73 sq M.predicted among non-blacks MDRD (S/P/Bld) [Vol rate/Area] 85 mL/min/{1.73_m2} Normal >60 [facility] Comment on above: Result Comment: These results [...] affects renal tubular secretion. Performed By: #### T JONES UMANZOR, CDP ####[address] , [place] 136[address]83 Lab Director: Taran De Los Santos MD Glucose [Mass/Vol] 98 mg/dL Normal 74-99 [facility] Comment on above: Performed By: #### T JONES UMANZOR, CDP ####[facility] , [place] 2264583 Lab Director: Taran De Los Santos MD Potassium [Moles/Vol] 4.0 mmol/L Normal 3.7-5.3 [facility] Comment on above: Performed By: #### T JONES UMANZOR, CDP ####[facility] [place] [address] Lab Director: Taran De Los Santos MD Sodium [Moles/Vol] 140 mmol/L Normal 136-145 [facility] Comment on above: Performed By: #### T JONES UMANZOR, CDP ####[address] , [place] 78[address] Lab Director: Taran De Los Santos MD Urea nitrogen [Mass/Vol] 10 mg/dL Normal 6-20 [facility] Comment on above: Performed By: #### T JONES UMANZOR, CDP ####[address] [place] [address] lab Director: Taran De Los Santos MD CBC with Diffon 02-08-2024 Abs. Basophil 0.03 k/uL Normal 0.00-0.20 [facility] Comment on above: Performed By: #### JONES CHA, CDP ####[address] , [place] 167[address]83 Lab Director: Taran De Los Santos MD Abs.Imm.Granulocyte <0.03 Normal 0.00-0.30 [facility] Comment on above: Performed By: #### JONES CHA, CDP ####[address] , [place] [id number] Lab Director: Taran De Los Santos MD Abs.Neutrophil (Seg) 3.12 k/uL Normal 1.50-8.10 [facility] Comment on above: Performed By: #### T JONES UMANZOR, CDP ####[address] , [place] 7797[address] Lab Director: Taran De Los Santos MD Basophils/100 WBC (Bld) 1 % Normal 0-2 [facility] Comment on above: Performed By: #### JONES CHA, CDP ####[address] , [place] [id number] Lab Director: Taran De Los Santos MD Eosinophils (Bld) [#/Vol] 0.11 10*3/uL Normal 0.00-0.44 [facility] Comment on above: Performed By: #### JONES CHA, CDP ####[address] , [place] [address] [facility] Director: Taran De Los Santos MD Eosinophils/100 WBC (Bld) 2 % Normal 1-4 [facility] Comment on above: Performed By: #### JONES CHA, CDP ####[address] , [place] [address] lab Director: Taran De Los Santos MD Erythrocyte distribution width (RBC) [Ratio] 12.2 % Normal 11.8-14.4 [facility] Comment on above: Performed By: #### JONES CHA, CDP ####[address] [place] [address] lab Director: Taran De Los Santos MD Hematocrit (Bld) [Volume fraction] 44.3 % Normal 36.3-47.1 [facility] Comment on above: Performed By: #### JONES CHA, CDP ####[address] , [place] [address] Lab Director: Taran De Los Santos MD Hemoglobin (Bld) [Mass/Vol] 15.3 g/dL High 11.9-15.1 [facility] Comment on above: Performed By: #### JONES CHA, CDP ####[address] , [place] [address] lab Director: Taran De Los Santos MD Immature granulocytes/100 WBC (Bld) 0 % Normal 0 [facility] Comment on above: Performed By: #### JONES CHA, CDP ####[address] , [facility]83 lab Director: Taran De Los Santos MD Lymphocytes (Bld) [#/Vol] 2.44 10*3/uL Normal 1.10-3.70 [facility] Comment on above: Performed By: #### JONES CHA, CDP ####[address] , [place] 06[address] Lab Director: Taran De Los Santos MD Lymphocytes/100 WBC (Bld) 40 % Normal 24-43 [facility] Comment on above: Performed By: #### JONES CHA, CDP ####[address] , [facility]83 Lab Director: Taran De Los Santos MD MCH (RBC) [Entitic mass] 30.9 pg Normal 25.2-33.5 [facility] Comment on above: Performed By: #### JONES CHA, CDP ####[address] , [facility]83 lab Director: Taran De Los Santos MD MCHC (RBC) [Mass/Vol] 34.5 g/dL Normal 28.4-34.8 [facility] Comment on above: Performed By: #### JONES CHA, CDP ####[address] , [facility]83 Lab Director: Taran De Los Santos MD MCV (RBC) [Entitic vol] 89.5 fL Normal 82.6-102.9 [facility] Comment on above: Performed By: #### JONES CHA, CDP ####[address] , [facility]83 Lab Director: Taran De Los Santos MD Monocytes (Bld) [#/Vol] 0.34 10*3/uL Normal 0.10-1.20 [facility] Comment on above: Performed By: #### JONES CHA, CDP ####[address] [place] [address] Lab Director: Taran De Los Santos MD Monocytes/100 WBC (Bld) 6 % Normal 3-12 [facility] Comment on above: Performed By: #### JONES CHA, CDP ####[address] , [place] 167[address] Lab Director: Taran De Los Santos MD Neutrophil (Seg) 51 % Normal 36-65 [facility] Comment on above: Performed By: #### T JONES UMANZOR, CDP ####[address] , [place] [id number] Lab Director: Taran De Los Santos MD NRBC Automated 0.0 per 100 WBC Normal 0.0 [facility] Comment on above: Performed By: #### T JONES UMANZOR, CDP ####[address] , [place] [id number] Lab Director: Taran De Los Santos MD Platelet mean volume (Bld) [Entitic vol] 10.8 fL Normal 8.1-13.5 [facility] Comment on above: Performed By: #### T JONES UMANZOR, CDP ####[address] , [place] [id number] Lab Director: Taran De Los Santos MD Platelets (Bld) [#/Vol] 165 10*3/uL Normal 138-453 [facility] Comment on above: Performed By: #### JONES CHA, CDP ####[address] , [place] 0137683 Lab Director: Taran De Los Santos MD RBC (Bld) [#/Vol] 4.95 10*6/uL Normal 3.95-5.11 [facility] Comment on above: Performed By: #### T JONES UMANZOR, CDP ####[address] [place] [address] Lab Director: Taran De Los Santos MD WBC (Bld) [#/Vol] 6.1 10*3/uL Normal 3.5-11.3 [facility] Comment on above: Performed By: #### T ROPI, BMP, CDP ####[facility] [place] [address] lab Director: Taran De Los Santos MD CT HEAD WO CONTRASTon 2023 CT HEAD WO CONTRAST EXAMINATION: CT OF THE HEAD WITHOUT CONTRAST 02/08/2024 12:48 pm TECHNIQUE: CT of the head was performed without the administration of intravenous contrast. Automated exposure control, iterative reconstruction, and/or weight based adjustment of the mA/kV was utilized to reduce the radiation dose to as low as reasonably achievable. COMPARISON: 10/23/2022 HISTORY: ORDERING SYSTEM PROVIDED HISTORY: lightheaded and headache TECHNOLOGIST PROVIDED HISTORY: lightheaded and headache Decision Support Exception - unselect if not [...] the orbits demonstrate no acute abnormality. SINUSES: The visualized paranasal sinuses and mastoid air cells demonstrate no acute abnormality. SOFT TISSUES/SKULL: No acute abnormality of the visualized skull or soft tissues. IMPRESSION: No acute intracranial abnormality. Interpreted by: Torres Fischer MD Signed by: Torres Fischer MD 02/08/24 Final result Normal [facility] HCG, ,Urineon 02-07 Beta HCG ( test) Ql (U) Negative Normal NEG [facility] Comment on above: Result Comment: Spec imens with hCG levels near the threshold of the test (25 mIU/mL) may give a negative or indeterminate result. In such cases, another test should be performed with a new specimen in 48-72 hours. If early is suspected clinically in this setting, correlation with quantitative serum b-hCG level is suggested. [facility] use of plasma for this test. This has not been cleared or approved by the U.[place]. Food and Drug Administration. The FDA has determined that such clearance is not necessary. Performed By: #### U HCG, LURDES MARCIALX #### [facility] [address] [place] [id number] Loading Unit Operator Powder Charging: Taran De Los Santos MD Troponinon 02-08-2024 Troponin, High Sens <6 Normal 0-14 [facility] Comment on above: Result Comment: High Sensitivity Troponin values cannot be compared with other Troponin methodologies. Performed By: #### T ROPI, BMP, CDP ####[facility] , [place] 501[address]83 Lab Director: Taran De Los Santos MD UA w/Reflex Cultureon 2023 Bilirubin, SemiQt,Ur Negative Normal NEG [facility] Comment on above: Performed By: #### U HCG, UMICAO, UAX #### [facility] [address] [place] [address] [address] [place], [place] 6203483 Loading Unit Operator Powder Charging: Taran De Los Santos MD Blood, Urine 3+ Abnormal NEG [facility] Comment on above: Performed By: #### U HCG, UMICAO, UAX #### [facility] [address] [place] [address] [place] [place], [place] 5423183 Loading Unit Operator Powder Charging: Taran De Los Santos MD Clarity (U) SLIGHTLY CLOUDY Abnormal CLEAR [facility] Comment on above: Performed By: #### U HCG, UMICAO, UAX #### [facility] [address] [place] [address] [place] [address] Loading Unit Operator Powder Charging: Taran De Los Santos MD Color (U) Yellow Normal YEL [facility] Comment on above: Performed By: #### U HCG, UMICAO, UAX #### [facility] [address] [place], [place] 8223783 Loading Unit Operator Powder Charging: Taran De Los Santos MD Glucose Ql (U) Negative Normal NEG [facility] Comment on above: Performed By: #### U HCG, UMICAO, UAX #### [facility] [address] [place], [place] [id number] Loading Unit Operator Powder Charging: Taran De Los Santos MD Ketones Ql (U) Negative Normal NEG [facility] Comment on above: Performed By: #### U HCG, UMICAO, UAX #### [facility] [address] [place] [address] Dr. [place], [facility]83 Loading Unit Operator Powder Charging: Taran De Los Santos MD Leukocyte esterase Test strip Ql (U) MODERATE Abnormal NEG [facility] Comment on above: Performed By: #### U HCG, UMICAO, UAX #### [facility] [address] [place] [address] Dr. [place], [place] [address] Loading Unit Operator Powder Charging: Taran De Los Santos MD Nitrite,Ur Negative Normal NEG [facility] Comment on above: Performed By: #### U HCG, UMICAO, UAX #### [address] [place] [id number] Loading Unit Operator Powder Charging: Taran De Los Santos MD PH,Ur 6.0 Normal 5.0-9.0 [facility] Comment on above: Performed By: #### U HCG, UMICAO, UAX #### [facility] [address] [place] [address] Dr. [place], [place] [address] Loading Unit Operator Powder Charging: Taran De Los Santos MD Protein Ql (U) Negative Normal NEG [facility] Comment on above: Performed By: #### U HCG, UMICAO, UAX #### [address] [place], [facility]83 Loading Unit Operator Powder Charging: Taran De Los Santos MD Spec. [place],Ur 1.025 High 1.010-1.020 [facility] Comment on above: Performed By: #### U HCG, UMICAO, UAX #### [address] [place] [id number] Loading Unit Operator Powder Charging: Taran De Los Santos MD Urobilinogen,Ur Normal Normal 0.0-1.0 [facility] Comment on above: Performed By: #### U HCG, UMICAO, UAX #### [address] [place] [id number] Loading Unit Operator Powder Charging: Taran De Los Santos MD Urinalysis,Microon 4 Urine WBC's 10 TO 20 Normal 0-5 [facility] Comment on above: Result Comment: LATASHA ECTED ON 02/07 AT 1553: PREVIOUSLY REPORTED 15 TO 30 Performed By: #### U HCG, UMICAO, UAX ####[facility] , [place] 5758983 [facility] Director: Taran De Los Santos MD Bacteria 2+ Abnormal NONE [facility] Comment on above: Performed By: #### U HCG, UMICAO, UAX #### [facility] [address] [place], [place] [id number] Loading Unit Operator Powder Charging: Taran De Los Santos MD Performed By: #### U HCG, UMICAO, UAX ####[address] , [place] [address]83 [facility] Director: Taran De Los Santos MD Epithelial cells LM Ql (Urine sed) 10 TO 20 Normal 0-25 [facility] Comment on above: Performed By: #### U HCG, UMICAO, UAX #### [address] [place], [place] 892[address]83 Loading Unit Operator Powder Charging: Taran De Los Santos MD Performed By: #### U HCG, UMICAO, UAX ####[facility] , [place] 7[address]83 [facility] Director: Taran De Los Santos MD Urine RBC's 2 TO 5 Normal 0-2 [facility] Comment on above: Performed By: #### U HCG, UMICAO, UAX #### [facility] [address] [place], [place] 3805283 Loading Unit Operator Powder Charging: Taran De Los Santos MD Performed By: #### U HCG, UMICAO, UAX ####[facility] [place] [address] Lab Director: Taran De Los Santos MD Urine WBC's 15 TO 30 Normal 0-5 [facility] Comment on above: Performed By: #### U HCG, MIKHAILO, UAX #### [facility] [address] [place] [address] Loading Unit Operator Powder Charging: Taran De Los Santos MD XR CHEST PORTABLEon 02-08-20 24 XR CHEST PORTABLE EXAMINATION: ONE XRAY VIEW OF THE CHEST 02/08/2024 12:48 pm COMPARISON: 02/04/2024 HISTORY: ORDERING SYSTEM PROVIDED HISTORY: r/o PNA TECHNOLOGIST PROVIDED HISTORY: r/o PNA FINDINGS: The lungs are without acute focal process. There is no effusion or pneumothorax. The cardiomediastinal silhouette is stable. The osseous structures are stable. IMPRESSION: No acute process. Interpreted by: Peter Ugalde MD Signed by: Peter Ugalde MD 02/08/24 Final result Normal [facility] [id number]-4ax 02-04-2024 SARS-CoV-2 (COVID-19) RNA AMPARO+probe Ql (Unsp spec) Detected Abnormal NOTDET [facility] Comment on above: Result Comment: Rapid NAAT: [...] this assay. Fact sheet for Healthcare Providers: https://www.fda.gov/media/861549/download Fact sheet for Patients: https://www.fda.gov/media/456257/download Methodology: Isothermal Nucleic Acid Amplification Results reported to the appropriate Health Department Performed By: #### C OVRB #### [facility] [address] [place] [address] Loading Unit Operator Powder Charging: Taran De Los Santos MD XR CHEST PORTABLEon 02-04-20 XR CHEST PORTABLE EXAMINATION: ONE XRAY VIEW OF THE CHEST 02/04/2024 2:26 pm COMPARISON: 10/23/2022 HISTORY: ORDERING SYSTEM PROVIDED HISTORY: cough/CP TECHNOLOGIST PROVIDED HISTORY: cough/CP FINDINGS: The lungs are without acute focal process. There is no effusion or pneumothorax. The cardiomediastinal silhouette is stable. The osseous structures are stable. IMPRESSION: No acute process. Interpreted by: Peter Ugalde MD Signed by: Peter Ugalde MD 02/04/24 Final result Normal [facility] Renard 09-23-2023 L Specimen: Received: 09/24/23 Status: SOUHasmukh Ramirez Num: [id number] Spec Type: Impression Subm Dr: NAVJOT Alford Tissues: PATHPER Procedures: PATHREVIEW Age/ Patient Sex Location Account Attending Physician Lina Alcantar 32/F LABELL [id number] NAVJOT Alford SPEC NUM: [id number] RECD: 09/24/23 STATUS: NO RAMIREZ NUM: [id number] NITHIN: 09/23/[address]: NAVJOT Alford ENTERED: 09/24/23 [facility] DR: Mitzi Wolf SPEC TYPE: Impression DEPT: CORINNA Cross ENTERED BY: [id number] RECV BY: [id number] ORDERED: PATHREVIEW ORDERED: PATHREVIEW Pathologist Review Abnormal CBC for peripheral blood smear review: -No obvious abnormality of the hematologic indices, except slightly reduced number of erythrocytes, and borderline anemia with the apparent low normal ranges of the hemoglobin and the hematocrit levels -Occasional ovalocytes and occasional microcytes noticed -No obvious morphologic abnormality of the leukocyte population -No morphological abnormality of the platelet population Comment: -The cause of the minor suspected anemia in the young adult female patient is most likely due to minor or intermittent degree of underlying iron deficiency, sometimes can occur in reproductive age woman with abnormal menorrhagia, or excessive childbearing demand at , requiring clinical and laboratory correlation, including measurement of the serum iron profile as needed CPT: 08862 CBC No results available. -------- -------- Specimen: [id number] Received: 09/24/23 Status: NO Ramirez Num: [id number] Spec Type: Impression Subm Dr: NAVJOT Alford Tissues: PATHPER Procedures: PATHREVIEW -------- Patient: Lina Alcantar [id number] (Continued) -------- Signed (signature on file) Nola Payne MD 09/24/23 1431 Normal [facility] CBC with Auto Differentialon 09-10-2023 Basophils (Bld) [#/Vol] 0.09 10*3/uL [facility] Basophils/100 WBC (Bld) 1 % 0 - 2 % [facility] Eosinophils (Bld) [#/Vol] 0.27 10*3/uL [facility] Eosinophils/100 WBC (Bld) 3 % 1 - 4 % [facility] Erythrocyte distribution width (RBC) [Ratio] 12.5 % 11.8 - 14.4 % [facility] Hematocrit (Bld) [Volume fraction] 40.9 % 36.3 - 47.1 % [facility] Hemoglobin (Bld) [Mass/Vol] 13.9 g/dL 11.9 - 15.1 g/dL [facility] Immature granulocytes (Bld) [#/Vol] 0.00 10*3/uL [facility] Immature granulocytes/100 WBC (Bld) 0 % 0 [facility] Interpretation and review of laboratory results Abnormal [facility] Lymphocytes/100 WBC (Bld) 27 % 24 - 43 % [facility] Lymphocytes/100 WBC (Bld) 2.40 % [facility] MCH (RBC) [Entitic mass] 30.7 pg 25.2 - 33.5 pg [facility] MCHC (RBC) [Mass/Vol] 34.0 g/dL 28.4 - 34.8 g/dL [facility] MCV (RBC) [Entitic vol] 90.3 fL 82.6 - 102.9 fL [facility] Monocytes/100 WBC (Bld) 8 % 3 - 12 % [facility] Monocytes/100 WBC (Bld) 0.71 % [facility] Morphology [place] (Bld) [Interp] Normal [facility] Neutrophils/100 WBC (Bld) 61 % 36 - 65 % [facility] Nucleated RBC/100 WBC (Bld) [Ratio] 0.0 % 0.0 per 100 WBC [facility] Platelet, Fluorescence 73 Low [facility] Platelets (Bld) [#/Vol] See Reflexed IPF Result [facility] Platelets reticulated/100 platelets Auto (Bld) 19.5 % High 1.1 - 10.3 % [facility] RBC (Bld) [#/Vol] 4.53 10*6/uL 3.95 - 5.1 1 m/uL [facility] Segmented neutrophils/100 WBC (Bld) 5.43 % [facility] WBC other (Bld) [#/Vol] 8.[address] [facility] CBC with Diffon 09-10-2023 Abs. Basophil 0.09 k/uL Normal 0.0-0.2 [facility] Comment on above: Performed By: #### R EJEC, CDP ####[address] [place] [address] Lab Director: Taran De Los Santos MD Abs.Imm.Granulocyte 0.00 k/uL Normal 0.00-0.30 [facility] Comment on above: Performed By: #### R JOHN, CDP ####[address] , [facility]83 Lab Director: Taran De Los Santos MD Abs.Neutrophil (Seg) 5.43 k/uL Normal 1.50-8.10 [facility] Comment on above: Performed By: #### R JOHN, CDP ####[address] [place] [address] Lab Director: Taran De Los Santos MD Basophils/100 WBC (Bld) 1 % Normal 0-2 [facility] Comment on above: Performed By: #### R JOHN, CDP ####[address] , [facility]83 Lab Director: Taran De Los Santos MD Eosinophils (Bld) [#/Vol] 0.27 10*3/uL Normal 0.00-0.44 [facility] Comment on above: Performed By: #### R EJEC, CDP ####[address] , [place] [id number] Lab Director: Taran De Los Santos MD Eosinophils/100 WBC (Bld) 3 % Normal 1-4 [facility] Comment on above: Performed By: #### R EJEC, CDP ####[address] , [place] [id number] Lab Director: Taran De Los Santos MD Immature granulocytes/100 WBC (Bld) 0 % Normal 0 [facility] Comment on above: Performed By: #### R EJEC, CDP ####[address] , [place] [id number] Lab Director: Taran De Los Santos MD Lymphocytes (Bld) [#/Vol] 2.40 10*3/uL Normal 1.10-3.70 [facility] Comment on above: Performed By: #### R EJEC, CDP ####[address] , [place] [id number] Lab Director: Taran De Los Santos MD Lymphocytes/100 WBC (Bld) 27 % Normal 24-43 [facility] Comment on above: Performed By: #### R EJEC, CDP ####[address] , [place] [address]83 Lab Director: Taran De Lso Santos MD Monocytes (Bld) [#/Vol] 0.71 10*3/uL Normal 0.10-1.20 [facility] Comment on above: Performed By: #### R EJEC, CDP ####[address] [place] [address] Lab Director: Taran De Los Santos MD Monocytes/100 WBC (Bld) 8 % Normal 3-12 [facility] Comment on above: Performed By: #### R EJEC, CDP ####[address] , [place] [id number] Lab Director: Taran De Los Santos MD Morphology [place] (Bld) [Interp] Normal Normal [facility] Comment on above: Performed By: #### R EJEC, CDP ####[address] , [place] [id number] Lab Director: Taran De Los Santos MD Neutrophil (Seg) 61 % Normal 36-65 [facility] Comment on above: Performed By: #### R EJEC, CDP ####[address] , [place] [address]83 Lab Director: Taran De Los Santos MD Erythrocyte distribution width (RBC) [Ratio] 12.5 % Normal 11.8-14.4 [facility] Comment on above: Performed By: #### R EJEC, CDP ####[address] , [place] [id number] Lab Director: Taran De Los Santos MD Hematocrit (Bld) [Volume fraction] 40.9 % Normal 36.3-47.1 [facility] Comment on above: Performed By: #### R JOHN, CDP ####[address] , [place] 6[address] Lab Director: Taran De Los Santos MD Hemoglobin (Bld) [Mass/Vol] 13.9 g/dL Normal 11.9-15.1 [facility] Comment on above: Performed By: #### R JOHN, CDP ####[address] , [place] [id number] Lab Director: Taran De Los Santos MD MCH (RBC) [Entitic mass] 30.7 pg Normal 25.2-33.5 [facility] Comment on above: Performed By: #### R EJEC, CDP ####[address] , [place] [id number] Lab Director: Taran De Los Santos MD MCHC (RBC) [Mass/Vol] 34.0 g/dL Normal 28.4-34.8 [facility] Comment on above: Performed By: #### R EJCEDRIC, CDP ####[address] , [place] [id number] Lab Director: Taran De Los Santos MD MCV (RBC) [Entitic vol] 90.3 fL Normal 82.6-102.9 [facility] Comment on above: Performed By: #### R JOHN, CDP ####[address] , [place] [id number] Lab Director: Taran De Los Santos MD NRBC Automated 0.0 per 100 WBC Normal 0.0 [facility] Comment on above: Performed By: #### R JOHN, CDP ####[address] [place] [address] Lab Director: Taran De Los Santos MD Platelet Count See Reflexed IPF Result Normal 138-453 [facility] Comment on above: Performed By: #### R JOHN, CDP ####[address] , [place] [id number] Lab Director: Taran De Los Santos MD Platelet, Fluoresc. 73 k/uL Low 138-453 [facility] Comment on above: Performed By: #### R JOHN, CDP ####[address] [place] [address] Lab Director: Taran De Los Santos MD PLT, Immature Fract. 19.5 % High 1.1-10.3 [facility] Comment on above: Performed By: #### Jerel LOPEZ, CDP ####[address] , [place] [phone] Director: Taran De Los Santos MD RBC (Bld) [#/Vol] 4.53 10*6/uL Normal 3.95-5.11 [facility] Comment on above: Performed By: #### R JOHN, CDP ####[address] , [place] [id number] Lab Director: Taran De Los Santos MD WBC (Bld) [#/Vol] 8.9 10*3/uL Normal 3.5-11.3 [facility] Comment on above: Performed By: #### R EJEC, CDP ####[facility] , [place] [id number] Lab Director: Taran De Los Santos MD Comp Metabolic Profon 2023 Albumin [Mass/Vol] 4.1 g/dL Normal 3.5-5.2 [facility] Comment on above: Performed By: #### C P ####[address] , [place] [id number] Lab Director: Taran De Los Santos MD Albumin/Glob Ratio 1.4 Normal 1.0-2.5 [facility] Comment on above: Performed By: #### C P ####[address] , [place] [id number] Lab Director: Taran De Los Santos MD Alkaline Phos 98 U/L Normal 35-104 [facility] Comment on above: Performed By: #### C P ####[address] , [place] [id number] Lab Director: Taran De Los Santos MD ALT [Catalytic activity/Vol] 11 U/L Normal 5-33 [facility] Comment on above: Performed By: #### C P ####[address] [place] [address] Lab Director: Taran De Los Santos MD Anion gap [Moles/Vol] 10 mmol/L Normal 9-17 [facility] Comment on above: Performed By: #### C P ####[address] , [place] [id number] Lab Director: Taran De Los Santos MD AST [Catalytic activity/Vol] 15 U/L Normal <32 [facility] Comment on above: Performed By: #### C P ####[address] , [place] [id number] Lab Director: Taran De Los Santos MD Bilirubin [Mass/Vol] 0.2 mg/dL Low 0.3-1.2 [facility] Comment on above: Performed By: #### C P ####[facility] [place] , [place] [id number] Lab Director: Taran De Los Santos MD BUN/CRE Ratio 21 High 9-20 [facility] Comment on above: Performed By: #### C P ####[address] , [place] [id number] lab Director: Taran De Los Santos MD Calcium [Mass/Vol] 9.1 mg/dL Normal 8.6-10.4 [facility] Comment on above: Performed By: #### C P ####[address] , [place] [id number] lab Director: Taran De Los Santos MD Chloride [Moles/Vol] 103 mmol/L Normal 98-107 [facility] Comment on above: Performed By: #### C P ####[address] , [place] 804[address]83 lab Director: Taran De Los Santos MD CO2 [Moles/Vol] 24 mmol/L Normal 20-31 [facility] Comment on above: Performed By: #### C P ####[address] , [place] 747[address]83 lab Director: Taran De Los Santos MD Creatinine [Mass/Vol] 0.7 mg/dL Normal 0.5-0.9 [facility] Comment on above: Performed By: #### C P ####[address] , [place] [id number] lab Director: Taran De Los Santos MD GFR/1.73 sq M.predicted among non-blacks MDRD (S/P/Bld) [Vol rate/Area] mL/min/{1.73_m2} Normal >60 [facility] Comment on above: Result Comment: These results [...] renal tubular secretion. Performed By: #### C P ####[address] [place] [address] Lab Director: Taran De Los Santos MD Glucose [Mass/Vol] 92 mg/dL Normal 70-99 [facility] Comment on above: Performed By: #### C P ####[address] , [place] [address]29[address]83 Lab Director: Taran De Los Santos MD Potassium [Moles/Vol] 3.9 mmol/L Normal 3.7-5.3 [facility] Comment on above: Performed By: #### C P ####[address] [place] [address] Lab Director: Taran De Los Santos MD Protein [Mass/Vol] 7.1 g/dL Normal 6.4-8.3 [facility] Comment on above: Performed By: #### C P ####[address] [place] [address] Lab Director: Taran De Los Santos MD Sodium [Moles/Vol] 137 mmol/L Normal 135-144 [facility] Comment on above: Performed By: #### C P ####[address] [place] [address] Lab Director: Taran De Los Santos MD Urea nitrogen [Mass/Vol] 15 mg/dL Normal 6-20 [facility] Comment on above: Performed By: #### C P ####[address] , [place] [id number] Lab Director: Taran De Los Santos MD [facility] Metabolic [facility] 09-10-2023 Albumin [Mass/Vol] 4.1 g/dL 3.5 - 5.2 g/dL [facility] Albumin/Globulin [Mass ratio] 1.4 {ratio} 1.0 - 2.5 [facility] ALP [Catalytic activity/Vol] 98 U/L 35 - 104 U/L [facility] ALT [Catalytic activity/Vol] 11 U/L 5 - 33 U/L [facility] Anion gap [Moles/Vol] 10 mmol/L 9 - 17 mmol/L [facility] AST [Catalytic activity/Vol] 15 U/L NINF - 32 U/L [facility] Bilirubin [Mass/Vol] 0.2 mg/dL Low 0.3 - 1 .2 mg/dL [facility] Calcium [Mass/Vol] 9.1 mg/dL 8.6 - 10. 4 mg/dL [facility] Chloride [Moles/Vol] 103 mmol/L 98 - 10 7 mmol/L [facility] CO2 [Moles/Vol] 24 mmol/L 20 - 31 mmol/L [facility] Creatinine [Mass/Vol] 0.7 mg/dL 0.5 - 0.9 mg/dL [facility] GFR/1.73 sq M.predicted MDRD (S/P/Bld) [Vol rate/Area] - PINF [facility] Comment on above: These results are not [...] that affects renal tubular secretion. Glucose [Mass/Vol] 92 mg/dL 70 - 99 mg/dL [facility] Interpretation and review of laboratory results Abnormal [facility] Potassium [Moles/Vol] 3.9 mmol/L 3.7 - 5.3 mmol/L [facility] Protein [Mass/Vol] 7.1 g/dL 6.4 - 8.3 g/dL [facility] Sodium [Moles/Vol] 137 mmol/L 135 - 144 mmol/L [facility] Urea nitrogen [Mass/Vol] 15 mg/dL 6 - 20 mg/dL [facility] Urea nitrogen/Creatinine [Mass ratio] 21 mg/mg High 9 - [address] [facility] HCG, ,Urineon 09-09 Beta HCG ( test) Ql (U) Negative Normal NEG [facility] Comment on above: Result Comment: Spec imens with hCG levels near the threshold of the test (25 mIU/mL) may give a negative or indeterminate result. In such cases, another test should be performed with a new specimen in 48-72 hours. If early is suspected clinically in this setting, correlation with quantitative serum b-hCG level is suggested. [facility] has confirmed the use of plasma for this test. This has not been cleared or approved by the U.S. Food and Drug Administration. The FDA has determined that such clearance is not necessary. Performed By: #### U HCG, UAMIC ####[facility] [place] [address] lab Director: Taran De Los Santos MD , Urineon 4 HCG ( test) Ql (U) Negative NEGATIVE [facility] Comment on above: Specimens with hCG l evels near the threshold of the test (25 mIU/mL) may give a negative or indeterminate result. In such cases, another test should be performed with a new specimen in 48-72 hours. If early is suspected clinically in this setting, correlation with quantitative serum b-hCG level is suggested. [facility] has confirmed the use of plasma for this test. This has not been cleared or approved by the U.S. Food and Drug Administration. The FDA has determined that such clearance is not necessary. [facility] Specimen Rejectionon 024 Reason for rejection Unable to perform testing: Specimen hemolyzed. Normal [facility] Comment on above: Performed By: #### R EJEC, CDP ####[facility] [place] [address] lab Director: Taran De Los Santos MD Source of sample .BLOOD Normal [facility] Comment on above: Performed By: #### R EJEC, CDP ####[facility] [place] [address] , [place] [address] Lab Director: Taran De Los Santos MD Test ordered CP Normal [facility] Comment on above: Performed By: #### R EJEC, CDP ####[facility] [place] [address] , [place] [id number] Lab Director: Taran De Los Santos MD Urinalysis w/ Microon 2023 Amorphous sediment LM Ql (Urine sed) 1+ Abnormal [facility] Comment on above: Performed By: #### U HCG, UAMIC ####[address] [place] [address] Lab Director: Taran De Los Santos MD Bacteria 3+ Abnormal NONE [facility] Comment on above: Performed By: #### U HCG, UAMIC ####[address] [place] [address] Lab Director: Taran De Los Santos MD Bilirubin, SemiQt,Ur Negative Normal NEG [facility] Comment on above: Performed By: #### U HCG, UAMIC ####[address] [place] [address] Lab Director: Taran De Los Santos MD Blood, Urine Negative Normal NEG [facility] Comment on above: Performed By: #### U HCG, UAMIC ####[address] [place] [address] Lab Director: Taran De Los Santos MD Clarity (U) SLIGHTLY CLOUDY Abnormal CLEAR [facility] Comment on above: Performed By: #### U HCG, UAMIC ####[address] [place] [address] Lab Director: Taran De Los Santos MD Color (U) Yellow Normal YEL [facility] Comment on above: Performed By: #### U HCG, UAMIC ####[address] , [place] [id number] Lab Director: Taran De Los Santos MD Epithelial cells LM Ql (Urine sed) 2 TO 5 Normal 0-25 [facility] Comment on above: Performed By: #### U HCG, UAMIC ####[address] , [place] [id number] Lab Director: Taran De Los Santos MD Glucose Ql (U) Negative Normal NEG [facility] Comment on above: Performed By: #### U HCG, UAMIC ####[address] , [place] [id number] Lab Director: Taran De Los Santos MD Ketones Ql (U) Negative Normal NEG [facility] Comment on above: Performed By: #### U HCG, UAMIC ####[address] [place] [address] Lab Director: Tarna De Los Santos MD Leukocyte esterase Test strip Ql (U) SMALL Abnormal NEG [facility] Comment on above: Performed By: #### U HCG, UAMIC ####[address] , [place] [id number] Lab Director: Taran De Los Santos MD Nitrite,Ur Negative Normal NEG [facility] Comment on above: Performed By: #### U HCG, UAMIC ####[address] , [place] [address]83 Lab Director: Taran De Los Santos MD PH,Ur 6.5 Normal 5.0-9.0 [facility] Comment on above: Performed By: #### U HCG, UAMIC ####[address] , [place] 9906383 Lab Director: Taran De Los Santos MD Protein Ql (U) Negative Normal NEG [facility] Comment on above: Performed By: #### U HCG, UAMIC ####[facility] , [place] [address]83 Lab Director: Taran De Los Santos MD Spec. [place],Ur 1.025 High 1.010-1.020 [facility] Comment on above: Performed By: #### U HCG, UAMIC ####[facility] [place] [address] lab Director: Taran De Los Santos MD Urine RBC's 0 TO 2 Normal 0-2 [facility] Comment on above: Performed By: #### U HCG, UAMIC ####[address] , [place] [id number] lab Director: Taran De Los Santos MD Urine WBC's 0 TO 2 Normal 0-5 [facility] Comment on above: Performed By: #### U HCG, UAMIC ####[address] , [place] [id number] lab Director: Taran De Los Santos MD Urobilinogen,Ur Normal Normal 0.0-1.0 [facility] Comment on above: Performed By: #### U HCG, UAMIC ####[address] , [place] [id number] lab Director: Taran De Los Santos MD Urinalysis with Microscopico n 09-10-2023 Amorphous sediment LM Ql (Urine sed) 1+ Abnormal None [facility] Bacteria LM Ql (Urine sed) 3+ Abnormal None [facility] Bilirubin Ql (U) Negative NEGATIVE [facility] Clarity (U) SLIGHTLY CLOUDY Abnormal Clear [facility] Color (U) Yellow Yellow [facility] Epithelial cells LM.HPF (Urine sed) [#/Area] 2 TO 5 [facility] Glucose Test strip (U) [Mass/Vol] Negative NEGATIVE mg/dL [facility] Hemoglobin Auto test strip Ql (U) Negative NEGATIVE [facility] Interpretation and review of laboratory results Abnormal [facility] Ketones (U) [Mass/Vol] Negative NEGATIVE mg/dL [facility] Leukocyte esterase Test strip Ql (U) SMALL Abnormal NEGATIVE [facility] Nitrite Ql (U) Negative NEGATIVE [facility] pH (U) 6.5 [pH] 5.0 - 9.0 [facility] Protein (U) [Mass/Vol] Negative NEGATIVE mg/dL [facility] RBC LM.HPF (Urine sed) [#/Area] 0 TO 2 [facility] Specific gravity (U) [Rel density] 1.025 High 1.010 - 1.020 [facility] Urobilinogen Qn (U) Normal 0.0 - 1. 0 EU/dL [facility] WBC LM.HPF (Urine sed) [#/Area] 0 TO [address] [facility] BMPon 10-23-2022 Anion gap [Moles/Vol] 10 mmol/L 9 - 17 mmol/L [facility] Calcium [Mass/Vol] 8.4 mg/dL Low 8.6 - 10. 4 mg/dL [facility] Chloride [Moles/Vol] 107 mmol/L 98 - 10 7 mmol/L [facility] CO2 [Moles/Vol] 24 mmol/L 20 - 31 mmol/L [facility] Creatinine [Mass/Vol] 0.88 mg/dL 0.50 - 0.90 mg/dL [facility] GFR/1.73 sq M.predicted MDRD (S/P/Bld) [Vol rate/Area] - PINF [facility] Comment on above: These results are not [...] [Mass/Vol] 95 mg/dL 70 - 99 mg/dL [facility] Potassium [Moles/Vol] 3.9 mmol/L 3.7 - 5.3 mmol/L [facility] Sodium [Moles/Vol] 141 mmol/L 135 - 144 mmol/L [facility] Urea nitrogen [Mass/Vol] 7 mg/dL 6 - 20 mg/dL [facility] Urea nitrogen/Creatinine [Mass ratio] 8 mg/mg Low 9 - 20 [facility] C-Reactive Proteinon 023 CRP High sensitivity method [Mass/Vol] 34 mg/L High 0.0 - 5.0 mg/L [facility] CBC with Auto Differentialon 10-23-2022 Basophils (Bld) [#/Vol] [facility] Basophils/100 WBC (Bld) 0 % 0 - 2 % [facility] Eosinophils (Bld) [#/Vol] 0.07 10*3/uL [facility] Eosinophils/100 WBC (Bld) 1 % 1 - 4 % [facility] Erythrocyte distribution width (RBC) [Ratio] 13.0 % 11.8 - 14.4 % [facility] Hematocrit (Bld) [Volume fraction] 39.0 % 36.3 - 47.1 % [facility] Hemoglobin (Bld) [Mass/Vol] 13.1 g/dL 11.9 - 15.1 g/dL [facility] Immature granulocytes (Bld) [#/Vol] [facility] Immature granulocytes/100 WBC (Bld) 0 % 0 [facility] Interpretation and review of laboratory results Abnormal [facility] Lymphocytes/100 WBC (Bld) 17 % Low 24 - 43 % [facility] Lymphocytes/100 WBC (Bld) 1.06 % Low [facility] MCH (RBC) [Entitic mass] 31.2 pg 25.2 - 33.5 pg [facility] MCHC (RBC) [Mass/Vol] 33.6 g/dL 28.4 - 34.8 g/dL [facility] MCV (RBC) [Entitic vol] 92.9 fL 82.6 - 102.9 fL [facility] Monocytes/100 WBC (Bld) 13 % High 3 - 12 % [facility] Monocytes/100 WBC (Bld) 0.82 % [facility] Neutrophils/100 WBC (Bld) 69 % High 36 - 65 % [facility] NRBC Automated 0.0 0.0 per 100 WBC [facility] Platelets (Bld) [#/Vol] See Reflexed IPF Result [facility] RBC (Bld) [#/Vol] 4.20 10*6/uL 3.95 - 5.1 1 m/uL [facility] Segmented neutrophils/100 WBC (Bld) 4.40 % [facility] WBC other (Bld) [#/Vol] 6.[address] [facility] COVID-19, Rapidon 10-23-2022 SARS-CoV-2 (COVID-19) RdRp gene AMPARO+probe Ql (Resp) Not detected Not Detected [facility] Comment on above: Rapid NAAT: The specimen [...] management decisions. Fact sheet for Healthcare Providers: https://www.fda.gov/media/306547/download Fact sheet for Patients: https://www.fda.gov/media/767756/download Methodology: Isothermal Nucleic Acid Amplification Specimen Description .NASOPHARYNGEAL SWAB [facility] CT Head W/O Contraston 10-23 No acute [...] of the visualized skull or soft tissues. [facility] Joby La M D - 10/23/2022 [...] acute intracranial abnormality. Paranasal sinus inflammatory disease [employer] Phone: Radiology Study observation (narrative) [employer] Phone: CT Head W/O ContrastOrdered By: Joby Holt on 10-23-2022 [employer] Phone: Immature Platelet Fractionon 10-23-2022 Interpretation and review of laboratory results Abnormal [facility] Platelet, Fluorescence 128 Low [facility] Platelets reticulated/100 platelets Auto (Bld) 5.2 % 1.1 - 10.3 % [facility] Mononucleosis Screenon 10-23 Heterophile Ab IA Ql (Bld) Negative NEGATIVE [facility] No Panel Informationon 10-23 Interpretation and review of laboratory results Abnormal [facility] Rapid influenza A/B antigens on 10-23-2022 FLUAV Ag Ql (Unsp spec) Negative NEGATIVE [facility] Comment on above: for Influenza A Anti gen FLUBV Ag Ql (Unsp spec) Negative NEGATIVE [facility] Comment on above: for Influenza B Anti gen. [facility] Sedimentation Rateon 023 ESR (Bld) [Velocity] 11 mm/h [facility] XR CHEST PORTABLEon 10-24-19 No acute process. Possible mild bronchitis. PN RIS CONSOLIDATED EXAMINATION: ONE XRAY VIEW OF [...] are without acute process. Mild DJD spine. [facility] RIS CONSOLIDATED Damian Keys MD - 10/23/2022 [...] IMPRESSION: No acute process. Possible mild bronchitis. [facility] Radiology Study observation (narrative) [facility] [employer] Work Phone: XR CHEST PORTABLEOrdered By: Damian Keys on 10-23-2022 [facility] [employer] Work Phone: COVID-19, Rapidon 10-22-2022 SARS-CoV-2 (COVID-19) RdRp gene AMPARO+probe Ql (Resp) Not detected Not Detected [facility] Comment on above: Rapid NAAT: The specimen [...] management decisions. Fact sheet for Healthcare Providers: https://www.fda.gov/media/611496/download Fact sheet for Patients: https://www.fda.gov/media/308827/download Methodology: Isothermal Nucleic Acid Amplification Specimen Description .NASOPHARYNGEAL SWAB [facility] GROUP A STREP CULTUREon 06-26 S. pyogenes Ag Ql (Unsp spec) Culture Observations: NEGATIVE FOR GROUP A STREPTOCOCCUS. Normal [facility] Comment on above: Performed By: #### C BC #### [facility] [address] [place] [address] Dr. Sofia Payne STREPT SCREENon 07-19-2022 STREP SCREEN A Negative Normal NEGATIVE [facility] Comment on above: Performed By: #### C BC #### [facility] [address] [place] [address] Dr. Sofia Payne Covid-19 PCR (CVDTBH)on 04-25 SARS-CoV-2 (COVID-19) RNA AMPARO+probe Ql (Unsp spec) Not detected Normal NOT DETECTED [facility] Comment on above: Result Comment: This test is not yet approved or cleared by the [place] FDA. When there are no FDA-approved or cleared tests available, and other criteria are met, FDA can make tests available under an emergency access mechanism called an Emergency Use Authorization (EUA). The EUA for this test is supported by the Tax Map Technician of Health and Human Service's (HHS's) declaration [...] Performed By: #### C BC #### [facility] [address] [place] [address] Dr. Sofia Payne INFLUENZA A AND B AGon 05-[facility] BELOW Normal [facility] Comment on above: Result Comment: Nega tive for Flu A protein angiten. Infection due to Flu A cannot be ruled out. Flu A angiten in the sample may be below the detection limit of the test. Performed By: #### C BC #### [facility] [address] [place] [address] Dr. [facility] Normal [facility] Comment on above: Result Comment: Nega tive for Flu B protein antigen. Infection due to Flu B cannot be ruled out. Flu B antigen in the sample may be below the detection limit of the test. Performed By: #### C BC #### [facility] [address] [place] [address] Dr. Sofia Payne INFLUENZA A AG Negative Normal NEGATIVE SEE COMMENT [facility] Comment on above: Performed By: #### C BC #### [facility] [address] [place] [address] Dr. Sofia Payne INFLUENZA B AG Negative Normal NEGATIVE SEE COMMENT [facility] Comment on above: Performed By: #### C BC #### [facility] [address] [place] [address] Dr. Sofia Payne INTERNAL CONTROLS Within Normal Limits Normal Wi thin Normal Limits [facility] Comment on above: Performed By: #### C BC #### [facility] [address] [place] [address] Dr. Sofia Payne CBC AUTO DIFFon 05-01-2022 BASO # 0.0 103/ul Normal 0.0-0.1 [facility] Comment on above: Performed By: #### C BC #### [facility] [address] [place] [address] Dr. Sofia Payne Basophils/100 WBC (Bld) 0.4 % Normal 0.2-2.0 [facility] Comment on above: Performed By: #### C BC #### [facility] [address] [place] [address] Dr. Sofia Payne EO # 0.2 103/ul Normal 0.0-0.7 [facility] Comment on above: Performed By: #### C BC #### [facility] [address] [place] [address] Dr. Sofia Payne Eosinophils/100 WBC (Bld) 1.6 % Normal 0.9-7.0 [facility] Comment on above: Performed By: #### C BC #### [facility] [address] [place] [address] Dr. Sofia Payne Erythrocyte distribution width (RBC) [Ratio] 12.8 % Normal 11.0-15.0 [facility] Comment on above: Performed By: #### C BC #### [facility] [address] [place] [address] Dr. Sofia Payne Hematocrit (Bld) [Volume fraction] 41.9 % Normal 36.0-48.0 [facility] Comment on above: Performed By: #### C BC #### [facility] [address] [place] [address] Dr. Sofia Payne Hemoglobin (Bld) [Mass/Vol] 14.6 g/dL Normal 12.0-16.0 [facility] Comment on above: Performed By: #### C BC #### [facility] [address] [place] [address] Dr. Sofia Payne IG # 0.02 10e3/ul Normal 0.00-0.03 [facility] Comment on above: Performed By: #### C BC #### [facility] [address] [place] [address] Dr. Sofia Payne IG % 0.2 % Normal 0.0-0.5 [facility] Comment on above: Performed By: #### C BC #### [facility] [address] [place] [address] Dr. Sofia Payne LYMPH # 1.3 103/ul Normal 1.2-3.8 [facility] Comment on above: Performed By: #### C BC #### [facility] [address] [place] [address] Dr. Sofia Payne Lymphocytes/100 WBC (Bld) 13.8 % Critically low 20.5-60.0 [facility] Comment on above: Performed By: #### C BC #### [facility] [address] [place] [address] Dr. Sofia Payne MANUAL DIFF REQ NO Normal [facility] Comment on above: Performed By: #### C BC #### [facility] [address] [place] [address] Dr. Sofia Payne MCH (RBC) [Entitic mass] 30.3 pg Normal 26.7-34.0 [facility] Comment on above: Performed By: #### C BC #### [facility] [address] [place] [address] Dr. Sofia Payne MCHC (RBC) [Mass/Vol] 34.8 g/dL Normal 29.9-35.2 [facility] Comment on above: Performed By: #### C BC #### [facility] [address] [place] [address] Dr. Sofia Payne MCV (RBC) [Entitic vol] 86.9 fL Normal 81.0-99.0 [facility] Comment on above: Performed By: #### C BC #### [facility] [address] [place] [address] Dr. Sofia Payne MONO # 0.7 103/ul Normal 0.3-0.8 [facility] Comment on above: Performed By: #### C BC #### [facility] [address] [place] [address] Dr. Sofia Payne Monocytes/100 WBC (Bld) 7.8 % Normal 1.7-12.0 [facility] Comment on above: Performed By: #### C BC #### [facility] [address] [place] [address] Dr. Sofia Payne NEUT # 7.2 103/ul Critically high 1.4-6.5 [facility] Comment on above: Performed By: #### C BC #### [facility] [address] [place] [address] Dr. Sofia Payne Neutrophils/100 WBC (Bld) 76.2 % Critically high 43.0-75.0 [facility] Comment on above: Performed By: #### C BC #### [facility] [address] [place] [address] Dr. Sofia Payne Platelet mean volume (Bld) [Entitic vol] 11.3 fL Normal 9.5-13.5 [facility] Comment on above: Performed By: #### C BC #### [facility] [address] [place] [address] Dr. Sofia Payne PLT 166 103/ul Normal 150-450 [facility] Comment on above: Performed By: #### C BC #### [facility] [address] [place] [address] Dr. Sofia Payne RBC 4.82 106/ul Normal 4.20-5.40 [facility] Comment on above: Performed By: #### C BC #### [facility] [address] [place] [address] Dr. Sofia Payne WBC 9.4 103/ul Normal 4.0-11.0 [facility] Comment on above: Performed By: #### C BC #### [facility] [address] [place] [address] Dr. Sofia Payne Covid-19 PCR (CVDTB)on SARS-CoV-2 (COVID-19) RNA AMPARO+probe Ql (Unsp spec) Not detected Normal NOT DETECTED [facility] Comment on above: Result Comment: [...] for this test is supported by the Tax Map Technician of Health and Human Service's declaration that [...] Performed By: #### C VDTBH #### [facility] [address] [place] [address] Dr. Sofia Payne ER URINE PROFILEon 2 Bilirubin Ql (U) SMALL Abnormal NEGATIVE [facility] Comment on above: Performed By: #### C BC #### [facility] [address] [place] [address] Dr. Sofia Payne Clarity (U) CLEAR Normal CLEAR [facility] Comment on above: Performed By: #### C BC #### [facility] [address] [place] [address] Dr. Sofia Payne Color (U) YELLOW Normal YELLOW [facility] Comment on above: Performed By: #### C BC #### [facility] [address] [place] [address] Dr. Sofia Payne ERUD A micrscopic examination will be performed if indicated. Normal [facility] Comment on above: Performed By: #### C BC #### [facility] [address] [address] [address] Sofia Payne Glucose Ql (U) Negative Normal NEGATIVE [facility] Comment on above: Performed By: #### C BC #### [facility] [address] [place] [address] Dr. Sofia Payne Hemoglobin Ql (U) Negative Normal NEGATIVE [facility] Comment on above: Performed By: #### C BC #### [facility] [address] [place] [address] Dr. Sofia Payne Ketones Ql (U) 15 mg/dl Abnormal NEGATIVE [facility] Comment on above: Performed By: #### C BC #### [facility] [address] [place] [address] Dr. Sofia Payne LEUKOCYTES TRACE Abnormal NEGATIVE [facility] Comment on above: Performed By: #### C BC #### [facility] [address] [place] [address] Dr. Sofia Payne Nitrite Ql (U) Negative Normal NEGATIVE [facility] Comment on above: Performed By: #### C BC #### [facility] [address] [place] [address] Dr. Sofia Payne pH (U) 5.5 [pH] Normal 5-9 [facility] Comment on above: Performed By: #### C BC #### [facility] [address] [place] [address] Dr. Sofia Payne SPEC GRAVITY >=1.030 Abnormal 1.005-<=1.025 [facility] Comment on above: Performed By: #### C BC #### [facility] [address] [place] [address] Dr. Sofia Payne UA PROTEIN Negative Normal NEGATIVE/ TRACE [facility] Comment on above: Performed By: #### C BC #### [facility] [address] [place] [address] Dr. Sofia Payne UR MICRO IND INDICATED Normal [facility] Comment on above: Performed By: #### C BC #### [facility] [address] [place] [address] Dr. Sofia Payne Urobilinogen Qn (U) 0.2 {Kristopher'U}/dL Normal 0.2 - 1. 0 [facility] Comment on above: Performed By: #### C BC #### [facility] [address] [place] [address] Dr. Sofia Payne INFLUENZA A AND B AGon 05-01 INFLUANEGH SEE BELOW Normal [facility] Comment on above: Result Comment: Nega tive for Flu A protein angiten. Infection due to Flu A cannot be ruled out. Flu A angiten in the sample may be below the detection limit of the test. Performed By: #### C BC #### [facility] [address] [place] [address] Dr. Sofia Payne INFLUBNEGH SEE BELOW Normal [facility] Comment on above: Result Comment: Nega tive for Flu B protein antigen. Infection due to Flu B cannot be ruled out. Flu B antigen in the sample may be below the detection limit of the test. Performed By: #### C BC #### [facility] [address] [place] [address] Dr. Sofia Payne INFLUENZA A AG Negative Normal NEGATIVE SEE COMMENT [facility] Comment on above: Performed By: #### C BC #### [facility] [address] [place] [address] Dr. Sofia Payne INFLUENZA B AG Negative Normal NEGATIVE SEE COMMENT [facility] Comment on above: Performed By: #### C BC #### [facility] [address] [place] [address] Dr. Sofia Payne INTERNAL CONTROLS Within Normal Limits Normal [place] thin Normal Limits [facility] Comment on above: Performed By: #### C BC #### [facility] [address] [place] [address] Dr. Sofia Payne URon 05-01-2022 , QUAL Negative Normal NEGATIVE [facility] Comment on above: Performed By: #### C BC #### [facility] [address] [place] [address] Dr. Sofia Payne PROF CHEM 8 (BAS METB)on Anion gap [Moles/Vol] 8.7 mmol/L Normal [facility] Comment on above: Performed By: #### C BC #### [facility] [address] [address] [address] Sofia Payne Calcium [Mass/Vol] 8.5 mg/dL Normal 8.5-10.1 [facility] Comment on above: Performed By: #### C BC #### [facility] [address] [address] [address] Sofia Payne Chloride [Moles/Vol] 103 mmol/L Normal 98-107 [facility] Comment on above: Performed By: #### C BC #### [facility] [address] [place] [address] Dr. Sofia Payne CO2 [Moles/Vol] 27.7 mmol/L Normal 21.0-32.0 [facility] Comment on above: Performed By: #### C BC #### [facility] [address] [place] [address] Dr. Sofia Payne Creatinine [Mass/Vol] 0.80 mg/dL Normal 0.55-1.02 [facility] Comment on above: Performed By: #### C BC #### [facility] [address] [place] [address] Dr. Sofia Payne EGFR-AF ALGERIAN >60 Normal >=60 [facility] Comment on above: Performed By: #### C BC #### [facility] [address] [place] [address] Dr. Sofia Payne EGFR-NON AF ALGERIAN >60 Normal >=60 [facility] Comment on above: Performed By: #### C BC #### [facility] [address] [address] [address] Sofia Payne Glucose [Mass/Vol] 89 mg/dL Normal 74-106 [facility] Comment on above: Performed By: #### C BC #### [facility] [address] [place] [address] Dr. Sofia Payne Potassium [Moles/Vol] 3.9 mmol/L Normal 3.5-5.1 [facility] Comment on above: Performed By: #### C BC #### [facility] [address] [place] [address] Dr. Sofia Payne Sodium [Moles/Vol] 136 mmol/L Normal 136-145 [facility] Comment on above: Performed By: #### C BC #### [facility] [address] [place] [address] Dr. Sofia Payne Urea nitrogen [Mass/Vol] 8.0 mg/dL Normal 7.0-18.0 [facility] Comment on above: Performed By: #### C BC #### [facility] [address] [place] [address] Dr. Sofia Payne Urea nitrogen/Creatinine [Mass ratio] 10.0 mg/mg Normal [facility] Comment on above: Performed By: #### C BC #### [facility] [address] [place] [address] Dr. Sofia Payne URINE MICROSCOPIC ONLYon BACTERIA NONE SEEN Normal NONE SEEN [facility] Comment on above: Performed By: #### C BC #### [facility] [address] [place] [address] Dr. Sofia Payne Bacteria identified Cx Nom (U) NOT INDICATED Normal [facility] Comment on above: Performed By: #### C BC #### [facility] [address] [place] [address] Dr. Sofia Payne CAST NONE SEEN Normal NONE SEEN [facility] Comment on above: Performed By: #### C BC #### [facility] [address] [place] [address] Dr. Sofia Payne Crystals LM Nom (Urine sed) NONE SEEN Normal NONE SEEN [facility] Comment on above: Performed By: #### C BC #### [facility] [address] [place] [address] Dr. Sofia Payne Epithelial cells LM Ql (Urine sed) MANY Abnormal NONE SEEN /RARE [facility] Comment on above: Performed By: #### C BC #### [facility] [address] [place] [address] Dr. Sofia Payne MUCOUS TRACE Abnormal NONE SEEN [facility] Comment on above: Performed By: #### C BC #### [facility] [address] [address] [address] Sofia Payne RBC NONE SEEN Abnormal 0-2 [facility] Comment on above: Performed By: #### C BC #### [facility] [address] [address] [address] Sofia Payne WBC 2-5 Abnormal NONE SEEN [facility] Comment on above: Performed By: #### C BC #### [facility] [address] [address] [address] Sofia Payne NEFTALI by IFAon 04-25-2022 Antinuclear Antibodies, IFA Negative Normal [facility] Comment on above: Result Comment: Nega tive <1:80 Borderline 1:80 Positive >1:80 ICAP nomenclature: AC-0 For more information about Hep-2 cell patterns use ANApatterns.org, the official website for the International Consensus on Antinuclear Antibody (NEFTALI) Patterns (ICAP). Performed By: #### C BC #### [facility] [address] [place] [address] Dr. Sofia Payne ANTISTREPTOLYSIN O AB (ASO)o n 04-24-2022 Antistreptolysin O Ab 65.9 IU/mL Normal 0.0-200.0 [facility] Comment on above: Performed By: #### C BC #### [facility] [address] [place] [address] Dr. Sofia Payne RHEUMATOID FACTORon 04-24-20 RA Latex Turbid. <10.0 Normal <14.0 [facility] Comment on above: Performed By: #### C BC #### [facility] [address] [place] [address] Dr. Sofia aPyne CBC AUTO DIFFon 04-23-2022 BASO # 0.0 103/ul Normal 0.0-0.1 [facility] Comment on above: Performed By: #### C BC #### [facility] [address] [address] [address] Sofia Payne Basophils/100 WBC (Bld) 0.7 % Normal 0.2-2.0 [facility] Comment on above: Performed By: #### C BC #### [facility] [address] [place] [address] Dr. Sofia Payne EO # 0.1 103/ul Normal 0.0-0.7 [facility] Comment on above: Performed By: #### C BC #### [facility] [address] [place] [address] Dr. Sofia Payne Eosinophils/100 WBC (Bld) 3.3 % Normal 0.9-7.0 [facility] Comment on above: Performed By: #### C BC #### [facility] [address] [place] [address] Dr. Sofia Payne Erythrocyte distribution width (RBC) [Ratio] 12.5 % Normal 11.0-15.0 [facility] Comment on above: Performed By: #### C BC #### [facility] [address] [place] [address] Dr. Sofia Payne Hematocrit (Bld) [Volume fraction] 40.9 % Normal 36.0-48.0 [facility] Comment on above: Performed By: #### C BC #### [facility] [address] [place] [address] Dr. Sofia Payne Hemoglobin (Bld) [Mass/Vol] 14.4 g/dL Normal 12.0-16.0 [facility] Comment on above: Performed By: #### C BC #### [facility] [address] [place] [address] Dr. Sofia Payne IG # 0.01 10e3/ul Normal 0.00-0.03 [facility] Comment on above: Performed By: #### C BC #### [facility] [address] [place] [address] Dr. Sofia Payne IG % 0.2 % Normal 0.0-0.5 [facility] Comment on above: Performed By: #### C BC #### [facility] [address] [place] [address] Dr. Sofia Payne LYMPH # 1.6 103/ul Normal 1.2-3.8 [facility] Comment on above: Performed By: #### C BC #### [facility] [address] [place] [address] Dr. Sofia Payne Lymphocytes/100 WBC (Bld) 36.3 % Normal 20.5-60.0 [facility] Comment on above: Performed By: #### C BC #### [facility] [address] [place] [address] Dr. Sofia Payne MANUAL DIFF REQ NO Normal [facility] Comment on above: Performed By: #### C BC #### [facility] [address] [place] [address] Dr. Sofia Payne MCH (RBC) [Entitic mass] 30.2 pg Normal 26.7-34.0 [facility] Comment on above: Performed By: #### C BC #### [facility] [address] [place] [address] Dr. Sofia Payne MCHC (RBC) [Mass/Vol] 35.2 g/dL Normal 29.9-35.2 [facility] Comment on above: Performed By: #### C BC #### [facility] [address] [place] [address] Dr. Sofia Payne MCV (RBC) [Entitic vol] 85.7 fL Normal 81.0-99.0 [facility] Comment on above: Performed By: #### C BC #### [facility] [address] [place] [address] Dr. Sofia Payne MONO # 0.3 103/ul Normal 0.3-0.8 [facility] Comment on above: Performed By: #### C BC #### [facility] [address] [place] [address] Dr. Sofia Payne Monocytes/100 WBC (Bld) 8.0 % Normal 1.7-12.0 [facility] Comment on above: Performed By: #### C BC #### [facility] [address] [place] [address] Dr. Sofia Payne NEUT # 2.2 103/ul Normal 1.4-6.5 [facility] Comment on above: Performed By: #### C BC #### [facility] [address] [place] [address] Dr. Sofia Payne Neutrophils/100 WBC (Bld) 51.5 % Normal 43.0-75.0 [facility] Comment on above: Performed By: #### C BC #### [facility] [address] [place] [address] Dr. Sofia Payne Platelet mean volume (Bld) [Entitic vol] 11.5 fL Normal 9.5-13.5 [facility] Comment on above: Performed By: #### C BC #### [facility] [address] [place] [address] Dr. Sofia Payne PLT 121 103/ul Critically low 150-450 [facility] Comment on above: Performed By: #### C BC #### [facility] [address] [place] [address] Dr. Sofia Payne RBC 4.77 106/ul Normal 4.20-5.40 [facility] Comment on above: Performed By: #### C BC #### [facility] [address] [place] [address] Dr. Sofia Payne WBC 4.3 103/ul Normal 4.0-11.0 [facility] Comment on above: Performed By: #### C BC #### [facility] [address] [place] [address] Dr. Sfoia Payne CRPon 04-23-2022 CRP [Mass/Vol] mg/L Normal <=1.0 [facility] Comment on above: Performed By: #### C RP, CMP, TSH, URIC #### [facility] [address] [place] [address] Dr. Sofia Payne FREE T4on 04-23-2022 Free T4 [Mass/Vol] 1.01 ng/dL Normal 0.76-1.46 [facility] Comment on above: Performed By: #### F T4 #### [facility] [address] [place] [address] Dr. Sofia Payne PROF 14(COMP METB)on 022 Albumin [Mass/Vol] 3.7 g/dL Normal 3.4-5.0 [facility] Comment on above: Performed By: #### C RP, CMP, TSH, URIC #### [facility] [address] [place] [address] Dr. Sofia Payne Albumin/Globulin [Mass ratio] 1.1 {ratio} Normal [facility] Comment on above: Performed By: #### C RP, CMP, TSH, URIC #### [facility] [address] [place] [address] Dr. Sofia Payne ALP [Catalytic activity/Vol] 94 U/L Normal 46-116 [facility] Comment on above: Performed By: #### C RP, CMP, TSH, URIC #### [facility] [address] [place] [address] Dr. Sofia Payne ALT [Catalytic activity/Vol] 14 U/L Normal 14-59 [facility] Comment on above: Performed By: #### C RP, CMP, TSH, URIC #### [facility] [address] [place] [address] Dr. Sofia Payne Anion gap [Moles/Vol] 13.5 mmol/L Normal [facility] Comment on above: Performed By: #### C RP, CMP, TSH, URIC #### [facility] [address] [place] [address] Dr. Sofia Payne AST [Catalytic activity/Vol] 18 U/L Normal 15-37 [facility] Comment on above: Performed By: #### C RP, CMP, TSH, URIC #### [facility] [address] [place] [address] Dr. Sofia Payne Bilirubin [Mass/Vol] 0.3 mg/dL Normal 0.2-1.0 [facility] Comment on above: Performed By: #### C RP, CMP, TSH, URIC #### [facility] [address] [place] [address] Dr. Sofia Payne Calcium [Mass/Vol] 8.5 mg/dL Normal 8.5-10.1 [facility] Comment on above: Performed By: #### C RP, CMP, TSH, URIC #### [facility] [address] [address] [address] Sofia Payne Chloride [Moles/Vol] 104 mmol/L Normal 98-107 [facility] Comment on above: Performed By: #### C RP, CMP, TSH, URIC #### [facility] [address] [address] [address] Sofia Payne CO2 [Moles/Vol] 23.7 mmol/L Normal 21.0-32.0 [facility] Comment on above: Performed By: #### C RP, CMP, TSH, URIC #### [facility] [address] [address] [address] Sofia Payne Creatinine [Mass/Vol] 0.61 mg/dL Normal 0.55-1.02 [facility] Comment on above: Performed By: #### C RP, CMP, TSH, URIC #### [facility] [address] [place] [address] Dr. Sofia Payne EGFR-AF ALGERIAN >60 Normal >=60 [facility] Comment on above: Performed By: #### C RP, CMP, TSH, URIC #### [facility] [address] [place] [address] Dr. Sofia Payne EGFR-NON AF ALGERIAN >60 Normal >=60 [facility] Comment on above: Performed By: #### C RP, CMP, TSH, URIC #### [facility] [address] [place] [address] Dr. Sofia Payne Globulin (S) [Mass/Vol] 3.5 g/dL Normal [facility] Comment on above: Performed By: #### C RP, CMP, TSH, URIC #### [facility] [address] [place] [address] Dr. Sofia Payne Glucose [Mass/Vol] 86 mg/dL Normal 74-106 [facility] Comment on above: Performed By: #### C RP, CMP, TSH, URIC #### [facility] [address] [address] [address] Sofia Payne Potassium [Moles/Vol] 4.1 mmol/L Normal 3.5-5.1 [facility] Comment on above: Performed By: #### C RP, CMP, TSH, URIC #### [facility] [address] [address] [address] Sofia Payne Protein [Mass/Vol] 7.2 g/dL Normal 6.4-8.2 [facility] Comment on above: Performed By: #### C RP, CMP, TSH, URIC #### [facility] [address] [address] [address] Sofia Payne Sodium [Moles/Vol] 137 mmol/L Normal 136-145 [facility] Comment on above: Performed By: #### C RP, CMP, TSH, URIC #### [facility] [address] [place] [address] Dr. Sofia Payne Urea nitrogen [Mass/Vol] 6.0 mg/dL Critically low 7.0-18.0 [facility] Comment on above: Performed By: #### C RP, CMP, TSH, URIC #### [facility] [address] [place] [address] Dr. Sofia Payne Urea nitrogen/Creatinine [Mass ratio] 9.8 mg/mg Normal [facility] Comment on above: Performed By: #### C RP, CMP, TSH, URIC #### [facility] [address] [place] [address] Dr. Sofia Payne [facility] 10 mm/hr Normal <=20 [facility] Comment on above: Performed By: #### C BC #### [facility] [address] [place] [address] Dr. Sofia Payne TSHon 04-23-2022 TSH 2.555 uIU/mL Normal 0.358-3.740 [facility] Comment on above: Performed By: #### C RP, CMP, TSH, URIC #### [facility] [address] [place] [address] Dr. Sofia Payne URIC ACID SERUMon 04-23-2022 Urate [Mass/Vol] 4.2 mg/dL Normal 2.6-6.0 [facility] Comment on above: Performed By: #### C RP, CMP, TSH, URIC #### [facility] [address] [address] [address] Sofia Payne CBC AUTO DIFFon 12-30-2021 BASO # 0.0 103/ul Normal 0.0-0.1 [facility] Comment on above: Performed By: #### C BC #### [facility] [address] [address] [address] Sofia Payne Basophils/100 WBC (Bld) 0.5 % Normal 0.2-2.0 [facility] Comment on above: Performed By: #### C BC #### [facility] [address] [address] [address] Sofia Payne EO # 0.1 103/ul Normal 0.0-0.7 [facility] Comment on above: Performed By: #### C BC #### [facility] [address] [place] [address] Dr. Sofia Payne Eosinophils/100 WBC (Bld) 3.1 % Normal 0.9-7.0 [facility] Comment on above: Performed By: #### C BC #### [facility] [address] [address] [address] Sofia Payne Erythrocyte distribution width (RBC) [Ratio] 13.1 % Normal 11.0-15.0 [facility] Comment on above: Performed By: #### C BC #### [facility] [address] [place] [address] Dr. Sofia Payne Hematocrit (Bld) [Volume fraction] 43.4 % Normal 36.0-48.0 [facility] Comment on above: Performed By: #### C BC #### [facility] [address] [address] [address] Sofia Payne Hemoglobin (Bld) [Mass/Vol] 14.8 g/dL Normal 12.0-16.0 [facility] Comment on above: Performed By: #### C BC #### [facility] [address] [address] [address] Sofia Payne IG # 0.01 10e3/ul Normal 0.00-0.03 [facility] Comment on above: Performed By: #### C BC #### [facility] [address] [place] [address] Dr. Sofia Payne IG % 0.3 % Normal 0.0-0.5 [facility] Comment on above: Performed By: #### C BC #### [facility] [address] [place] [address] Dr. Sofia Payne LYMPH # 1.6 103/ul Normal 1.2-3.8 [facility] Comment on above: Performed By: #### C BC #### [facility] [address] [place] [address] Dr. Sofia Payne Lymphocytes/100 WBC (Bld) 41.2 % Normal 20.5-60.0 [facility] Comment on above: Performed By: #### C BC #### [facility] [address] [place] [address] Dr. Sofia Payne MANUAL DIFF REQ NO Normal [facility] Comment on above: Performed By: #### C BC #### [facility] [address] [place] [address] Dr. Sofia Payne MCH (RBC) [Entitic mass] 30.0 pg Normal 26.7-34.0 [facility] Comment on above: Performed By: #### C BC #### [facility] [address] [place] [address] Dr. Sofia Payne MCHC (RBC) [Mass/Vol] 34.1 g/dL Normal 29.9-35.2 [facility] Comment on above: Performed By: #### C BC #### [facility] [address] [place] [address] Dr. Sofia Payne MCV (RBC) [Entitic vol] 88.0 fL Normal 81.0-99.0 [facility] Comment on above: Performed By: #### C BC #### [facility] [address] [place] [address] Dr. Sofia Payne MONO # 0.4 103/ul Normal 0.3-0.8 [facility] Comment on above: Performed By: #### C BC #### [facility] [address] [place] [address] Dr. Sofia Payne Monocytes/100 WBC (Bld) 9.8 % Normal 1.7-12.0 [facility] Comment on above: Performed By: #### C BC #### [facility] [address] [place] [address] Dr. Sofia Payne NEUT # 1.8 103/ul Normal 1.4-6.5 [facility] Comment on above: Performed By: #### C BC #### [facility] [address] [place] [address] Dr. Sofia Payne Neutrophils/100 WBC (Bld) 45.1 % Normal 43.0-75.0 [facility] Comment on above: Performed By: #### C BC #### [facility] [address] [place] [address] Dr. Sofia Payne Platelet mean volume (Bld) [Entitic vol] 11.9 fL Normal 9.5-13.5 [facility] Comment on above: Performed By: #### C BC #### [facility] [address] [place] [address] Dr. Sofia Payne PLT 142 103/ul Critically low 150-450 [facility] Comment on above: Performed By: #### C BC #### [facility] [address] [place] [address] Dr. Sofia Payne RBC 4.93 106/ul Normal 4.20-5.40 [facility] Comment on above: Performed By: #### C BC #### [facility] [address] [place] [address] Dr. Sofia Payne WBC 3.9 103/ul Critically low 4.0-11.0 [facility] Comment on above: Performed By: #### C BC #### [facility] [address] [place] [address] Dr. Sofia Payne CULTURE URINEon 12-30-2021 CULTURE URINE Culture Observations : HEAVY GROWTH OF MIXED GENITAL SHARAN. NO POTENTIAL PATHOGENS SEEN. Normal [facility] Comment on above: Performed By: #### C BC #### [facility] [address] [place] [address] Dr. Sofia Payne FREE T4on 12-30-2021 Free T4 [Mass/Vol] 0.98 ng/dL Normal 0.76-1.46 [facility] Comment on above: Performed By: #### C BC #### [facility] [address] [place] [address] Dr. Sofia Payne MONOon 12-30-2021 Monocytes (Bld) [#/Vol] Positive Abnormal NEGATIVE [facility] Comment on above: Result Comment: Prev iously reported as: NEGATIVE On 12/30/2021 19:06 By JAW Performed By: #### M CHERYL #### [facility] [address] [place] [address] Dr. Sofia Payne PROF 14(COMP METB)on 022 Albumin [Mass/Vol] 4.1 g/dL Normal 3.4-5.0 [facility] Comment on above: Performed By: #### C BC #### [facility] [address] [place] [address] Dr. Sofia Payne Albumin/Globulin [Mass ratio] 1.2 {ratio} Normal [facility] Comment on above: Performed By: #### C BC #### [facility] [address] [place] [address] Dr. Sofia Payne ALP [Catalytic activity/Vol] 103 U/L Normal 46-116 [facility] Comment on above: Performed By: #### C BC #### [facility] [address] [place] [address] Dr. Sofia Payne ALT [Catalytic activity/Vol] 88 U/L Critically high 14-59 [facility] Comment on above: Performed By: #### C BC #### [facility] [address] [place] [address] Dr. Sofia Payne Anion gap [Moles/Vol] 14.0 mmol/L Normal [facility] Comment on above: Performed By: #### C BC #### [facility] [address] [place] [address] Dr. Sofia Payne AST [Catalytic activity/Vol] 24 U/L Normal 15-37 [facility] Comment on above: Performed By: #### C BC #### [facility] [address] [place] [address] Dr. Sofia Payne Bilirubin [Mass/Vol] 0.3 mg/dL Normal 0.2-1.0 [facility] Comment on above: Performed By: #### C BC #### [facility] [address] [place] [address] Dr. Sofia Payne Calcium [Mass/Vol] 9.2 mg/dL Normal 8.5-10.1 [facility] Comment on above: Performed By: #### C BC #### [facility] [address] [place] [address] Dr. Sofia Payne Chloride [Moles/Vol] 105 mmol/L Normal 98-107 [facility] Comment on above: Performed By: #### C BC #### [facility] [address] [place] [address] Dr. Sofia Payne CO2 [Moles/Vol] 25.4 mmol/L Normal 21.0-32.0 [facility] Comment on above: Performed By: #### C BC #### [facility] [address] [place] [address] Dr. Sofia Payne Creatinine [Mass/Vol] 0.74 mg/dL Normal 0.55-1.02 [facility] Comment on above: Performed By: #### C BC #### [facility] [address] [place] [address] Dr. Sofia Payne EGFR-AF ALGERIAN >60 Normal >=60 [facility] Comment on above: Performed By: #### C BC #### [facility] [address] [place] [address] Dr. Sofia Payne EGFR-NON AF ALGERIAN >60 Normal >=60 [facility] Comment on above: Performed By: #### C BC #### [facility] [address] [place] [address] Dr. Sofia Payne Globulin (S) [Mass/Vol] 3.3 g/dL Normal [facility] Comment on above: Performed By: #### C BC #### [facility] [address] [address] [address] Sofia Payne Glucose [Mass/Vol] 96 mg/dL Normal 74-106 [facility] Comment on above: Performed By: #### C BC #### [facility] [address] [address] [address] Sofia Payne Potassium [Moles/Vol] 4.4 mmol/L Normal 3.5-5.1 [facility] Comment on above: Performed By: #### C BC #### [facility] [address] [address] [address] Sofia Payne Protein [Mass/Vol] 7.4 g/dL Normal 6.4-8.2 [facility] Comment on above: Performed By: #### C BC #### [facility] [address] [place] [address] Dr. Sofia Payne Sodium [Moles/Vol] 140 mmol/L Normal 136-145 [facility] Comment on above: Performed By: #### C BC #### [facility] [address] [address] [address] Sofia Payne Urea nitrogen [Mass/Vol] 10.0 mg/dL Normal 7.0-18.0 [facility] Comment on above: Performed By: #### C BC #### [facility] [address] [address] [address] Sofia Payne Urea nitrogen/Creatinine [Mass ratio] 13.5 mg/mg Normal [facility] Comment on above: Performed By: #### C BC #### [facility] [address] [address] [address] Sofia Payne TSHon 12-30-2021 TSH 1.676 uIU/mL Normal 0.358-3.740 [facility] Comment on above: Performed By: #### C BC #### [facility] [address] [address] [address] Sofia Payne UA RANDOM W/MICROSCOPICon AMORPHOUS CRYSTALS FEW Normal [facility] Comment on above: Performed By: #### C BC #### [facility] [address] [place] [address] Dr. Sofia Payne BACTERIA MODERATE Abnormal NONE SEEN [facility] Comment on above: Performed By: #### C BC #### [facility] [address] [place] [address] Dr. Sofia Payne Bilirubin Ql (U) Negative Normal NEGATIVE [facility] Comment on above: Performed By: #### C BC #### [facility] [address] [place] [address] Dr. Sofia Payne CAST NONE SEEN Normal NONE SEEN [facility] Comment on above: Performed By: #### C BC #### [facility] [address] [place] [address] Dr. Sofia Payne Clarity (U) SL CLOUDY Abnormal CLEAR [facility] Comment on above: Performed By: #### C BC #### [facility] [address] [place] [address] Dr. Sofia Payne Color (U) YELLOW Normal YELLOW [facility] Comment on above: Performed By: #### C BC #### [facility] [address] [place] [address] Dr. Sofia Payne Crystals LM Nom (Urine sed) SEEN Abnormal NONE SEEN [facility] Comment on above: Performed By: #### C BC #### [facility] [address] [place] [address] Dr. Sofia Payne Epithelial cells LM Ql (Urine sed) FEW Abnormal NONE SEEN /RARE [facility] Comment on above: Performed By: #### C BC #### [facility] [address] [place] [address] Dr. Sofia Payne Glucose Ql (U) Negative Normal NEGATIVE [facility] Comment on above: Performed By: #### C BC #### [facility] [address] [place] [address] Dr. Sofia Payne Hemoglobin Ql (U) MODERATE Abnormal NEGATIVE [facility] Comment on above: Performed By: #### C BC #### [facility] [address] [place] [address] Dr. Sofia Payne Ketones Ql (U) Negative Normal NEGATIVE [facility] Comment on above: Performed By: #### C BC #### [facility] [address] [place] [address] Dr. Sofia Payne LEUKOCYTES SMALL Abnormal NEGATIVE [facility] Comment on above: Performed By: #### C BC #### [facility] [address] [place] [address] Dr. Sofia Payne MUCOUS NONE SEEN Normal NONE SEEN [facility] Comment on above: Performed By: #### C BC #### [facility] [address] [place] [address] Dr. Sofia Payne Nitrite Ql (U) Negative Normal NEGATIVE [facility] Comment on above: Performed By: #### C BC #### [facility] [address] [place] [address] Dr. Sofia Payne pH (U) 6.0 [pH] Normal 5-9 [facility] Comment on above: Performed By: #### C BC #### [facility] [address] [place] [address] Dr. Sofia Payne RBC 10-20 Abnormal 0-2 [facility] Comment on above: Performed By: #### C BC #### [facility] [address] [place] [address] Dr. Sofia Payne SPEC GRAVITY >=1.030 Abnormal 1.005-<=1.025 [facility] Comment on above: Performed By: #### C BC #### [facility] [address] [place] [address] Dr. Sofia Payne UA PROTEIN Negative Normal NEGATIVE/ TRACE [facility] Comment on above: Performed By: #### C BC #### [facility] [address] [place] [address] Dr. Sofia Payne Urobilinogen Qn (U) 0.2 {Kristopher'U}/dL Normal 0.2 - 1. 0 [facility] Comment on above: Performed By: #### C BC #### [facility] [address] [place] [address] Dr. Sofia Payne WBC 5-10 Abnormal NONE SEEN [facility] Comment on above: Performed By: #### C BC #### [facility] [address] [place] [address] Dr. Sofia Payne CBC W MANUAL DIFFon 12-25-19 22 ATYPICAL LYMPH # Normal [facility] Comment on above: Performed By: #### C BC #### [facility] [address] [place] [address] Dr. Sofia Payne ATYPICAL LYMPH % Normal [facility] Comment on above: Performed By: #### C BC #### [facility] [address] [place] [address] Dr. Sofia Payne BAND # 0.1 103/ul Normal 0.0-0.3 [facility] Comment on above: Performed By: #### C BC #### [facility] [address] [place] [address] Dr. Sofia Payne BAND % 2 % Normal 0-5 [facility] Comment on above: Performed By: #### C BC #### [facility] [address] [place] [address] Dr. Sofia Payne BASOM # 0.00 103/ul Normal 0.00-0.10 [facility] Comment on above: Performed By: #### C BC #### [facility] [address] [place] [address] Dr. Sofia Payne BASOM % 0.0 % Critically low 0.2-2.0 [facility] Comment on above: Performed By: #### C BC #### [facility] [address] [place] [address] Dr. Sofia Payne BLAST # Normal [facility] Comment on above: Performed By: #### C BC #### [facility] [address] [place] [address] Dr. Sofia Payne BLAST % Normal [facility] Comment on above: Performed By: #### C BC #### [facility] [facility] [address] [place] [address] Dr. Sofia Payne CORRECTED WBC Normal 4.0-11.0 [facility] Comment on above: Performed By: #### C BC #### [facility] [address] [place] [address] Dr. Sofia Payne EOS # 0.00 103/ul Normal 0.00-0.70 [facility] Comment on above: Performed By: #### C BC #### [facility] [address] [place] [address] Dr. Sofia Payne EOS% 0.0 % Critically low 0.9-7.0 [facility] Comment on above: Performed By: #### C BC #### [facility] [address] [address] [address] Sofia Payne HCT 40.9 % Normal 36.0-48.0 [facility] Comment on above: Performed By: #### C BC #### [facility] [address] [place] [address] Dr. Sofia Payne HGB 13.8 g/dl Normal 12.0-16.0 [facility] Comment on above: Performed By: #### C BC #### [facility] [address] [place] [address] Dr. Sofia Payne LYMPHM # 0.43 103/ul Critically low 1.20-3.80 [facility] Comment on above: Performed By: #### C BC #### [facility] [address] [place] [address] Dr. Sofia Payne LYMPHM% 15.0 % Critically low 20.5-60.0 [facility] Comment on above: Performed By: #### C BC #### [facility] [address] [place] [address] Dr. Sofia Payne MCH 30.4 pg Normal 26.7-34.0 [facility] Comment on above: Performed By: #### C BC #### [facility] [address] [place] [address] Dr. Sofia Payne MCHC 33.7 g/dl Normal 29.9-35.2 [facility] Comment on above: Performed By: #### C BC #### [facility] [address] [place] [address] Dr. Sofia Payne MCV 90.1 fL Normal 81.0-99.0 [facility] Comment on above: Performed By: #### C BC #### [facility] [address] [address] [address] Sofia Payne METAMYELOCYTE # Normal [facility] Comment on above: Performed By: #### C BC #### [facility] [address] [address] [address] Sofia Payne METAMYELOCYTE % Normal [facility] Comment on above: Performed By: #### C BC #### [facility] [address] [address] [address] Sofia Payne MONOM# 0.41 103/ul Normal 0.30-0.80 [facility] Comment on above: Performed By: #### C BC #### [facility] [address] [place] [address] Dr. Sofia Payne MONOM% 14.0 % Critically high 1.7-12.0 [facility] Comment on above: Performed By: #### C BC #### [facility] [address] [place] [address] Dr. Sofia Payne MPV 11.0 fL Normal 9.5-13.5 [facility] Comment on above: Performed By: #### C BC #### [facility] [address] [place] [address] Dr. Sofia Payne MYELOCYTE # Normal [facility] Comment on above: Performed By: #### C BC #### [facility] [address] [place] [address] Dr. Sofia Payne MYELOCYTE % Normal [facility] Comment on above: Performed By: #### C BC #### [facility] [address] [place] [address] Dr. Sofia Payne NRBC Normal [facility] Comment on above: Performed By: #### C BC #### [facility] [address] [place] [address] Dr. Sofia Payne PLT 98 103/ul Critically low 150-450 [facility] Comment on above: Performed By: #### C BC #### [facility] [address] [place] [address] Dr. Sofia Payne RBC 4.54 106/ul Normal 4.20-5.40 [facility] Comment on above: Performed By: #### C BC #### [facility] [address] [place] [address] Dr. Sofia Payne RDW 13.1 % Normal 11.0-15.0 [facility] Comment on above: Performed By: #### C BC #### [facility] [address] [place] [address] Dr. Sofia Payne SEG # 2.00 103/ul Normal 1.40-6.50 [facility] Comment on above: Performed By: #### C BC #### [facility] [address] [place] [address] Dr. Sofia Payne SEG % 69.0 % Normal 43.0-75.0 [facility] Comment on above: Performed By: #### C BC #### [facility] [address] [place] [address] Dr. Sofia Payne WBC 2.9 103/ul Critically low 4.0-11.0 [facility] Comment on above: Performed By: #### C BC #### [facility] [address] [place] [address] ABD/PELVIS WO CONon [...] account for patient's symptoms. Electronically authenticated by: VIKAS ROMAN Date: 2021-12-24 12:09 Normal [facility] CULTURE URINEon 12-24-2021 CULTURE URINE Culture Observations : NO GROWTH. Normal [facility] Comment on above: Performed By: #### C BC #### [facility] [address] [place] [address] Dr. Sofia Payne ER URINE PROFILEon 2 Bilirubin Ql (U) SMALL Abnormal NEGATIVE [facility] Comment on above: Performed By: #### C BC #### [facility] [address] [place] [address] Dr. Sofia Payne Clarity (U) SL CLOUDY Abnormal CLEAR [facility] Comment on above: Performed By: #### C BC #### [facility] [address] [place] [address] Dr. Sofia Payne Color (U) DK. ORANGE Abnormal YELLOW [facility] Comment on above: Performed By: #### C BC #### [facility] [address] [place] [address] Dr. Sofia Payne ERUKeyanna A micrscopic examination will be performed if indicated. Normal [facility] Comment on above: Performed By: #### C BC #### [facility] [address] [place] [address] Dr. Sofia Payne Glucose Ql (U) Negative Normal NEGATIVE [facility] Comment on above: Performed By: #### C BC #### [facility] [address] [place] [address] Dr. Sofia Payne Hemoglobin Ql (U) LARGE Abnormal NEGATIVE [facility] Comment on above: Performed By: #### C BC #### [facility] [address] [place] [address] Dr. Sofia Payne Ketones Ql (U) 40 mg/dl Abnormal NEGATIVE [facility] Comment on above: Performed By: #### C BC #### [facility] [address] [place] [address] Dr. Sofia Payne LEUKOCYTES Negative Normal NEGATIVE [facility] Comment on above: Performed By: #### C BC #### [facility] [address] [place] [address] Dr. Sofia Payne Nitrite Ql (U) Negative Normal NEGATIVE [facility] Comment on above: Performed By: #### C BC #### [facility] [address] [place] [address] Dr. Sofia Payne pH (U) 5.5 [pH] Normal 5-9 [facility] Comment on above: Performed By: #### C BC #### [facility] [address] [place] [address] Dr. Sofia Payne Protein (U) [Mass/Vol] 100 mg/dL Abnormal NEGATIVE/ TRACE [facility] Comment on above: Performed By: #### C BC #### [facility] [address] [place] [address] Dr. Sofia Payne SPEC GRAVITY >=1.030 Abnormal 1.005-<=1.025 [facility] Comment on above: Performed By: #### C BC #### [facility] [address] [place] [address] Dr. Sofia Payne UR MICRO IND INDICATED Normal [facility] Comment on above: Performed By: #### C BC #### [facility] [address] [place] [address] Dr. Sofia Payne Urobilinogen Qn (U) 1.0 {Kristopher'U}/dL Normal 0.2 - 1. 0 [facility] Comment on above: Performed By: #### C BC #### [facility] [address] [place] [address] Dr. Sofia Payne PROF 14(COMP METB)on 022 Albumin [Mass/Vol] 3.8 g/dL Normal 3.4-5.0 [facility] Comment on above: Performed By: #### C BC #### [facility] [address] [place] [address] Dr. Sofia Payne Albumin/Globulin [Mass ratio] 1.2 {ratio} Normal [facility] Comment on above: Performed By: #### C BC #### [facility] [address] [place] [address] Dr. Sofia Payne ALP [Catalytic activity/Vol] 78 U/L Normal 46-116 [facility] Comment on above: Performed By: #### C BC #### [facility] [address] [place] [address] Dr. Sofia Payne ALT [Catalytic activity/Vol] 9 U/L Critically low 14-59 [facility] Comment on above: Performed By: #### C BC #### [facility] [address] [place] [address] Dr. Sofia Payne Anion gap [Moles/Vol] 13.4 mmol/L Normal [facility] Comment on above: Performed By: #### C BC #### [facility] [address] [place] [address] Dr. Sofia Payne AST [Catalytic activity/Vol] 13 U/L Critically low 15-37 [facility] Comment on above: Performed By: #### C BC #### [facility] [address] [place] [address] Dr. Sofia Payne Bilirubin [Mass/Vol] 0.2 mg/dL Normal 0.2-1.0 [facility] Comment on above: Performed By: #### C BC #### [facility] [address] [place] [address] Dr. Sofia Payne Calcium [Mass/Vol] 8.2 mg/dL Critically low 8.5-10.1 [facility] Comment on above: Performed By: #### C BC #### [facility] [address] [place] [address] Dr. Sofia Payne Chloride [Moles/Vol] 106 mmol/L Normal 98-107 [facility] Comment on above: Performed By: #### C BC #### [facility] [address] [place] [address] Dr. Sofia Payne CO2 [Moles/Vol] 24.9 mmol/L Normal 21.0-32.0 [facility] Comment on above: Performed By: #### C BC #### [facility] [address] [place] [address] Dr. Sofia Payne Creatinine [Mass/Vol] 0.93 mg/dL Normal 0.55-1.02 [facility] Comment on above: Performed By: #### C BC #### [facility] [address] [address] [address] Sofia Payne EGFR-AF ALGERIAN >60 Normal >=60 [facility] Comment on above: Performed By: #### C BC #### [facility] [address] [place] [address] Dr. Sofia Payne EGFR-NON AF ALGERIAN >60 Normal >=60 [facility] Comment on above: Performed By: #### C BC #### [facility] [address] [place] [address] Dr. Sofia Payne Globulin (S) [Mass/Vol] 3.3 g/dL Normal [facility] Comment on above: Performed By: #### C BC #### [facility] [address] [place] [address] Dr. Sofia Payne Glucose [Mass/Vol] 94 mg/dL Normal 74-106 [facility] Comment on above: Performed By: #### C BC #### [facility] [address] [place] [address] Dr. Sofia Payne Potassium [Moles/Vol] 4.3 mmol/L Normal 3.5-5.1 [facility] Comment on above: Performed By: #### C BC #### [facility] [address] [place] [address] Dr. Sofia Payne Protein [Mass/Vol] 7.1 g/dL Normal 6.4-8.2 [facility] Comment on above: Performed By: #### C BC #### [facility] [address] [place] [address] Dr. Sofia Payne Sodium [Moles/Vol] 140 mmol/L Normal 136-145 [facility] Comment on above: Performed By: #### C BC #### [facility] [address] [address] [address] Sofia Payne Urea nitrogen [Mass/Vol] 7.0 mg/dL Normal 7.0-18.0 [facility] Comment on above: Performed By: #### C BC #### [facility] [address] [place] [address] Dr. Sofia Payne Urea nitrogen/Creatinine [Mass ratio] 7.5 mg/mg Normal [facility] Comment on above: Performed By: #### C BC #### [facility] [address] [place] [address] Dr. Sofia Payne URINE MICROSCOPIC ONLYon BACTERIA SMALL Abnormal NONE SEEN [facility] Comment on above: Performed By: #### C BC #### [facility] [address] [place] [address] Dr. Sofia Payne Bacteria identified Cx Nom (U) INDICATED Normal [facility] Comment on above: Performed By: #### C BC #### [facility] [address] [place] [address] Dr. Sofia Payne CAST NONE SEEN Normal NONE SEEN [facility] Comment on above: Performed By: #### C BC #### [facility] [address] [place] [address] Dr. Sofia Payne Crystals LM Nom (Urine sed) NONE SEEN Normal NONE SEEN [facility] Comment on above: Performed By: #### C BC #### [facility] [address] [place] [address] Dr. Sofia Payne Epithelial cells LM Ql (Urine sed) FEW Abnormal NONE SEEN /RARE [facility] Comment on above: Performed By: #### C BC #### [facility] [address] [place] [address] Dr. Sofia Payne MUCOUS NONE SEEN Normal NONE SEEN [facility] Comment on above: Performed By: #### C BC #### [facility] [address] [place] [address] Dr. Sofia Payne RBC (U) [#/Vol] /uL Abnormal 0-2 [facility] Comment on above: Performed By: #### C BC #### [facility] [address] [place], [place] [address] Dr. Sofia Payne WBC 2-5 Abnormal NONE SEEN [facility] Comment on above: Performed By: #### C BC #### [facility] [address] [place], [place] [address] Dr. Sofia Payne Covid-19 PCR ([facility])on SARS-CoV-2 (COVID-19) RNA AMPARO+probe Ql (Unsp spec) Not detected Normal NOT DETECTED [facility] Comment on above: Result Comment: This test is not yet approved or cleared by the [place] FDA. When there are no FDA-approved or cleared tests available, and other criteria are met, FDA can make tests available under an emergency access mechanism called an Emergency Use Authorization (EUA). The EUA for this test is supported by the Tax Map Technician of Health and Human Service's (HHS's) declaration [...] Performed By: #### C BC #### [facility] [address] [place], [place] [address] Dr. Sofia Payne COVID/FLU/RSV RT-PCRon 12-22 SARS-CoV-2 (COVID-19) RNA AMPARO+probe Ql (Unsp spec) Negative [employer] Other COVID/FLU/RSV RT-PCR Negative [facility] [employer] Other COVID/FLU/RSV RT-PCR [facility] [employer] Other Mononucleosis Test, [facility] 0 12-22-2021 Heterophile Ab LA Ql (S) Negative [employer] Other COVID Quick Testingon 2021 Result Negative [employer] Other Quick Strepon 06-04-2021 S. pyogenes Org specific cx Ql (Throat) Negative [employer] Other Quick Strep [employer] Other RAD - Ultrasound Reporton RAD - Ultrasound Report [id number] .00CD:127 Normal [facility] ED Note-Physicianon 02-22-20 20 ED Note-Physician [id number]# 1.00CD:127 [facility] ED Note-Physician [id number]# 1.00CD:127 [facility] ED Note-Physician [id number]# 1.00CD:127 [facility] Physician Referralon 020 Physician Referral [id number]. 00CD:127 Normal [facility] Provider Letteron 02-15-2020 Provider Letter February 15, 2020 LINA ALCANTAR [address] [place] [address] LINA ALCANTAR 1990 Dear Lina Alcantar, You [...] [facility] [address], [place] [address] [facility] Formson 02-03-2020 Forms [id number] .00CD:127 Normal [facility] Ambulatory Clinical Summaryo n 02-01-2020 Ambulatory Clinical Summary {[id number]}CD:[id number] Normal [facility] Patient Educationon 02-01-20 20 Patient Education Family Medicine Urinary Tract Infection [...] Document Reviewed: 06/18/2012 ExitCare? Patient Information ?2013 [employer]. 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 Bhagat. Pt states that since having her son 5 months ago and she has had 4. Last UTI was 01/14/20 and was at [facility]. This has been ongoing since she [...] of Present Illness Reviewed UA, PVR, and [facility] paperwork. There have been no associated fever [...] (N39.0: Urinary tract infection, site not specified) [facility] referred by Dr. Bhagat for recurrent UTIs. [...] for Bactrim 400mg/80mg qd sent to [facility]. All questions/concerns were discussed. Pt. to call [...] Christo LUDWIG, Torres Warner [address] [place] [address] [phone] Additional Instructions: Patient Education Urinary Tract Infection IDolly , personally scribed for Dr. Villafuerte on [...] Protein Urine Dipstick: Negative (02/01/20 09:13:00) Specific [place] Urine Dipstick: 1.025 (02/01/20 09:13:00) Urine Color Urine Dipstick: Yellow (02/01/20 09:13:00) Urobilinogen Urine Dipstick: Normal 0.2-1 EU/dl (02/01/20 09:13:00) pH Urine Dipstick: 5.5 (02/01/20 09:13:00) Normal [facility] Comment on above: Result Comment: Elec tronically Signed By: Christo LUDWIG, Torres Warner\.br\Date and Time Signed: 02/01/20 09:52 EDT\.br\Electronically Co-Signed By: Dolly Duffy MA\.br\Date and Time Co-Signed: 02/01/20 09:29 EDT Vital Signs Date Time Vital Sign Value Performing Clinician Facility 05-31-2024 21:28-0500 Body temperature 97.81 [degF] Rosalie Foster MD Work Phone: [facility] 05-31-2024 21:28-0500 Diastolic blood pressure 87 mm[Hg] Rosalie Foster MD Work Phone: [facility] 05-31-2024 21:28-0500 Heart rate 97 /min Rosalie Foster MD Work Phone: [facility] 05-31-2024 21:28-0500 Respiratory rate 16 /min Rosalie Foster MD Work Phone: [facility] 05-31-2024 21:28-0500 SaO2% (BldA) [Mass fraction] 100 % Rosalie Foster MD Work Phone: [facility] 05-31-2024 21:28-0500 Systolic blood pressure 104 mm[Hg] Rosalie Foster MD Work Phone: [facility] 05-23-2024 09:44-0500 Body mass index (BMI) [Ratio] 36.14 kg/m2 Jefry Lorelei-Nossek SUPERVISOR SCREEN MAKING-SMOG TECHNICIAN Work Phone: [facility] 05-23-2024 09:44-0500 Body weight 92.53 kg Jefry Lorelei-Nossek SUPERVISOR SCREEN MAKING-SMOG TECHNICIAN Work Phone: [facility] 05-23-2024 09:44-0500 Diastolic blood pressure 82 mm[Hg] Jefry Lorelei-Nossek SUPERVISOR SCREEN MAKING-SMOG TECHNICIAN Work Phone: [facility] 05-23-2024 09:44-0500 Heart rate 90 /min Jefry Lorelei-Nossek SUPERVISOR SCREEN MAKING-SMOG TECHNICIAN Work Phone: [facility] 05-23-2024 09:44-0500 Systolic blood pressure 118 mm[Hg] Jefry Lorelei-Nossek SUPERVISOR SCREEN MAKING-SMOG TECHNICIAN Work Phone: [facility] 05-02-2024 09:44-0500 Body mass index (BMI) [Ratio] 36.31 kg/m2 Jefry Lorelei-Nossek SUPERVISOR SCREEN MAKING-SMOG TECHNICIAN Work Phone: [facility] 05-02-2024 09:44-0500 Body weight 92.99 kg Jefry Lorelei-Nossek SUPERVISOR SCREEN MAKING-SMOG TECHNICIAN Work Phone: [facility] 05-02-2024 09:44-0500 Diastolic blood pressure 74 mm[Hg] Jefry Lorelei-Nossek SUPERVISOR SCREEN MAKING-SMOG TECHNICIAN Work Phone: [facility] 05-02-2024 09:44-0500 Heart rate 82 /min Jefry Lorelei-Nossek SUPERVISOR SCREEN MAKING-SMOG TECHNICIAN Work Phone: [facility] 05-02-2024 09:44-0500 Systolic blood pressure 122 mm[Hg] Jefry Lorelei-Nossek SUPERVISOR SCREEN MAKING-SMOG TECHNICIAN Work Phone: [facility] 04-28-2024 11:35-0500 Body height 160 cm Rosario Francine [employer] Work Phone: [facility] 04-28-2024 11:35-0500 Body mass index (BMI) [Ratio] 35.71 kg/m2 Rosario Bettyz [employer] [employer] Work Phone: [facility] 04-28-2024 11:35-0500 Body temperature 98.71 [degF] Rosario Bettyz [employer] [employer] Work Phone: [facility] 04-28-2024 11:35-0500 Body weight 91.44 kg Rosario Bettyz [employer] Work Phone: [facility] 04-28-2024 11:35-0500 Diastolic blood pressure 78 mm[Hg] Rosario Davidhholz [employer] [employer] Work Phone: [facility] 04-28-2024 11:35-0500 Heart rate 93 /min Rosario Ingridholz [employer] [employer] Work Phone: [facility] 04-28-2024 11:35-0500 Respiratory rate 19 /min Rosario Davidhholz [employer] Work Phone: [facility] 04-28-2024 11:35-0500 SaO2% (BldA) [Mass fraction] 100 % Rosarioderek Hernandezsally [employer] Work Phone: [facility] 04-28-2024 11:35-0500 Systolic blood pressure 118 mm[Hg] Rosario Hernandezsally [employer] Work Phone: [facility] 04-22-2024 14:15-0500 Body temperature 97.9 [degF] [facility] 04-22-2024 14:15-0500 Diastolic blood pressure 71 mm[Hg] [facility] 04-22-2024 14:15-0500 Heart rate 86 /min [facility] 04-22-2024 14:15-0500 Respiratory rate 22 /min [facility] 04-22-2024 14:15-0500 SaO2% (BldA) [Mass fraction] 100 % [facility] 04-22-2024 14:15-0500 Systolic blood pressure 107 mm[Hg] [facility] 04-13-2024 10:59-0500 Body height 160 cm Rosario Francine [employer] Work Phone: [facility] 04-13-2024 10:59-0500 Body mass index (BMI) [Ratio] 37.41 kg/m2 Rosario Francine [employer] [employer] Work Phone: [facility] 04-13-2024 10:59-0500 Body temperature 97.81 [degF] Rosario Francine [employer] [employer] Work Phone: [facility] 04-13-2024 10:59-0500 Body weight 95.8 kg Rosario Francine [employer] [employer] Work Phone: [facility] 04-13-2024 10:59-0500 Diastolic blood pressure 78 mm[Hg] Rosario Francine [employer] [employer] Work Phone: [facility] 04-13-2024 10:59-0500 Heart rate 86 /min Rosario Francine [employer] [employer] Work Phone: [facility] 04-13-2024 10:59-0500 Respiratory rate 19 /min Rosario Francine [employer] [employer] Work Phone: [facility] 04-13-2024 10:59-0500 SaO2% (BldA) [Mass fraction] 100 % Rosario Francine [employer] [employer] Work Phone: [facility] 04-13-2024 10:59-0500 Systolic blood pressure 110 mm[Hg] Rosario Francine [facility] Work Phone: [facility] 04-12-2024 09:51-0500 Body mass index (BMI) [Ratio] 36.87 kg/m2 Vonda Cage PA Work Phone: [facility] 04-12-2024 09:51-0500 Body weight 94.4 kg Vonda Cage PA Work Phone: [facility] 04-12-2024 09:51-0500 Diastolic blood pressure 72 mm[Hg] Vonda Cage PA Work Phone: [facility] 04-12-2024 09:51-0500 Systolic blood pressure 112 mm[Hg] Vonda Cage PA Work Phone: [facility] 03-02-2024 09:29-0400 Body height 160 cm Rosario Escamilla REEL SLITTER Work Phone: [facility] 03-02-2024 09:29-0400 Body mass index (BMI) [Ratio] 35.92 kg/m2 Rosario Francine REEL SLITTER Work Phone: [facility] 03-02-2024 09:29-0400 Body temperature 98.49 [degF] Rosario Francine REEL SLITTER Work Phone: [facility] 03-02-2024 09:29-0400 Body weight 91.99 kg Rosario Francine REEL SLITTER Work Phone: [facility] 03-02-2024 09:29-0400 Diastolic blood pressure 80 mm[Hg] Rosario Francine REEL SLITTER Work Phone: [facility] 03-02-2024 09:29-0400 Heart rate 82 /min Rosario Francine REEL SLITTER Work Phone: [facility] 03-02-2024 09:29-0400 Respiratory rate 18 /min Rosario Aichholz REEL SLITTER Work Phone: [facility] 03-02-2024 09:29-0400 SaO2% (BldA) [Mass fraction] 98 % Rosario Aichholz REEL SLITTER Work Phone: [facility] 03-02-2024 09:29-0400 Systolic blood pressure 110 mm[Hg] Rosario Aichholz REEL SLITTER Work Phone: [facility] 02-18-2024 13:23-0400 Body height 160 cm Rosario Aichholz REEL SLITTER Work Phone: [facility] 02-18-2024 13:23-0400 Body mass index (BMI) [Ratio] 35.71 kg/m2 Rosario Aichholz REEL SLITTER Work Phone: [facility] 02-18-2024 13:23-0400 Body temperature 98.49 [degF] Rosario Aichholz REEL SLITTER Work Phone: [facility] 02-18-2024 13:23-0400 Body weight 91.44 kg Rosario Aichholz REEL SLITTER Work Phone: [facility] 02-18-2024 13:23-0400 Diastolic blood pressure 76 mm[Hg] Rosario Aichholz REEL SLITTER Work Phone: [facility] 02-18-2024 13:23-0400 Heart rate 84 /min Rosario Aichholz REEL SLITTER Work Phone: [facility] 02-18-2024 13:23-0400 Respiratory rate 18 /min Rosario Aichholz REEL SLITTER Work Phone: [facility] 02-18-2024 13:23-0400 SaO2% (BldA) [Mass fraction] 98 % Rosario Aichholz REEL SLITTER Work Phone: [facility] 02-18-2024 13:23-0400 Systolic blood pressure 110 mm[Hg] Rosario Aichholz REEL SLITTER Work Phone: [facility] 02-07-2024 18:36-0400 Body temperature 97.7 [degF] [facility] 02-07-2024 18:36-0400 Diastolic blood pressure 84 mm[Hg] [facility] 02-07-2024 18:36-0400 Heart rate 67 /min [facility] [employer] 02-07-2024 18:36-0400 Respiratory rate 15 /min [facility] 02-07-2024 18:36-0400 SaO2% (BldA) [Mass fraction] 98 % [facility] 02-07-2024 18:36-0400 Systolic blood pressure 122 mm[Hg] [facility] 09-10-2023 17:43-0400 Body height 157.5 cm Tiesha Spencer DO Work Phone: [facility] 09-10-2023 17:43-0400 Body mass index (BMI) [Ratio] 38.78 kg/m2 Tiesha Spencer DO Work Phone: [facility] [employer] 09-10-2023 17:43-0400 Body temperature 98.2 [degF] Tiesha Spencer DO Work Phone: [facility] 09-10-2023 17:43-0400 Body weight 96.16 kg Tiesha Spencer DO Work Phone: [facility] [employer] 09-10-2023 17:43-0400 Diastolic blood pressure 83 mm[Hg] Tiesha Spencer DO Work Phone[facility] [employer] 09-10-2023 17:43-0400 Heart rate 87 /min Tiesha Spencer DO Work Phone: [facility] [employer] 09-10-2023 17:43-0400 Respiratory rate 20 /min Tiesha Spencer DO Work Phone: [facility] [employer] 09-10-2023 17:43-0400 SaO2% (BldA) [Mass fraction] 100 % Tiesha Spencer DO Work Phone: [facility] [employer] 09-10-2023 17:43-0400 Systolic blood pressure 137 mm[Hg] Tiesha Spencer DO Work Phone: [facility] [employer] 07-08-2023 14:32-0500 Body mass index (BMI) [Ratio] 36.39 kg/m2 Montanarayo Kerno DO Work Phone: [facility] 07-08-2023 14:32-0500 Body weight 96.16 kg Montana Kerno DO Work Phone: [facility] 07-08-2023 14:32-0500 Diastolic blood pressure 74 mm[Hg] Montana Kerno DO Work Phone: [facility] 07-08-2023 14:32-0500 Systolic blood pressure 118 mm[Hg] Montana Kerno DO Work Phone: [facility] 10-23-2022 10:15-0400 Body temperature 99.5 [degF] Tiesha Spencer DO Work Phone: [facility] [employer] 10-23-2022 10:15-0400 Diastolic blood pressure 60 mm[Hg] Tiesha Spencer DO Work Phone: [facility] [employer] 10-23-2022 10:15-0400 Heart rate 94 /min Tiesha Spencer DO Work Phone: [facility] [employer] 10-23-2022 10:15-0400 Systolic blood pressure 114 mm[Hg] Tiesha Spencer DO Work Phone: [facility] [employer] 10-23-2022 08:48-0400 SaO2% (BldA) [Mass fraction] 98 % Tiesha Spencer DO Work Phone: [facility] [employer] 10-23-2022 08:27-0400 Body mass index (BMI) [Ratio] 32.61 kg/m2 Tiesha Spencer DO Work Phone: [facility] [employer] 10-23-2022 08:27-0400 Body weight 86.18 kg Tiesha Spencer DO Work Phone: [facility] [employer] 10-23-2022 08:27-0400 Respiratory rate 16 /min Tiesha Spencer DO Work Phone: [facility] [employer] 10-22-2022 09:47-0400 Diastolic blood pressure 70 mm[Hg] Nancy West MD Work Phone: [facility] [employer] 10-22-2022 09:47-0400 Systolic blood pressure 105 mm[Hg] Nancy West MD Work Phone: [facility] [employer] 10-22-2022 09:42-0400 Body height 162.6 cm Nancy West MD Work Phone: [facility] [employer] 10-22-2022 09:42-0400 Body mass index (BMI) [Ratio] 32.61 kg/m2 Nancy West MD Work Phone: [facility] [employer] 10-22-2022 09:42-0400 Body temperature 100.09 [degF] Nancy West MD Work Phone: [facility] [employer] 10-22-2022 09:42-0400 Body weight 86.18 kg Nancy West MD Work Phone: [facility] [employer] 10-22-2022 09:42-0400 Heart rate 97 /min Nancy West MD Work Phone: [facility] [employer] 10-22-2022 09:42-0400 Respiratory rate 18 /min Nancy West MD Work Phone: [facility] [employer] 10-22-2022 09:42-0400 SaO2% (BldA) [Mass fraction] 98 % Nancy West MD Work Phone: [facility] [employer] 12-22-2021 13:10-0400 Body height 162.56 cm Lissette Shin Other [employer] Other 12-22-2021 13:10-0400 Body temperature 101.2 [degF] Lissette Shin Other [employer] Other 12-22-2021 13:10-0400 Respiratory rate 18 /min Lissette Shin Other [employer] Other 12-22-2021 13:10-0400 SaO2% (BldA) [Mass fraction] 98 % Lissette Shin Other [employer] Other 06-04-2021 18:00-0500 Body height 162.56 cm Lissette Ginty Other [employer] Other 06-04-2021 18:00-0500 Body mass index (BMI) [Ratio] 30.89 kg/m2 Lissette Ginty Other [employer] Other 06-04-2021 18:00-0500 Body temperature 97.3 [degF] Lissette Ginty Other [employer] Other 06-04-2021 18:00-0500 Body weight 81.65 kg Lissette Ginty Other [employer] Other 06-04-2021 18:00-0500 Respiratory rate 18 /min Lissette Ginty Other [employer] Other 06-04-2021 18:00-0500 SaO2% (BldA) [Mass fraction] 98 % Lissette Ginty Other [employer] Other Encounters Encounter Date Encounter Type Care Provider Facility Start: 05-31-2024 End: 05-31-2024 Emergency department patient visit Rosalie Foster MD Work Phone: [facility] Comment on above: Acute upper respirat ory infection (Primary Dx) Start: 05-31-2024 End: 05-31-2024 Emergency department patient visit NO PCP NO PCP [facility] Start: 05-23-2024 End: 05-23-2024 Bamboo flowsheet Jefry New Lorelei-Nossek SUPERVISOR SCREEN MAKING-SMOG TECHNICIAN Work Phone: [facility] Start: 05-23-2024 End: 05-23-2024 Bamboo flowsheet Jefry New Lorelei-Nossek SUPERVISOR SCREEN MAKING-SMOG TECHNICIAN Work Phone: [facility] Start: 05-23-2024 End: 05-23-2024 ambulatory JEFRY Virgen LORELEI-NOSSEK Not Available Start: 05-23-2024 End: 05-23-2024 Office outpatient visit 25 minutes Jefry Virgen Lorelei-Nossek SUPERVISOR SCREEN MAKING-SMOG TECHNICIAN Work Phone: [facility] Comment on above: Hx of high risk medi cation treatment; Bipolar 1 disorder ([facility]) Start: 05-02-2024 End: 05-02-2024 Bamboo flowsheet Jefry Virgen Lorelei-Nossek SUPERVISOR SCREEN MAKING-SMOG TECHNICIAN Work Phone: [facility] Start: 05-02-2024 End: 05-02-2024 Bamboo flowsheet Jefry Virgen Lorelei-Nossek SUPERVISOR SCREEN MAKING-SMOG TECHNICIAN Work Phone: [facility] Start: 05-02-2024 End: 05-02-2024 Office outpatient new 60 minutes Jefry Virgen Lorelei-Nossek SUPERVISOR SCREEN MAKING-SMOG TECHNICIAN Work Phone: [facility] Comment on above: KELI (generalized anx iety disorder) ([facility]) Start: 05-02-2024 End: 05-02-2024 ambulatory JEFRY Virgen LORELEI-NOSSEK Not Available Start: 04-28-2024 End: 04-28-2024 Office outpatient visit 10 minutes Rosario Escamilla REEL SLITTER Work Phone: [facility] Comment on above: Acute non-recurrent pansinusitis (Primary Dx); Tobacco dependence Start: 04-28-2024 End: 04-28-2024 ambulatory ROSARIO AICHHOLZ Not Available Start: 04-27-2024 End: 04-27-2024 Refill Rosario Francine REEL SLITTER Work Phone: [facility] Comment on above: KELI (generalized anx iety disorder) (CMS/HCC); Fibromyalgia Start: 04-22-2024 End: 04-22-2024 Emergency department patient visit [facility] Comment on above: Lower respiratory in fection (Primary Dx); Acute non-recurrent pansinusitis Start: 04-13-2024 End: 04-13-2024 Bamboo flowsheet Rosario Escamilla REEL SLITTER Work Phone: [facility] Start: 04-13-2024 End: 04-13-2024 Bamboo flowsheet Rosario Escamilla REEL SLITTER Work Phone: [facility] Start: 04-13-2024 End: 04-13-2024 Office outpatient visit 25 minutes Rosario Escamilla REEL SLITTER Work Phone: [facility] Comment on above: KELI (generalized anx iety disorder) (CMS/HCC) (Primary Dx); Class 2 obesity due to excess calories without serious comorbidity with body mass index (BMI) of 35.0 to 35.9 in adult; Tobacco dependence; Abnormal weight gain Start: 04-13-2024 End: 04-13-2024 ambulatory ROSARIO AICHHOLZ Not Available Start: 04-12-2024 End: 04-12-2024 Bamboo flowsheet Vonda PINA Work Phone: [facility] Start: 04-12-2024 End: 04-13-2024 Bamboo flowsheet Vonda PINA Work Phone: [facility] Start: 04-12-2024 End: 04-12-2024 Clinisync Result Encounter Vonda PINA Work Phone: [facility] Unsolicited Start: 04-12-2024 End: 04-13-2024 External Result Encounter Vonda PINA Work Phone: [facility] Unsolicited Start: 04-12-2024 End: 04-12-2024 ambulatory VONDA CAGE Not Available Start: 04-12-2024 End: 04-12-2024 Office outpatient visit 15 minutes Vonda PINA Work Phone: [facility] Comment on above: Vaginal discharge; Pelvic pain in female Start: 03-02-2024 End: 03-02-2024 Bamboo flowsheet Rosario Aichholz REEL SLITTER Work Phone: [facility] Start: 03-02-2024 End: 03-02-2024 Bamboo flowsheet Rosario Aichholz REEL SLITTER Work Phone: [facility] Start: 03-02-2024 End: 03-02-2024 Refill Rosario Aichholz REEL SLITTER Work Phone: [facility] Comment on above: Fibromyalgia (Primar y Dx) Start: 03-02-2024 End: 03-02-2024 Office outpatient visit 15 minutes Rosario Aichholz REEL SLITTER Work Phone: [facility] Comment on above: Fibromyalgia (Primar y Dx); KELI (generalized anxiety disorder) ([facility]); Class 2 obesity due to excess calories without serious comorbidity in adult, unspecified BMI Start: 02-18-2024 End: 02-18-2024 Bamboo flowsheet Rosario Aichholz REEL SLITTER Work Phone: [facility] Start: 02-18-2024 End: 02-18-2024 Bamboo flowsheet Rosario Aichholz REEL SLITTER Work Phone: [facility] Start: 02-18-2024 End: 02-18-2024 ambulatory ROSARIO AICHHOLZ Not Available Start: 02-18-2024 End: 02-18-2024 Office outpatient visit 15 minutes Rosario Aichholz REEL SLITTER Work Phone: [facility] Comment on above: Subacute maxillary s inusitis (Primary Dx); Class 2 obesity due to excess calories without serious comorbidity in adult, unspecified BMI; COVID; Non-recurrent acute suppurative otitis media of right ear without spontaneous rupture of tympanic membrane Start: 02-11-2024 End: 02-11-2024 Refill Rosario Aichholz REEL SLITTER [facility] Comment on above: Dizziness and giddin ess (Primary Dx) Start: 02-08-2024 End: 02-08-2024 Emergency department patient visit [facility] Start: 02-07-2024 End: 02-07-2024 Emergency department patient visit [facility] ED Start: 02-05-2024 End: 02-05-2024 Refill Rosario Aichholz REEL SLITTER Work Phone: [facility] Comment on above: Abnormal weight gain ; Class 2 obesity due to excess calories without serious comorbidity in adult, unspecified BMI Start: 02-04-2024 End: 02-04-2024 Emergency department patient visit [facility] Start: 01-07-2024 End: 01-07-2024 ambulatory ROSARIO AICHHOLZ Not Available Start: 12-09-2023 End: 12-09-2023 ambulatory ROSARIO AICHHOLZ Not Available Start: 10-29-2023 End: 10-29-2023 ambulatory ROSARIO AICHHOLZ Not Available Start: 10-26-2023 End: 10-26-2023 ambulatory [place] RIGOBERTO Not Available Start: 10-20-2023 End: 10-20-2023 ambulatory MILAGROS LEYVA Not Available Start: 09-28-2023 End: 09-28-2023 ambulatory [place] RIGOBERTO Not Available Start: 09-23-2023 End: 09-23-2023 ambulatory Rosario J Aichholz Facility:[facility] Start: 09-23-2023 End: 09-23-2023 ambulatory Rosario Aichholz Work Phone: [facility] Work Phone: Start: 09-23-2023 End: 09-23-2023 Departed Referred Rosario Aichholz Work Phone: [facility] Start: 09-21-2023 End: 09-21-2023 ambulatory ROSARIO ESCAMILLA Not Available Start: 09-10-2023 End: 09-10-2023 Emergency department patient visit Tiesha Spencer DO Work Phone: [facility] Comment on above: Right flank pain (Pr imary Dx) Start: 08-19-2023 End: 08-19-2023 ambulatory [place] RIGOBERTO Not Available Start: 08-03-2023 End: 08-03-2023 ambulatory VONDA FAUZIA Not Available Start: 07-30-2023 End: 07-30-2023 ambulatory VONDA CAGE Not Available Start: 07-08-2023 End: 07-08-2023 Patient encounter procedure [place] Rigoberto DO Work Phone: [facility] Work Phone: Start: 07-08-2023 End: 07-08-2023 Periodic preventive med est patient 18-39 yrs [place] Rigoberto DO Work Phone: [facility] Comment on above: Well woman exam with routine gynecological exam; Preop examination; Menorrhagia with irregular cycle; Pelvic pain in female Start: 07-08-2023 End: 07-08-2023 Preprocedural examination done [place] Rigoberto DO Work Phone: [facility] Start: 07-08-2023 End: 07-08-2023 ambulatory MON[place] RIGOBERTO Not Available Start: 06-23-2023 End: 06-23-2023 ambulatory [place] RIGOBERTO Not Available Start: 10-23-2022 End: 10-23-2022 Emergency department patient visit Tiesha Spencer DO Work Phone: [facility] Comment on above: Viral syndrome (Prim waqas Dx); Migraine without aura and with status migrainosus, not intractable; Sinus congestion Start: 10-22-2022 End: 10-22-2022 Emergency department patient visit Nancy West MD Work Phone: [facility] Comment on above: Nonintractable heada audie, unspecified chronicity pattern, unspecified headache type (Primary Dx); Acute recurrent sinusitis, unspecified location Start: 07-19-2022 End: 07-19-2022 ambulatory VIDEO EFFECTS EDITOR ROSARIO AICHHOLZ Facility:[facility] Start: 05-20-2022 End: 05-20-2022 ambulatory VIDEO EFFECTS EDITOR ROSARIO AICHHOLZ Facility:[facility] Start: 05-01-2022 End: 05-01-2022 ambulatory VIDEO EFFECTS EDITOR ROSARIO AICHHOLZ Facility:[facility] Start: 04-23-2022 End: 04-24-2022 ambulatory VIDEO EFFECTS EDITOR ROSARIO AICHHOLZ Facility:[facility] Start: 02-08-2022 End: 02-08-2022 ambulatory VIDEO EFFECTS EDITOR ROSARIO AICHHOLZ Facility:[facility] Start: 12-31-2021 End: 12-31-2021 ambulatory VIDEO EFFECTS EDITOR ROSARIO AICHHOLZ Facility:[facility] Start: 12-30-2021 End: 12-31-2021 ambulatory VIDEO EFFECTS EDITOR ROSARIO AICHHOLZ Facility:[facility] Start: 12-24-2021 End: 12-24-2021 ambulatory VIDEO EFFECTS EDITOR ROASRIO AICHHOLZ Facility:[facility] Start: 12-23-2021 End: 12-23-2021 ambulatory VIDEO EFFECTS EDITOR ROSARIO AICHHOLZ Facility:[facility] Start: 12-22-2021 End: 12-22-2021 ambulatory Lissette Kip Other [employer] Other Start: 12-22-2021 Office outpatient vi sit 25 minutes Lissette Kip [facility] [place] Start: 06-04-2021 End: 06-04-2021 ambulatory Lissette Jesus Other [employer] Other Start: 06-04-2021 Office outpatient vi sit 15 minutes Lissette Gintrayo [facility] [place] Procedures Date Procedure Procedure Detail Performing Clinician Start: 05-31-2024 COVID-19, RAPID Rosalie Hiro Foster MD Work Phone: Start: 05-31-2024 Iaadiadoo influenza Juan J is Hiro Foster MD Work Phone: Start: 04-22-2024 Radiologic exam ches t 2 views M Dale Colón SUPERVISOR SCREEN MAKING - VIDEO EFFECTS EDITOR Work Phone: Start: 04-12-2024 URINARY TRACT INFECT ION (HTRX) Vonda PINA Work Phone: Start: 04-12-2024 ALL CBC WITH AUTO DIFF Vonda PINA Work Phone: Start: 04-12-2024 Urnls dip stick/tabl et rgnt non-auto w/o micrscp [place] Rigoberto DO Work Phone: Start: 09-10-2023 End: 09-10-2023 Comprehensive metabolic panel Tiesha J Spencer DO Work Phone: Start: 09-10-2023 Urine test visual color cmprsn meths Tiesha J Spencer DO Work Phone: Start: 09-10-2023 Urnls dip stick/tabl et reagent auto microscopy Tiesha J Spencer DO Work Phone: Start: 07-08-2023 Microscopic observat ion [Identifier] in Cervix by Cyto stain Rosario Escamilla REEL SLITTER Work Phone: Start: 10-23-2022 Radiologic exam ches t single view Tiesha J Spencer DO Work Phone: Start: 10-23-2022 Ct head/brain w/o co ntrast material Tiesha J Spencer DO Work Phone: Start: 10-23-2022 COVID-19, RAPID Tiesha J Spencer DO Work Phone: Start: 10-23-2022 Iaadiadoo influenza Noah eria J Spencer DO Work Phone: Start: 10-23-2022 Basic metabolic pane l calcium total Tiesha J Spencer DO Work Phone: Start: 10-23-2022 C-reactive protein Jave jimbo J Spencer DO Work Phone: Start: 10-23-2022 IMMATURE PLATELET FRACTION Tiesha J Spencer DO Work Phone: Start: 10-22-2022 COVID-19, RAPID Nancy West MD Work Phone: Plan of Treatment Date Care Activity Detail Author Start: 07-08-2028 Screening for malign ant neoplasm of cervix [facility] Start: 11-21-2024 End: 05-23-2025 Lipid 1996 panel - Serum or Plasma Lipid panel Lab Routine Hx of high risk medication treatment Expected: 11/21/2024 (Approximate), Expires: 05/23/2025 [facility] Comment on above: Expected: 11/21/2024 (Approximate), Expires: 05/23/2025 Start: 06-15-2024 End: 06-15-2024 Patient encounter procedure 06/15/2024 1:30 PM EST Office Visit [facility] [address] [facility] [address] [place] [address] Jefry Pedraza, SUPERVISOR SCREEN MAKING-SMOG TECHNICIAN [address] [facility] [address] [place] [address] [facility] Start: 05-23-2024 End: 05-23-2025 CBC W Auto Differential panel - Blood CBC and differential Lab Routine Hx of high risk medication treatment Expected: 05/23/2024 (Approximate), Expires: 05/23/2025 [facility] Comment on above: Expected: 05/23/2024 (Approximate), Expires: 05/23/2025 Start: 05-23-2024 End: 05-23-2025 Comprehensive metabolic 2000 panel - Serum or Plasma Comprehensive metabolic panel Lab Routine Hx of high risk medication treatment Expected: 05/23/2024 (Approximate), Expires: 05/23/2025 [facility] Comment on above: Expected: 05/23/2024 (Approximate), Expires: 05/23/2025 Start: 05-23-2024 End: 05-23-2025 Thyroid panel with tsh Thyroid panel with tsh Lab Routine Hx of high risk medication treatment Expected: 05/23/2024 (Approximate), Expires: 05/23/2025 [facility] Work Phone: Comment on above: Expected: 05/23/2024 (Approximate), Expires: 05/23/2025 Start: 05-23-2024 End: 05-23-2024 Patient encounter procedure 05/23/2024 9:30 AM EST Office Visit [facility] [address] [facility] [address] [place] [address] Jefry Pedraza, [facility]-SMOG TECHNICIAN [address] [facility] [address] [place] [address] [facility] Start: 05-12-2024 End: 05-12-2024 Patient encounter procedure [facility] Start: 05-02-2024 End: 05-02-2024 Patient encounter procedure 05/02/2024 12:30 PM EST Office Visit [facility] [address] [facility] [address] [place] [address] Kayla Narvaez NP [address] [facility] [address] [place] [address] [facility] Start: 05-02-2024 End: 05-02-2024 Patient encounter procedure 05/02/2024 9:30 AM EST Office Visit [facility] [address] [facility] [address] [place] [address] Jefry Pedraza, [facility] [address] [facility] [address] [place] [address] KELI (generalized anxiety disorder) (CMS/HCC) [facility] Comment on above: KELI (generalized anx iety disorder) (CMS/HCC) Start: 04-19-2024 End: 04-19-2024 Professional / ancillary services management 04/19/2024 11:00 AM EST Ancillary Procedure [facility] [address] [place] [id number] [facility] Start: 04-13-2024 End: 04-13-2024 Patient encounter procedure [facility] Comment on above: Class 2 obesity due to excess calories without serious comorbidity with body mass index (BMI) of 35.0 to 35.9 in adult (Primary Dx); Tobacco dependence Start: 04-12-2024 End: 04-12-2025 US for US PELVIS-TRANSVAG IF INDICATED Imaging Routine Pelvic pain in female Expected: 04/12/2024 (Approximate), Expires: 04/12/2025 [facility] Comment on above: Expected: 04/12/2024 (Approximate), Expires: 04/12/2025 Start: 03-30-2024 End: 03-30-2024 Patient encounter procedure 03/30/2024 10:00 AM EST Office Visit [facility] [address] [place] [address] Rosario Escamilla, SAROJ [address] [place] [id number] [facility] Start: 03-08-2024 End: 03-08-2024 Patient encounter procedure 03/08/2024 9:00 AM EDT Office Visit [facility] [address] [place] [address] Rosario Escamilla, SAROJ [address] [place] [phone] [facility] Start: 03-02-2024 End: 03-02-2024 Patient encounter procedure 03/02/2024 9:20 AM EDT Office Visit [facility] [address] [place] [address] Rosario Escamilla NP [address] [place] [phone] [facility] Start: 02-18-2024 End: 02-18-2024 Patient encounter procedure 02/18/2024 1:20 PM EDT Office Visit [facility] [address] [place] [address] Rosario Escamilla NP [address] [place] [address] [facility] Start: 01-24-2024 COVID-19 Vaccine ( season) COVID-19 Vaccine ( season) [facility] Start: 12-24-2023 Influenza vaccination B [facility] Start: 11-23-2023 End: 11-23-2023 Patient encounter procedure 11/23/2023 3:20 PM EDT Office Visit [facility] [address] [place] [id number] Rosario Escamilla, SAROJ [address] [place] [phone] [facility] Start: 11-22-2023 Influenza vaccination Influenza Vacc ine (#1) [facility] Comment on above: Postponed from 01/23 (Patient Refused) Start: 07-24-2023 Screening for malign ant neoplasm of cervix Cervical Cancer Screening [facility] Comment on above: Postponed from 11/02 (Other Patient Reasons) Start: 12-23-2022 Influenza vaccination Flu vacc ine (Season Ended) [facility] [facility] Start: 11-02-2021 Screening for malign ant neoplasm of cervix [facility] Start: 11-02-2012 Screening for malign ant neoplasm of cervix Pap smear [facility] Start: 11-02-2010 DTaP/Tdap/Td vaccine (1 - Tdap) DTaP/Tdap/Td vaccine (1 - Tdap) [facility] Start: 11-02-2009 Hepatitis C screening Hepatitis C sc reen [facility] Start: 11-02-2006 HIV screening HIV screen [facility] Start: 11-02-2004 Varicella vaccine (1 of 2 - 13+ 2-dose series) Varicella vaccine (1 of 2 - 13+ 2-dose series) [facility] Start: 03-04-2004 Hepatitis B vaccine (2 of 3 - 3-dose series) Hepatitis B vaccine (2 of 3 - 3-dose series) [facility] Start: 2003 Depression Screen Depression Screen [facility] Start: 11-02-2002 DTaP/Tdap/Td vaccine (5 - Tdap) DTaP/Tdap/Td vaccine (5 - Tdap) [facility] Start: 11-02-1997 Pneumococcal 0-64 ye ars Vaccine (1 - PCV) Pneumococcal 0-64 years Vaccine (1 - PCV) [facility] Start: 11-02-1992 Varicella vaccine (1 of 2 - 2-dose childhood series) Varicella vaccine (1 of 2 - 2-dose childhood series) [facility] Start: 05-04-1992 COVID-19 Vaccine (#1) COVID-19 Vacci ne (#1) [facility] Start: 1991 Hepatitis B vaccine (1 of 3 - 3-dose series) Hepatitis B vaccine (1 of 3 - 3-dose series) [facility] Bacteria identified in Urine by Culture Urine culture Microbiology Routine Pelvic pain in female Ordered: 04/12/2024 [facility] [employer] Comment on above: Ordered: 04/12/2024 CBC panel - Blood by Automated count CBC Lab Routine Pelvic pain in female Ordered: 04/12/2024 [facility] [employer] Work Phone: Comment on above: Ordered: 04/12/2024 Comprehensive metabo lic 2000 panel - Serum or Plasma Comprehensive metabolic panel Lab Routine Pelvic pain in female Ordered: 04/12/2024 [facility] [employer] Comment on above: Ordered: 04/12/2024 Cytology Cervical or vaginal smear or scraping study Pap Smear Pathology and Cytology Routine Well woman exam with routine gynecological exam Ordered: 07/08/2023 [facility] [employer] Work Phone: Comment on above: Ordered: 07/08/2023 Human papilloma viru s DNA [Presence] in Unspecified specimen by Probe with amplification HPV DNA probe, amplified Microbiology Routine Well woman exam with routine gynecological exam Ordered: 07/08/2023 [facility] [employer] Comment on above: Ordered: 07/08/2023 End: 10-23-2022 Respiratory Panel, Molecular, with COVID-19 (Restricted: peds pts or suitable admitted adults) [facility] Work Phone: Comment on above: One Time for 1 Occur rences starting 10/23/2022 until 10/23/2022 End: 09-10-2023 SPECIMEN REJECTION [facility] Comment on above: Once for 1 Occurrenc es starting 09/10/2023 until 09/10/2023 Immunizations Immunization Date Immunization Notes Care Provider Bridgett mesa 02-05-2004 hepatitis B vaccine, pediatric or pediatric/adolescent dosage Rosario Aichholz [employer] Work Phone: [facility] 09-19-1996 diphtheria, tetanus toxoids and acellular pertussis vaccine, unspecified formulation Rosario Aichholz [employer] Work Phone: [facility] 09-19-1996 measles, mumps and rubella virus vaccine Rosario Aichholz [employer] Work Phone: [facility] 09-19-1996 trivalent poliovirus vaccine, live, oral Rosario Aichholz [employer] Work Phone: [facility] 02-12-1994 diphtheria, tetanus toxoids and pertussis vaccine Rosario Aichholz [employer] Work Phone: [facility] 02-12-1994 trivalent poliovirus vaccine, live, oral Rosario Aichholz [employer] Work Phone: [facility] 09-30-1993 diphtheria, tetanus toxoids and pertussis vaccine Rosario Aichholz [employer] Work Phone: [facility] 09-30-1993 haemophilus influenz ae type b vaccine, conjugate unspecified formulation Rosario Aichholz [employer] Work Phone: [facility] 09-30-1993 measles, mumps and rubella virus vaccine Rosario Aichholz [employer] Work Phone: [facility] 09-30-1993 trivalent poliovirus vaccine, live, oral Rosario Aichholz [employer] Work Phone: [facility] 04-16-1992 diphtheria, tetanus toxoids and pertussis vaccine Rosario Aichholz [employer] Work Phone: [facility] 04-16-1992 haemophilus influenz ae type b vaccine, conjugate unspecified formulation Rosario Escamilla [employer] Work Phone: [facility] 04-16-1992 trivalent poliovirus vaccine, live, oral Rosario Escamilla [employer] Work Phone: [facility] Healthcare Payers Date Payer Category Payer Self-pay 2022 Unknown [facility] MEDICAID [id number] 2022-Present [phone] [address] [place] [address]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 (Emirati)documented in this encounter [facility] 04-13-2024 History of Present illness Narrative Associated Problem(s): Abnormal weight gain Pt meets qualifications of [facility] 4731-03-28 for weight loss. BMI>30 or >27 with comorbid conditions. Notify office with any symptoms of chest pain, dyspnea, heart palpitations, or any anxiety symptoms. F/U in 4 weeks to document weight loss. Increase physical activity as tolerated, and lower caloric intake to 1600 calories daily if no contraindications This would be month #5, however she did skip a month of meds OARRS reviewed Associated Problem(s): Class 2 obesity due to excess calories without serious comorbidity in adult Discussed with patient their BMI (actual, verses recommended). We have also discussed lifestyle modifications: attempts to perform physical activity as chronic conditions allow, also to monitor dietary intake: increasing protein/fruits/veggies and lowering carb intake (unless contraindicated). Limit sodas, juices, and sugary drinks. Associated Problem(s): KELI (generalized anxiety disorder) ([facility]) We discussed that she may have depression/anxiety, ?? Mood disorder, or ?? ADHD There could be some overlap in her symptoms as well. I do have some question that if the addition of the adipex helped the focus that is there underlying ADHD. We currently have her on duloxetine for KELI, as well as fibro After discussion we will send her to see Psych for an evaluation for proper dx and then treatment plan Pt had gotten a new job, did 2 weeks of training on midnights now on currently from 1pm-9m Pt is fatigue. Pt is needing help focusing. Pt is wanting to talk about pitting on her legs and feels that she is drinking more water She had blood work and appt done yesterday with vonda cage She does not have a UTI Images from the original note were not included. Lina Alcantar is a 33 y.o. female presents with chief complaint of No chief complaint on file. HPI: Here for a recheck... Would like to continue on her adipex, she felt she was doing well on the medication, losing weight, but more over she felt that overall her mood and focus was improved as well. Sleep patterns were better as well. 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 She has never been dx with ADHD, however she does not necessarily exhibit sxs of bipolar disorder. She can have anxiety from time to time, no SI/HI/Hallucinations, and can feel down from time to time. SUBJECTIVE: MEDICATIONS: Current Outpatient Medications Medication Instructions cyclobenzaprine (FLEXERIL) 10 mg, Oral, Nightly PRN, Discontinue the tizanidine script d/t lack of supply at pharmacy DULoxetine (CYMBALTA) 60 mg, Oral, Every morning gabapentin (NEURONTIN) 300 mg, Oral, 2 times daily LORazepam (ATIVAN) 0.5 mg, Oral, Daily PRN phentermine (ADIPEX-P) 37.5 mg, Oral, Daily before breakfast ALLERGIES: No Known Allergies REVIEW OF SYMPTOMS: Review of Systems Constitutional: Negative for appetite change, chills and fever. HENT: Negative for congestion, ear pain and sore throat. Eyes: Negative for pain, discharge, redness and visual disturbance. Respiratory: Negative for cough, shortness of breath and wheezing. Cardiovascular: Negative for chest pain, palpitations and leg swelling. Gastrointestinal: Negative for abdominal pain, blood in stool, constipation, diarrhea, nausea and vomiting. Genitourinary: Negative for difficulty urinating, dysuria and frequency. Musculoskeletal: Positive for arthralgias and myalgias. Negative for back pain and joint swelling. Skin: Negative for rash and wound. Neurological: Negative for dizziness, tremors, seizures, syncope and headaches. Psychiatric/Behavioral: Positive for decreased concentration. Negative for behavioral problems, self-injury and suicidal ideas. The patient is nervous/anxious. Depression Hematological: Does not bruise/bleed easily. Endocrine: Negative for polydipsia, polyphagia and polyuria. Allergic/Immunologic: Negative for environmental allergies and food allergies. 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 OBJECTIVE: Visit Vitals BP 110/78 (BP Location: Left arm, Patient Position: Sitting, BP Cuff Size: Adult long) Pulse 86 Temp 97.8 F (Temporal) Resp 19 Ht 5' 3 Wt 211 lb 3.2 oz SpO2 100% BMI 37.41 kg/m OB Status Having periods Smoking Status Every Day BSA 2.06 m Physical Exam Vitals and nursing note reviewed. Constitutional: General: She is not in acute distress. Appearance: Normal appearance. HENT: Head: Normocephalic and atraumatic. Right Ear: External ear normal. Left Ear: External ear normal. Nose: Nose normal. Mouth/Throat: Mouth: Mucous membranes are moist. Eyes: Extraocular Movements: Extraocular movements intact. Conjunctiva/sclera: Conjunctivae normal. Cardiovascular: Rate and Rhythm: Normal rate and regular rhythm. Pulses: Normal pulses. Heart sounds: Normal heart sounds. Pulmonary: Effort: Pulmonary effort is normal. Breath sounds: Normal breath sounds. Abdominal: General: Bowel sounds are normal. There is no distension. Palpations: Abdomen is soft. There is no mass. Tenderness: There is no abdominal tenderness. Musculoskeletal: General: Normal range of motion. Cervical back: Normal range of motion and neck supple. Right lower leg: No edema. Left lower leg: No edema. Skin: General: Skin is warm and dry. Capillary Refill: Capillary refill takes 2 to 3 seconds. Findings: No rash. Neurological: General: No focal deficit present. Mental Status: She is alert and oriented to person, place, and time. Psychiatric: Mood and Affect: Mood normal. Behavior: Behavior normal. Thought Content: Thought content normal. Judgment: Judgment normal. ASSESSMENT AND PLAN: Follow up in about 1 month (around 05/13/2024) for Recheck. Problem List Items Addressed This Visit KELI (generalized anxiety disorder) (CMS/HCC) - Primary We discussed that she may have depression/anxiety, ?? Mood disorder, or ?? ADHD There could be some overlap in her symptoms as well. I do have some question that if the addition of the adipex helped the focus that is there underlying ADHD. We currently have her on duloxetine for KELI, as well as fibro After discussion we will send her to see Psych for an evaluation for proper dx and then treatment plan Relevant Orders Ambulatory referral to Behavioral Health Class 2 obesity due to excess calories without serious comorbidity in adult Discussed with patient their BMI (actual, verses recommended). We have also discussed lifestyle modifications: attempts to perform physical activity as chronic conditions allow, also to monitor dietary intake: increasing protein/fruits/veggies and lowering carb intake (unless contraindicated). Limit sodas, juices, and sugary drinks. Relevant Medications phentermine (Adipex-P) 37.5 MG tablet Tobacco dependence The patient has been advised of the risks of continued smoking: stroke, MS, all forms of cancer, lung disease, and . Options for quitting smoking include: cold turkey, hypnosis, acupuncture, nicotine replacement meds (gum, lozenges, and patches), Buproprion, and Varenicline. At this time pt is encouraged to evaluate their goals for wanting to quit smoking, and reach out to provider when ready to start this process Abnormal weight gain Pt meets qualifications of [facility] 4731-03-28 for weight loss. BMI>30 or >27 with comorbid conditions. Notify office with any symptoms of chest pain, dyspnea, heart palpitations, or any anxiety symptoms. F/U in 4 weeks to document weight loss. Increase physical activity as tolerated, and lower caloric intake to 1600 calories daily if no contraindications This would be month #5, however she did skip a month of meds OARRS reviewed Associated Problem(s): Tobacco dependence The patient has been advised of the risks of continued smoking: stroke, MS, all forms of cancer, lung disease, and . Options for quitting smoking include: cold turkey, hypnosis, acupuncture, nicotine replacement meds (gum, lozenges, and patches), Buproprion, and Varenicline. At this time pt is encouraged to evaluate their goals for wanting to quit smoking, and reach out to provider when ready to start this process documented in this encounter [facility] 04-13-2024 Instructions Rosario Escamilla NP - 04/13/2024 11:00 AM EST Refer to psych for evaluation for proper diagnosis and medication management documented in this encounter [facility] 04-12-2024 History of Present illness Narrative Reason for Appointment: Patient ID: Lina Alcantar is a 33 y.o. female who presents for Vaginal Discharge Patient presents today for Acute Visit. MEDICATIONS Current Outpatient Medications Medication Instructions cyclobenzaprine (FLEXERIL) 10 mg, Oral, Nightly PRN, Discontinue the tizanidine script d/t lack of supply at pharmacy DULoxetine (CYMBALTA) 60 mg, Oral, Every morning gabapentin (NEURONTIN) 300 mg, Oral, 2 times daily LORazepam (ATIVAN) 0.5 mg, Oral, Daily PRN ALLERGIES No Known Allergies PROBLEMS Active Ambulatory Problems Diagnosis Date Noted Lupus 05/02/2019 KELI (generalized anxiety disorder) ([facility]) 05/20/2023 Ear itching 05/21/2023 Fibromyalgia 05/21/2023 Class 2 obesity due to excess calories without serious comorbidity in adult 05/21/2023 Thrombocytopenia ([facility]) 09/21/2023 RLS (restless legs syndrome) 09/21/2023 Chronic fatigue 10/26/2023 Encounter for routine checking of intrauterine contraceptive device (IUD) 10/26/2023 Tobacco dependence 12/09/2023 Abnormal weight gain 12/09/2023 Dizziness and giddiness 02/11/2024 COVID 02/18/2024 Resolved Ambulatory Problems Diagnosis Date Noted UTI symptoms 09/21/2023 Subacute maxillary sinusitis 02/18/2024 Non-recurrent acute suppurative otitis media of right ear without spontaneous rupture of tympanic membrane 02/18/2024 Past Medical History: Diagnosis Date Fatigue History of drug use Lumbar back pain Mood disorder ([facility]) Neurocardiogenic syncope Obesity (BMI 30-39.9) Rash of foot Restless leg 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 Tobacco user HISTORY PAST MEDICAL HISTORY SOCIAL HISTORY Past Medical History: Diagnosis Date Class 2 obesity due to excess calories without serious comorbidity in adult 05/21/2023 Ear itching 05/21/2023 Fatigue Fibromyalgia Fibromyalgia 05/21/2023 History of drug use Lumbar back pain Mood disorder (CMS/HCC) Neurocardiogenic syncope Obesity (BMI 30-39.9) Rash of foot Restless leg 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 SURGICAL HISTORY Past Surgical History: Procedure Laterality Date LAPAROSCOPY DIAGNOSTIC / BIOPSY / ASPIRATION / LYSIS 07/24/2023 TUBAL LIGATION REVIEW OF SYSTEMS Review of Systems: Review of Systems Constitutional: Negative. HENT: Negative. Eyes: Negative. Respiratory: Negative. Cardiovascular: Negative. Gastrointestinal: Negative. Genitourinary: Negative. Musculoskeletal: Negative. Skin: Negative. Neurological: Negative. All other systems reviewed and are negative. Hematological: Negative. Endocrine: Negative. Allergic/Immunologic: Negative. OBJECTIVE Objective: Physical Exam Constitutional: Appearance: Normal appearance. She is normal weight. HENT: Head: Normocephalic. Cardiovascular: Rate and Rhythm: Normal rate. Pulses: Normal pulses. Pulmonary: Effort: Pulmonary effort is normal. Breath sounds: Normal breath sounds. Abdominal: Palpations: Abdomen is soft. Musculoskeletal: General: Normal range of motion. Neurological: General: No focal deficit present. Mental Status: She is alert and oriented to person, place, and time. Psychiatric: Mood and Affect: Mood normal. Behavior: Behavior normal. Thought Content: Thought content normal. Judgment: Judgment normal. Vitals and nursing note reviewed. Vitals: Estimated body mass index is 36.87 kg/m as calculated from the following: Height as of 10/9/24: 5' 3 . Weight as of this encounter: 208 lb 1.9 oz. BP: 112/72 No LMP recorded. ASSESSMENT & PLAN ICD-10-CM 1. Vaginal discharge N89.8 POCT urinalysis dipstick manually resulted 2. Pelvic pain in female R10.2 CBC Comprehensive metabolic panel US PELVIS-TRANSVAG IF INDICATED Urine culture Patient presents with picture of some vaginal tissue discharge she has had in toilet since having IUD placed. Patient states it has happened several times over past couple months. Vaginal exam offered but patient declined today. We will order US for IUD placement. Patient states she was diagnosed with covid in January and also fighting multiple utis. Urine will be sent for culture as well as lab work. Pt states she is having lower extremity swelling but none noted today on exam Pt will schedule follow up appointment and advised we may do vaginal exam at that time if symptoms persist Documented by YOVANI House on behalf of: YOVANI House documented in this encounter [facility] 03-02-2024 History of Present illness Narrative Associated Problem(s): KELI (generalized anxiety disorder) ([facility]) No med dose changes at this time Associated Problem(s): Fibromyalgia Suspect flare of fibro with recent COVID and lack of sleep d/t adipex Recommend back stretching, OTC NSAIDS, will provide muscle relaxer to take at night Fu in 4 weeks to see if better Lower Back pain and lower neck pain- comes and goes, pain will last for days at a time. Pt has stopped taking the atb yesterday-pt had itchiness, white watery discharge, and smell. Pt has been using otc but has only helped with the itchiness. Images from the original note were not included. Lina Alcantar is a 33 y.o. female presents with chief complaint of No chief complaint on file. HPI: Still feeling tired and sluggish since having COVID. She also lost her job as a result of being sick, was pointed and it was her last point. She is having increase in depression/anxiety since losing her job, no SI/HI/Hallucinations. She does not feel her duloxetine needs changed She has fibromyalgia, and since having covid has had increase in muscle aches/pains. And difficulty falling asleep (?adipex as well) SUBJECTIVE: MEDICATIONS: Current Outpatient Medications Medication Instructions DULoxetine (CYMBALTA) 60 mg, Oral, Every morning gabapentin (NEURONTIN) 300 mg, Oral, 2 times daily LORazepam (ATIVAN) 0.5 mg, Oral, Daily PRN tiZANidine (ZANAFLEX) 4 mg, Oral, Nightly PRN ALLERGIES: No Known Allergies REVIEW OF SYMPTOMS: Review of Systems Constitutional: Negative for appetite change, chills and fever. HENT: Positive for sinus pressure. Negative for congestion, ear pain and sore throat. Eyes: Negative for pain, discharge, redness and visual disturbance. Respiratory: Negative for cough, shortness of breath and wheezing. Cardiovascular: Negative for chest pain, palpitations and leg swelling. Gastrointestinal: Negative for abdominal pain, blood in stool, constipation, diarrhea, nausea and vomiting. Genitourinary: Negative for difficulty urinating, dysuria and frequency. Musculoskeletal: Positive for back pain and myalgias. Negative for arthralgias and joint swelling. Skin: Negative for rash and wound. Neurological: Negative for dizziness, tremors, seizures, syncope and headaches. Psychiatric/Behavioral: Negative for behavioral problems, self-injury and suicidal ideas. The patient is nervous/anxious. Depression Hematological: Does not bruise/bleed easily. Endocrine: Negative for polydipsia, polyphagia and polyuria. Allergic/Immunologic: Negative for environmental allergies and food allergies. 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 OBJECTIVE: Visit Vitals BP 110/80 (BP Location: Left arm, Patient Position: Sitting, BP Cuff Size: Adult long) Pulse 82 Temp 98.5 F (Temporal) Resp 18 Ht 5' 3 Wt 202 lb 12.8 oz SpO2 98% BMI 35.92 kg/m OB Status Having periods Smoking Status Every Day BSA 2.02 m Physical Exam Vitals and nursing note reviewed. Constitutional: General: She is not in acute distress. Appearance: Normal appearance. HENT: Head: Normocephalic and atraumatic. Right Ear: Tympanic membrane, ear canal and external ear normal. Left Ear: Tympanic membrane, ear canal and external ear normal. Nose: Nose normal. No congestion or rhinorrhea. Comments: Mild frontal sinus pressure Mouth/Throat: Mouth: Mucous membranes are moist. Pharynx: No oropharyngeal exudate or posterior oropharyngeal erythema. Eyes: Extraocular Movements: Extraocular movements intact. Conjunctiva/sclera: Conjunctivae normal. Cardiovascular: Rate and Rhythm: Normal rate and regular rhythm. Pulses: Normal pulses. Heart sounds: Normal heart sounds. Pulmonary: Effort: Pulmonary effort is normal. Breath sounds: Normal breath sounds. No wheezing or rales. Abdominal: General: Bowel sounds are normal. There is no distension. Palpations: Abdomen is soft. There is no mass. Tenderness: There is no abdominal tenderness. Musculoskeletal: Cervical back: Normal range of motion and neck supple. Right lower leg: No edema. Left lower leg: No edema. Comments: +tightness to bilat trap, full cervical ROM Lumbar ROM: near full, no point tenderness DTR's 2+ bilat patellar/achilles MMT 5/5 bilat LE -SLR X2, although minimal rise of left LE causes right lumbar pain Lymphadenopathy: Cervical: No cervical adenopathy. Skin: General: Skin is warm and dry. Capillary Refill: Capillary refill takes 2 to 3 seconds. Findings: No rash. Neurological: General: No focal deficit present. Mental Status: She is alert and oriented to person, place, and time. Gait: Gait normal. Deep Tendon Reflexes: Reflexes normal. Psychiatric: Mood and Affect: Mood normal. Behavior: Behavior normal. Thought Content: Thought content normal. Judgment: Judgment normal. ASSESSMENT AND PLAN: Follow up in about 4 weeks (around 03/30/2024) for Recheck. Problem List Items Addressed This Visit KELI (generalized anxiety disorder) (CMS/[facility]) No med dose changes at this time Fibromyalgia - Primary Suspect flare of fibro with recent COVID and lack of sleep d/t adipex Recommend back stretching, OTC NSAIDS, will provide muscle relaxer to take at night Fu in 4 weeks to see if better Relevant Medications tiZANidine (Zanaflex) 4 MG tablet Class 2 obesity due to excess calories without serious comorbidity in adult documented in this encounter [facility] 02-18-2024 History of Present illness Narrative Associated Problem(s): Subacute maxillary sinusitis Likely secondary to covid and also has right OM Will treat with atb Fluids, rest Associated Problem(s): COVID Still w post viral achiness and fatigue Recommend fluids, rest and motrin and tylenol prn No resp distress noted Images from the original note were not included. Lina Alcantar is a 33 y.o. female presents with chief complaint of No chief complaint on file. HPI: Here for recheck. Adipex as well as ER fu for COVID On 02/04/24. Still with achiness, sinus pressures, and tenderness. No fever, chill, no NVD now Mostly fatigue and muscle aches SUBJECTIVE: MEDICATIONS: Current Outpatient Medications Medication Instructions DULoxetine (CYMBALTA) 60 mg, Oral, Every morning gabapentin (NEURONTIN) 300 mg, Oral, 2 times daily LORazepam (ATIVAN) 0.5 mg, Oral, Daily PRN meclizine (ANTIVERT) 25 mg, Oral, 3 times daily PRN phentermine (ADIPEX-P) 37.5 mg, Oral, Daily before breakfast ALLERGIES: No Known Allergies REVIEW OF SYMPTOMS: Review of Systems Constitutional: Positive for fatigue. Negative for appetite change, chills and fever. HENT: Positive for ear pain, sinus pressure and sinus pain. Negative for congestion and sore throat. Eyes: Negative for pain, discharge, redness and visual disturbance. Respiratory: Positive for cough. Negative for shortness of breath and wheezing. Cardiovascular: Negative for chest pain, palpitations and leg swelling. Gastrointestinal: Negative for abdominal pain, blood in stool, constipation, diarrhea, nausea and vomiting. Genitourinary: Negative for difficulty urinating, dysuria and frequency. Musculoskeletal: Negative for arthralgias, back pain, joint swelling and myalgias. Skin: Negative for rash and wound. Neurological: Negative for dizziness, tremors, seizures, syncope and headaches. Psychiatric/Behavioral: Negative for behavioral problems, self-injury and suicidal ideas. The patient is not nervous/anxious. Hematological: Does not bruise/bleed easily. Endocrine: Negative for polydipsia, polyphagia and polyuria. Allergic/Immunologic: Negative for environmental allergies and food allergies. 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 OBJECTIVE: Visit Vitals BP 110/76 (BP Location: Left arm, Patient Position: Sitting, BP Cuff Size: Adult long) Pulse 84 Temp 98.5 F (Temporal) Resp 18 Ht 5' 3 Wt 201 lb 9.6 oz SpO2 98% BMI 35.71 kg/m OB Status Having periods Smoking Status Every Day BSA 2.02 m Physical Exam Vitals and nursing note reviewed. Constitutional: General: She is not in acute distress. Appearance: Normal appearance. HENT: Head: Normocephalic and atraumatic. Right Ear: Ear canal and external ear normal. Left Ear: Tympanic membrane, ear canal and external ear normal. Ears: Comments: Cloudy and erythematous Nose: Congestion present. No rhinorrhea. Comments: Frontal and maxillary sinus tenderness Mouth/Throat: Mouth: Mucous membranes are moist. Pharynx: Posterior oropharyngeal erythema present. No oropharyngeal exudate. Eyes: Extraocular Movements: Extraocular movements intact. Conjunctiva/sclera: Conjunctivae normal. Cardiovascular: Rate and Rhythm: Normal rate and regular rhythm. Pulses: Normal pulses. Heart sounds: Normal heart sounds. Pulmonary: Effort: Pulmonary effort is normal. Breath sounds: Normal breath sounds. No wheezing or rales. Abdominal: General: Bowel sounds are normal. There is no distension. Palpations: Abdomen is soft. There is no mass. Tenderness: There is no abdominal tenderness. Musculoskeletal: General: Normal range of motion. Cervical back: Normal range of motion and neck supple. Right lower leg: No edema. Left lower leg: No edema. Skin: General: Skin is warm and dry. Capillary Refill: Capillary refill takes 2 to 3 seconds. Findings: No rash. Neurological: General: No focal deficit present. Mental Status: She is alert and oriented to person, place, and time. Psychiatric: Mood and Affect: Mood normal. Behavior: Behavior normal. Thought Content: Thought content normal. Judgment: Judgment normal. ASSESSMENT AND PLAN: No follow-ups on file. Problem List Items Addressed This Visit Class 2 obesity due to excess calories without serious comorbidity in adult - Primary COVID Still w post viral achiness and fatigue Recommend fluids, rest and motrin and tylenol prn No resp distress noted Subacute maxillary sinusitis Likely secondary to covid and also has right OM Will treat with atb Fluids, rest Relevant Medications amoxicillin-clavulanate (Augmentin) 875-125 MG tablet Non-recurrent acute suppurative otitis media of right ear without spontaneous rupture of tympanic membrane Relevant Medications amoxicillin-clavulanate (Augmentin) 875-125 MG tablet documented in this encounter [facility] 09-10-2023 Hospital Discharge instructions Tiesha Spencer DO - 09/10/2023 7:13 PM EDT Tylenol as needed. Follow-up with your doctor in regards to your low platelet counts. Return if you have any worsening symptoms. Heating pad or ice pack may also be helpful. Avoid ibuprofen or Aleve. The following attachments cannot be sent through Care Everywhere.Flank Pain (Emirati)documented in this encounter [facility] 07-08-2023 History of Present illness Narrative Reason for Appointment: Patient ID: Lina Alcantar is a 32 y.o. female who presents for Well Women Visit and Pre-op Visit Patient presents today for a Pre Op appointment. Patient is scheduled to undergo Diagnostic Laparoscopy, possible LINDA, possible FOE, possible BSO on 07/24/[address] Franklin at [facility]. Current Medications: has a current medication list which includes the following prescription(s): acetaminophen, acetaminophen, duloxetine, gabapentin, and lorazepam. Medical History: Active Ambulatory Problems Diagnosis Date Noted Lupus ([facility]) 05/02/2019 KELI (generalized anxiety disorder) ([facility]) 05/20/2023 Ear itching 05/21/2023 Fibromyalgia 05/21/2023 Class 2 obesity due to excess calories without serious comorbidity in adult 05/21/2023 Resolved Ambulatory Problems Diagnosis Date Noted No Resolved Ambulatory Problems Past Medical History: Diagnosis Date Fatigue History of drug use Lumbar back pain Mood disorder ([facility]) Neurocardiogenic syncope Obesity (BMI 30-39.9) Rash of [...] nursing note reviewed. Exam conducted with a derrick helper present. Vitals: Estimated body mass index is [...] reviewed, and patient is to proceed to [facility] OR. Follow Up: Patient is to follow up between 1-2 weeks post operative to assess proper healing and recovery from procedure. Documented by: Aurora Valle LPN on behalf of [place] Franklin DO documented in this encounter [facility] 10-23-2022 Hospital Discharge instructions Tiesha Spencer DO - 10/23/2022 10:09 AM EDT [...] us to take care of you at [facility]. In the next few days you may receive a survey by mail or e-mail asking about the care you received during this visit. Please complete this if you are able, as this feedback helps us provide the best care possible. The following attachments cannot be sent through Care Everywhere.Migraine Headache (Emirati)documented in this encounter [facility] [email or web address] Phone: 10-22-2022 Hospital Discharge instructions Nancy West MD - 10/22/2022 11:37 AM EDT Continue current medications as prescribed. Take Augmentin as directed until complete. Make sure that you stay well-hydrated. Tylenol and or Motrin as needed for pain at home. Use Ary in place of Tylenol for pain not [...] be sent through Care Everywhere.Acute Sinusitis: Video (Emirati)Headache (Emirati)[facility] [employer] Phone: 12-22-2021 Evaluation note Encounter Date Diagnosis Assessment Notes Nov, Fever (ICD-10 - R50.9) Nov, Viral URI (ICD-10 - J06.9) Advised patient that COVID/Influenza A/B PCR test was negative today. [place] test negative. Advised patient that will treat [...] Nov, Fatigue, unspecified type (ICD-10 - R53.83) [employer] Other 01-11-2022 Evaluation note* Encounter Date Diagnosis Assessment Notes Treatment Notes Treatment Clinical Notes May, Contact with and (suspected) exposure [...] for discomfort. Advised patient to call into UC if symptoms are worsening in next 72 [...] Patient care instructions given in writting by [facility] Care At Home document [employer] Other Evaluation note* Diagnosis Nonintractable headache, unspecified chronicity pattern, unspecified headache type- Primary Acute recurrent sinusitis, unspecified location documented in this encounter [employer] Work Phone: evaluation note* Diagnosis Viral syndrome- Primary Unspecified viral infection, in conditions classified elsewhere and of unspecified site Migraine without aura and with status migrainosus, not intractable Migraine without aura, without mention of intractable migraine with status migrainosus Sinus congestion Other diseases of nasal cavity and sinuses documented in this encounter [employer] Phone: evaluation note* Diagnosis Well woman exam with routine gynecological exam Routine gynecological examination Preop examination Unspecified pre-operative examination Menorrhagia with irregular cycle Pelvic pain in female Unspecified symptom associated with female genital organs documented in this encounter [facility]* Diagnosis Right flank pain- Primary Abdominal pain, unspecified site documented in this encounter [id number] noteNo assessment information available [facility] Work Phone: Evaluation note* Diagnosis Fibromyalgia- Primary Unspecified myalgia and myositis KELI (generalized anxiety disorder) ([facility]/HCC) Generalized anxiety disorder Class 2 obesity due to excess calories without serious comorbidity in adult, unspecified BMI documented in this encounter [facility] HealthcareEvaluation note* Diagnosis Fibromyalgia- Primary Unspecified myalgia and myositis documented in this encounter [facility] Healthcare[facility] note* Diagnosis KELI (generalized anxiety disorder) ([facility]/HCC)- Primary Generalized anxiety disorder Ear itching Fibromyalgia Unspecified myalgia and myositis Class 2 obesity due to excess calories without serious comorbidity in adult, unspecified BMI Thrombocytopenia (CMS/HCC)- Primary Unspecified thrombocytopenia Fibromyalgia Unspecified myalgia and myositis Class 2 obesity due to excess calories without serious comorbidity in adult, unspecified BMI KELI (generalized anxiety disorder) (CMS/HCC) Generalized anxiety disorder UTI symptoms RLS (restless legs syndrome) Restless legs syndrome (RLS) KELI (generalized anxiety disorder) ([facility]/HCC)- Primary Generalized anxiety disorder Class 2 obesity due to excess calories without serious comorbidity in adult, unspecified BMI RLS (restless legs syndrome) Restless legs syndrome (RLS) Chronic fatigue Other malaise and fatigue Abnormal weight gain- Primary Class 2 obesity due to excess calories without serious comorbidity in adult, unspecified BMI Tobacco dependence Tobacco use disorder Abnormal weight gain- Primary Class 2 obesity due to excess calories without serious comorbidity in adult, unspecified BMI Subacute maxillary sinusitis- Primary Class 2 obesity due to excess calories without serious comorbidity in adult, unspecified BMI COVID Non-recurrent acute suppurative otitis media of right ear without spontaneous rupture of tympanic membrane Fibromyalgia- Primary Unspecified myalgia and myositis KELI (generalized anxiety disorder) ([facility]) Generalized anxiety disorder Class 2 obesity due to excess calories without serious comorbidity in adult, unspecified BMI Vaginal discharge Leukorrhea, not specified as infective Pelvic pain in female Unspecified symptom associated with female genital organs documented in this encounter [facility]* Diagnosis KELI (generalized anxiety disorder) ([facility])- Primary Generalized anxiety disorder Ear itching Fibromyalgia Unspecified myalgia and myositis Class 2 obesity due to excess calories without serious comorbidity in adult, unspecified BMI Thrombocytopenia ([facility])- Primary Unspecified thrombocytopenia Fibromyalgia Unspecified myalgia and myositis Class 2 obesity due to excess calories without serious comorbidity in adult, unspecified BMI KELI (generalized anxiety disorder) ([facility]) Generalized anxiety disorder UTI symptoms RLS (restless legs syndrome) Restless legs syndrome (RLS) KELI (generalized anxiety disorder) ([facility])- Primary Generalized anxiety disorder Class 2 obesity due to excess calories without serious comorbidity in adult, unspecified BMI RLS (restless legs syndrome) Restless legs syndrome (RLS) Chronic fatigue Other malaise and fatigue Abnormal weight gain- Primary Class 2 obesity due to excess calories without serious comorbidity in adult, unspecified BMI Tobacco dependence Tobacco use disorder Abnormal weight gain- Primary Class 2 obesity due to excess calories without serious comorbidity in adult, unspecified BMI Subacute maxillary sinusitis- Primary Class 2 obesity due to excess calories without serious comorbidity in adult, unspecified BMI COVID Non-recurrent acute suppurative otitis media of right ear without spontaneous rupture of tympanic membrane Fibromyalgia- Primary Unspecified myalgia and myositis KELI (generalized anxiety disorder) ([facility]) Generalized anxiety disorder Class 2 obesity due to excess calories without serious comorbidity in adult, unspecified BMI KELI (generalized anxiety disorder) (CMS/HCC)- Primary Generalized anxiety disorder Class 2 obesity due to excess calories without serious comorbidity with body mass index (BMI) of 35.0 to 35.9 in adult Tobacco dependence Tobacco use disorder Abnormal weight gain documented in this encounter [facility] HealthcareEvaluation note* Diagnosis Lower respiratory infection- Primary Other diseases of respiratory system, not elsewhere classified Acute non-recurrent pansinusitis documented in this encounter [facility]* Diagnosis KELI (generalized anxiety disorder) ([facility])- Primary Generalized anxiety disorder Ear itching Fibromyalgia Unspecified myalgia and myositis Class 2 obesity due to excess calories without serious comorbidity in adult, unspecified BMI Thrombocytopenia ([facility])- Primary Unspecified thrombocytopenia Fibromyalgia Unspecified myalgia and myositis Class 2 obesity due to excess calories without serious comorbidity in adult, unspecified BMI KELI (generalized anxiety disorder) (CMS/HCC) Generalized anxiety disorder UTI symptoms RLS (restless legs syndrome) Restless legs syndrome (RLS) KELI (generalized anxiety disorder) ([facility])- Primary Generalized anxiety disorder Class 2 obesity due to excess calories without serious comorbidity in adult, unspecified BMI RLS (restless legs syndrome) Restless legs syndrome (RLS) Chronic fatigue Other malaise and fatigue Abnormal weight gain- Primary Class 2 obesity due to excess calories without serious comorbidity in adult, unspecified BMI Tobacco dependence Tobacco use disorder Abnormal weight gain- Primary Class 2 obesity due to excess calories without serious comorbidity in adult, unspecified BMI Subacute maxillary sinusitis- Primary Class 2 obesity due to excess calories without serious comorbidity in adult, unspecified BMI COVID Non-recurrent acute suppurative otitis media of right ear without spontaneous rupture of tympanic membrane Fibromyalgia- Primary Unspecified myalgia and myositis KELI (generalized anxiety disorder) (CMS/HCC) Generalized anxiety disorder Class 2 obesity due to excess calories without serious comorbidity in adult, unspecified BMI KELI (generalized anxiety disorder) (CMS/HCC)- Primary Generalized anxiety disorder Class 2 obesity due to excess calories without serious comorbidity with body mass index (BMI) of 35.0 to 35.9 in adult Tobacco dependence Tobacco use disorder Abnormal weight gain KELI (generalized anxiety disorder) (CMS/HCC) Generalized anxiety disorder Fibromyalgia Unspecified myalgia and myositis documented in this encounter [facility] Healthcare[facility] note* Diagnosis KELI (generalized anxiety disorder) (CMS/HCC)- Primary Generalized anxiety disorder Ear itching Fibromyalgia Unspecified myalgia and myositis Class 2 obesity due to excess calories without serious comorbidity in adult, unspecified BMI Thrombocytopenia ([facility])- Primary Unspecified thrombocytopenia Fibromyalgia Unspecified myalgia and myositis Class 2 obesity due to excess calories without serious comorbidity in adult, unspecified BMI KELI (generalized anxiety disorder) ([facility]) Generalized anxiety disorder UTI symptoms RLS (restless legs syndrome) Restless legs syndrome (RLS) KELI (generalized anxiety disorder) ([facility])- Primary Generalized anxiety disorder Class 2 obesity due to excess calories without serious comorbidity in adult, unspecified BMI RLS (restless legs syndrome) Restless legs syndrome (RLS) Chronic fatigue Other malaise and fatigue Abnormal weight gain- Primary Class 2 obesity due to excess calories without serious comorbidity in adult, unspecified BMI Tobacco dependence Tobacco use disorder Fibromyalgia- Primary Unspecified myalgia and myositis KELI (generalized anxiety disorder) ([facility]) Generalized anxiety disorder Class 2 obesity due to excess calories without serious comorbidity in adult, unspecified BMI KELI (generalized anxiety disorder) ([facility])- Primary Generalized anxiety disorder Class 2 obesity due to excess calories without serious comorbidity with body mass index (BMI) of 35.0 to 35.9 in adult Tobacco dependence Tobacco use disorder Abnormal weight gain Acute non-recurrent pansinusitis- Primary Tobacco dependence Tobacco use disorder documented in this encounter [facility]* Diagnosis Abnormal weight gain Class 2 obesity due to excess calories without serious comorbidity in adult, unspecified BMI documented in this encounter [facility]* Diagnosis KELI (generalized anxiety disorder) ([facility])- Primary Generalized anxiety disorder Ear itching Fibromyalgia Unspecified myalgia and myositis Class 2 obesity due to excess calories without serious comorbidity in adult, unspecified BMI Thrombocytopenia ([facility])- Primary Unspecified thrombocytopenia Fibromyalgia Unspecified myalgia and myositis Class 2 obesity due to excess calories without serious comorbidity in adult, unspecified BMI KELI (generalized anxiety disorder) ([facility]) Generalized anxiety disorder UTI symptoms RLS (restless legs syndrome) Restless legs syndrome (RLS) KELI (generalized anxiety disorder) ([facility])- Primary Generalized anxiety disorder Class 2 obesity due to excess calories without serious comorbidity in adult, unspecified BMI RLS (restless legs syndrome) Restless legs syndrome (RLS) Chronic fatigue Other malaise and fatigue Abnormal weight gain- Primary Class 2 obesity due to excess calories without serious comorbidity in adult, unspecified BMI Tobacco dependence Tobacco use disorder Fibromyalgia- Primary Unspecified myalgia and myositis KELI (generalized anxiety disorder) ([facility]) Generalized anxiety disorder Class 2 obesity due to excess calories without serious comorbidity in adult, unspecified BMI KELI (generalized anxiety disorder) ([facility])- Primary Generalized anxiety disorder Class 2 obesity due to excess calories without serious comorbidity with body mass index (BMI) of 35.0 to 35.9 in adult Tobacco dependence Tobacco use disorder Abnormal weight gain Acute non-recurrent pansinusitis- Primary Tobacco dependence Tobacco use disorder KELI (generalized anxiety disorder) ([facility]) Generalized anxiety disorder documented in [facility] encounter [facility]* Diagnosis Dizziness and giddiness- Primary documented in this encounter [facility]* Diagnosis Subacute maxillary sinusitis- Primary Class 2 obesity due to excess calories without serious comorbidity in adult, unspecified BMI COVID Non-recurrent acute suppurative otitis media of right ear without spontaneous rupture of tympanic membrane documented in this encounter [facility]* Diagnosis KELI (generalized anxiety disorder) ([facility])- Primary Generalized anxiety disorder Ear itching Fibromyalgia Unspecified myalgia and myositis Class 2 obesity due to excess calories without serious comorbidity in adult, unspecified BMI Thrombocytopenia ([facility])- Primary Unspecified thrombocytopenia Fibromyalgia Unspecified myalgia and myositis Class 2 obesity due to excess calories without serious comorbidity in adult, unspecified BMI KELI (generalized anxiety disorder) ([facility]) Generalized anxiety disorder UTI symptoms RLS (restless legs syndrome) Restless legs syndrome (RLS) KELI (generalized anxiety disorder) ([facility])- Primary Generalized anxiety disorder Class 2 obesity due to excess calories without serious comorbidity in adult, unspecified BMI RLS (restless legs syndrome) Restless legs syndrome (RLS) Chronic fatigue Other malaise and fatigue Abnormal weight gain- Primary Class 2 obesity due to excess calories without serious comorbidity in adult, unspecified BMI Tobacco dependence Tobacco use disorder Fibromyalgia- Primary Unspecified myalgia and myositis KELI (generalized anxiety disorder) ([facility]) Generalized anxiety disorder Class 2 obesity due to excess calories without serious comorbidity in adult, unspecified BMI KELI (generalized anxiety disorder) ([facility])- Primary Generalized anxiety disorder Class 2 obesity due to excess calories without serious comorbidity with body mass index (BMI) of 35.0 to 35.9 in adult Tobacco dependence Tobacco use disorder Abnormal weight gain Acute non-recurrent pansinusitis- Primary Tobacco dependence Tobacco use disorder Hx of high risk medication treatment Bipolar 1 disorder (CMS/HCC) documented in this encounter [facility] Diagnosis Acute upper respiratory infection- Primary Acute upper respiratory infections of unspecified site documented in this encounter [facility]reyas [facility] Narrative - Reported* Type Description Date Surgical History Gallbladder 2010 Surgical History t&a Surgical History tubal ligation [employer] Other History general Narrative - Reported* Type Description Date Surgical History Gallbladder 2009 Surgical History t&a Surgical History tubal ligation Hospitalization History see above [employer] Other Summary Purpose Family History No Family [...] section and content) DATE CREATED AUTHOR 02/23/2020 [facility] DATE CREATED AUTHOR AUTHOR'S ORGANIZ ATION 08/26/2022 [facility] DATE CREATED AUTHOR AUTHOR'S ORGANIZ ATION 09/26/2023 [facility] DATE CREATED AUTHOR AUTHOR'S ORGANIZ ATION 05/24/2024 [facility] EPIC DATE CREATED AUTHOR AUTHOR'S ORGANIZ ATION 06/06/2024 [facility] DATE CREATED AUTHOR AUTHOR'S ORGANIZ ATION 06/06/2024 [facility] REASON FOR VISIT (unrecogniz ed section and content) Reason Comments Headache Reason Comments Migraine Onset 2 days ago, se en here yesterday for same complaint, was told to come back if symptoms did not improve Congestion Onset 2 days ago Fever Generalized Body Aches Reason Comments Well Women Visit Pre-op Visit Reason Comments Flank Pain Patient presents to the emergency department with complaint of right flank pain that began today. Reports that she has spasms in her bladdyer that began yesterday and a funny smelling urine Reason Comments Positive For Covid-19 Diagnosed with Cov id 02/03. States dizziness, shakiness onset 45 minutes [employer]ERSONAL [employer]. States weakness and dry cough over last several days. Denies chest pain/shortness of breath Reason Comments Vaginal Discharge Reason Comments Cough Ongoing for over a w [place]. Nonproductive, but patient states that she feels that her chest is congested, but she is unable to cough anything up. Denies chest pain. Headache Nasal Congestion Reason Comments Cough Reason Comments Psychiatric Evaluation Specialty Diagnoses / Procedures Referred By Contyuan t Referred To Contact Behavioral Health Diagnoses KELI (generalized anxiety disorder) ([facility]) Procedures [facility] OFFICE/OUTPATIENT [facility] Rosario Escamilla NP [address] [place] [address] Phone: tel: fax: Kayla Narvaez NP [address] [place] [address] Phone: tel: fax: Referral ID Status Reason Start Date Expiration Date V isits Requested Visits Authorized [id number] Closed Specialty Services Required 04/13/2024 10/10/2024 1 1 Reason Comments Med Management Follow-up Reason Comments Concern For COVID-19 Wants tested for co vid, body aches, headaches, back pain. Reports she tested positive at home tonight Letter for School/Work Reports she needs a note for work Ordered Prescriptions (unrec ognized section and content) [...] 10 days 20 tablet 0 10/22/2022 11/01/2022 Prescription Sig Dispensed Refills Start Date End Da te cetirizine (ZYRTEC) 10 MG tablet Take 1 tablet by mouth daily 30 tablet 04/22/2024 promethazine-dextrometho rphan (PROMETHAZINE-DM) 6.25-15 MG/5ML syrup Take 5 mLs by mouth 4 times daily as needed for Cough 200 mL 04/22/2024 05/02/2024 azithromycin (ZITHROMAX) 250 MG tablet 500mg on day 1 followed by 250mg on days 2 - 5 6 tablet 04/22/2024 05/02/2024 Scheduled Active and Recently Administ ered Medications [...] minutes 0857 (New Bag - Prov ider: Nancy Rick RN)0958 (Stopped - Provider: Nancy Rick RN) acetaminophen (TYLENOL) tablet 650 mg (COMPLETED) 650 mg, Oral, ONCE, 1 dose, On Fadumo 10/23/22 at 0845, Maximum dose of acetaminophen is 4000 mg from all sources in 24 hours. 0900 (Given - Provid er: Nancy Rick RN) diphenhydrAMINE (BENADRYL) injection 25 mg (COMPLETED) 25 mg, IntraVENous, ONCE, 1 dose, On Fadumo 10/23/22 at 0845, IV Push at rate not to exceed 25 mg/min. 0858 (Given - Provid er: Nancy Rick RN) haloperidol lactate (HALDOL) injection 2 mg (COMPLETED) 2 mg, IntraVENous, ONCE, 1 dose, On Fadumo 10/23/22 at 0845, IM route of administration preferred. Because of the risk of TdP and QT prolongation, ECG monitoring is recommended if haloperidol is given IV. 0859 (Given - Provid er: Nancy Rick RN) Scheduled Medication Order 09/08/2023 09/09/2023 09/10/2023 acetaminophen (TYLENOL) tablet 650 mg (COMPLETED) 650 mg, Oral, ONCE, 1 dose, On Fadumo 09/10/23 at 1915, Maximum dose of acetaminophen is 4000 mg from all sources in 24 hours. 1923 (Given - Provid er: Padmini Neville RN) Scheduled Medication Order 04/20/2024 04/21/2024 04/22/2024 dexAMETHasone (DECADRON) Oral 6 mg (COMPLETED) 6 mg, Oral, ONCE, On Thu04/22/24 at 1545, For 1 dose 1552 (Given - Provid er: Padmini Neville RN) Scheduled Medication Order 05/29/2024 05/30/2024 05/31/2024 acetaminophen (TYLENOL) tablet 1,000 mg (COMPLETED) 1,000 mg, Oral, ONCE, 1 dose, On Thu05/31/24 at 2145, Maximum dose of acetaminophen is 4000 mg from all sources in 24 hours. 2210 (Given - Provid er: Rosario Chavez RN) Care Teams (unrecognized sec tion and content) Cab Starter Relationship Specialty Start Date End Date Baldemar Galvan MD [address] [place] [address] PCP - General Family Medicine 10/23/22 Cab Starter Relationship Specialty Start Date End Date Luciano Cardona MD PCP - General Family Medicine 12/09/22 Rosario Escamilla NP [address] [place] [address] Referring Physician Nurse Practitioner 12/09/22 Team Status: Inactive Member Role Status Dates Rosario Escamilla Attending Provider Active Start: September 23, 2023 End: September 23, 2023 Cab Starter Relationship Specialty Start Date End Date Luciano Cardona MD [address] [place] [phone] PCP - General Family Medicine 09/21/23 Rosario Escamilla NP [address] [place] [place] [address] Referring Physician Nurse Practitioner 12/09/22 Cab Starter Relationship Specialty Start Date End Date Luciano Cardona MD [address] [place] [phone] PCP - General Family Medicine 09/21/23 Rosario Escamilla NP [address] [place] [phone] Referring Physician Nurse Practitioner 12/09/22 Cab Starter Relationship Specialty Start Date End Date Luciano Cardona MD [address] [place] [address] PCP - General Family Medicine 09/21/23 Rosario Escamilla NP [address] [place] [address] Referring Physician Nurse Practitioner 12/09/22 Cab Starter Relationship Specialty Start Date End Date Luciano Cardona MD [address] [place] [address] PCP - General Family Medicine 09/21/23 Montana Franklin DO [facility] [place] [address] PCP [facility] 02/23/24 Rosario Escamilla NP [address] [place] [address] Referring Physician Nurse Practitioner 12/09/22 Cab Starter Relationship Specialty Start Date End Date Luciano Cardona MD [address] [place] [address] PCP - General Family Medicine 09/21/23 Montana Franklin DO [facility] [place], [place] [id number] PCP [facility] 02/23/24 Rosario Escamilla, SAROJ [address] [place] [address] Referring Physician Nurse Practitioner 12/09/22 Cab Starter Relationship Specialty Start Date End Date Luciano Cardona MD [address] [place] [address] PCP - General [facility] 09/21/23 Montana Franklin DO [facility] [place] [address] [facility] 02/23/24 Rosario Escamilla NP [address] [place] [address] Referring Physician Nurse Practitioner 12/09/22 Cab Starter Relationship Specialty Start Date End Date Luciano Cardona MD [address] [place] [address] PCP - General [facility] 09/21/23 Montana Franklin DO [facility] [place] [address] PCP [facility] 02/23/24 Rosario Escamilla NP [address] [place] [address] Referring Physician Nurse Practitioner 12/09/22 Cab Starter Relationship Specialty Start Date End Date Luciano Cardona MD [address] [place] [address] PCP - General Family Medicine 09/21/23 Montana Franklin DO [facility] [place] [address] PCP - [facility] 02/23/24 Rosario Escamilla, SAROJ [address] [place] [address] Referring Physician Nurse Practitioner 12/09/22 Cab Starter Relationship Specialty Start Date End Date Luciano Cardona MD [address] [place] [phone] PCP - [facility] 09/21/23 Montana Franklin DO [facility] [place] [address] PCP - [facility] 02/23/24 Rosario Escamilla, SAROJ [address] [place] [address] Referring Physician Nurse Practitioner 12/09/22 Cab Starter Relationship Specialty Start Date End Date Luciano Cardona MD [address] [place] [address] PCP - [facility] 09/21/23 Montana Franklin DO [facility] [place] [address] PCP - [facility] 02/23/24 Rosario Escamilla, REEL SLITTER [address] [place] [phone] Referring Physician Nurse Practitioner 12/09/22 Cab Starter Relationship Specialty Start Date End Date Luciano Cardona MD [address] [place] [address] PCP - General Family Medicine 09/21/23 Montana Franklin DO [facility] [place] [address] PCP [facility] 02/23/24 Rosario Escamilla NP [address] [place] [address] Referring Physician Nurse Practitioner 12/09/22 Cab Starter Relationship Specialty Start Date End Date Luciano Cardona MD [address] [place] [address] PCP - General [facility] 09/21/23 Rosario Escamilla NP [address] [place] [address] Referring Physician Nurse Practitioner 12/09/22 Cab Starter Relationship Specialty Start Date End Date Luciano Cardona MD [address] [place] [address] PCP - [facility] 09/21/23 Montana Franklin DO [facility] [place], [place] [phone] [facility] 02/23/24 Rosario Escamilla NP [address] [place] [address] Referring Physician Nurse Practitioner 12/09/22 Cab Starter Relationship Specialty Start Date End Date Luciano Cardona MD [address] [place] [phone] PCP - General Family [facility] 09/21/23 Montana Franklin DO [address] [place] [address] [address] [place], [place] [phone] [facility] 02/23/24 Rosario Escamilla NP [address] [place] [phone] Referring Physician Nurse Practitioner 12/09/22 Cab Starter Relationship Specialty Start Date End Date Luciano Cardona MD [address] [place] [phone] PCP - General Family Medicine 09/21/23 Rosario Escamilla NP [address] [place] [phone] Referring Physician Nurse Practitioner 12/09/22 Cab Starter Relationship Specialty Start Date End Date Luciano Cardona MD [address] [place] [address] PCP - General Family [facility] 09/21/23 Rosario Escamilla NP [address] [place] [address] Referring Physician Nurse Practitioner 12/09/22 Cab Starter Relationship Specialty Start Date End Date Luciano Cardona MD [address] [place] [address] PCP - General [facility] 09/21/23 Montana Franklin DO [address] [place] [address] [place] [address] PCP [facility] 02/23/24 Rosario Escamilla NP [address] [place] [address] Referring Physician Nurse Practitioner 12/09/22 Cab Starter Relationship Specialty Start Date End Date Luciano Cardona MD [address] [place] [phone] PCP - [facility] 09/21/23 Montana Franklin DO [address] [place] [address] [place] [address] [facility] 02/23/24 Rosario Escamilla NP [address] [place] [phone] Referring Physician Nurse Practitioner 12/09/22 Goals (unrecognized section and content) Goals may be documented in a n alternate section FOR RECORDS PERTAINING TO PATIENTS WHO ARE [...] BE BASED ON THE PRIMARY CLINICAL RECORDS. [employer] [facility]. provides no warranty or guarantee of the accuracy or completeness of information in this document.
== END 2024-06-06 20:55 | disposition home or self-care (01) ==
LOC: LAB 20:54
PROVIDERS: PCP Obstetrics & Gynecology
DX: Z92.29 Personal history of other drug therapy (principal)
CPT/HCPCS: 36415; 80053; 80061; 84439; 84443; 85025

== ENCOUNTER 2025-01-31 19:50 | Outpatient (REF) | payer OTHER, SELFPAY ==
--- OUTSIDE RECORDS SUMMARY | 2025-01-31 19:57 | XMS_ITS | CCD ---
Author Organization [facility] [employer] Care Team Providers Care Engine Watchman Name Role Phone Lissette Lee Unavailable Lissette Shin Unavailable AICHHOLZ, 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 ROSARIO Admitting Unavailable AICHHOLZ, 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 ROSARIO Attending Unavailable AICHHOLZ, 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 ROSARIO Primary Care Unavailable AICHHOLZ, 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 ROSARIO Consulting Unavailable AICHHOLZ, 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 ROSARIO Admitting Unavailable AICHHOLZ, 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 ROSARIO Attending Unavailable AICHHOLZ, 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 ROSARIO Primary Care Unavailable AICHHOLZ, 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 ROSARIO Consulting Unavailable AICHHOLZ, 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 ROSARIO Admitting Unavailable AICHHOLZ, 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 ROSARIO Attending Unavailable AICHHOLZ, 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 ROSARIO Primary Care Unavailable AICHHOLZ, 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 ROSARIO Consulting Unavailable AICHHOLZ, 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 ROSARIO Primary Care Unavailable ROBERT ONTIVEROS Consulting Unavailable ROBERT ONTIVEROS Admitting Unavailable ROBERT ONTIVEROS Attending Unavailable AICHHOLZ, 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 ROSARIO Primary Care Unavailable MARICEL .GUSTAVOID Admitting Unavailable MARICEL .GUSTAVOID Attending Unavailable MARICEL ., CAROLYNN Consulting Unavailable AICHHOLZ, 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 ROSARIO Primary Care Unavailable MARICEL .GUSTAVOID Admitting Unavailable MARICEL .GUSTAVOID Attending Unavailable MARICEL ., CAROLYNN Consulting Unavailable AICHHOLZ, 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 ROSARIO Primary Care Unavailable DR MARCY GU Admitting Unavailable DR MARCY GU Attending Unavailable Vikas Saucedo Consulting Unavailable DR MARCY GU Consulting Unavailable AICHHOLZ, 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 ROSARIO Admitting Unavailable AICHHOLZ, 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 ROSARIO Attending Unavailable AICHHOLZ, 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 ROSARIO Primary Care Unavailable AICHHOLZ, 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 ROSARIO Consulting Unavailable AICHHOLZ, 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 ROSARIO Admitting Unavailable AICHHOLZ, 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 ROSARIO Attending Unavailable AICHHOLZ, 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 ROSARIO Primary Care Unavailable AICHHOLZ, 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 ROSARIO Consulting Unavailable Unavailable Primary Care Provider Unavailjessica Galvan MD, Baldemar Primary Care Provider Luciano Cardona MD Primary Care Provider [phone] Francine STARTER MECHANIC, Rosario Unavailable Unavailable Primary Care Provider UnavailRosario Black Attending Unavailable Rosario Escamilla Admitting Unavailable Rosario Escamilla Attending Provider Francine STARTER MECHANIC, Rosario Unavailable Luciano Cardona MD Primary Care Provider [phone] Montana Franklin DO Unavailable NO PCP, NO PCP Primary Care Unavailable Lorelei-Ramiro DIAGRAMMER-Jefry DAUGHERTY Unavailable Obdulio Collins LPC Unavailable Unavailable Rohit DIAGRAMMER - Noah GREGG Primary Care Provider JEFRY PEDRAZA Attending Unavailab OBDULIO Howard Attending Unavailable OBDULIO COLLINS Attending Unavailable JEFRY PEDRAZA Attending Unavailab OBDULIO Howard Attending Unavailable JEFRY PEDRAZA Attending Unavailab OBDULIO Howard Attending Unavailable JEFRY PEDRAZA Attending Unavailab OBDULIO Howard Attending Unavailable JEFRY PEDRAZA Attending Unavailab OBDULIO Howard Attending Unavailable ROSARIO ESCAMILLA Attending Unavailable ROSARIO ESCAMILLA Attending Unavailable AICHHOLZROSARIO Attending Unavailable AICHHOLZMIKEYA Attending Unavailable VONDA WOODS Attending Unavailable ROSARIO ESCAMILLA Attending Unavailable ROSARIO ESCAMILLA Attending Unavailable JEFRY PEDRAZA Attending Unavailab ROSARIO Smith Referring Unavailable JEFRY PEDRAZA Attending Unavailab OBDULIO Howard Attending Unavailable JEFRY PEDRAZA Referring Unavailab Noah Sapp CNP Unavailable ROSALIE NAGY Attending Unavailable GLEN POWELL Attending Unavailable NOAH SANABRIA Primary Care Unavailable NOAH SANABRIA Primary Care Unavailable NOAH SANABRIA Primary Care Unavailable NOAH SANABRIA Referring Unavailable ROSALIE NAGY Attending Unavailable Francine KYLE, Rosario Unavailable Allergies Allergy Classification Reported Allergen(s) Allergy Type Date of Onset Reaction(s) Facility (3 sources) Ampicillin Drug Allergy 5 Other (See Comments) [facility] (3 sources) Nitrofurantoin Drug Allergy 5 Other (See Comments) [facility] (10 sources) atomoxetine Drug Allergy 5 GI intolerance [facility] (1 source) atomoxetine Drug Allergy 5 Nausea And Vomiting [facility] Medications Current Medications Medication Drug Class(es) Dates Sig (Normalized) Sig (Original) acetaminophen 500 mg oral tablet (16 sources) Start: 05-31-2024 take 4000 mg by mouth every twenty-four hours 1,000 mg, Oral, ONCE, 1 dose, On Thu05/31/24 at 2145, Maximum dose of acetaminophen is 4000 mg from all sources in 24 hours. Start: 09-10-2023 acetaminophen (TYLENOL) tablet 650 mg Start: 10-23-2022 acetaminophen (TYLENOL) tablet 650 mg take 2 tablets by mo [facility] every six hours as needed for pain acetaminophen (TYLENOL) 325 MG tablet Take 2 tablets by mouth every 6 hours as needed for Pain Active acetaminophen (T ylenol) 325 MG tablet Take 500 mg by mouth every 4 (four) hours if needed for mild pain 0 Active take 1 tablet by emily every eight hours as needed for pain [...] ORCO) 5-325 MG per tablet 1 tablet [id number] 200 actuat albuterol 0.09 mg/actuat metered dose inhaler (1 source) beta2-Adrenergic Agonist Start: 12-22-2021 take 2 puff(s) by inhalation every four to six hours as needed Albuterol Sulfate HFA 108 (90 Base) MCG/ACT 2 puffs as needed Inhalation every 4-6 hours for 14 days Nov, Active amoxicillin 875 mg / clavulanate 125 mg oral tablet (13 sources) Penicillin-class Antibacterial Start: 01-31-2025 End: 02-07-2025 take 1 tablet by mouth in the morning amoxicillin-cla vulanate (Augmentin) 875-125 MG tablet Indications: Nipple discharge Take 1 tablet (875 mg) by mouth in the morning and 1 tablet (875 mg) before bedtime. Do all this for 7 days. 14 tablet 01/31/2025 02/07/2025 Active Start: 04-28-2024 End: 05-08-2024 take 1 tablet by mouth in the morning amoxicillin-clavulanate (Augmentin) 875-125 MG tablet Indications: Acute non-recurrent [...] 11/01/2022 Active ARIPiprazole 5 mg oral tablet (20 sources) Atypical Antipsychotic Start: 08-02-2024 End: 11-10-2024 take 1 tablet by mouth once daily ARIPiprazole (Abilify) 5 MG tablet Indications: Bipolar 1 disorder (HCC) Take 1 tablet (5 mg) by mouth Daily 30 tablet 1 10/11/2024 Active Start: 05-23-2024 End: 07-30-2024 take 1 tablet by mouth once daily ARIPiprazole (Abilify) 5 MG tablet Indications: Bipolar 1 disorder (CMS/HCC) Take 1 tablet (5 mg) by mouth Daily 30 tablet 1 06/30/2024 07/30/2024 Active azithromycin 250 mg oral tablet (1 [...] oral solution (5 sources) alpha-Adrenergic Agonist, Uncompetitive L-qjkbax-C-aspartat e Receptor Antagonist, Sigma-1 Agonist Start: 04-28-2024 End: 05-05-2024 take 5 mL by mouth four times daily as needed for cough brompheniramine-p seudoephedrine-DM 30-2-10 MG/5ML syrup Indications: Acute non-recurrent pansinusitis Take 5 mL by mouth 4 (four) times a day as needed for congestion or cough for up to 7 days 140 mL 04/28/2024 05/05/2024 Active cefuroxime 500 mg oral tablet (1 source) Cephalosporin Antibacterial Start: 01-12-2025 End: 01-19-2025 take 1 tablet by mouth twice daily cefUROXime (CEFTIN) 500 MG tablet Take 1 tablet by mouth 2 times daily for 7 days 14 tablet 01/12/2025 01/19/2025 Active cetirizine hydrochloride 10 mg oral tablet [...] mg/ml oral solution (1 source) Phenothiazine, Uncompetitive Q-pwcgsz-J-aspartate Receptor Antagonist, Sigma-1 Agonist Start: 04-22-2024 End: 05-02-2024 promethazine-dextromethorpha n (PROMETHAZINE-DM) 6.25-15 MG/5ML syrup Take 5 mLs by mouth 4 times daily as needed for Cough 200 mL 04/22/2024 05/02/2024 Active DULoxetine 30 mg delayed release oral capsule (20 sources) Serotonin and Norepinephrine Reuptake Inhibitor Start: 06-30-2024 End: 06-30-2025 take 1 capsul e by mouth once daily DULoxetine (Cymbalta) [address] capsule Indications: Bipolar 1 disorder (CMS/HCC) Take 1 capsule (30 mg) by mouth Daily Do not crush or chew. 30 capsule 1 06/30/2024 06/30/2025 Active Start: 05-21-2023 End: 06-30-2024 take 1 capsule by mouth in the morning DULoxetine (Cymbalta) [address] capsule Indications: KELI (generalized anxiety disorder) ([facility]) Take 1 capsule (60 mg) by mouth in the morning. 30 capsule 3 04/27/2024 06/30/2024 Discontinued famotidine 20 mg oral tablet (3 sources) Histamine-2 Receptor Antagonist Start: 02-04-2024 End: 02-18-2024 take 1 tablet by mouth once daily famotidine (PEPCID) 20 MG tablet Take 1 tablet by mouth daily for 14 days 14 tablet 02/04/2024 Active fluconazole 150 mg oral tablet (2 sources) Azole Antifungal Start: 01-31-2025 End: 01-31-2025 fluconazole (Diflucan) 150 MG tablet Indications: Vaginal itching Take 1 tablet (150 mg) by mouth 1 (one) time for 1 dose Repeat in 7 days if symptoms persist. 2 tablet 01/31/2025 01/31/2025 Active fluticasone propionate 0.05 mg/actuat metered dose nasal spray (7 sources) Corticosteroid Start: 06-04-2021 take 1 spray(s) nasal route twice daily Flonase Allergy Relief 50 MCG/ACT 1 spray in each nostril Nasally twice a day for 30 day(s) May, Active Fluticasone Prop ionate (FLONASE NA) by Nasal route Active Fluticasone Prop ionate (FLONASE NA) by Nasal route 0 Active ibuprofen 400 mg oral tablet (7 sources) Nonsteroidal Anti-inflammatory Drug Start: 05-26-2023 take 1 tablet by mouth every six hours as needed for pain ibuprofen (IBU) 400 MG tablet Take 1 tablet by mouth every 6 hours as needed for Pain 20 tablet 05/26/2023 Active levonorgestrel 0.073035 mg/hr intrauterine system (20 sources) Progestin, Progestin-containing Intrauterine Device Start: 09-28-2023 End: 09-26-2028 Levonorgestrel intrauterine device 52 mg levonorgestrel ( MIRENA) IUD 52 mg 1 each by IntraUTERine route once Active Levonorgestrel ( MIRENA, 52 MG, IU) by [...] package instructions 21 tablet 04/28/2024 05/05/2024 Active metroNIDAZOLE 500 mg oral tablet (1 source) Nitroimidazole Antimicrobial Start: 01-12-2025 End: 01-22-2025 take 1 tablet by mouth three times daily metroNIDAZOLE (FLAGYL) 500 MG tablet Take 1 tablet by mouth 3 times daily for 10 days 30 tablet 01/12/2025 01/22/2025 Active ondansetron 4 mg disintegrating oral tablet (4 sources) Serotonin-3 Receptor Antagonist Start: 05-26-2023 take 1 tablet by mouth three times daily as needed for nausea ondansetron (ZOFRAN-ODT) 4 MG disintegrating tablet Take 1 tablet by mouth 3 times daily as needed for Nausea or Vomiting 20 tablet 05/26/2023 Active phenazopyridine hydrochloride 100 mg oral tablet (1 source) Start: 01-12-2025 End: 01-15-2025 take 2 tablets by mouth three times daily as needed for pain phenazopyridine (PYRIDIUM) 100 MG tablet Take 2 tablets by mouth 3 times daily as needed for Pain 18 tablet 01/12/2025 01/15/2025 Active phentermine hydrochloride 37.5 mg oral tablet [...] before bedtime Orally Once a day Active sertraline 50 mg oral tablet (20 sources) Serotonin Reuptake Inhibitor Start: End: take 1 tablet by mouth once daily sertraline (Zoloft) 50 MG tablet Indications: Bipolar 1 disorder (HCC) Take 1 tablet (50 mg) by mouth Daily 30 tablet 1 10/11/2024 Active traZODone hydrochloride 50 mg oral tablet (20 sources) Serotonin Reuptake Inhibitor Start: End: traZODone (Desyrel) 50 MG tablet 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 Take 1 tablet (50 mg) by mouth as needed at bedtime for sleep 30 tablet 1 10/11/2024 Active Start: 06-30-2024 End: 07-30-2024 traZODone (Desyrel) 50 MG ta blet 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 Take 1 tablet (50 mg) by mouth as needed at bedtime for sleep 30 tablet 1 06/30/2024 07/30/2024 Active Viloxazine HCl ER (Qelbree) 200 MG capsule sustained-release 24 hr (7 sources) Start: 10-11-2024 End: 11-10-2024 take 1 capsule by mouth once daily, then take 1 capsule by mouth every twenty-four hours Viloxazine HCl ER (Qelbree) 200 MG capsule sustained-release 24 hr Indications: Attention deficit hyperactivity disorder (ADHD), predominantly inattentive type Take 200 mg by mouth Daily 21 capsule 10/11/2024 11/10/2024 Active Start: 10-11-2024 End: 11-10-2024 take 1 capsule by mouth once daily, then take 1 capsule by mouth every twenty-four hours Viloxazine HCl ER (Qelbree) 200 MG capsule sustained-release 24 hr Indications: Attention deficit hyperactivity disorder (ADHD), predominantly inattentive type (CMS/HCC) Take 200 mg by mouth Daily 21 capsule 10/11/2024 11/10/2024 Active Completed/Discontinued Medications Medication Drug Class(es) Dates Sig (Normalized) Sig (Original) atomoxetine 40 mg oral capsule (7 sources) Norepinephrine Reuptake Inhibitor Start: 09-06-2024 End: 10-11-2024 take 1 capsule by mouth in the morning atomoxetine (Strattera) 40 MG capsule Indications: Attention deficit hyperactivity disorder (ADHD), unspecified ADHD type (CMS/HCC) Take 1 capsule (40 mg) by mouth in the morning and 1 capsule (40 mg) before bedtime. Swallow capsule whole; do not open. If opened accidentally, do not touch eyes; wash hands immediately (product is an eye irritant). 60 capsule 1 09/06/2024 10/11/2024 Discontinued (Side effects) cephalexin 500 mg oral capsule (2 sources) [...] 25 mg take 1 capsule by mo uth every six hours as needed diphenhydrAMINE (BENADRYL) 25 MG capsule Take 1 capsule by mouth every 6 hours as needed for Itching Active gabapentin 300 mg oral capsule (20 sources) Anti-epileptic Agent Start: 05-21-2023 End: 10-11-2024 take 1 capsule by mouth in the morning gabapentin (Neurontin) 300 MG capsule Indications: Fibromyalgia Take 1 capsule (300 mg) by mouth in the morning and 1 capsule (300 mg) before bedtime. 60 capsule 3 04/27/2024 10/11/2024 Discontinued (Therapy completed) 1 ml haloperidol 5 mg/ml injection (1 [...] Date Documented Da te Episodic/Chronic Abdominal pain (8 sources) Unspecified abdominal pain; Translations: [Pain in female pelvis] Onset: 2 Episodic Anxiety disorders (20 sources) Generalized anxiety disorder; Translations: [Generalized anxiety disorder] Onset: 3 05-20-2023 Chronic Attention-deficit, conduct, and disruptive behavior disorders (18 sources) Attention deficit hyperactivity disorder; Translations: [Attention-deficit hyperactivity disorder, unspecified type] Onset: 5 09-06-2024 Chronic Attention-deficit, conduct, and disruptive behavior disorders (7 sources) Attention deficit hyperactivity disorder, predominantly inattentive type; Translations: [Attention-deficit hyperactivity disorder, predominantly inattentive type] 10-11-2024 Chronic Bacterial infection; unspecified site (1 source) Other specified bacterial agents as the cause of diseases classified elsewhere; Translations: [Other specified bacterial agents as the cause of diseases classified elsewhere] Onset: 5 Episodic Coagulation and hemorrhagic disorders (20 sources) Thrombocytopenic disorder; Translations: [Thrombocytopenia, unspecified] Onset: 4 Resolved: 5 09-21-2023 Chronic Genitourinary symptoms and ill-defined conditions (20 sources) Unspecified abnormal findings in urine; Translations: [Urinary symptoms ] Onset: 2 Resolved: 4 Episodic Headache; including migraine (1 source) Migraine without aura, not refractory ; Translations: [Migraine without aura, not intractable, with status migrainosus] Chronic Headache; including migraine (3 sources) Headache; Translations: [Nonintractable headache, unspecified chronicity pattern, unspecified headache type] Onset: 5 Episodic Inflammatory diseases of female pelvic organs (2 sources) Bacterial vaginosis; Translations: [Acute vaginitis] Onset: 5 01-12-2025 Episodic Malaise and fatigue (20 sources) Fatigue; Translations: [Chronic fatigue, unspecified] Onset: 4 10-26-2023 Chronic Menstrual disorders (2 sources) Menometrorrhagia; Translations: [Excessive and frequent menstruation with irregular cycle] 07-08-2023 Chronic Miscellaneous mental health disorders (20 sources) Insomnia disorder related to another mental disorder; Translations: [Insomnia due to other mental disorder] Onset: 4 Resolved: 5 05-02-2024 Chronic Mood disorders (20 sources) Bipolar I disorder; Translations: [Bipolar disorder, unspecified] Onset: 5 05-23-2024 Chronic Nonmalignant breast conditions (4 sources) Discharge from nipple; Translations: [Nipple discharge] 01-31-2025 Episodic Other female genital disorders (2 sources) Vaginal discharge; Translations: [Other specified noninflammatory disorders of vagina] 04-12-2024 Episodic Other female genital disorders (2 sources) Pruritus of vagina; Translations: [Other specified noninflammatory disorders of vagina] 01-31-2025 Episodic Other gastrointestinal disorders (3 sources) Diarrhea; Translations: [Diarrhea, unspecified] 11-28-2024 Episodic Other gastrointestinal disorders (1 source) Diarrhea, unspecified; Translations: [Diarrhea, unspecified] Onset: 5 Episodic Other hereditary and degenerative nervous system conditions (20 sources) Restless legs; Translations: [Restless legs syndrome] Onset: 4 09-21-2023 Chronic Other lower respiratory disease (1 source) Lower respiratory tract infection; Translations: [Unspecified acute lower respiratory infection] 04-22-2024 Episodic Other nutritional; endocrine; and metabolic disorders [...] Covid-19; Translations: [Positive For Covid-19] Onset: 4 Urinary tract infections (4 sources) Urinary tract infection, site not specified; Translations: [Acute cystitis] Onset: 2 01-12-2025 Episodic Viral infection (1 source) COVID-19; Translations: [COVID-19] [...] source) Dehydration; Translations: [DEHYDRATION] Onset: 05-05-2022 Episodic Immunizations and screening for infectious disease (1 source) Contact with and (suspected) exposure to other viral communicable diseases Onset: 06-04-2021 Resolved: 06-04-2021 Episodic Inflammation; infection of eye (except that caused by tuberculosis or sexually transmitteddisease) (3 sources) Discoid lupus erythematosus of upper eyelid; Translations: [Discoid lupus erythematosus of unspecified eye, unspecified eyelid] Onset: 05-02-2019 08-24-2024 Episodic Malaise and fatigue (5 sources) Other fatigue; Translations: [OTHER FATIGUE] Onset: 12-22-2021 Resolved: 12-22-2021 Episodic Mood disorders (17 sources) Mood disorders Onset: 08-02-2024 08-02-2024 Nausea and vomiting (4 sources) Nausea with [...] Onset: 05-21-2023 Resolved: 04-28-2024 05-21-2023 Episodic Other lower respiratory disease (1 source) Unspecified acute lower respiratory infection; Translations: [Unspecified acute lower respiratory infection] Onset: 04-22-2024 Episodic Other nutritional; endocrine; and metabolic disorders [...] ERUPTION] Onset: 02-08-2022 Episodic Other upper respiratory infections (20 sources) Sore throat symptom; Translations: [Acute pharyngitis, unspecified] Onset: 06-04-2021 Resolved: 05-12-2024 Episodic Otitis media and related conditions (20 sources) Other acute nonsuppurative otitis media, bilateral; Translations: [Acute suppurative otitis media without spontaneous rupture of ear drum] Onset: 06-04-2021 Resolved: 03-30-2024 Episodic Syncope (3 sources) Syncope; Translations: [Syncope and collapse] Onset: 06-15-2019 Resolved: 08-24-2024 08-24-2024 Episodic Unclassified (1 source) Cough R05.9 Onset: 12-22-2021 Resolved: 12-22-2021 Unclassified (1 source) CONTACT W/AND (SUSP) EXPOS COVID-19; Translations: [CONTACT W/AND (SUSP) EXPOS COVID-19] Onset: 05-20-2022 Viral infection (20 sources) Viral infection, unspecified; Translations: [Viral disease] Onset: 05-05-2022 Resolved: 04-28-2024 Episodic Results Test Name Value Interpretation Reference Range Facility HCG, ,Urineon 01-12 Beta HCG ( test) Ql (U) Negative Normal NEG [facility] Comment on above: Result Comment: Spec imens with hCG levels near the threshold of the test (25 mIU/mL) may give a negative or indeterminate result. In such cases, another test should be performed with a new specimen in 48-72 hours. If early is suspected clinically in this setting, correlation with quantitative serum b-hCG level is suggested. Performed By: #### U HCG, LURDES MARCIAL #### [facility] [address] [place] [address] [place] [address] Sales Representative Metals: Taran De Los Santos MD Microscopic Urinalysison Amorphous sediment LM Ql (Urine sed) TRACE Abnormal None [facility] Bacteria LM Ql (Urine sed) 3+ Abnormal None [facility] Character (U) Few epithelials coated with bacteria resembling clue cells. Abnormal NOT REQ. [facility] Epithelial cells LM.HPF (Urine sed) [#/Area] 10 TO 20 [facility] Interpretation and review of laboratory results Abnormal [facility] RBC LM.HPF (Urine sed) [#/Area] 2 TO 5 [facility] WBC LM.HPF (Urine sed) [#/Area] 10 TO 20 [facility] Urinalysison 08-21-2025 Bilirubin Ql (U) Negative NEGATIVE [facility] Clarity (U) Cloudy Abnormal Clear [facility] Color (U) Yellow Yellow [facility] Glucose Test strip (U) [Mass/Vol] Negative NEGATIVE mg/dL [facility] Hemoglobin Auto test strip Ql (U) 3+ Abnormal NEGATIVE [facility] Interpretation and review of laboratory results Abnormal [facility] Ketones (U) [Mass/Vol] Negative NEGATIVE mg/dL [facility] Leukocyte esterase Test strip Ql (U) SMALL Abnormal NEGATIVE [facility] Nitrite Ql (U) Negative NEGATIVE [facility] pH (U) 6.0 [pH] 5.0 - 9.0 [facility] Protein (U) [Mass/Vol] Negative NEGATIVE mg/dL [facility] Specific gravity (U) [Rel density] 1.020 1.010 - 1.020 [facility] Urobilinogen Qn (U) Normal 0.0 - 1. 0 EU/dL [facility] Urinalysis, Routineon 2024 Bilirubin, SemiQt,Ur Negative Normal NEG [facility] Comment on above: Performed By: #### U HCG, [facility], UA #### [facility] [address] [place] [address] [place] [address] Sales Representative Metals: Taran De Los Santos MD Blood, Urine 3+ Abnormal NEG [facility] Comment on above: Performed By: #### [facility], [facility] #### [facility] [address] [place] [id number] Sales Representative Metals: Taran De Los Santos MD Clarity (U) Cloudy Abnormal CLEAR [facility] Comment on above: Performed By: #### U HCG, [facility], UA #### [facility] [address] [place] [address] Sales Representative Metals: Taran De Los Santos MD Color (U) Yellow Normal YEL [facility] Comment on above: Performed By: #### U HCG, UMICAO, UA #### [facility] [address] [place] [address] Sales Representative Metals: Taran De Los Santos MD Glucose Ql (U) Negative Normal NEG [facility] in Hospital Comment on above: Performed By: #### U HCG, UMICAO, UA #### [facility] [address] [place], [place] [id number] Sales Representative Metals: Taran De Los Santos MD Ketones Ql (U) Negative Normal NEG [facility] in Hospital Comment on above: Performed By: #### U [facility]CG, [facility] #### [facility] [address] [place] [address] Sales Representative Metals: Taran De Los Santos MD Leukocyte esterase Test strip Ql (U) SMALL Abnormal NEG [facility] [facility] Comment on above: Performed By: #### [facility], [facility] #### [facility] [address] [place] [address] Sales Representative Metals: Taran De Los Santos MD Nitrite,Ur Negative Normal NEG [facility] Comment on above: Performed By: #### U HCG, [facility], UA #### [facility] [address] [place] [address] Sales Representative Metals: Taran De Los Santos MD PH,Ur 6.0 Normal 5.0-9.0 [facility] Comment on above: Performed By: #### [facility], [facility] #### [facility] [address] [place] [address] Sales Representative Metals: Taran De Los Santos MD Protein Ql (U) Negative Normal NEG [facility] Comment on above: Performed By: #### [facility], [facility] #### [facility] [address] [place] [address] Sales Representative Metals: Taran De Los Santos MD Spec. Bantam,Ur 1.020 Normal 1.010-1.020 [facility] Comment on above: Performed By: #### U HCG, UMICAO, UA #### [facility] [address] [place], [place] [phone] Sales Representative Metals: Taran De Los Santos MD Urobilinogen,Ur Normal Normal 0.0-1.0 [facility] Comment on above: Performed By: #### U HCG, UMICAO, UA #### [facility] [address] [place], [place] [id number] Sales Representative Metals: Taran De Los Santos MD Urinalysis,Microon 5 Amorphous sediment LM Ql (Urine sed) TRACE Abnormal NONE [facility] Comment on above: Performed By: #### U HCG, UMICAO, UA #### [facility] [address] [place], [place] [phone] Sales Representative Metals: Taran De Los Santos MD Bacteria 3+ Abnormal NONE [facility] Comment on above: Performed By: #### U HCG, UMICAO, UA #### [facility] [address] [place] [address] Sales Representative Metals: Taran De Los Santos MD Epithelial cells LM Ql (Urine sed) 10 TO 20 Normal 0-25 [facility] Comment on above: Performed By: #### U HCG, UMICAO, UA #### [facility] [address] [place], [place] [phone] Sales Representative Metals: Taran De Los Santos MD Other Observations Few epithelials coated with bacteria resembling clue cells. Abnormal NREQ [facility] Comment on above: Performed By: #### U HCG, UMICAO, UA #### [facility] [address] [place] [address] Sales Representative Metals: Taran De Los Santos MD Urine RBC's 2 TO 5 Normal 0-2 [facility] Comment on above: Performed By: #### U HCG, UMICAO, UA #### [facility] [address] [place] [address] Sales Representative Metals: Taran De Los Santos MD Urine WBC's 10 TO 20 Normal 0-5 [facility] Comment on above: Performed By: #### U HCG, AGGIE UA #### [facility] [address] [place] [address] Sales Representative Metals: Taran De Los Santos MD Urine Preg (Lab)on HCG ( test) Ql (U) Negative NEGATIVE [facility] Comment on above: Specimens with hCG l evels near the threshold of the test (25 mIU/mL) may give a negative or indeterminate result. In such cases, another test should be performed with a new specimen in 48-72 hours. If early is suspected clinically in this setting, correlation with quantitative serum b-hCG level is suggested. [facility] CBC with Auto Differentialon 08-24-2024 Basophils (Bld) [#/Vol] 0.04 10*3/uL [facility] Basophils/100 WBC (Bld) 1 % 0 - 2 % [facility] Eosinophils (Bld) [#/Vol] 0.13 10*3/uL [facility] Eosinophils/100 WBC (Bld) 2 % 1 - 4 % [facility] Erythrocyte distribution width (RBC) [Ratio] 12.3 % 11.8 - 14.4 % [facility] Hematocrit (Bld) [Volume fraction] 38.7 % 36.3 - 47.1 % [facility] Hemoglobin (Bld) [Mass/Vol] 13.5 g/dL 11.9 - 15.1 g/dL [facility] Immature granulocytes (Bld) [#/Vol] [facility] Immature granulocytes/100 WBC (Bld) 0 % 0 [facility] Interpretation and review of laboratory results Abnormal [facility] Lymphocytes/100 WBC (Bld) 28 % 24 - 43 % [facility] Lymphocytes/100 WBC (Bld) 1.78 % [facility] MCH (RBC) [Entitic mass] 31.5 pg 25.2 - 33.5 pg [facility] MCHC (RBC) [Mass/Vol] 34.9 g/dL High 28.4 - 34.8 g/dL [facility] MCV (RBC) [Entitic vol] 90.2 fL 82.6 - 102.9 fL [facility] Monocytes/100 WBC (Bld) 8 % 3 - 12 % [facility] Monocytes/100 WBC (Bld) 0.52 % [facility] Neutrophils/100 WBC (Bld) 61 % 36 - 65 % [facility] Nucleated RBC/100 WBC (Bld) [Ratio] 0 % 0.0 per 100 WBC [facility] Platelet mean volume (Bld) [Entitic vol] 10.5 fL 8.1 - 13.5 fL [facility] Platelets (Bld) [#/Vol] 181 10*3/uL [facility] RBC (Bld) [#/Vol] 4.29 10*6/uL 3.95 - 5.1 1 m/uL [facility] Segmented neutrophils/100 WBC (Bld) 3.81 % [facility] WBC other (Bld) [#/Vol] 6.3 [facility] CBC with Diffon 08-24-2024 Abs. Basophil 0.04 k/uL Normal 0.00-0.20 [facility] Comment on above: Performed By: #### C DP, CP #### [facility] [address] [place] [address] Sales Representative Metals: Taran De Los Santos MD #### GLYHGB #### [facility] [place], [place] [phone] Sales Representative Metals: Enrique Ortega MD Abs.Imm.Granulocyte <0.03 Normal 0.00-0.30 [facility] Comment on above: Performed By: #### C DP, CP #### [facility] [address] [place] [address] Sales Representative Metals: Taran De Los Santos MD #### GLYHGB #### [address] [place] [address] Sales Representative Metals: Enrique Ortega MD Abs.Neutrophil (Seg) 3.81 k/uL Normal 1.50-8.10 [facility] Comment on above: Performed By: #### C DP, CP #### [facility] [address] [place] [address] [address] [place] [phone] Sales Representative Metals: Taran De Los Santos MD #### GLYHGB #### [address] [address] Sales Representative Metals: Enrique Ortega MD Basophils/100 WBC (Bld) 1 % Normal 0-2 [facility] Comment on above: Performed By: #### C DP, CP #### [address] [place] [phone] Sales Representative Metals: Taran De Los Santos MD #### GLYHGB #### [place] [address] Sales Representative Metals: Enrique Ortega MD Eosinophils (Bld) [#/Vol] 0.13 10*3/uL Normal 0.00-0.44 [facility] Comment on above: Performed By: #### C DP, CP #### [address] [place] [phone] Sales Representative Metals: Taran De Los Santos MD #### GLYHGB #### [place] [address] Sales Representative Metals: Enrique Ortega MD Eosinophils/100 WBC (Bld) 2 % Normal 1-4 [facility] Comment on above: Performed By: #### C DP, CP #### [address] [place] [phone] Sales Representative Metals: Taran De Los Santos MD #### GLYHGB #### [address] [address] Sales Representative Metals: Enrique Ortega MD Erythrocyte distribution width (RBC) [Ratio] 12.3 % Normal 11.8-14.4 [facility] Comment on above: Performed By: #### C DP, CP #### [address] [place] [place], [place] [phone] Sales Representative Metals: Taran De Los Santos MD #### GLYHGB #### [address] [address] Sales Representative Metals: Enrique Ortega MD Hematocrit (Bld) [Volume fraction] 38.7 % Normal 36.3-47.1 [facility] Comment on above: Performed By: #### C DP, CP #### [address] [place] [phone] Sales Representative Metals: Taran De Los Santos MD #### GLYHGB #### [address] [address] Sales Representative Metals: Enrique Ortega MD Hemoglobin (Bld) [Mass/Vol] 13.5 g/dL Normal 11.9-15.1 [facility] Comment on above: Performed By: #### C DP, CP #### [address] [place] [phone] Sales Representative Metals: Taran De Los Santos MD #### GLYHGB #### [address] [address] Sales Representative Metals: Enrique Ortega MD Immature granulocytes/100 WBC (Bld) 0 % Normal 0 [facility] Comment on above: Performed By: #### C DP, CP #### [address] [place], [place] [phone] Sales Representative Metals: Taran De Los Santos MD #### GLYHGB #### [address] [address] Sales Representative Metals: Enrique Ortega MD Lymphocytes (Bld) [#/Vol] 1.78 10*3/uL Normal 1.10-3.70 [facility] Comment on above: Performed By: #### C DP, CP #### [facility] [address] [place] [address] [place] [address] Sales Representative Metals: Taran De Los Santos MD #### GLYHGB #### [address] [phone] Sales Representative Metals: Enrique Ortega MD Lymphocytes/100 WBC (Bld) 28 % Normal 24-43 [facility] Comment on above: Performed By: #### C DP, CP #### [address] [place] [phone] Sales Representative Metals: Taran De Los Santos MD #### GLYHGB #### [address] [phone] Sales Representative Metals: Enrique Ortega MD MCH (RBC) [Entitic mass] 31.5 pg Normal 25.2-33.5 [facility] Comment on above: Performed By: #### C DP, CP #### [address] [place] [phone] Sales Representative Metals: Taran De Los Santos MD #### GLYHGB #### [place] [address] Sales Representative Metals: Enrique Ortega MD MCHC (RBC) [Mass/Vol] 34.9 g/dL High 28.4-34.8 [facility] Comment on above: Performed By: #### C DP, CP #### [address] [place] [phone] Sales Representative Metals: Taran De Los Santos MD #### GLYHGB #### [address] [phone] Sales Representative Metals: Enrique Ortega MD MCV (RBC) [Entitic vol] 90.2 fL Normal 82.6-102.9 [facility] Comment on above: Performed By: #### C DP, CP #### [facility] [address] [place], [place] 3295483 Sales Representative Metals: Taran De Los Santos MD #### GLYHGB #### [address] [address] Sales Representative Metals: Enrique Ortega MD Monocytes (Bld) [#/Vol] 0.52 10*3/uL Normal 0.10-1.20 [facility] Comment on above: Performed By: #### C DP, CP #### [facility] [address] [place] [address] [address] [place], [place] 8834083 Sales Representative Metals: Taran De Los Santos MD #### GLYHGB #### [address] [address] Sales Representative Metals: Enrique Ortega MD Monocytes/100 WBC (Bld) 8 % Normal 3-12 [facility] Comment on above: Performed By: #### C DP, CP #### [facility] [address] [place] [address] Dr[address] [place], [place] [phone] Sales Representative Metals: Taran De Los Santos MD #### GLYHGB #### [address] [address] Sales Representative Metals: Enrqiue Ortega MD Neutrophil (Seg) 61 % Normal 36-65 [facility] Comment on above: Performed By: #### C DP, CP #### [facility] [address] [place] [address] [place] [address] Sales Representative Metals: Taran De Los Santos MD #### GLYHGB #### [address] [address] Sales Representative Metals: Enrique Ortega MD NRBC Automated 0.0 per 100 WBC Normal 0.0 [facility] Comment on above: Performed By: #### C DP, CP #### [facility] [address] [place] [address] Sales Representative Metals: Taran De Los Santos MD #### GLYHGB #### [address] [place], [place] [phone] Sales Representative Metals: Enrique Ortega MD Platelet mean volume (Bld) [Entitic vol] 10.5 fL Normal 8.1-13.5 [facility] Comment on above: Performed By: #### C DP, CP #### [facility] [address] [place] [address] Sales Representative Metals: Taran eD Los Santos MD #### GLYHGB #### [address] [place], [place] [phone] Sales Representative Metals: Enrique Ortega MD Platelets (Bld) [#/Vol] 181 10*3/uL Normal 138-453 [facility] Comment on above: Performed By: #### C DP, CP #### [facility] [address] [place] [address] Sales Representative Metals: Taran De Los Santos MD #### GLYHGB #### [address] [place], [place] [phone] Sales Representative Metals: Enrique Ortega MD RBC (Bld) [#/Vol] 4.29 10*6/uL Normal 3.95-5.11 [facility] Comment on above: Performed By: #### C DP, CP #### [facility] [address] [place] [address] Sales Representative Metals: Taran De Los Santos MD #### GLYHGB #### [address] [place], [place] [phone] Sales Representative Metals: Enrique Ortega MD WBC (Bld) [#/Vol] 6.3 10*3/uL Normal 3.5-11.3 [facility] Comment on above: Performed By: #### C DP, CP #### [facility] [address] [place], [place] 6430583 Sales Representative Metals: Taran De Los Santos MD #### GLYHGB #### [address] [address] Sales Representative Metals: Enrique Ortega MD Comp Metabolic Profon 2024 Albumin [Mass/Vol] 4.3 g/dL Normal 3.5-5.2 [facility] Comment on above: Performed By: #### C DP, CP #### [facility] [address] [place], [place] 7092483 Sales Representative Metals: Taran De Los Santos MD #### GLYHGB #### [address] [address] Sales Representative Metals: Enrique Ortega MD Albumin/Glob Ratio 1.8 Normal 1.0-2.5 [facility] Comment on above: Performed By: #### C DP, CP #### [address] [place], [place] 4312983 Sales Representative Metals: Taran De Los Santos MD #### GLYHGB #### [address] [address] Sales Representative Metals: Enrique Ortega MD Alkaline Phos 72 U/L Normal 35-104 [facility] Comment on above: Performed By: #### C DP, CP #### [address] [place], [place] 1531883 Sales Representative Metals: Taran De Los Santos MD #### GLYHGB #### [address] [place] [address] Sales Representative Metals: Enrique Ortega MD ALT [Catalytic activity/Vol] 10 U/L Normal 10-35 [facility] Comment on above: Performed By: #### C DP, CP #### [facility] [address] [place] [address] Dr. [place], [place] [phone] Sales Representative Metals: Taran De Los Santos MD #### GLYHGB #### [facility] [address] [place] [address] Sales Representative Metals: Enrique Ortega MD Anion gap [Moles/Vol] 10 mmol/L Normal 9-16 [facility] Comment on above: Performed By: #### C DP, CP #### [facility] [address] [place], [place] 2814483 Sales Representative Metals: Taran De Los Santos MD #### GLYHGB #### [address] [place], [place] 9263908 Sales Representative Metals: Enrique Ortega MD AST [Catalytic activity/Vol] 16 U/L Normal 10-35 [facility] Comment on above: Performed By: #### C DP, CP #### [address] [place], [place] [phone] Sales Representative Metals: Taran De Los Santos MD #### GLYHGB #### [address] [address] Sales Representative Metals: Enrique Ortega MD Bilirubin [Mass/Vol] 0.4 mg/dL Normal 0.00-1.20 [facility] Comment on above: Performed By: #### C DP, CP #### [address] [place], [place] 8329583 Sales Representative Metals: Taran De Los Santos MD #### GLYHGB #### [address] [address] Sales Representative Metals: Enrique Ortega MD BUN/CRE Ratio 11 Normal 9-20 [facility] Comment on above: Performed By: #### C DP, CP #### [facility] [address] [place], [place] 2967283 Sales Representative Metals: Taran De Los Santos MD #### GLYHGB #### [address] [address] Sales Representative Metals: Enrique Ortega MD Calcium [Mass/Vol] 9.0 mg/dL Normal 8.6-10.4 [facility] Comment on above: Performed By: #### C DP, CP #### [facility] [address] [place], [place] 4091883 Sales Representative Metals: Taran De Los Santos MD #### GLYHGB #### [address] [address] Sales Representative Metals: Enrique Ortega MD Chloride [Moles/Vol] 106 mmol/L Normal 98-107 [facility] Comment on above: Performed By: #### C DP, CP #### [facility] [address] [place] [address] Dr. [place], [place] 7986483 Sales Representative Metals: Taran De Los Santos MD #### GLYHGB #### [address] [address] Sales Representative Metals: Enrique Ortega MD CO2 [Moles/Vol] 24 mmol/L Normal 20-31 [facility] Comment on above: Performed By: #### C DP, CP #### [facility] [address] [place] [address] [address], [place] [phone] Sales Representative Metals: Taran De Los Santos MD #### GLYHGB #### [address] [address] Sales Representative Metals: Enrique Orteag MD Creatinine [Mass/Vol] 0.7 mg/dL Normal 0.50-0.90 [facility] Comment on above: Performed By: #### C DP, CP #### [facility] [address] [place], [place] 9124983 Sales Representative Metals: Taran De Los Santos MD #### GLYHGB #### [address] [address] Sales Representative Metals: Enrique Ortega MD GFR/1.73 sq M.predicted among non-blacks MDRD (S/P/Bld) [Vol rate/Area] mL/min/{1.73_m2} Normal >60 [facility] Comment on above: Result Comment: These results [...] tubular secretion. Performed By: #### C DP, CP #### [facility] [address] [place] [address] [place] [address] Sales Representative Metals: Taran De Los Santos MD #### GLYHGB #### [address] [phone] Sales Representative Metals: Enrique Ortega MD Glucose [Mass/Vol] 112 mg/dL High 74-99 [facility] Comment on above: Performed By: #### C DP, CP #### [address] [place] [address] Sales Representative Metals: Taran De Los Santos MD #### GLYHGB #### [address] [phone] Sales Representative Metals: Enrique Ortega MD Potassium [Moles/Vol] 3.7 mmol/L Normal 3.7-5.3 [facility] Comment on above: Performed By: #### C DP, CP #### [facility] [address] [place] [address] [place] [address] Sales Representative Metals: Taran De Los Santos MD #### GLYHGB #### [address] [address] Sales Representative Metals: Enrique Ortega MD Protein [Mass/Vol] 6.7 g/dL Normal 6.6-8.7 [facility] Comment on above: Performed By: #### C DP, CP #### [facility] [address] [place], [place] 0338383 Sales Representative Metals: Taran De Los Santos MD #### GLYHGB #### [facility] [address] [place], [place] [phone] Sales Representative Metals: Enrique Ortega MD Sodium [Moles/Vol] 140 mmol/L Normal 136-145 [facility] Comment on above: Performed By: #### C DP, CP #### [facility] [address] [place] [address] Sales Representative Metals: Taran De Los Santos MD #### GLYHGB #### [facility] [address] [place], [place] [phone] Sales Representative Metals: Enrique Ortega MD Urea nitrogen [Mass/Vol] 8 mg/dL Normal 6-20 [facility] Comment on above: Performed By: #### C DP, CP #### [facility] [address] [place], [place] [phone] Sales Representative Metals: Taran De Los Santos MD #### GLYHGB #### [facility] [address] [place], [place] [phone] Sales Representative Metals: Enrique Ortega MD Comprehensive Metabolic Pane [facility] 08-24-2024 Albumin [Mass/Vol] 4.3 g/dL 3.5 - 5.2 g/dL [facility] Albumin/Globulin [Mass ratio] 1.8 {ratio} 1.0 - 2.5 [facility] ALP [Catalytic activity/Vol] 72 U/L 35 - 104 U/L [facility] ALT [Catalytic activity/Vol] 10 U/L 10 - 35 U/L [facility] Anion gap [Moles/Vol] 10 mmol/L 9 - 16 mmol/L [facility] AST [Catalytic activity/Vol] 16 U/L 10 - 35 U/L [facility] Bilirubin [Mass/Vol] 0.4 mg/dL 0.00 - 1.20 mg/dL [facility] Calcium [Mass/Vol] 9 mg/dL 8.6 - 10. 4 mg/dL [facility] Chloride [Moles/Vol] 106 mmol/L 98 - 10 7 mmol/L [facility] CO2 [Moles/Vol] 24 mmol/L 20 - 31 mmol/L [facility] Creatinine [Mass/Vol] 0.7 mg/dL 0.50 - 0.90 mg/dL [facility] Est, Glosobia Petersont Rate - PINF [facility] Comment on above: These results are not [...] that affects renal tubular secretion. Glucose [Mass/Vol] 112 mg/dL High 74 - 99 mg/dL [facility] Interpretation and review of laboratory results Abnormal [facility] Potassium [Moles/Vol] 3.7 mmol/L 3.7 - 5.3 mmol/L [facility] Protein [Mass/Vol] 6.7 g/dL 6.6 - 8.7 g/dL [facility] Sodium [Moles/Vol] 140 mmol/L 136 - 145 mmol/L [facility] Urea nitrogen [Mass/Vol] 8 mg/dL 6 - 20 mg/dL [facility] Urea nitrogen/Creatinine [Mass ratio] 11 mg/mg 9 - 20 [facility] Hemoglobin A1Con 08-24-2024 Average glucose Estimated from glycated hemoglobin (Bld) [Mass/Vol] 85 mg/dL [facility] Comment on above: The ADA and AACC rec ommend providing the estimated average glucose result to permit better patient understanding of their HBA1c result. HbA1c (Bld) [Mass fraction] 4.6 % 4.0 - 6.0 % [facility] Glucose [Mass/Vol] 85 mg/dL Normal [facility] Comment on above: Result Comment: The ADA and AACC recommend providing the estimated average glucose result to permit better patient understanding of their HBA1c result. Performed By: #### C DP, CP #### [facility] [address] [place] [address] [place] [address] Sales Representative Metals: Taran De Los Santos MD #### GLYHGB #### [address] [phone] Sales Representative Metals: Enrique Orteag MD HbA1c (Bld) [Mass fraction] 4.6 % Normal 4.0-6.0 [facility] Comment on above: Performed By: #### C DP, CP #### [address] [place] [address] Sales Representative Metals: Taran De Los Santos MD #### GLYHGB #### [address] [phone] Sales Representative Metals: Enrique Ortega MD TSH reflex to FT4on 08-25-19 TSH Qn 2.63 m[IU]/L [facility] TSH w/reflex to FT4on 2024 Thyroid Stim. Horm. 2.63 uIU/mL Normal 0.27-4.20 [facility] Comment on above: Performed By: #### T SHX ####[address] [place] [address] Lab Director: Taran De Los Santos MD COVID-19, Rapidon 05-31-2024 SARS-CoV-2 (COVID-19) RdRp gene AMPARO+probe Ql (Resp) Not detected Not Detected [facility] [facility] Comment [facility] above: Rapid NAAT: The specimen [...] Nucleic Acid Amplification Specimen Description .NASOPHARYNGEAL SWAB [facility] Flu A/B Ag Detectionon 05-31 Flu A Ag Detection Negative Normal NEG [facility] Comment on above: Result Comment: for Influenza A Antigen Performed By: #### F LUABA ####[facility] [place] [address] Lab Director: Taran De Los Santos MD Flu B Ag Detection Negative Normal NEG [facility] Comment on above: Result Comment: for Influenza B Antigen. Performed By: #### F LUABA ####[facility] [place] [address] lab Director: Taran De Los Santos MD Rapid influenza A/B antigens on 05-31-2024 FLUAV Ag Ql (Unsp spec) Negative NEGATIVE [facility] Comment on above: for Influenza A Anti gen FLUBV Ag Ql (Unsp spec) Negative NEGATIVE [facility] Comment on above: for Influenza B Anti gen. [facility] [id number] 05-31-2024 SARS-CoV-2 (COVID-19) RNA AMPARO+probe Ql (Unsp spec) Not detected Normal NOTDET [facility] Comment on above: Result Comment: Rapid NAAT: [...] Acid Amplification Performed By: #### C OVRB ####[facility] [place] [address] lab Director: Taran De Los Santos MD XR CHEST [...] Lenin Hewitt MD 04/22/24 Final result Normal [facility] XR Chest 2 Viewson No acute cardiopulmonary process. [facility]: TWO XRAY VIEWS OF [...] unremarkable. There is no acute osseous abnormality. PN RIS CONSOLIDATED Lenin Hewitt MD - 04/22/2024 [...] osseous abnormality. IMPRESSION: No acute cardiopulmonary process. [facility] Radiology Study observation (narrative) [facility] XR Chest 2 ViewsOrdered By: Lenin Hewitt on 04-22-2024 [facility] Work Phone: No Panel Informationon 04-13 STAPHYLOCOCCUS EPIDERMIDIS, HAEMOLYTICUS, LUGDUNENSIS, SAPROPHYTICUS (URINA 0 [facility] STAPHYLOCOCCUS EPIDERMIDIS, HAEMOLYTICUS, LUGDUNENSIS, SAPROPHYTICUS (URINA Not detected [facility] URINARY TRACT INFECTION (HTR X)on 04-13-2024 ACINETOBACTER BAUMANII 0 [facility] ACINETOBACTER BAUMANII Not detected [facility] CÉSAR ALBICANS, PARAPSILOSIS, TROPICALIS 0 [facility] CÉSAR ALBICANS, PARAPSILOSIS, TROPICALIS Not detected [facility] CÉSAR GLABRATA 0 [facility] CÉSAR GLABRATA Not detected [facility] CÉSAR KRUSEI 0 [facility] C[facility]SAR KRUSEI Not detected [facility] CITROBACTER FREUNDII 0 [facility] CITROBACTER FREUNDII Not detected NO [facility] ENTEROBACTER AEROGENES, CLOACAE 0 [facility] Healthid re ENTEROBACTER AEROGENES, CLOACAE Not detected [facility] ENTEROCOCCUS FAECALIS, FAECIUM 0 [facility] ENTEROCOCCUS FAECALIS, FAECIUM Not detected [facility] ESCHERICHIA COLI 0 [facility] ESCHERICHIA COLI Not detected [facility] KLEBSIELLA PNEUMONIAE, OXYTOCA 0 [facility] are KLEBSIELLA PNEUMONIAE, OXYTOCA Not detected [facility] are MORGANELLA MORGANII 0 [facility] MORGANELLA MORGANII Not detected [facility] PROTEUS MIRABILIS, VULGARIS 0 [facility] PROTEUS MIRABILIS, VULGARIS Not detected [facility] PSEUDOMONAS AERUGINOSA 0 [facility] PSEUDOMONAS AERUGINOSA Not detected [facility] SERRATIA MARCESCENS 0 [facility] SERRATIA MARCESCENS Not detected [facility] STAPHYLOCOCCUS AUREUS 0 [facility] STAPHYLOCOCCUS AUREUS Not detected [facility] STREPTOCOCCUS AGALACTIAE (GROUP B STREP) 0 [facility] STREPTOCOCCUS AGALACTIAE (GROUP B STREP) Not detected [facility] STREPTOCOCCUS PYOGENES (GROUP A STREP) 0 [facility] STREPTOCOCCUS PYOGENES (GROUP A STREP) Not detected [facility] ALL CBC WITH AUTO DIFFon BASOPHILS ABSOLUTE AUTO 0.1 [facility] Basophils/100 WBC (Bld) 0.7 % 0.2 - 2.0 % [facility] Eosinophils/100 WBC (Bld) 2.1 % 0.9 - 7.0 % [facility] Erythrocyte distribution width (RBC) [Ratio] 12.5 % 11.0 - 15.0 % [facility] Hematocrit (Bld) [Volume fraction] 41.4 % 36.0 - 48.0 % [facility] Healthcar e Hemoglobin (Bld) [Mass/Vol] 14.1 g/dL 12.0 - 16.0 g/dL [facility] IMMATURE GRANULOCYTES ABS AUTO 0.01 [facility] Immature granulocytes/100 WBC (Bld) 0.1 % 0.0 - 0.5 % [facility] LYMPHOCYTES ABSOLUTE AUTO 1.9 [facility] Lymphocytes/100 WBC (Bld) 27.6 % 20.5 - 60.0 % [facility] MCH (RBC) [Entitic mass] 31.6 pg 26.7 - 34.0 pg [facility] MCHC (RBC) [Mass/Vol] 34.1 g/dL 29.9 - 35.2 g/dL [facility] MCV (RBC) [Entitic vol] 92.8 fL 81.0 - 99.0 fL [facility] MONOCYTES ABSOLUTE AUTO 0.6 [facility] Monocytes/100 WBC (Bld) 9 % 1.7 - 12.0 % [facility] NEUTROPHILS ABSOLUTE AUTO 4.2 [facility] Neutrophils/100 WBC (Bld) 60.5 % 43.0 - 75.0 % [facility] Platelet mean volume (Bld) [Entitic vol] 10 fL 9.5 - 13.5 fL [facility] EO # 0.2 [facility] Healthcar e TB PLT 198 [facility] TB RBC 4.46 [facility] WBC 7 [facility] Urinalysis macro (dipstick) panel (U)on 04-12-2024 Bilirubin, UA Negative Negative - 4(70) +++ mg/dL [facility] Blood, UA Positive Negative - 50 Papito/mcL [facility] Clarity, UA Clear [facility] re Color, UA Yellow [facility] e Glucose, UA Negative Negative - 2000(110) ++++ mg/dL [facility] Interpretation and review of laboratory results Abnormal [facility] Ketones, UA Negative Negative - 160(16) ++++ mg/dL [facility] Leukocytes, UA Negative Negative - 500+++ Cedric/mcL [facility] Nitrite, UA Negative Negative - Positive [facility] pH, UA 6 5 - 9 [facility] Protein, UA Negative Negative - 2000(20) ++++ mg/dL [facility] Spec Grav, UA 1.02 1 - 1.03 [facility] care Urobilinogen, UA 1.0 0.2 - 12 mg/dL [facility] Healthcar e Cult,Urineon 02-10-2024 Cult,Urine Specimen Description .CLEAN CATCH URINE Culture NO SIGNIFICANT GROWTH Report Status FINAL 02/10/2024 Normal [facility] Comment on above: Performed By: #### U RC ####[facility] [place], [place] [id number] Lab Director: Enrique Ortega [address] [place], [place] [address] Lab Director: Taran De Los Santos MD Basic Metabolic Profon 02-07 Anion gap [Moles/Vol] 11 mmol/L Normal - [facility] Comment on above: Performed By: #### T WHITLEY UMANZOR, BMP ####[address] , [place] [id number] Lab Director: Taran De Los Santos MD BUN/CRE Ratio 11 Normal 02-11 [facility] Comment on above: Performed By: #### WHITLEY CHA, BMP ####[address] , [place] [id number] Lab Director: Taran De Los Santos MD Calcium [Mass/Vol] 9.6 mg/dL Normal 8.6-10.4 [facility] Comment on above: Performed By: #### WHITLEY CHA, BMP ####[address] [place] [address] Lab Director: Taran De Los Santos MD Chloride [Moles/Vol] 103 mmol/L Normal 98-107 [facility] Comment on above: Performed By: #### T WHITLEY UMANZOR, BMP ####[address] [place] [address] Lab Director: Taran De Los Santos MD CO2 [Moles/Vol] 26 mmol/L Normal 20-31 [facility] Comment on above: Performed By: #### T WHITLEY UMANZOR, BMP ####[facility] , [place] [id number] Lab Director: Taran De Los Santos MD Creatinine [Mass/Vol] 0.9 mg/dL Normal 0.50-0.90 [facility] Comment on above: Performed By: #### T WHITLEY UMANZOR, BMP ####[address] [place] [address] Lab Director: Taran De Los Santos MD GFR/1.73 sq M.predicted among non-blacks MDRD (S/P/Bld) [Vol rate/Area] 85 mL/min/{1.73_m2} Normal >60 [facility] Comment on above: Result Comment: These results [...] renal tubular secretion. Performed By: #### T WHITLEY UMANZOR, BMP ####[address] [place] [address] Lab Director: Taran De Los Santos MD Glucose [Mass/Vol] 98 mg/dL Normal 74-99 [facility] Comment on above: Performed By: #### T WHITLEY UMANZOR, BMP ####[facility] , [place] [address] Lab Director: Taran De Los Santos MD Potassium [Moles/Vol] 4.0 mmol/L Normal 3.7-5.3 [facility] Comment on above: Performed By: #### T WHITLEY UMANZOR, BMP ####[address] , [place] [address])[phone] Director: Taran De Los Santos MD Sodium [Moles/Vol] 140 mmol/L Normal 136-145 [facility] Comment on above: Performed By: #### T WHITLEY UMANZOR, BMP ####[address] , [place] [address] [facility] Director: Taran De Los Santos MD Urea nitrogen [Mass/Vol] 10 mg/dL Normal 6-20 [facility] Comment on above: Performed By: #### T WHITLEY UMANZOR, BMP ####[address] , [facility]83 [facility] Director: Taran De Los Santos MD CBC with Diffon 02-08-2024 Abs. Basophil 0.03 k/uL Normal 0.00-0.20 [facility] Comment on above: Performed By: #### T WHITLEY UMANZOR, BMP #### [address] [place], [place] [address] [employer]: Taran De Los Santos MD Abs.Imm.Granulocyte <0.03 Normal 0.00-0.30 [facility] Comment on above: Performed By: #### T WHITLEY UMANZOR, BMP #### [address] [place], [place] [address] [employer]: Taran De Los Santos MD Abs.Neutrophil (Seg) 3.12 k/uL Normal 1.50-8.10 [facility] Comment on above: Performed By: #### T WHITLEY UMANZOR, BMP #### [address] [place], [facility]83 [employer]: Taran De Los Santos MD Basophils/100 WBC (Bld) 1 % Normal 0-2 [facility] Comment on above: Performed By: #### T WHITLEY UMANZOR, BMP #### [facility] [address] [place] [address] [employer]: Taran De Los Santos MD Eosinophils (Bld) [#/Vol] 0.11 10*3/uL Normal 0.00-0.44 [facility] Comment on above: Performed By: #### T WHITLEY UMANZOR, BMP #### [facility] [address] [place], [place] [address] [employer]: Taran De Los Santos MD Eosinophils/100 WBC (Bld) 2 % Normal 1-4 [facility] Comment on above: Performed By: #### WHITLEY CHA, BMP #### [address] [place] [phone] [employer]: Taran De Los Santos MD Erythrocyte distribution width (RBC) [Ratio] 12.2 % Normal 11.8-14.4 [facility] Comment on above: Performed By: #### WHITLEY CHA, BMP #### [address] [place] [phone] [employer]: Taran De Los Santos MD Hematocrit (Bld) [Volume fraction] 44.3 % Normal 36.3-47.1 [facility] Comment on above: Performed By: #### WHITLEY CHA, BMP #### [address] [place] [address] [employer]: Taran De Los Santos MD Hemoglobin (Bld) [Mass/Vol] 15.3 g/dL High 11.9-15.1 [facility] Comment on above: Performed By: #### T WHITLEY UMANZOR, BMP #### [address] [place] [place], [place] [address] [employer]: Taran De Los Santos MD Immature granulocytes/100 WBC (Bld) 0 % Normal 0 [facility] Comment on above: Performed By: #### T WHITLEY UMANZOR, BMP #### [facility] [address] [place], [facility]83 [employer]: Taran De Los Santos MD Lymphocytes (Bld) [#/Vol] 2.44 10*3/uL Normal 1.10-3.70 [facility] Comment on above: Performed By: #### WHITLEY CHA, BMP #### [facility] [address] [place], [place] [address] [employer]: Taran De Los Santos MD Lymphocytes/100 WBC (Bld) 40 % Normal 24-43 [facility] Comment on above: Performed By: #### WHITLEY CHA, BMP #### [facility] [address] [place], [facility]83 [employer]: Taran De Los Santos MD MCH (RBC) [Entitic mass] 30.9 pg Normal 25.2-33.5 [facility] Comment on above: Performed By: #### WHITLEY CHA, BMP #### [address] [place], [facility]83 [employer]: Taran De Los Santos MD MCHC (RBC) [Mass/Vol] 34.5 g/dL Normal 28.4-34.8 [facility] Comment on above: Performed By: #### WHITLEY CHA, BMP #### [address] [place], [place] [address] [employer]: Taran De Los Santos MD MCV (RBC) [Entitic vol] 89.5 fL Normal 82.6-102.9 [facility] Comment on above: Performed By: #### WHITLEY CHA, BMP #### [address] [place] [address] [employer]: Taran De Los Santos MD Monocytes (Bld) [#/Vol] 0.34 10*3/uL Normal 0.10-1.20 [facility] Comment on above: Performed By: #### WHITLEY CHA, BMP #### [facility] [address] [place], [place] [phone] [employer]: Taran De Los Santos MD Monocytes/100 WBC (Bld) 6 % Normal 3-12 [facility] Comment on above: Performed By: #### WHITLEY CHA, BMP #### [facility] [address] [place], [place] [address] [employer]: Taran De Los Santos MD Neutrophil (Seg) 51 % Normal 36-65 [facility] Comment on above: Performed By: #### WHITLEY CHA, BMP #### [facility] [address] [place], [facility]83 [employer]: Taran De Los Santos MD NRBC Automated 0.0 per 100 WBC Normal 0.0 [facility] Comment on above: Performed By: #### WHITLEY CHA, BMP #### [address] [place], [facility]83 [employer]: Taran De Los Santos MD Platelet mean volume (Bld) [Entitic vol] 10.8 fL Normal 8.1-13.5 [facility] Comment on above: Performed By: #### WHITLEY CHA, BMP #### [address] [place], [facility]83 [employer]: Taran De Los Santos MD Platelets (Bld) [#/Vol] 165 10*3/uL Normal 138-453 [facility] Comment on above: Performed By: #### T WHITLEY UMANZOR, BMP #### [address] [place], [place] [phone] [employer]: Taran De Los Santos MD RBC (Bld) [#/Vol] 4.95 10*6/uL Normal 3.95-5.11 [facility] Comment on above: Performed By: #### WHITLEY CHA, BMP #### [address] [place] [address] [employer]: Taran De Los Santos MD WBC (Bld) [#/Vol] 6.1 10*3/uL Normal 3.5-11.3 [facility] Comment on above: Performed By: #### T ERNA, CDP, BMP #### [facility] [address] [place] [address] [employer]: Taran De Los Santos MD CT HEAD [...] Torres Fischer MD 02/08/24 Final result Normal [facility] HCG, ,Urineon 02-07 Beta HCG ( test) Ql (U) Negative Normal NEG [facility] Comment on above: Result Comment: Spec imens with hCG levels near the threshold of the test (25 mIU/mL) may give a negative or indeterminate result. In such cases, another test should be performed with a new specimen in 48-72 hours. If early is suspected clinically in this setting, correlation with quantitative serum b-hCG level is suggested. [employer] has confirmed the use of plasma for this test. This has not been cleared or approved by the U.S. Food and Drug Administration. The FDA has determined that such clearance is not necessary. Performed By: #### U RUBEN CANELAG, UAX ####[facility] [place] [address] Lab Director: Taran De Los Santos MD Troponinon 02-08-2024 Troponin, High Sens <6 Normal 0-14 [facility] Comment on above: Result Comment: High Sensitivity Troponin values cannot be compared with other Troponin methodologies. Performed By: #### T ROPI, CDP, BMP ####[address] , [place] [id number] lab Director: Taran De Los Santos MD UA w/Reflex Cultureon 2023 Bilirubin, SemiQt,Ur Negative Normal NEG [facility] Comment on above: Performed By: #### U ROLA MERRILL, UAX ####[address] , [place] [address] lab Director: Taran De Los Santos MD Blood, Urine 3+ Abnormal NEG [facility] Comment on above: Performed By: #### U ROLA [facility], UAX ####[address] , [place] [address] lab Director: Taran De Los Santos MD Clarity (U) SLIGHTLY CLOUDY Abnormal CLEAR [facility] Comment on above: Performed By: #### U DEE CANELACG, UAX ####[address] , [place] [address] lab Director: Taran De Los Santos MD Color (U) Yellow Normal YEL [facility] Comment on above: Performed By: #### U ROLA CG, UAX ####[address] , [place] [address] lab Director: Taran De Los Santos MD Glucose Ql (U) Negative Normal NEG [facility] Comment on above: Performed By: #### U MICAO, UHCG, UAX ####[address] [place] [address] Lab Director: Taran De Los Santos MD Ketones Ql (U) Negative [facility]G [facility] Comment on above: Performed By: #### U MICAO, UHCG, UAX ####[address] , [facility]83 [facility] Director: Taran De Los Santos MD Leukocyte esterase Test strip Ql (U) MODERATE Abnormal NEG [facility] Comment on above: Performed By: #### U MICAO, UHCG, UAX ####[address] [place] [address] Lab Director: Taran De Los Santos MD Nitrite,Ur Negative Normal NEG [facility] Comment on above: Performed By: #### U MICAO, UHCG, UAX ####[address] [place] [address] Lab Director: Taran De Los Santos MD PH,Ur 6.0 Normal 5.0-9.0 [facility] Comment on above: Performed By: #### U MICAO, UHCG, UAX ####[address] , [facility]83 Lab Director: Taran De Los Santos MD Protein Ql (U) Negative Normal NEG [facility] Comment on above: Performed By: #### U MICAO, UHCG, UAX ####[address] [place] [address] Lab Director: Taran De Los Santos MD Spec. Bantam,Ur 1.025 High 1.010-1.020 [facility] Comment on above: Performed By: #### U MICAO, UHCG, UAX ####[address] , [place] [address] lab Director: Taran De Los Santos MD Urobilinogen,Ur Normal Normal 0.0-1.0 [facility] Comment on above: Performed By: #### U MICAO, UHCG, UAX ####[facility] , [place] [address] lab Director: Taran De Los Santos MD Urinalysis,Microon 4 Urine WBC's 10 TO 20 Normal 0-5 [facility] Comment on above: Result Comment: LATASHA ECTED ON 02/07 AT 1553: PREVIOUSLY REPORTED 15 TO 30 Performed By: #### U MICAO, UHCG, UAX ####[address] , [place] [address] lab Director: Taran De Los Santos MD Bacteria 2+ Abnormal NONE [facility] Comment on above: Performed By: #### U MICAO, UHCG, UAX ####[address] [place] [address] lab Director: Taran De Los Santos MD Epithelial cells LM Ql (Urine sed) 10 TO 20 Normal 0-25 [facility] Comment on above: Performed By: #### U MICAO, UHCG, UAX ####[address] , [place] [address] Lab Director: Taran De Los Santos MD Urine RBC's 2 TO 5 Normal 0-2 [facility] Comment on above: Performed By: #### U MICAO, UHCG, UAX ####[address] [place] [address] lab Director: Taran De Los Santos MD Urine WBC's 15 TO 30 Normal 0-5 [facility] Comment on above: Performed By: #### U MICAO, UHCG, UAX ####[address] [place] [address] Lab Director: Taran De Los Santos MD XR CHEST PORTABLEon 02-08-20 XR CHEST PORTABLE EXAMINATION: ONE XRAY VIEW [...] Peter Ugalde MD 02/08/24 Final result Normal [facility] [id number] 02-04-2024 SARS-CoV-2 (COVID-19) RNA AMPARO+probe Ql (Unsp spec) Detected Abnormal [facility] Comment on above: Result Comment: Rapid NAAT: [...] this assay. Fact sheet for Healthcare Providers: https://www.fda.gov/media/147062/download Fact sheet for Patients: https://www.fda.gov/media/573453/download Methodology: Isothermal Nucleic Acid Amplification Results reported to the appropriate Health Department Performed By: #### C OVRB ####[address] [place] [address] Lab Director: Taran De Los Santos MD XR CHEST [...] Peter Ugalde MD 02/04/24 Final result Normal [facility] Renard 09-23-2023 L Specimen: 24 Received: 09/24/23 Status: SOUT Req Num: [id number] Spec Type: Impression Subm Dr: NAVJOT Alford Tissues: PATHPER Procedures: PATHREVIEW Age/ Patient Sex Location Account Attending Physician Lina Alcantar / LABELL [id number] NAVJOT Alford SPEC NUM: [id number] RECD: 09/24/23 STATUS: NO REQ NUM: [id number] NITHIN: 09/23/23-[address]: NAVJOT Alford ENTERED: 09/24/[address] [facility] DR: Mitzi Wolf SPEC TYPE: Impression DEPT: CORINNA Cross ENTERED BY: [id number] RECV BY: [id number] ORDERED: PATHREVIEW ORDERED: PATHREVIEW Pathologist Review Abnormal [...] the serum iron profile as needed CPT: 49629 CBC No results available. -------- -------- Specimen: [id number] Received: 09/24/23-1341 Status: NO Ramirez Num: [id number] Spec Type: Impression Subm Dr: Rosario Escamilla, ST[employer]-C Tissues: PATHPER Procedures: PATHREVIEW -------- Patient: Lina Alcantar [id number] (Continued) -------- Signed (signature on file) Nola Payne MD 09/24/23 1431 Normal [facility] CBC with Auto Differentialon 09-10-2023 Basophils (Bld) [#/Vol] 0.09 10*3/uL [facility] [employer] Basophils/100 WBC (Bld) 1 % 0 - 2 % [facility] [employer] Eosinophils (Bld) [#/Vol] 0.27 10*3/uL [facility] Eosinophils/100 WBC (Bld) 3 % 1 - 4 % [facility] Erythrocyte distribution width (RBC) [Ratio] 12.5 % 11.8 - 14.4 % [facility] Hematocrit (Bld) [Volume fraction] 40.9 % 36.3 - 47.1 % [facility] Hemoglobin (Bld) [Mass/Vol] 13.9 g/dL 11.9 - 15.1 g/dL [facility] Immature granulocytes (Bld) [#/Vol] 0.00 10*3/uL [facility] Immature granulocytes/100 WBC (Bld) 0 % 0 [facility] Interpretation and review of laboratory results Abnormal [facility] Lymphocytes/100 WBC (Bld) 27 % 24 - 43 % [facility] Lymphocytes/100 WBC (Bld) 2.40 % [facility] MCH (RBC) [Entitic mass] 30.7 pg 25.2 - 33.5 pg [facility] MCHC (RBC) [Mass/Vol] 34.0 g/dL 28.4 - 34.8 g/dL [facility] MCV (RBC) [Entitic vol] 90.3 fL 82.6 - 102.9 fL [facility] Monocytes/100 WBC (Bld) 8 % 3 - 12 % [facility] Monocytes/100 WBC (Bld) 0.71 % [facility] [facility] [place] (Bld) [Interp] Normal [facility] Neutrophils/100 WBC (Bld) 61 % 36 - 65 % [facility] Nucleated RBC/100 WBC (Bld) [Ratio] 0.0 % 0.0 per 100 WBC [facility] Platelet, Fluorescence 73 Low [facility] Platelets (Bld) [#/Vol] See Reflexed IPF Result [facility] Platelets reticulated/100 platelets Auto (Bld) 19.5 % High 1.1 - 10.3 % [facility] RBC (Bld) [#/Vol] 4.53 10*6/uL 3.95 - 5.1 1 m/uL [facility] Segmented neutrophils/100 WBC (Bld) 5.43 % [facility] WBC other (Bld) [#/Vol] 8.9 [facility] Comprehensive Metabolic Pane renard 09-10-2023 Albumin [Mass/Vol] 4.1 g/dL 3.5 - 5.2 g/dL [facility] Albumin/Globulin [Mass ratio] 1.4 {ratio} 1.0 - 2.5 [facility] ALP [Catalytic activity/Vol] 98 U/L 35 - 104 U/L [facility] ALT [Catalytic activity/Vol] 11 U/L 5 - 33 U/L [facility] Anion gap [Moles/Vol] 10 mmol/L 9 - 17 mmol/L [facility] AST [Catalytic activity/Vol] 15 U/L NINF - 32 U/L [facility] Bilirubin [Mass/Vol] 0.2 mg/dL Low 0.3 - 1 .2 mg/dL [facility] Calcium [Mass/Vol] 9.1 mg/dL 8.6 - 10. 4 mg/dL [facility] Chloride [Moles/Vol] 103 mmol/L 98 - 10 7 mmol/L [facility] CO2 [Moles/Vol] 24 mmol/L 20 - 31 mmol/L [facility] Creatinine [Mass/Vol] 0.7 mg/dL 0.5 - 0.9 mg/dL [facility] GFR/1.73 sq M.predicted MDRD (S/P/Bld) [Vol rate/Area] - PINF [facility] Comment on above: These results [...] [Mass/Vol] 92 mg/dL 70 - 99 mg/dL [facility] Interpretation and review of laboratory results Abnormal [facility] Potassium [Moles/Vol] 3.9 mmol/L 3.7 - 5.3 mmol/L [facility] Protein [Mass/Vol] 7.1 g/dL 6.4 - 8.3 g/dL [facility] Sodium [Moles/Vol] 137 mmol/L 135 - 144 mmol/L [facility] Urea nitrogen [Mass/Vol] 15 mg/dL 6 - 20 mg/dL [facility] Urea nitrogen/Creatinine [Mass ratio] 21 mg/mg High 9 - 20 [facility] , Urineon HCG ( test) Ql (U) Negative NEGATIVE [facility] Comment on above: Specimens with hCG l evels near the threshold of the test (25 mIU/mL) may give a negative or indeterminate result. In such cases, another test should be performed with a new specimen in 48-72 hours. If early is suspected clinically in this setting, correlation with quantitative serum b-hCG level is suggested. [employer] has confirmed the use of plasma for this test. This has not been cleared or approved by the U.S. Food and Drug Administration. The FDA has determined that such clearance is not necessary. [facility] Urinalysis with Microscopico n 09-10-2023 Amorphous sediment LM Ql (Urine sed) 1+ Abnormal None [facility] Bacteria LM Ql (Urine sed) 3+ Abnormal None [facility] Bilirubin Ql (U) Negative NEGATIVE [facility] Clarity (U) SLIGHTLY CLOUDY Abnormal Clear [facility] Color (U) Yellow Yellow [facility] Epithelial cells LM.HPF (Urine sed) [#/Area] 2 TO 5 [facility] Glucose Test strip (U) [Mass/Vol] Negative NEGATIVE mg/dL [facility] Hemoglobin Auto test strip Ql (U) Negative NEGATIVE [facility] Interpretation and review of laboratory results Abnormal [facility] Ketones (U) [Mass/Vol] Negative NEGATIVE mg/dL [facility] Leukocyte esterase Test strip Ql (U) SMALL Abnormal NEGATIVE [facility] Nitrite Ql (U) Negative NEGATIVE [place] [facility] pH (U) 6.5 [pH] 5.0 - 9.0 [facility] Protein (U) [Mass/Vol] Negative NEGATIVE mg/dL [facility] RBC LM.HPF (Urine sed) [#/Area] 0 TO 2 [facility] Specific gravity (U) [Rel density] 1.025 High 1.010 - 1.020 [facility] Urobilinogen Qn (U) Normal 0.0 - 1. 0 EU/dL [facility] WBC LM.HPF (Urine sed) [#/Area] 0 TO 2 [facility] BMPon 10-23-2022 Anion gap [Moles/Vol] 10 mmol/L 9 - 17 mmol/L [facility] Calcium [Mass/Vol] 8.4 mg/dL Low 8.6 - 10. 4 mg/dL [facility] Chloride [Moles/Vol] 107 mmol/L 98 - 10 7 mmol/L [facility] CO2 [Moles/Vol] 24 mmol/L 20 - 31 mmol/L [facility] Creatinine [Mass/Vol] 0.88 mg/dL 0.50 - 0.90 mg/dL [facility] GFR/1.73 sq M.predicted MDRD (S/P/Bld) [Vol rate/Area] - PINF [facility] Comment on above: These results [...] [Mass/Vol] 95 mg/dL 70 - 99 mg/dL [facility] Potassium [Moles/Vol] 3.9 mmol/L 3.7 - 5.3 mmol/L [facility] Sodium [Moles/Vol] 141 mmol/L 135 - 144 mmol/L [facility] Urea nitrogen [Mass/Vol] 7 mg/dL 6 - 20 mg/dL [facility] Urea nitrogen/Creatinine [Mass ratio] 8 mg/mg Low 9 - 20 [facility] C-Reactive Proteinon 023 CRP High sensitivity method [Mass/Vol] 34 mg/L High 0.0 - 5.0 mg/L [facility] CBC with Auto Differentialon 10-23-2022 Basophils (Bld) [#/Vol] [facility] Basophils/100 WBC (Bld) 0 % 0 - 2 % [facility] Eosinophils (Bld) [#/Vol] 0.07 10*3/uL [facility] Eosinophils/100 WBC (Bld) 1 % 1 - 4 % [facility] Erythrocyte distribution width (RBC) [Ratio] 13.0 % 11.8 - 14.4 % [facility] Hematocrit (Bld) [Volume fraction] 39.0 % 36.3 - 47.1 % [facility] Hemoglobin (Bld) [Mass/Vol] 13.1 g/dL 11.9 - 15.1 g/dL [facility] Immature granulocytes (Bld) [#/Vol] [facility] Immature granulocytes/100 WBC (Bld) 0 % 0 [facility] Interpretation and review of laboratory results Abnormal [facility] Lymphocytes/100 WBC (Bld) 17 % Low 24 - 43 % [facility] Lymphocytes/100 WBC (Bld) 1.06 % Low [facility] MCH (RBC) [Entitic mass] 31.2 pg 25.2 - 33.5 pg [facility] MCHC (RBC) [Mass/Vol] 33.6 g/dL 28.4 - 34.8 g/dL [facility] MCV (RBC) [Entitic vol] 92.9 fL 82.6 - 102.9 fL [facility] Monocytes/100 WBC (Bld) 13 % High 3 - 12 % [facility] Monocytes/100 WBC (Bld) 0.82 % [facility] Neutrophils/100 WBC (Bld) 69 % High 36 - 65 % [facility] NRBC Automated 0.0 0.0 per 100 WBC [facility] Platelets (Bld) [#/Vol] See Reflexed IPF Result [facility] RBC (Bld) [#/Vol] 4.20 10*6/uL 3.95 - 5.1 1 m/uL [facility] Segmented neutrophils/100 WBC (Bld) 4.40 % [facility] WBC other (Bld) [#/Vol] 6.4 [facility] COVID-19, Rapidon 10-23-2022 SARS-CoV-2 (COVID-19) RdRp gene AMPARO+probe Ql (Resp) Not detected Not Detected [facility] Comment on above: Rapid NAAT: [...] management decisions. Fact sheet for Healthcare Providers: https://www.fda.gov/media/560015/download Fact sheet for Patients: https://www.fda.gov/media/181755/download Methodology: Isothermal Nucleic Acid Amplification Specimen Description .NASOPHARYNGEAL SWAB [facility] CT Head W/O Contraston 10-23 No acute [...] of the visualized skull or soft tissues. [facility] Job[facility] - 10/23/2022 EXAMINATION: [...] acute intracranial abnormality. Paranasal sinus inflammatory disease [employer] Work Phone: Radiology Study observation (narrative) [employer] Work Phone: CT Head W/O ContrastOrdered By: Joby Holt on 10-23-2022 [employer] Work Phone: Immature Platelet Fractionon 10-23-2022 Interpretation and review of laboratory results Abnormal [facility] Platelet, Fluorescence [address] [facility] Platelets reticulated/100 platelets Auto (Bld) 5.2 % 1.1 - 10.3 % [facility] Mononucleosis Screenon 10-23 Heterophile Ab IA Ql (Bld) Negative NEGATIVE [facility] No Panel Informationon 06-01 -2023 Interpretation and review of laboratory results Abnormal [facility] Rapid influenza A/B antigens on 10-23-2022 FLUAV Ag Ql (Unsp spec) Negative NEGATIVE [facility] Comment on above: for Influenza A Anti gen FLUBV Ag Ql (Unsp spec) Negative NEGATIVE [facility] Comment on above: for Influenza B Anti gen. [facility] Sedimentation Rateon 023 ESR (Bld) [Velocity] 11 mm/h [facility] XR CHEST PORTABLEon 10-24-19 No acute process. Possible mild bronchitis. [facility] EXAMINATION: ONE XRAY VIEW OF THE [...] are without acute process. Mild DJD spine. [facility] Damian Keys MD - 10/23/2022 EXAMINATION: [...] IMPRESSION: No acute process. Possible mild bronchitis. [facility] [employer] Work Phone: Radiology Study observation (narrative) [facility] Work Phone: XR CHEST PORTABLEOrdered By: Damian Keys on 10-23-2022 [facility] Work Phone: COVID-19, Rapidon 10-22-2022 SARS-CoV-2 (COVID-19) RdRp gene AMPARO+probe Ql (Resp) Not detected Not Detected [facility] Comment on above: Rapid NAAT: [...] management decisions. Fact sheet for Healthcare Providers: https://www.fda.gov/media/131950/download Fact sheet for Patients: https://www.fda.gov/media/469522/download Methodology: Isothermal Nucleic Acid Amplification Specimen Description .NASOPHARYNGEAL SWAB [facility] GROUP A STREP CULTUREon 06-26 S. pyogenes Ag Ql (Unsp spec) Culture Observations: NEGATIVE FOR GROUP A STREPTOCOCCUS. Normal [facility] Comment on above: Performed By: #### C BC #### [facility] Laboratory [address] [place] [address] Dr. Sofia Payne STREPT SCREENon 07-19-2022 STREP SCREEN A Negative Normal NEGATIVE [facility] Comment on above: Performed By: #### C BC #### [facility] Laboratory [address] [place] [address] Dr. Sofia Payne Covid-19 PCR (CVDTB)on 04-25 SARS-CoV-2 (COVID-19) RNA AMPARO+probe Ql (Unsp spec) Not detected Normal NOT DETECTED [facility] Comment on above: Result Comment: This test is not yet approved or cleared by the [place] FDA. When there are no FDA-approved or cleared tests available, and other criteria are met, FDA can make tests available under an emergency access mechanism called an Emergency Use Authorization (EUA). The EUA for this test is supported by the [place] of Health and Human Service's (HHS's) declaration [...] SARS-CoV-2. Performed By: #### C BC #### [facility] Laboratory [address] [place] [address] Dr. Sofia Payne INFLUENZA A AND B [facility] 05-20 [facility] SEE BELOW Normal [facility] Comment on above: Result Comment: Nega tive for Flu A protein angiten. Infection due to Flu A cannot be ruled out. Flu A angiten in the sample may be below the detection limit of the test. Performed By: #### C BC #### [facility] Laboratory [address] [place] [address] Dr. Sofia Payne [facility] SEE BELOW Normal [facility] Comment on above: Result Comment: Nega tive for Flu B protein antigen. Infection due to Flu B cannot be ruled out. Flu B antigen in the sample may be below the detection limit of the test. Performed By: #### C BC #### [facility] [address] [place] [address] Dr. Sofia Payne INFLUENZA A AG Negative Normal NEGATIVE SEE COMMENT [facility] Comment on above: Performed By: #### C BC #### [facility] [address] [place] [address] Dr. Sofia Payne INFLUENZA B AG Negative Normal NEGATIVE SEE COMMENT [facility] Comment on above: Performed By: #### C BC #### [facility] [address] [place] [address] Dr. Sofia Payne INTERNAL CONTROLS Within Normal Limits Normal Wi thin Normal Limits [facility] Comment on above: Performed By: #### C BC #### [facility] [address] [place] [address] Dr. Sofia Payne CBC AUTO DIFFon 05-01-2022 BASO # 0.0 103/ul Normal 0.0-0.1 [facility] Comment on above: Performed By: #### C BC #### [facility] Laboratory [address] [place] [address] Dr. Sofia Pyane Basophils/100 WBC (Bld) 0.4 % Normal 0.2-2.0 [facility] Comment on above: Performed By: #### C BC #### [facility] Laboratory [address] [place] [address] Dr. Sofia Payne EO # 0.2 103/ul Normal 0.0-0.7 [facility] Comment on above: Performed By: #### C BC #### [facility] [address] [place] [address] Dr. Sofia Payne Eosinophils/100 WBC (Bld) 1.6 % Normal 0.9-7.0 [facility] Comment on above: Performed By: #### C BC #### [facility] [address] [place] [address] Dr. Sofia Payne Erythrocyte distribution width (RBC) [Ratio] 12.8 % Normal 11.0-15.0 [facility] Comment on above: Performed By: #### C BC #### [facility] [address] [place] [address] Dr. Sofia Payne Hematocrit (Bld) [Volume fraction] 41.9 % Normal 36.0-48.0 [facility] Comment on above: Performed By: #### C BC #### [facility] Laboratory [address] [place] [address] Dr. Sofia Payne Hemoglobin (Bld) [Mass/Vol] 14.6 g/dL Normal 12.0-16.0 [facility] Comment on above: Performed By: #### C BC #### [facility] [address] [place] [address] Dr. Sofia Payne IG # 0.02 10e3/ul Normal 0.00-0.03 [facility] Comment on above: Performed By: #### C BC #### [facility] [address] [place] [address] Dr. Sofia Payne IG % 0.2 % Normal 0.0-0.5 [facility] Comment on above: Performed By: #### C BC #### [facility] [address] [place] [address] Dr. Sofia Payne LYMPH # 1.3 103/ul Normal 1.2-3.8 [facility] Comment on above: Performed By: #### C BC #### [facility] [address] [place] [address] Dr. Sofia Payne Lymphocytes/100 WBC (Bld) 13.8 % Critically low 20.5-60.0 [facility] Comment on above: Performed By: #### C BC #### [facility] [address] [place] [address] Dr. Sofia Payne MANUAL DIFF REQ NO Normal [facility] Comment on above: Performed By: #### C BC #### [facility] [address] [place] [address] Dr. Sofia Payne MCH (RBC) [Entitic mass] 30.3 pg Normal 26.7-34.0 [facility] Comment on above: Performed By: #### C BC #### [facility] [address] [place] [address] Dr. Sofia Payne MCHC (RBC) [Mass/Vol] 34.8 g/dL Normal 29.9-35.2 [facility] Comment on above: Performed By: #### C BC #### [facility] [address] [place] [address] Dr. Sofia Payne MCV (RBC) [Entitic vol] 86.9 fL Normal 81.0-99.0 [facility] Comment on above: Performed By: #### C BC #### [facility] [address] [place] [address] Dr. Sofia Payne MONO # 0.7 103/ul Normal 0.3-0.8 [facility] Comment on above: Performed By: #### C BC #### [facility] [address] [place] [address] Dr. Sofia Payne Monocytes/100 WBC (Bld) 7.8 % Normal 1.7-12.0 [facility] Comment on above: Performed By: #### C BC #### [facility] [address] [place] [address] Dr. Sofia Payne NEUT # 7.2 103/ul Critically high 1.4-6.5 [facility] Comment on above: Performed By: #### C BC #### [facility] [address] [place] [address] Dr. Sofia Payne Neutrophils/100 WBC (Bld) 76.2 % Critically high 43.0-75.0 [facility] Comment on above: Performed By: #### C BC #### [facility] [address] [place] [address] Dr. Sofia Payne Platelet mean volume (Bld) [Entitic vol] 11.3 fL Normal 9.5-13.5 [facility] Comment on above: Performed By: #### C BC #### [facility] [address] [place] [address] Dr. Sofia Payne PLT 166 103/ul Normal 150-450 [facility] Comment on above: Performed By: #### C BC #### [facility] [address] [place] [address] Dr. Sofia Payne RBC 4.82 106/ul Normal 4.20-5.40 [facility] Comment on above: Performed By: #### C BC #### [facility] [address] [place] [address] Dr. Sofia Payne WBC 9.4 103/ul Normal 4.0-11.0 [facility] Comment on above: Performed By: #### C BC #### [facility] [address] [place] [address] Dr. Sofia Payne Covid-19 PCR ([facility])on SARS-CoV-2 (COVID-19) RNA AMPARO+probe Ql (Unsp spec) Not detected Normal NOT DETECTED [facility] Comment on above: Result Comment: When diagnostic [...] for this test is supported by the Review [employer]st of Health and Human Service's declaration that [...] longer be used). Performed By: #### C VDTB #### [facility] [address] [place] [address] Dr. Sofia Payne ER URINE PROFILEon 2 Bilirubin Ql (U) SMALL Abnormal NEGATIVE [facility] Comment on above: Performed By: #### C BC #### [facility] [address] [place] [address] Dr. Sofia Payne Clarity (U) CLEAR Normal CLEAR [facility] Comment on above: Performed By: #### C BC #### [facility] [address] [place] [address] Dr. Sofia Payne Color (U) YELLOW Normal YELLOW [facility] Comment on above: Performed By: #### C BC #### [facility] [address] [place] [address] Dr. Sofia Payne ERUD A micrscopic examination will be performed if indicated. Normal [facility] Comment on above: Performed By: #### C BC #### [facility] [address] [place] [address] Dr. Sofia Payne Glucose Ql (U) Negative Normal NEGATIVE [facility] Comment on above: Performed By: #### C BC #### [facility] [address] [place] [address] Dr. Sofia Payne Hemoglobin Ql (U) Negative Normal NEGATIVE [facility] Comment on above: Performed By: #### C BC #### [facility] [address] [place] [address] Dr. Sofia Payne Ketones Ql (U) 15 mg/dl Abnormal NEGATIVE [facility] Comment on above: Performed By: #### C BC #### [facility] [address] [place] [address] Dr. Sofia Payne LEUKOCYTES TRACE Abnormal NEGATIVE [facility] Comment on above: Performed By: #### C BC #### [facility] [address] [place] [address] Dr. Sofia Payne Nitrite Ql (U) Negative Normal NEGATIVE [facility] Comment on above: Performed By: #### C BC #### [facility] [address] [place] [address] Dr. Sofia Payne pH (U) 5.5 [pH] Normal 5-9 [facility] Comment on above: Performed By: #### C BC #### [facility] [address] [place] [address] Dr. Sofia Payne SPEC GRAVITY >=1.030 Abnormal 1.005-<=1.025 [facility] Comment on above: Performed By: #### C BC #### [facility] [address] [place] [address] Dr. Sofia Payne UA PROTEIN Negative Normal NEGATIVE/ TRACE [facility] Comment on above: Performed By: #### C BC #### [facility] [address] [place] [address] Dr. Sofia Payne UR MICRO IND INDICATED Normal [facility] Comment on above: Performed By: #### C BC #### [facility] [address] [place] [address] Dr. Sofia Payne Urobilinogen Qn (U) 0.2 {Kristopher'U}/dL Normal 0.2 - 1. 0 [facility] Comment on above: Performed By: #### C BC #### [facility] [address] [place] [address] Dr. Sofia Payne INFLUENZA A AND B AGon 05-01 [facility] SEE BELOW Normal [facility] Comment on above: Result Comment: Nega tive for Flu A protein angiten. Infection due to Flu A cannot be ruled out. Flu A angiten in the sample may be below the detection limit of the test. Performed By: #### C BC #### [facility] [address] [place] [address] Dr. Sofia Payne INFLUBNEGH SEE BELOW Normal [facility] Comment on above: Result Comment: Nega tive for Flu B protein antigen. Infection due to Flu B cannot be ruled out. Flu B antigen in the sample may be below the detection limit of the test. Performed By: #### C BC #### [facility] [address] [place] [address] Dr. Sofia Payne INFLUENZA A AG Negative Normal NEGATIVE SEE COMMENT [facility] Comment on above: Performed By: #### C BC #### [facility] [facility] [address] [place] [address] Dr. Sofia Payne INFLUENZA B AG Negative Normal NEGATIVE SEE COMMENT [facility] Comment on above: Performed By: #### C BC #### [facility] [address] [place] [address] Dr. Sofia Payne INTERNAL CONTROLS Within Normal Limits Normal Wi thin Normal Limits [facility] Comment on above: Performed By: #### C BC #### [facility] [address] [place] [address] Dr. Sofia Payne URon 05-01-2022 , QUAL Negative Normal NEGATIVE [facility] Comment on above: Performed By: #### C BC #### [facility] [address] [place] [address] Dr. Sofia Payne PROF CHEM 8 (BAS METB)on Anion gap [Moles/Vol] 8.7 mmol/L Normal [facility] Comment on above: Performed By: #### C BC #### [facility] [address] [place] [address] Dr. Sofia Payne Calcium [Mass/Vol] 8.5 mg/dL Normal 8.5-10.1 [facility] Comment on above: Performed By: #### C BC #### [facility] [address] [address] [address] Sofia Payne Chloride [Moles/Vol] 103 mmol/L Normal 98-107 [facility] Comment on above: Performed By: #### C BC #### [facility] [address] [address] [address] Sofia Payne CO2 [Moles/Vol] 27.7 mmol/L Normal 21.0-32.0 [facility] Comment on above: Performed By: #### C BC #### [facility] [address] [place] [address] Dr. Sofia Payne Creatinine [Mass/Vol] 0.80 mg/dL Normal 0.55-1.02 [facility] Comment on above: Performed By: #### C BC #### [facility] [address] [place] [address] Dr. Sofia Payne EGFR-AF GUYANESE >60 Normal >=60 [facility] Comment on above: Performed By: #### C BC #### [facility] [address] [place] [address] Dr. Sofia Payne EGFR-NON AF GUYANESE >60 Normal >=60 [facility] Comment on above: Performed By: #### C BC #### [facility] [address] [place] [address] Dr. Sofia Payne Glucose [Mass/Vol] 89 mg/dL Normal 74-106 [facility] Comment on above: Performed By: #### C BC #### [facility] [address] [place] [address] Dr. Sofia Payne Potassium [Moles/Vol] 3.9 mmol/L Normal 3.5-5.1 [facility] Comment on above: Performed By: #### C BC #### [facility] [address] [place] [address] Dr. Sofia Payne Sodium [Moles/Vol] 136 mmol/L Normal 136-145 [facility] Comment on above: Performed By: #### C BC #### [facility] [address] [place] [address] Dr. Sofia Payne Urea nitrogen [Mass/Vol] 8.0 mg/dL Normal 7.0-18.0 [facility] Comment on above: Performed By: #### C BC #### [facility] [address] [place] [address] Dr. Sofia Payne Urea nitrogen/Creatinine [Mass ratio] 10.0 mg/mg Normal [facility] Comment on above: Performed By: #### C BC #### [facility] [address] [place] [address] Dr. Sofia Payne URINE MICROSCOPIC ONLYon BACTERIA NONE SEEN Normal NONE SEEN [facility] Comment on above: Performed By: #### C BC #### [facility] [address] [place] [address] Dr. Sofia Payne Bacteria identified Cx Nom (U) NOT INDICATED Normal [facility] Comment on above: Performed By: #### C BC #### [facility] [address] [place] [address] Dr. Sofia Payne CAST NONE SEEN Normal NONE SEEN [facility] Comment on above: Performed By: #### C BC #### [facility] [address] [place] [address] Dr. Sofia Payne Crystals LM Nom (Urine sed) NONE SEEN Normal NONE SEEN [facility] Comment on above: Performed By: #### C BC #### [facility] [address] [place] [address] Dr. Sofia Payne Epithelial cells LM Ql (Urine sed) MANY Abnormal NONE SEEN /RARE [facility] Comment on above: Performed By: #### C BC #### [facility] [address] [place] [address] Dr. Sofia Payne MUCOUS TRACE Abnormal NONE SEEN [facility] Comment on above: Performed By: #### C BC #### [facility] [address] [place] [address] Dr. Sofia Payne RBC NONE SEEN Abnormal 0-2 [facility] Comment on above: Performed By: #### C BC #### [facility] [address] [place] [address] Dr. Sofia Payne WBC 2-5 Abnormal NONE SEEN [facility] Comment on above: Performed By: #### C BC #### [facility] [address] [place] [address] Dr. Sofia Payne NEFTALI by IFAon 04-25-2022 Antinuclear Antibodies, IFA Negative Normal [facility] Comment on above: Result Comment: Nega tive <1:80 Borderline 1:80 Positive >1:80 ICAP nomenclature: AC-0 For more information about Hep-2 cell patterns use ANApatterns.org, the official website for the International Consensus on Antinuclear Antibody (NEFTALI) Patterns (ICAP). Performed By: #### C BC #### [facility] [address] [place] [address] Dr. Sofia Payne ANTISTREPTOLYSIN O AB (ASO)o n 04-24-2022 Antistreptolysin O Ab 65.9 IU/mL Normal 0.0-200.0 [facility] Comment on above: Performed By: #### C BC #### [facility] [address] [place] [address] Dr. Sofia Payne RHEUMATOID FACTORon 04-24-20 RA Latex Turbid. <10.0 Normal <14.0 [facility] Comment on above: Performed By: #### C BC #### [facility] [address] [place] [address] Dr. Sofia Payne CBC AUTO DIFFon 04-23-2022 BASO # 0.0 103/ul Normal 0.0-0.1 [facility] Comment on above: Performed By: #### C BC #### [facility] [address] [place] [address] Dr. Sofia Payne Basophils/100 WBC (Bld) 0.7 % Normal 0.2-2.0 [facility] Comment on above: Performed By: #### C BC #### [facility] [address] [place] [address] Dr. Sofia Payne EO # 0.1 103/ul Normal 0.0-0.7 [facility] Comment on above: Performed By: #### C BC #### [facility] [address] [place] [address] Dr. Sofia Payne Eosinophils/100 WBC (Bld) 3.3 % Normal 0.9-7.0 [facility] Comment on above: Performed By: #### C BC #### [facility] [address] [place] [address] Dr. Sofia Payne Erythrocyte distribution width (RBC) [Ratio] 12.5 % Normal 11.0-15.0 [facility] Comment on above: Performed By: #### C BC #### [facility] [address] [place] [address] Dr. Sofia Payne Hematocrit (Bld) [Volume fraction] 40.9 % Normal 36.0-48.0 [facility] Comment on above: Performed By: #### C BC #### [facility] [address] [place] [address] Dr. Sofia Payne Hemoglobin (Bld) [Mass/Vol] 14.4 g/dL Normal 12.0-16.0 [facility] Comment on above: Performed By: #### C BC #### [facility] [address] [place] [address] Dr. Sofia Payne IG # 0.01 10e3/ul Normal 0.00-0.03 [facility] Comment on above: Performed By: #### C BC #### [facility] [address] [place] [address] Dr. Sofia Payne IG % 0.2 % Normal 0.0-0.5 [facility] Comment on above: Performed By: #### C BC #### [facility] [address] [place] [address] Dr. Sofia Payne LYMPH # 1.6 103/ul Normal 1.2-3.8 [facility] Comment on above: Performed By: #### C BC #### [facility] [address] [place] [address] Dr. Sofia Payne Lymphocytes/100 WBC (Bld) 36.3 % Normal 20.5-60.0 [facility] Comment on above: Performed By: #### C BC #### [facility] [address] [place] [address] Dr. Sofia Payne MANUAL DIFF REQ NO Normal [facility] Comment on above: Performed By: #### C BC #### [facility] [address] [address] [address] Sofia Payne MCH (RBC) [Entitic mass] 30.2 pg Normal 26.7-34.0 [facility] Comment on above: Performed By: #### C BC #### [facility] [address] [address] [address] Sofia Payne MCHC (RBC) [Mass/Vol] 35.2 g/dL Normal 29.9-35.2 [facility] Comment on above: Performed By: #### C BC #### [facility] [address] [address] [address] Sofia Payne MCV (RBC) [Entitic vol] 85.7 fL Normal 81.0-99.0 [facility] Comment on above: Performed By: #### C BC #### [facility] [address] [place] [address] Dr. Sofia Payne MONO # 0.3 103/ul Normal 0.3-0.8 [facility] Comment on above: Performed By: #### C BC #### [facility] [address] [place] [address] Dr. Sofia Payne Monocytes/100 WBC (Bld) 8.0 % Normal 1.7-12.0 [facility] Comment on above: Performed By: #### C BC #### [facility] [address] [place] [address] Dr. Sofia Payne NEUT # 2.2 103/ul Normal 1.4-6.5 [facility] Comment on above: Performed By: #### C BC #### [facility] [address] [place] [address] Dr. Sofia Payne Neutrophils/100 WBC (Bld) 51.5 % Normal 43.0-75.0 [facility] Comment on above: Performed By: #### C BC #### [facility] [address] [place] [address] Dr. Sofia Payne Platelet mean volume (Bld) [Entitic vol] 11.5 fL Normal 9.5-13.5 [facility] Comment on above: Performed By: #### C BC #### [facility] [address] [place] [address] Dr. Sofia Payne PLT 121 103/ul Critically low 150-450 [facility] Comment on above: Performed By: #### C BC #### [facility] [address] [place] [address] Dr. Sofia Payne RBC 4.77 106/ul Normal 4.20-5.40 [facility] Comment on above: Performed By: #### C BC #### [facility] [address] [place] [address] Dr. Sofia Payne WBC 4.3 103/ul Normal 4.0-11.0 [facility] Comment on above: Performed By: #### C BC #### [facility] [address] [place] [address] Dr. Sofia Payne CRPon 04-23-2022 CRP [Mass/Vol] mg/L Normal <=1.0 [facility] Comment on above: Performed By: #### C RP, CMP, TSH, URIC #### [facility] [address] [place] [address] Dr. Sofia Payne FREE T4on 04-23-2022 Free T4 [Mass/Vol] 1.01 ng/dL Normal 0.76-1.46 [facility] Comment on above: Performed By: #### F T4 #### [facility] [address] [place] [address] Dr. Sofia Payne PROF 14(COMP METB)on 022 Albumin [Mass/Vol] 3.7 g/dL Normal 3.4-5.0 [facility] Comment on above: Performed By: #### C RP, CMP, TSH, URIC #### [facility] [address] [place] [address] Dr. Sofia Payne Albumin/Globulin [Mass ratio] 1.1 {ratio} Normal [facility] Comment on above: Performed By: #### C RP, CMP, TSH, URIC #### [facility] [address] [place] [address] Dr. Sofia Payne ALP [Catalytic activity/Vol] 94 U/L Normal 46-116 [facility] Comment on above: Performed By: #### C RP, CMP, TSH, URIC #### [facility] [address] [address] [address] Sofia Payne ALT [Catalytic activity/Vol] 14 U/L Normal 14-59 [facility] Comment on above: Performed By: #### C RP, CMP, TSH, URIC #### [facility] [address] [place] [address] Dr. Sofia Payne Anion gap [Moles/Vol] 13.5 mmol/L Normal [facility] Comment on above: Performed By: #### C RP, CMP, TSH, URIC #### [facility] [address] [place] [address] Dr. Sofai Payne AST [Catalytic activity/Vol] 18 U/L Normal 15-37 [facility] Comment on above: Performed By: #### C RP, CMP, TSH, URIC #### [facility] [address] [place] [address] Dr. Sofia Payne Bilirubin [Mass/Vol] 0.3 mg/dL Normal 0.2-1.0 [facility] Comment on above: Performed By: #### C RP, CMP, TSH, URIC #### [facility] [address] [place] [address] Dr. Sofia Payne Calcium [Mass/Vol] 8.5 mg/dL Normal 8.5-10.1 [facility] Comment on above: Performed By: #### C RP, CMP, TSH, URIC #### [facility] [address] [place] [address] Dr. Sofia Payne Chloride [Moles/Vol] 104 mmol/L Normal 98-107 [facility] Comment on above: Performed By: #### C RP, CMP, TSH, URIC #### [facility] [address] [place] [address] Dr. Sofia Payne CO2 [Moles/Vol] 23.7 mmol/L Normal 21.0-32.0 [facility] Comment on above: Performed By: #### C RP, CMP, TSH, URIC #### [facility] [address] [address] [address] Sofia Payne Creatinine [Mass/Vol] 0.61 mg/dL Normal 0.55-1.02 [facility] Comment on above: Performed By: #### C RP, CMP, TSH, URIC #### [facility] [address] [address] [address] Sofia Payne EGFR-AF GUYANESE >60 Normal >=60 [facility] Comment on above: Performed By: #### C RP, CMP, TSH, URIC #### [facility] [address] [address] [address] Sofia Payne EGFR-NON AF GUYANESE >60 Normal >=60 [facility] Comment on above: Performed By: #### C RP, CMP, TSH, URIC #### [facility] [address] [address] [address] Sofia Payne Globulin (S) [Mass/Vol] 3.5 g/dL Normal [facility] Comment on above: Performed By: #### C RP, CMP, TSH, URIC #### [facility] [address] [address] [address] Sofia Payne Glucose [Mass/Vol] 86 mg/dL Normal 74-106 [facility] Comment on above: Performed By: #### C RP, CMP, TSH, URIC #### [facility] [address] [address] [address] Sofia Payne Potassium [Moles/Vol] 4.1 mmol/L Normal 3.5-5.1 [facility] Comment on above: Performed By: #### C RP, CMP, TSH, URIC #### [facility] [address] [address] [address] Sofia Payne Protein [Mass/Vol] 7.2 g/dL Normal 6.4-8.2 [facility] Comment on above: Performed By: #### C RP, CMP, TSH, URIC #### [facility] [address] [address] [address] Sofia Payne Sodium [Moles/Vol] 137 mmol/L Normal 136-145 [facility] Comment on above: Performed By: #### C RP, CMP, TSH, URIC #### [facility] [address] [place] [address] Dr. Sofia Payne Urea nitrogen [Mass/Vol] 6.0 mg/dL Critically low 7.0-18.0 [facility] Comment on above: Performed By: #### C RP, CMP, TSH, URIC #### [facility] [address] [place] [address] Dr. Sofia Payne Urea nitrogen/Creatinine [Mass ratio] 9.8 mg/mg Normal [facility] Comment on above: Performed By: #### C RP, CMP, TSH, URIC #### [facility] [address] [place] [address] Dr. Sofia Payne [facility] SED RATE 10 mm/hr Normal <=20 [facility] Comment on above: Performed By: #### C BC #### [facility] [address] [place] [address] Dr. Sofia Payne TSHon 04-23-2022 TSH 2.555 uIU/mL Normal 0.358-3.740 [facility] Comment on above: Performed By: #### C RP, CMP, TSH, URIC #### [facility] [address] [place] [address] Dr. Sofia Payne URIC ACID SERUMon 04-23-2022 Urate [Mass/Vol] 4.2 mg/dL Normal 2.6-6.0 [facility] Comment on above: Performed By: #### C RP, CMP, TSH, URIC #### [facility] [address] [place] [address] Dr. Sfoia Payne CBC AUTO DIFFon 12-30-2021 BASO # 0.0 103/ul Normal 0.0-0.1 [facility] Comment on above: Performed By: #### C BC #### [facility] [address] [place] [address] Dr. Sofia Payne Basophils/100 WBC (Bld) 0.5 % Normal 0.2-2.0 [facility] Comment on above: Performed By: #### C BC #### [facility] [address] [place] [address] Dr. Sofia Payne EO # 0.1 103/ul Normal 0.0-0.7 [facility] Comment on above: Performed By: #### C BC #### [facility] [address] [place] [address] Dr. Sofia Payne Eosinophils/100 WBC (Bld) 3.1 % Normal 0.9-7.0 [facility] Comment on above: Performed By: #### C BC #### [facility] [address] [place] [address] Dr. Sofia Payne Erythrocyte distribution width (RBC) [Ratio] 13.1 % Normal 11.0-15.0 [facility] Comment on above: Performed By: #### C BC #### [facility] [address] [place] [address] Dr. Sofia Payne Hematocrit (Bld) [Volume fraction] 43.4 % Normal 36.0-48.0 [facility] Comment on above: Performed By: #### C BC #### [facility] [address] [place] [address] Dr. Sofia Payne Hemoglobin (Bld) [Mass/Vol] 14.8 g/dL Normal 12.0-16.0 [facility] Comment on above: Performed By: #### C BC #### [facility] [address] [place] [address] Dr. Sofia Payne IG # 0.01 10e3/ul Normal 0.00-0.03 [facility] Comment on above: Performed By: #### C BC #### [facility] [address] [place] [address] Dr. Sofia Payne IG % 0.3 % Normal 0.0-0.5 [facility] Comment on above: Performed By: #### C BC #### [facility] [address] [place] [address] Dr. Sofia Payne LYMPH # 1.6 103/ul Normal 1.2-3.8 [facility] Comment on above: Performed By: #### C BC #### [facility] [address] [place] [address] Dr. Sofia Payne Lymphocytes/100 WBC (Bld) 41.2 % Normal 20.5-60.0 [facility] Comment on above: Performed By: #### C BC #### [facility] [address] [place] [address] Dr. Sofia Payne MANUAL DIFF REQ NO Normal [facility] Comment on above: Performed By: #### C BC #### [facility] [address] [place] [address] Dr. Sofia Payne MCH (RBC) [Entitic mass] 30.0 pg Normal 26.7-34.0 [facility] Comment on above: Performed By: #### C BC #### [facility] [address] [place] [address] Dr. Sofia Payne MCHC (RBC) [Mass/Vol] 34.1 g/dL Normal 29.9-35.2 [facility] Comment on above: Performed By: #### C BC #### [facility] [address] [place] [address] Dr. Sofia Payne MCV (RBC) [Entitic vol] 88.0 fL Normal 81.0-99.0 [facility] Comment on above: Performed By: #### C BC #### [facility] [address] [place] [address] Dr. Sofia Payne MONO # 0.4 103/ul Normal 0.3-0.8 [facility] Comment on above: Performed By: #### C BC #### [facility] [address] [place] [address] Dr. Sofia Payne Monocytes/100 WBC (Bld) 9.8 % Normal 1.7-12.0 [facility] Comment on above: Performed By: #### C BC #### [facility] [address] [place] [address] Dr. Sofia Payne NEUT # 1.8 103/ul Normal 1.4-6.5 [facility] Comment on above: Performed By: #### C BC #### [facility] [address] [address] [address] Sofia Payne Neutrophils/100 WBC (Bld) 45.1 % Normal 43.0-75.0 [facility] Comment on above: Performed By: #### C BC #### [facility] [address] [address] [address] Sofia Payne Platelet mean volume (Bld) [Entitic vol] 11.9 fL Normal 9.5-13.5 [facility] Comment on above: Performed By: #### C BC #### [facility] [address] [place] [address] Dr. Sofia Payne PLT 142 103/ul Critically low 150-450 [facility] Comment on above: Performed By: #### C BC #### [facility] [address] [place] [address] Dr. Sofia Payne RBC 4.93 106/ul Normal 4.20-5.40 [facility] Comment on above: Performed By: #### C BC #### [facility] [address] [place] [address] Dr. Sofia Payne WBC 3.9 103/ul Critically low 4.0-11.0 [facility] Comment on above: Performed By: #### C BC #### [facility] [address] [place] [address] Dr. Sofia Payne CULTURE URINEon 12-30-2021 CULTURE URINE Culture Observations : HEAVY GROWTH OF MIXED GENITAL SHARAN. NO POTENTIAL PATHOGENS SEEN. Normal [facility] Comment on above: Performed By: #### C BC #### [facility] [address] [place] [address] Dr. Sofia Payne FREE T4on 12-30-2021 Free T4 [Mass/Vol] 0.98 ng/dL Normal 0.76-1.46 [facility] Comment on above: Performed By: #### C BC #### [facility] [address] [place] [address] Dr. Sofia Payne MONOon 12-30-2021 Monocytes (Bld) [#/Vol] Positive Abnormal NEGATIVE [facility] Comment on above: Result Comment: Prev iously reported as: NEGATIVE On 12/30/2021 19:06 By JAW Performed By: #### M CHERYL #### [facility] [address] [place] [address] Dr. Sofia Payne PROF 14(COMP METB)on 022 Albumin [Mass/Vol] 4.1 g/dL Normal 3.4-5.0 [facility] Comment on above: Performed By: #### C BC #### [facility] [address] [place] [address] Dr. Sofia Payne Albumin/Globulin [Mass ratio] 1.2 {ratio} Normal [facility] Comment on above: Performed By: #### C BC #### [facility] [address] [place] [address] Dr. Sofia Payne ALP [Catalytic activity/Vol] 103 U/L Normal 46-116 [facility] Comment on above: Performed By: #### C BC #### [facility] [address] [place] [address] Dr. Sofia Payne ALT [Catalytic activity/Vol] 88 U/L Critically high 14-59 [facility] Comment on above: Performed By: #### C BC #### [facility] [address] [place] [address] Dr. Sofia Payne Anion gap [Moles/Vol] 14.0 mmol/L Normal [facility] Comment on above: Performed By: #### C BC #### [facility] [address] [place] [address] Dr. Sofia Payne AST [Catalytic activity/Vol] 24 U/L Normal 15-37 [facility] Comment on above: Performed By: #### C BC #### [facility] [address] [place] [address] Dr. Sofia Payne Bilirubin [Mass/Vol] 0.3 mg/dL Normal 0.2-1.0 [facility] Comment on above: Performed By: #### C BC #### [facility] [address] [place] [address] Dr. Sofia Payne Calcium [Mass/Vol] 9.2 mg/dL Normal 8.5-10.1 [facility] Comment on above: Performed By: #### C BC #### [facility] [address] [place] [address] Dr. Sofia Payne Chloride [Moles/Vol] 105 mmol/L Normal 98-107 [facility] Comment on above: Performed By: #### C BC #### [facility] [address] [place] [address] Dr. Sofia Payne CO2 [Moles/Vol] 25.4 mmol/L Normal 21.0-32.0 [facility] Comment on above: Performed By: #### C BC #### [facility] [address] [place] [address] Dr. Sofia Payne Creatinine [Mass/Vol] 0.74 mg/dL Normal 0.55-1.02 [facility] Comment on above: Performed By: #### C BC #### [facility] [address] [place] [address] Dr. Sofia Payne EGFR-AF GUYANESE >60 Normal >=60 [facility] Comment on above: Performed By: #### C BC #### [facility] [address] [place] [address] Dr. Sofia Payne EGFR-NON AF GUYANESE >60 Normal >=60 [facility] Comment on above: Performed By: #### C BC #### [facility] [address] [place] [address] Dr. Sofia Payne Globulin (S) [Mass/Vol] 3.3 g/dL Normal [facility] Comment on above: Performed By: #### C BC #### [facility] [address] [place] [address] Dr. Sofia Payne Glucose [Mass/Vol] 96 mg/dL Normal 74-106 [facility] Comment on above: Performed By: #### C BC #### [facility] [address] [place] [address] Dr. Sofia Payne Potassium [Moles/Vol] 4.4 mmol/L Normal 3.5-5.1 [facility] Comment on above: Performed By: #### C BC #### [facility] [address] [place] [address] Dr. Sofia Payne Protein [Mass/Vol] 7.4 g/dL Normal 6.4-8.2 [facility] Comment on above: Performed By: #### C BC #### [facility] [address] [place] [address] Dr. Sofia Payne Sodium [Moles/Vol] 140 mmol/L Normal 136-145 [facility] Comment on above: Performed By: #### C BC #### [facility] [address] [place] [address] Dr. Sofia Payne Urea nitrogen [Mass/Vol] 10.0 mg/dL Normal 7.0-18.0 [facility] Comment on above: Performed By: #### C BC #### [facility] [address] [place] [address] Dr. Sofia Payne Urea nitrogen/Creatinine [Mass ratio] 13.5 mg/mg Normal [facility] Comment on above: Performed By: #### C BC #### [facility] [address] [place] [address] Dr. Sofia Payne TSHon 12-30-2021 TSH 1.676 uIU/mL Normal 0.358-3.740 [facility] Comment on above: Performed By: #### C BC #### [facility] [address] [place] [address] Dr. Sofia Payne UA RANDOM W/MICROSCOPICon AMORPHOUS CRYSTALS FEW Normal [facility] Comment on above: Performed By: #### C BC #### [facility] [address] [place] [address] Dr. Sofia Payne BACTERIA MODERATE Abnormal NONE SEEN [facility] Comment on above: Performed By: #### C BC #### [facility] [address] [place] [address] Dr. Sofia Payne Bilirubin Ql (U) Negative Normal NEGATIVE [facility] Comment on above: Performed By: #### C BC #### [facility] [address] [place] [address] Dr. Sofia Payne CAST NONE SEEN Normal NONE SEEN [facility] Comment on above: Performed By: #### C BC #### [facility] [address] [place] [address] Dr. Sofia Payne Clarity (U) SL CLOUDY Abnormal CLEAR [facility] Comment on above: Performed By: #### C BC #### [facility] [address] [place] [address] Dr. Sofia Payne Color (U) YELLOW Normal YELLOW [facility] Comment on above: Performed By: #### C BC #### [facility] [address] [place] [address] Dr. Sofia Payne Crystals LM Nom (Urine sed) SEEN Abnormal NONE SEEN [facility] Comment on above: Performed By: #### C BC #### [facility] [address] [place] [address] Dr. Sofia Payne Epithelial cells LM Ql (Urine sed) FEW Abnormal NONE SEEN /RARE [facility] Comment on above: Performed By: #### C BC #### [facility] [address] [place] [address] Dr. Sofia Payne Glucose Ql (U) Negative Normal NEGATIVE [facility] Comment on above: Performed By: #### C BC #### [facility] [address] [place] [address] Dr. Sofia Payne Hemoglobin Ql (U) MODERATE Abnormal NEGATIVE [facility] Comment on above: Performed By: #### C BC #### [facility] [address] [place] [address] Dr. Sofia Payne Ketones Ql (U) Negative Normal NEGATIVE [facility] Comment on above: Performed By: #### C BC #### [facility] [address] [place] [address] Dr. Sofia Payne LEUKOCYTES SMALL Abnormal NEGATIVE [facility] Comment on above: Performed By: #### C BC #### [facility] [address] [place] [address] Dr. Sofia Payne MUCOUS NONE SEEN Normal NONE SEEN [facility] Comment on above: Performed By: #### C BC #### [facility] [address] [place] [address] Dr. Sofia Payne Nitrite Ql (U) Negative Normal NEGATIVE [facility] Comment on above: Performed By: #### C BC #### [facility] [address] [place] [address] Dr. Sofia Payne pH (U) 6.0 [pH] Normal 5-9 [facility] Comment on above: Performed By: #### C BC #### [facility] [address] [place] [address] Dr. Sofia Payne RBC 10-20 Abnormal 0-2 [facility] Comment on above: Performed By: #### C BC #### [facility] [address] [place] [address] Dr. Sofia Payne SPEC GRAVITY >=1.030 Abnormal 1.005-<=1.025 [facility] Comment on above: Performed By: #### C BC #### [facility] [address] [place] [address] Dr. Sofia Payne UA PROTEIN Negative Normal NEGATIVE/ TRACE [facility] Comment on above: Performed By: #### C BC #### [facility] [address] [place] [address] Dr. Sofia Payne Urobilinogen Qn (U) 0.2 {Kristopher'U}/dL Normal 0.2 - 1. 0 [facility] Comment on above: Performed By: #### C BC #### [facility] [address] [place] [address] Dr. Sofia Payne WBC 5-10 Abnormal NONE SEEN [facility] Comment on above: Performed By: #### C BC #### [facility] [address] [place] [address] Dr. Sofia Payne CBC W MANUAL DIFFon 12-25-19 22 ATYPICAL LYMPH # Normal [facility] Comment on above: Performed By: #### C BC #### [facility] [address] [place] [address] Dr. Sofia Payne ATYPICAL LYMPH % Normal [facility] Comment on above: Performed By: #### C BC #### [facility] [address] [place] [address] Dr. Sofia Payne BAND # 0.1 103/ul Normal 0.0-0.3 [facility] Comment on above: Performed By: #### C BC #### [facility] [address] [place] [address] Dr. Sofia Payne BAND % 2 % Normal 0-5 [facility] Comment on above: Performed By: #### C BC #### [facility] [address] [place] [address] Dr. Sofia Payne BASOM # 0.00 103/ul Normal 0.00-0.10 [facility] Comment on above: Performed By: #### C BC #### [facility] [address] [place] [address] Dr. Sofia Payne BASOM % 0.0 % Critically low 0.2-2.0 [facility] Comment on above: Performed By: #### C BC #### [facility] [address] [place] [address] Dr. Sofia Payne BLAST # Normal [facility] Comment on above: Performed By: #### C BC #### [facility] [address] [place] [address] Dr. Sofia Payne BLAST % Normal [facility] Comment on above: Performed By: #### C BC #### [facility] [address] [place] [address] Dr. Sofia Payne CORRECTED WBC Normal 4.0-11.0 [facility] Comment on above: Performed By: #### C BC #### [facility] [address] [place] [address] Dr. Sofia Payne EOS # 0.00 103/ul Normal 0.00-0.70 [facility] Comment on above: Performed By: #### C BC #### [facility] [address] [place] [address] Dr. Sofia Payne EOS% 0.0 % Critically low 0.9-7.0 [facility] Comment on above: Performed By: #### C BC #### [facility] [address] [place] [address] Dr. Sofia Payne HCT 40.9 % Normal 36.0-48.0 [facility] Comment on above: Performed By: #### C BC #### [facility] [address] [address] [address] Sofia Payne HGB 13.8 g/dl Normal 12.0-16.0 [facility] Comment on above: Performed By: #### C BC #### [facility] [address] [address] [address] Sofia Payne LYMPHM # 0.43 103/ul Critically low 1.20-3.80 [facility] Comment on above: Performed By: #### C BC #### [facility] [address] [place] [address] Dr. Sofia Payne LYMPHM% 15.0 % Critically low 20.5-60.0 [facility] Comment on above: Performed By: #### C BC #### [facility] [address] [place] [address] Dr. Sofia Payne MCH 30.4 pg Normal 26.7-34.0 [facility] Comment on above: Performed By: #### C BC #### [facility] [address] [place] [address] Dr. Sofia Payne MCHC 33.7 g/dl Normal 29.9-35.2 [facility] Comment on above: Performed By: #### C BC #### [facility] [address] [place] [address] Dr. Sofia Payne MCV 90.1 fL Normal 81.0-99.0 [facility] Comment on above: Performed By: #### C BC #### [facility] [address] [place] [address] Dr. Sofia Payne METAMYELOCYTE # Normal [facility] Comment on above: Performed By: #### C BC #### [facility] [address] [place] [address] Dr. Sofia Payne METAMYELOCYTE % Normal [facility] Comment on above: Performed By: #### C BC #### [facility] [address] [place] [address] Dr. Sofia Payne MONOM# 0.41 103/ul Normal 0.30-0.80 [facility] Comment on above: Performed By: #### C BC #### [facility] [address] [place] [address] Dr. Sofia Payne MONOM% 14.0 % Critically high 1.7-12.0 [facility] Comment on above: Performed By: #### C BC #### [facility] [address] [place] [address] Dr. Sofia Payne MPV 11.0 fL Normal 9.5-13.5 [facility] Comment on above: Performed By: #### C BC #### [facility] [address] [place] [address] Dr. Sofia Payne MYELOCYTE # Normal [facility] Comment on above: Performed By: #### C BC #### [facility] [address] [place] [address] Dr. Sofia Payne MYELOCYTE % Normal [facility] Comment on above: Performed By: #### C BC #### [facility] [address] [place] [address] Dr. Sofia Payne NRBC Normal [facility] Comment on above: Performed By: #### C BC #### [facility] [address] [place] [address] Dr. Sofia Payne PLT 98 103/ul Critically low 150-450 [facility] Comment on above: Performed By: #### C BC #### [facility] [address] [place] [address] Dr. Sofia Payne RBC 4.54 106/ul Normal 4.20-5.40 [facility] Comment on above: Performed By: #### C BC #### [facility] [address] [place] [address] Dr. Sofia Payne RDW 13.1 % Normal 11.0-15.0 [facility] Comment on above: Performed By: #### C BC #### [facility] [address] [place] [address] Dr. Sofia Payne SEG # 2.00 103/ul Normal 1.40-6.50 [facility] Comment on above: Performed By: #### C BC #### [facility] [address] [place], [place] [address] Dr. Sofia Payne SEG % 69.0 % Normal 43.0-75.0 [facility] Comment on above: Performed By: #### C BC #### [facility] [address] [place], [place] [address] Dr. Sofia Payne WBC 2.9 103/ul Critically low 4.0-11.0 [facility] Comment on above: Performed By: #### C BC #### [facility] [address] [place], [place] [address] ABD/PELVIS WO CONon [...] for patient's symptoms. Electronically authenticated by: VIKAS SAUCEDO Date: 2021-12-24 12:09 Normal [facility] CULTURE URINEon 12-24-2021 CULTURE URINE Culture Observations : NO GROWTH. Normal [facility] Comment on above: Performed By: #### C BC #### [facility] [address] [place] [address] Dr. Sofia Payne ER URINE PROFILEon 2 Bilirubin Ql (U) SMALL Abnormal NEGATIVE [facility] Comment on above: Performed By: #### C BC #### [facility] [address] [place] [address] Dr. Sofia Payne Clarity (U) SL CLOUDY Abnormal CLEAR [facility] Comment on above: Performed By: #### C BC #### [facility] [address] [place] [address] Dr. Sofia Payne Color (U) DK. ORANGE Abnormal YELLOW [facility] Comment on above: Performed By: #### C BC #### [facility] [address] [place] [address] Dr. Sofia STEVENSKeyanna A micrscopic examination will be performed if indicated. Normal [facility] Comment on above: Performed By: #### C BC #### [facility] [address] [place] [address] Dr. Sofia Payne Glucose Ql (U) Negative Normal NEGATIVE [facility] Comment on above: Performed By: #### C BC #### [facility] [address] [place] [address] Dr. Sofia Payne Hemoglobin Ql (U) LARGE Abnormal NEGATIVE [facility] Comment on above: Performed By: #### C BC #### [facility] [address] [place] [address] Dr. Sofia Payne Ketones Ql (U) 40 mg/dl Abnormal NEGATIVE [facility] Comment on above: Performed By: #### C BC #### [facility] [address] [place] [address] Dr. Sofia Payne LEUKOCYTES Negative Normal NEGATIVE [facility] Comment on above: Performed By: #### C BC #### [facility] [address] [place] [address] Dr. Sofia Payne Nitrite Ql (U) Negative Normal NEGATIVE [facility] Comment on above: Performed By: #### C BC #### [facility] [address] [place] [address] Dr. Sofia Payne pH (U) 5.5 [pH] Normal 5-9 [facility] Comment on above: Performed By: #### C BC #### [facility] [address] [place] [address] Dr. Sofia Payne Protein (U) [Mass/Vol] 100 mg/dL Abnormal NEGATIVE/ TRACE [facility] Comment on above: Performed By: #### C BC #### [facility] [address] [place] [address] Dr. Sofia Payne SPEC GRAVITY >=1.030 Abnormal 1.005-<=1.025 [facility] Comment on above: Performed By: #### C BC #### [facility] [address] [place] [address] Dr. Sofia Payne UR MICRO IND INDICATED Normal [facility] Comment on above: Performed By: #### C BC #### [facility] [address] [place] [address] Dr. Sofia Payne Urobilinogen Qn (U) 1.0 {Kristopher'U}/dL Normal 0.2 - 1. 0 [facility] Comment on above: Performed By: #### C BC #### [facility] [address] [place] [address] Dr. Sofia Payne PROF 14(COMP METB)on 022 Albumin [Mass/Vol] 3.8 g/dL Normal 3.4-5.0 [facility] Comment on above: Performed By: #### C BC #### [facility] [address] [place] [address] Dr. Sofia Payne Albumin/Globulin [Mass ratio] 1.2 {ratio} Normal [facility] Comment on above: Performed By: #### C BC #### [facility] [address] [place] [address] Dr. Sofia Payne ALP [Catalytic activity/Vol] 78 U/L Normal 46-116 [facility] Comment on above: Performed By: #### C BC #### [facility] [address] [address] [address] Sofia Payne ALT [Catalytic activity/Vol] 9 U/L Critically low 14-59 [facility] Comment on above: Performed By: #### C BC #### [facility] [address] [address] [address] Sofia Payne Anion gap [Moles/Vol] 13.4 mmol/L Normal [facility] Comment on above: Performed By: #### C BC #### [facility] [address] [address] [address] Sofia Payne AST [Catalytic activity/Vol] 13 U/L Critically low 15-37 [facility] Comment on above: Performed By: #### C BC #### [facility] [address] [place] [address] Dr. Sofia Payne Bilirubin [Mass/Vol] 0.2 mg/dL Normal 0.2-1.0 [facility] Comment on above: Performed By: #### C BC #### [facility] [address] [place] [address] Dr. Sofia Payne Calcium [Mass/Vol] 8.2 mg/dL Critically low 8.5-10.1 [facility] Comment on above: Performed By: #### C BC #### [facility] [address] [place] [address] Dr. Sofia Payne Chloride [Moles/Vol] 106 mmol/L Normal 98-107 [facility] Comment on above: Performed By: #### C BC #### [facility] [address] [address] [address] Sofia Payne CO2 [Moles/Vol] 24.9 mmol/L Normal 21.0-32.0 [facility] Comment on above: Performed By: #### C BC #### [facility] [address] [place] [address] Dr. Sofia Payne Creatinine [Mass/Vol] 0.93 mg/dL Normal 0.55-1.02 [facility] Comment on above: Performed By: #### C BC #### [facility] [address] [address] [address] Sofia Payne EGFR-AF GUYANESE >60 Normal >=60 [facility] Comment on above: Performed By: #### C BC #### [facility] [address] [address] [address] Sofia Payne EGFR-NON AF GUYANESE >60 Normal >=60 [facility] [facility] Comment on above: Performed By: #### C BC #### [facility] [address] [address] [address] Sofia Payne Globulin (S) [Mass/Vol] 3.3 g/dL Normal [facility] Comment on above: Performed By: #### C BC #### [facility] [address] [place] [address] Dr. Sofia Payne Glucose [Mass/Vol] 94 mg/dL Normal 74-106 [facility] Comment on above: Performed By: #### C BC #### [facility] [address] [place] [address] Dr. Sofia Payne Potassium [Moles/Vol] 4.3 mmol/L Normal 3.5-5.1 [facility] Comment on above: Performed By: #### C BC #### [facility] [address] [place] [address] Dr. Sofia Payne Protein [Mass/Vol] 7.1 g/dL Normal 6.4-8.2 [facility] Comment on above: Performed By: #### C BC #### [facility] [address] [place] [address] Dr. Sofia Payne Sodium [Moles/Vol] 140 mmol/L Normal 136-145 [facility] Comment on above: Performed By: #### C BC #### [facility] [address] [place] [address] Dr. Sofia Payne Urea nitrogen [Mass/Vol] 7.0 mg/dL Normal 7.0-18.0 [facility] Comment on above: Performed By: #### C BC #### [facility] [address] [place] [address] Dr. Sofia Payne Urea nitrogen/Creatinine [Mass ratio] 7.5 mg/mg Normal [facility] Comment on above: Performed By: #### C BC #### [facility] [address] [place] [address] Dr. Sofia Payne URINE MICROSCOPIC ONLYon BACTERIA SMALL Abnormal NONE SEEN [facility] Comment on above: Performed By: #### C BC #### [facility] [address] [place] [address] Dr. Sofia Payne Bacteria identified Cx Nom (U) INDICATED Normal [facility] Comment on above: Performed By: #### C BC #### [facility] [address] [place] [address] Dr. Sofia Payne CAST NONE SEEN Normal NONE SEEN [facility] Comment on above: Performed By: #### C BC #### [facility] [address] [place] [address] Dr. Sofia Payne Crystals LM Nom (Urine sed) NONE SEEN Normal NONE SEEN [facility] Comment on above: Performed By: #### C BC #### [facility] [address] [place] [address] Dr. Sofia Payne Epithelial cells LM Ql (Urine sed) FEW Abnormal NONE SEEN /RARE [facility] Comment on above: Performed By: #### C BC #### [facility] [address] [place] [address] Dr. Sofia Payne MUCOUS NONE SEEN Normal NONE SEEN [facility] Comment on above: Performed By: #### C BC #### [facility] [address] [place] [address] Dr. Sofia Payne RBC (U) [#/Vol] /uL Abnormal 0-2 [facility] Comment on above: Performed By: #### C BC #### [facility] [address] [place] [address] Dr. Sofia Payne WBC 2-5 Abnormal NONE SEEN [facility] Comment on above: Performed By: #### C BC #### [facility] [address] [place] [address] Dr. Sofia Payne Covid-19 PCR (CVDTBH)on SARS-CoV-2 (COVID-19) RNA AMPARO+probe Ql (Unsp spec) Not detected Normal NOT DETECTED [facility] Comment on above: Result Comment: This test is not yet approved or cleared by the [place] FDA. When there are no FDA-approved or cleared tests available, and other criteria are met, FDA can make tests available under an emergency access mechanism called an Emergency Use Authorization (EUA). The EUA for this test is supported by the [place] of Health and Human Service's (HHS's) declaration [...] SARS-CoV-2. Performed By: #### C BC #### [facility] [address] [place] [address] Dr. Sofia Payne COVID/FLU/RSV RT-PCRon 12-22 SARS-CoV-2 (COVID-19) RNA AMPARO+probe Ql (Unsp spec) Negative [facility] Other COVID/FLU/RSV RT-PCR Negative [facility] [employer] Other COVID/FLU/RSV RT-PCR Nort [employer] Other Mononucleosis Test, Qualon 0 12-22-2021 Heterophile Ab LA Ql (S) Negative [facility] Other COVID Quick Testingon 2021 Result Negative [facility] Other Quick Strepon 06-04-2021 S. pyogenes Org specific cx Ql (Throat) Negative [facility] Other Quick Strep [facility] Other RAD - Ultrasound Reporton RAD - Ultrasound Report [id number] .00CD:127 [facility] ED Note-Physicianon 02-22-20 20 ED Note-Physician [id number]# 1.00CD:127 [facility] ED Note-Physician [id number]# 1.00CD:127 [facility] ED Note-Physician [id number]# 1.00CD:127 [facility] Physician Referralon 020 Physician Referral [id number]#1. 00CD:127 [facility] Provider Letteron 02-15-2020 Provider Letter February 15, 2020 [address]AR [address] [place] [id number] LINA ALCANTAR 1990 Dear Lina Alcantar, You [...] appreciate your understanding. Sincerely, [facility] [address], [place] [address] [facility] Formson 02-03-2020 Forms [id number] .00CD:127 [facility] Ambulatory Clinical Summaryo n 02-01-2020 Ambulatory Clinical Summary {[id number] Travon Samson [facility] Patient Educationon 02-01-20 Patient Education Family [...] Document Reviewed: 06/18/2012 ExitCare? Patient Information ?2013 [email or web address]. Normal [facility] Reminderson 02-01-2020 Reminders - From: Madhuri Bhagat Cc: Madhuri Bhagat; Sent: 02/01/2020 09:34:17 EDT Show up: 02/01/2020 09:33:00 EDT Subject: [facility] us at [facility] Due Date/Time: 02/03/2020 09:33:00 EDT Reminder/Recall left msg with [facility] sched pt needs renal us scheduled early monring any day and follow up appt to go over results Normal 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 Bhagat. Pt states that since having her son 5 months ago and she has had 4. Last UTI was 01/14/20 and was at [facility]. This has been ongoing since she was [...] of Present Illness Reviewed UA, PVR, and [employer] paperwork. There have been no associated fever [...] (N39.0: Urinary tract infection, site not specified) [employer] referred by Dr. Bhagat for recurrent UTIs. [...] Bactrim 400mg/80mg qd sent to [facility]. All questions/concerns were discussed. Pt. to call [...] LUDWIG, Torres Warner [address] [place] [address]- [phone] Additional Instructions: Patient Education Urinary Tract Infection [...] Protein Urine Dipstick: Negative (02/01/20 09:13:00) Specific Bantam Urine Dipstick: 1.025 (02/01/20 09:13:00) Urine Color Urine Dipstick: Yellow (02/01/20 09:13:00) Urobilinogen Urine Dipstick: Normal 0.2-1 EU/dl (02/01/20 09:13:00) pH Urine Dipstick: 5.5 (02/01/20 09:13:00) Normal [facility] Comment on above: Result Comment: Elec tronically Signed By: Christo LUDWIG, Torres Warner\.br\Date and Time Signed: 02/01/20 09:52 EDT\.br\Electronically Co-Signed By: Dolly Duffy MA\.br\Date and Time Co-Signed: 02/01/20 09:29 EDT Vital Signs Date Time Vital Sign Value Performing Clinician Facility 01-31-2025 09:20-0400 Body mass index (BMI) [Ratio] 35.69 kg/m2 Vonda PINA Work Phone: [facility] 01-31-2025 09:20-0400 Body weight 91.4 kg Vonda PINA Work Phone: [facility] 01-31-2025 09:20-0400 Diastolic blood pressure 82 mm[Hg] Vonda PINA Work Phone: [facility] 01-31-2025 09:20-0400 Systolic blood pressure 120 mm[Hg] Vonda PINA Work Phone: [facility] 01-12-2025 12:06-0400 Body mass index (BMI) [Ratio] 30.67 kg/m2 [facility] Work Phone: [facility] 01-12-2025 12:06-0400 Body temperature 97.81 [degF] [facility] Work Phone: [facility] 01-12-2025 12:06-0400 Body weight 86.18 kg [facility] Work Phone: [facility] 01-12-2025 12:06-0400 Diastolic blood pressure 74 mm[Hg] [facility] Work Phone: [facility] 01-12-2025 12:06-0400 Heart rate 78 /min [facility] Work Phone: [facility] 01-12-2025 12:06-0400 Respiratory rate 18 /min [facility] Work Phone: [facility] 01-12-2025 12:06-0400 SaO2% (BldA) [Mass fraction] 99 % [facility] Work Phone: [facility] 01-12-2025 12:06-0400 Systolic blood pressure 108 mm[Hg] [facility] Work Phone: [facility] 11-28-2024 17:35-0400 Body temperature 98.6 [degF] Glen Powell MD Work Phone: [facility] 11-28-2024 17:35-0400 Diastolic blood pressure 72 mm[Hg] Glen Powell MD Work Phone: [facility] 11-28-2024 17:35-0400 Heart rate 80 /min Glen Poewll MD Work Phone: [facility] 11-28-2024 17:35-0400 Respiratory rate 16 /min Glen Powell MD Work Phone: [facility] 11-28-2024 17:35-0400 SaO2% (BldA) [Mass fraction] 100 % Glen Powell MD Work Phone: [facility] 11-28-2024 17:35-0400 Systolic blood pressure 118 mm[Hg] Glen Powell MD Work Phone: [facility] 11-01-2024 11:14-0400 Body mass index (BMI) [Ratio] 35.61 kg/m2 Jefry Lorelei-Nossek DIAGRAMMER[employer] Work Phone: [facility] 11-01-2024 11:14-0400 Body weight 91.17 kg Jefry Lorelei-Nossek [employer]AGRAMMER[employer] Work Phone: [facility] 11-01-2024 11:14-0400 Diastolic blood pressure 68 mm[Hg] Jefry Lorelei-Nossek [employer]AGRAMMER[employer] Work Phone: [facility] 11-01-2024 11:14-0400 Heart rate 85 /min Jefry Lorelei-Nossek [employer]AGRAMMER[employer] Work Phone: [facility] 11-01-2024 11:14-0400 Systolic blood pressure 110 mm[Hg] Jefry Lorelei-Nossek [employer]RAM[employer] Work Phone: [facility] 10-11-2024 10:55-0400 Body mass index (BMI) [Ratio] 35.96 kg/m2 Jefry Lorelei-Nossek [employer]AGRAM[employer] Work Phone: [facility] 10-11-2024 10:55-0400 Body weight 92.08 kg Jefry Lorelei-Nossek DIAGRAMMER[employer] Work Phone: [facility] 10-11-2024 10:55-0400 Diastolic blood pressure 78 mm[Hg] Jefry Lorelei-Nossek [employer]AGRAMMER[employer] Work Phone: [facility] 10-11-2024 10:55-0400 Heart rate 76 /min Jefry Lorelei-Nossek DIAGRAMMER[employer] Work Phone: [facility] 10-11-2024 10:55-0400 Systolic blood pressure 124 mm[Hg] Jefry Lorelei-Nossek DIAGRAMMER[employer] Work Phone: [facility] 09-06-2024 09:17-0400 Body mass index (BMI) [Ratio] 37.38 kg/m2 Jefry Lorelei-Nossek [employer]AGRAMMER[employer] Work Phone: [facility] 09-06-2024 09:17-0400 Body weight 95.71 kg Jefry Lorelei-Nossek DIAGRAMMER[employer] Work Phone: [facility] 09-06-2024 09:17-0400 Diastolic blood pressure 80 mm[Hg] Jefry Lorelei-Nossek DIAGRAMMER[employer] Work Phone: [facility] 09-06-2024 09:17-0400 Heart rate 69 /min Jefry Lorelei-Nossek DIAGRAMMER-[employer]RA[employer] Work Phone: [facility] 09-06-2024 09:17-0400 Systolic blood pressure 118 mm[Hg] Jefry Lorelei-Nossek DIAGRAMMER[employer] Work Phone: [facility] 06-30-2024 10:02-0500 Body mass index (BMI) [Ratio] 37.2 kg/m2 Jefry Lorelei-Nossek [employer]AGRAMMER[employer] Work Phone: [facility] 06-30-2024 10:02-0500 Body weight 95.25 kg Jefry Lorelei-Nossek DIAGRAMMER[employer] Work Phone: [facility] 06-30-2024 10:02-0500 Diastolic blood pressure 64 mm[Hg] Jefry Lorelei-Nossek DIAGRAMMER[employer] Work Phone: [facility] 06-30-2024 10:02-0500 Heart rate 84 /min Jefry Lorelei-Nossek DIAGRAMMER[employer] Work Phone: [facility] 06-30-2024 10:02-0500 Systolic blood pressure 118 mm[Hg] Jerfy Lorelei-Nossek DIAGRAMMER-[employer]RA[employer] Work Phone: [facility] 05-31-2024 21:28-0500 Body temperature 97.81 [degF] Rosalie Nagy MD Work Phone: [facility] 05-31-2024 21:28-0500 Diastolic blood pressure 87 mm[Hg] Rosalie Nagy MD Work Phone: [facility] 05-31-2024 21:28-0500 Heart rate 97 /min Rosalie Nagy MD Work Phone: [facility] 05-31-2024 21:28-0500 Respiratory rate 16 /min Rosalie Nagy MD Work Phone: [facility] 05-31-2024 21:28-0500 SaO2% (BldA) [Mass fraction] 100 % Rosalie Nagy MD Work Phone: [facility] 05-31-2024 21:28-0500 Systolic blood pressure 104 mm[Hg] Rosalie Nagy MD Work Phone: [facility] 05-23-2024 09:44-0500 Body mass index (BMI) [Ratio] 36.14 kg/m2 Jefry Lorelei-Nossek DIAGRAMMER-[employer]RA[employer] Work Phone: [facility] 05-23-2024 09:44-0500 Body weight 92.53 kg Jefry Lorelei-Nossek DIAGRAMMER-[employer]RA[employer] Work Phone: [facility] 05-23-2024 09:44-0500 Diastolic blood pressure 82 mm[Hg] Jefry Lorelei-Nossek DIAGRAMMER[employer] Work Phone: [facility] 05-23-2024 09:44-0500 Heart rate 90 /min Jefry Lorelei-Nossek DIAGRAMMER-[employer] D[employer]RA[employer] Work Phone: [facility] 05-23-2024 09:44-0500 Systolic blood pressure 118 mm[Hg] Jefry Lorelei-Nossek DIAGRAMMER-STEEL D[employer]RAVER Work Phone: [facility] 05-02-2024 09:44-0500 Body mass index (BMI) [Ratio] 36.31 kg/m2 Jefry Lorelei-Nossek DIAGRAMMER-[employer]RA[employer] Work Phone: [facility] 05-02-2024 09:44-0500 Body weight 92.99 kg Jefry Lorelei-Nossek DIAGRAMMER-[employer] Work Phone: [facility] 05-02-2024 09:44-0500 Diastolic blood pressure 74 mm[Hg] Jefry Lorelei-Nossek DIAGRAMMER-[employer]RA[employer] Work Phone: [facility] 05-02-2024 09:44-0500 Heart rate 82 /min Jefry Lorelei-Nossek DIAGRAMMER-STE[employer]RA[employer] Work Phone: [facility] 05-02-2024 09:44-0500 Systolic blood pressure 122 mm[Hg] Jefry Lorelei-Nossek DIAGRAMMER-STEEL D[employer]RA[employer] Work Phone: [facility] 04-28-2024 11:35-0500 Body height 160 cm Rosarioderek Escamilla [employer] Work Phone: [facility] 04-28-2024 11:35-0500 Body mass index (BMI) [Ratio] 35.71 kg/m2 Rosario Francine [employer] Work Phone: [facility] 04-28-2024 11:35-0500 Body temperature 98.71 [degF] Rosario Francine [employer] Work Phone: [facility] 04-28-2024 11:35-0500 Body weight 91.44 kg Rosario Francine [employer] Work Phone: [facility] 04-28-2024 11:35-0500 Diastolic blood pressure 78 mm[Hg] Rosario Francine [employer] Work Phone: [facility] 04-28-2024 11:35-0500 Heart rate 93 /min Rosario Hernandezsally [employer] Work Phone: [facility] 04-28-2024 11:35-0500 Respiratory rate 19 /min Rosario Quinterozafar [employer]IC Work Phone: [facility] 04-28-2024 11:35-0500 SaO2% (BldA) [Mass fraction] 100 % Rosario Hernandezsally [employer] Work Phone: [facility] 04-28-2024 11:35-0500 Systolic blood pressure 118 mm[Hg] Rosario Hernandezsally [employer] Work Phone: [facility] 04-22-2024 14:15-0500 Body temperature 97.9 [degF] [facility] 04-22-2024 14:15-0500 Diastolic blood pressure 71 mm[Hg] [facility] 04-22-2024 14:15-0500 Heart rate 86 /min [facility] 04-22-2024 14:15-0500 Respiratory rate 22 /min [facility] 04-22-2024 14:15-0500 SaO2% (BldA) [Mass fraction] 100 % [facility] 04-22-2024 14:15-0500 Systolic blood pressure 107 mm[Hg] [facility] 04-13-2024 10:59-0500 Body height 160 cm Rosario Francine [employer] Work Phone: [facility] 04-13-2024 10:59-0500 Body mass index (BMI) [Ratio] 37.41 kg/m2 Rosario Francine [employer] Work Phone: [facility] 04-13-2024 10:59-0500 Body temperature 97.81 [degF] Rosario Francine [employer] Work Phone: [facility] 04-13-2024 10:59-0500 Body weight 95.8 kg Rosario Francine [employer] Work Phone: [facility] 04-13-2024 10:59-0500 Diastolic blood pressure 78 mm[Hg] Rosario Quinteromandiz [employer] Work Phone: [facility] 04-13-2024 10:59-0500 Heart rate 86 /min Rosario Hernandezmahadz [employer] Work Phone: [facility] 04-13-2024 10:59-0500 Respiratory rate 19 /min Rosarioderek Quinteromandiz [employer] Work Phone: [facility] 04-13-2024 10:59-0500 SaO2% (BldA) [Mass fraction] 100 % Rosario Ingridmandiz [employer] Work Phone: [facility] 04-13-2024 10:59-0500 Systolic blood pressure 110 mm[Hg] Rosario Hernandezmahadz [employer] Work Phone: [facility] 04-12-2024 09:51-0500 Body mass index (BMI) [Ratio] 36.87 kg/m2 Vonda Woods PA Work Phone: [facility] 04-12-2024 09:51-0500 Body weight 94.4 kg Vonda Woods PA Work Phone: [facility] 04-12-2024 09:51-0500 Diastolic blood pressure 72 mm[Hg] Vonda Woods PA Work Phone: [facility] 04-12-2024 09:51-0500 Systolic blood pressure 112 mm[Hg] Vonda Woods PA Work Phone: [facility] 03-02-2024 09:29-0400 Body height 160 cm Rosario Bettyz [employer] Work Phone: [facility] 03-02-2024 09:29-0400 Body mass index (BMI) [Ratio] 35.92 kg/m2 Rosario Ingridholz [employer] Work Phone: [facility] 03-02-2024 09:29-0400 Body temperature 98.49 [degF] Rosario Bettyz [employer] Work Phone: [facility] 03-02-2024 09:29-0400 Body weight 91.99 kg Rosario Aichholz [employer] Work Phone: [facility] 03-02-2024 09:29-0400 Diastolic blood pressure 80 mm[Hg] Rosario Aichholz [employer] Work Phone: [facility] 03-02-2024 09:29-0400 Heart rate 82 /min Rosario Aichholz [employer] Work Phone: [facility] 03-02-2024 09:29-0400 Respiratory rate 18 /min Rosario Aichholz [employer] Work Phone: [facility] 03-02-2024 09:29-0400 SaO2% (BldA) [Mass fraction] 98 % Rosario Aichholz [employer] Work Phone: [facility] 03-02-2024 09:29-0400 Systolic blood pressure 110 mm[Hg] Rosario Aichholz [employer]CH[employer] Work Phone: [facility] 02-18-2024 13:23-0400 Body height 160 cm Rosario Aichholz [employer] Work Phone: [facility] 02-18-2024 13:23-0400 Body mass index (BMI) [Ratio] 35.71 kg/m2 Rosario Aichholz [employer] Work Phone: [facility] 02-18-2024 13:23-0400 Body temperature 98.49 [degF] Rosario Aichholz [employer] Work Phone: [facility] 02-18-2024 13:23-0400 Body weight 91.44 kg Rosario Aichholz [employer] Work Phone: [facility] 02-18-2024 13:23-0400 Diastolic blood pressure 76 mm[Hg] Rosario Aichholz [employer] Work Phone: [facility] 02-18-2024 13:23-0400 Heart rate 84 /min Rosario Aichholz [employer] Work Phone: [facility] 02-18-2024 13:23-0400 Respiratory rate 18 /min Rosario Escamilla [employer] Work Phone: [facility] 02-18-2024 13:23-0400 SaO2% (BldA) [Mass fraction] 98 % Rosario Escamilla [employer] Work Phone: [facility] 02-18-2024 13:23-0400 Systolic blood pressure 110 mm[Hg] Rosario Escamilla [employer] Work Phone: [facility] 02-07-2024 18:36-0400 Body temperature 97.7 [degF] [facility] [employer] [facility] [employer] 02-07-2024 18:36-0400 Diastolic blood pressure 84 mm[Hg] [email or web address] [employer] 02-07-2024 18:36-0400 Heart rate 67 /min [facility] 02-07-2024 18:36-0400 Respiratory rate 15 /min [email or web address] [employer] 02-07-2024 18:36-0400 SaO2% (BldA) [Mass fraction] 98 % [email or web address] [employer] 02-07-2024 18:36-0400 Systolic blood pressure 122 mm[Hg] [facility] 09-10-2023 17:43-0400 Body height 157.5 cm Tiesha Rosas DO Work Phone: [facility] [employer] 09-10-2023 17:43-0400 Body mass index (BMI) [Ratio] 38.78 kg/m2 Tieshameng Rosas DO Work Phone: [facility] [employer] [facility] 09-10-2023 17:43-0400 Body temperature 98.2 [degF] Tieshaaleks Rosas DO Work Phone: [facility] [employer] 09-10-2023 17:43-0400 Body weight 96.16 kg Tiesha Rosas DO Work Phone: [facility] [employer] 09-10-2023 17:43-0400 Diastolic blood pressure 83 mm[Hg] Itesha Rosas DO Work Phone: [facility] [employer] 09-10-2023 17:43-0400 Heart rate 87 /min Tiesha Rosas DO Work Phone: [facility] [employer] 09-10-2023 17:43-0400 Respiratory rate 20 /min Tiesha Rosas DO Work Phone: [facility] [employer] 09-10-2023 17:43-0400 SaO2% (BldA) [Mass fraction] 100 % Tiesha Rosas DO Work Phone: [facility] [employer] 09-10-2023 17:43-0400 Systolic blood pressure 137 mm[Hg] Tiesha Rosas DO Work Phone: [facility] 07-08-2023 14:32-0500 Body mass index (BMI) [Ratio] 36.39 kg/m2 [place] Rigoberto DO Work Phone: [facility] 07-08-2023 14:32-0500 Body weight 96.16 kg [place] Rigoberto DO Work Phone: [facility] 07-08-2023 14:32-0500 Diastolic blood pressure 74 mm[Hg] [place] Rigoberto DO Work Phone: [facility] 07-08-2023 14:32-0500 Systolic blood pressure 118 mm[Hg] [place] Rigoberto DO Work Phone: [facility] 10-23-2022 10:15-0400 Body temperature 99.5 [degF] Tiesha Rosas DO Work Phone: [facility] [employer] 10-23-2022 10:15-0400 Diastolic blood pressure 60 mm[Hg] Tiesha Rosas DO Work Phone: [facility] [employer] 10-23-2022 10:15-0400 Heart rate 94 /min Tiesha Rosas DO Work Phone: [facility] [employer] 10-23-2022 10:15-0400 Systolic blood pressure 114 mm[Hg] Tiesha Rosas DO Work Phone: [facility] [employer] 10-23-2022 08:48-0400 SaO2% (BldA) [Mass fraction] 98 % Tiesha Rosas DO Work Phone: [facility] [employer] 10-23-2022 08:27-0400 Body mass index (BMI) [Ratio] 32.61 kg/m2 Tiesha Rosas DO Work Phone: [facility] [employer] 10-23-2022 08:27-0400 Body weight 86.18 kg Tiesha Rosas DO Work Phone: [facility] Pops 10-23-2022 08:27-0400 Respiratory rate 16 /min Tiesha Rosas DO Work Phone: [facility] 10-22-2022 09:47-0400 Diastolic blood pressure 70 mm[Hg] Nancy West MD Work Phone: [facility] 10-22-2022 09:47-0400 Systolic blood pressure 105 mm[Hg] Nancy West MD Work Phone: [facility] 10-22-2022 09:42-0400 Body height 162.6 cm Nancy West MD Work Phone: [facility] 10-22-2022 09:42-0400 Body mass index (BMI) [Ratio] 32.61 kg/m2 Nancy West MD Work Phone: [facility] 10-22-2022 09:42-0400 Body temperature 100.09 [degF] Nancy West MD Work Phone: [facility] 10-22-2022 09:42-0400 Body weight 86.18 kg Nancy West MD Work Phone: [facility] 10-22-2022 09:42-0400 Heart rate 97 /min Nancy West MD Work Phone: [facility] 10-22-2022 09:42-0400 Respiratory rate 18 /min [facility]-22-[facility]22 09:42-0400 SaO2% (BldA) [Mass fraction] 98 % Nancy West MD [facility] 12-22-2021 13:10-0400 Body height 162.56 cm Lissette Shin Other [facility] Other 12-22-2021 13:10-0400 Body temperature 101.2 [degF] Lissette Shin Other [facility] Other 12-22-2021 13:10-0400 Respiratory rate 18 /min Lissette Shin Other [facility] Other 12-22-2021 13:10-0400 SaO2% (BldA) [Mass fraction] 98 % Lissette Shin Other [facility] Other 06-04-2021 18:00-0500 Body height 162.56 cm Lissette Ginty Other [facility] Other 06-04-2021 18:00-0500 Body mass index (BMI) [Ratio] 30.89 kg/m2 Lissette Ginty Other [facility] Other 06-04-2021 18:00-0500 Body temperature 97.3 [degF] Lissette Ginty Other [facility] Other 06-04-2021 18:00-0500 Body weight 81.65 kg Lissette Ginty Other [facility] Other 06-04-2021 18:00-0500 Respiratory rate 18 /min Lissette Ginty Other [facility] Other 06-04-2021 18:00-0500 SaO2% (BldA) [Mass fraction] 98 % Lissette Lee Other [facility] Other Encounters Encounter Date Encounter Type Care Provider Facility Start: 01-31-2025 End: 01-31-2025 Bamboo flowsheet Vonda PINA Work Phone: [facility] Start: 01-31-2025 End: 01-31-2025 Bamboo flowsheet oVnda PINA Work Phone: [facility] Start: 01-31-2025 End: 01-31-2025 Office outpatient visit 15 minutes Vonda PINA Work Phone: [facility] Comment on above: Vaginal itching; Nipple discharge; Breast pain; UTI symptoms Start: 01-12-2025 End: 01-12-2025 Emergency department patient visit NOAH SANABRIA [facility] Emergency Department Comment on above: Bacterial vaginosis (Primary Dx); Acute cystitis with hematuria Start: 12-09-2024 End: 12-09-2024 Transcribe Orders Noah Sanabria [facility] Work Phone: Referring Physician Comment on above: Generalized anxiety disorder (Primary Dx); ADHD, predominantly inattentive type; Bipolar affective disorder, remission status unspecified ([facility]) Start: 11-28-2024 End: 11-28-2024 Emergency department patient visit Glen Powell MD Work Phone: [facility] Emergency Department Comment on above: Viral syndrome (Prim waqas Dx); Other headache syndrome; Diarrhea, unspecified type Start: 11-07-2024 End: 11-07-2024 Bamboo flowsheet Obdulio Collins DIRECTOR DESIGN [facility] Start: 11-07-2024 End: 11-07-2024 Bamboo flowsheet Obdulio Collins DIRECTOR DESIGN [facility] Start: 11-07-2024 End: 11-07-2024 ambulatory OBDULIO COLLINS Not Available Start: 11-01-2024 End: 11-01-2024 Bamboo flowsheet Jefry New Lorelei-Nossek DIAGRAMMER-STEEL DIE ENGRAVER Work Phone: [facility] Start: 11-01-2024 End: 11-01-2024 Bamboo flowsheet Jefry New Lorelei-Nossek DIAGRAMMER-STEEL DIE ENGRAVER Work Phone: [facility] Start: 11-01-2024 End: 11-01-2024 Office outpatient visit 15 minutes Jefry Clintonor-Nossek DIAGRAMMER-STEEL DIE ENGRAVER Work Phone: [facility] Comment on above: Bipolar 1 disorder ( CMS/HCC); KELI (generalized anxiety disorder) (CMS/HCC); Opioid dependence in remission (CMS/HCC); Attention deficit hyperactivity disorder (ADHD), predominantly inattentive type (CMS/HCC); Insomnia due to other mental disorder Start: 11-01-2024 End: 11-01-2024 ambulatory JEFRY New LORELEI-NOSSEK Not Available Start: 10-13-2024 End: 10-13-2024 ambulatory OBDULIO COLLINS Not Available Start: 10-11-2024 End: 10-11-2024 Bamboo flowsheet Jefry New Lorelei-Nossek DIAGRAMMER-STEEL DIE ENGRAVER Work Phone: [facility] Start: 10-11-2024 End: 10-11-2024 Bamboo flowsheet Jefry New Lorelei-Nossek DIAGRAMMER-STEEL DIE ENGRAVER Work Phone: [facility] Start: 10-11-2024 End: 10-11-2024 Office outpatient visit 25 minutes Jefry New Lorelei-Nossek DIAGRAMMER-STEEL DIE ENGRAVER Work Phone: [facility] Comment on above: Bipolar 1 disorder ( CMS/HCC); Insomnia due to other mental disorder; Attention deficit hyperactivity disorder (ADHD), predominantly inattentive type (CMS/HCC) Start: 10-11-2024 End: 10-11-2024 ambulatory JEFRY New LORELEI-NOSSEK Not Available Start: 09-15-2024 End: 09-15-2024 Bamboo flowsheet Obdulio Malicknestor [facility] Start: 09-15-2024 End: 09-15-2024 Bamboo flowsheet Obdulio Malicki DIRECTOR DESIGN [facility] Start: 09-15-2024 End: 09-15-2024 ambulatory OBDULIO MALICKI Not Available Start: 09-06-2024 End: 09-06-2024 Bamboo flowsheet Jefry New Lorelei-Nossek DIAGRAMMER-STEEL DIE ENGRAVER Work Phone: [facility] Start: 09-06-2024 End: 09-06-2024 Bamboo flowsheet Jefry New Lorelei-Nossek DIAGRAMMER-STEEL DIE ENGRAVER Work Phone: [facility] Start: 09-06-2024 End: 09-06-2024 Office outpatient visit 25 minutes Jefry New Lorelei-Nossek DIAGRAMMER-STEEL DIE ENGRAVER Work Phone: [facility] Comment on above: Attention deficit hy peractivity disorder (ADHD), unspecified ADHD type (CMS/HCC) Start: 09-06-2024 End: 09-06-2024 ambulatory JEFRY New LORELEI-NOSSEK Not Available Start: 08-24-2024 End: 08-24-2024 ambulatory NOAH SANABRIA [facility] Start: 08-24-2024 End: 08-24-2024 Subsequent hospital visit by physician Noah Sanabria DIAGRAMMER - 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 Work Phone: [facility] Comment on above: Chronic fatigue Start: 08-04-2024 End: 08-04-2024 Bamboo flowsheet Obdulio Malicki DIRECTOR DESIGN [facility] Start: 08-04-2024 End: 08-04-2024 Bamboo flowsheet Obduloi Malicki DIRECTOR DESIGN [facility] Start: 08-04-2024 End: 08-04-2024 ambulatory OBDULIO MALICKI Not Available Start: 08-02-2024 End: 08-02-2024 ambulatory JEFRY Sobia LORELEI-NOSSEK Not Available Start: 07-28-2024 End: 07-28-2024 Bamboo flowsheet Obdulio Malicki DIRECTOR DESIGN [facility] Start: 07-28-2024 End: 07-28-2024 Bamboo flowsheet Obdulio Malicki DIRECTOR DESIGN [facility] Start: 07-28-2024 End: 07-28-2024 ambulatory OBDULIO ROBBINSICKI Not Available Start: 07-14-2024 End: 07-14-2024 Bamboo flowsheet Obdulio Robbinsicki DIRECTOR DESIGN [facility] Start: 07-14-2024 End: 07-14-2024 Bamboo flowsheet Obdulio Robbinsicki DIRECTOR DESIGN [facility] Start: 07-14-2024 End: 07-14-2024 ambulatory OBDULIO ROBBINSICKI Not Available Start: 06-30-2024 End: 06-30-2024 Bamboo flowsheet Jefry New Lorelei-Nossek DIAGRAMMER-STEEL DIE ENGRAVER Work Phone: [facility] Start: 06-30-2024 End: 06-30-2024 Bamboo flowsheet Jefry Sobia Lorelei-Nossek DIAGRAMMER-STEEL DIE ENGRAVER Work Phone: [facility] Start: 06-30-2024 End: 06-30-2024 ambulatory JEFRY Sobia LORELEI-NOSSEK Not Available Start: 06-30-2024 End: 06-30-2024 Office outpatient visit 40 minutes Jefry Sobia Lorelei-Nossek DIAGRAMMER-STEEL DIE ENGRAVER Work Phone: [facility] Comment on above: Bipolar 1 disorder ( CMS/HCC); Insomnia due to other mental disorder Start: 06-08-2024 End: 06-08-2024 Bamboo flowsheet Obdulio Hustoni DIRECTOR DESIGN [facility] Start: 06-08-2024 End: 06-08-2024 Bamboo flowsheet Obdulio Hustoni DIRECTOR DESIGN [facility] Start: 06-08-2024 End: 06-08-2024 ambulatory OBDULIO HUSTONI Not Available Start: 05-31-2024 End: 05-31-2024 Emergency department patient visit Rosalie Nagy MD Work Phone: [facility] Emergency Department Comment on above: Acute upper respirat ory infection (Primary Dx) Start: 05-31-2024 End: 05-31-2024 Emergency department patient visit NO PCP NO PCP [facility] Start: 05-23-2024 End: 05-23-2024 Bamboo flowsheet Jefry New Lorelei-Nossek DIAGRAMMER-STEEL DIE ENGRAVER Work Phone: [facility] Start: 05-23-2024 End: 05-23-2024 Bamboo flowsheet Jefry New Lorelei-Nossek DIAGRAMMER-STEEL DIE ENGRAVER Work Phone: [facility] Start: 05-23-2024 End: 05-23-2024 ambulatory JEFRY New LORELEI-NOSSEK Not Available Start: 05-23-2024 End: 05-23-2024 Office outpatient visit 25 minutes Jefry New Lorelei-Nossek DIAGRAMMER-STEEL DIE ENGRAVER Work Phone: [facility] Comment on above: Hx of high risk medi cation treatment; Bipolar 1 disorder ([facility]) Start: 05-02-2024 End: 05-02-2024 Bamboo flowsheet Jefry New Lorelei-Nossek DIAGRAMMER-STEEL DIE ENGRAVER Work Phone: [facility] Start: 05-02-2024 End: 05-02-2024 Bamboo flowsheet Jefry New Lorelei-Nossek DIAGRAMMER-STEEL DIE ENGRAVER Work Phone: [facility] Start: 05-02-2024 End: 05-02-2024 Office outpatient new 60 minutes Jefry New Lorelei-Nossek DIAGRAMMER-STEEL DIE ENGRAVER Work Phone: [facility] Comment on above: KELI (generalized anx iety disorder) ([facility]) Start: 05-02-2024 End: 05-02-2024 ambulatory JEFRY New LORELEI-NOSSEK Not Available Start: 04-28-2024 End: 04-28-2024 Office outpatient visit 10 minutes Rosario Francine STARTER MECHANIC Work Phone: [facility] Comment on above: Acute non-recurrent pansinusitis (Primary Dx); Tobacco dependence Start: 04-28-2024 End: 04-28-2024 ambulatory ROSARIO AICHHOLZ Not Available Start: 04-27-2024 End: 04-27-2024 Refill Rosario Aichmandiz STARTER MECHANIC Work Phone: [facility] Comment on above: KELI (generalized anx iety disorder) ([facility]); Fibromyalgia Start: 04-22-2024 End: 04-22-2024 Emergency department patient visit [facility] ED Comment on above: Lower respiratory in fection (Primary Dx); Acute non-recurrent pansinusitis Start: 04-13-2024 End: 04-13-2024 Bamboo flowsheet Rosario Escamilla STARTER MECHANIC Work Phone: [facility] Start: 04-13-2024 End: 04-13-2024 Bamboo flowsheet Rosario Escamilla STARTER MECHANIC Work Phone: [facility] Start: 04-13-2024 End: 04-13-2024 Office outpatient visit 25 minutes Rosario Escamilla STARTER MECHANIC Work Phone: [facility] Comment on above: KELI (generalized anx iety disorder) ([facility]) (Primary Dx); Class 2 obesity due to excess calories without serious comorbidity with body mass index (BMI) of 35.0 to 35.9 in adult; Tobacco dependence; Abnormal weight gain Start: 04-13-2024 End: 04-13-2024 ambulatory ROSARIO ESCAMILLA Not Available Start: 04-12-2024 End: 04-12-2024 Bamboo [...] Unsolicited Start: 04-12-2024 End: 04-12-2024 ambulatory VONDA WOODS Not Available Start: 04-12-2024 End: 04-12-2024 Office outpatient visit 15 minutes Vonda PINA Work Phone: [facility] Comment on above: Vaginal discharge; Pelvic pain in female Start: 03-02-2024 End: 03-02-2024 Bamboo flowsheet Rosario Aicmahadz STARTER MECHANIC Work Phone: [facility] Start: 03-02-2024 End: 03-02-2024 Bamboo flowsheet Rosario Aichholz STARTER MECHANIC Work Phone: [facility] Start: 03-02-2024 End: 03-02-2024 Refill Rosario Aichholz STARTER MECHANIC Work Phone: [facility] Comment on above: Fibromyalgia (Primar y Dx) Start: 03-02-2024 End: 03-02-2024 Office outpatient visit 15 minutes Rosario Aichholz STARTER MECHANIC Work Phone: [facility] Comment on above: Fibromyalgia (Primar y Dx); KELI (generalized anxiety disorder) ([facility]); Class 2 obesity due to excess calories without serious comorbidity in adult, unspecified BMI Start: 02-18-2024 End: 02-18-2024 Bamboo flowsheet Rosario Aichholz STARTER MECHANIC Work Phone: [facility] Start: 02-18-2024 End: 02-18-2024 Bamboo flowsheet Rosario Aichholz STARTER MECHANIC Work Phone: [facility] Start: 02-18-2024 End: 02-18-2024 ambulatory ROSARIO AICHHOLZ Not Available Start: 02-18-2024 End: 02-18-2024 Office outpatient visit 15 minutes Rosario Aichholz STARTER MECHANIC Work Phone: [facility] Comment on above: Subacute maxillary s inusitis (Primary Dx); Class 2 obesity due to excess calories without serious comorbidity in adult, unspecified BMI; COVID; Non-recurrent acute suppurative otitis media of right ear without spontaneous rupture of tympanic membrane Start: 02-11-2024 End: 02-11-2024 Refill Rosario Aichholz STARTER MECHANIC Work Phone: [facility] Comment on above: Dizziness and giddin ess (Primary Dx) Start: 02-08-2024 End: 02-08-2024 Emergency department patient visit [facility] Start: 02-07-2024 End: 02-07-2024 Emergency department patient visit [facility] ED Start: 02-05-2024 End: 02-05-2024 Refill Rosario Aichholz STARTER MECHANIC Work Phone: [facility] Comment on above: Abnormal weight gain ; Class 2 obesity due to excess calories without serious comorbidity in adult, unspecified BMI Start: 02-04-2024 End: 02-04-2024 Emergency department patient visit [facility] Start: 01-07-2024 End: 01-07-2024 ambulatory ROSARIO AICHHOLZ Not Available Start: 12-09-2023 End: 12-09-2023 ambulatory ROSARIO AICHHOLZ Not Available Start: 09-23-2023 End: 09-23-2023 ambulatory Rosario J Davidhmandiz Facility:[facility] Start: 09-23-2023 End: 09-23-2023 ambulatory Rosario Ingridholz Work Phone: [facility] Work Phone: Start: 09-23-2023 End: 09-23-2023 Departed Referred Rosario Ingridholz Work Phone: [facility] Start: 09-10-2023 End: 09-10-2023 Emergency department patient visit Tiesha Rosas DO Work Phone: [facility] Comment on above: Right flank pain (Pr imary Dx) Start: 07-08-2023 End: 07-08-2023 Patient encounter procedure Montana Rigoberto DO Work Phone: [facility] Work Phone: Start: 07-08-2023 End: 07-08-2023 Periodic preventive med est patient 18-39 yrs Montana Rigoberto DO Work Phone: [facility] Comment on above: Well woman exam with routine gynecological exam; Preop examination; Menorrhagia with irregular cycle; Pelvic pain in female Start: 07-08-2023 End: 07-08-2023 Preprocedural examination done Montana Franklin DO Work Phone: [facility] Start: 10-23-2022 End: 10-23-2022 Emergency department patient visit Tiesha Rosas DO Work Phone: [facility] Comment on above: Viral syndrome (Prim waqas Dx); Migraine without aura and with status migrainosus, not intractable; Sinus congestion Start: 10-22-2022 End: 10-22-2022 Emergency department patient visit Nancy West MD Work Phone: [facility] Comment on above: Nonintractable heada audie, unspecified chronicity pattern, unspecified headache type (Primary Dx); Acute recurrent sinusitis, unspecified location Start: 07-19-2022 End: 07-19-2022 ambulatory 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 ROSARIO AICHHOLZ Facility:[facility] Start: 05-20-2022 End: 05-20-2022 ambulatory 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 ROSARIO AICHHOLZ Facility:[facility] Start: 05-01-2022 End: 05-01-2022 ambulatory 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 ROSARIO AICHHOLZ Facility:[facility] Start: 04-23-2022 End: 04-24-2022 ambulatory 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 ROSARIO AICHHOLZ Facility:[facility] Start: 02-08-2022 End: 02-08-2022 ambulatory 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 ROSARIO AICHHOLZ Facility:[facility] Start: 12-31-2021 End: 12-31-2021 ambulatory 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 ROSAROI AICHHOLZ Facility:[facility] Start: 12-30-2021 End: 12-31-2021 ambulatory 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 ROSARIO AICHHOLZ Facility:[facility] Start: 12-24-2021 End: 12-24-2021 ambulatory 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 ROSARIO AICHHOLZ Facility:[facility] Start: 12-23-2021 End: 12-23-2021 ambulatory 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 ROSARIO AICHHOLZ Facility:[facility] Start: 12-22-2021 End: 12-22-2021 ambulatory Lissette Shin Other [facility] Other Start: 12-22-2021 Office outpatient vi sit 25 minutes Lissette Shin [facility] [place] Start: 06-04-2021 End: 06-04-2021 ambulatory Lissette Ginty Other [facility] Other Start: 06-04-2021 Office outpatient vi sit 15 minutes Lissette Ginty [facility] [place] Procedures Date Procedure Procedure Detail Performing Clinician Start: 01-12-2025 Urinalysis microscop ic only Meredith Bedenkop DIAGRAMMER - 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 Work Phone: Start: 01-12-2025 Urnls dip stick/tabl et rgnt auto w/o microscopy Meredith Bedenkop DIAGRAMMER - 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 Work Phone: Start: 11-07-2024 End: 11-07-2024 Psychotherapy w/patient 30 minutes Bipolar 1 disorder (HCC) Obdulio Collins [facility] Comment on above: Bipolar 1 disorder ( HCC); KELI (generalized anxiety disorder) ; Attention deficit hyperactivity disorder (ADHD), predominantly inattentive type Start: 09-15-2024 End: 09-15-2024 Psychotherapy w/patient 45 minutes Attention deficit hyperactivity disorder (ADHD), unspecified ADHD type (CMS/HCC) Obdulio Collins DIRECTOR DESIGN Comment on above: Attention deficit hy peractivity disorder (ADHD), unspecified ADHD type (CMS/HCC); KELI (generalized anxiety disorder) (CMS/HCC); Bipolar 1 disorder (CMS/HCC) Start: 08-24-2024 Comprehensive metabo lic panel Noah Sanabria DIAGRAMMER - 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 Work Phone: Start: 07-14-2024 End: 07-14-2024 Psychotherapy w/patient 60 minutes Bipolar 1 disorder (CMS/HCC) Obdulio Collins DIRECTOR DESIGN Comment on above: Bipolar 1 disorder ( CMS/HCC); KELI (generalized anxiety disorder) (CMS/HCC) Start: 06-08-2024 End: 06-08-2024 Psychiatric diagnostic evaluation KELI (generalized anxiety disorder) (CMS/HCC) Obdulio Collins DIRECTOR DESIGN Comment on above: KELI (generalized anx iety disorder) ([facility]); Bipolar 1 disorder ([facility]) Start: 05-31-2024 COVID-19, RAPID Rosalie Nagy MD Work Phone: Start: 05-31-2024 [facility] influenza Juan J is Hiro Nagy MD Work Phone: Start: 04-22-2024 Radiologic exam ches t 2 views M Dale Colón DIAGRAMMER - 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 Work Phone: Start: 04-12-2024 URINARY TRACT INFECT ION (HTRX) Vonda PINA Work Phone: Start: 04-12-2024 ALL CBC WITH AUTO DIFF Vonda PINA Work Phone: Start: 04-12-2024 Urnls dip stick/tabl et rgnt non-auto w/o micrscp Montana Rigoberto DO Work Phone: Start: 09-10-2023 End: 09-10-2023 Comprehensive metabolic panel Tiesha J Rosas DO Work Phone: Start: 09-10-2023 Urine test visual color cmprsn meths Tiesha J Rosas DO Work Phone: Start: 09-10-2023 Urnls dip stick/tabl et reagent auto microscopy Tiesha J Rosas DO Work Phone: Start: 07-08-2023 Microscopic observat ion [Identifier] in Cervix by Cyto stain Rosario Escamilla STARTER MECHANIC Work Phone: Start: 10-23-2022 Radiologic exam ches t single view Tiesha J Rosas DO Work Phone: Start: 10-23-2022 Ct head/brain w/o contrast material Tiesha J Rosas DO Work Phone: Start: 10-23-2022 COVID-19, RAPID Tiesha J Rosas DO Work Phone: Start: 10-23-2022 Iaadiadoo influenza Noah eria J Rosas DO Work Phone: Start: 10-23-2022 Basic metabolic pane l calcium total Tiesha J Rosas DO Work Phone: Start: 10-23-2022 C-reactive protein Jave jimbo J Rosas DO Work Phone: Start: 10-23-2022 IMMATURE PLATELET FRACTION Tiesha J Rosas DO Work Phone: Start: 10-22-2022 COVID-19, RAPID Nancy West MD Work Phone: Plan of Treatment Date Care Activity Detail Author Start: 07-08-2028 Screening for malign ant neoplasm of cervix [facility] Start: 07-08-2026 Screening for malign ant neoplasm of cervix [facility] Start: 11-29-2025 Depression Monitoring [facility] Start: 08-30-2025 Depression Screen Depression Screen [facility] Start: 08-24-2025 COVID-19 Vaccine ( season) COVID-19 Vaccine () [facility] Comment on above: Postponed from 01/23 (Patient Refused) Start: 08-24-2025 Depression [facility] Start: 08-24-2025 DTaP/Tdap/Td vaccine (5 - Tdap) DTaP/Tdap/Td vaccine (5 - Tdap) [facility] Comment on above: Postponed from 11/02 (Patient Refused) Start: 01-31-2025 End: 04-02-2026 MG Breast - bilateral Diagnostic Bilateral diagnostic mammogram Imaging Routine Nipple discharge Breast pain Expected: 01/31/2025 (Approximate), Expires: 04/02/2026 [facility] Comment on above: Expected: 01/31/2025 (Approximate), Expires: 04/02/2026 Start: 01-31-2025 End: 01-31-2025 Patient encounter procedure 01/31/2025 9:10 AM EDT Office Visit MYRA RODRIGUEZ [address] [place] [address] Vonda Woods PA [address] [address] Arrived [facility] Comment on above: Arrived Start: 12-23-2024 Influenza vaccination B on [facility] Start: 11-29-2024 End: 11-29-2024 Patient encounter procedure 11/29/2024 11:00 AM EDT Office Visit [facility] [address] [place] [address] [address] [place] [address] Noah Sanabria, DIAGRAMMER - 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 [address] [facility] [facility] [address] [place] [address] Wellness. [facility] Comment on above: Wellness. Start: 11-24-2024 End: 11-24-2024 Patient encounter procedure 11/24/2024 11:30 AM EDT Office Visit [facility] [address] [facility] [address] [place] [address] Jefry Pedraza, DIAGRAMMER-STEEL DIE ENGRAVER [address] [facility] [address] [place] [address] [facility] Start: 11-21-2024 End: 05-23-2025 Lipid 1996 panel - Serum or Plasma Lipid panel Lab Routine Hx of high risk medication treatment Expected: 11/21/2024 (Approximate), Expires: 05/23/2025 [facility] Comment on above: Expected: 11/21/2024 (Approximate), Expires: 05/23/2025 Start: 11-07-2024 End: 11-07-2024 Social Work 11/07/2024 10:30 AM EDT Social Work [facility] [address] [facility] [address] [place] [id number] Obdulio Collins LPC [facility] Start: 11-01-2024 End: 11-01-2024 Patient encounter procedure [facility] Comment on above: Arrived Start: 10-13-2024 End: 10-13-2024 Social Work 10/13/2024 10:00 AM EDT Social Work [facility] [address] [place] [address] [place] [address] Obdulio Collins LPC [facility] Start: 10-11-2024 End: 10-11-2024 Patient encounter procedure 10/11/2024 11:00 AM EDT Office Visit [facility] [address] [place] [address] Jefry Pedraza, DIAGRAMMER-STEEL DIE ENGRAVER [address] [place] [address] [place] [address] Arrived [facility] Comment on above: Arrived Start: 10-04-2024 End: 10-04-2024 Patient encounter procedure 10/04/2024 11:00 AM EDT Office Visit [facility] [address] [place] [address] Jefry Pedraza, DIAGRAMMER-STEEL DIE ENGRAVER [address] [place] [address] [facility] Start: 09-15-2024 End: 09-15-2024 Social Work [facility] Comment on above: Arrived Start: 09-06-2024 End: 09-06-2024 Patient encounter procedure [facility] Comment on above: Arrived Start: 08-31-2024 End: 08-31-2024 Patient encounter procedure 08/31/2024 10:00 AM EDT Office Visit [facility] [address] [place] [id number] Noah Sanabria, DIAGRAMMER - 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 [address] [id number] 1 week labs and fatigue f/u [facility] Comment on above: 1 week labs and fati dillan f/u Start: 08-11-2024 End: 08-11-2024 Social Work 08/11/2024 12:00 PM EDT Social Work [facility] [address] [place] [address] Obdulio Collins, TEDDY [facility] Start: 08-02-2024 End: 08-02-2024 Patient encounter procedure 08/02/2024 10:30 AM EDT Office Visit [facility] [address] [address] [place] [address] Jefry Pedraza, DIAGRAMMER-STEEL DIE ENGRAVER [address] [place] [address] [facility] Start: 07-28-2024 End: 07-28-2024 Patient encounter procedure [facility] Start: 07-27-2024 End: 07-27-2024 Patient encounter procedure 07/27/2024 10:00 AM EST Office Visit [facility] [address] [place] [address] Jefry Pedraza, DIAGRAMMER-STEEL DIE ENGRAVER [address] [place] [address] [facility] Start: 07-14-2024 End: 07-14-2024 Social Work 07/14/2024 10:00 AM EST Social Work [facility] [address] [place] [address] Obdulio Collins, TEDDY [facility] Start: 07-13-2024 End: 07-13-2024 Social Work 07/13/2024 10:30 AM EST Social Work [facility] [address] [place] [address] Obdulio Collins, TEDDY [facility] Start: 06-29-2024 End: 06-29-2024 Social Work 06/29/2024 10:30 AM EST Social Work [facility] [address] [place] [address] Obdulio Collins, TEDDY [facility] Start: 06-15-2024 End: 06-15-2024 Patient encounter procedure 06/15/2024 1:30 PM EST Office Visit [facility] [address] [facility] [address] [place] [address] Jefry Pedraza, DIAGRAMMER-STEEL DIE ENGRAVER [address] [place] [address] [facility] Start: 06-08-2024 End: 06-08-2024 Social Work 06/08/2024 12:30 PM EST Social Work [facility] [address] [facility] [address] [place] [address] Obdulio Collins, DIRECTOR DESIGN Arrived [facility] Comment on above: Arrived Start: 05-23-2024 End: 05-23-2025 CBC W Auto Differential panel - Blood CBC and differential Lab Routine Hx of high risk medication treatment Expected: 05/23/2024 (Approximate), Expires: 05/23/2025 [facility] Healthcare Comment on above: Expected: 05/23/2024 (Approximate), Expires: 05/23/2025 Start: 05-23-2024 End: 05-23-2025 Comprehensive metabolic 2000 panel - Serum or Plasma Comprehensive metabolic panel Lab Routine Hx of high risk medication treatment Expected: 05/23/2024 (Approximate), Expires: 05/23/2025 [facility] Healthcare Comment on above: Expected: 05/23/2024 (Approximate), Expires: 05/23/2025 Start: 05-23-2024 End: 05-23-2025 Thyroid panel with tsh Thyroid panel with tsh Lab Routine Hx of high risk medication treatment Expected: 05/23/2024 (Approximate), Expires: 05/23/2025 [facility] Healthcare Work Phone: Comment on above: Expected: 05/23/2024 (Approximate), Expires: 05/23/2025 Start: 05-23-2024 End: 05-23-2024 Patient encounter procedure 05/23/2024 9:30 AM EST Office Visit [facility] [address] [facility] [address] [place] [address] Jefry Pedraza, DIAGRAMMER-STEEL DIE ENGRAVER [address] [place] [address] [facility] Start: 05-12-2024 End: 05-12-2024 Patient encounter procedure [facility] Start: 05-02-2024 End: 05-02-2024 Patient encounter procedure 05/02/2024 12:30 PM EST Office Visit [facility] [address] [facility] [address] [place] [address] Kayla Narvaez, SAROJ [address] [facility] [address] [place] [address] [facility] Start: 05-02-2024 End: 05-02-2024 Patient encounter procedure 05/02/2024 9:30 AM EST Office Visit [facility] [address] [facility] [address] [place] [address] Jefry Pedraza, DIAGRAMMER-STEEL DIE ENGRAVER [address] [facility] [address] [place] [address] KELI (generalized anxiety disorder) (CMS/HCC) [facility] Comment on above: KELI (generalized anx iety disorder) (CMS/HCC) Start: 04-19-2024 End: 04-19-2024 Professional / ancillary services management 04/19/2024 11:00 AM EST Ancillary Procedure [facility] [address] [place] [address] [place] [id number] [facility] Start: 04-13-2024 End: 04-13-2024 Patient encounter procedure [facility] Comment on above: Class 2 obesity due to excess calories without serious comorbidity with body mass index (BMI) of 35.0 to 35.9 in adult (Primary Dx); Tobacco dependence Start: 04-12-2024 End: 04-12-2025 US for US PELVIS-TRANSVAG IF INDICATED Imaging Routine Pelvic pain in female Expected: 04/12/2024 (Approximate), Expires: 04/12/2025 [facility] Comment on above: Expected: 04/12/2024 (Approximate), Expires: 04/12/2025 Start: 03-30-2024 End: 03-30-2024 Patient encounter procedure 03/30/2024 10:00 AM EST Office Visit [facility] [address] [place] [address] Rosario Escamilla, SAROJ [address] [place] [address] [facility] Start: 03-08-2024 End: 03-08-2024 Patient encounter procedure 03/08/2024 9:00 AM EDT Office Visit [facility] [address] [place] [address] Rosario Escamilla, SAROJ [address] [place] [id number] [facility] Start: 03-02-2024 End: 03-02-2024 Patient encounter procedure 03/02/2024 9:20 AM EDT Office Visit [facility] [address] [place] [address] Rosario Escamilla, STARTER MECHANIC [address] [place] [address] [facility] Start: 02-18-2024 End: 02-18-2024 Patient encounter procedure 02/18/2024 1:20 PM EDT Office Visit [facility] [address] [place] [address] Rosario Escamilla, STARTER MECHANIC [address] [place] [address] [facility] Start: 01-24-2024 COVID-19 Vaccine () COVID-19 Vaccine () [facility] Start: 12-24-2023 Influenza vaccination [facility] Start: 11-23-2023 End: 11-23-2023 Patient encounter procedure 11/23/2023 3:20 PM EDT Office Visit [facility] [address] [place] [address] Rosario Escamilla, STARTER MECHANIC [address] [place] [address] [facility] Start: 11-22-2023 Influenza vaccination Influenza Vacc ine (#1) [facility] Comment on above: Postponed from 01/23 (Patient Refused) Start: 07-24-2023 Screening for malign ant neoplasm of cervix Cervical Cancer Screening [facility] Comment on above: Postponed from 11/02 (Other Patient Reasons) Start: 12-23-2022 Influenza vaccination Flu vacc ine (Season Ended) [facility] Start: 11-02-2021 Screening for malign ant neoplasm of cervix [facility] Start: 11-02-2012 Screening for malign ant neoplasm of cervix Pap smear [facility] Start: 11-02-2010 DTaP/Tdap/Td vaccine (1 - Tdap) DTaP/Tdap/Td vaccine (1 - Tdap) [facility] Start: 11-02-2009 Hepatitis C screening Hepatitis C sc reen [facility] Start: 11-02-2006 HIV screening HIV screen [facility] Start: 11-02-2004 Varicella vaccine (1 of 2 - 13+ 2-dose series) Varicella vaccine (1 of 2 - 13+ 2-dose series) [facility] Start: 03-04-2004 Hepatitis B vaccine (2 of 3 - 3-dose series) Hepatitis B vaccine (2 of 3 - 3-dose series) [facility] Start: 2003 Depression Screen Depression Screen [facility] Start: 11-02-2002 DTaP/Tdap/Td vaccine (5 - Tdap) DTaP/Tdap/Td vaccine (5 - Tdap) [facility] Start: 11-02-1997 Pneumococcal 0-64 ye ars Vaccine (1 - PCV) Pneumococcal 0-64 years Vaccine (1 - PCV) [facility] Start: 11-02-1992 Varicella vaccine (1 of 2 - 2-dose childhood series) Varicella vaccine (1 of 2 - 2-dose childhood series) [facility] Start: 05-04-1992 COVID-19 Vaccine (#1) COVID-19 Vacci ne (#1) [facility] Start: 1991 Hepatitis B vaccine (1 of 3 - 3-dose series) Hepatitis B vaccine (1 of 3 - 3-dose series) [facility] Aerobic culture Aerobic culture Microbiology Routine Nipple discharge Ordered: 01/31/2025 [facility] Comment on above: Ordered: 01/31/2025 Anaerobic culture Anaerobic cult ure Microbiology Routine Nipple discharge Ordered: 01/31/2025 [facility] Comment on above: Ordered: 01/31/2025 Bacteria identified in Urine by Culture Urine culture Microbiology Routine Pelvic pain in female Ordered: 04/12/2024 [facility] Comment on above: Ordered: 04/12/2024 Bacteria identified in Urine by Culture Urine culture Microbiology Routine UTI symptoms Ordered: 01/31/2025 [facility] Comment on above: Ordered: 01/31/2025 CBC panel - Blood by Automated count CBC Lab Routine Pelvic pain in female Ordered: 04/12/2024 [facility] Work Phone: Comment on above: Ordered: 04/12/2024 CHLAMYDIA TRACHOMATI S (GENITO/STI) CHLAMYDIA TRACHOMATIS (GENITO/STI) Lab Routine Vaginal itching Ordered: 01/31/2025 [facility] Comment on above: Ordered: 01/31/2025 Comprehensive metabo lic 2000 panel - Serum or Plasma Comprehensive metabolic panel Lab Routine Pelvic pain in female Ordered: 04/12/2024 [facility] Comment on above: Ordered: 04/12/2024 Cytology Cervical or vaginal smear or scraping study Pap Smear Pathology and Cytology Routine Well woman exam with routine gynecological exam Ordered: 07/08/2023 [facility] Work Phone: Comment on above: Ordered: 07/08/2023 Human papilloma viru s DNA [Presence] in Unspecified specimen by Probe with amplification HPV DNA probe, amplified Microbiology Routine Well woman exam with routine gynecological exam Ordered: 07/08/2023 [facility] Comment on above: Ordered: 07/08/2023 Neisseria gonorrhoea e DNA [Presence] in Unspecified specimen by AMPARO with probe detection Neisseria gonorrhea DNA probe, direct Lab Routine Vaginal itching Ordered: 01/31/2025 [facility] Comment on above: Ordered: 01/31/2025 End: 10-23-2022 Respiratory Panel, Molecular, with COVID-19 (Restricted: peds pts or suitable admitted adults) [facility] Work Phone: Comment on above: One Time for 1 Occur rences starting 10/23/2022 until 10/23/2022 End: 09-10-2023 [facility] Comment on above: Once for 1 Occurrenc es starting 09/10/2023 until 09/10/2023 SURESWAB(R) ADVANCED VAGINITIS PLUS, TMA SURESWAB(R) ADVANCED VAGINITIS PLUS, TMA Pathology and Cytology Routine Vaginal itching Ordered: 01/31/2025 [facility] Work Phone: Comment on above: Ordered: 01/31/2025 Immunizations Immunization Date Immunization Notes Care Provider Bridgett [facility] 02-05-2004 hepatitis B vaccine, pediatric or pediatric/adolescent dosage Rosarioderek Escamilla STARTER MECHANIC Work Phone: [facility] 09-19-1996 diphtheria, tetanus toxoids and acellular pertussis vaccine, unspecified formulation Rosario Francine STARTER MECHANIC Work Phone: [facility] 09-19-1996 measles, mumps and rubella virus vaccine Rosario Bettyz STARTER MECHANIC Work Phone: [facility] 09-19-1996 trivalent poliovirus vaccine, live, oral Rosario Bettyz STARTER MECHANIC Work Phone: [facility] 02-12-1994 diphtheria, tetanus toxoids and pertussis vaccine Rosario Ingridholz STARTER MECHANIC Work Phone: [facility] 02-12-1994 trivalent poliovirus vaccine, live, oral Rosario Bettyz STARTER MECHANIC Work Phone: [facility] 09-30-1993 diphtheria, tetanus toxoids and pertussis vaccine Rosario Aichholz STARTER MECHANIC Work Phone: [facility] 09-30-1993 haemophilus influenz ae type b vaccine, conjugate unspecified formulation Rosario Aichholz STARTER MECHANIC Work Phone: [facility] 09-30-1993 measles, mumps and rubella virus vaccine Rosario Aichholz STARTER MECHANIC Work Phone: [facility] 09-30-1993 trivalent poliovirus vaccine, live, oral Rosario Aichholz STARTER MECHANIC Work Phone: [facility] 04-16-1992 diphtheria, tetanus toxoids and pertussis vaccine Rosario Aichholz STARTER MECHANIC Work Phone: [facility] 04-16-1992 haemophilus influenz ae type b vaccine, conjugate unspecified formulation Rosario Aichholz STARTER MECHANIC Work Phone: [facility] 04-16-1992 trivalent poliovirus vaccine, live, oral Rosario Aichholz STARTER MECHANIC Work Phone: [facility] Healthcare Payers Date Payer Category Payer Self-pay 2022 Unknown [facility] MEDICAID [id number] 2022-Present [phone] [address] [place] [address] [id number] 2022 Medicaid [id number] 2022 Private Health Insurance [employer] [id number] 1991 Unknown [id number] 2.16.840.1.732200.3.579.2 .593 1991 Unknown [id number] 2.16.840.1.114429.3.579.2 .593 1991 Unknown [id number] 2.16.840.1.210949.3.579.2 .593 1991 Unknown [id number] 2.16.840.1.415158.3.579.2 .593 1991 Unknown [id number] 2.16.840.1.380195.3.579.2 .593 1991 Unknown [id number] 2.16.840.1.990695.3.579.2 .593 1991 Unknown [id number] 2.16.840.1.945288.3.579.2 .593 1991 Unknown [id number] 2.16.840.1.272352.3.579.2 .593 1991 Unknown [id number] 2.16.840.1.628657.3.579.2 .593 1991 Unknown [id number] 2.16.840.1.012727.3.579.2 .1286 1991 Unknown [id number] 2.16.840.1.425800.3.579.2 .1259 1991 Unknown [id number] 2.16.840.1.600321.3.579.2 .1259 1991 Unknown [id number] 2.16.840.1.251554.3.579.2 .1259 1991 Unknown [id number] 2.16.840.1.284025.3.579.2 .1259 1991 Unknown [id number] 2.16.840.1.194332.3.579.2 .1259 1991 Unknown [id number] 2.16.840.1.541483.3.579.2 .1258 1991 Unknown [id number] 2.16.840.1.938197.3.579.2 .1258 1991 Unknown [id number] 2.16.840.1.513869.3.579.2 .1258 1991 Unknown [id number] 2.16.840.1.366280.3.579.2 .1258 1991 Unknown [id number] 2.16.840.1.341025.3.579.2 .1258 1991 Unknown [id number] 2.16.840.1.694062.3.579.2 .1258 1991 Unknown [id number] 2.16.840.1.961753.3.579.2 .1258 1991 Unknown [id number] 2.16840.1.136149.3.579.2 .1258 1991 Unknown [id number] 2.16.840.1.908567.3.579.2 .1258 1991 Unknown [id number] 2.16.840.1.127314.3.579.2 .1258 1991 Unknown [id number] 2.16.840.1.314065.3.579.2 .1258 1991 Unknown [id number] 2.16.840.1.314691.3.579.2 .1258 1991 Unknown [id number] 2.16.840.1.360440.3.579.2 .1258 1991 Unknown [id number] 2.16.840.1.705238.3.579.2 .1258 1991 Unknown [id number] 2.16.840.1.784914.3.579.2 .1258 1991 Unknown [id number] 2.16.840.1.285918.3.579.2 .12581992 Unknown [id number] 2.16.840.1.472188.3.579.2 .173 1991 Unknown [id number] 2.16.840.1.350661.3.579.2 .173 1991 Unknown [id number] 2.16.840.1.550451.3.579.2 .173 1991 Unknown [id number] 2.16.840.1.155959.3.579.2 .173 1991 Unknown [id number] 2.16.840.1.733710.3.579.2 .173 1991 Unknown [id number] 2.16.840.1.757588.3.579.2 .173 1991 Unknown [id number] 2.16.840.1.953464.3.579.2 .173 1991 Unknown [id number] 2.16.840.1.699167.3.579.2 .173 1959 Medicaid [id number] 1959 Unknown [id number] 2.16.840.1.750094.19 Unknown [id number] 2.16.840.1.522448.3.579.2 .531 Unknown [id number] Unknown 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 [id number] Social History Date Type Detail Facility Unknown if ever smoked [facility] Start: 05-21-2023 End: 08-02-2024 Sex Assigned At [facility] Start: 10-22-2022 End: 05-02-2024 Tobacco smoking status HIIS Smokes tobacco daily [employer] Phone: Start: 05-25-2009 End: 05-25-2023 History of tobacco use Cigarette Smoker [facility] Phone: Start: 10-22-2022 End: 05-02-2024 Tobacco use and exposure Smokeless tobacco non-user [facility] Work Phone: Start: 10-22-2022 End: 10-23-2022 History SDOH Alcohol Frequency 1 [facility] Work Phone: Start: 1991 Sex Assigned At Not on file [facility] Work Phone: Start: 10-23-2022 History SDOH Alcohol Std Drinks 0 [facility] Phone: Start: 05-19-2023 End: 08-02-2024 Cigarettes smoked current (pack per day) - Reported 0.5 [facility] Start: 05-26-2023 End: 11-29-2024 Tobacco smoking status [facility] Ex-smoker [facility] Start: 05-25-2009 End: 05-25-2023 History of tobacco use Current smoker [facility] Start: 09-10-2023 End: 05-31-2024 Alcohol intake Lifetime non-drinker (finding) [facility] How often to you hav e a drink containing alcohol? Never [facility] How many standard drinks containing alcohol do you have on a typical day? Patient does not drink [facility] Start: 1990 Sex Assigned At Female [facility] Start: 03-02-2024 End: 11-01-2024 Alcoholic beverage intake Ex-drinker (finding) [facility] Start: 09-21-2023 Alcohol Comment caffine: 1 cup of coffee daily and soda/energy drinks twice a week [facility] Start: 05-02-2024 Education 15 [facility] Has the [employer], [employer], or [employer] threatened to shut off services in your home in past 12Mo No [employer] (I/We) worried wheth er (my/our) food would run out before (I/we) got money to buy more. Never true [employer] Start: 07-06-2012 Sex Female (finding) [facility] Start: 12-27-2024 Gender identity Identifies as female gender (finding) [facility] Start: 12-27-2024 Sexual orientation Heterosexual (finding) [facility] Functional Status Date Assessment Result Facility 08-24-2024 Generalized anxiety disorder 7 item (KELI-7) [facility] Clinical Notes 06-04-2021 to 01-31-2025 [facility] - 01/31/2025 9:10 AM EDTDischarge InstructionsAttachmentsFetran Pedraza, DIAGRAMMER-STEEL DIE ENGRAVER - 11/01/2024 11:30 AM Adrianna Nuñez - 10/11/2024 11:00 AM EDTDischarge Instructions Note Date & Type Note Facility 01-31-2025 History of Present illness Narrative Reason for Appointment: Patient ID: Lina Alcantar is a 34 y.o. female who presents for Bilat. Breast Leakage and BV Patient presents today for Acute Visit. MEDICATIONS Current Outpatient Medications Medication Instructions ARIPiprazole (ABILIFY) 5 mg, Oral, Daily fluconazole (DIFLUCAN) 150 mg, Oral, Once, Repeat in 7 days if symptoms persist. Levonorgestrel (MIRENA, 52 MG, IU) by Intrauterine route sertraline (ZOLOFT) 50 mg, Oral, Daily traZODone (DESYREL) 50 mg, Oral, Nightly PRN ALLERGIES Allergies Allergen Reactions Strattera [Atomoxetine] GI intolerance PROBLEMS Active Ambulatory Problems Diagnosis Date Noted Lupus 05/02/2019 KELI (generalized anxiety disorder) 05/20/2023 Fibromyalgia 05/21/2023 Class 2 obesity due to excess calories without serious comorbidity in adult 05/21/2023 Thrombocytopenia 09/21/2023 RLS (restless legs syndrome) 09/21/2023 Chronic fatigue 10/26/2023 Tobacco dependence 12/09/2023 Dizziness and giddiness 02/11/2024 Insomnia due to other mental disorder 05/02/2024 Attention deficit hyperactivity disorder (ADHD) 09/18/2024 Bipolar 1 disorder (HCC) 09/18/2024 Resolved Ambulatory Problems Diagnosis Date Noted Ear itching 05/21/2023 UTI symptoms 09/21/2023 Encounter for routine checking of intrauterine contraceptive device (IUD) 10/26/2023 Abnormal weight gain 12/09/2023 COVID 02/18/2024 Subacute maxillary sinusitis 02/18/2024 Non-recurrent acute suppurative otitis media of right ear without spontaneous rupture of tympanic membrane 02/18/2024 Acute non-recurrent pansinusitis 04/28/2024 Past Medical History: Diagnosis Date Abnormal Pap smear of cervix 2019 Addiction to drug ([facility]) Anxiety Bacterial vaginosis Depression Fatigue Fibromyalgia, primary Headache History of drug use Hx of psychiatric hospitalization Lumbar back pain Migraine Mood disorder Neurocardiogenic syncope Obesity (BMI 30-39.9) Rash of foot Restless leg 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[facility]) S/P tubal ligation Tobacco user HISTORY PAST MEDICAL HISTORY SOCIAL HISTORY Past Medical History: Diagnosis Date Abnormal Pap smear of cervix 2019 Addiction to drug ([facility]) Anxiety Bacterial vaginosis Class 2 obesity due to excess calories without serious comorbidity in adult 05/21/2023 Depression Ear itching 05/21/2023 Fatigue Fibromyalgia Fibromyalgia 05/21/2023 Fibromyalgia, primary Headache History of drug use Hx of psychiatric hospitalization X2 [facility] 1 [place] 1 pink slip accidental OD Lumbar back pain Lupus Migraine Mood disorder Neurocardiogenic syncope Obesity (BMI 30-39.9) Rash of foot Restless leg 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[facility]) S/P tubal ligation Tobacco user Social History [...] Currently Types: Heroin, Oxycodone, Hydrocodone, Cocaine, Methamphetamines FAMILY HISTORY Family History Problem Relation Name Age of Onset Mental illness Mother Diane alcantar Alcohol abuse Mother Diane jackie Drug abuse Mother Diane alcantar Anxiety disorder Mother Diane alcantar Depression Mother Diane alcantar Restless legs syndrome Mother Diane alcantar Stroke Mother Diane alcantar Rheum arthritis Mother Diane alcantar Mental illness Father Torres Jackie Alcohol abuse Father Torres Alcantar Drug abuse Father Torres Alcantar Anxiety disorder Father Torres Alcantar Depression Father Torres Alcantar Restless legs syndrome Father Torres Alcantar Anxiety disorder Sister Sandee alcantar ADD / ADHD Sister Sandee alcantar Stroke Maternal Grandmother Taty bingham Diabetes Maternal Grandmother Taty bingham Heart failure Maternal Grandmother Taty bingham SURGICAL HISTORY Past Surgical History: Procedure Laterality Date ABDOMINAL SURGERY LAPAROSCOPY DIAGNOSTIC / BIOPSY / ASPIRATION / [...] Appearance: Normal appearance. She is normal weight. Genitourinary: Genitourinary Comments: Bilateral breast tenderness, nipple discharge from right Breasts: Right: Nipple discharge present. HENT: Head: Normocephalic. Cardiovascular: Rate and Rhythm: [...] reviewed. Vitals: Estimated body mass index is 35.69 kg/m as calculated from the following: Height as of 04/28/24: 5' 3 . Weight as of this encounter: 201 lb 8 oz. BP: 120/82 No LMP recorded. ASSESSMENT & PLAN ICD-10-CM 1. Vaginal itching N89.8 SURESWAB(R) ADVANCED VAGINITIS PLUS, TMA CHLAMYDIA TRACHOMATIS (GENITO/STI) Neisseria gonorrhea DNA probe, direct fluconazole (Diflucan) 150 MG tablet 2. Nipple discharge N64.52 Anaerobic culture Aerobic culture Bilateral diagnostic mammogram Bilateral diagnostic mammogram 3. Breast pain N64.4 Bilateral diagnostic mammogram Bilateral diagnostic mammogram 4. UTI symptoms R39.9 Urine culture Nipple discharge from right nipple, bilateral discomfort to breast noted. We will order diagnostic with us if indicated. Patient will be placed on augmentin. Pt also here for ER follow up, vaginal cultures and ua obtained today. We will follow up when cultures completed Documented by [facility] on behalf of: [facility] documented in this encounter [facility] 01-12-2025 Hospital Discharge instructions Meredith Long APRN - CNP - 01/12/2025 2:18 PM EDT Antibiotics as directed, do not drink alcohol while taking the Flagyl, try [id number] d-mannose supplement for urinary health, increase fluid intake, follow-up with primary care, return for worsening symptoms The following attachments cannot be sent through Care Everywhere.Bacterial Vaginosis (Kyrgyz)documented in this encounter [facility] 11-01-2024 History of Present illness Narrative Images from the original note were not included. HPI: Lina Alcantar is a 33 y.o. female with a history of KELI, Bipolar Disorder, Patient is here today for follow-up. Patient under stress as boyfriend was in severe car accident. Feeling more depressed. Ded start [place]. Thoughts not good enough, can't keep up, feeling, feels like given up. Took strattera and had severe heart burn. So discontinued. She tried for 6 days. Managing ill partner, work and school. On zoloft mood is less anxious. Difficulty starting projects and not finishing tasks at work and home. Denies depression. Feels overwhelmed with current life stressors. Sleeping [address] Flores-sleep apnea. Hx of abuse of substances. Hx of opiate abuse. No Medical problems since last visit. Difficulty focusing. In school for [employer]. Difficulty reading and comprehending. Psychosocial stressors include: boyfriends injury SUBJECTIVE: PAST MEDICAL HISTORY: Past Medical History: Diagnosis Date Addiction to drug ([facility]) Anxiety Class 2 obesity due to excess calories without serious comorbidity in adult 05/21/2023 Depression ([facility]) Ear itching 05/21/2023 Fatigue Fibromyalgia Fibromyalgia 05/21/2023 Headache History of drug use Hx of psychiatric hospitalization X2 [facility]CM 1 [place] 1 pink slip accidental OD Lumbar back pain Mood disorder ([facility]) Neurocardiogenic syncope Obesity (BMI 30-39.9) Rash of foot Restless leg 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 Tobacco user MEDICATIONS: Current Outpatient Medications Medication Instructions ARIPiprazole (ABILIFY) 5 mg, Oral, Daily DULoxetine (CYMBALTA) 30 mg, Oral, Daily, Do not crush or chew. gabapentin (NEURONTIN) 300 mg, Oral, 2 times daily Levonorgestrel (MIRENA, 52 MG, IU) by Intrauterine route traZODone (DESYREL) 50 mg, Oral, Nightly PRN ALLERGIES: No Known Allergies SURGICAL HISTORY: Past [...] Currently Types: Heroin, Oxycodone, Hydrocodone, Cocaine, Methamphetamines Patient Care Team: Montana Franklin DO as PCP - [facility] Rosario Escamilla NP as Referring Physician (Nurse Practitioner) CHARLI YusufSTEEL DIE ENGRAVER as Nurse Practitioner (Psychiatry) Obdulio Collins LPC as Multiple Slide Operator (Behavioral Health) PSYCHIATRIC REVIEW OF SYMPTOMS AND MENTAL STATUS EXAM ROS: Appearance Appearance: Normal grooming and hygiene. Appears stated age. Dressed appropriately for weather. Behavior Calm, cooperative, pleasant. Good posture. Psychomotor Activity Intact. No abnormal movements noted. Eye contact Good Speech Normal, clear, regular rate, rhythm and volume Affect Blunted Mood over whelmed Thought Process Organized, logical, and goal directed Thought Content: Denies suicidal and homicidal ideation. Perception: Denies auditory or visual hallucinations. No evidence of delusions. Denies derealization and depersonalization. Cognition Alert ,poor focus Memory Immediate, recent and remote memory intact Insight FairAcknowledges predominant symptoms of illness and need for treatment Judgement Good. Able to make reasonable life decisions. OBJECTIVE: Visit Vitals OB Status Having periods [...] results found for: TRIG ASSESSMENT AND PLAN: Impression: This is a who was referred by her primary care doctor to be evaluated for medications patient has a history of depression and anxiety has also been diagnosed with bipolar in the past. Patient has not been treated recently for bipolar disorder she did meet criteria for bipolar disorder and anxiety. We will initiate a mood stabilizer to target her mood. Hx of abuse of opiates, valium. Klonopin. Xanax, cocaine. Has moderate symptoms onBARRS, Had trouble in school with grades Did struggle through elementary and high school. Was in special classes -in miah year had Freshman classes. Diagnosis: Bipolar Disorder most recent mixed General Anxiety Disorder Insomnia ADHD Hx of Opiate abuse-in remission,Poly substance abuse. Sober. Medications Zoloft 50mg po every day Abilify 5mg daily Trazadone 50g po at bedtime prn Was started on qelbree was started last visited -discontinue dt worsening of depression and possible headaches -[place] it may have helped with focus Also discussed med compliance Psychotherapy -with Obdulio Nunez BAARS IV to complete-Moderately symptomic. Treatment Plan/Recommendations: - Continue counseling for additional mental health support and treatment. Seeing [facility] - [facility] in weeks. 3 Discussed any medication changes and follow-up plan with patient. Encouraged patient to call office sooner if symptoms worsen or if any questions/concerns arise. - Call if worsening of depression, anxiety or eliud. Patient was seen Face to Face, Total time spent with patient was 25 min which includes reviewing chart documents, previous notes/records, counseling and discussion with patient and/or coordination of care as described above. documented in this encounter [facility] 10-11-2024 History of Present illness Narrative Wants to discuss a work note documented in this encounter [facility] 06-30-2024 History of Present illness Narrative Patient would like to discuss her anxiety. Patient reports feeling like she's on a roller coaster. Lina Alcantar is a 33 y.o. female presents for Medication Management. HPI: Patient is here for medication follow up. Patient states she feels abilify has helped since last appt.Feels more depressed related to stressors. Mood is reported as depressed and rates 6-7 (10worst). Hopeless, sad most of time. Trigger bills and relationship, situation. Anxiety is 8-9 (10worst). Sleeping 5 hours. Wanting something to help with staying awake. Medication compliant. No reported side effects. Denies abuse of substances. Medical problems since last visit. Did do a sleep study, dx with sleep apnea. Psychosocial stressors include relationship with significant other. Started a new position and started day shift. Going back on second shift. Had to take two calls during appt regarding ill child needed picked up from school. SUBJECTIVE: PAST MEDICAL HISTORY: Past Medical History: Diagnosis Date Addiction to drug ([facility]) Anxiety Class 2 obesity due to excess [...] Hydrocodone, Cocaine, Methamphetamines Depression: Not at risk (05/23/2024) PHQ-2 PHQ-2 Score: 1 REVIEW OF SYMPTOMS - MENTAL STATUS EXAM Appearance Behavior . No abnormal movements. Speech soft spoken Affect Blunted Mood Anxious and Depressed Thought Process Organized, logical, and goal directed Thought Content Denies suicidal and homicidal ideation Perception Denies auditory and visual hallucinations. No evidence of delusions. Orientation Appropriate to age, Person, Place, and Time Memory/Concentration Immediate, recent and remote memory intact Insight/Judgement Fair OBJECTIVE: Visit Vitals OB Status [...] Opiate abuse-in remission Medications Decrease Cymbalta 30mg po every day -consider a different antidepressant-patient hoping to be able to eventually get off of this med due to Brain zaps when she misses. Abilify 5mg daily Trazadone 50g po at bedtime Psychotherapy -with Bodulio Given BAARS IV to complete-will evaluate mood Patient was seen Face to Face, Reviewed chart documents and documentation, Visit time : 40min F/U 4 weeks documented in this encounter [facility] 05-31-2024 Hospital Discharge instructions Rosalie Nagy MD - 05/31/2024 10:04 PM EST Take [...] sent through Care Everywhere.URI (Upper Respiratory Infection) (Kyrgyz)documented in this encounter [facility] 05-23-2024 History of Present illness Narrative Images [...] Medical History: Diagnosis Date Addiction to drug ([facility]) Anxiety Class 2 obesity due to excess calories without serious comorbidity in adult 05/21/2023 Depression ([facility]) Ear itching 05/21/2023 Fatigue Fibromyalgia Fibromyalgia 05/21/2023 Headache History of drug use Hx of psychiatric hospitalization X2 [facility] 1 [place] 1 pink slip accidental OD Lumbar back pain Mood disorder ([facility]) Neurocardiogenic syncope Obesity (BMI 30-39.9) Rash of [...] experienced blurred vision and dry eyes with Johannalar called in Thursday. And stopped it then documented in this encounter [facility] 05-02-2024 History of Present illness Narrative NEW [...] disorder when patient was incarcerated. Treated by [facility]. She remembers seeing a counselor but does not remember if they were prescribing medications. Med trials Include prozac, celexa-thinks made her worse was In closet so depressed.Duloxetine, risperdal. Current medications are Cymbalta and gabapentin. Patient reports a history of psychiatric hospitalizations. Patient states she ended up in [facility] in [place] when her counselor suspect that she was [...] Legal hx of Robbing houses. Went to Prison February 2014 -breaking probation. Went thru detox [...] has since signed off on custody.Middle child, Liam his father not in his life Youngest son dad Is her significant other. 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 Stressors [...] documentation 75 min documented in this encounter [facility] 04-28-2024 History of Present illness Narrative Associated Problem(s): Acute non-recurrent pansinusitis Was in [place] [facility] last week, No better with zithromax-did [...] of the risks of continued smoking: stroke, [place], all forms of cancer, lung disease, and [...] of the risks of continued smoking: stroke, [place], all forms of cancer, lung disease, and . Options for quitting smoking include: cold turkey, hypnosis, acupuncture, nicotine replacement meds (gum, lozenges, and patches), Buproprion, and Varenicline. At this time pt is encouraged to evaluate their goals for wanting to quit smoking, and reach out to provider when ready to start this process documented in this encounter [facility] 04-28-2024 Instructions Rosario Escamilla NP - 04/28/2024 11:30 AM EST Finish atb, steroid medrol dose pack, also cough syrup While taking the steroids and cough syrup, hold the adipex and once done with steroids and cough med then resume adipex May try Albaro Med nasal irrigation as well: use distilled water documented in this encounter [facility] 04-22-2024 Hospital Discharge instructions Sobia Colón APRN - CNP - 04/22/2024 3:42 [...] cannot be sent through Care Everywhere.Sinusitis: Acute (Kyrgyz)Cough: Chronic (Kyrgyz)documented in this encounter [facility] 04-13-2024 History of Present illness Narrative Associated [...] drinks. Associated Problem(s): KELI (generalized anxiety disorder) (CMS/HCC) We discussed that she may have depression/anxiety, [...] work and appt done yesterday with vonda woods She does not have a UTI Images [...] hx: hx of addiction, then went to senior care for 5 years, while she was in senior care she was diagnosed as manic bipolar. She [...] of the risks of continued smoking: stroke, [place], all forms of cancer, lung disease, and [...] of the risks of continued smoking: stroke, [place], all forms of cancer, lung disease, and . Options for quitting smoking include: cold turkey, hypnosis, acupuncture, nicotine replacement meds (gum, lozenges, and patches), Buproprion, and Varenicline. At this time pt is encouraged to evaluate their goals for wanting to quit smoking, and reach out to provider when ready to start this process documented in this encounter [facility] 04-13-2024 Instructions Rosario Escamilla NP - 04/13/2024 11:00 AM EST Refer to psych for evaluation for proper diagnosis and medication management documented in this encounter [facility] 04-12-2024 History of Present illness Narrative Reason [...] Noted Lupus 05/02/2019 KELI (generalized anxiety disorder) ([facility]) 05/20/2023 Ear itching 05/21/2023 Fibromyalgia 05/21/2023 Class 2 obesity due to excess calories without serious comorbidity in adult 05/21/2023 Thrombocytopenia ([facility]) 09/21/2023 RLS (restless legs syndrome) 09/21/2023 Chronic [...] drug use Lumbar back pain Mood disorder ([facility]) Neurocardiogenic syncope Obesity (BMI 30-39.9) Rash of [...] calculated from the following: Height as of 03/02/24: 5' 3 . Weight as of this [...] of: [facility] House documented in this encounter [facility] 03-02-2024 History of Present illness Narrative Associated Problem(s): KELI (generalized anxiety disorder) ([facility]) No med dose changes at this time [...] This Visit KELI (generalized anxiety disorder) (CMS/HCC) No med dose changes at this time [...] comorbidity in adult documented in this encounter [facility] 02-18-2024 History of Present illness Narrative Associated [...] 875-125 MG tablet documented in this encounter [facility] 09-10-2023 Hospital Discharge instructions Tiesha Rosas DO - 09/10/2023 7:13 PM EDT Tylenol as needed. Follow-up with your doctor in regards to your low platelet counts. Return if you have any worsening symptoms. Heating pad or ice pack may also be helpful. Avoid ibuprofen or Aleve. The following attachments cannot be sent through Care Everywhere.Flank Pain (Kyrgyz)documented in this encounter [facility] 07-08-2023 History of Present illness Narrative Reason for Appointment: Patient ID: Lina Alcantar is a 32 y.o. female who presents for Well Women Visit and Pre-op Visit Patient presents today for a Pre Op appointment. Patient is scheduled to undergo Diagnostic Laparoscopy, possible LINDA, possible FOE, possible BSO on 07/24/[address] Franklin at [facility] Current Medications: has a current medication list which includes the following prescription(s): acetaminophen, acetaminophen, duloxetine, gabapentin, and lorazepam. Medical History: Active Ambulatory Problems Diagnosis Date Noted Lupus ([facility]) 05/02/2019 KELI (generalized anxiety disorder) ([facility]) 05/20/2023 Ear itching 05/21/2023 Fibromyalgia 05/21/2023 Class 2 obesity due to excess calories without serious comorbidity in adult 05/21/2023 Resolved Ambulatory Problems Diagnosis Date Noted No Resolved Ambulatory Problems Past Medical History: Diagnosis Date Fatigue History of drug use Lumbar back pain Mood disorder ([facility]) Neurocardiogenic syncope Obesity (BMI 30-39.9) Rash of [...] nursing note reviewed. Exam conducted with a dowel pin worker present. Vitals: Estimated body mass index is [...] reviewed, and patient is to proceed to [facility] OR. Follow Up: Patient is to follow up between 1-2 weeks post operative to assess proper healing and recovery from procedure. Documented by: Aurora Valle LPN on behalf of Montana Franklin DO documented in this encounter [facility] 10-23-2022 Hospital Discharge instructions Tiesha Rosas DO - 10/23/2022 10:09 AM EDT Continue [...] us to take care of you at [facility]. In the next few days you may receive a survey by mail or e-mail asking about the care you received during this visit. Please complete this if you are able, as this feedback helps us provide the best care possible. The following attachments cannot be sent through Care Everywhere.Migraine Headache (Kyrgyz)[facility] Hospital Discharge instructions Nancy West MD - 10/22/2022 11:37 AM EDT Continue current medications as prescribed. Take Augmentin as directed until complete. Make sure that you stay well-hydrated. Tylenol and or Motrin as needed for pain at home. Use Bylas in place of Tylenol for pain not [...] be sent through Care Everywhere.Acute Sinusitis: Video (Kyrgyz)Headache (Kyrgyz)documented in this encounter [facility] [employer] Phone: 12-22-2021 Evaluation note Encounter Date Diagnosis Assessment Notes Nov, Fever (ICD-10 - R50.9) Nov, Viral URI (ICD-10 - J06.9) Advised patient that COVID/Influenza A/B PCR test was negative today. [place] test negative. Advised patient that will treat [...] Nov, Fatigue, unspecified type (ICD-10 - R53.83) [facility] Other 01-11-2022 Evaluation note* Encounter Date Diagnosis [...] Patient care instructions given in writting by [facility] Care At Home document [facility] Other Evaluation note* Diagnosis Nonintractable headache, unspecified chronicity pattern, unspecified headache type- Primary Acute recurrent sinusitis, unspecified location documented in this encounter [employer] Phone: evaluation note* Diagnosis Viral syndrome- Primary Unspecified viral infection, in conditions classified elsewhere and of unspecified site Migraine without aura and with status migrainosus, not intractable Migraine without aura, without mention of intractable migraine with status migrainosus Sinus congestion Other diseases of nasal cavity and sinuses documented in this encounter [employer] Phone: evaluation note* Diagnosis Well woman exam with routine gynecological exam Routine gynecological examination Preop examination Unspecified pre-operative examination Menorrhagia with irregular cycle Pelvic pain in female Unspecified symptom associated with female genital organs documented in this encounter [facility] HealthcareEvaluation [facility]* Diagnosis Right flank pain- Primary Abdominal pain, unspecified site documented in this encounter [employer] HEALTHEvaluation noteNo assessment information available [facility] Work Phone: Evaluation note* Diagnosis Fibromyalgia- Primary Unspecified myalgia and myositis KELI (generalized anxiety disorder) ([facility]) Generalized anxiety disorder Class 2 obesity due to excess calories without serious comorbidity in adult, unspecified BMI documented in this encounter [facility]* Diagnosis Fibromyalgia- Primary Unspecified myalgia and myositis documented [facility]* Diagnosis KELI (generalized anxiety disorder) ([facility])- Primary Generalized anxiety disorder Ear itching Fibromyalgia Unspecified myalgia and myositis Class 2 obesity due to excess calories without serious comorbidity in adult, unspecified BMI Thrombocytopenia ([facility])- Primary Unspecified thrombocytopenia Fibromyalgia Unspecified myalgia and myositis Class 2 obesity due to excess calories without serious comorbidity in adult, unspecified BMI KELI (generalized anxiety disorder) ([facility]/H[facility]) Generalized anxiety disorder UTI symptoms RLS (restless legs syndrome) Restless legs syndrome (RLS) KELI (generalized anxiety disorder) (CMS/HCC)- Primary Generalized [...] myalgia and myositis KELI (generalized anxiety disorder) ([facility]) Generalized anxiety disorder Class 2 obesity due to excess calories without serious comorbidity in adult, unspecified BMI Vaginal discharge Leukorrhea, not specified as infective Pelvic pain in female Unspecified symptom associated with female genital organs documented [facility]* Diagnosis KELI (generalized anxiety disorder) ([facility])- Primary Generalized anxiety disorder Ear itching Fibromyalgia Unspecified myalgia and myositis Class 2 obesity due to excess calories without serious comorbidity in adult, unspecified BMI Thrombocytopenia ([facility])- Primary Unspecified thrombocytopenia Fibromyalgia Unspecified myalgia and myositis Class 2 obesity due to excess calories without serious comorbidity in adult, unspecified BMI KELI (generalized anxiety disorder) (CMS/HCC) Generalized anxiety disorder UTI symptoms RLS (restless legs syndrome) Restless legs syndrome (RLS) KELI (generalized anxiety disorder) ([facility])- Primary Generalized anxiety disorder Class 2 obesity [...] adult, unspecified BMI KELI (generalized anxiety disorder) ([facility])- Primary Generalized anxiety disorder Class 2 obesity due to excess calories without serious comorbidity with body mass index (BMI) of 35.0 to 35.9 in adult Tobacco dependence Tobacco use disorder Abnormal weight gain documented in this encounter [facility] HealthcareEvaluation note* Diagnosis Lower respiratory infection- Primary Other diseases of respiratory system, not elsewhere classified Acute non-recurrent pansinusitis documented in this encounter [facility]* Diagnosis KELI (generalized anxiety disorder) ([facility]/HCC)- Primary Generalized anxiety disorder Ear itching Fibromyalgia Unspecified myalgia and myositis Class 2 obesity due to excess calories without serious comorbidity in adult, unspecified BMI Thrombocytopenia ([facility])- Primary Unspecified thrombocytopenia Fibromyalgia Unspecified myalgia and myositis Class 2 obesity due to excess calories without serious comorbidity in adult, unspecified BMI KELI (generalized anxiety disorder) ([facility]/HCC) Generalized anxiety disorder UTI symptoms RLS (restless legs syndrome) Restless legs syndrome (RLS) KELI (generalized anxiety disorder) ([facility])- Primary Generalized anxiety disorder Class 2 obesity [...] myalgia and myositis KELI (generalized anxiety disorder) ([facility]) Generalized anxiety disorder Class 2 obesity due to excess calories without serious comorbidity in adult, unspecified BMI KELI (generalized anxiety disorder) ([facility])- Primary Generalized anxiety disorder Class 2 obesity due to excess calories without serious comorbidity with body mass index (BMI) of 35.0 to 35.9 in adult Tobacco dependence Tobacco use disorder Abnormal weight gain KELI (generalized anxiety disorder) ([facility]/HCC) Generalized anxiety disorder Fibromyalgia Unspecified myalgia and myositis documented in this encounter [facility] HealthcareEvaluation note* Diagnosis KELI (generalized anxiety disorder) ([facility]/HCC)- Primary Generalized anxiety disorder Ear itching Fibromyalgia Unspecified myalgia and myositis Class 2 obesity due to excess calories without serious comorbidity in adult, unspecified BMI Thrombocytopenia (CMS/HCC)- Primary Unspecified thrombocytopenia Fibromyalgia Unspecified myalgia and myositis Class 2 obesity due to excess calories without serious comorbidity in adult, unspecified BMI KELI (generalized anxiety disorder) ([facility]) Generalized anxiety disorder UTI symptoms RLS (restless legs syndrome) Restless legs syndrome (RLS) KELI (generalized anxiety disorder) ([facility])- Primary Generalized anxiety disorder Class 2 obesity [...] myalgia and myositis KELI (generalized anxiety disorder) ([facility]) Generalized anxiety disorder Class 2 obesity due to excess calories without serious comorbidity in adult, unspecified BMI KELI (generalized anxiety disorder) ([facility])- Primary Generalized anxiety disorder Class 2 obesity [...] HealthcareEvaluation note* Diagnosis KELI (generalized anxiety disorder) ([facility])- Primary Generalized anxiety disorder Ear itching Fibromyalgia Unspecified myalgia and myositis Class 2 obesity due to excess calories without serious comorbidity in adult, unspecified BMI Thrombocytopenia ([facility])- Primary Unspecified thrombocytopenia Fibromyalgia Unspecified myalgia and myositis Class 2 obesity due to excess calories without serious comorbidity in adult, unspecified BMI KELI (generalized anxiety disorder) ([facility]) Generalized anxiety disorder UTI symptoms RLS (restless legs syndrome) Restless legs syndrome (RLS) KELI (generalized anxiety disorder) ([facility])- Primary Generalized anxiety disorder Class 2 obesity [...] myalgia and myositis KELI (generalized anxiety disorder) ([facility]) Generalized anxiety disorder Class 2 obesity due to excess calories without serious comorbidity in adult, unspecified BMI KELI (generalized anxiety disorder) ([facility])- Primary Generalized anxiety disorder Class 2 obesity due to excess calories without serious comorbidity with body mass index (BMI) of 35.0 to 35.9 in adult Tobacco dependence Tobacco use disorder Abnormal weight gain Acute non-recurrent pansinusitis- Primary Tobacco dependence Tobacco use disorder KELI (generalized anxiety disorder) ([facility]) Generalized anxiety disorder documented in this encounter [...] HealthcareEvaluation note* Diagnosis KELI (generalized anxiety disorder) ([facility])- Primary Generalized anxiety disorder Ear itching Fibromyalgia Unspecified myalgia and myositis Class 2 obesity due to excess calories without serious comorbidity in adult, unspecified BMI Thrombocytopenia ([facility])- Primary Unspecified thrombocytopenia Fibromyalgia Unspecified myalgia and myositis Class 2 obesity due to excess calories without serious comorbidity in adult, unspecified BMI KELI (generalized anxiety disorder) ([facility]) Generalized anxiety disorder UTI symptoms RLS (restless legs syndrome) Restless legs syndrome (RLS) KELI (generalized anxiety disorder) ([facility])- Primary Generalized anxiety disorder Class 2 obesity [...] myalgia and myositis KELI (generalized anxiety disorder) ([facility]) Generalized anxiety disorder Class 2 obesity due to excess calories without serious comorbidity in adult, unspecified BMI KELI (generalized anxiety disorder) ([facility])- Primary Generalized anxiety disorder Class 2 obesity due to excess calories without serious comorbidity with body mass index (BMI) of 35.0 to 35.9 in adult Tobacco dependence Tobacco use disorder Abnormal weight gain Acute non-recurrent pansinusitis- Primary Tobacco dependence Tobacco use disorder Hx of high risk medication treatment Bipolar 1 disorder ([facility]) [facility]* Diagnosis Acute upper respiratory infection- Primary Acute upper respiratory infections of unspecified site documented in this encounter [facility] HealthEvaluation note* Diagnosis KELI (generalized anxiety disorder) ([facility])- Primary Generalized anxiety disorder Ear itching Fibromyalgia Unspecified myalgia and myositis Class 2 obesity due to excess calories without serious comorbidity in adult, unspecified BMI Thrombocytopenia ([facility])- Primary Unspecified thrombocytopenia Fibromyalgia Unspecified myalgia and myositis Class 2 obesity due to excess calories without serious comorbidity in adult, unspecified BMI KELI (generalized anxiety disorder) ([facility]) Generalized anxiety disorder UTI symptoms RLS (restless legs syndrome) Restless legs syndrome (RLS) KELI (generalized anxiety disorder) ([facility])- Primary Generalized anxiety disorder Class 2 obesity [...] myalgia and myositis KELI (generalized anxiety disorder) ([facility]) Generalized anxiety disorder Class 2 obesity due to excess calories without serious comorbidity in adult, unspecified BMI KELI (generalized anxiety disorder) ([facility])- Primary Generalized anxiety disorder Class 2 obesity due to excess calories without serious comorbidity with body mass index (BMI) of 35.0 to 35.9 in adult Tobacco dependence Tobacco use disorder Abnormal weight gain Acute non-recurrent pansinusitis- Primary Tobacco dependence Tobacco use disorder KELI (generalized anxiety disorder) ([facility]) Generalized anxiety disorder Bipolar 1 disorder ([facility]) documented in this encounter [facility] HealthcareEvaluation note* Diagnosis KELI (generalized anxiety disorder) ([facility])- Primary Generalized anxiety disorder Ear itching Fibromyalgia Unspecified myalgia and myositis Class 2 obesity due to excess calories without serious comorbidity in adult, unspecified BMI Thrombocytopenia ([facility])- Primary Unspecified thrombocytopenia Fibromyalgia Unspecified myalgia and myositis Class 2 obesity due to excess calories without serious comorbidity in adult, unspecified BMI KELI (generalized anxiety disorder) ([facility]) Generalized anxiety disorder UTI symptoms RLS (restless legs syndrome) Restless legs syndrome (RLS) KELI (generalized anxiety disorder) ([facility])- Primary Generalized anxiety disorder Class 2 obesity [...] myalgia and myositis KELI (generalized anxiety disorder) ([facility]) Generalized anxiety disorder Class 2 obesity due to excess calories without serious comorbidity in adult, unspecified BMI KELI (generalized anxiety disorder) ([facility])- Primary Generalized anxiety disorder Class 2 obesity due to excess calories without serious comorbidity with body mass index (BMI) of 35.0 to 35.9 in adult Tobacco dependence Tobacco use disorder Abnormal weight gain Acute non-recurrent pansinusitis- Primary Tobacco dependence Tobacco use disorder Bipolar 1 disorder ([facility]) Insomnia due to other mental disorder documented in this encounter [facility]* Diagnosis KELI (generalized anxiety disorder) ([facility])- Primary Generalized anxiety disorder Ear itching Fibromyalgia Unspecified myalgia and myositis Class 2 obesity due to excess calories without serious comorbidity in adult, unspecified BMI Thrombocytopenia ([facility])- Primary Unspecified thrombocytopenia Fibromyalgia Unspecified myalgia and myositis Class 2 obesity due to excess calories without serious comorbidity in adult, unspecified BMI KELI (generalized anxiety disorder) ([facility]) Generalized anxiety disorder UTI symptoms RLS (restless legs syndrome) Restless legs syndrome (RLS) KELI (generalized anxiety disorder) ([facility])- Primary Generalized anxiety disorder Class 2 obesity [...] myalgia and myositis KELI (generalized anxiety disorder) ([facility]) Generalized anxiety disorder Class 2 obesity due to excess calories without serious comorbidity in adult, unspecified BMI KELI (generalized anxiety disorder) ([facility])- Primary Generalized anxiety disorder Class 2 obesity due to excess calories without serious comorbidity with body mass index (BMI) of 35.0 to 35.9 in adult Tobacco dependence Tobacco use disorder Abnormal weight gain Acute non-recurrent pansinusitis- Primary Tobacco dependence Tobacco use disorder Bipolar 1 disorder ([facility]) KELI (generalized anxiety disorder) ([facility]) Generalized anxiety disorder documented in this encounter [facility]* Diagnosis Chronic fatigue Other malaise and fatigue documented in this encounter [facility] HealthEvaluation note* Diagnosis KELI (generalized anxiety disorder) ([facility])- Primary Generalized anxiety disorder Ear itching Fibromyalgia Unspecified myalgia and myositis Class 2 obesity due to excess calories without serious comorbidity in adult, unspecified BMI Thrombocytopenia ([facility])- Primary Unspecified thrombocytopenia Fibromyalgia Unspecified myalgia and myositis Class 2 obesity due to excess calories without serious comorbidity in adult, unspecified BMI KELI (generalized anxiety disorder) ([facility]) Generalized anxiety disorder UTI symptoms RLS (restless legs syndrome) Restless legs syndrome (RLS) KELI (generalized anxiety disorder) ([facility])- Primary Generalized anxiety disorder Class 2 obesity [...] myalgia and myositis KELI (generalized anxiety disorder) ([facility]) Generalized anxiety disorder Class 2 obesity due to excess calories without serious comorbidity in adult, unspecified BMI KELI (generalized anxiety disorder) ([facility])- Primary Generalized anxiety disorder Class 2 obesity due to excess calories without serious comorbidity with body mass index (BMI) of 35.0 to 35.9 in adult Tobacco dependence Tobacco use disorder Abnormal weight gain Acute non-recurrent pansinusitis- Primary Tobacco dependence Tobacco use disorder Attention deficit hyperactivity disorder (ADHD), unspecified ADHD type ([facility]) documented in this encounter [facility] HealthcareEvaluation note* Diagnosis KELI (generalized anxiety disorder) ([facility])- Primary Generalized anxiety disorder Ear itching Fibromyalgia Unspecified myalgia and myositis Class 2 obesity due to excess calories without serious comorbidity in adult, unspecified BMI Thrombocytopenia ([facility])- Primary Unspecified thrombocytopenia Fibromyalgia Unspecified myalgia and myositis Class 2 obesity due to excess calories without serious comorbidity in adult, unspecified BMI KELI (generalized anxiety disorder) ([facility]) Generalized anxiety disorder UTI symptoms RLS (restless legs syndrome) Restless legs syndrome (RLS) KELI (generalized anxiety disorder) ([facility])- Primary Generalized anxiety disorder Class 2 obesity [...] myalgia and myositis KELI (generalized anxiety disorder) ([facility]) Generalized anxiety disorder Class 2 obesity due to excess calories without serious comorbidity in adult, unspecified BMI KELI (generalized anxiety disorder) ([facility])- Primary Generalized anxiety disorder Class 2 obesity due to excess calories without serious comorbidity with body mass index (BMI) of 35.0 to 35.9 in adult Tobacco dependence Tobacco use disorder Abnormal weight gain Acute non-recurrent pansinusitis- Primary Tobacco dependence Tobacco use disorder Attention deficit hyperactivity disorder (ADHD), unspecified ADHD type ([facility]) KELI (generalized anxiety disorder) ([facility]) Generalized anxiety disorder Bipolar 1 disorder ([facility]) documented [facility] encounter [facility]* Diagnosis KELI (generalized anxiety disorder) ([facility])- Primary Generalized anxiety disorder Ear itching Fibromyalgia Unspecified myalgia and myositis Class 2 obesity due to excess calories without serious comorbidity in adult, unspecified BMI Thrombocytopenia ([facility])- Primary Unspecified thrombocytopenia Fibromyalgia Unspecified myalgia and myositis Class 2 obesity due to excess calories without serious comorbidity in adult, unspecified BMI KELI (generalized anxiety disorder) ([facility]) Generalized anxiety disorder UTI symptoms RLS (restless legs syndrome) Restless legs syndrome (RLS) KEIL (generalized anxiety disorder) ([facility])- Primary Generalized anxiety disorder Class 2 obesity [...] myalgia and myositis KELI (generalized anxiety disorder) ([facility]) Generalized anxiety disorder Class 2 obesity due to excess calories without serious comorbidity in adult, unspecified BMI KELI (generalized anxiety disorder) ([facility])- Primary Generalized anxiety disorder Class 2 obesity due to excess calories without serious comorbidity with body mass index (BMI) of 35.0 to 35.9 in adult Tobacco dependence Tobacco use disorder Abnormal weight gain Acute non-recurrent pansinusitis- Primary Tobacco dependence Tobacco use disorder Bipolar 1 disorder ([facility]) Insomnia due to other mental disorder Attention deficit hyperactivity disorder (ADHD), predominantly inattentive type ([facility]) documented in [facility] encounter [facility]* Diagnosis KELI (generalized anxiety disorder) ([facility])- Primary Generalized anxiety disorder Ear itching Fibromyalgia Unspecified myalgia and myositis Class 2 obesity due to excess calories without serious comorbidity in adult, unspecified BMI Thrombocytopenia ([facility])- Primary Unspecified thrombocytopenia Fibromyalgia Unspecified myalgia and myositis Class 2 obesity due to excess calories without serious comorbidity in adult, unspecified BMI KELI (generalized anxiety disorder) ([facility]) Generalized anxiety disorder UTI symptoms RLS (restless legs syndrome) Restless legs syndrome (RLS) KELI (generalized anxiety disorder) ([facility])- Primary Generalized anxiety disorder Class 2 obesity [...] myalgia and myositis KELI (generalized anxiety disorder) ([facility]) Generalized anxiety disorder Class 2 obesity due to excess calories without serious comorbidity in adult, unspecified BMI KELI (generalized anxiety disorder) ([facility])- Primary Generalized anxiety disorder Class 2 obesity due to excess calories without serious comorbidity with body mass index (BMI) of 35.0 to 35.9 in adult Tobacco dependence Tobacco use disorder Abnormal weight gain Acute non-recurrent pansinusitis- Primary Tobacco dependence Tobacco use disorder Bipolar 1 disorder ([facility]) KELI (generalized anxiety disorder) ([facility]) Generalized anxiety disorder Opioid dependence in remission ([facility]) Opioid type dependence, in remission Attention deficit hyperactivity disorder (ADHD), predominantly inattentive type ([facility]) Insomnia due to other mental disorder documented in this encounter [facility]* Diagnosis KELI (generalized anxiety disorder)- Primary Generalized anxiety disorder Ear itching Fibromyalgia Unspecified myalgia and myositis Class 2 obesity due to excess calories without serious comorbidity in adult, unspecified BMI Thrombocytopenia- Primary Unspecified thrombocytopenia Fibromyalgia Unspecified myalgia and myositis Class 2 obesity due to excess calories without serious comorbidity in adult, unspecified BMI KELI (generalized anxiety disorder) Generalized anxiety disorder UTI symptoms RLS (restless legs syndrome) Restless legs syndrome (RLS) KELI (generalized anxiety disorder)- Primary Generalized anxiety disorder Class 2 obesity [...] myalgia and myositis KELI (generalized anxiety disorder) Generalized anxiety disorder Class 2 obesity due to excess calories without serious comorbidity in adult, unspecified BMI KELI (generalized anxiety disorder)- Primary Generalized anxiety disorder Class 2 obesity due to excess calories without serious comorbidity with body mass index (BMI) of 35.0 to 35.9 in adult Tobacco dependence Tobacco use disorder Abnormal weight gain Acute non-recurrent pansinusitis- Primary Tobacco dependence Tobacco use disorder Bipolar 1 disorder (HCC) KELI (generalized anxiety disorder) Generalized anxiety disorder Attention deficit hyperactivity disorder (ADHD), predominantly inattentive type [facility] Viral syndrome- Primary Unspecified viral infection, in conditions classified elsewhere and of unspecified site Other headache syndrome Diarrhea, unspecified type [facility] Diagnosis Generalized anxiety disorder- Primary ADHD, predominantly inattentive type Attention deficit disorder without mention of hyperactivity Bipolar affective disorder, remission status unspecified (HCC) [facility] Diagnosis Encounter for well adult exam without abnormal findings- Primary Need for hepatitis C screening test Special screening examination for other specified viral diseases Screening for HIV without presence of risk factors Special screening examination for other specified viral diseases Chronic fatigue Other malaise and fatigue KELI (generalized anxiety disorder) Generalized anxiety disorder Attention deficit hyperactivity disorder (ADHD), predominantly inattentive type Bipolar 1 disorder (HCC) Bipolar I disorder, most recent episode (or current) unspecified Bacterial vaginosis- Primary Vaginitis and vulvovaginitis, unspecified Acute cystitis with hematuria Acute cystitis [facility] Diagnosis KELI (generalized anxiety disorder)- Primary Generalized anxiety disorder Ear itching Fibromyalgia Unspecified myalgia and myositis Class 2 obesity due to excess calories without serious comorbidity in adult, unspecified BMI Thrombocytopenia- Primary Unspecified thrombocytopenia Fibromyalgia Unspecified myalgia and myositis Class 2 obesity due to excess calories without serious comorbidity in adult, unspecified BMI KELI (generalized anxiety disorder) Generalized anxiety disorder UTI symptoms RLS (restless legs syndrome) Restless legs syndrome (RLS) KELI (generalized anxiety disorder)- Primary Generalized anxiety disorder Class 2 obesity [...] myalgia and myositis KELI (generalized anxiety disorder) Generalized anxiety disorder Class 2 obesity due to excess calories without serious comorbidity in adult, unspecified BMI KELI (generalized anxiety disorder)- Primary Generalized anxiety disorder Class 2 obesity due to excess calories without serious comorbidity with body mass index (BMI) of 35.0 to 35.9 in adult Tobacco dependence Tobacco use disorder Abnormal weight gain Acute non-recurrent pansinusitis- Primary Tobacco dependence Tobacco use disorder Vaginal itching Pruritus of genital organs Nipple discharge Other sign and symptom in breast Breast pain Mastodynia UTI symptoms documented in this encounter [facility] Narrative - Reported* Type Description Date Surgical History Gallbladder 2010 Surgical History t&a Surgical History tubal ligation [facility] Other History general Narrative - Reported* Type Description Date Surgical History Gallbladder 2009 Surgical History t&a Surgical History tubal ligation Hospitalization History see above [facility] Other Hospital Discharge instructions* Attachments The following attachments cannot be sent through Care Everywhere. * Headache (Kyrgyz) * Viral Infections (Kyrgyz) * Diarrhea ([place]) [facility] Family History No Family History [...] section and content) DATE CREATED AUTHOR 02/23/2020 [facility] DATE CREATED AUTHOR AUTHOR'S ORGANIZ ATION 08/26/2022 [facility] DATE CREATED AUTHOR AUTHOR'S ORGANIZ ATION 09/26/2023 [facility] DATE CREATED AUTHOR AUTHOR'S ORGANIZ ATION 06/06/2024 [facility] DATE CREATED AUTHOR AUTHOR'S ORGANIZ ATION 11/09/2024 [facility] DATE CREATED AUTHOR AUTHOR'S ORGANIZ ATION 01/14/2025 [facility] REASON FOR VISIT (unrecogniz ed [...] 02/03. 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 States weakness and dry cough over last several days. Denies chest pain/shortness of breath Reason Comments Vaginal Discharge Reason Comments Cough Ongoing for over a w [place]. Nonproductive, but patient states that she feels that her chest is congested, but she is unable to cough anything up. Denies chest pain. Headache Nasal Congestion Reason Comments Cough Reason Comments Psychiatric Evaluation Specialty Diagnoses / Procedures Referred By Contac t Referred To Contact Behavioral Health Diagnoses KELI (generalized anxiety disorder) ([facility]) Procedures [place] [facility] Rosario Escamilla NP [address] [place] [address] Phone: tel: fax: Kayla Narvaez NP [address] [facility] [address] [place] [address] Phone: tel: fax: Referral ID Status Reason Start Date Expiration Date V isits Requested Visits Authorized [id number] Closed Specialty Services Required 04/13/2024 10/10/2024 1 1 Reason Comments Med Management Follow-up Reason Comments Concern For COVID-19 Wants tested for co vid, body aches, headaches, back pain. Reports she tested positive at home tonight Letter for School/Work Reports she needs a note for work Reason Comments Anxiety Bipolar Specialty Diagnoses / Procedures Referred By Contact Referred To Contact Behavioral Health Diagnoses Counseling Procedures Counseling Jefry Pedraza, DIAGRAMMER-STEEL DIE ENGRAVER [address] [facility] [address] [place] [address] Phone: tel: fax: [facility] [address] [facility] [address] [place] [address] Phone: tel: fax: Referral ID Status Reason Start Date Expiration Date Visits Re quested Visits Authorized [id number] Closed 05/23/2024 11/19/2024 1 1 Reason Comments Bipolar Anxiety Reason Comments Med Management Follow-up Reason Comments ADHD Anxiety Bipolar Reason Comments Headache Diarrhea Onset yesterday pt c omplains of headache and diarrhea, requesting a work note Reason Comments Vaginal Bleeding Pt complaint of lowe r back pain, pain to bilateral hips, and lower abdomen/pelvis. Pain for the last 2 days, but vaginal bleeding starting 4 days ago. Bleeding primarily with urination. Has an IUD and has not had a period for the last year. Reason Comments Bilat. Breast Leakage and BV Ordered Prescriptions (unrec ognized section and content) [...] 2 - 5 6 tablet 04/22/2024 05/02/2024 Prescription Sig Dispense Quantity Refills Last Filled Start Date End Date cefUROXime (CEFTIN) 500 MG tablet Take 1 tablet by mouth 2 times daily for 7 days 14 tablet 01/12/2025 5 metroNIDAZOLE (FLAGYL) 500 MG tablet Take 1 tablet by mouth 3 times daily for 10 days 30 tablet 01/12/2025 5 phenazopyridine (PYRIDIUM) 100 MG tablet Take 2 tablets by mouth 3 times daily as needed for Pain 18 tablet 01/12/2025 5 Scheduled Active and Recently Administ ered Medications [...] mg from all sources in 24 hours. 2209 (Given - Provid er: Rosario Chavez RN) Care Teams (unrecognized sec tion and content) Engine Watchman Relationship Specialty Start Date End Date Baldemar Galvan MD [address] [facility] [place], [place] [id number] PCP - General Family Medicine 10/23/22 Engine Watchman Relationship Specialty Start Date End Date Luciano Cardona MD PCP - General Family Medicine 12/09/22 Rosario Escamilla NP [address] [place] [id number] Referring Physician Nurse Practitioner 12/09/22 Team Status: Inactive Member Role Status Dates Rosario Escamilla Attending Provider Active Start: September 23, 2023 End: September 23, 2023 Engine Watchman Relationship Specialty Start Date End Date Luciano Cardona MD [address] [place] [id number] PCP - General Family Medicine 09/21/23 Rosario Escamilla NP [address] [place] [address] Referring Physician Nurse Practitioner 12/09/22 Engine Watchman Relationship Specialty Start Date End Date Luciano Cardona MD [address] [place] [address] PCP - General Family Medicine 09/21/23 Rosario Escamilla NP [address] [place] [address] Referring Physician Nurse Practitioner 12/09/22 Engine Watchman Relationship Specialty Start Date End Date Luciano Cardona MD [address] [place] [address] PCP - General [facility] 09/21/23 Rosario Escamilla NP [address] [place] [address] Referring Physician Nurse Practitioner 12/09/22 Engine Watchman Relationship Specialty Start Date End Date Luciano Cardona MD [address] [place] [address] PCP - General Family [facility] 09/21/23 Montana Franklin DO [address] [place] [address] [place] [address] PCP - [facility] 02/23/24 Rosario Escamilla NP [address] [place] [address] Referring Physician Nurse Practitioner 12/09/22 Engine Watchman Relationship Specialty Start Date End Date Luciano Cardona MD [address] [place] [address] PCP - General [facility] 09/21/23 Montana Franklin DO [address] [place], [place] [id number] PCP - [facility] 02/23/24 Rosario Escamilla, SAROJ [address] [place] [address] Referring Physician Nurse Practitioner 12/09/22 Engine Watchman Relationship Specialty Start Date End Date Luciano Cardona MD [address] [place] [address] PCP - [facility] 09/21/23 Montana Franklin DO [facility] [place] [address] PCP [facility] 02/23/24 Rosario Escamilla, SAROJ [address] [place] [address] Referring Physician Nurse Practitioner 12/09/22 Engine Watchman Relationship Specialty Start Date End Date Luciano Cardona MD [address] [place] [address] PCP - [facility] 09/21/23 Montana Franklin DO [address] [place], [place] [phone] PCP [facility] 02/23/24 Rosario Escamilla, SAROJ [address] [place] [address] Referring Physician Nurse Practitioner 12/09/22 Engine Watchman Relationship Specialty Start Date End Date Luciano Cardona MD [address] [place] [address] PCP - General [facility] 09/21/23 Montana Franklin DO [facility] [place] [address] [facility] 02/23/24 Rosario Escamilla NP [address] [place] [address] Referring Physician Nurse Practitioner 12/09/22 Engine Watchman Relationship Specialty Start Date End Date Luciano Cardona MD [address] [place] [address] PCP - [facility] 09/21/23 Montana Franklin DO [address] [place], [place] [address] [address] PCP [facility] 02/23/24 Rosario Escamilla NP [address] [place] [address] Referring Physician Nurse Practitioner 12/09/22 Engine Watchman Relationship Specialty Start Date End Date Luciano Cardona MD [address] [place] [address] PCP - General Family Medicine 09/21/23 Montana Franklin DO [address] [place] [address] [place] [address] PCP [facility] 02/23/24 Rosario Escamilla, SAROJ [address] [place] [address] Referring Physician Nurse Practitioner 12/09/22 Engine Watchman Relationship Specialty Start Date End Date Luciano Cardona MD [address] [place] [address] PCP - General [facility] 09/21/23 Montana Franklin DO [address] [place] [address] [place] [address] PCP - [facility] 02/23/24 Rosario Escamilla NP [address] [place] [address] Referring Physician Nurse Practitioner 12/09/22 Engine Watchman Relationship Specialty Start Date End Date Luciano Cardona MD [address] [place] [address] PCP - General Family Medicine 09/21/23 Rosario Escamilla, SAROJ [address] [place] [address] Referring Physician Nurse Practitioner 12/09/22 Engine Watchman Relationship Specialty Start Date End Date Luciano Cardona MD [address] [place] [address] PCP - General [facility] 09/21/23 Montana Franklin DO [address] [place] [address] PCP [facility] 02/23/24 Rosario Escamilla, SAROJ [address] [place] [address] Referring Physician Nurse Practitioner 12/09/22 Engine Watchman Relationship Specialty Start Date End Date Luciano Cardona MD [address] [place] [address] PCP - [facility] 09/21/23 Montana Franklin DO [address] [place], [place] [address] [address] PCP [facility] 02/23/24 Rosario Escamilla, SAROJ [address] [place] [address] Referring Physician Nurse Practitioner 12/09/22 Engine Watchman Relationship Specialty Start Date End Date Luciano Cardona MD [address] [place] [address] PCP - [facility] 09/21/23 Rosario Escamilla, SAROJ [address] [place] [address] Referring Physician Nurse Practitioner 12/09/22 Engine Watchman Relationship Specialty Start Date End Date Luciano Cardona MD [address] [place] [address] PCP - [facility] 09/21/23 Rosario Escamilla NP [address] [place] [address] Referring Physician Nurse Practitioner 12/09/22 Engine Watchman Relationship Specialty Start Date End Date Luciano Cardona MD [address] [place] [address] PCP - [facility] 09/21/23 Montana Franklin DO [address] [place] [address] [place] [address] PCP - [facility] 02/23/24 Rosario Escamilla NP [address] [place] [address] Referring Physician Nurse Practitioner 12/09/22 Engine Watchman Relationship Specialty Start Date End Date Luciano Cardona MD [address] [place] [address] PCP - [facility] 09/21/23 Montana Franklin DO [address] [place] [address] [address] [place], [place] [phone] PCP [facility] 02/23/24 Rosario Escamilla NP [address] [place] [address] Referring Physician Nurse Practitioner 12/09/22 Engine Watchman Relationship Specialty Start Date End Date RigobertoMontana [address] [place] [address] PCP [facility] 02/23/24 Rosario Escamilla, STARTER MECHANIC [address] [place] [address] Referring Physician Nurse Practitioner 12/09/22 Engine Watchman Relationship Specialty Start Date End Date RigobertoMontanaDO [address] [place] [address] PCP [facility] 02/23/24 Rosario Escamilla, SAROJ [address] [place] [address] Referring Physician Nurse Practitioner 12/09/22 Engine Watchman Relationship Specialty Start Date End Date Montana Franklin [address] [place] [address] PCP [facility] 02/23/24 Rosario Escamilla, STARTER MECHANIC [address] [place] [address] Referring Physician Nurse Practitioner 12/09/22 Jefry Pedraza, DIAGRAMMER-STEEL DIE ENGRAVER [address] [place] [address] Nurse Practitioner Psychiatry 06/10/24 Obdulio Collins LPC [facility] 06/29/24 Engine Watchman Relationship Specialty Start Date End Date Chrissy Frankliny, DO [address] [place] [address] PCP [facility] 02/23/24 Rosario Escamilla, STARTER MECHANIC [address] [place] [address] Referring Physician Nurse Practitioner 12/09/22 Jefry Pedraza, DIAGRAMMER-STEEL DIE ENGRAVER [address] [place] [address] Nurse Practitioner Psychiatry 06/10/24 Obdulio Collins LPC Multiple Slide Operator [facility] 06/29/24 Engine Watchman Relationship Specialty Start Date End Date Chrissy Frankliny, DO [facility] [place] [address] PCP [facility] 02/23/24 Rosario Escamilla, STARTER MECHANIC [address] [place] [address] Referring Physician Nurse Practitioner 12/09/22 Jefry Pedraza, DIAGRAMMER-STEEL DIE ENGRAVER [address] [facility] [address] [place] [address] Nurse Practitioner Psychiatry 06/10/24 Obdulio Collins LPC Multiple Slide Operator Behavior[facility] 06/29/24 Engine Watchman Relationship Specialty Start Date End Date Rigoberto Montana, DO [address] [place] [address] PCP - [facility] 02/23/24 Rosario Escamilla NP [address] [place] [address] Referring Physician Nurse Practitioner 12/09/22 Jefry Pedraza, DIAGRAMMER-STEEL DIE ENGRAVER [address] [facility] [address] [place] [address] Nurse Practitioner Psychiatry 06/10/24 Obdulio Collins LPC Multiple Slide Operator Behavior[facility] 06/29/24 Engine Watchman Relationship Specialty Start Date End Date Montana Franklin DO [facility] [place] [address] PCP - [facility] 02/23/24 Rosario Escamilla NP [address] [place] [address] Referring Physician Nurse Practitioner 12/09/22 Jefry Pedraza, DIAGRAMMER-STEEL DIE ENGRAVER [address] [facility] [address] [place] [address] Nurse Practitioner Psychiatry 06/10/24 Obdulio Collins LPC Multiple Slide Operator [facility] 06/29/24 Engine Watchman Relationship Specialty Start Date End Date Noah Sanabria, DIAGRAMMER - 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 [address] [address] PCP - General Family Medicine 08/24/24 Engine Watchman Relationship Specialty Start Date End Date Montana Franklin DO [address] [place] [address] PCP [facility] 02/23/24 Rosario Escamilla, SAROJ [address] [place] [address] Referring Physician Nurse Practitioner 12/09/22 Jefry Pedraza, DIAGRAMMER-STEEL DIE ENGRAVER [address] [place] [address] Nurse Practitioner Psychiatry 06/10/24 Obdulio Collins LPC Multiple Slide Operator [facility] 06/29/24 Engine Watchman Relationship Specialty Start Date End Date Montana Franklin DO [address] [place] [address] PCP [facility] 02/23/24 Rosario Escamilla NP [address] [place] [address] Referring Physician Nurse Practitioner 12/09/22 Jefry Pedraza, DIAGRAMMER-STEEL DIE ENGRAVER [address] [address] [place] [address] Nurse Practitioner Psychiatry 06/10/24 Obdulio Collins LPC Multiple Slide Operator [facility] 06/29/24 Engine Watchman Relationship Specialty Start Date End Date Montana Franklin DO [address] [place] [address] PCP [facility] 02/23/24 Rosario Escamilla, STARTER MECHANIC [address] [place] [address] Referring Physician Nurse Practitioner 12/09/22 Jefry Pedraza APRN-STEEL DIE ENGRAVER [address] [facility] [address] [place] [address] Nurse Practitioner Psychiatry 06/10/24 Obdulio Collins LPC Multiple Slide Operator [facility] 06/29/24 Engine Watchman Relationship Specialty Start Date End Date Montana Franklin [address] [place] [address] PCP [facility] 02/23/24 Rosario Escamilla NP [address] [place] [address] Referring Physician Nurse Practitioner 12/09/22 Jefry Pedraza DIAGRAMMER-STEEL DIE ENGRAVER [address] [facility] [address] [place] [address] Nurse Practitioner Psychiatry 06/10/24 Obdulio Collins LPC Multiple Slide Operator [facility] 06/29/24 Engine Watchman Relationship Specialty Start Date End Date Montana Franklin [address] [place] [address] PCP - [facility] 02/23/24 Rosario Escamilla, SAROJ [address] [place] [address] Referring Physician Nurse Practitioner 12/09/22 Jefry Pedraza DIAGRAMMER-STEEL DIE ENGRAVER [address] [facility] [address] [place] [address] Nurse Practitioner Psychiatry 06/10/24 Obdulio Collins LPC Multiple Slide Operator Behavioral [facility] 06/29/24 Engine Watchman Relationship Specialty Start Date End Date Montana Franklin DO [address] [place] [address] [place] [address] PCP - [facility] 02/23/24 Rosario Escamilla, SAROJ [address] [place] [address] Referring Physician Nurse Practitioner 12/09/22 Jefry Pedraza APRN-STEEL DIE ENGRAVER [address] [facility] [address] [place] [address] Nurse Practitioner Psychiatry 06/10/24 Obdulio Collins LPC Multiple Slide Operator [facility] 06/29/24 Engine Watchman Relationship Specialty Start Date End Date Noah Sanabria APRN - 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 [address] [place] [address] PCP - General Family Medicine 08/24/24 Engine Watchman Relationship Specialty Start Date End Date Noah Sanabria CNP [address] [place] [address] [phone] Maternal [facility] 12/09/24 Engine Watchman Relationship Specialty Start Date End Date Noah Sanabria APRN - [place] [address] [place] [address] [id number] PCP - General Family Medicine 08/24/24 Engine Watchman Relationship Specialty Start Date End Date Montana Franklin DO [address] [place] [address] PCP [facility] 02/23/24 Rosario Escamilla NP Referring Physician Nurse Practitioner 12/09/22 Jefry Pedraza DIAGRAMMER-[facility] [address] [facility] [address] [place] [address] Nurse Practitioner Psychiatry 06/10/24 Obdulio Collins LPC Multiple Slide Operator Behavioral Health 06/29/24 Engine Watchman Relationship Specialty Start Date End Date Montana Franklin DO [address] [place] [address] [facility] 02/23/24 Rosario Escamilla, SAROJ Referring Physician Nurse Practitioner 12/09/22 Jefry Pedraza, [facility] [address] [facility] [address] [place] [address] Nurse Practitioner Psychiatry 06/10/24 Obdluio Collins LPC Multiple Slide Operator Behavioral Health 06/29/24 Goals (unrecognized section and content) Goals may be documented in a n alternate section Source Comments (unrecognize d section and content) In the event this informatio n is protected by the Federal Confidentiality of Alcohol and Drug Abuse Patient Records regulations: The Federal rules restrict any use of the information to criminally investigate or prosecute any alcohol or drug abuse patient.[facility] FOR RECORDS PERTAINING TO PATIENTS WHO ARE [...] BE BASED ON THE PRIMARY CLINICAL RECORDS. [facility] [employer] provides no warranty or guarantee of the accuracy or completeness of information in this document.
== END 2025-01-31 19:51 | disposition home or self-care (01) ==
LOC: LAB 19:50
PROVIDERS: PCP Obstetrics & Gynecology; Visit Provider Physician Assistant
DX: N64.52 Nipple discharge (principal)
CPT/HCPCS: 87070; 87075